=== PATIENT | male | born 1985 | race Caucasian/White ===

== ENCOUNTER 2019-01-21 14:25 | Emergency (ER) | payer OTHER, SELFPAY ==
[2019-01-21 14:26] VITALS: BP 163/104; PULSE 99; RESP 20; TEMP 37; O2SAT 99; BMI 30.8
--- NOTE | 2019-01-21 14:42 | ED.VISSUMM ---
- ER Visit Summary Date of Service: 01/21/19 Chief Complaint: Sore throat, ear pain History of Present Illness: The patient is a 33 M who is otherwise healthy presents to the emergency department sore throat. Patient symptoms began this morning. He states it worsened throughout the day. He states it hurts to swallow. He is stable to drink. He states he feels like something stuck or scratching in his throat. He has had prior tonsillectomy. He is also complaining of some mild right ear pain. He denies any fevers or chills. He denies any cough. He is otherwise healthy. Physical Examination: Exam is relatively unremarkable. The posterior oropharynx is patent. There is no evidence of retropharyngeal or peritonsillar abscess. Patient has no trismus or stridor. He has no drooling. He does have evidence of uvulitis and some palatal petechiae. Neck is supple with scant anterior lymphadenopathy. Heart is regular in rhythm. Lungs are clear. Abdomen soft. Test Results: [] Emergency Department Course and Treatment: Based on the patient's exam, I do feel her symptoms are consistent with a strep pharyngitis. He has palatal petechiae, edema of his uvula, and lymphadenopathy. Patient was given Decadron, viscous lidocaine, Zofran, and Augmentin. The patient did have some improvement of his symptoms. Again, he is able to speak and swallow without issue. I am going to continue him on Decadron and Augmentin. He was counseled on concerning symptoms and reasons to return. He will be discharged home. Treatment Plan: [] Disposition: Discharge Impression: 1. Strep pharyngitis This note was generated with Browserling dictation software. It may contain incorrect words, spelling, and punctuation that were not noted in review of the chart prior to signing ED Disposition - Plan for ED Patient: Instructions: ED Strep Pharyngitis Conf Prescriptions: Ondansetron [Zofran Odt] 4 mg PO Q8H PRN PRN #10 tab PRN Reason: Nausea Amox/Clavulanate Tablet [Augmentin Tablet] 875 mg PO Q12H #20 tab Dexamethasone [Decadron] 4 mg PO BIDCM #6 tab Referrals: Mannie Vargas DO [STAFF PHYSICIAN] -
[2019-01-21] MEDS: Amox/Clavulanate 875 MG Tablet PO (15:01)
[2019-01-21] MEDS: Ondansetron ODT 4 MG Tablet PO (15:01)
[2019-01-21 15:24] VITALS: BP 155/89; PULSE 106; RESP 18; O2SAT 99
== END 2019-01-21 15:25 | disposition home or self-care (01) ==
PROVIDERS: Emergency Provider Emergency Medicine
DX: J02.0 Streptococcal pharyngitis (principal); Z72.0 Tobacco use
CPT/HCPCS: 99283

== ENCOUNTER 2019-01-21 18:10 | Inpatient (IN) | payer OTHER, SELFPAY ==
[2019-01-21] VITALS (20 sets, daily range): BP systolic 106–259; BP diastolic 12–171; PULSE 63–121; RESP 12–20; TEMP 36.4–37.6; O2SAT 95–100; BMI 30.8; BMI 36.9; BMI 32.7
--- NOTE | 2019-01-21 18:30 | CT_ITS ---
We are attempting to reach Kenneth Early MD to discuss findings. An addendum with communication details will be sent when the communication is complete. STUDY: CT SOFT TISSUE NECK WITHOUT CONTRAST REASON FOR EXAM: Male, 33 years old. Neck pain, fullness, sore throat RADIATION DOSAGE (If Supplied By Facility): CTDIvol = ( 21.71 ) mGy, DLP = ( 596.22 ) mGycm TECHNIQUE: The patient was scanned in a multi-detector CT scanner. High resolution transaxial imaging was performed without the administration of intravenous contrast material. Sagittal and coronal images were reconstructed. Individualized dose optimization techniques were used for this CT. COMPARISON: None. FINDINGS: Normal bilateral parotid glands. 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 Normal bilateral parapharyngeal spaces. Normal bilateral carotid spaces. Normal bilateral sublingual and submandibular glands and spaces. Normal visualized nasopharynx. Normal retropharyngeal space. Normal perivertebral space. Mild prominence of the lingual tonsil. The visualized tongue, tongue base and oropharynx are normal. Mild cervical adenopathy. There is no demonstrated solid or cystic mass lesion. Thickened epiglottis with gas noted. Normal bilateral vallecula and hypopharynx. The pre-epiglottic and paraglottic adipose spaces are normal. Normal visualized bilateral piriform sinuses, aryepiglottic folds, vocal cords, and arytenoid-cricoid articulations. Normal subglottic trachea. Normal bilateral lobes of the thyroid gland. Normal visualized pulmonary apices. Mucosal thickening/retention cysts of the right maxillary sinus. Normal visualized cervical spine. CT/Soft Tissue Neck without Contr IMPRESSION: Thickened epiglottis with gas which could be infectious or traumatic in etiology. Mild prominence of the lingual tonsil. Mild bilateral cervical adenopathy. Electronically Signed: Arnold Valentin DO at 19:50 EDT Tel [phone], Service support ,
--- NOTE | 2019-01-21 20:13 | ED.VISSUMM ---
- ER Visit Summary Date of Service: 01/21/19 Chief Complaint: Sore throat History of Present Illness: The patient is a 33 M presented earlier to the emergency department for sore throat. He is here because he thinks it is worse. He denies any headache or chest pain. He tells me as long as he breathes through his nose he has no problems breathing. He is able to talk but he tells me if he gets anxious he feels more short of breath. Physical Examination: Patient appears to be in no significant distress she he is lying comfortably speaking in full sentences however his voice is slightly muffled. He has not leaning forward he is not sitting in a sniffing position. He does appear somewhat anxious. Examining the posterior oropharynx there is some erythema no obvious exudates or edema. No C-spine tenderness supple neck. Regular rate and rhythm without any obvious murmurs Clear lungs bilaterally speaking in full sentences without any obvious respiratory distress. There is no stridor. Abdomen soft and nontender no guarding or rebound Moves all extremities without any difficulty or pain. Skin does not show any obvious rashes or lesions, no trauma. Alert oriented ?3 with no gross focal deficit Emergency Department Course and Treatment: I was worried since the patient had somewhat of a muffled voice and did a CT soft tissue neck, this showed epiglottitis with gas in the epiglottis. I reevaluated the patient. He is still speaking in full sentences but his voice is slightly more muffled than before, now he is sitting somewhat in a sniffing position. He tells me he cannot swallow his secretions or excrete them. At that time patient was moved to a resuscitation room. I did not have an ear nose and throat doctor television actor, however both anesthesia and Dr. Campbell called, Dr. Parish graciously came to the emergency department. Plan was to endotracheally intubate with backup of cricothyrotomy. Attempts to intubate by anesthesia and ENT were unsuccessful. At that time an LMA was inserted. Patient was able to be oxygenated quite well, plan is to go to the operating room for a tracheostomy. Patient received Zosyn, he had quite elevated white count. Disposition: To the operating room in critical condition Impression: Epiglottitis, supraglottitis Critical care time is 35 minutes. This does not include any procedures. This note was generated with Dragon dictation software. It may contain incorrect words, spelling, and punctuation that were not noted in review of the chart prior to signing ED Disposition - Plan for ED Patient: Referrals: Care Physician,No Primary [Primary Care Provider] -
--- NOTE | 2019-01-21 20:17 | ED.DCSUM_ITS ---
- ER Visit Summary Date of Service: 01/21/19 Chief Complaint: Sore throat History of Present Illness: The patient is a 33 M presented earlier to the emergency department for sore throat. He is here because he thinks it is worse. He denies any headache or chest pain. He tells me as long as he breathes thr ough his nose he has no problems breathing. He is able to talk but he tells me if he gets anxious he feels more short of breath. Physical Examination: Patient appears to be in no significant distress she he is lying comfortably speaking in full sentences however his voice is slightly muffled. He has not leaning forward he is not sitting in a sniffing position. He does appear somewhat anxious. Examining the posterior oropharynx there is some erythema no obvious exudates or edema. No C-spine tenderness supple neck. Regular rate and rhythm without any obvious murmurs Clear lungs bilaterally speaking in full sentences without any obvious respiratory distress. There is no stridor. Abdomen soft and nontender no guarding or rebound Moves all extremities without any difficulty or pain. Skin does not show any obvious rashes or lesions, no trauma. Alert oriented ?3 with no gross focal deficit Emergency Department Course and Treatment: I was worried since the patient had somewhat of a muffled voice and did a CT soft tissue neck, this showed epiglottitis with gas in the epiglottis. I reevaluated the patient. He is still speaking in full sentences but his voice is slightly more muffled than before, now he is sitting somewhat in a sniffing position. He tells me he cannot swallow his secretions or excrete them. At th at time patient was moved to a resuscitation room. I did not have an ear nose and throat doctor [employer] [facility] [employer], however both anesthesia and Dr. Campbell called, Dr. Parish graciously came to the emergency department. Plan was to endotracheally intubate with backup of cricothyrotomy. Attempts to intubate by anesthesia and ENT were unsuccessful. At that time an LMA was inserted. Patient was able to be oxygenated quite well, plan is to go to the operating room for a tracheostomy. Patient received Zosyn, he had quite elevated white count. Disposition: To the operating room in critical condition Impression: Epiglottitis, supraglottitis Critical care time is 35 minutes. This does not include any procedures. This note was generated with Dragon dictation software. It may contain incorrect words, spelling, and punctuation that were not noted in review of the chart prior to signing ED Disposition - Plan for ED Patient: Referrals: Care Physician,No Primary [Primary Care Provider] -
[2019-01-21 20:35] LABS: Absolute Lymphocyte Count 1.27 X10^3/ul (0.83-4.51); Absolute Neutrophil Count 30.8 X10^3/uL (2.0-7.7); Basophil# 0.05 X10^3/uL; Basophil% 0.2 % (0-1); Eosinophil# 0.01 X10^3/uL; Hematocrit 48.2 % (40-54); Hemoglobin 16.5 g/dl (13.0-16.5); Lymphocyte # 1.27 X10^3/ul (4.0); Lymphocyte % 3.9 % (19-41); Mean Corp Hgb Conc 34.2 g/gl (32-36); Mean Corpuscular Hgb 29.3 pg (27.0-32.0); Mean Corpuscular Volume 85.6 fL (80-94); Mean Platelet Vol. 11.2 fl (6.2-12.0); Monocyte# 0.68 X10^3/uL; Monocyte% 2.1 % (0-10); Neutrophil # 30.75 X10^3/uL (2.7-7.7); Neutrophil % 93.5 % (47-70); Platelet Count 215 K/mm3 (150-450); RBC Distribution Width CV 12.6 % (11.6-14.6); RBC Distribution Width SD 39.4 fl (35.1-43.9); Red Blood Count 5.63 M/mm3 (4.6-6.2)
[2019-01-21] MEDS: Etomidate 20 MG/10 ML Vial IV (20:35)
[2019-01-21] MEDS: Ketamine HCl 500 MG/5 ML Vial 100 MG IV (20:44)
[2019-01-21 20:45] LABS: Differential Indicated SCAN CRITERIA MET; POSITIVE COUNT YES; POSITIVE DIFFERENTIAL YES; POSITIVE MORPHOLOGY NO; White Blood Count 32.9 K/mm3 (4.4-11.0)
[2019-01-21] MEDS: Propofol 200 MG/20 ML Vial 50 MG IV BOLUS (20:47)
[2019-01-21 20:49] LABS: ALB/GLOB Ratio 1.1 RATIO (0.9-2.4); AST(SGOT) 40 U/L (15-37); Alanine Aminotransfer ALT/SGPT 92 U/L (16-61); Albumin, Serum 4.3 g/dL (3.2-5.0); Alkaline Phosphatase 89 U/L (45-117); Anion Gap 4 (5-15); BUN 15 mg/dL (7-18); BUN/Creat Ratio 13.9 RATIO (10-20); Calcium,Total 9.4 mg/dL (8.5-10.1); Chloride 107 mmol/L (98-107); Creatinine, Serum 1.08 mg/dL (0.70-1.30); EST Glomerular Filtration Rate 84 mL/min (>60); Est Glom Filt Rate - Afr Amer 102 mL/min (>60); Estimated Creatinine Clearance 98.19 ml/min; Globulin 3.9 g/dL (2.2-4.2); Glucose 117 mg/dL (74-106); Potassium 4.7 mmol/L (3.5-5.1); Protein, Total 8.2 g/dL (6.4-8.2); Sodium Level 138 mmol/L (136-145)
[2019-01-21] MEDS: Propofol 10MG/Ml 1,000 MG/100 ML Bottle 100.017 MG CONT INF (20:51)
--- NOTE | 2019-01-21 21:00 | CPS ---
Multiple attempts made to intubate patient with Mac 4 and glidescope by ENT and anesthesia. 4.5 LMA inserted by anesthesia and pt taken to OR for tracheostomy.
[2019-01-21 21:01] LABS: Differential Comment SCANNED
--- NOTE | 2019-01-21 21:05 | ED.RN ---
LACTIC OF 2.0 REPORTED TO
--- NOTE | 2019-01-21 21:10 | ED.RN ---
dr. rowe aware of wbc 32.9
--- NOTE | 2019-01-21 21:19 | PCM.HP.STD ---
Problem List (1) Epiglottitis Status: Acute (2) Severe sepsis Status: Acute (3) Tobacco use Status: Chronic (4) Obesity (BMI 30-39.9) Status: Chronic (5) History of ETOH abuse Status: Chronic (6) Hypertension Status: Chronic Qualifiers: Hypertension type: essential hypertension Qualified Code(s): I10 - Essential (primary) hypertension History of Present Illness Date of Admission: 01/21/19 Chief Complaint: Sore throat, difficulty swallowing, muffled voice. The patient is a 33 y/o M w/ PMHx: Tobacco use, Obesity, History of EtOH abuse, Hypertension off regimen for nearly 1 year per family report who presented initially earlier in the AM to [facility] on 01/21/19 with complaint of sore throat, difficulty swallowing and mild voice changes with ED administration abx and steroid regimen w/ discharge; however, patient had progressively worsened sore throat, eventual difficulty managing his secretions with worsened muffled voice and sensation of something being caught in his throat prompting return. He denied any associated fever or chills. Work-up in the ED included T 99.6, HR 96-->125-->101, BP 188/107, RR 18, 97% on RA-->BP 191/125, 14, 100% on RA, CBC w/ WBC 32.9, Hgb 16.5, Plt 215 with L shift, CMP notable glucose 117, AST/ALT 40/92, Bld Cx x 2 pending per ED, CT soft tissue/neck w/ thickened epiglottis with gas, mild prominence of the lingual tonsil, mild bilateral cervical adenopathy. In the ED patient clinically worsened, both ENT and anesthesia attempted intubation but was not successful therefore LMA placed and patient transitioned to the OR for tracheostomy placement. In the ED patient administered zosyn, NS, propofol, ketamine, succinylcholine as well as etomidate. Past Medical History Past Medical History (Chronic Problems): Chronic Problems Tobacco use (Chronic) Obesity (BMI 30-39.9) (Chronic) History of ETOH abuse (Chronic) Hypertension (Chronic) Allergies No Known Allergies Allergy (Verified 01/21/19 14:28) Home Medications: Ambulatory Orders Medication Instructions Recorded Amox/Clavulanate Tablet [Augmentin 875 mg PO Q12H #20 tab 01/21/19 Tablet] Dexamethasone [Decadron] 4 mg PO BIDCM #6 tab 01/21/19 Ondansetron [Zofran Odt] 4 mg PO Q8H PRN PRN #10 tab 01/21/19 Surgical History: cholecystectomy, tonsillectomy Psychiatric History: No pertinent psych hx Lives: Alone Smoking Status: Current some day smoker Tobacco Use: Cigarettes Alcohol: Heavy - Family notes history of heavy alcohol consumption on the weekends, up to 12 beers in one setting but states that he has not to their knowledge been drinking for the last several months. Drugs: None - *Family History Maternal History Items: Diabetes, Heart Disease, Hypertension Paternal History Items: Diabetes, Heart Disease, Hypertension Review of Systems Constitutional: Reports: Anorexia, Malaise, Weakness, Fatigue. Denies: Chills, Fever, Weight Change HEENT: Reports: Difficulty Swallowing, Sore Throat, - - Muffled voice.. Denies: Head Aches, Sinus Congestion, Sinus Drainage Cardiovascular: Denies: Chest Pain, Palpitations Respiratory: Denies: Cough, Shortness of breath at rest, Sputum production Gastrointestinal: Denies: Abdominal Pain, Nausea, Vomiting Genitourinary: Denies: Dysuria Musculoskeletal: Denies: Joint Pain, Joint Tenderness Skin: Denies: Rash, Wounds Neurological: Denies: Numbness, Tingling, Focal weakness Psychiatric: Denies: Anxiety, Depression, Homicidal Ideations, Suicidal Ideations Hematologic/ Lymphatic: Denies: Easy Bruising, Easy Bleeding Comment: ROS obtained per family as well as ED physician and ENT who evaluated the patient prior to his operative intervention and sedation. VTE Information - Inpt Only VTE Present on Admission: No VTE Mechan Device Prophylaxis: SCD's VTE Pharm Prophylaxis ordered?: Yes Patient Problems: Active and Suspected Problems Epiglottitis (Acute) Severe sepsis (Acute) Subjective: Laying in the ICU bed, status post tracheostomy placement, sedated. Objective: Physical Examination: General: Sedated, not alert, unable to answer any orientation questions, laying in the OR bed, status post recent tracheostomy placement. Skin: normal color, turgor, no icterus, cyanosis, no obvious bleeding from the recent tracheostomy placement. HEENT: AT/NC, EOM will to be assessed, PERRLA, dry MM, recent tracheostomy secondary to epiglottitis, no carotid bruits or JVD noted; ever, thickened neck makes examination difficult. Lungs: Symmetric rise, intubated, sedated, diminished bases, no rales, ronchi or wheezing. Heart: Tachycardic with regular rhythm; no gallop, rub audible. Abdomen: soft, obese, NTTP, ND, normal BS, no HSM;, habitus makes examination difficult. Extremities: no cyanosis, clubbing, or edema. Neurological: Sedated, not alert, unable to answer any orientation questions, laying in the OR bed, status post recent tracheostomy placement; cognitive function given sedation of course not baseline intact; pupils equally reactive to light and accomodation; cranial nerves able to be fully assessed given sedation, status post recent OR, strength accordingly severely globally decreased. Psychiatric: affect appears sedated, flat, no acute evidence of depressive or anxiety feelings. - Physical Exam Vital Signs Temp Pulse Resp BP Pulse Ox 99.6 F H 101 H 14 191/125 H 100 01/21/19 18:25 01/21/19 21:09 01/21/19 21:09 01/21/19 21:09 01/21/19 21:09 Oxygen Delivery Method Mechanical Ventilator Weight: 250 lb Body Mass Index (BMI) 36.9 Laboratory Tests Past 24 Hrs 01/21/19 01/21/19 01/21/19 20:19 20:19 20:19 WBC 32.9 H* RBC 5.63 Hgb 16.5 Hct 48.2 MCV 85.6 MCH 29.3 MCHC 34.2 RDW 12.6 RDW Differential 39.4 Plt Count 215 MPV 11.2 Immature Gran % (Auto) 0.300 Neut % (Auto) 93.5 H Lymph % (Auto) 3.9 L [place] % (Auto) 2.1 Eos % (Auto) 0.0 Baso % (Auto) 0.2 Absolute Neuts (auto) 30.8 H Absolute Lymphs (auto) 1.27 Total Counted Not Reportable Differential Comment SCANNED Diff Path Review May foll Sodium 138 Potassium 4.7 Chloride 107 Carbon Dioxide 27.0 Anion Gap 4 L BUN 15 Creatinine 1.08 Estim Creat Clear Calc 98.19 Est GFR (MDRD) Af Amer 102 Est GFR (MDRD) Non-Af 84 BUN/Creatinine Ratio 13.9 Glucose 117 H Lactic Acid 2.0 Calcium 9.4 Total Bilirubin 0.40 AST 40 H ALT 92 H Alkaline Phosphatase 89 Total Protein 8.2 Albumin 4.3 Globulin 3.9 Albumin/Globulin Ratio 1.1 Assessment/Plan All Active Problems Epiglottitis (Acute) Severe sepsis (Acute) The patient is a 33 y/o M w/ PMHx: Tobacco use, Obesity, History of EtOH Abuse, Hypertension off regimen for ~ 1 year per family report who presented initially earlier in the AM to [facility] on 01/21/19 with complaint of sore throat, difficulty swallowing and mild voice changes with ED administration abx and steroid regimen w/ discharge; however, patient had progressively worsened sore throat, eventual difficulty managing his secretions with worsened muffled voice and sensation of something being caught in his throat prompting return. He denied any associated fever or chills. (1) Acute Severe Sepsis secondary to Acute Epiglottitis, Supraglottitis: Work-up in the ED included T 99.6, HR 96-->125-->101, BP 188/107, RR 18, 97% on RA-->BP 191/125, 14, 100% on RA, CBC w/ WBC 32.9, Hgb 16.5, Plt 215 with L shift, CMP notable glucose 117, AST/ALT 40/92, Bld Cx x 2 pending per ED, CT soft tissue/neck w/ thickened epiglottis with gas, mild prominence of the lingual tonsil, mild bilateral cervical adenopathy. In the ED patient clinically worsened, both ENT and anesthesia attempted intubation but was not successful therefore LMA placed and patient transitioned to the OR for tracheostomy placement with notable sized thyroid, divided to safely place trach. Will admit to the ICU following trach placement per Dr. Richards, will treat with vanc and rocephin therapy, await OR cultures for de-escalation with expected swelling improvement over the next 24-48 hours, defer any further steroid usage given airway currently secured per discussion with ENT, routine trach care, continue sedation, ICU physician consultation. TSH, FT4 pending given OR findings. (2) Tobacco Abuse: Encourage cessation, inpatient consultation per RT, NR if desired although family notes sporadic. (3) Obesity: Weight loss and lifestyle changes encouraged. (4) Elevated LFTs w/ History of EtOH abuse: Family notes prior history of weekend binge drinking with 12 beers in single setting but note belief he has not in several months. Admission AST/ALT 40/92, hepatitis panel, liver US pending. Repeat CMP in AM. (5) Hypertension: Off regimen for nearly 1 year per family report, vital signs upon presentation with notably elevated blood pressures, continue to monitor, currently on sedation, PRN IV hydralazine with transition once oral intake safe to oral antihypertensive regimen. (6) GERD: Famotidine. (7) DVT Prophylaxis: SCDs, lovenox. Code Visit Inpatient E&M: 56820 Init Hosp L3
--- NOTE | 2019-01-21 21:22 | ED.RN ---
UNABLE TO INTUBATE. LMA 4.5 PLACED.
--- NOTE | 2019-01-21 22:21 | PCM.OPRPT ---
Report of Operation Date of Procedure: 01/21/19 Pre-Operative Diagnosis: supraglottitis Post-Operative Diagnosis: supraglottitis Surgery/Procedure Performed:: emergent tracheostomy with mitzi flap Type of Anesthesia:: General Description of Procedure: on the day of the procedure, the patient was taken urgently from the ED with a tenuous LMA in place with oxygen desaturations. he was left on the ED cart. his neck was injected with lidocaine/epinephrine and prepped/draped in sterile fashion. a 2cm low transverse incision was made 2cm superior to the sternal notch. a lipectomy was performed. the infrahyoid strap muscles were divided along their midline raphe and retracted laterally with allis clamps. the deep straps were also retracted laterally. immediately, the patient had a large thyroid gland overlying the first four tracheal rings. the isthmus was divided with the bovie. hemostasis was achieved. the airway was entered between tracheal rings 1 and 2. a mitzi flap was created. this was sutured to overlying skin with a 2-0 ethibond. the trachea was suctioned and a #8DCT trach tube was placed. the circuit was connected and confirmed end tidal CO2. the trach was sutured at 4 corners and secured with an umbilical tie. he was stable and transferred to the ICU.
--- NOTE | 2019-01-21 22:35 | CON.PCM_ITS ---
Problem List (1) Epiglottitis Status: Acute Reason for Consult Date of Consultation: 01/21/19 History of Present Illness: The patient is a 33 year old M with acute worsening sore throat who, per record, presented to the ED today, was treated with steroids/antibiotics and discharged. he returned tonight only with acute worsening which included inability to tolerate secretions, severely muffled voice; he had no stridor at this time. he proceeded to clinically deteriorate in the ED. a CT demonstrated severe supraglottic edema and lymphadenopathy. given his clinical course, it was deemed necessary to intubate him in the ED with anesthesia. the glide scope and MAC blade were both unsuccessful at obtaining glottic anatomic views given the severe status of his larynx. saturations were maintained throughout with bag masking. an LMA was placed to buy time and he was transported to the OR where an emergent tracheostomy was performed. Past Medical History Past Medical History (Chronic Problems): Chronic Problems Tobacco use (Chronic) Obesity (BMI 30-39.9) (Chronic) History of ETOH abuse (Chronic) Hypertension (Chronic) Allergies No Known Allergies Allergy (Verified 01/21/19 14:28) Home Medications: Ambulatory Orders Medication Instructions Recorded Amox/Clavulanate Tablet [Augmentin 875 mg PO Q12H #20 tab 01/21/19 Tablet] Dexamethasone [Decadron] 4 mg PO BIDCM #6 tab 01/21/19 Ondansetron [Zofran Odt] 4 mg PO Q8H PRN PRN #10 tab 01/21/19 Surgical History: cholecystectomy, tonsillectomy Psychiatric History: No pertinent psych hx Lives: Alone Smoking Status: Current some day smoker Tobacco Use: Cigarettes Alcohol: Heavy - Family notes history of heavy alcohol consumption on the weekends, up to 12 beers in one setting but states that he has not to their knowledge been drinking for the last several months. Drugs: None - *Family History Maternal History Items: Diabetes, Heart Disease, Hypertension Paternal History Items: Diabetes, Heart Disease, Hypertension Patient Problems: Active and Suspected Problems Epiglottitis (Acute) Severe sepsis (Acute) Subjective: x - Physical Exam General: Alert Oral: - - severe secretions, muffled voice Lungs: - - no stridor Vital Signs Temp Pulse Resp BP Pulse Ox 99.6 F H 101 H 14 191/125 H 100 01/21/19 18:25 01/21/19 21:09 01/21/19 21:09 01/21/19 21:09 01/21/19 21:09 Oxygen Delivery Method Room Air Weight: 113.398 kg Body Mass Index (BMI) 36.9 Laboratory Tests Past 24 Hrs 01/21/19 01/21/19 01/21/19 20:19 20:19 20:19 WBC 32.9 H* RBC 5.63 Hgb 16.5 Hct 48.2 MCV 85.6 MCH 29.3 MCHC 34.2 RDW 12.6 RDW Differential 39.4 Plt Count 215 MPV 11.2 Immature Gran % (Auto) 0.300 Neut % (Auto) 93.5 H Lymph % (Auto) 3.9 L [place] % (Auto) 2.1 Eos % (Auto) 0.0 Baso % (Auto) 0.2 Absolute Neuts (auto) 30.8 H Absolute Lymphs (auto) 1.27 Total Counted Not Reportable Differential Comment SCANNED Diff Path Review May foll Sodium 138 Potassium 4.7 Chloride 107 Carbon Dioxide 27.0 Anion Gap 4 L BUN 15 Creatinine 1.08 Estim Creat Clear Calc 98.19 Est GFR (MDRD) Af Amer 102 Est GFR (MDRD) Non-Af 84 BUN/Creatinine Ratio 13.9 Glucose 117 H Lactic Acid 2.0 Calcium 9.4 Total Bilirubin 0.40 AST 40 H ALT 92 H Alkaline Phosphatase 89 Total Protein 8.2 Albumin 4.3 Globulin 3.9 Albumin/Globulin Ratio 1.1 Assessment/Plan All Active Problems Epiglottitis (Acute) Severe sepsis (Acute) 33 year old male with acute supraglottitis -tracheostomy placed, airway secured -WBC 32k - this is likely a severe infection, but this WBC is after IV steroids. would treat for sepsis with IV antibiotics; i do not believe serial redosing with steroids is necessary. -will continue to follow
[2019-01-21] MEDS: Propofol 10MG/Ml 1,000 MG/100 ML Bottle 6.804 MG CONT INF (22:40)
[2019-01-21] MEDS: 0.9% Normal Saline 1,000 ML 125 ML IV (22:40)
[2019-01-21] MEDS: fentaNYL drip 100 ML 2.5 MCG IV (22:52)
[2019-01-21 23:00] LABS: Phosphorus 1.8 mg/dL (2.5-4.9); T4 Free Direct 0.94 ng/dL (0.76-1.46); Thyroid Stim Hormone (TSH) 0.23 uIU/mL (0.358-3.74)
[2019-01-21] MEDS: Chlorhexidine 15 ML PO (23:17)
[2019-01-21] MEDS: 0.9% NaCl Peripheral Flush Adult/Peds IV (23:20)
[2019-01-22] VITALS (34 sets, daily range): BP systolic 91–164; BP diastolic 40–94; PULSE 50–88; RESP 10–99; TEMP 36.4–36.9; O2SAT 17–100
[2019-01-22 00:01] LABS: Allen Test POS; Base Excess 0 mmol/L (-2 to +2); Bicarbonate 26.5 mmol/L (22-26); Blood Gas Specimen Type ART; FI02 50; Mode A-C; O2 Delivery Device Vent; PEEP 5; PO2 141 mmHG (75-100); RR 16; SITE L Radial; SO2 99 % (95-99); Time Given 2350; Total Carbon Dioxide 28 mmol/L; Vt 550; pCO2 53.8 mmHg (35-45)
[2019-01-22] MEDS: 0.9% NaCl Peripheral Flush Adult/Peds IV ×2 (00:15→10:30)
[2019-01-22 00:27] LABS: Reflex Lactate? Y
[2019-01-22 01:06] LABS: Amphetamine Urine VISTA NEGATIVE (<1000 ng/mL); Barbiturate Urine VISTA NEGATIVE (< 200 ng/mL); Benzodiazepine Urine VISTA NEGATIVE (< 200 ng/mL); Cocaine Urine VISTA NEGATIVE (< 300 ng/mL); Ecstacy Urine VISTA NEGATIVE (< 500 ng/mL); Methadone Urine VISTA NEGATIVE (< 300 ng/mL); PCP Urine VISTA NEGATIVE (< 25 ng/mL); THC Urine VISTA NEGATIVE (< 50 ng/mL); Vista UDS pH Range 5
--- NOTE | 2019-01-22 01:11 | PCM.RX.CS ---
Consult Pharmacy has been consulted to manage selected antiobiotic: Vancomycin Type of Consult: New start Suspected Infection: Sepsis Labs: Sodium 138 mmol/L (136-145) 01/21/19 20:19 Potassium 4.7 mmol/L (3.5-5.1) 01/21/19 20:19 Chloride 107 mmol/L (98-107) 01/21/19 20:19 Carbon Dioxide 27.0 mmol/L (21.0-32.0) 01/21/19 20:19 Anion Gap 4 (5-15) L 01/21/19 20:19 BUN 15 mg/dL (7-18) 01/21/19 20:19 Creatinine 1.08 mg/dL (0.70-1.30) 01/21/19 20:19 Est GFR (MDRD) Af Amer 102 mL/min (>60) 01/21/19 20:19 Est GFR (MDRD) Non-Af 84 mL/min (>60) 01/21/19 20:19 BUN/Creatinine Ratio 13.9 RATIO (10-20) 01/21/19 20:19 Glucose 117 mg/dL (74-106) H 01/21/19 20:19 Weight used for dosin kg Estimated Creatinine Clearance: 98.19 Goal Trough: 10-15 mcg/mL Pharmacy Plan for Drug Dosing: Pharmacy Service will continue to monitor and adjust dosing as required. Medications Vancomycin HCl 1,500 mg/ (Sodium Chloride) 530 mls @ 250 mls/hr IV Q12H MELODY Vancomycin HCl 2,000 mg/ (Sodium Chloride) 540 mls @ 250 mls/hr IV X1 ONE Stop: 01/22/19 01:39 Last Admin: 01/22/19 00:16 Dose: 250 mls/hr Follow-Up Labs: Trough Vancomycin Labs to be done on [date and time ordered]: 16 @ 1238
[2019-01-22 01:30] LABS: Lactic Acid 2.5 mmol/L (0.4-2.0)
[2019-01-22] MEDS: Propofol 10MG/Ml 1,000 MG/100 ML Bottle 6.804 MG CONT INF ×2 (01:53→05:44)
[2019-01-22] MEDS: 0.9% Normal Saline 1,000 ML 999 ML IV ×2 (05:55→06:16)
--- NOTE | 2019-01-22 05:55 | US_ITS ---
STUDY: ABDOMINAL ULTRASOUND - RIGHT UPPER QUADRANT REASON FOR VISIT: Male, 33 years old. Elevated liver function tests. TECHNIQUE: Ultrasound evaluation of the right upper quadrant was performed with real-time and static rogers-scale imaging. TECHNICAL QUALITY: Adequate. COMPARISON: None. FINDINGS: Liver: The liver is enlarged and measures 25 cm. There is increased echogenicity consistent with fatty infiltration. The bile ducts are within normal limits. There is hepatic color flow. The direction of portal flow is hepatopetal. There is no demonstrated mass lesion. Gallbladder: The patient is status post cholecystectomy. Common Bile Duct (C.B.D.): The common bile duct measures 3.5 mm. Pancreas: Normal size of the head, body and tail of the pancreas. There is normal echogenicity of the pancreas. There is no demonstrated pancreatic mass or cyst. Right Kidney: Normal size of the right kidney. The right kidney measures 12.0 cm x 6.2 cm x 4.6 cm. Normal renal cortex. The right cortex measures 1.5 cm. There is no demonstrated renal mass or cyst. There is no right hydronephrosis. Trace amount of the right pleural effusion. US/Liver IMPRESSION: Hepatomegaly and fatty infiltration of the liver. Electronically Signed: Alfonso Sahu, at 11:30 EDT , Service support ,
[2019-01-22 05:58] LABS: Absolute Lymphocyte Count 0.82 X10^3/ul (0.83-4.51); Absolute Neutrophil Count 30.4 X10^3/uL (2.0-7.7); Basophil# 0.02 X10^3/uL; Basophil% 0.1 % (0-1); Hematocrit 42.1 % (40-54); Hemoglobin 14.3 g/dl (13.0-16.5); Lymphocyte # 0.82 X10^3/ul (4.0); Lymphocyte % 2.5 % (19-41); Mean Corpuscular Hgb 29.4 pg (27.0-32.0); Mean Corpuscular Volume 86.6 fL (80-94); Mean Platelet Vol. 11.3 fl (6.2-12.0); Monocyte# 1.85 X10^3/uL; Monocyte% 5.6 % (0-10); Neutrophil # 30.38 X10^3/uL (2.7-7.7); Neutrophil % 91.5 % (47-70); Platelet Count 274 K/mm3 (150-450); RBC Distribution Width CV 12.8 % (11.6-14.6); RBC Distribution Width SD 39.6 fl (35.1-43.9); Red Blood Count 4.86 M/mm3 (4.6-6.2)
[2019-01-22 05:59] LABS: Differential Indicated SCAN CRITERIA MET; POSITIVE COUNT YES; POSITIVE DIFFERENTIAL YES; POSITIVE MORPHOLOGY NO; White Blood Count 33.2 K/mm3 (4.4-11.0)
[2019-01-22 06:10] LABS: ALB/GLOB Ratio 0.9 RATIO (0.9-2.4); AST(SGOT) 31 U/L (15-37); Alanine Aminotransfer ALT/SGPT 71 U/L (16-61); Albumin, Serum 3.2 g/dL (3.2-5.0); Alkaline Phosphatase 67 U/L (45-117); Anion Gap 7 (5-15); BUN 23 mg/dL (7-18); BUN/Creat Ratio 12.4 RATIO (10-20); Calcium,Total 7.7 mg/dL (8.5-10.1); Chloride 110 mmol/L (98-107); Creatinine, Serum 1.86 mg/dL (0.70-1.30); EST Glomerular Filtration Rate 45 mL/min (>60); Est Glom Filt Rate - Afr Amer 54 mL/min (>60); Estimated Creatinine Clearance 71.85 ml/min; Globulin 3.6 g/dL (2.2-4.2); Glucose 130 mg/dL (74-106); Lactic Acid 2.3 mmol/L (0.4-2.0); Potassium 6.8 mmol/L (3.5-5.1); Protein, Total 6.8 g/dL (6.4-8.2); Sodium Level 141 mmol/L (136-145)
[2019-01-22] MEDS: fentaNYL drip 100 ML 2.5 MCG IV ×3 (06:12→23:01)
[2019-01-22] MEDS: 0.9% Normal Saline 1,000 ML 125 ML IV ×3 (06:57→23:19)
[2019-01-22 06:58] LABS: Differential Comment SCAN
--- NOTE | 2019-01-22 07:23 | CON.PCM_ITS ---
Reason for Consult Date of Consultation: 01/22/19 Reason for Consultation: Epiglottitis status post tracheostomy History of Present Illness: The patient is a 33-year-old male, with a history as outlined below, who presented to the emergency department initially on January 21 with complaints of a sore throat. The patient has a known history of polysubstance abuse. On presentation to the emergency department, the patient was noted to be hypertensive but maintaining appropriate oxygen saturations on room air. Laboratory evaluation revealed elevated white blood cell count to 33,000. Chemistry profile was largely unremarkable. Phosphorus was low at 1.8. Lactate was initially elevated to 2.5. CT soft tissue neck revealed a thickened epiglottis with gas along with mild prominence of the lingual tonsil and mild bilateral cervical adenopathy. While in the emergency department, the patient's voice was noted to become more muffled and he was having difficulty with swallowing and handling secretions. Over concerns for the patient's airway, attempts were undertaken to electively intubate the patient. However, the patient was not able to be intubated by anesthesia or ENT. An LMA was subsequently inserted and the patient was taken to the OR for tracheostomy. Postoperatively, the patient was transferred to the medical intensive care unit for ongoing management. This morning, the patient's potassium was noted to be elevated to 6.8. He has also developed acute kidney injury with a creatinine of 1.86. Past Medical History Past Medical History (Chronic Problems): Chronic Problems Tobacco use (Chronic) Obesity (BMI 30-39.9) (Chronic) History of ETOH abuse (Chronic) Hypertension (Chronic) Allergies No Known Allergies Allergy (Verified 01/21/19 14:28) Home Medications: Ambulatory Orders Medication Instructions Recorded Amox/Clavulanate Tablet [Augmentin 875 mg PO Q12H #20 tab 01/21/19 Tablet] Dexamethasone [Decadron] 4 mg PO BIDCM #6 tab 01/21/19 Ondansetron [Zofran Odt] 4 mg PO Q8H PRN PRN #10 tab 01/21/19 Surgical History: cholecystectomy, tonsillectomy Psychiatric History: No pertinent psych hx Lives: Alone Smoking Status: Current some day smoker Tobacco Use: Cigarettes Alcohol: Heavy - Family notes history of heavy alcohol consumption on the weekends, up to 12 beers in one setting but states that he has not to their knowledge been drinking for the last several months. Drugs: None - *Family History Maternal History Items: Diabetes, Heart Disease, Hypertension Paternal History Items: Diabetes, Heart Disease, Hypertension Review of Systems Unable to obtain accurate/complete ROS d/t: Due to current sedation and me chanical ventilation status. Patient Problems: Active and Suspected Problems Epiglottitis (Acute) Severe sepsis (Acute) Objective: The patient's most recent lab work, culture data and imaging studies have all been personally reviewed. Blood cultures are currently pending. - Physical Exam General: Alert, Cooperative, - - Currently mechanically ventilated on assist control. HEENT: Normocephalic, - - Tracheostomy site is C/D/I Oral: No Gingival or Mucosal Lesions/ Ulcerations Neck: Supple, No Nodes Lungs: Normal air movement, No rhonchi, No wheeze, No rales Cardiovascular: Normal S1, Normal S2, No murmurs, Tachycardic Abdomen: Bowel Sounds Present, Soft, Non Tender, Obese Extremities: No clubbing, No cyanosis, No edema Skin: No breakdown Musculoskeletal: No Tenderness to Palpation of Joints or Extremities, No Muscle Wasting Lymphatic: No Cervical, Supraclavicular, or Inguinal Adenopathy Neurological: Cranial nerves II-XII grossly intact, Neuro grossly intact Psych/Mental Status: Anxious, Restless Vital Signs Temp Pulse Resp BP Pulse Ox 36.6 C 71 16 91/44 L 99 01/22/19 04:00 01/22/19 06:40 01/22/19 06:40 01/22/19 06:00 01/22/19 06:40 Oxygen Delivery Method Mechanical Ventilator Weight: 276 lb 7.355 oz Body Mass Index (BMI) 32.7 Intake and Output for Last 24 Hours 01/20/19 01/21/19 01/22/19 23:59 23:59 23:59 Intake Total 1984.9 / 1984.9 Output Total 600 / 600 Balance 1384.9 / 1384.9 Laboratory Tests Past 24 Hrs 01/21/19 01/21/19 01/21/19 20:19 20:19 20:19 WBC 32.9 H* Corrected WBC RBC 5.63 Hgb 16.5 Hct 48.2 MCV 85.6 MCH 29.3 MCHC 34.2 RDW 12.6 RDW Differential 39.4 Plt Count 215 MPV 11.2 Immature Gran % (Auto) 0.300 Neut % (Auto) 93.5 H Lymph % (Auto) 3.9 L [place] % (Auto) 2.1 Eos % (Auto) 0.0 Baso % (Auto) 0.2 Absolute Neuts (auto) 30.8 H Absolute Lymphs (auto) 1.27 Total Counted Not Reportable Neutrophils % (Manual) Band Neutrophils % Lymphocytes % (Manual) Monocytes % (Manual) Eosinophils % (Manual) Basophils % (Manual) Metamyelocytes % Myelocytes % Promyelocytes % Blast Cells % Plasma Cell % (Manual) Other Cells % Nucleated RBCs/100 WBC Differential Comment SCANNED Diff Path Review May foll Hypersegmented Neuts Atypical Lymphocytes Reactive Lymphocytes Smudge Cells Toxic Granulation Dohle Bodies Travis Rods Platelet Estimate Plt Morphology Comment RBC Morphology Polychromasia Hypochromasia Poikilocytosis Basophilic Stippling Anisocytosis Microcytosis Macrocytosis Spherocytes Sickle Cells Target Cells Tear Drop Cells Ovalocytes Stomatocytes [place] Bodies Bry Cells Bite Cells Acanthocytes (Spur) Rouleaux Schistocytes Specimen Type Sample Site pH Bicarbonate Actual POC Total CO2 Base Excess O2 Saturation O2 % ABG pCO2 ABG pO2 Rommel Test Respiration Rate O2 Delivery Device Vent Mode Tidal Volume POC PEEP Blood Gas Notified Whom Blood Gas Notified Time Sodium 138 Potassium 4.7 Chloride 107 Carbon Dioxide 27.0 Anion Gap 4 L BUN 15 Creatinine 1.08 Estim Creat Clear Calc 98.19 Est GFR (MDRD) Af Amer 102 Est GFR (MDRD) Non-Af 84 BUN/Creatinine Ratio 13.9 Glucose 117 H Lactic Acid 2.0 Calcium 9.4 Phosphorus Magnesium Total Bilirubin 0.40 AST 40 H ALT 92 H Alkaline Phosphatase 89 Total Protein 8.2 Albumin 4.3 Globulin 3.9 Albumin/Globulin Ratio 1.1 TSH Free T4 Urine Opiates Screen Urine Methadone Screen Ur Barbiturates Screen Ur Phencyclidine Scrn Ur Amphetamines Screen U Methamphetamin-MDMA U Benzodiazepines Scrn Urine Cocaine Screen U Cannabinoids Screen Ur Drug Screen Comment Hepatitis A IgM Ab Hepatitis A Ab Total Hep Bs Antigen Hep B Core Total Ab Hep B Core IgM Ab 01/21/19 01/21/19 01/21/19 20:19 20:19 23:54 WBC Corrected WBC RBC Hgb Hct MCV MCH MCHC RDW RDW Differential Plt Count MPV Immature Gran % (Auto) Neut % (Auto) Lymph % (Auto) [place] % (Auto) Eos % (Auto) Baso % (Auto) Absolute Neuts (auto) Absolute Lymphs (auto) Total Counted Neutrophils % (Manual) Band Neutrophils % Lymphocytes % (Manual) Monocytes % (Manual) Eosinophils % (Manual) Basophils % (Manual) Metamyelocytes % Myelocytes % Promyelocytes % Blast Cells % Plasma Cell % (Manual) Other Cells % Nucleated RBCs/100 WBC Differential Comment Diff Path Review Hypersegmented Neuts Atypical Lymphocytes Reactive Lymphocytes Smudge Cells Toxic Granulation Dohle Bodies Travis Rods Platelet Estimate Plt Morphology Comment RBC Morphology Polychromasia Hypochromasia Poikilocytosis Basophilic Stippling Anisocytosis Microcytosis Macrocytosis Spherocytes Sickle Cells Target Cells Tear Drop Cells Ovalocytes Stomatocytes [place] Bodies [place] Cells Bite Cells Acanthocytes (Spur) Rouleaux Schistocytes Specimen Type ART Sample Site L Radial pH 7.30 L Bicarbonate Actual 26.5 H POC Total CO2 28 Base Excess 0 O2 Saturation 99 O2 % 50 ABG pCO2 53.8 H ABG pO2 141 H Rommel Test POS Respiration Rate 16 O2 Delivery Device Vent Vent Mode A-C Tidal Volume 550 POC PEEP 5 Blood Gas Notified Whom HOSP MD Blood Gas Notified Time 2350 Sodium Potassium Chloride Carbon Dioxide Anion Gap BUN Creatinine Estim Creat Clear Calc Est GFR (MDRD) Af Amer Est GFR (MDRD) Non-Af BUN/Creatinine Ratio Glucose Lactic Acid Calcium Phosphorus 1.8 L Magnesium 2.0 Total Bilirubin AST ALT Alkaline Phosphatase Total Protein Albumin Globulin Albumin/Globulin Ratio TSH 0.23 L Free T4 0.94 Urine Opiates Screen Urine Methadone Screen Ur Barbiturates Screen Ur Phencyclidine Scrn Ur Amphetamines Screen U Methamphetamin-MDMA U Benzodiazepines Scrn Urine Cocaine Screen U Cannabinoids Screen Ur Drug Screen Comment Hepatitis A IgM Ab Pending Hepatitis A Ab Total Pending Hep Bs Antigen Pending Hep B Core Total Ab Pending Hep B Core IgM Ab Pending 01/22/19 01/22/19 01/22/19 00:20 00:48 04:45 WBC Cancelled Corrected WBC Cancelled RBC Cancelled Hgb Cancelled Hct Cancelled MCV Cancelled MCH Cancelled MCHC Cancelled RDW Cancelled RDW Differential Cancelled Plt Count Cancelled MPV Cancelled Immature Gran % (Auto) Cancelled Neut % (Auto) Cancelled Lymph % (Auto) Cancelled [place] % (Auto) Cancelled Eos % (Auto) Cancelled Baso % (Auto) Cancelled Absolute Neuts (auto) Cancelled Absolute Lymphs (auto) Cancelled Total Counted Cancelled Neutrophils % (Manual) Cancelled Band Neutrophils % Cancelled Lymphocytes % (Manual) Cancelled Monocytes % (Manual) Cancelled Eosinophils % (Manual) Cancelled Basophils % (Manual) Cancelled Metamyelocytes % Cancelled Myelocytes % Cancelled Promyelocytes % Cancelled Blast Cells % Cancelled Plasma Cell % (Manual) Cancelled Other Cells % Cancelled Nucleated RBCs/100 WBC Cancelled Differential Comment Cancelled Diff Path Review Cancelled Hypersegmented Neuts Cancelled Atypical Lymphocytes Cancelled Reactive Lymphocytes Cancelled Smudge Cells Cancelled Toxic Granulation Cancelled Dohle Bodies Cancelled Travis Rods Cancelled Platelet Estimate Cancelled Plt Morphology Comment Cancelled RBC Morphology Cancelled Polychromasia Cancelled Hypochromasia Cancelled Poikilocytosis Cancelled Basophilic Stippling Cancelled Anisocytosis Cancelled Microcytosis Cancelled Macrocytosis Cancelled Spherocytes Cancelled Sickle Cells Cancelled Target Cells Cancelled Tear Drop Cells Cancelled Ovalocytes Cancelled Stomatocytes Cancelled [place] Bodies Cancelled [place] Cells Cancelled Bite Cells Cancelled Acanthocytes (Spur) Cancelled Rouleaux Cancelled Schistocytes Cancelled Specimen Type Sample Site pH Bicarbonate Actual POC Total CO2 Base Excess O2 Saturation O2 % ABG pCO2 ABG pO2 Rommel Test Respiration Rate O2 Delivery Device Vent Mode Tidal Volume POC PEEP Blood Gas Notified Whom Blood Gas Notified Time Sodium Potassium Chloride Carbon Dioxide Anion Gap BUN Creatinine Estim Creat Clear Calc Est GFR (MDRD) Af Amer Est GFR (MDRD) Non-Af BUN/Creatinine Ratio Glucose Lactic Acid 2.5 H Calcium Phosphorus Magnesium Total Bilirubin AST ALT Alkaline Phosphatase Total Protein Albumin Globulin Albumin/Globulin Ratio TSH Free T4 Urine Opiates Screen NEGATIVE Urine Methadone Screen NEGATIVE Ur Barbiturates Screen NEGATIVE Ur Phencyclidine Scrn NEGATIVE Ur Amphetamines Screen NEGATIVE U Methamphetamin-MDMA NEGATIVE U Benzodiazepines Scrn NEGATIVE Urine Cocaine Screen NEGATIVE U Cannabinoids Screen NEGATIVE Ur Drug Screen Comment Hepatitis A IgM Ab Hepatitis A Ab Total Hep Bs Antigen Hep B Core Total Ab Hep B Core IgM Ab 01/22/19 01/22/19 01/22/19 04:45 04:45 05:35 WBC Corrected WBC RBC Hgb Hct MCV MCH MCHC RDW RDW Differential Plt Count MPV Immature Gran % (Auto) Neut % (Auto) Lymph % (Auto) [place] % (Auto) Eos % (Auto) Baso % (Auto) Absolute Neuts (auto) Absolute Lymphs (auto) Total Counted Neutrophils % (Manual) Band Neutrophils % Lymphocytes % (Manual) Monocytes % (Manual) Eosinophils % (Manual) Basophils % (Manual) Metamyelocytes % Myelocytes % Promyelocytes % Blast Cells % Plasma Cell % (Manual) Other Cells % Nucleated RBCs/100 WBC Differential Comment Diff Path Review Hypersegmented Neuts Atypical Lymphocytes Reactive Lymphocytes Smudge Cells Toxic Granulation Dohle Bodies Travis Rods Platelet Estimate Plt Morphology Comment RBC Morphology Polychromasia Hypochromasia Poikilocytosis Basophilic Stippling Anisocytosis Microcytosis Macrocytosis Spherocytes Sickle Cells Target Cells Tear Drop Cells Ovalocytes Stomatocytes [place] Bodies Bry Cells Bite Cells Acanthocytes (Spur) Rouleaux Schistocytes Specimen Type Sample Site pH Bicarbonate Actual POC Total CO2 Base Excess O2 Saturation O2 % ABG pCO2 ABG pO2 Rommel Test Respiration Rate O2 Delivery Device Vent Mode Tidal Volume POC PEEP Blood Gas Notified Whom Blood Gas Notified Time Sodium Cancelled 141 Potassium Cancelled 6.8 H* Chloride Cancelled 110 H Carbon Dioxide Cancelled 24.0 Anion Gap Cancelled 7 BUN Cancelled 23 H Creatinine Cancelled 1.86 H Estim Creat Clear Calc Cancelled 71.85 Est GFR (MDRD) Af Amer Cancelled 54 L Est GFR (MDRD) Non-Af Cancelled 45 L BUN/Creatinine Ratio Cancelled 12.4 Glucose Cancelled 130 H Lactic Acid Cancelled Calcium Cancelled 7.7 L Phosphorus Magnesium Total Bilirubin Cancelled 0.40 AST Cancelled 31 ALT Cancelled 71 H Alkaline Phosphatase Cancelled 67 Total Protein Cancelled 6.8 Albumin Cancelled 3.2 Globulin Cancelled 3.6 Albumin/Globulin Ratio Cancelled 0.9 TSH Free T4 Urine Opiates Screen Urine Methadone Screen Ur Barbiturates Screen Ur Phencyclidine Scrn Ur Amphetamines Screen U Methamphetamin-MDMA U Benzodiazepines Scrn Urine Cocaine Screen U Cannabinoids Screen Ur Drug Screen Comment Hepatitis A IgM Ab Hepatitis A Ab Total Hep Bs Antigen Hep B Core Total Ab Hep B Core IgM Ab 01/22/19 01/22/19 05:35 05:35 WBC 33.2 H* Corrected WBC RBC 4.86 Hgb 14.3 Hct 42.1 MCV 86.6 MCH 29.4 MCHC 34.0 RDW 12.8 RDW Differential 39.6 Plt Count 274 MPV 11.3 Immature Gran % (Auto) 0.300 Neut % (Auto) 91.5 H Lymph % (Auto) 2.5 L [place] % (Auto) 5.6 Eos % (Auto) 0.0 Baso % (Auto) 0.1 Absolute Neuts (auto) 30.4 H Absolute Lymphs (auto) 0.82 L Total Counted Not Reportable Neutrophils % (Manual) Band Neutrophils % Lymphocytes % (Manual) Monocytes % (Manual) Eosinophils % (Manual) Basophils % (Manual) Metamyelocytes % Myelocytes % Promyelocytes % Blast Cells % Plasma Cell % (Manual) Other Cells % Nucleated RBCs/100 WBC Differential Comment SCAN Diff Path Review May foll Hypersegmented Neuts Atypical Lymphocytes Reactive Lymphocytes Smudge Cells Toxic Granulation Dohle Bodies Travis Rods Platelet Estimate Plt Morphology Comment RBC Morphology Polychromasia Hypochromasia Poikilocytosis Basophilic Stippling Anisocytosis Microcytosis Macrocytosis Spherocytes Sickle Cells Target Cells Tear Drop Cells Ovalocytes Stomatocytes [place] Bodies Bry Cells Bite Cells Acanthocytes (Spur) Rouleaux Schistocytes Specimen Type Sample Site pH Bicarbonate Actual POC Total CO2 Base Excess O2 Saturation O2 % ABG pCO2 ABG pO2 Rommel Test Respiration Rate O2 Delivery Device Vent Mode Tidal Volume POC PEEP Blood Gas Notified Whom Blood Gas Notified Time Sodium Potassium Chloride Carbon Dioxide Anion Gap BUN Creatinine Estim Creat Clear Calc Est GFR (MDRD) Af Amer Est GFR (MDRD) Non-Af BUN/Creatinine Ratio Glucose Lactic Acid 2.3 H Calcium Phosphorus Magnesium Total Bilirubin AST ALT Alkaline Phosphatase Total Protein Albumin Globulin Albumin/Globulin Ratio TSH Free T4 Urine Opiates Screen Urine Methadone Screen Ur Barbiturates Screen Ur Phencyclidine Scrn Ur Amphetamines Screen U Methamphetamin-MDMA U Benzodiazepines Scrn Urine Cocaine Screen U Cannabinoids Screen Ur Drug Screen Comment Hepatitis A IgM Ab Hepatitis A Ab Total Hep Bs Antigen Hep B Core Total Ab Hep B Core IgM Ab Clinical Impression(s) from Imaging Studies Soft Tissue Neck CT 01/21/19 18:30 IMPRESSION: Thickened epiglottis with gas which could be infectious or traumatic in etiology. Mild prominence of the lingual tonsil. Mild bilateral cervical adenopathy. Electronically Signed: Arnold Valentin DO at 19:50 EDT Tel [phone], Service support , ADDENDUM: 01/21/192002 IMPRESSION: Thickened epiglottis with gas which could be infectious or traumatic in etiology. Mild prominence of the lingual tonsil. Mild bilateral cervical adenopathy. N.B. : The above information has been verbally conveyed by Arnold Valentin DO to Kenneth Early MD, on 01/21/2019 19:56:15 (ET). Electronically Signed: Arnold Valentin DO at 19:50 EDT Tel [phone], Service support , Assessment/Plan Active and Suspected Problems Epiglottitis (Acute) Severe sepsis (Acute) RECOMMENDATIONS: 1. Continue supplemental IV fluid hydration for now. 2. Recheck BMP, given hyperkalemia noted previously. 3. Continue fentanyl for pain and Precedex for anxiety. 4. Continue antimicrobials. 5. Transition patient from assist control to spontaneous mode mechanical ventilation, as tolerated. IMPRESSIONS: 1. Acute respiratory failure secondary to epiglottitis status post emergent tracheostomy The patient is doing well this morning. He remains on antibiotics and suppleme ntal IV fluids. These will be continued without change. Attempts will be made to transition the patient from assist control to spontaneous mode of mechanical ventilation. The patient will be continued on fentanyl for his pain and Precedex for agitation/anxiety. We will ask speech therapy to evaluate the patient and perform swallow evaluation. ENT is following. 2. Severe sepsis secondary to epiglottitis Continue antibiotics and supplemental IV fluids as ordered. Blood cultures are pending. 3. Acute kidney injury/hyperkalemia Recommend rechecking BMP this morning. If potassium is still elevated, will initiate medical management. 4. Obesity/history of polysubstance abuse/hypertension/GERD Complicates care, management, recovery and prognosis. TIME: 38 minutes of critical care time, independent of procedures, was spent addressing the patient's acute respiratory failure, severe sepsis secondary to epiglottitis, acute kidney injury, hyperkalemia, review of all data and collaboration with the care team. ([id number]) Code Visit [id number]: [id number] Critical care first hour
--- NOTE | 2019-01-22 09:12 | PCM.PN.SRG ---
Patient Problems: Active and Suspected Problems Epiglottitis (Acute) Severe sepsis (Acute) Subjective: no complaints - Physical Exam General: - - sedated on the vent Neck: - - #8DCT in place Vital Signs Temp Pulse Resp BP Pulse Ox 97.8 F 70 16 91/44 L 99 01/22/19 04:00 01/22/19 08:00 01/22/19 06:40 01/22/19 06:00 01/22/19 06:40 Oxygen Delivery Method Mechanical Ventilator Weight: 125.4 kg Body Mass Index (BMI) 32.7 Intake and Output for Last 24 Hours 01/20/19 01/21/19 01/22/19 23:59 23:59 23:59 Intake Total 1984.9 / 1984.9 Output Total 600 / 600 Balance 1384.9 / 1384.9 Laboratory Tests Past 24 Hrs 01/21/19 01/21/19 01/21/19 20:19 20:19 20:19 WBC 32.9 H* Corrected WBC RBC 5.63 Hgb 16.5 Hct 48.2 MCV 85.6 MCH 29.3 MCHC 34.2 RDW 12.6 RDW Differential 39.4 Plt Count 215 MPV 11.2 Immature Gran % (Auto) 0.300 Neut % (Auto) 93.5 H Lymph % (Auto) 3.9 L [place] % (Auto) 2.1 Eos % (Auto) 0.0 Baso % (Auto) 0.2 Absolute Neuts (auto) 30.8 H Absolute Lymphs (auto) 1.27 Total Counted Not Reportable Neutrophils % (Manual) Band Neutrophils % Lymphocytes % (Manual) Monocytes % (Manual) Eosinophils % (Manual) Basophils % (Manual) Metamyelocytes % Myelocytes % Promyelocytes % Blast Cells % Plasma Cell % (Manual) Other Cells % Nucleated RBCs/100 WBC Differential Comment SCANNED Diff Path Review May foll Hypersegmented Neuts Atypical Lymphocytes Reactive Lymphocytes Smudge Cells Toxic Granulation Dohle Bodies Travis Rods Platelet Estimate Plt Morphology Comment RBC Morphology Polychromasia Hypochromasia Poikilocytosis Basophilic Stippling Anisocytosis Microcytosis Macrocytosis Spherocytes Sickle Cells Target Cells Tear Drop Cells Ovalocytes Stomatocytes [place] Bodies Chicken Cells Bite Cells Acanthocytes (Spur) Rouleaux Schistocytes Specimen Type Sample Site pH Bicarbonate Actual POC Total CO2 Base Excess O2 Saturation O2 % ABG pCO2 ABG pO2 Rommel Test Respiration Rate O2 Delivery Device Vent Mode Tidal Volume POC PEEP Blood Gas Notified Whom Blood Gas Notified Time Sodium 138 Potassium 4.7 Chloride 107 Carbon Dioxide 27.0 Anion Gap 4 L BUN 15 Creatinine 1.08 Estim Creat Clear Calc 98.19 Est GFR (MDRD) Af Amer 102 Est GFR (MDRD) Non-Af 84 BUN/Creatinine Ratio 13.9 Glucose 117 H Lactic Acid 2.0 Calcium 9.4 Phosphorus Magnesium Total Bilirubin 0.40 AST 40 H ALT 92 H Alkaline Phosphatase 89 Total Protein 8.2 Albumin 4.3 Globulin 3.9 Albumin/Globulin Ratio 1.1 TSH Free T4 Urine Opiates Screen Urine Methadone Screen Ur Barbiturates Screen Ur Phencyclidine Scrn Ur Amphetamines Screen U Methamphetamin-MDMA U Benzodiazepines Scrn Urine Cocaine Screen U Cannabinoids Screen Ur Drug Screen Comment Hepatitis A IgM Ab Hepatitis A Ab Total Hep Bs Antigen Hep B Core Total Ab Hep B Core IgM Ab 01/21/19 01/21/19 01/21/19 20:19 20:19 23:54 WBC Corrected WBC RBC Hgb Hct MCV MCH MCHC RDW RDW Differential Plt Count MPV Immature Gran % (Auto) Neut % (Auto) Lymph % (Auto) [place] % (Auto) Eos % (Auto) Baso % (Auto) Absolute Neuts (auto) Absolute Lymphs (auto) Total Counted Neutrophils % (Manual) Band Neutrophils % Lymphocytes % (Manual) Monocytes % (Manual) Eosinophils % (Manual) Basophils % (Manual) Metamyelocytes % Myelocytes % Promyelocytes % Blast Cells % Plasma Cell % (Manual) Other Cells % Nucleated RBCs/100 WBC Differential Comment Diff Path Review Hypersegmented Neuts Atypical Lymphocytes Reactive Lymphocytes Smudge Cells Toxic Granulation Dohle Bodies Travis Rods Platelet Estimate Plt Morphology Comment RBC Morphology Polychromasia Hypochromasia Poikilocytosis Basophilic Stippling Anisocytosis Microcytosis Macrocytosis Spherocytes Sickle Cells Target Cells Tear Drop Cells Ovalocytes Stomatocytes [place] Bodies Chicken Cells Bite Cells Acanthocytes (Spur) Rouleaux Schistocytes Specimen Type ART Sample Site L Radial pH 7.30 L Bicarbonate Actual 26.5 H POC Total CO2 28 Base Excess 0 O2 Saturation 99 O2 % 50 ABG pCO2 53.8 H ABG pO2 141 H Rommel Test POS Respiration Rate 16 O2 Delivery Device Vent Vent Mode A-C Tidal Volume 550 POC PEEP 5 Blood Gas Notified Whom [facility] Blood Gas Notified Time 2350 Sodium Potassium Chloride Carbon Dioxide Anion Gap BUN Creatinine Estim Creat Clear Calc Est GFR (MDRD) Af Amer Est GFR (MDRD) Non-Af BUN/Creatinine Ratio Glucose Lactic Acid Calcium Phosphorus 1.8 L Magnesium 2.0 Total Bilirubin AST ALT Alkaline Phosphatase Total Protein Albumin Globulin Albumin/Globulin Ratio TSH 0.23 L Free T4 0.94 Urine Opiates Screen Urine Methadone Screen Ur Barbiturates Screen Ur Phencyclidine Scrn Ur Amphetamines Screen U Methamphetamin-MDMA U Benzodiazepines Scrn Urine Cocaine Screen U Cannabinoids Screen Ur Drug Screen Comment Hepatitis A IgM Ab Pending Hepatitis A Ab Total Pending Hep Bs Antigen Pending Hep B Core Total Ab Pending Hep B Core IgM Ab Pending 01/22/19 01/22/19 01/22/19 00:20 00:48 04:45 WBC Cancelled Corrected WBC Cancelled RBC Cancelled Hgb Cancelled Hct Cancelled MCV Cancelled MCH Cancelled MCHC Cancelled RDW Cancelled RDW Differential Cancelled Plt Count Cancelled MPV Cancelled Immature Gran % (Auto) Cancelled Neut % (Auto) Cancelled Lymph % (Auto) Cancelled [place] % (Auto) Cancelled Eos % (Auto) Cancelled Baso % (Auto) Cancelled Absolute Neuts (auto) Cancelled Absolute Lymphs (auto) Cancelled Total Counted Cancelled Neutrophils % (Manual) Cancelled Band Neutrophils % Cancelled Lymphocytes % (Manual) Cancelled Monocytes % (Manual) Cancelled Eosinophils % (Manual) Cancelled Basophils % (Manual) Cancelled Metamyelocytes % Cancelled Myelocytes % Cancelled Promyelocytes % Cancelled Blast Cells % Cancelled Plasma Cell % (Manual) Cancelled Other Cells % Cancelled Nucleated RBCs/100 WBC Cancelled Differential Comment Cancelled Diff Path Review Cancelled Hypersegmented Neuts Cancelled Atypical Lymphocytes Cancelled Reactive Lymphocytes Cancelled Smudge Cells Cancelled Toxic Granulation Cancelled Dohle Bodies Cancelled Travis Rods Cancelled Platelet Estimate Cancelled Plt Morphology Comment Cancelled RBC Morphology Cancelled Polychromasia Cancelled Hypochromasia Cancelled Poikilocytosis Cancelled Basophilic Stippling Cancelled Anisocytosis Cancelled Microcytosis Cancelled Macrocytosis Cancelled Spherocytes Cancelled Sickle Cells Cancelled Target Cells Cancelled Tear Drop Cells Cancelled Ovalocytes Cancelled Stomatocytes Cancelled [place] Bodies Cancelled Chicken Cells Cancelled Bite Cells Cancelled Acanthocytes (Spur) Cancelled Rouleaux Cancelled Schistocytes Cancelled Specimen Type Sample Site pH Bicarbonate Actual POC Total CO2 Base Excess O2 Saturation O2 % ABG pCO2 ABG pO2 Rommel Test Respiration Rate O2 Delivery Device Vent Mode Tidal Volume POC PEEP Blood Gas Notified Whom Blood Gas Notified Time Sodium Potassium Chloride Carbon Dioxide Anion Gap BUN Creatinine Estim Creat Clear Calc Est GFR (MDRD) Af Amer Est GFR (MDRD) Non-Af BUN/Creatinine Ratio Glucose Lactic Acid 2.5 H Calcium Phosphorus Magnesium Total Bilirubin AST ALT Alkaline Phosphatase Total Protein Albumin Globulin Albumin/Globulin Ratio TSH Free T4 Urine Opiates Screen NEGATIVE Urine Methadone Screen NEGATIVE Ur Barbiturates Screen NEGATIVE Ur Phencyclidine Scrn NEGATIVE Ur Amphetamines Screen NEGATIVE U Methamphetamin-MDMA NEGATIVE U Benzodiazepines Scrn NEGATIVE Urine Cocaine Screen NEGATIVE U Cannabinoids Screen NEGATIVE Ur Drug Screen Comment Hepatitis A IgM Ab Hepatitis A Ab Total Hep Bs Antigen Hep B Core Total Ab Hep B Core IgM Ab 01/22/19 01/22/19 01/22/19 04:45 04:45 05:35 WBC Corrected WBC RBC Hgb Hct MCV MCH MCHC RDW RDW Differential Plt Count MPV Immature Gran % (Auto) Neut % (Auto) Lymph % (Auto) [place] % (Auto) Eos % (Auto) Baso % (Auto) Absolute Neuts (auto) Absolute Lymphs (auto) Total Counted Neutrophils % (Manual) Band Neutrophils % Lymphocytes % (Manual) Monocytes % (Manual) Eosinophils % (Manual) Basophils % (Manual) Metamyelocytes % Myelocytes % Promyelocytes % Blast Cells % Plasma Cell % (Manual) Other Cells % Nucleated RBCs/100 WBC Differential Comment Diff Path Review Hypersegmented Neuts Atypical Lymphocytes Reactive Lymphocytes Smudge Cells Toxic Granulation Dohle Bodies Travis Rods Platelet Estimate Plt Morphology Comment RBC Morphology Polychromasia Hypochromasia Poikilocytosis Basophilic Stippling Anisocytosis Microcytosis Macrocytosis Spherocytes Sickle Cells Target Cells Tear Drop Cells Ovalocytes Stomatocytes [place] Bodies Chicken Cells Bite Cells Acanthocytes (Spur) Rouleaux Schistocytes Specimen Type Sample Site pH Bicarbonate Actual POC Total CO2 Base Excess O2 Saturation O2 % ABG pCO2 ABG pO2 Rommel Test Respiration Rate O2 Delivery Device Vent Mode Tidal Volume POC PEEP Blood Gas Notified Whom Blood Gas Notified Time Sodium Cancelled 141 Potassium Cancelled 6.8 H* Chloride Cancelled 110 H Carbon Dioxide Cancelled 24.0 Anion Gap Cancelled 7 BUN Cancelled 23 H Creatinine Cancelled 1.86 H Estim Creat Clear Calc Cancelled 71.85 Est GFR (MDRD) Af Amer Cancelled 54 L Est GFR (MDRD) Non-Af Cancelled 45 L BUN/Creatinine Ratio Cancelled 12.4 Glucose Cancelled 130 H Lactic Acid Cancelled Calcium Cancelled 7.7 L Phosphorus Magnesium Total Bilirubin Cancelled 0.40 AST Cancelled 31 ALT Cancelled 71 H Alkaline Phosphatase Cancelled 67 Total Protein Cancelled 6.8 Albumin Cancelled 3.2 Globulin Cancelled 3.6 Albumin/Globulin Ratio Cancelled 0.9 TSH Free T4 Urine Opiates Screen Urine Methadone Screen Ur Barbiturates Screen Ur Phencyclidine Scrn Ur Amphetamines Screen U Methamphetamin-MDMA U Benzodiazepines Scrn Urine Cocaine Screen U Cannabinoids Screen Ur Drug Screen Comment Hepatitis A IgM Ab Hepatitis A Ab Total Hep Bs Antigen Hep B Core Total Ab Hep B Core IgM Ab 01/22/19 01/22/19 05:35 05:35 WBC 33.2 H* Corrected WBC RBC 4.86 Hgb 14.3 Hct 42.1 MCV 86.6 MCH 29.4 MCHC 34.0 RDW 12.8 RDW Differential 39.6 Plt Count 274 MPV 11.3 Immature Gran % (Auto) 0.300 Neut % (Auto) 91.5 H Lymph % (Auto) 2.5 L [place] % (Auto) 5.6 Eos % (Auto) 0.0 Baso % (Auto) 0.1 Absolute Neuts (auto) 30.4 H Absolute Lymphs (auto) 0.82 L Total Counted Not Reportable Neutrophils % (Manual) Band Neutrophils % Lymphocytes % (Manual) Monocytes % (Manual) Eosinophils % (Manual) Basophils % (Manual) Metamyelocytes % Myelocytes % Promyelocytes % Blast Cells % Plasma Cell % (Manual) Other Cells % Nucleated RBCs/100 WBC Differential Comment SCAN Diff Path Review May foll Hypersegmented Neuts Atypical Lymphocytes Reactive Lymphocytes Smudge Cells Toxic Granulation Dohle Bodies Travis Rods Platelet Estimate Plt Morphology Comment RBC Morphology Polychromasia Hypochromasia Poikilocytosis Basophilic Stippling Anisocytosis Microcytosis Macrocytosis Spherocytes Sickle Cells Target Cells Tear Drop Cells Ovalocytes Stomatocytes [place] Bodies Bry Cells Bite Cells Acanthocytes (Spur) Rouleaux Schistocytes Specimen Type Sample Site pH Bicarbonate Actual POC Total CO2 Base Excess O2 Saturation O2 % ABG pCO2 ABG pO2 Rommel Test Respiration Rate O2 Delivery Device Vent Mode Tidal Volume POC PEEP Blood Gas Notified Whom Blood Gas Notified Time Sodium Potassium Chloride Carbon Dioxide Anion Gap BUN Creatinine Estim Creat Clear Calc Est GFR (MDRD) Af Amer Est GFR (MDRD) Non-Af BUN/Creatinine Ratio Glucose Lactic Acid 2.3 H Calcium Phosphorus Magnesium Total Bilirubin AST ALT Alkaline Phosphatase Total Protein Albumin Globulin Albumin/Globulin Ratio TSH Free T4 Urine Opiates Screen Urine Methadone Screen Ur Barbiturates Screen Ur Phencyclidine Scrn Ur Amphetamines Screen U Methamphetamin-MDMA U Benzodiazepines Scrn Urine Cocaine Screen U Cannabinoids Screen Ur Drug Screen Comment Hepatitis A IgM Ab Hepatitis A Ab Total Hep Bs Antigen Hep B Core Total Ab Hep B Core IgM Ab Medical Necessity - Tobacco Use Smoking Status: Current some day smoker Tobacco Use: Cigarettes Assessment/Plan All Active Problems Epiglottitis (Acute) Severe sepsis (Acute) 33 year old with supraglottitis s/p emergent trach -routine trach care -IV antibiotics, ok to be off vent if ok with ICU team -will scope larynx at bedside friday, make further plans from there
--- NOTE | 2019-01-22 09:35 | PCM.PN.HOSP ---
Patient Problems: Active and Suspected Problems Epiglottitis (Acute) Severe sepsis (Acute) Subjective: Patient seen and examined. He was admitted for acute hypoxic respiratory failure due to acute epiglottitis with airway obstruction and severe sepsis due to acute epiglottitis.. Attempts at intubation by ENT and anesthesia was unsuccessful and he had an LMA placed and was sent to the ED for emergent tracheostomy. He was admitted to the ICU afterwards. He is on IV Zosyn. Patient remains intubated with a tracheostomy. He was alert and able to shake his head or nodding response to questions. He admitted to pain at the site of the tracheostomy. He denied any fever chills, palpitations or dizziness, abdominal pain, diarrhea vomiting. Patient was in restraints and just said that he wanted the restraints removed. Labs and vitals reviewed. Vitals/I&O's: Vital Signs Temp Pulse Resp BP Pulse Ox 97.8 F 70 16 91/44 L 99 01/22/19 04:00 01/22/19 08:00 01/22/19 06:40 01/22/19 06:00 01/22/19 06:40 Oxygen Delivery Method Mechanical Ventilator Weight: 276 lb 7.355 oz Body Mass Index (BMI) 32.7 Intake and Output for Last 24 Hours 01/20/19 01/21/19 01/22/19 23:59 23:59 23:59 Intake Total 1984.9 / 1984.9 Output Total 600 / 600 Balance 1384.9 / 1384.9 General: Alert, Cooperative, - - patient intubated HEENT: - - intubated via tracheostomy Neck: Supple, No JVD, Negative Carotid Bruits Lungs: Clear to auscultation, Normal air movement, No rhonchi, No wheeze, No rales Cardiovascular: Regular rate, Regular Rhythm, Normal S1, Normal S2, No murmurs Abdomen: Bowel Sounds Present, Soft, Non Tender, Non-Distended, No Hepato-splenomegaly Extremities: No clubbing, No cyanosis, No edema, Capillary Refill Less than 3 Seconds Skin: No rashes, No breakdown Musculoskeletal: No Tenderness to Palpation of Joints or Extremities Lymphatic: No Cervical, Supraclavicular, or Inguinal Adenopathy Neurological: Cranial nerves II-XII grossly intact, Motor Exam 5/5 strength throughout, - - intubated, sedated, RASS socre is 0 Psych/Mental Status: Normal Affect, - - in UE restraints Laboratory Results 01/21/19 20:19: WBC 32.9 H*, RBC 5.63, Hgb 16.5, Hct 48.2, MCV 85.6, MCH 29.3, MCHC 34.2, RDW 12.6, RDW Differential 39.4, Plt Count 215, MPV 11.2, Immature Gran % (Auto) 0.300, Neut % (Auto) 93.5 H, Lymph % (Auto) 3.9 L, Wagoner % (Auto) 2.1, Eos % (Auto) 0.0, Baso % (Auto) 0.2, Absolute Neuts (auto) 30.8 H, Absolute Lymphs (auto) 1.27, Total Counted Not Reportable, Differential Comment SCANNED, Diff Path Review March01/21/19 20:19: Sodium 138, Potassium 4.7, Chloride 107, Carbon Dioxide 27.0, Anion Gap 4 L, BUN 15, Creatinine 1.08, Estim Creat Clear Calc 98.19, Est GFR (MDRD) Af Amer 102, Est GFR (MDRD) Non-Af 84, BUN/Creatinine Ratio 13.9, Glucose 117 H, Calcium 9.4, Total Bilirubin 0.40, AST 40 H, ALT 92 H, Alkaline Phosphatase 89, Total Protein 8.2, Albumin 4.3, Globulin 3.9, Albumin/Globulin Ratio 1.1 01/21/19 20:19: Lactic Acid 2.0 01/21/19 20:19: Hepatitis A IgM Ab Pending, Hepatitis A Ab Total Pending, Hep Bs Antigen Pending, Hep B Core Total Ab Pending, Hep B Core IgM Ab Pending 01/21/19 20:19: Phosphorus 1.8 L, Magnesium 2.0, TSH 0.23 L, Free T4 0.94 01/21/19 23:54: Specimen Type ART, Sample Site L Radial, pH 7.30 L, Bicarbonate Actual 26.5 H, POC Total CO2 28, Base Excess 0, O2 Saturation 99, O2 % 50, ABG pCO2 53.8 H, ABG pO2 141 H, Rommel Test POS, Respiration Rate 16, O2 Delivery Device Vent, Vent Mode A-C, Tidal Volume 550, POC PEEP 5, Blood Gas Notified Whom RADHA GA, Blood Gas Notified Time 2350 03/15/19 00:20: Urine Opiates Screen NEGATIVE, Urine Methadone Screen NEGATIVE, Ur Barbiturates Screen NEGATIVE, Ur Phencyclidine Scrn NEGATIVE, Ur Amphetamines Screen NEGATIVE, U Methamphetamin-MDMA NEGATIVE, U Benzodiazepines Scrn NEGATIVE, Urine Cocaine Screen NEGATIVE, U Cannabinoids Screen NEGATIVE, Ur Drug Screen Comment 01/22/19 00:48: Lactic Acid 2.5 H 01/22/19 04:45: WBC Cancelled, Corrected WBC Cancelled, RBC Cancelled, Hgb Cancelled, Hct Cancelled, MCV Cancelled, MCH Cancelled, MCHC Cancelled, RDW Cancelled, RDW Differential Cancelled, Plt Count Cancelled, MPV Cancelled, Immature Gran % (Auto) Cancelled, Neut % (Auto) Cancelled, Lymph % (Auto) Cancelled, Wagoner % (Auto) Cancelled, Eos % (Auto) Cancelled, Baso % (Auto) Cancelled, Absolute Neuts (auto) Cancelled, Absolute Lymphs (auto) Cancelled, Total Counted Cancelled, Neutrophils % (Manual) Cancelled, Band Neutrophils % Cancelled, Lymphocytes % (Manual) Cancelled, Monocytes % (Manual) Cancelled, Eosinophils % (Manual) Cancelled, Basophils % (Manual) Cancelled, Metamyelocytes % Cancelled, Myelocytes % Cancelled, Promyelocytes % Cancelled, Blast Cells % Cancelled, Plasma Cell % (Manual) Cancelled, Other Cells % Cancelled, Nucleated RBCs/100 WBC Cancelled, Differential Comment Cancelled, Diff Path Review Cancelled, Hypersegmented Neuts Cancelled, Atypical Lymphocytes Cancelled, Reactive Lymphocytes Cancelled, Smudge Cells Cancelled, Toxic Granulation Cancelled, Dohle Bodies Cancelled, Travis Rods Cancelled, Platelet Estimate Cancelled, Plt Morphology Comment Cancelled, RBC Morphology Cancelled, Polychromasia Cancelled, Hypochromasia Cancelled, Poikilocytosis Cancelled, Basophilic Stippling Cancelled, Anisocytosis Cancelled, Microcytosis Cancelled, Macrocytosis Cancelled, Spherocytes Cancelled, Sickle Cells Cancelled, Target Cells Cancelled, Tear Drop Cells Cancelled, Ovalocytes Cancelled, Stomatocytes Cancelled, [place] Bodies Cancelled, Riparius Cells Cancelled, Bite Cells Cancelled, Acanthocytes (Spur) Cancelled, Rouleaux Cancelled, Schistocytes Cancelled 01/22/19 04:45: Sodium Cancelled, Potassium Cancelled, Chloride Cancelled, Carbon Dioxide Cancelled, Anion Gap Cancelled, BUN Cancelled, Creatinine Cancelled, Estim Creat Clear Calc Cancelled, Est GFR (MDRD) Af Amer Cancelled, Est GFR (MDRD) Non-Af Cancelled, BUN/Creatinine Ratio Cancelled, Glucose Cancelled, Calcium Cancelled, Total Bilirubin Cancelled, AST Cancelled, ALT Cancelled, Alkaline Phosphatase Cancelled, Total Protein Cancelled, Albumin Cancelled, Globulin Cancelled, Albumin/Globulin Ratio Cancelled 01/22/19 04:45: Lactic Acid Cancelled 01/22/19 05:35: Sodium 141, Potassium 6.8 H*, Chloride 110 H, Carbon Dioxide 24.0, Anion Gap 7, BUN 23 H, Creatinine 1.86 H, Estim Creat Clear Calc 71.85, Est GFR (MDRD) Af Amer 54 L, Est GFR (MDRD) Non-Af 45 L, BUN/Creatinine Ratio 12.4, Glucose 130 H, Calcium 7.7 L, Total Bilirubin 0.40, AST 31, ALT 71 H, Alkaline Phosphatase 67, Total Protein 6.8, Albumin 3.2, Globulin 3.6, Albumin/Globulin Ratio 0.9 01/22/19 05:35: WBC 33.2 H*, RBC 4.86, Hgb 14.3, Hct 42.1, MCV 86.6, MCH 29.4, MCHC 34.0, RDW 12.8, RDW Differential 39.6, Plt Count 274, MPV 11.3, Immature Gran % (Auto) 0.300, Neut % (Auto) 91.5 H, Lymph % (Auto) 2.5 L, Wagoner % (Auto) 5.6, Eos % (Auto) 0.0, Baso % (Auto) 0.1, Absolute Neuts (auto) 30.4 H, Absolute Lymphs (auto) 0.82 L, Total Counted Not Reportable, Differential Comment SCAN, Diff Path Review March01/22/19 05:35: Lactic Acid 2.3 H Diagnostic Data Soft Tissue Neck CT 01/21/19 18:30 IMPRESSION: Thickened epiglottis with gas which could be infectious or traumatic in etiology. Mild prominence of the lingual tonsil. Mild bilateral cervical adenopathy. Electronically Signed: Arnold Valentin DO at 19:50 EDT Tel [phone], Service support , ADDENDUM: 01/21/192002 IMPRESSION: Thickened epiglottis with gas which could be infectious or traumatic in etiology. Mild prominence of the lingual tonsil. Mild bilateral cervical adenopathy. N.B. : The above information has been verbally conveyed by Arnold Valentin DO to Kenneth Early MD, on 01/21/2019 19:56:15 (ET). Electronically Signed: Arnold Valentin DO at 19:50 EDT Tel [phone], Service support , Current Medications Acetaminophen (Tylenol) 650 mg PO Q6H PRN PRN PRN Reason: Non-cardiac pain (mod-severe) Albuterol Sulfate (Ventolin Aerosols) 2.5 mg INHALATION Q2H PRN PRN PRN Reason: dyspnea, wheezing Chlorhexidine Gluconate () 15 ml PO BID [facility] Last Admin: 01/21/19 23:17 Dose: 15 ml Enoxaparin Sodium (Lovenox) 40 mg SC DAILY@1000 [facility] Hydralazine HCl (Apresoline Iv) 10 mg IV Q4H PRN PRN PRN Reason: SBP > 160 Hydromorphone HCl (Dilaudid Inj) 1 mg IV Q2H PRN PRN PRN Reason: SEVERE PAIN (6-10/10) Sodium Chloride () 1,000 mls @ 125 mls/hr IV .Q8H [facility] Last Admin: 01/22/19 06:57 Dose: 125 mls/hr Ceftriaxone Sodium 2 gm/ (Sodium Chloride) 50 mls @ 100 mls/hr IV Q12 [facility] Last Admin: 01/21/19 23:20 Dose: 100 mls/hr Famotidine 20 mg/ Sodium (Chloride) 10 mls @ 300 mls/hr IV Q12 [facility] Last Admin: 01/21/19 23:20 Dose: 300 mls/hr Fentanyl () 100 mls @ 2.5 mls/hr IV .Q40H [facility] Last Admin: 01/22/19 06:12 Dose: 2.5 mls/hr Propofol (Diprivan) 1,000 mg in 100 mls @ 6.804 mls/hr CONT INF .Q12H [facility] Last Admin: 01/22/19 05:44 Dose: 6.804 mls/hr Vancomycin IV Pharmacy to Dose (1 ea/ Sodium Chloride) 500 mls @ 250 mls/hr IV X1 PRN; Protocol PRN Reason: Rx to Dose Vancomycin HCl 1,500 mg/ (Sodium Chloride) 530 mls @ 250 mls/hr IV Q12H [facility] Metoprolol Tartrate (Lopressor (Beta Evangelist)) 5 mg IV Q6H PRN PRN PRN Reason: SBP > 160, hold for HR < 60 Ondansetron HCl (Zofran) 4 mg IV Q8H PRN PRN PRN Reason: NAUSEA/VOMITING Sodium Chloride () 5 - 15 ml IV UD PRN PRN Reason: SALINE FLUSH Last Admin: 01/22/19 00:15 Dose: 15 ml Medical Necessity - Tobacco Use Smoking Status: Current some day smoker Tobacco Use: Cigarettes Assessment/Plan All Active Problems Epiglottitis (Acute) Severe sepsis (Acute) 1. Severe sepsis due to acute epiglottitis patient intubated via emergent tracheostomy as ENT and anesthesia were unable to intubate him wbc is 33.2 today, was 32.9 yesterday on IV unasyn blood cultures pending 2. Acute hypoxic respiratory failure due to severe epiglottitis with airway obstruction had emergent tracheostomy CT soft tissue head/neck showed thickened epiglottitis with gas and multiple prominence of the lingual tonsil as well as mild bilateral cervical adenopathy. currently intubated and sedated. branch lending officer on board 3. Hyperkalemia: K is 6.8. Per branch lending officer, plan is to repeat K level and see; patient also received K phosphate o/a of hypophosphatemia. Management will depend on repeat K. 4. SHARON: Cr up to 1.86 today, from 1.08 on admission. Likely prerenal. Will hydrate and monitor. If kidney function worsens, consider nephrology consult. 5. SUbclinical hyperthyroidism: TSH was 0.23, free T4 was 0.94. However, may not be very accurate in setting of acute illness. Will repeat after acute phase is over. 6. Lactic acidosis: Lactic acid is up to 2.3 today. Likely due to hypotension. We will hydrate and monitor 7. Hypertension: was initially hypertensive, with BP up to 250s sytolic. This was likely due to patient's impending respiratory failure. Subsequently developed hypotension blood pressure going down to the 90s systolic. BP control now improved. Had been off his meds for a year according to family. on IV hydralazine prn 8.GERD: on famotidine. DVT prophylaxis: Lovenox-renal dosing 4:39pm Hospitalist was called by nurse because patient wanted to be transferred as he felt that he was not receiving good medical care here. Hospitalist came up to see patient who wrote on a piece of paper that he wanted to be out of the hospital because he did not think we were helping him. Hospitalist explained to patient that he could not take the tracheostomy out as he was threatening to do because he needed it and to be able to breathe. Hospitalist counseled patient that he would if he took out the tracheostomy. Patient explained that he felt he was drowning and could not breathe. Hospitalist explained to patient that on account of his airway edema, he would not be able to taking deep breaths as he was hoping to. Patient insisted on being transferred. Hospitalist contacted [facility] which was patient's first preference and [facility]. Both facilities at the ICU beds full and said they did not anticipate that there would have a bed available for the next few days. [facility] was contacted and they agreed to accept patient to the medical ICU but said that they would only have a bed in 1 day. Patient currently pending transfer to [facility] medical ICU pending availability of bed. Hospitalist went back into explained to patient and his family the situation. Patient now requested that he be completely sedated so that he did not freak out because when he was awake he started freaking out because he thought he could not breathe. Soap Chi[facility] Dr. Sammy Vargas called on the phone and hospitalist discussed situation with him. Test was stated that he will give orders to the nurses about the sedation to heavily sedate patient/ Code Visit Inpatient E&M: [id number] [facility] L3
--- NOTE | 2019-01-22 09:45 | PN_ITS ---
Patient Problems: Active and Suspected Problems Epiglottitis (Acute) Severe sepsis (Acute) Subjective: Patient seen and examined. He was admitted for acute hypoxic respiratory failure due to acute epiglottitis with airway obstruction and severe sepsis due to acute epiglottitis.. Attempts at intubation by ENT and anesthesia was unsuccessful and he had an LMA placed and was sent to the ED for emergent tracheostomy. He was admitted to the ICU afterwards. He is on IV Zosyn. Patient remains intubated with a tracheostomy. He was alert and able to shake his head or nodding response to questions. He admitted to pain at the site of the tracheostomy. He denied any fever chills, palpitations or dizziness, abdominal pain, diarrhea vomiting. Patient was in restraints and just said that he wanted the restraints removed. Labs and vitals reviewed. Vitals/I&O's: Vital Signs Temp Pulse Resp BP Pulse Ox 97.8 F 70 16 91/44 L 99 01/22/19 04:00 01/22/19 08:00 01/22/19 06:40 01/22/19 06:00 01/22/19 06:40 Oxygen Delivery Method Mechanical Ventilator Weight: 276 lb 7.355 oz Body Mass Index (BMI) 32.7 Intake and Output for Last 24 Hours 01/20/19 01/21/19 01/22/19 23:59 23:59 23:59 Intake Total 1984.9 / 1984.9 Output Total 600 / 600 Balance 1384.9 / 1384.9 General: Alert, Cooperative, - - patient intubated HEENT: - - intubated via tracheostomy Neck: Supple, No JVD, Negative Carotid Bruits Lungs: Clear to auscultation, Normal air movement, No rhonchi, No wheeze, No rales Cardiovascular: Regular rate, Regular Rhythm, Normal S1, Normal S2, No murmurs Abdomen: Bowel Sounds Present, Soft, Non Tender, Non-Distended, No Hepato- splenomegaly Extremities: No clubbing, No cyanosis, No edema, Capillary Refill Less than 3 Seconds Skin: No rashes, No breakdown Musculoskeletal: No Tenderness to Palpation of Joints or Extremities Lymphatic: No Cervical, Supraclavicular, or Inguinal Adenopathy Neurological: Cranial nerves II-XII grossly intact, Motor Exam 5/5 strength throughout, - - intubated, sedated, RASS socre is 0 Psych/Mental Status: Normal Affect, - - in UE restraints Laboratory Results 01/21/19 20:19: WBC 32.9 H*, RBC 5.63, Hgb 16.5, Hct 48.2, MCV 85.6, MCH 29.3, MCHC 34.2, RDW 12.6, RDW Differential 39.4, Plt Count 215, MPV 11.2, Immature Gran % (Auto) 0.300, Neut % (Auto) 93.5 H, Lymph % (Auto) 3.9 L, Terrell % (Auto) 2.1, Eos % (Auto) 0.0, Baso % (Auto) 0.2, Absolute Neuts (auto) 30.8 H, Absolute Lymphs (auto) 1.27, Total Counted Not Reportable, Differential Comment SCANNED, Diff Path Review March01/21/19 20:19: Sodium 138, Potassium 4.7, Chloride 107, Carbon Dioxide 27.0, Anion Gap 4 L, BUN 15, Creatinine 1.08, Estim Creat Clear Calc 98.19, Est GFR (MDRD) Af Amer 102, Est GFR (MDRD) Non-Af 84, BUN/Creatinine Ratio 13.9, Glucose 117 H, Calcium 9.4, Total Bilirubin 0.40, AST 40 H, ALT 92 H, Alkaline Phosphatase 89, Total Protein 8.2, Albumin 4.3, Globulin 3.9, Albumin/Globulin Ratio 1.1 01/21/19 20:19: Lactic Acid 2.0 01/21/19 20:19: Hepatitis A IgM Ab Pending, Hepatitis A Ab Total Pending, Hep Bs Antigen Pending, Hep B Core Total Ab Pending, Hep B Core IgM Ab Pending 01/21/19 20:19: Phosphorus 1.8 L, Magnesium 2.0, TSH 0.23 L, Free T4 0.94 01/21/19 23:54: Specimen Type ART, Sample Site L Radial, pH 7.30 L, Bicarbonate Actual 26.5 H, POC Total CO2 28, Base Excess 0, O2 Saturation 99, O2 % 50, ABG pCO2 53.8 H, ABG pO2 141 H, Rommel Test POS, Respiration Rate 16, O2 Delivery Device Vent, Vent Mode A-C, Tidal Volume 550, POC PEEP 5, Blood Gas Notified Whom RADHA GA, Blood Gas Notified Time 2350 03/15/19 00:20: Urine Opiates Screen NEGATIVE, Urine Methadone Screen NEGATIVE, Ur Barbiturates Screen NEGATIVE, Ur Phencyclidine Scrn NEGATIVE, Ur Amphetamines Screen NEGATIVE, U Methamphetamin-MDMA NEGATIVE, U Benzodiazepines Scrn NEGATIVE, Urine Cocaine Screen NEGATIVE, U Cannabinoids Screen NEGATIVE, Ur Drug Screen Comment 01/22/19 00:48: Lactic Acid 2.5 H 01/22/19 04:45: WBC Cancelled, Corrected WBC Cancelled, RBC Cancelled, Hgb Cancelled, Hct Cancelled, MCV Cancelled, MCH Cancelled, MCHC Cancelled, RDW Cancelled, RDW Differential Cancelled, Plt Count Cancelled, MPV Cancelled, Immature Gran % (Auto) Cancelled, Neut % (Auto) Cancelled, Lymph % (Auto) Cancelled, Terrell % (Auto) Cancelled, Eos % (Auto) Cancelled, Baso % (Auto) Cancelled, Absolute Neuts (auto) Cancelled, Absolute Lymphs (auto) Cancelled, Total Counted Cancelled, Neutrophils % (Manual) Cancelled, Band Neutrophils % Cancelled, Lymphocytes % (Manual) Cancelled, Monocytes % (Manual) Cancelled, Eosinophils % (Manual) Cancelled, Basophils % (Manual) Cancelled, Metamyelocytes % Cancelled, Myelocytes % Cancelled, Promyelocytes % Cancelled, Blast Cells % Cancelled, Plasma Cell % (Manual) Cancelled, Other Cells % Cancelled, Nucleated RBCs/100 WBC Cancelled, Differential Comment Cancelled, Diff Path Review Cancelled, Hypersegmented Neuts Cancelled, Atypical Lymphocytes Cancelled, Reactive Lymphocytes Cancelled, Smudge Cells Cancelled, Toxic Granulation Cancelled, Dohle Bodies Cancelled, Travis Rods Cancelled, Platelet Estimate Cancelled, Plt Morphology Comment Cancelled, RBC Morphology Cancelled, Polychromasia Cancelled, Hypochromasia Cancelled, Poikilocytosis Cancelled, Basophilic Stippling Cancelled, Anisocytosis Cancelled, Microcytosis Cancelled, Macrocytosis Cancelled, Spherocytes Cancelled, Sickle Cells Cancelled, Target Cells Cancelled, Tear Drop Cells Cancelled, Ovalocytes Cancelled, Stomatocytes Cancelled, Kathleen-London Bodies Cancelled, Bry Cells Cancelled, Bite Cells Cancelled, Acanthocytes (Spur) Cancelled, Rouleaux Cancelled, Schistocytes Cancelled 01/22/19 04:45: Sodium Cancelled, Potassium Cancelled, Chloride Cancelled, Carbon Dioxide Cancelled, Anion Gap Cancelled, BUN Cancelled, Creatinine Cancelled, Estim Creat Clear Calc Cancelled, Est GFR (MDRD) Af Amer Cancelled, Est GFR (MDRD) Non-Af Cancelled, BUN/Creatinine Ratio Cancelled, Glucose Cancelled, Calcium Cancelled, Total Bilirubin Cancelled, AST Cancelled, ALT Cancelled, Alkaline Phosphatase Cancelled, Total Protein Cancelled, Albumin Cancelled, Globulin Cancelled, Albumin/Globulin Ratio Cancelled 01/22/19 04:45: Lactic Acid Cancelled 01/22/19 05:35: Sodium 141, Potassium 6.8 H*, Chloride 110 H, Carbon Dioxide 24.0, Anion Gap 7, BUN 23 H, Creatinine 1.86 H, Estim Creat Clear Calc 71.85, Est GFR (MDRD) Af Amer 54 L, Est GFR (MDRD) Non-Af 45 L, BUN/Creatinine Ratio 12.4, Glucose 130 H, Calcium 7.7 L, Total Bilirubin 0.40, AST 31, ALT 71 H, Alkaline Phosphatase 67, Total Protein 6.8, Albumin 3.2, Globulin 3.6, Albumin/Globulin Ratio 0.9 01/22/19 05:35: WBC 33.2 H*, RBC 4.86, Hgb 14.3, Hct 42.1, MCV 86.6, MCH 29.4, MCHC 34.0, RDW 12.8, RDW Differential 39.6, Plt Count 274, MPV 11.3, Immature Gran % (Auto) 0.300, Neut % (Auto) 91.5 H, Lymph % (Auto) 2.5 L, Terrell % (Auto) 5.6, Eos % (Auto) 0.0, Baso % (Auto) 0.1, Absolute Neuts (auto) 30.4 H, Absolute Lymphs (auto) 0.82 L, Total Counted Not Reportable, Differential Comment SCAN, Diff Path Review March01/22/19 05:35: Lactic Acid 2.3 H Diagnostic Data Soft Tissue Neck CT 01/21/19 18:30 IMPRESSION: Thickened epiglottis with gas which could be infectious or traumatic in etiology. Mild prominence of the lingual tonsil. Mild bilateral cervical adenopathy. Electronically Signed: Arnold Valentin DO at 19:50 EDT Tel [phone], Service support , ADDENDUM: 01/21/192002 IMPRESSION: Thickened epiglottis with gas which could be infectious or traumatic in etiology. Mild prominence of the lingual tonsil. Mild bilateral cervical adenopathy. N.B. : The above information has been verbally conveyed by Arnold Valentin DO to Kenneth Early MD, on 01/21/2019 19:56:15 (ET). Electronically Signed: Arnold Valentin DO at 19:50 EDT Tel [phone], Service support , Current Medications Acetaminophen (Tylenol) 650 mg PO Q6H PRN PRN PRN Reason: Non-cardiac pain (mod-severe) Albuterol Sulfate (Ventolin Aerosols) 2.5 mg INHALATION Q2H PRN PRN PRN Reason: dyspnea, wheezing Chlorhexidine Gluconate () 15 ml PO BID [facility] Last Admin: 01/21/19 23:17 Dose: 15 ml Enoxaparin Sodium (Lovenox) 40 mg SC DAILY@1000 [facility] Hydralazine HCl (Apresoline Iv) 10 mg IV Q4H PRN PRN PRN Reason: SBP > 160 Hydromorphone HCl (Dilaudid Inj) 1 mg IV Q2H PRN PRN PRN Reason: SEVERE PAIN (6-10/10) Sodium Chloride () 1,000 mls @ 125 mls/hr IV .Q8H [facility] Last Admin: 01/22/19 06:57 Dose: 125 mls/hr Ceftriaxone Sodium 2 gm/ (Sodium Chloride) 50 mls @ 100 mls/hr IV Q12 [facility] Last Admin: 01/21/19 23:20 Dose: 100 mls/hr Famotidine 20 mg/ Sodium (Chloride) 10 mls @ 300 mls/hr IV Q12 [facility] Last Admin: 01/21/19 23:20 Dose: 300 mls/hr Fentanyl () 100 mls @ 2.5 mls/hr IV .Q40H [facility] Last Admin: 01/22/19 06:12 Dose: 2.5 mls/hr Propofol (Diprivan) 1,000 mg in 100 mls @ 6.804 mls/hr CONT INF .Q12H [facility] Last Admin: 01/22/19 05:44 Dose: 6.804 mls/hr Vancomycin IV Pharmacy to Dose (1 ea/ Sodium Chloride) 500 mls @ 250 mls/hr IV X1 PRN; Protocol PRN Reason: Rx to Dose Vancomycin HCl 1,500 mg/ (Sodium Chloride) 530 mls @ 250 mls/hr IV Q12H [facility] Metoprolol Tartrate (Lopressor (Beta Evangelist)) 5 mg IV Q6H PRN PRN PRN Reason: SBP > 160, hold for HR < 60 Ondansetron HCl (Zofran) 4 mg IV Q8H PRN PRN PRN Reason: NAUSEA/VOMITING Sodium Chloride () 5 - 15 ml IV UD PRN PRN Reason: SALINE FLUSH Last Admin: 01/22/19 00:15 Dose: 15 ml Medical Necessity - Tobacco Use Smoking Status: Current some day smoker Tobacco Use: Cigarettes Assessment/Plan All Active Problems Epiglottitis (Acute) Severe sepsis (Acute) 1. Severe sepsis due to acute epiglottitis * patient intubated via emergent tracheostomy as ENT and anesthesia were unable to intubate him * wbc is 33.2 today, was 32.9 yesterday * on IV unasyn * blood cultures pending * 2. Acute hypoxic respiratory failure due to severe epiglottitis with airway obstruction * had emergent tracheostomy * CT soft tissue head/neck showed thickened epiglottitis with gas and multiple prominence of the lingual tonsil as well as mild bilateral cervical adenopathy. * currently intubated and sedated. * yeast fermentation attendant on board * 3. Hyperkalemia: * K is 6.8. Per yeast fermentation attendant, plan is to repeat K level and see; * patient also received K phosphate o/a of hypophosphatemia. Management will depend on repeat K. 4. SHARON: * Cr up to 1.86 today, from 1.08 on admission. * Likely prerenal. * Will hydrate and monitor. If kidney function worsens, consider nephrology consult. 5. SUbclinical hyperthyroidism: TSH was 0.23, free T4 was 0.94. However, may not be very accurate in setting of acute illness. Will repeat after acute phase is over. 6. Lactic acidosis: Lactic acid is up to 2.3 today. Likely due to hypotension. We will hydrate and monitor 7. Hypertension: * was initially hypertensive, with BP up to 250s sytolic. This was likely due to patient's impending respiratory failure. * Subsequently developed hypotension blood pressure going down to the 90s systolic. * BP control now improved. Had been off his meds for a year according to family. * on IV hydralazine prn * 8.GERD: on famotidine. DVT prophylaxis: Lovenox-renal dosing 4:39pm Hospitalist was called by nurse because patient wanted to be transferred as he felt that he was not receiving good medical care here. Hospitalist came up to see patient who wrote on a piece of paper that he wanted to be out of the hospital because he did not think we were helping him. Hospitalist explained to patient that he could not take the tracheostomy out as he was threatening to do because he needed it and to be able to breathe. Hospitalist counseled patient that he would if he took out the tracheostomy. Patient explained that he felt he was drowning and could not breathe. Hospitalist explained to patient that on account of his airway edema, he would not be able to taking deep breaths as he was hoping to. Patient insisted on being transferred. Hospitalist contacted [facility] which was patient's first preference and [facility]. Both facilities at the ICU beds full and said they did not anticipate that there would have a bed available for the next few days. [facility] was contacted and they agreed to accept patient to the medical ICU but said that they would only have a bed in 1 day. Patient currently pending transfer to [facility] medical ICU pending availability of bed. Hospitalist went back into explained to patient and his family the situation. Patient now requested that he be completely sedated so that he did not freak out because when he was awake he started freaking out because he thought he could not breathe. Middle Stitcher Dr. Sammy Vargas called on the phone and hospitalist discussed situation with him. Test was stated that he will give orders to the nurses about the sedation to heavily sedate patient/ Code Visit Inpatient E&M: [id number] [place] [id number]
[2019-01-22] MEDS: Dexmedetomidine 1,000 mcg in 0.9% NS 240 mL 15.68 MCG IV (10:27)
[2019-01-22] MEDS: Chlorhexidine 15 ML PO ×2 (10:27→23:02)
[2019-01-22] MEDS: Enoxaparin 40 MG/0.4 ML Syringe SC (10:30)
--- NOTE | 2019-01-22 10:55 | CASEMGMT ---
RN CM Assessment Presentation: Epiglottitis, severe sepsis. Required emergency tracheostomy and ventilatory support. Per ICU interdisciplinary rounds- Dr. Campbell plans to re-evaluate pt on Friday and if stable, will remove trach. Intro role of CM and purpose of RN CM assessment to patient, his father and female in room who identified herself twice as his sister, Verna. Pt is awake, able to participate by mouthing, nodding and writing on tablet. Father and sister also able to participate.. Demographics, PCP and Pharmacy verified. PCP: No PCP. May need addressed when pt is off ventilator. Plan is to follow up with ENT for this admission. Specialists: Dr. Campbell Preferred [facility]acy: [facility]. entered in chart Insurance: MMO Prescription Benefit: yes LNOK: Mother and Father. Father is listed on facesheet. Noted that pt requested his mother not be present in room during ICU rounds. Living Arrangements: independent prior to admission. Transportation: drives DME: none HHC: none Patient DC goals: home SW Consult: Hx of etoh and drug use. Noted also that pt did not wish family to be present in room during rounds except his father and sister. Other family waited in waiting room. DC PLAN: Anticipate trach will be removed prior to dc and pt can return home. CM will continue to follow and assist with any dc needs. Nilo LUNDBERG RN ACM
[2019-01-22 10:58] LABS: Anion Gap 7 (5-15); BUN 28 mg/dL (7-18); BUN/Creat Ratio 15.5 RATIO (10-20); Calcium,Total 7.4 mg/dL (8.5-10.1); Chloride 112 mmol/L (98-107); Creatinine, Serum 1.81 mg/dL (0.70-1.30); EST Glomerular Filtration Rate 46 mL/min (>60); Est Glom Filt Rate - Afr Amer 56 mL/min (>60); Estimated Creatinine Clearance 73.84 ml/min; Glucose 119 mg/dL (74-106); Potassium 4.9 mmol/L (3.5-5.1); Sodium Level 144 mmol/L (136-145)
--- NOTE | 2019-01-22 14:15 | NURSING ---
Bed bath and complete linen change done. Trach dressing removed, old dried drainage noted, area cleansed, increased bloody drainage noted after dressing change. New split dressing applied and reinforced. PT c/o increased pain to trach site after trach care and bath. Fentanyl increased for comfort (see med titration). Emotional support given. Sister at bedside.
--- NOTE | 2019-01-22 15:45 | NURSING ---
PT called out requesting to be suctioned. Suctioned via trach small amt thin clear/white secretions, lungs clear, SPO2 100%. PT c/o being unable to breath and feeling like he is choking. Trach dressing changed d/t moderate amt bloody drainage. Repositioned trach/ventilator in attempt to make patient more comfortable. Also called RT to come assess patient as well. PT then became increasingly agitated/frustrated/aggressive towards this RN, stating I was fine until you messed with me (referring to giving a bath, linen change, and trach care/dressing change around 1400). He then threw the pen and paper w/ an extremely agitated demeanor. After multiple attempts to calm the patient with emotional support and reassurance, he continued to be agitated and appeared to be clenching his fists in frustration. This RN backed away and ultimately left the room to given the patient space and time to calm down. Family at bedside. 1615- Mother came out to nurses station and apologized for the patient's behavior. She stated Please don't take it personal. He is always like this when he doesn't get his way.
--- NOTE | 2019-01-22 16:48 | CPS ---
Pt agitated saying he is having trouble breathing. Pt had return tidal volumes, along with normal vital sign values. Educated patient on trach and position of cuff which may be causing discomfort. Patient typed in his phone I am done. I want a new hospital. I called Dr Richards and he asked for me to try patient off of ventilator with trach mask and cool aerosol. Also called Dr. Vargas for verbal order to try Dr Richardss suggestion, Dr Vargas gave verbal order to try pt off of ventilator and cool aerosol trach mask. Explained to patient that we would try him off of ventilator per Dr Richards suggestion, pt agreed. When I came back to room with supplies patient refused and asking to be transferred again.
--- NOTE | 2019-01-22 16:58 | NURSING ---
7515 IN PATIENT ROOM PATIENT REFUSING TO LET THIS RN TAKE BLOOD PRESSURE AND PLACE PULSE OX ON EXPLAINED RISKS OF THIS PATIENT WRITING THAT HE WANTS TO BE TRANSFERRED. DR GALDAMEZ PAGED TO COME SPEAK WITH PATIENT
--- NOTE | 2019-01-22 17:00 | NURSING ---
1700 RESUMING CARE OF PATIENT REPORT RECEIVED FROM ALBERT ALVARENGA
[2019-01-22 17:13] LABS: CPK Total, Creatine Kinase 583 U/L (39-308); Triglycerides 137 mg/dL
[2019-01-22] MEDS: Propofol 10MG/Ml 1,000 MG/100 ML Bottle 7.524 MG CONT INF ×2 (17:14→23:00)
--- NOTE | 2019-01-22 20:50 | NURSING ---
Addendum entered by Michael Loyd 01/23/19 03:43: Family expressed to this RN at the nurses station that patient was threatening to pull out his own trach. MD and bellows charger assembler notified. Original Note: Entered pt's room with pt's significant, Sophy, at bedside. Pt visibly agitated. Pt writing I want to leave now. Attempted to explain to pt that [facility] accepted him, but they did not have beds available at this time and may not until tomorrow per their facility. Pt demanding that he be transferred to any facility other than this one. Pt unsatisfied and continues to act aggressively towards this RN. Again, attempted to calm pt down with emotional support but was unable to reason with pt at this time. Pt then demanded that this RN leave the room. MD, bellows charger assembler, and lead worker of housekeeping and laundry notified. Family expressed
--- NOTE | 2019-01-22 20:50 | NURSING ---
[facility] transfer line called for bed update by this RN. CC states,realistically I don't see a bed coming available tonight, but anything can happen.
--- NOTE | 2019-01-22 21:38 | NURSING ---
Pt adamantly demanding transfer to any facility other than [facility]. Staff unable to reason with patient, family also attempting to reason with pt as well without success. Pt's sister left pt room sobbing, states,He told me if I didn't come out here and get you guys to transfer him that I am on your side and I am no longer his family. Emotional support provided to pt's sister. Dr. Quick updated x2 about situation and will be up to the bedside as soon as possible to talk with patient and family. Pt's uncle is currently at the bedside with patient, and pt still remains extremely agitated.
[2019-01-23] VITALS (22 sets, daily range): BP systolic 118–137; BP diastolic 55–82; PULSE 46–56; RESP 16; TEMP 36.1–36.6; O2SAT 100
[2019-01-23] MEDS: Propofol 10MG/Ml 1,000 MG/100 ML Bottle 7.524 MG CONT INF ×6 (01:54→17:49)
[2019-01-23 04:07] LABS: HEPATITIS B SURFACE AG Negative (Negative); Hepatitis A AB, Total Negative (Negative); Hepatitis A IgM Antibody Negative (Negative); Hepatitis B Core AB IgM Negative (Negative); Hepatitis B Core Ab Total Negative (Negative); Hepatitis C Ab <0.1 s/co ratio (0.0-0.9)
[2019-01-23] MEDS: 0.9% NaCl Peripheral Flush Adult/Peds IV (04:18)
[2019-01-23] MEDS: fentaNYL drip 100 ML 2.5 MCG IV ×3 (04:48→15:38)
[2019-01-23 04:58] LABS: Absolute Lymphocyte Count 1.82 X10^3/ul (0.83-4.51); Absolute Neutrophil Count 11.7 X10^3/uL (2.0-7.7); Basophil# 0.02 X10^3/uL; Basophil% 0.1 % (0-1); Eosinophil# 0.06 X10^3/uL; Eosinophils% 0.4 % (0-5); Hematocrit 37.3 % (40-54); Hemoglobin 12.2 g/dl (13.0-16.5); Lymphocyte # 1.82 X10^3/ul (4.0); Lymphocyte % 12.1 % (19-41); Mean Corp Hgb Conc 32.7 g/gl (32-36); Mean Corpuscular Hgb 29.7 pg (27.0-32.0); Mean Corpuscular Volume 90.8 fL (80-94); Mean Platelet Vol. 11.5 fl (6.2-12.0); Monocyte# 1.35 X10^3/uL; Neutrophil % 78.1 % (47-70); Platelet Count 172 K/mm3 (150-450); RBC Distribution Width CV 13.1 % (11.6-14.6); RBC Distribution Width SD 42.9 fl (35.1-43.9); Red Blood Count 4.11 M/mm3 (4.6-6.2)
[2019-01-23 05:00] LABS: POSITIVE COUNT NO; POSITIVE DIFFERENTIAL NO; POSITIVE MORPHOLOGY NO
[2019-01-23 05:09] LABS: Anion Gap 5 (5-15); BUN 33 mg/dL (7-18); BUN/Creat Ratio 20.5 RATIO (10-20); Calcium,Total 8.1 mg/dL (8.5-10.1); Chloride 114 mmol/L (98-107); Creatinine, Serum 1.61 mg/dL (0.70-1.30); EST Glomerular Filtration Rate 53 mL/min (>60); Est Glom Filt Rate - Afr Amer 64 mL/min (>60); Estimated Creatinine Clearance 83.01 ml/min; Glucose 98 mg/dL (74-106); Potassium 4.1 mmol/L (3.5-5.1); Sodium Level 146 mmol/L (136-145)
--- NOTE | 2019-01-23 06:00 | PN_ITS ---
Subjective: The patient was seen and examined at the bedside this morning. Events from the last 24 hours have been reviewed. The patient is currently afebrile, hemodynamically stable and maintaining appropriate oxygen saturations with an FiO2 requirement of 35%. The patient's white blood cell count is improving. His creatinine is also improving. Yesterday, the patient became belligerent and extremely agitated with staff. He demanded to be transferred to another facility. Multiple individual spoke with the patient and attempted to console him. He subsequently demanded that his sedation regimen be increased. The patient's Precedex was then discontinued. He was placed back on propofol and his fentanyl rate was increased. The patient is now on assist control mode of mechanical ventilation with propofol at 40 mg and fentanyl at 200 mcg. He is currently resting comfortably. Objective: The patient's most recent lab work, culture data and imaging studies have all been personally reviewed. General: - - Intubated, sedated and mechanically ventilated. HEENT: Atraumatic, PERRLA, Normocephalic Oral: Dry Mucosa Neck: Supple, No Nodes, Trachea Midline, - - Tracheostomy site is C/D/I Lungs: No rhonchi, No wheeze, No rales, Diminished Cardiovascular: Normal S1, Normal S2, No murmurs, Bradycardic Abdomen: Bowel Sounds Present, Soft, Non Tender, Obese Extremities: No clubbing, No cyanosis, No edema Skin: No breakdown Musculoskeletal: No Tenderness to Palpation of Joints or Extremities Lymphatic: No Cervical, Supraclavicular, or Inguinal Adenopathy Neurological: - - No focal neurological deficits. Psych/Mental Status: - - Agitated and restless when stimulated Vital Signs Temp Pulse Resp BP Pulse Ox 36.4 C L 49 L 16 121/64 H 100 01/23/19 04:00 01/23/19 05:00 01/23/19 05:00 01/23/19 05:00 01/23/19 05:00 Oxygen Delivery Method Mechanical Ventilator Weight: 278 lb 10.629 oz Body Mass Index (BMI) 32.7 Intake and Output for Last 24 Hours 01/21/19 01/22/19 01/23/19 23:59 23:59 23:59 Intake Total 6910.9 / 6910.9 835 / 835 Output Total 2100 / 2100 400 / 400 Balance 4810.9 / 4810.9 435 / 435 Labs (Last 48 Hours) 01/21/19 01/21/19 01/21/19 20:19 20:19 20:19 WBC 32.9 H* Corrected WBC RBC 5.63 Hgb 16.5 Hct 48.2 MCV 85.6 MCH 29.3 MCHC 34.2 RDW 12.6 RDW Differential 39.4 Plt Count 215 MPV 11.2 Immature Gran % (Auto) 0.300 Neut % (Auto) 93.5 H Lymph % (Auto) 3.9 L [place] % (Auto) 2.1 Eos % (Auto) 0.0 Baso % (Auto) 0.2 Absolute Neuts (auto) 30.8 H Absolute Lymphs (auto) 1.27 Total Counted Not Reportable Neutrophils % (Manual) Band Neutrophils % Lymphocytes % (Manual) Monocytes % (Manual) Eosinophils % (Manual) Basophils % (Manual) Metamyelocytes % Myelocytes % Promyelocytes % Blast Cells % Plasma Cell % (Manual) Other Cells % Nucleated RBCs/100 WBC Differential Comment SCANNED Diff Path Review May foll Hypersegmented Neuts Atypical Lymphocytes Reactive Lymphocytes Smudge Cells Toxic Granulation Dohle Bodies Travis Rods Platelet Estimate Plt Morphology Comment RBC Morphology Polychromasia Hypochromasia Poikilocytosis Basophilic Stippling Anisocytosis Microcytosis Macrocytosis Spherocytes Sickle Cells Target Cells Tear Drop Cells Ovalocytes Stomatocytes [place] Bodies [place] Cells Bite Cells Acanthocytes (Spur) Rouleaux Schistocytes Specimen Type Sample Site pH Bicarbonate Actual POC Total CO2 Base Excess O2 Saturation O2 % ABG pCO2 ABG pO2 Rommel Test Respiration Rate O2 Delivery Device Vent Mode Tidal Volume POC PEEP Blood Gas Notified Whom Blood Gas Notified Time Sodium 138 Potassium 4.7 Chloride 107 Carbon Dioxide 27.0 Anion Gap 4 L BUN 15 Creatinine 1.08 Estim Creat Clear Calc 98.19 Est GFR (MDRD) Af Amer 102 Est GFR (MDRD) Non-Af 84 BUN/Creatinine Ratio 13.9 Glucose 117 H Lactic Acid 2.0 Calcium 9.4 Phosphorus Magnesium Total Bilirubin 0.40 AST 40 H ALT 92 H Alkaline Phosphatase 89 Total Creatine Kinase Total Protein 8.2 Albumin 4.3 Globulin 3.9 Albumin/Globulin Ratio 1.1 Triglycerides TSH Free T4 Urine Opiates Screen Urine Methadone Screen Ur Barbiturates Screen Ur Phencyclidine Scrn Ur Amphetamines Screen U Methamphetamin-MDMA U Benzodiazepines Scrn Urine Cocaine Screen U Cannabinoids Screen Ur Drug Screen Comment Hepatitis A IgM Ab Hepatitis A Ab Total Hep Bs Antigen Hep B Core Total Ab Hep B Core IgM Ab 01/21/19 01/21/19 01/21/19 20:19 20:19 23:54 WBC Corrected WBC RBC Hgb Hct MCV MCH MCHC RDW RDW Differential Plt Count MPV Immature Gran % (Auto) Neut % (Auto) Lymph % (Auto) [place] % (Auto) Eos % (Auto) Baso % (Auto) Absolute Neuts (auto) Absolute Lymphs (auto) Total Counted Neutrophils % (Manual) Band Neutrophils % Lymphocytes % (Manual) Monocytes % (Manual) Eosinophils % (Manual) Basophils % (Manual) Metamyelocytes % Myelocytes % Promyelocytes % Blast Cells % Plasma Cell % (Manual) Other Cells % Nucleated RBCs/100 WBC Differential Comment Diff Path Review Hypersegmented Neuts Atypical Lymphocytes Reactive Lymphocytes Smudge Cells Toxic Granulation Dohle Bodies Travis Rods Platelet Estimate Plt Morphology Comment RBC Morphology Polychromasia Hypochromasia Poikilocytosis Basophilic Stippling Anisocytosis Microcytosis Macrocytosis Spherocytes Sickle Cells Target Cells Tear Drop Cells Ovalocytes Stomatocytes [place] Bodies [place] Cells Bite Cells Acanthocytes (Spur) Rouleaux Schistocytes Specimen Type ART Sample Site L Radial pH 7.30 L Bicarbonate Actual 26.5 H POC Total CO2 28 Base Excess 0 O2 Saturation 99 O2 % 50 ABG pCO2 53.8 H ABG pO2 141 H Rommel Test POS Respiration Rate 16 O2 Delivery Device Vent Vent Mode A-C Tidal Volume 550 POC PEEP 5 Blood Gas Notified Whom [facility] Blood Gas Notified Time 2350 Sodium Potassium Chloride Carbon Dioxide Anion Gap BUN Creatinine Estim Creat Clear Calc Est GFR (MDRD) Af Amer Est GFR (MDRD) Non-Af BUN/Creatinine Ratio Glucose Lactic Acid Calcium Phosphorus 1.8 L Magnesium 2.0 Total Bilirubin AST ALT Alkaline Phosphatase Total Creatine Kinase Total Protein Albumin Globulin Albumin/Globulin Ratio Triglycerides TSH 0.23 L Free T4 0.94 Urine Opiates Screen Urine Methadone Screen Ur Barbiturates Screen Ur Phencyclidine Scrn Ur Amphetamines Screen U Methamphetamin-MDMA U Benzodiazepines Scrn Urine Cocaine Screen U Cannabinoids Screen Ur Drug Screen Comment Hepatitis A IgM Ab Pending Hepatitis A Ab Total Pending Hep Bs Antigen Pending Hep B Core Total Ab Pending Hep B Core IgM Ab Pending 01/22/19 01/22/19 01/22/19 00:20 00:48 04:45 WBC Cancelled Corrected WBC Cancelled RBC Cancelled Hgb Cancelled Hct Cancelled MCV Cancelled MCH Cancelled MCHC Cancelled RDW Cancelled RDW Differential Cancelled Plt Count Cancelled MPV Cancelled Immature Gran % (Auto) Cancelled Neut % (Auto) Cancelled Lymph % (Auto) Cancelled [place] % (Auto) Cancelled Eos % (Auto) Cancelled Baso % (Auto) Cancelled Absolute Neuts (auto) Cancelled Absolute Lymphs (auto) Cancelled Total Counted Cancelled Neutrophils % (Manual) Cancelled Band Neutrophils % Cancelled Lymphocytes % (Manual) Cancelled Monocytes % (Manual) Cancelled Eosinophils % (Manual) Cancelled Basophils % (Manual) Cancelled Metamyelocytes % Cancelled Myelocytes % Cancelled Promyelocytes % Cancelled Blast Cells % Cancelled Plasma Cell % (Manual) Cancelled Other Cells % Cancelled Nucleated RBCs/100 WBC Cancelled Differential Comment Cancelled Diff Path Review Cancelled Hypersegmented Neuts Cancelled Atypical Lymphocytes Cancelled Reactive Lymphocytes Cancelled Smudge Cells Cancelled Toxic Granulation Cancelled Dohle Bodies Cancelled Travis Rods Cancelled Platelet Estimate Cancelled Plt Morphology Comment Cancelled RBC Morphology Cancelled Polychromasia Cancelled Hypochromasia Cancelled Poikilocytosis Cancelled Basophilic Stippling Cancelled Anisocytosis Cancelled Microcytosis Cancelled Macrocytosis Cancelled Spherocytes Cancelled Sickle Cells Cancelled Target Cells Cancelled Tear Drop Cells Cancelled Ovalocytes Cancelled Stomatocytes Cancelled [place] Bodies Cancelled [place] Cells Cancelled Bite Cells Cancelled Acanthocytes (Spur) Cancelled Rouleaux Cancelled Schistocytes Cancelled Specimen Type Sample Site pH Bicarbonate Actual POC Total CO2 Base Excess O2 Saturation O2 % ABG pCO2 ABG pO2 Rommel Test Respiration Rate O2 Delivery Device Vent Mode Tidal Volume POC PEEP Blood Gas Notified Whom Blood Gas Notified Time Sodium Potassium Chloride Carbon Dioxide Anion Gap BUN Creatinine Estim Creat Clear Calc Est GFR (MDRD) Af Amer Est GFR (MDRD) Non-Af BUN/Creatinine Ratio Glucose Lactic Acid 2.5 H Calcium Phosphorus Magnesium Total Bilirubin AST ALT Alkaline Phosphatase Total Creatine Kinase Total Protein Albumin Globulin Albumin/Globulin Ratio Triglycerides TSH Free T4 Urine Opiates Screen NEGATIVE Urine Methadone Screen NEGATIVE Ur Barbiturates Screen NEGATIVE Ur Phencyclidine Scrn NEGATIVE Ur Amphetamines Screen NEGATIVE U Methamphetamin-MDMA NEGATIVE U Benzodiazepines Scrn NEGATIVE Urine Cocaine Screen NEGATIVE U Cannabinoids Screen NEGATIVE Ur Drug Screen Comment Hepatitis A IgM Ab Hepatitis A Ab Total Hep Bs Antigen Hep B Core Total Ab Hep B Core IgM Ab 01/22/19 01/22/19 01/22/19 04:45 04:45 05:35 WBC Corrected WBC RBC Hgb Hct MCV MCH MCHC RDW RDW Differential Plt Count MPV Immature Gran % (Auto) Neut % (Auto) Lymph % (Auto) [place] % (Auto) Eos % (Auto) Baso % (Auto) Absolute Neuts (auto) Absolute Lymphs (auto) Total Counted Neutrophils % (Manual) Band Neutrophils % Lymphocytes % (Manual) Monocytes % (Manual) Eosinophils % (Manual) Basophils % (Manual) Metamyelocytes % Myelocytes % Promyelocytes % Blast Cells % Plasma Cell % (Manual) Other Cells % Nucleated RBCs/100 WBC Differential Comment Diff Path Review Hypersegmented Neuts Atypical Lymphocytes Reactive Lymphocytes Smudge Cells Toxic Granulation Dohle Bodies Travis Rods Platelet Estimate Plt Morphology Comment RBC Morphology Polychromasia Hypochromasia Poikilocytosis Basophilic Stippling Anisocytosis Microcytosis Macrocytosis Spherocytes Sickle Cells Target Cells Tear Drop Cells Ovalocytes Stomatocytes [place] Bodies [place] Cells Bite Cells Acanthocytes (Spur) Rouleaux Schistocytes Specimen Type Sample Site pH Bicarbonate Actual POC Total CO2 Base Excess O2 Saturation O2 % ABG pCO2 ABG pO2 Rommel Test Respiration Rate O2 Delivery Device Vent Mode Tidal Volume POC PEEP Blood Gas Notified Whom Blood Gas Notified Time Sodium Cancelled 141 Potassium Cancelled 6.8 H* Chloride Cancelled 110 H Carbon Dioxide Cancelled 24.0 Anion Gap Cancelled 7 BUN Cancelled 23 H Creatinine Cancelled 1.86 H Estim Creat Clear Calc Cancelled 71.85 Est GFR (MDRD) Af Amer Cancelled 54 L Est GFR (MDRD) Non-Af Cancelled 45 L BUN/Creatinine Ratio Cancelled 12.4 Glucose Cancelled 130 H Lactic Acid Cancelled Calcium Cancelled 7.7 L Phosphorus Magnesium Total Bilirubin Cancelled 0.40 AST Cancelled 31 ALT Cancelled 71 H Alkaline Phosphatase Cancelled 67 Total Creatine Kinase Total Protein Cancelled 6.8 Albumin Cancelled 3.2 Globulin Cancelled 3.6 Albumin/Globulin Ratio Cancelled 0.9 Triglycerides TSH Free T4 Urine Opiates Screen Urine Methadone Screen Ur Barbiturates Screen Ur Phencyclidine Scrn Ur Amphetamines Screen U Methamphetamin-MDMA U Benzodiazepines Scrn Urine Cocaine Screen U Cannabinoids Screen Ur Drug Screen Comment Hepatitis A IgM Ab Hepatitis A Ab Total Hep Bs Antigen Hep B Core Total Ab Hep B Core IgM Ab 01/22/19 01/22/19 01/22/19 05:35 05:35 10:30 WBC 33.2 H* Corrected WBC RBC 4.86 Hgb 14.3 Hct 42.1 MCV 86.6 MCH 29.4 MCHC 34.0 RDW 12.8 RDW Differential 39.6 Plt Count 274 MPV 11.3 Immature Gran % (Auto) 0.300 Neut % (Auto) 91.5 H Lymph % (Auto) 2.5 L [place] % (Auto) 5.6 Eos % (Auto) 0.0 Baso % (Auto) 0.1 Absolute Neuts (auto) 30.4 H Absolute Lymphs (auto) 0.82 L Total Counted Not Reportable Neutrophils % (Manual) Band Neutrophils % Lymphocytes % (Manual) Monocytes % (Manual) Eosinophils % (Manual) Basophils % (Manual) Metamyelocytes % Myelocytes % Promyelocytes % Blast Cells % Plasma Cell % (Manual) Other Cells % Nucleated RBCs/100 WBC Differential Comment SCAN Diff Path Review May foll Hypersegmented Neuts Atypical Lymphocytes Reactive Lymphocytes Smudge Cells Toxic Granulation Dohle Bodies Travis Rods Platelet Estimate Plt Morphology Comment RBC Morphology Polychromasia Hypochromasia Poikilocytosis Basophilic Stippling Anisocytosis Microcytosis Macrocytosis Spherocytes Sickle Cells Target Cells Tear Drop Cells Ovalocytes Stomatocytes [place] Bodies [place] Cells Bite Cells Acanthocytes (Spur) Rouleaux Schistocytes Specimen Type Sample Site pH Bicarbonate Actual POC Total CO2 Base Excess O2 Saturation O2 % ABG pCO2 ABG pO2 Rommel Test Respiration Rate O2 Delivery Device Vent Mode Tidal Volume POC PEEP Blood Gas Notified Whom Blood Gas Notified Time Sodium 144 Potassium 4.9 Chloride 112 H Carbon Dioxide 25.0 Anion Gap 7 BUN 28 H Creatinine 1.81 H Estim Creat Clear Calc 73.84 Est GFR (MDRD) Af Amer 56 L Est GFR (MDRD) Non-Af 46 L BUN/Creatinine Ratio 15.5 Glucose 119 H Lactic Acid 2.3 H Calcium 7.4 L Phosphorus Magnesium Total Bilirubin AST ALT Alkaline Phosphatase Total Creatine Kinase Total Protein Albumin Globulin Albumin/Globulin Ratio Triglycerides TSH Free T4 Urine Opiates Screen Urine Methadone Screen Ur Barbiturates Screen Ur Phencyclidine Scrn Ur Amphetamines Screen U Methamphetamin-MDMA U Benzodiazepines Scrn Urine Cocaine Screen U Cannabinoids Screen Ur Drug Screen Comment Hepatitis A IgM Ab Hepatitis A Ab Total Hep Bs Antigen Hep B Core Total Ab Hep B Core IgM Ab 01/22/19 01/23/19 01/23/19 10:30 04:45 04:45 WBC 15.0 H Corrected WBC RBC 4.11 L Hgb 12.2 L Hct 37.3 L MCV 90.8 MCH 29.7 MCHC 32.7 RDW 13.1 RDW Differential 42.9 Plt Count 172 MPV 11.5 Immature Gran % (Auto) 0.300 Neut % (Auto) 78.1 H Lymph % (Auto) 12.1 L [place] % (Auto) 9.0 Eos % (Auto) 0.4 Baso % (Auto) 0.1 Absolute Neuts (auto) 11.7 H Absolute Lymphs (auto) 1.82 Total Counted Not Reportable Neutrophils % (Manual) Band Neutrophils % Lymphocytes % (Manual) Monocytes % (Manual) Eosinophils % (Manual) Basophils % (Manual) Metamyelocytes % Myelocytes % Promyelocytes % Blast Cells % Plasma Cell % (Manual) Other Cells % Nucleated RBCs/100 WBC Differential Comment Diff Path Review Hypersegmented Neuts Atypical Lymphocytes Reactive Lymphocytes Smudge Cells Toxic Granulation Dohle Bodies Travis Rods Platelet Estimate Plt Morphology Comment RBC Morphology Polychromasia Hypochromasia Poikilocytosis Basophilic Stippling Anisocytosis Microcytosis Macrocytosis Spherocytes Sickle Cells Target Cells Tear Drop Cells Ovalocytes Stomatocytes [place] Bodies [place] Cells Bite Cells Acanthocytes (Spur) Rouleaux Schistocytes Specimen Type Sample Site pH Bicarbonate Actual POC Total CO2 Base Excess O2 Saturation O2 % ABG pCO2 ABG pO2 Rommel Test Respiration Rate O2 Delivery Device Vent Mode Tidal Volume POC PEEP Blood Gas Notified Whom Blood Gas Notified Time Sodium 146 H Potassium 4.1 Chloride 114 H Carbon Dioxide 27.0 Anion Gap 5 BUN 33 H Creatinine 1.61 H Estim Creat Clear Calc 83.01 Est GFR (MDRD) Af Amer 64 Est GFR (MDRD) Non-Af 53 L BUN/Creatinine Ratio 20.5 H Glucose 98 Lactic Acid Calcium 8.1 L Phosphorus Magnesium Total Bilirubin AST ALT Alkaline Phosphatase Total Creatine Kinase 583 H Total Protein Albumin Globulin Albumin/Globulin Ratio Triglycerides 137 TSH Free T4 Urine Opiates Screen Urine Methadone Screen Ur Barbiturates Screen Ur Phencyclidine Scrn Ur Amphetamines Screen U Methamphetamin-MDMA U Benzodiazepines Scrn Urine Cocaine Screen U Cannabinoids Screen Ur Drug Screen Comment Hepatitis A IgM Ab Hepatitis A Ab Total Hep Bs Antigen Hep B Core Total Ab Hep B Core IgM Ab Clinical Impression(s) from Imaging Studies Soft Tissue Neck CT 01/21/19 18:30 IMPRESSION: Thickened epiglottis with gas which could be infectious or traumatic in etiology. Mild prominence of the lingual tonsil. Mild bilateral cervical adenopathy. Electronically Signed: Arnold Valentin DO at 19:50 EDT Tel [phone], Service support , ADDENDUM: 01/21/192002 IMPRESSION: Thickened epiglottis with gas which could be infectious or traumatic in etiology. Mild prominence of the lingual tonsil. Mild bilateral cervical adenopathy. N.B. : The above information has been verbally conveyed by Arnold Valentin DO to Kenneth Early MD, on 01/21/2019 19:56:15 (ET). Electronically Signed: Arnold Valentin DO at 19:50 EDT Tel [phone], Service support , Liver Ultrasound 01/22/19 05:55 IMPRESSION: Hepatomegaly and fatty infiltration of the liver. Electronically Signed: Alfonso Sahu, at 11:30 EDT , Service support , Medical Necessity - Tobacco Use Smoking Status: Current some day smoker Tobacco Use: Cigarettes Assessment/Plan All Active Problems Epiglottitis (Acute) Severe sepsis (Acute) RECOMMENDATIONS: 1. Transition supplemental IV fluids to half-normal saline. 2. Continue propofol and fentanyl for sedation. 3. Continue antimicrobials as ordered. 4. Continue appropriate ICU prophylaxis. 5. ENT plans for scope tomorrow. IMPRESSIONS: 1. Acute respiratory failure secondary to epiglottitis status post emergent tracheostomy The patient is currently resting comfortably, after becoming agitated yesterday. Attempts were made to console the patient with different modes of mechanical ventilation. However, the patient remained exceedingly agitated and confrontat ional with staff. The patient's sedation regimen was optimized to include propofol and fentanyl. He is now resting comfortably on assist control mode mechanical ventilation, which will be continued without change. ENT is following, with plans to re-scope the patient tomorrow. Continue antibiotics as ordered. 2. Severe sepsis secondary to epiglottitis Continue antibiotics and supplemental IV fluids as ordered. The patient supplemental IV fluids will be transitioned to half normal saline, given rising sodium and chloride levels. 3. Acute kidney injury Improving. Continue supplemental IV fluid hydration as ordered. Continue to monitor urine output. No current indication for renal replacement therapy. 4. Obesity/history of polysubstance abuse/hypertension/GERD Complicates care, management, recovery and prognosis. Continue Pepcid as ordered. TIME: 35 minutes of critical care time, independent of procedures, was spent addressing the patient's acute respiratory failure, severe sepsis secondary to epiglottitis, acute kidney injury, review of all data and collaboration with the care team. ([phone]) Code Visit [id number]: [id number] Critical care first hour
[2019-01-23] MEDS: Dext 5%-0.45% NS 1,000 ML 125 ML IV ×2 (06:39→15:38)
--- NOTE | 2019-01-23 09:12 | PCM.PN.HOSP ---
Patient Problems: Active and Suspected Problems Epiglottitis (Acute) Severe sepsis (Acute) Subjective: Patient seen and examined. She remains on the ventilator via the tracheostomy. Patient is heavily sedated and [place] was -4 as he was unresponsive to sternal rub or his name being called. Patient had wished to be transferred to another facility yesterday as he did not think he was getting the help he needed here. [facility] accepted patient but there was no bed overnight. Labs and vitals reviewed. Patient noted to be bradycardic. Sodium is up to 146 and creatinine is down to 1.61 from 1.81 yesterday. Unable to do complains of review of systems as patient is intubated and sedated. Vitals/I&O's: Vital Signs Temp Pulse Resp BP Pulse Ox 97 F L 48 L 16 123/64 H 100 01/23/19 08:00 01/23/19 08:00 01/23/19 08:00 01/23/19 08:00 01/23/19 08:00 Oxygen Delivery Method Mechanical Ventilator Weight: 278 lb 10.629 oz Body Mass Index (BMI) 32.7 Intake and Output for Last 24 Hours 01/21/19 01/22/19 01/23/19 23:59 23:59 23:59 Intake Total 6910.9 / 6910.9 835 / 835 Output Total 2100 / 2100 400 / 400 Balance 4810.9 / 4810.9 435 / 435 General: patient intubated, heavily sedated. RASS score is ~ -4 HEENT: - - intubated via tracheostomy Neck: Supple, No JVD, Negative Carotid Bruits Lungs: Clear to auscultation, Normal air movement, No rhonchi, No wheeze, No rales Cardiovascular: Regular rate, Regular Rhythm, Normal S1, Normal S2, No murmurs Abdomen: Bowel Sounds Present, Soft, Non Tender, Non-Distended, No Hepato-splenomegaly Extremities: No clubbing, No cyanosis, No edema, Capillary Refill Less than 3 Seconds Skin: No rashes, No breakdown Musculoskeletal: No Tenderness to Palpation of Joints or Extremities Lymphatic: No Cervical, Supraclavicular, or Inguinal Adenopathy Neurological: Cranial nerves II-XII grossly intact, Motor Exam 5/5 strength throughout, - - intubated, sedated, RASS score is -4 Psych/Mental Status: Normal Affect, - - in UE restraints Laboratory Results 01/22/19 10:30: Sodium 144, Potassium 4.9, Chloride 112 H, Carbon Dioxide 25.0, Anion Gap 7, BUN 28 H, Creatinine 1.81 H, Estim Creat Clear Calc 73.84, Est GFR (MDRD) Af Amer 56 L, Est GFR (MDRD) Non-Af 46 L, BUN/Creatinine Ratio 15.5, Glucose 119 H, Calcium 7.4 L 01/22/19 10:30: Total Creatine Kinase 583 H, Triglycerides 137 01/23/19 04:45: WBC 15.0 H, RBC 4.11 L, Hgb 12.2 L, Hct 37.3 L, MCV 90.8, MCH 29.7, MCHC 32.7, RDW 13.1, RDW Differential 42.9, Plt Count 172, MPV 11.5, Immature Gran % (Auto) 0.300, Neut % (Auto) 78.1 H, Lymph % (Auto) 12.1 L, [place] % (Auto) 9.0, Eos % (Auto) 0.4, Baso % (Auto) 0.1, Absolute Neuts (auto) 11.7 H, Absolute Lymphs (auto) 1.82, Total Counted Not Reportable 01/23/19 04:45: Sodium 146 H, Potassium 4.1, Chloride 114 H, Carbon Dioxide 27.0, Anion Gap 5, BUN 33 H, Creatinine 1.61 H, Estim Creat Clear Calc 83.01, Est GFR (MDRD) Af Amer 64, Est GFR (MDRD) Non-Af 53 L, BUN/Creatinine Ratio 20.5 H, Glucose 98, Calcium 8.1 L Current Medications Acetaminophen (Tylenol) 650 mg PO Q6H PRN PRN PRN Reason: Non-cardiac pain (mod-severe) Albuterol Sulfate (Ventolin Aerosols) 2.5 mg INHALATION Q2H PRN PRN PRN Reason: dyspnea, wheezing Chlorhexidine Gluconate () 15 ml PO BID [facility] Last Admin: 01/22/19 23:02 Dose: 15 ml Enoxaparin Sodium (Lovenox) 40 mg SC DAILY@1000 [facility] Last Admin: 01/22/19 10:30 Dose: 40 mg Hydralazine HCl (Apresoline Iv) 10 mg IV Q4H PRN PRN PRN Reason: SBP > 160 Famotidine 20 mg/ Sodium (Chloride) 10 mls @ 300 mls/hr IV Q12 [facility] Last Admin: 01/22/19 23:00 Dose: 300 mls/hr Fentanyl () 100 mls @ 2.5 mls/hr IV .Q40H [facility] Last Admin: 01/23/19 04:48 Dose: 2.5 mls/hr Ampicillin Sodium/Sulbactam (Sodium 3 gm/ Sodium Chloride) 112 mls @ 150 mls/hr IV Q6 [facility] Last Admin: 01/23/19 05:52 Dose: 150 mls/hr Sodium Chloride () 250 mls @ 15 mls/hr IV .[id number] PRN PRN Reason: SALINE FLUSH Propofol (Diprivan) 1,000 mg in 100 mls @ 7.524 mls/hr CONT INF .Q12H [facility] Last Admin: 01/23/19 07:26 Dose: 7.524 mls/hr Dextrose/Sodium Chloride () 1,000 mls @ 125 mls/hr IV .Q8H [facility] Last Admin: 01/23/19 06:39 Dose: 125 mls/hr Ondansetron HCl (Zofran) 4 mg IV Q8H PRN PRN PRN Reason: NAUSEA/VOMITING Sodium Chloride () 5 - 15 ml IV UD PRN PRN Reason: SALINE FLUSH Last Admin: 01/23/19 04:18 Dose: 10 ml Medical Necessity - Tobacco Use Smoking Status: Current some day smoker Tobacco Use: Cigarettes Assessment/Plan All Active Problems Epiglottitis (Acute) Severe sepsis (Acute) 1. Severe sepsis due to acute epiglottitis patient intubated via emergent tracheostomy as ENT and anesthesia were unable to intubate him wbc down to 15 today, from 33.2 on IV unasyn blood cultures still pending. 2. Acute hypoxic respiratory failure due to severe epiglottitis with airway obstruction s/p emergent tracheostomy CT soft tissue head/neck showed thickened epiglottitis with gas and multiple prominence of the lingual tonsil as well as mild bilateral cervical adenopathy. currently intubated and sedated. RASS score is -4; patient wanted to be heavily sedated yesterday as he said he got very agitated and felt like he could not breathe when he was awake and alert. risk and compliance analytics director on board sedated with fentanyl and propofol 3. Hyperkalemia: resolved. K is 4.1 today. 4. SHARON, likely prerenal Cr is 1.61 today, down from 1.81 yesterday Monitoring creatinine with hydration. 5. SUbclinical hyperthyroidism: TSH was 0.23, free T4 was 0.94. Will get repeat labs once acute illness is over. 6. Lactic acidosis:likely due to hypotension. Resolved. 7. Hypertension: controlled. on IV hydralazine prn 8.GERD: on famotidine. DVT prophylaxis: Lovenox-renal dosing Disposition: awaiting transfer to [facility] ICU at patient's request Code Visit Inpatient E&M: [id number] [facility] Hosp L3
--- NOTE | 2019-01-23 09:20 | PN_ITS ---
Patient Problems: Active and Suspected Problems Epiglottitis (Acute) Severe sepsis (Acute) Subjective: Patient seen and examined. She remains on the ventilator via the tracheostomy. Patient is heavily sedated and [place] was -4 as he was unresponsive to sternal rub or his name being called. Patient had wished to be transferred to another facility yesterday as he did not think he was getting the help he needed here. [facility] accepted patient but there was no bed overnight. Labs and vitals reviewed. Patient noted to be bradycardic. Sodium is up to 146 and creatinine is down to 1.61 from 1.81 yesterday. Unable to do complains of review of systems as patient is intubated and sedated. Vitals/I&O's: Vital Signs Temp Pulse Resp BP Pulse Ox 97 F L 48 L 16 123/64 H 100 01/23/19 08:00 01/23/19 08:00 01/23/19 08:00 01/23/19 08:00 01/23/19 08:00 Oxygen Delivery Method Mechanical Ventilator Weight: 278 lb 10.629 oz Body Mass Index (BMI) 32.7 Intake and Output for Last 24 Hours 01/21/19 01/22/19 01/23/19 23:59 23:59 23:59 Intake Total 6910.9 / 6910.9 835 / 835 Output Total 2100 / 2100 400 / 400 Balance 4810.9 / 4810.9 435 / 435 General: patient intubated, heavily sedated. RASS score is ~ -4 HEENT: - - intubated via tracheostomy Neck: Supple, No JVD, Negative Carotid Bruits Lungs: Clear to auscultation, Normal air movement, No rhonchi, No wheeze, No rales Cardiovascular: Regular rate, Regular Rhythm, Normal S1, Normal S2, No murmurs Abdomen: Bowel Sounds Present, Soft, Non Tender, Non-Distended, No Hepato-splen omegaly Extremities: No clubbing, No cyanosis, No edema, Capillary Refill Less than 3 Seconds Skin: No rashes, No breakdown Musculoskeletal: No Tenderness to Palpation of Joints or Extremities Lymphatic: No Cervical, Supraclavicular, or Inguinal Adenopathy Neurological: Cranial nerves II-XII grossly intact, Motor Exam 5/5 strength throughout, - - intubated, sedated, RASS score is -4 Psych/Mental Status: Normal Affect, - - in UE restraints Laboratory Results 01/22/19 10:30: Sodium 144, Potassium 4.9, Chloride 112 H, Carbon Dioxide 25.0, Anion Gap 7, BUN 28 H, Creatinine 1.81 H, Estim Creat Clear Calc 73.84, Est GFR (MDRD) Af Amer 56 L, Est GFR (MDRD) Non-Af 46 L, BUN/Creatinine Ratio 15.5, Glucose 119 H, Calcium 7.4 L 01/22/19 10:30: Total Creatine Kinase 583 H, Triglycerides 137 01/23/19 04:45: WBC 15.0 H, RBC 4.11 L, Hgb 12.2 L, Hct 37.3 L, MCV 90.8, MCH 29.7, MCHC 32.7, RDW 13.1, RDW Differential 42.9, Plt Count 172, MPV 11.5, Imm ature Gran % (Auto) 0.300, Neut % (Auto) 78.1 H, Lymph % (Auto) 12.1 L, [place] % (Auto) 9.0, Eos % (Auto) 0.4, Baso % (Auto) 0.1, Absolute Neuts (auto) 11.7 H, Absolute Lymphs (auto) 1.82, Total Counted Not Reportable 01/23/19 04:45: Sodium 146 H, Potassium 4.1, Chloride 114 H, Carbon Dioxide 27.0, Anion Gap 5, BUN 33 H, Creatinine 1.61 H, Estim Creat Clear Calc 83.01, Est GFR (MDRD) Af Amer 64, Est GFR (MDRD) Non-Af 53 L, BUN/Creatinine Ratio 20.5 H, Glucose 98, Calcium 8.1 L Current Medications Acetaminophen (Tylenol) 650 mg PO Q6H PRN PRN PRN Reason: Non-cardiac pain (mod-severe) Albuterol Sulfate (Ventolin Aerosols) 2.5 mg INHALATION Q2H PRN PRN PRN Reason: dyspnea, wheezing Chlorhexidine Gluconate () 15 ml PO BID [facility] Last Admin: 01/22/19 23:02 Dose: 15 ml Enoxaparin Sodium (Lovenox) 40 mg SC DAILY@1000 [facility] Last Admin: 01/22/19 10:30 Dose: 40 mg Hydralazine HCl (Apresoline Iv) 10 mg IV Q4H PRN PRN PRN Reason: SBP > 160 Famotidine 20 mg/ Sodium (Chloride) 10 mls @ 300 mls/hr IV Q12 [facility] Last Admin: 01/22/19 23:00 Dose: 300 mls/hr Fentanyl () 100 mls @ 2.5 mls/hr IV .Q40H [facility] Last Admin: 01/23/19 04:48 Dose: 2.5 mls/hr Ampicillin Sodium/Sulbactam (Sodium 3 gm/ Sodium Chloride) 112 mls @ 150 mls/hr IV Q6 [facility] Last Admin: 01/23/19 05:52 Dose: 150 mls/hr Sodium Chloride () 250 mls @ 15 mls/hr IV .[id number] PRN PRN Reason: SALINE FLUSH Propofol (Diprivan) 1,000 mg in 100 mls @ 7.524 mls/hr CONT INF .Q12H [facility] Last Admin: 01/23/19 07:26 Dose: 7.524 mls/hr Dextrose/Sodium Chloride () 1,000 mls @ 125 mls/hr IV .Q8H [facility] Last Admin: 01/23/19 06:39 Dose: 125 mls/hr Ondansetron HCl (Zofran) 4 mg IV Q8H PRN PRN PRN Reason: NAUSEA/VOMITING Sodium Chloride () 5 - 15 ml IV UD PRN PRN Reason: SALINE FLUSH Last Admin: 01/23/19 04:18 Dose: 10 ml Medical Necessity - Tobacco Use Smoking Status: Current some day smoker Tobacco Use: Cigarettes Assessment/Plan All Active Problems Epiglottitis (Acute) Severe sepsis (Acute) 1. Severe sepsis due to acute epiglottitis * patient intubated via emergent tracheostomy as ENT and anesthesia were unable to intubate him * wbc down to 15 today, from 33.2 * on IV unasyn * blood cultures still pending. * * 2. Acute hypoxic respiratory failure due to severe epiglottitis with airway obstruction * s/p emergent tracheostomy * CT soft tissue head/neck showed thickened epiglottitis with gas and multiple prominence of the lingual tonsil as well as mild bilateral cervical adenopathy. * currently intubated and sedated. RASS score is -4; patient wanted to be heavily sedated yesterday as he said he got very agitated and felt like he could not breathe when he was awake and alert. * doll surgeon on board * sedated with fentanyl and propofol * 3. Hyperkalemia: resolved. K is 4.1 today. * 4. SHARON, likely prerenal * Cr is 1.61 today, down from 1.81 yesterday * Monitoring creatinine with hydration. 5. SUbclinical hyperthyroidism: * TSH was 0.23, free T4 was 0.94. * Will get repeat labs once acute illness is over. * 6. Lactic acidosis:likely due to hypotension. Resolved. 7. Hypertension: controlled. on IV hydralazine prn * 8.GERD: on famotidine. DVT prophylaxis: Lovenox-renal dosing Disposition: awaiting transfer to [facility] Medical ICU at patient's request Code Visit Inpatient E&M: [id number] [facility] Hosp L3
--- NOTE | 2019-01-23 09:26 | CM.UR ---
Rounds not preformed on this patient today. Patient asked to be transferred. Awaiting a bed at [facility]. Hieu Brown RN, CCM.
[2019-01-23] MEDS: Enoxaparin 40 MG/0.4 ML Syringe SC (09:37)
[2019-01-23] MEDS: Chlorhexidine 15 ML PO (09:37)
--- NOTE | 2019-01-23 10:43 | NURSING ---
09 bilingual secretary called [facility] transfer line to ask for ETA on bed for patient. Transfer line leather repairer stated all hospitals are at capacity so it won't be anytime soon. Girlfriend updated at the bedside with this information.
--- NOTE | 2019-01-23 11:03 | PCM.PROGNOTE ---
Patient Problems: Active and Suspected Problems Epiglottitis (Acute) Severe sepsis (Acute) Subjective: x - Physical Exam General: - - sedated on the ventilator Neck: - - #8DCT in place Vital Signs Temp Pulse Resp BP Pulse Ox 97 F L 46 L 16 122/71 H 100 01/23/19 08:00 01/23/19 10:00 01/23/19 10:00 01/23/19 10:00 01/23/19 10:00 Oxygen Delivery Method Mechanical Ventilator Weight: 126.4 kg Body Mass Index (BMI) 32.7 Intake and Output for Last 24 Hours 01/21/19 01/22/19 01/23/19 23:59 23:59 23:59 Intake Total 6910.9 / 6910.9 835 / 835 Output Total 2100 / 2100 400 / 400 Balance 4810.9 / 4810.9 435 / 435 Laboratory Tests Past 24 Hrs 01/22/19 01/23/19 01/23/19 10:30 04:45 04:45 WBC 15.0 H RBC 4.11 L Hgb 12.2 L Hct 37.3 L MCV 90.8 MCH 29.7 MCHC 32.7 RDW 13.1 RDW Differential 42.9 Plt Count 172 MPV 11.5 Immature Gran % (Auto) 0.300 Neut % (Auto) 78.1 H Lymph % (Auto) 12.1 L [place] % (Auto) 9.0 Eos % (Auto) 0.4 Baso % (Auto) 0.1 Absolute Neuts (auto) 11.7 H Absolute Lymphs (auto) 1.82 Total Counted Not Reportable Sodium 146 H Potassium 4.1 Chloride 114 H Carbon Dioxide 27.0 Anion Gap 5 BUN 33 H Creatinine 1.61 H Estim Creat Clear Calc 83.01 Est GFR (MDRD) Af Amer 64 Est GFR (MDRD) Non-Af 53 L BUN/Creatinine Ratio 20.5 H Glucose 98 Calcium 8.1 L Total Creatine Kinase 583 H Triglycerides 137 Medical Necessity - Tobacco Use Smoking Status: Current some day smoker Tobacco Use: Cigarettes Assessment/Plan All Active Problems Epiglottitis (Acute) Severe sepsis (Acute) POD#2 s/p emergent tracheostomy after failed intubation in the ED for supraglottitis -labs, WBC all improving from yesterday, resolving signs of sepsis -[address] -plan is to scope his larynx tomorrow for potential decannulation. if he still has significant airway edema, i will switch him to a 6 cuffless trach with a speaking valve. if his larynx looks good, we can decannulate him in the ICU. of note, the patient has been incredibly combative and has demanded to be transferred. he has no current pulmonary need for mechanical ventilation at this time, but staff felt he was a danger to them. i do not have the ability to scope him if he is asleep and not tolerating secretions. optimally, he would be removed from all sedation today in order to have a good assessment of his airway tomorrow.
--- NOTE | 2019-01-23 17:00 | NURSING ---
Report called to [facility] COLETTE Dempsey [id number] [phone]
--- NOTE | 2019-01-23 18:04 | NURSING ---
[facility] TRANSPORT ARRIVED AT 1745 PACKING UP PATIENT AT 1800 TAKEN OFF OF OUR MONITOR AND PUT ON THEIR EQUIPMENT BEDSIDE HANDOFF GIVEN TO [facility] AVIATION MEDICINE SPECIALIST
--- NOTE | 2019-01-24 07:08 | DS.PCM_ITS ---
Discharge Date and Diagnosis Date of Admission: 01/21/19 Date of Discharge: 01/23/19 - Primary Discharge Diagnosis acute hypoxic respiratory failure due to acute epiglottitis and supraglottitis severe sepsis due to epiglottitis SHARON hyperkalemia lactic acidosis - Secondary Discharge Diagnosis Chronic Problems Tobacco use (Chronic) Obesity (BMI 30-39.9) (Chronic) History of ETOH abuse (Chronic) Hypertension (Chronic) Hospital Course and Treatment Imaging Results: Diagnostic Data Soft Tissue Neck CT 01/21/19 18:30 IMPRESSION: Thickened epiglottis with gas which could be infectious or traumatic in etiology. Mild prominence of the lingual tonsil. Mild bilateral cervical adenopathy. Electronically Signed: Arnold Valentin DO at 19:50 EDT Tel [phone], Service support , ADDENDUM: 01/21/192002 IMPRESSION: Thickened epiglottis with gas which could be infectious or traumatic in etiology. Mild prominence of the lingual tonsil. Mild bilateral cervical adenopathy. N.B. : The above information has been verbally conveyed by Arnold Valentin DO to Kenneth Early MD, on 01/21/2019 19:56:15 (ET). Electronically Signed: Arnold Valentin DO at 19:50 EDT Tel [phone], Service support , Liver Ultrasound 01/22/19 05:55 IMPRESSION: Hepatomegaly and fatty infiltration of the liver. Electronically Signed: Alfonso Sahu, at 11:30 EDT , Service support , ENT- Dr Richards Science And Operations Officer- Dr Sammy Vargas Procedures: - - tracheostomy-emergent Summary of Care Provided: The patient is a 33 year old M with past medical history as listed was admitted through the ED with a complaint of a sore throat. Patient had initially come to the ED complaining of sore throat earlier in the day and was discharged with a course of steroids. Symptoms however worsened and so he came back to the ED. Was in the ED was noted to have worsening muffling of his voice as well as difficulty swallowing and handling secretions. Labs showed elevated white cell count of 33,000 and phosphorus was low at 1.8. Lactic acid was elevated at 2.5. CT of the soft tissue neck revealed a thickened epiglottis with gas along with mild prominence of the lingual tonsil and mild bilateral cervical lymphadenopathy. On account of his worsening condition and for concerns for his airway, plans were made to secure his airway with an elective intubation. However, anesthesia and ENT could not intubate patient. An LMA was inserted and patient was sent to the operating room for emergent tracheostomy by ENT. He was then admitted to the ICU for further management. He was started on IV Zosyn, which was subsequently switched to IV Unasyn. It was also noted to have AK I with creatinine of 1.86 with a baseline being within normal limits. Patient was hydrated for this. Science And Operations Officer was also consulted. White cell count trended down to 15. Blood cultures were still pending at time of discharge. Patient became more agitated and stated that he felt he could not breathe. It was explained to patient that this was due to the edema in his airway and hence that is why he had the emergent tracheostomy in. Patient however requested to be transferred to another facility as he did not that he was getting the help he needed here. [facility] ICU agreed to accept patient. Also patient was awaiting transfer, she requested that he be heavily sedated so that he could not feel anything as when he was awake he felt like he was freaking out. Patient was therefore heavily sedated with fentanyl and propofol. He was transferred to the [facility] ICU on 01/23/2019. Patient was seen and examined prior to discharge. He was heavily sedated and RA SS score was -4. Unable to do review of systems on account of heavy sedation. o/e: Vital Signs Height 6 ft 5 in Weight: 278 lb 10.629 oz Weight in Pounds 278.7 lbs Pulse Ox 100 Temperature 98 F Pulse Rate 55 Respiratory Rate 16 Blood Pressure [BP] 130/76 Blood Pressure 127/72 Blood Pressure Position [BP] Semi-Fowlers Blood Pressure Position Semi-Fowlers []General: patient intubated, heavily sedated. RASS score is ~ -4 HEENT: - - intubated via tracheostomy Neck: Supple, No JVD, Negative Carotid Bruits Lungs: Clear to auscultation, Normal air movement, No rhonchi, No wheeze, No rales Cardiovascular: Regular rate, Regular Rhythm, Normal S1, Normal S2, No murmurs Abdomen: Bowel Sounds Present, Soft, Non Tender, Non-Distended, No Hepato- splenomegaly Extremities: No clubbing, No cyanosis, No edema, Capillary Refill Less than 3 Seconds Skin: No rashes, No breakdown Musculoskeletal: No Tenderness to Palpation of Joints or Extremities Lymphatic: No Cervical, Supraclavicular, or Inguinal Adenopathy Neurological: Cranial nerves II-XII grossly intact, Motor Exam 5/5 strength throughout, - - intubated, sedated, RASS score is -4 Psych/Mental Status: Normal Affect, - - in UE restraints Patient transferred to [facility] ICU. - Physical Exam Vital Signs Temp Pulse Resp BP Pulse Ox 98 F 55 L 16 130/76 H 100 01/23/19 16:00 01/23/19 17:00 01/23/19 17:00 01/23/19 17:00 01/23/19 17:00 Oxygen Delivery Method Mechanical Ventilator Weight: 278 lb 10.629 oz Body Mass Index (BMI) 32.7 Intake and Output for Last 24 Hours 01/22/19 01/23/19 01/24/19 23:59 23:59 23:59 Intake Total 6910.9 / 6910.9 1838 / 1838 Output Total 2100 / 2100 1150 / 1150 Balance 4810.9 / 4810.9 688 / 688 Home Medications: Medications to take at Discharge Amox/Clavulanate Tablet [Augmentin Tablet] 875 mg PO Q12H #20 tab 01/21/19 Dexamethasone [Decadron] 4 mg PO BIDCM #6 tab 01/21/19 Ondansetron [Zofran Odt] 4 mg PO Q8H PRN PRN #10 tab 01/21/19 Primary Care Physician: Care Physician,No Primary [Primary Care Provider] - Please follow up with your Primary Care Physician in: one week Disposition: [facility] - [facility] Medical ICU Minutes spent on discharge:: 50 Patient Condition:: Fair Medical Necessity - Tobacco Use Smoking Status: Current some day smoker Tobacco Use: Cigarettes Meaningful Use Info Meaningful Use Diagnoses (Choose all that apply): None applicable Code Visit Inpatient E&M: [id number] [facility]
[2019-01-24 09:16] LABS: Hep B Surface Antibodies Reactive (.)
[2019-01-25 09:12] LABS: Pathologist Review Reviewed
[2019-01-25 09:13] LABS: Pathologist Review Reviewed
== END 2019-01-23 18:10 | disposition short-term general hospital (02) | DRG 4 ==
LOC: ED 18:46 → ICU 21:53
PROVIDERS: Internal Medicine Critical Care Medicine; Otolaryngology; Admitting Provider Family Medicine; Emergency Provider Emergency Medicine; Visit Provider Student in an Organized Health Care Education/Training Program
PROC: 0B110F4 Bypass Trachea to Cutaneous with Tracheostomy Device, Open Approach (ICD-10-PCS; principal; 2019-01-21 21:10)
DX: A41.9 Sepsis, unspecified organism (principal); J05.11 Acute epiglottitis with obstruction; J96.01 Acute respiratory failure with hypoxia; J04.31 Supraglottitis, unspecified, with obstruction; N17.9 Acute kidney failure, unspecified; E87.2 Acidosis; R65.20 Severe sepsis without septic shock; F17.210 Nicotine dependence, cigarettes, uncomplicated; E87.5 Hyperkalemia; E83.39 Other disorders of phosphorus metabolism; E66.9 Obesity, unspecified; I10 Essential (primary) hypertension; F10.11 Alcohol abuse, in remission; Z68.32 Body mass index [BMI] 32.0-32.9, adult
CPT/HCPCS: 36600; 70490; 76705; 80048; 80053; 80307; 82550; 82803; 83605; 83735; 84100; 84439; 84443; 84478; 85025; 86704; 86705; 86706; 86708; 86709; 86803; 87040; 87340; 94002; 94003; 97803; 99251; 99283; J7030; J7040; J7050; A4216; G0463; J0295; J0696; J3490; J7799

== ENCOUNTER 2019-02-10 19:35 | Emergency (ER) | payer OTHER, SELFPAY ==
[2019-01-21 22:37] VITALS: BMI 32.7
[2019-02-10 19:36] VITALS: BP 187/128; PULSE 98; RESP 18; TEMP 36.7; O2SAT 97; BMI 28.4
[2019-02-10 20:01] VITALS: PULSE 91; RESP 18; O2SAT 98
[2019-02-10] MEDS: DiphenhydrAMINE 50 MG/ML Syringe IV (20:15)
[2019-02-10] MEDS: Famotidine 20 MG Tablet PO (20:15)
[2019-02-10] MEDS: MethylPREDNISolone 125 MG/2 ML Vial IV (20:15)
[2019-02-10 23:12] VITALS: PULSE 80; RESP 18; O2SAT 100
--- NOTE | 2019-02-10 23:33 | ED.VISSUMM ---
- ER Visit Summary Date of Service: 02/10/19 Chief Complaint: Allergic reaction History of Present Illness: The patient is a 33 M sudden hives, throat swelling 1 hour and half prior to arrival. States he is sitting on the couch when symptoms occurred. No changes in soaps or detergents. No new medications. Reported in the records, he had a episode of epiglottitis less than a month ago requiring emergent trach, the tracheostomy was removed 12 days ago. He was admitted here in the hospital and transferred to [facility]. He states he is intermittently taking his antibiotics however finished the last dose today. Denies similar symptoms to his epiglottitis, no fevers. No medicines taken. Physical Examination: General: Alert and oriented ?3, no acute distress HEENT: Normocephalic, atraumatic. Moist mucosa membranes. No swelling of lips or tongue. Airway patent. Neck: supple, nontender. Tracheostomy orifice clean, dry, intact, no stridor Cardiovascular: Regular rate and rhythm, no murmurs Respiratory: Normal breath sounds, symmetric, no distress Abdomen: Soft, nontender, nondistended Extremities: Nontender, no edema, pulses intact ?4 Neuro: no focal neurological deficits. Skin: Hives upper torso chest and back Test Results: [] Emergency Department Course and Treatment: Patient vital signs stable, generalized allergic reaction unclear source at this time. IV was placed given Solu-Medrol Benadryl and Pepcid. Placed on a monitor. Multiple re-evaluations, symptoms improved, hives improved. We placed on an additional course of prednisone and Pepcid, he will use Benadryl as needed. Epinephrine pen as needed. Follow-up as an outpatient. States he needs to make the appointment with ENT follow-up. Signs and symptoms discussed to return. All questions were answered. Treatment Plan: [] Disposition: Discharge Impression: Anaphylaxis unclear etiology This note was generated with [employer] dictation software. It may contain incorrect words, spelling, and punctuation that were not noted in review of the chart prior to signing ED Disposition - Plan for ED Patient: Disposition: Home or Assisted Living Diagnosis: Anaphylaxis Instructions: ED Allergic Reaction General Other Prescriptions: Epinephrine [Epipen] 0.3 mg IJ PRN PRN #1 auto.injct PRN Reason: anaphalaxis predniSONE tablet 60 mg PO DAILY #12 tablet Famotidine [Pepcid] 20 mg PO BID #10 tablet Referrals: Care Physician,No Primary [Primary Care Provider] - Quinn Gordon III, MD [STAFF PHYSICIAN] - 5-7 Days
[2019-02-11 00:46] VITALS: BP 171/117; PULSE 89; RESP 15; O2SAT 100
--- NOTE | 2019-02-11 00:47 | ED.RN ---
PT AND FAMILY VERBALIZE UNDERSTANDING OF WRITTEN AND VERBAL DISCHARGE AND EPIPEN INSTRUCTIONS.
== END 2019-02-11 00:48 | disposition home or self-care (01) ==
PROVIDERS: Emergency Provider Emergency Medicine
DX: T78.2XXA Anaphylactic shock, unspecified, initial encounter (principal); Z72.0 Tobacco use
CPT/HCPCS: 96374; 96375; 99284; J7030; A4216

== ENCOUNTER 2019-10-19 00:15 | Emergency (ER) | payer SELFPAY ==
[2019-10-19 00:15] VITALS: BP 128/85; PULSE 86; RESP 26; TEMP 36.2; O2SAT 100; BMI 31.5
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
[2019-10-19] MEDS: Ondansetron 4 MG/2 ML Vial IV (00:44)
[2019-10-19] MEDS: Morphine 4 MG/ML Syringe IV (00:44)
[2019-10-19] MEDS: 0.9% Normal Saline 1,000 ML 150 ML IV (00:44)
[2019-10-19 01:47] VITALS: BP 148/100
[2019-10-19 02:00] VITALS: BP 126/76; PULSE 88; RESP 12; O2SAT 97
[2019-10-19 03:04] VITALS: BP 134/82; PULSE 80; RESP 16; O2SAT 96
== END 2019-10-19 03:28 | disposition home or self-care (01) ==
PROVIDERS: Emergency Provider Emergency Medicine
DX: S53.402A Unspecified sprain of left elbow, initial encounter (principal); S83.92XA Sprain of unspecified site of left knee, initial encounter; V49.88XA Car occupant (driver) (passenger) injured in other specified transport accidents, initial encounter; Y93.89 Activity, other specified; Y92.410 Unspecified street and highway as the place of occurrence of the external cause; F17.200 Nicotine dependence, unspecified, uncomplicated
CPT/HCPCS: 70450; 71046; 72125; 73080; 73564; 74176; 96361; 96374; 96375; 99285; J7030; A4216; J2405

== ENCOUNTER 2020-04-10 15:32 | Emergency (ER) | payer SELFPAY ==
[2020-04-10 15:33] VITALS: BP 180/109; PULSE 113; RESP 22; TEMP 36.7; O2SAT 98; BMI 37.2
[2020-04-10 15:39] VITALS: PULSE 105; RESP 24; O2SAT 98
--- NOTE | 2020-04-10 15:42 | ED.DCSUM_ITS ---
History of Present Illness Chief Complaint: Allergic Reaction Informant: Patient Onset: Today Narrative: Patient states that approximately 1 hour ago he was coming out from his girlfriend's house when began to have hives and itching of his arms and head. He states now his lips are swollen. He states he feels short of breath. He denies any known allergens. He does not believe he got stung by any insects. He states he did not recall eating or drink anything out of the ordinary. He does not take any medications. Past Medical History - Allergies and Home Meds Allergies/Adverse Reactions: Allergies No Known Allergies Allergy (Verified 10/19/19 00:24) Primary Care Physician: Care Physician,No Primary [Primary Care Provider] - Surgical History: cholecystectomy, tonsillectomy Smoking Status: Current every day smoker - Family History Maternal Family History: Reports: Diabetes, Heart Disease, Hypertension Paternal Family History: Reports: Diabetes, Heart Disease, Hypertension Review of Systems General: Denies: Chills, Fever, Sweats Eyes: Denies: Visual changes - bilaterally, Diplopia ENT: Denies: Rhinorrhea, Sore throat Cardiovascular: Denies: Chest pain, Palpitations Respiratory: Reports: Dyspnea. Denies: Cough, Dyspnea on exertion Gastrointestinal: Denies: Abdominal pain, Nausea, Vomiting, Diarrhea, Melena, Hematochezia Genitourinary: Denies: Dysuria, Hematuria, Frequency Musculoskeletal: Denies: Back pain, Extremity Pain Skin: Denies: Rash, Wounds Neurological: Denies: Headache, Weakness, Numbness Allergy: Reports: Uticaria, Swelling of the mouth Physical Exam Vital Signs/Narrative: Vital Signs Temp Pulse Resp BP Pulse Ox 04/10/20 15:33 98.1 F 113 H 22 H 180/109 H 98 Inital Vital Signs reviewed: Yes General: Well nourished, Well developed, No Acute Distress Head: Normocephalic, Atraumatic Eyes: Perrl, EOMI ENT: Moist mucous membranes, No rhinorrhea Neck: Supple, Nontender Cardiovascular: Regular rate, Regular rhythm, No murmurs Respiratory: CTA bilaterally, Chest nontender, - - Patient is dyspneic but not wheezing or in distress. Abdomen: Soft, Nontender, Nondistended, Normal bowel sounds Back: Nontender, Normal Inspection Extremities: Nontender, No edema Skin: - - Patient has urticaria from the neck up. There is some mild lip swelling and tongue swelling. He has swelling of the upper eyelids. Neurological: Alert, Oriented x3, Cranial nerves II-XII grossly intact, Normal Strength, Normal Sensation Psychological: - - Anxious Diagnostic/Tx/Re-eval - Medical Decision Making IV established patient received Pepcid Benadryl and Solu-Medrol. He also received subcu epinephrine. He was watched on the monitor. Reassessed him at 1620 hrs. Hives are improved as is facial swelling. He will continue to be monitored. After about 3 hours post epinephrine the patient is significantly improved. He will be placed on Benadryl Pepcid and prednisone at home. He is given return instructions and he notes understanding - Critical Care Time Critical care time (excluding procedures): 30-74 minutes - 35 minutes, Discussing w/Patient &/or Family/[employer], Performing Direct Patient Care at Bedside ED Disposition - Plan for ED Patient: Disposition: Home or Assisted Living Diagnosis: Acute anaphylaxis Instructions: ED Anaphylaxis General Prescriptions: Prednisone [Deltasone] 60 mg PO DAILY #12 tab Prescription Printed Epinephrine [Epipen] 0.3 mg IJ X1 PRN #1 auto.injct PRN Reason: Anaphylaxis Prescription Printed Famotidine [Pepcid] 20 mg PO BID #8 tab Prescription Printed Referrals: Jeannine Payan MD [STAFF PHYSICIAN] - (for primary care) Additional Instructions: I would also recommend Benadryl 25 mg every 8 hours for the next 3 days.
[2020-04-10] MEDS: MethylPREDNISolone 125 MG/2 ML Vial IV (15:44)
[2020-04-10] MEDS: DiphenhydrAMINE 50 MG/ML Syringe IV (15:45)
[2020-04-10] MEDS: Famotidine 200 MG/20 ML MDV 20 MG in 0.9% Normal Saline (Pres. free 8 ML 300 MG IV (15:49)
[2020-04-10] MEDS: 0.9% Normal Saline 1,000 ML 150 ML IV (15:51)
[2020-04-10 16:33] VITALS: BP 165/104; PULSE 83; RESP 21; O2SAT 98
[2020-04-10 17:36] VITALS: BP 176/101; PULSE 83; RESP 18; O2SAT 98
[2020-04-10 18:00] VITALS: BP 152/88; PULSE 87; RESP 18; O2SAT 97
[2020-04-10 19:19] VITALS: BP 165/85; PULSE 88; RESP 16; O2SAT 98
== END 2020-04-10 19:21 | disposition home or self-care (01) ==
PROVIDERS: Emergency Provider Emergency Medicine
DX: T78.2XXA Anaphylactic shock, unspecified, initial encounter (principal); F17.200 Nicotine dependence, unspecified, uncomplicated
CPT/HCPCS: 96361; 96372; 96374; 96375; 99285; J7030; A4216; J3490

== ENCOUNTER 2020-05-05 19:37 | Emergency (ER) | payer SELFPAY ==
[2020-05-05 19:39] VITALS: BP 209/134; PULSE 99; RESP 17; TEMP 35.6; O2SAT 99; BMI 36.9
[2020-05-05] MEDS: DiphenhydrAMINE 50 MG/ML Syringe IV (19:41)
[2020-05-05 19:55] VITALS: BP 184/89; PULSE 96; O2SAT 99
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
[2020-05-05] MEDS: MethylPREDNISolone 125 MG/2 ML Vial IV (20:01)
[2020-05-05 21:37] VITALS: PULSE 90; RESP 18; O2SAT 97
[2020-05-05] MEDS: DiphenhydrAMINE 50 MG/ML Syringe 25 MG IV (23:08)
[2020-05-05 23:10] VITALS: BP 183/97; PULSE 91; RESP 18; O2SAT 98
--- NOTE | 2020-05-05 23:32 | ED.DCSUM_ITS ---
- ER Visit Summary Date of Service: 05/05/20 Chief Complaint: Allergic reaction History of Present Illness: The patient is a 34 M who presents with an allergic reaction that occurred today. Patient states this began rather suddenly. Patient states he has a history of allergic reactions but has not been able to find the trigger of his allergic reactions. Patient states he felt like his throat was closing. Patient admits to some generalized itching. Patient admits to some difficulty breathing and difficulty swallowing. Patient denies any hives. Patient denies any new exposures. Patient denies any chest pain. Patient admits to nausea but denies any vomiting. 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 Physical Examination: Vital signs are stable. Patient is afebrile. Patient is in no acute distress. Oral mucosa is pink and moist. Oropharynx is clear. Airway is patent. Neck is supple. Trachea is midline. There is no JVD. Heart was regular rate and rhythm. Lungs are clear and equal bilaterally. There is no wheezing noted. Abdomen is soft. Bowel sounds are normal. There is no tenderness. Cranial nerves II through XII are intact. There are no focal motor or sensory deficits noted. Skin is warm dry. There is no urticaria noted. There is no erythema. Test Results: Soft tissue neck x-ray was obtained due to the patient's history of epiglottitis. This was normal. This was interpreted by the radiologist and reviewed by myself. Emergency Department Course and Treatment: Patient was given an EpiPen initially. Patient was given Solu-Medrol and Benadryl. Patient states he still felt like he was itching on reevaluation. Patient was given a repeat dose of Benadryl. Patient was given a prescription for prednisone. Patient was instructed to follow-up with his primary care physician in 3 to 5 days. Patient understood and was agreeable with the plan. All questions were answered. Disposition: Discharge home Impression: 1. Allergic reaction This note was generated with [employer] dictation software. It may contain incorrect words, spelling, and punctuation that were not noted in review of the chart prior to signing ED Disposition - Plan for ED Patient: Disposition: Home or Assisted Living Diagnosis: Allergic reaction Instructions: ED General Allergic Reactions Prescriptions: Prednisone [Deltasone] 60 mg PO DAILY #15 tab Prescription Printed Referrals: Care Physician,No Primary [Primary Care Provider] - 3-5 Days
[2020-05-05 23:56] VITALS: BP 175/87; PULSE 89; RESP 18; TEMP 37.1; O2SAT 99
== END 2020-05-05 23:57 | disposition home or self-care (01) ==
PROVIDERS: Emergency Provider Emergency Medicine
DX: T78.40XA Allergy, unspecified, initial encounter (principal); X58.XXXA Exposure to other specified factors, initial encounter; E66.9 Obesity, unspecified; Z68.36 Body mass index [BMI] 36.0-36.9, adult; Z72.0 Tobacco use
CPT/HCPCS: 70360; 96372; 96374; 96375; 96376; 99282; J7030; A4216

== ENCOUNTER 2023-07-15 10:11 | Emergency (ER) | payer MEDICAID, SELFPAY ==
[2023-07-15] VITALS (11 sets, daily range): BP systolic 103–194; BP diastolic 67–141; PULSE 69–90; RESP 15–24; TEMP 36.1; O2SAT 93–100; BMI 38.7
--- NOTE | 2023-07-15 10:27 | ED.VIS.CHEST ---
HPI History of Present Illness Chief Complaint: Chest Pain Informant: patient and family Narrative Narrative: Brought in by EMS sudden pain left upper back with worsening pain with deep breaths into his left chest. Patient status post 1 coronary stent this past Friday over at [facility]. He went for exertional dyspnea for 3 weeks. Unclear where the stent was placed. He is on aspirin and prasugrel. He was discharged 2 days ago. Grandmother present. He did take his morning aspirin and prasugrel. Pharmacy did not have his statin or his Entresto medication currently. Additionally reports bright red blood in his stools with 3 episodes this morning. Denies abdominal pain. Remote tobacco quit when he left the hospital. Unclear of any family history of MIs at young age. He is not a diabetic. He was told if he has back pain in his chest to go to the emergency department. Medications reviewed 10 mg prasugrel baby aspirin, Coreg 6.25 twice daily, simvastatin 40 mg. Entresto. PE Risk Factors: Positive for Recent Travel[facility] Home Medications aspirin 81 mg chewable tablet (Sportube Chewable Low Dose Aspirin) 1 tab PO DAILY HEART HEALTH 07/15/23 [History Last Taken 07/15/23] atorvastatin 40 mg tablet 40 mg PO QHS CHOLESTEROL 07/15/23 [History Last Taken 07/14/23] carvedilol 6.25 mg tablet 6.25 mg PO BID HEART 07/15/23 [History Last Taken 07/15/23] furosemide 40 mg tablet 40 mg PO DAILY FLUID 07/15/23 [History Last Taken 07/15/23] prasugrel 10 mg tablet 10 mg PO DAILY HEART 07/15/23 [History Last Taken 07/15/23] sacubitril 24 mg-valsartan 26 mg tablet (Entresto) 1 tab PO BID HEART FAILURE 07/15/23 [History Last Taken 07/15/23] Allergy/AdvReac Type Severity Reaction Status Date / Time No Known Allergies Allergy Verified 07/15/23 10:16 Surgical History H/O heart artery stent Social History Smoking Status: Current every day smoker tobacco type: cigarettes ROS ROS ED Constitutional Constitutional ED: Denies chills, fever(s) or sweats Eyes Eyes: Denies change in vision ENT ENT ED: Denies dysphagia or sore throat Cardiovascular Cardiovascular: Reports chest pain; Denies leg edema, palpitations or racing heartbeat Respiratory/Chest Respiratory/Chest: Reports dyspnea; Denies cough or dyspnea on exertion Gastrointestinal Gastrointestinal: Reports nausea; Denies abdominal pain, diarrhea or vomiting Genitourinary Genitourinary ED: Denies dysuria, hematuria or urinary frequency Musculoskeletal Musculoskeletal: Denies back pain, extremity pain or neck pain Integumentary Denies rash or wounds Neurologic Neurologic: Denies headache(s), paresthesias or weakness EXAM Physical Exam Const Vital Signs: 07/15/23 10:12 07/15/23 10:35 07/15/23 12:05 Temperature 97.0 F L Temperature Source Temporal Pulse Rate 83 80 Respiratory Rate 22 H 24 H Blood Pressure 128/74 H 183/103 H Blood Pressure Mean 92 129 Pulse Ox 100 99 Oxygen Delivery Method Room Air Room Air Room Air Positive well nourished and well developed General Appearance ED: well developed and NAD HEENT Reports moist mucous membranes normocephalic and atraumatic Eyes PERRL, EOMs intact bilaterally and conjunctivae normal General Eye ED: Yes normal appearance of both eyes Neck no lymphadenopathy and supple General: Negative for tenderness Chest Wall Chest: Negative for tenderness Resp normal respiratory effort and normal air movement Effort and Inspection: symmetric chest movement; Negative for respiratory distress Cardio regular rate, regular rhythm and no murmurs Peripheral Pulses: pulses 2+ throughout GI normal to inspection, nondistended, normoactive bowel sounds and non-tender Palpation: Negative for guarding or rebound tenderness present Rectal Exam: heme positive stool Back/Spine no CVA tenderness and no thoracic nor lumbar tenderness Extremity normal to inspection General Extremety ED: Negative for edema or tenderness General Extremity: Negative for edema Neuro oriented x3 and no sensory deficits noted Sensorium / Orientation: awake and alert Skin no rashes or lesions noted and no wounds Heart Score History: Moderately Suspicious ECG: Nonspecific Repolarization Age: </= 45 years Risk Factors: >/= 3 Risk Factors or History of CAD Troponin: >1 - <3 Normal Limit Score: 5 MDM MDM MDM Narrative Medical decision making narrative: Interventions / MDM: Differential diagnosis: Diagnosis considered but do not suspect: N/A My EKG interpretation: Sinus rate of 80, no ST changes T wave inversion anterior lateral. No old for comparison. Imaging independently reviewed and interpreted by myself: Chest x-ray 1 view: No acute process. CTA chest abdomen pelvis: No PE or dissection. Is also read by radiology. External documents reviewed: Obtaining records from [facility], cath report 95% proximal RCA, 40% distal RCA 40% left circumflex. EF was 30 to 35%. Test considered but not ordered:N/A ED course: EKG T wave inversion no old for comparison. Status post stenting to right RCA. Chest pain with deep breaths. Cardiac work-up initiated along with D-dimer for further evaluation. Also reporting rectal bleeding since this morning. Work-up Labs initial troponin 141. Hemoglobin 16 with stable. Attempted to obtain records through [facility] however unable to obtain there therefore records were requested. Treated morphine Zofran. D-dimer returned negative. When records were obtained noting from July 11 day of his cath his peak troponin at that time was 74 unable to get anything further. This was doubled his value today. Hemoccult did return guaiac positive. I did speak with on-call curator of collections Dr. Fernandez feels reasonable to observe him while we cycle troponins and potential GI consult. I did reach out speak with hospitalist Dr. Peña who patient's recent history. He evaluated in the ED along with Dr. Fernandez, who was also in the department. They are concerned with pain with deep breath blood pressure systolic 190s, they recommended CT angiogram to rule out dissection. With his rectal bleeding add additional abdomen pelvis. They also recommended transfer back to [facility] with his recent procedure being performed there. 1440: Patient CT scans returned negative. Reevaluation pain with deep breaths after returning from CT. His troponin rechecked at 2 hours trending down to 120. Additional morphine was given. Hemoccult returned positive. Recommended transfer from hospitalist and cardiology, I did speak with transfer line at [facility] and spoke with hospitalist Dr. Rodriguez, updated patient's history and findings. He is excepted to their facility. No additional anticoagulants due to rectal bleeding. Re-evaluation: stable Disposition discussed with patient/family/significant other: Case discussed with consulting clinician: Cardiology, Dr. Fernandez, hospitalist Dr. peña, [facility] hospitalist Dr. Rodriguez This note was generated with [employer]ocks[employer] software. It may contain incorrect words, spelling, and punctuation that were not noted in checking the note before signing. Lab Data Labs: Laboratory Results - last 24 hr 07/15/23 07/15/23 10:03 12:55 WBC 10.0 RBC 5.65 Hgb 16.5 Hct 46.4 MCV 82.1 MCH 29.2 MCHC 35.6 RDW Std Deviation 37.5 RDW Coeff of Linus 12.8 Plt Count 286 MPV 11.6 Immature Gran % (Auto) 0.500 Neut % (Auto) 64.7 Lymph % (Auto) 18.6 L [place] % (Auto) 7.6 Eos % (Auto) 7.5 H Baso % (Auto) 1.1 H Absolute Neuts (auto) 6.5 Absolute Lymphs (auto) 1.87 Nucleated RBC % 0 PT 12.7 INR 1.0 APTT 27.7 D-Dimer Quant (PE/DVT) 0.37 Sodium 141 Potassium 4.2 Chloride 109 H Carbon Dioxide 20.0 L Anion Gap 12 BUN 17 Creatinine 1.30 Estim Creat Clear Calc 101.56 Est GFR (MDRD) Af Amer 80 Est GFR (MDRD) Non-Af 66 BUN/Creatinine Ratio 13.1 Glucose 138 H Calcium 9.3 Troponin I High Sens 141 H* 120 H Radiography Diagnostic Testing: Clinical Impression(s) from Imaging Studies Chest X-Ray 07/15/23 11:20 IMPRESSION: No radiographic evidence of acute cardiopulmonary disease. Electronically Signed: Harry England MD at 12:08 EDT , Chest CTA 07/15/23 13:15 IMPRESSION: Normal CTA chest examination, without a demonstrated pulmonary embolism or arterial dissection. Electronically Signed: Alfonso Sahu MD at 14:14 EDT , Abdomen/Pelvis CT 07/15/23 13:19 IMPRESSION: No focal acute inflammatory process. Electronically Signed: Harry England MD at 14:10 EDT , Critical Care Time Critical Care Time: Yes Critical care time (excluding procedures): 30-74 minutes, Discussing w/Patient &/or Family/Custom Bow Maker, Discussing w/Consultants, Arranging Admission or Transfer, Performing Direct Patient Care at Bedside and - (45 minutes) Discharge Plan Triage Chief Complaint: Chest Pain ED Provider: Jose Dunn Dx/Rx/DC Orders Clinical Impression: H/O heart artery stent, CAD (coronary artery disease), Rectal bleed, Chest pain Prescriptions: No Action furosemide 40 mg tablet 40 mg PO DAILY carvedilol 6.25 mg tablet 6.25 mg PO BID prasugrel 10 mg tablet 10 mg PO DAILY aspirin [Matt Chewable Aspirin] 81 mg tablet,chewable 1 tab PO DAILY atorvastatin 40 mg tablet 40 mg PO QHS Entresto 24-26 mg tablet 1 tab PO BID Primary Care Provider: Care Physician,No Primary Referrals: Care Physician,No Primary [Primary Care Provider] - Disposition Disposition: DC/Tx to Another Type of HCF
--- NOTE | 2023-07-15 10:35 | EKG12_ITS ---
Test Reason : CHEST PAIN Blood Pressure : / mmHG Vent. Rate : 080 BPM Atrial Rate : 080 BPM P-R Int : 166 ms QRS Dur : 102 ms QT Int : 422 ms P-R-T Axes : 022 033 018 degrees QTc Int : 486 ms Normal sinus rhythm Inferior infarct , age undetermined Abnormal ECG Confirmed by REESE GA, JEFFREY ([id number]), rewrite editor LIVIER RIZO ([id number]) on 07/18/2023 11:18:15 AM Referred By: Confirmed By:JEFFREY LEIGH MD
[2023-07-15] MEDS: Ondansetron 4 MG/2 ML Vial IV (10:48)
[2023-07-15] MEDS: Morphine 4 MG/ML Syringe IV ×4 (10:48→19:35)
[2023-07-15 10:51] LABS: Absolute Lymphocyte Count 1.87 X10^3/uL (0.83-4.51); Absolute Neutrophil Count 6.5 X10^3/uL (2.0-7.7); Basophil# 0.11 X10^3/uL; Basophil% 1.1 % (0-1); Eosinophil# 0.75 X10^3/uL; Eosinophils% 7.5 % (0-5); Hematocrit 46.4 % (40-54); Hemoglobin 16.5 g/dL (13.0-16.5); Lymphocyte # 1.87 X10^3/ul (0.83-4.51); Lymphocyte % 18.6 % (19-41); Mean Corp Hgb Conc 35.6 g/dL (32-36); Mean Corpuscular Hgb 29.2 pg (27.0-32.0); Mean Corpuscular Volume 82.1 fL (80-94); Mean Platelet Vol. 11.6 fl (6.2-12.0); Monocyte# 0.76 X10^3/uL; Monocyte% 7.6 % (0-10); NRBC Flagged by Analyzer 0 % (0-5); Neutrophil % 64.7 % (47-70); Platelet Count 286 K/mm3 (150-450); RBC Distribution Width CV 12.8 % (11.6-14.6); RBC Distribution Width SD 37.5 fl (35.1-43.9); Red Blood Count 5.65 M/mm3 (4.6-6.2)
[2023-07-15 10:57] LABS: Prothrombin Time (Protime)PT. 12.7 SECONDS (11.7-14.9)
[2023-07-15 10:59] LABS: Partial Thromboplast Time 27.7 Seconds (24.1-36.2)
[2023-07-15 11:09] LABS: D-Dimer Quantitative (DVT/PE) 0.37 FEU/ug/m (0.27-0.49)
[2023-07-15 11:13] LABS: Anion Gap 12 (5-15); BUN 17 mg/dL (7-18); BUN/Creat Ratio 13.1 RATIO (10-20); Calcium,Total 9.3 mg/dL (8.5-10.1); Chloride 109 mmol/L (98-107); EST Glomerular Filtration Rate 66 mL/min (>60); Est Glom Filt Rate - Afr Amer 80 mL/min (>60); Estimated Creatinine Clearance 101.56 ml/min; Glucose 138 mg/dL (74-106); Potassium 4.2 mmol/L (3.5-5.1); Sodium Level 141 mmol/L (136-145); Troponin-I HS (w/2H Reflex) 141 pg/mL (3.0-78.0)
--- NOTE | 2023-07-15 11:20 | RAD_ITS ---
INDICATION: chest pain EXAMINATION/TECHNIQUE: X-RAY - XR Chest 1 View COMPARISON: Chest of 10/19/2019. FINDINGS: LINES/DEVICES: None. LUNGS: No consolidation, edema or effusion. No pneumothorax. MEDIASTINUM AND CARDIOVASCULAR STRUCTURES: Cardiac silhouette not enlarged. Central airways and mediastinal contour are unremarkable. BONES AND SOFT TISSUES: Unremarkable. RAD/Chest 1 View (Portable) IMPRESSION: No radiographic evidence of acute cardiopulmonary disease. Electronically Signed: Harry England MD at 12:08 EDT ,
[2023-07-15 12:45] LABS: Reflex Troponin-HS? (from REC) Y
--- NOTE | 2023-07-15 13:15 | CT_ITS ---
STUDY: CTA CHEST REASON FOR EXAM: Male, 37 years old. Chest pain -- r/o dissection RADIATION DOSAGE (If Supplied By Facility): CTDIvol = ( 19.16 ) mGy, DLP = ( 3150.79 ) mGycm TECHNIQUE: The examination was performed with the intravenous administration of IV 100mL Isovue-370. Post-processing of the angiographic images was performed, with multiplanar reformation and 3D reconstruction. Individualized dose optimization techniques were used for this CT. COMPARISON: Comparison is made with prior chest radiograph done earlier today. FINDINGS: Normal enhancement of the main pulmonary artery and right and left pulmonary arteries. Normal enhancement of the bilateral peripheral pulmonary arteries. There is no demonstrated pulmonary embolism. Normal thoracic aorta and visualized great vessels. There is no demonstrated aortic dissection. Normal heart and pericardium. There are visualized mediastinal lymph nodes, which are within normal size limits, and with normal morphology. Normal hilar regions. Normal visualized trachea and bronchi. The lungs are well expanded. Normal pulmonary parenchyma. Normal pleura. Normal chest wall structures. Normal osseous structures. Fatty infiltration of the liver. CT/CTA Chest W/WO Contrast IMPRESSION: Normal CTA chest examination, without a demonstrated pulmonary embolism or arterial dissection. Electronically Signed: Alfonso Sahu MD at 14:14 EDT ,
--- NOTE | 2023-07-15 13:19 | CT_ITS ---
STUDY: CT ABDOMEN AND PELVIS WITH CONTRAST REASON FOR EXAM: Male, 37 years old. Rectal bleed RADIATION DOSAGE (If Supplied By Facility): CTDIvol = ( 19.16 ) mGy, DLP = ( 3150.79 ) mGycm TECHNIQUE: IV 100mL Isovue-370 was administered. Transaxial images were obtained from the dome of the diaphragm to the symphysis pubis. Multiplanar coronal and sagittal images were reformatted. Individualized Dose Optimization Techniques Were Used For This CT. COMPARISON: Prior examination of 10/19/2019. FINDINGS: The visualized lung bases are unremarkable. The visualized portions of the heart are within normal limits. Coronary calcifications.. No focal lesion is seen in the liver. There is non-visualization of the gallbladder, which may be secondary to either contraction or a prior cholecystectomy. Normal spleen. Normal pancreas. Normal bilateral adrenal glands. Stomach is unremarkable. The gastric antrum is not well distended. Normal in caliber small bowel loops. No evidence of acute diverticulitis. The appendix is visualized and appears normal. Normal abdominal aorta. No retroperitoneal adenopathy. Normal right kidney. Normal left kidney. Normal urinary bladder. Normal abdominal wall. Normal osseous structures. CT/Abdomen/Pelvis W IV Cont ONLY IMPRESSION: No focal acute inflammatory process. Electronically Signed: Harry England MD at 14:10 EDT ,
[2023-07-15 13:26] LABS: Troponin-I HS 120 pg/mL (3.0-78.0)
[2023-07-15] MEDS: Labetalol (Prefilled) 20 MG/4 ML IV (22:15)
[2023-07-15] MEDS: 0.9% Normal Saline 1,000 ML 150 ML IV (23:39)
[2023-07-16] VITALS: BP 121/87; PULSE 69; RESP 28; O2SAT 95
[2023-07-16] MEDS: Morphine 4 MG/ML Syringe IV
[2023-07-16 01:00] VITALS: BP 105/60; PULSE 69; RESP 22; O2SAT 94
--- NOTE | 2023-07-16 02:05 | PCM.HOSP.N ---
Hospitalist Note The patient is a 37 y/o M w/ PMHx: Polysubstance abuse (Methamphetamine use), History EtOH abuse, HTN, HLD, CAD s/p recent PCI/NSTEMI, Ischemic Cardiomyopathy/HFrEF, Obesity, Tobacco use, recent discharge 2 days prior following history of exertional dyspnea for approximately 3 weeks with admission 07/11/2023 at [facility] with hypertensive urgency and new onset heart failure (EF 30 to 35%) w/ elevated troponin c/w NSTEMI diagnosis with eventual cardiac catheterization with noted 95% stenosis RCA with PCI performed with initiation of aspirin and prasugrel as well as IV Lasix eventually transition to oral regimen who presents to the [facility] ED on 07/16/23 initially with history of 3 episodes of bright red blood in his stools with earlier in the a.m. with no associated abdominal pain with onset of left upper back discomfort worse with deep inspiratory effort with radiation also into the left chest prompting repeat ED evaluation to be cautious. Recent admission H&P from [facility] noted renal artery Doppler 07/12/2023 with no evidence of any hemodynamically significant arterial stenosis with findings consistent with less than 60% stenosis in addition to lab work-up including TAVR creatinine 7.5 and aldosterone 8.9 both within the range of the lab references as well as urine protein creatinine ratio 0.4 with urine protein 62.7/urine creatinine 148.6 in addition to TUSHAR negative/serum LENA levels 37 which is normal range, LDH 324 with planned pulmonary evaluation outpatient given mediastinal lymphadenopathy. During the prior admission he did have a urine drug screen which had positive methamphetamines. Work-up in the ED included T97, heart rate 83, BP 120/74, respiratory rate 22, 100% on room air with BP elevating to 194/141 with most recent repeat 121/87, CBC with WBC 10, hemoglobin 16.5, platelets 286 without marked shift, unremarkable coags, D-dimer 0.37, BMP with chloride 109,, oxide 20, glucose 138, initial troponin 141 with repeat 120 (from [facility] records most recent 07/11/23 high-sensitivity troponin 67.24), chest x-ray with no acute cardiopulmonary findings, CTPA unremarkable with no evidence of any pulmonary emboli or arterial dissection, CT abdomen and pelvis with IV contrast with no focal acute intra-abdominal process, positive stool guaiac, EKG with T wave inversions with sinus rhythm. ED did discuss case with on-call wildlife refuge manager Dr. Fernandez who felt it reasonable to observe the patient with possibly a GI consult. Hospitalist physician Dr. Peña was consulted for admission and evaluated the patient in addition to Dr. Fernandez with recommendation for transfer back to [facility] given recent procedure at their facility with acceptance by Dr. Rodriguez. Given the rectal bleeding anticoagulation/further antiplatelet therapy was held. In the ED patient ministered maintenance IV fluids, labetalol 20 mg IV x1, Zofran 4 mg IV x1 in addition to morphine 4 mg x 5 total doses. Patient fortunately obtained a bed 07/16/23 2:05 am.
[2023-07-16 02:59] VITALS: BP 119/82; PULSE 71; RESP 18; TEMP 36.7; O2SAT 95
--- NOTE | 2023-07-16 03:04 | ED.RN ---
CALLED PT'S MOM (ZANDRA) PER HIS REQUEST TO INFORM HER THAT PT WAS LEAVING AT THIS TIME FOR [facility]. [phone]
== END 2023-07-16 03:05 | disposition other institution (70) ==
PROVIDERS: Emergency Provider Emergency Medicine; Visit Provider Emergency Medicine
DX: Z95.5 Presence of coronary angioplasty implant and graft (principal); I11.0 Hypertensive heart disease with heart failure; I50.22 Chronic systolic (congestive) heart failure; I25.10 Atherosclerotic heart disease of native coronary artery without angina pectoris; K62.5 Hemorrhage of anus and rectum; R07.9 Chest pain, unspecified; I25.5 Ischemic cardiomyopathy; E78.5 Hyperlipidemia, unspecified; F17.210 Nicotine dependence, cigarettes, uncomplicated; Z79.899 Other long term (current) drug therapy; Z79.82 Long term (current) use of aspirin
CPT/HCPCS: 71045; 71275; 74177; 80048; 82274; 84484; 85025; 85379; 85610; 85730; 93005; 96361; 96374; 96375; 96376; 99285; Q9967; J2405

== ENCOUNTER 2025-11-04 05:57 | Emergency (ER) | payer MEDICAID, SELFPAY ==
[2025-11-04] VITALS (35 sets, daily range): BP systolic 79–240; BP diastolic 38–166; PULSE 73–108; RESP 7–40; TEMP 36.2–37.3; O2SAT 89–100; BMI 43.4
--- NOTE | 2025-11-04 05:59 | EX.ED.DYSGE1 ---
HPI History of Present Illness Chief Complaint: Allergic Reaction Narrative Narrative: Patient was seen and examined after presenting to ED for difficulty swallowing states that he had epiglottitis about 9 years ago ended up getting an emergent cricothyrotomy that was performed here at this emergency department states that since then he has had a couple times where he has had some sort of foodborne allergy he states that he has not had anything new or different and has not had anything in several hours and so he does not know what would have caused this. PFSH PFSH Medical History Methamphetamine abuse CKD (chronic kidney disease), stage III Ischemic cardiomyopathy HFrEF (heart failure with reduced ejection fraction) HLD (hyperlipidemia) CAD (coronary artery disease) Hypertension History of ETOH abuse Obesity (BMI 30-39.9) Tobacco use Home Medications ?Medication ?Instructions ?Recorded ?Last Taken ?Type aspirin 81 mg chewable tablet 1 tab PO DAILY HEART HEALTH 07/15/23 07/15/23 History (Matt Chewable Low Dose Aspirin) atorvastatin 40 mg tablet 40 mg PO QHS CHOLESTEROL 07/15/23 07/14/23 History carvedilol 6.25 mg tablet 6.25 mg PO BID HEART 07/15/23 07/15/23 History furosemide 40 mg tablet 40 mg PO DAILY FLUID 07/15/23 07/15/23 History prasugrel HCl 10 mg tablet 10 mg PO DAILY HEART 07/15/23 07/15/23 History sacubitril 24 mg-valsartan 26 mg 1 tab PO BID HEART FAILURE 07/15/23 07/15/23 History tablet (Entresto) Allergy/AdvReac Type Severity Reaction Status Date / Time No Known Allergies Allergy Verified 11/04/25 06:07 Family History Mother Hypertension Diabetes Surgical History H/O heart artery stent Social History household members: family Smoking Status: Current every day smoker tobacco type: cigarettes alcohol intake: former substance use type: methamphetamine ROS ROS ED ROS Narrative Pertinent Positives: Difficulty swallowing feels like his voice is different shortness of breath Pertinent Negatives: Rash fevers vomiting diarrhea The remainder of review of systems negative unless otherwise stated in the HPI above. Systems reviewed including constitutional, psychiatric, cardiovascular, respiratory, integument, HENT, gastrointestinal. EXAM Physical Exam Narrative Exam Narrative: Patient is afebrile he is hemodynamically stable his airway appears intact I do not see any visible swelling no erythema or tonsillar exudates or uvular deviation normal range of motion of his head and neck nontender overlying his throat no stridor no wheezing has intact MSPs otherwise Const Vital Signs: 11/04/25 06:01 11/04/25 06:14 11/04/25 07:00 Temperature 98 F Temperature Source Oral Pulse Rate 87 81 87 Respiratory Rate 20 H 20 H 18 Respiratory Pattern Normal Blood Pressure 165/97 H 137/82 H Blood Pressure Mean 119 100 Pulse Ox 99 97 Oxygen Delivery Method Room Air Room Air Fraction of Inspired Oxygen (FIO2) EtCo2 - Document during CPR and with ROSC 11/04/25 07:06 11/04/25 07:25 11/04/25 07:25 Temperature Temperature Source Pulse Rate 102 H 104 H Respiratory Rate 16 18 Respiratory Pattern Blood Pressure 157/98 H Blood Pressure Mean 115 Pulse Ox 93 97 94 Oxygen Delivery Method Mechanical Ventilator Mechanical Ventilator Fraction of Inspired Oxygen (FIO2) 80 EtCo2 - Document during CPR and with ROSC 73 11/04/25 07:30 11/04/25 07:30 11/04/25 07:31 Temperature 97.2 F L 97.2 F L 97.5 F L Temperature Source Core Core Core Pulse Rate 103 H 103 H 101 H Respiratory Rate 16 17 17 Respiratory Pattern Blood Pressure 163/95 H 163/102 H 163/95 H Blood Pressure Mean 117 119 113 Pulse Ox 95 95 95 Oxygen Delivery Method Mechanical Ventilator Fraction of Inspired Oxygen (FIO2) 80 EtCo2 - Document during CPR and with ROSC 11/04/25 07:45 11/04/25 08:00 11/04/25 08:15 Temperature 98.6 F 98.8 F 99.0 F Temperature Source Core Core Core Pulse Rate 90 94 108 H Respiratory Rate 21 H 21 H 22 H Respiratory Pattern Blood Pressure 140/94 H 157/124 H 240/165 H Blood Pressure Mean 108 135 185 Pulse Ox 98 99 90 Oxygen Delivery Method Fraction of Inspired Oxygen (FIO2) EtCo2 - Document during CPR and with ROSC 11/04/25 08:16 11/04/25 08:22 11/04/25 08:24 Temperature 99.0 F 99.0 F Temperature Source Core Core Pulse Rate 107 H 108 H Respiratory Rate 21 H 24 H Respiratory Pattern Blood Pressure 235/133 H 229/165 H 229/165 H Blood Pressure Mean 160 184 186 Pulse Ox 90 89 Oxygen Delivery Method Fraction of Inspired Oxygen (FIO2) EtCo2 - Document during CPR and with ROSC 11/04/25 08:28 11/04/25 08:30 11/04/25 08:45 Temperature 99.0 F 99.0 F Temperature Source Core Core Pulse Rate 107 H 103 H 92 Respiratory Rate 22 H 24 H 24 H Respiratory Pattern Blood Pressure 209/122 H 178/101 H Blood Pressure Mean 143 122 Pulse Ox 91 92 96 Oxygen Delivery Method Fraction of Inspired Oxygen (FIO2) EtCo2 - Document during CPR and with ROSC 49 11/04/25 08:45 11/04/25 09:00 11/04/25 09:06 Temperature 99.0 F 99.0 F Temperature Source Core Core Pulse Rate 92 104 H Respiratory Rate 24 H 26 H Respiratory Pattern Blood Pressure 139/80 H 177/134 H 177/134 H Blood Pressure Mean 98 146 148 Pulse Ox 96 96 Oxygen Delivery Method Fraction of Inspired Oxygen (FIO2) EtCo2 - Document during CPR and with ROSC 11/04/25 09:16 Temperature Temperature Source Pulse Rate Respiratory Rate Respiratory Pattern Blood Pressure 177/166 H Blood Pressure Mean 169 Pulse Ox Oxygen Delivery Method Fraction of Inspired Oxygen (FIO2) EtCo2 - Document during CPR and with ROSC MDM MDM MDM Narrative Medical decision making narrative: Nursing notes, triage notes, available previous documentation, and vital signs were reviewed. Any discrepancies noted were addressed. Differential Diagnoses: Epiglottitis low suspicion for peritonsillar abscess need to consider to space neck infection as could be anaphylactic Interventions: EpiPen methylprednisolone Benadryl Zofran Pepcid racemic epinephrine glycopyrrolate Versed ketamine etomidate rocuronium propofol Procedure Performed: Intubation Indication: Airway Protection Physician: Khloe Slade Consent: Verbal consent obtained from patient prior to procedure. Procedure summary: Timeout was performed. Appropriate PPE was worn. Patient was on a bus monitor with continuous pulse ox. Awake intubation performed with Versed ketamine after patient was intubated he was given etomidate and rocuronium to help calm him down. The patient was preoxygenated to the best of our abilities. The tube was passed after 3 attempts. Visualization of the vocal cords was obtained with the use of video laryngoscopy. Adjuncts such as a bougie/LMA were not used. A size 6.0 endotracheal tube was then passed through the visualized cords. The stylette was removed and the cuff was inflated. The endotracheal tube was secured at 27 cm at the lips. Placement was confirmed by color capnography, end tidal CO2, fog in tube, auscultation of bilateral breath sounds, appropriate SpO2, and post-intubation CXR. Patient was then sedated with propofol. Complications: Significant swelling from epiglottitis initially attempted to use a 5.5 endotracheal tube but the stylette was too flexible and was unable to pass. On my second attempt I was able to visualize the epiglottis really was unable to see the cords and because of the secretions we abandoned the attempt prior to actually initiating it. The third attempt there was significantly more swelling but we were able to successfully intubate Antibiotics Given: Ceftriaxone Fluids Given: 1 L normal saline Labs Reviewed: No leukocytosis leukopenia or anemia no electrolyte abnormality creatinine is 1.2 mild transaminitis AST of 64 ALT of 100 Imaging Reviewed: Personally reviewed and interpreted by me: CT soft tissue neck trachea appears that there is definitely significant narrowing to the point where at 1 point it looks like it is about 5 mm official interpretation showing at the time mildly edematous epiglottitis with mild thickening of the area epiglottic folds Previous Documentation Reviewed: None available or applicable at this time. ED Course: Patient presenting with symptoms as stated before with a history of epiglottitis and emergent cricothyrotomy in the hallway of the emergency department patient is coming in reporting difficulty swallowing started having some pain after given racemic epinephrine as well as IM epinephrine patient stated that he felt like his breathing was better but he did not show much other change I then was reviewing the patient's CT of his soft tissue neck to make sure that there was not any underlying abscess as well. I then noticed the narrowing I went back into discussed with the patient and he had a drastic change to his voice he is still mentating appropriately but the decision was made to secure his airway then and there intubation process was described as above patient was ultimately secured with his airway and airway team was called but anesthesiologist was present at the bedside fortunately we did not have to take any further significant or surgical measures to secure the airway patient will require admission to the ICU. I did a [id number] conversation with the hospitalist Dr Oconnor regarding admission unfortunately we do not have in-house critical care coverage over the weekend and although the patient was seen by one of the ENT physicians here about 6 years ago given the duration of time and the fact that we do not actively have ENT coverage today we are going to go ahead and try transferring this patient to [facility] where he is known from the initial episode [id number]: We are still pending hearing back from [facility] patient has been endorsed oncoming physician pending transfer. 68 minutes of critical care time utilized in managing the patient. This is due to high probability of and deterioration of the patient based on the patient's condition and excludes any separately billable procedures. This note was made utilizing voice recognition software. All attempts were made to correct spelling or other errors prior to note completion. However, due to the fast-paced nature of emergency medicine, some errors may still be present. Lab Data Labs: Laboratory Results - last 24 hr 11/04/25 06:05 WBC 8.4 RBC 5.26 Hgb 14.7 Hct 44.3 MCV 84.2 MCH 27.9 MCHC 33.2 RDW Std Deviation 41.1 RDW Coeff of Linus 13.3 Plt Count 288 MPV 11.6 Immature Gran % (Auto) 0.400 Neut % (Auto) 57.8 Lymph % (Auto) 23.9 [place] % (Auto) 10.7 H Eos % (Auto) 6.5 H Baso % (Auto) 0.7 Absolute Neuts (auto) 4.9 Absolute Lymphs (auto) 2.01 Nucleated RBC % 0 Sodium 142 Potassium 4.1 Chloride 104 Carbon Dioxide 28.0 Anion Gap 10 BUN 17 Creatinine 1.27 H Estim Creat Clear Calc 135.90 Est GFR (MDRD) Non-Af 74 BUN/Creatinine Ratio 13.0 Glucose 133 H Lactic Acid 1.5 Calcium 9.4 Total Bilirubin 0.33 AST 64 H ALT 100 H Alkaline Phosphatase 95 Total Creatine Kinase 244 H Total Protein 7.3 Albumin 4.2 Globulin 3.1 Albumin/Globulin Ratio 1.4 Triglycerides 280 H ABG Data ABG results: ABG 11/04/25 08:12 Specimen Type ART Sample Site L Radial pH 7.23 L Bicarbonate Actual 24.4 Total CO2 26 Base Excess -3 L O2 Saturation 88 L O2 % 80.0 ABG pCO2 58.0 H ABG pO2 65 L Rommel Test Positive Respiration Rate 16 O2 Delivery Device Adult Vent Vent Mode AC Tidal Volume 500.0 POC PEEP 5 Radiography Diagnostic Testing: Clinical Impression(s) from Imaging Studies Soft Tissue Neck CT 11/04/25 06:14 IMPRESSION: Mildly edematous epiglottis with mild thickening of the aryepiglottic folds concerning for epiglottitis. Reading Location: [id number] Chest X-Ray 11/04/25 07:10 IMPRESSION: 1. Multifocal airspace disease consistent with atelectasis or pneumonia. Cardiomegaly. There may be some element of congestive heart failure. 2. There is an endotracheal tube with the tip in good position. Reading Location: [id number] Chest X-Ray 11/04/25 07:30 IMPRESSION: Endotracheal tube extends 5 cm above the maribeth. Interval placement of a partially visualized orogastric tube coursing below the diaphragm. The distal tip is not imaged. No pneumothorax. Bilateral lung base opacification may reflect airspace disease. Reading Location: [id number] Discharge Plan Triage Chief Complaint: Allergic Reaction ED Provider: Khloe Slade Dx/Rx/DC Orders Clinical Impression: Epiglottitis, Odynophagia, History of epiglottitis Prescriptions: No Action furosemide 40 mg tablet 40 mg PO DAILY carvedilol 6.25 mg tablet 6.25 mg PO BID prasugrel HCl 10 mg tablet 10 mg PO DAILY aspirin [Matt Chewable Aspirin] 81 mg tablet,chewable 1 tab PO DAILY atorvastatin 40 mg tablet 40 mg PO QHS Entresto 24-26 mg tablet 1 tab PO BID Primary Care Provider: Mic Duckworth Referrals: Care Physician,No Primary [Non-Staff, Medical] Print Language: Guinean
[2025-11-04] MEDS: Epi Pen (EQUIV) 0.3 MG Syringe IM (06:09)
[2025-11-04] MEDS: 0.9% Normal Saline (1000mL) 1,000 ML 999 ML IV (06:09)
[2025-11-04] MEDS: DiphenhydrAMINE 50 MG/ML Syringe IV (06:09)
[2025-11-04] MEDS: Racepinephrine HCl 0.5 ML VIAL.NEB. INHALATION (06:10)
[2025-11-04] MEDS: Famotidine 200 MG/20 ML MDV 20 MG in 0.9% Normal Saline (Pres. free 8 ML 300 MG IV (06:13)
--- NOTE | 2025-11-04 06:14 | CT_ITS ---
PROCEDURE: SOFT TISSUE NECK W/WO CONTRAST 11/04/2025 REASON FOR EXAM: HISTORY OF EPIGLOTTITIS CONCERN FOR INFECTION TECHNIQUE: Procedure Code: CTNEWW Modality: CT Procedure: SOFT TISSUE NECK W/WO CONTRAST CONTRAST: Isovue 370 VOLUME: 98 mL One or more dose reduction techniques were used (e.g., Automated exposure control, adjustment of the mA and/or kV according to patient size, use of iterative reconstruction technique). RADIATION DOSE SUMMARY: DLP: 699.29 mGycm COMPARISON: CT neck 01/21/2019 FINDINGS: Aerodigestive tract: There is a mildly edematous epiglottis with mild thickening of the aryepiglottic folds. There is airway narrowing at the region of the hypopharynx. The floor of mouth, base of tongue, nasopharynx and larynx appear overall symmetric without evidence of nodular or masslike enhancement. The visualized trachea is clear. The nasal cavity is unobstructed. Multiple dental caries. Salivary glands: (Major): The submandibular glands and parotid glands appear within normal limits. Thyroid gland: Unremarkable. Lymph nodes: There is no evidence of pathologic cervical lymphadenopathy. Multiple suprahyoid cervical lymph nodes all measuring less than 1.5 cm and likely reactive in nature. Vasculature: The common carotid, cervical internal carotid, and cervical vertebral arteries opacify with intravenously administered contrast. Paranasal sinuses: Mucosal thickening in the right maxillary sinus where there are internal hyperdensities and associated maxillary wall thickening and likely reflect chronic sinusitis. Fungal colonization is not excluded. Additional scattered paranasal mucosal thickening. Orbits: Unremarkable. Intracranial/cranium: The partially visualized intracranial contents appear overall within normal limits for the patient's stated age, although assessment is limited due to technique (e.g. the [id number]). Cervical spine: Unremarkable. Lung apices: The visualized lung apices are predominantly clear. CT/Soft Tissue Neck W/WO Contrast IMPRESSION: Mildly edematous epiglottis with mild thickening of the aryepiglottic folds con cerning for epiglottitis. Reading Location: [facility]
[2025-11-04 06:24] LABS: Hematocrit 44.3 % (40-54); Hemoglobin 14.7 g/dL (13.0-16.5); Immature Granulocytes Count 0.030 X10^3/uL (0.0-0.0); Mean Corp Hgb Conc 33.2 g/dL (32-36); Mean Corpuscular Volume 84.2 fL (80-94); Mean Platelet Vol. 11.6 fl (6.2-12.0); NRBC Flagged by Analyzer 0 % (0-5); Platelet Count 288 K/mm3 (150-450); RBC Distribution Width CV 13.3 % (11.6-14.6); RBC Distribution Width SD 41.1 fl (35.1-43.9); Red Blood Count 5.26 M/mm3 (4.6-6.2); White Blood Count 8.4 K/mm3 (4.4-11.0)
--- OUTSIDE RECORDS SUMMARY | 2025-11-04 06:54 | XMS RPT_ITS | CCD ---
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 Jose Dunn Emergency Provider Dr. Connie Quick Attending Provider [phone] OTOOLE DO, MICHAEL E Primary Care Physician EDILMA RUBY MD Attending Unavailable PHYSICIAN, NONE Primary Care Unavailable DR MICHAEL PIZANO MD Consulting Unavailable OTOOLE DO, MICHAEL E Primary Care Unavailable MIKA PIPER MD Attending Unavail able DERITA POLARITY TESTER-POPCORN CANDY MAKERLISSETH Attending Unavailabl e PHYSICIAN, NONE Primary Care Unavailable OTOOLE DO, MICHAEL E Attending Unavailable OTOOLE DO, MICHAEL E Primary Care Unavailable OTOOLE DO, MICHAEL E Attending Unavailable OTOOLE DO, MICHAEL E Primary Care Unavailable PERICO RODRIGUEZ MD Admitting Unavailable PHYSICIAN, NONE Primary Care Unavailable HOLLIE GA, ANS Attending Unavailable JOANN GA, DR BARRETT Consulting Unavailable PAVEL PEREZ MD Consulting Unavailable DR MICHAEL PIZANO MD Admitting Unavailable PHYSICIAN, NONE Primary Care Unavailable AMBER GA, DR HER Attending PAVEL Worthington MD Attending Unavailable PHYSICIAN, NONE Primary Care Unavailable DERITA POLARITY TESTER-POPCORN CANDY MAKERLISSETH Attending Unavailabl e PHYSICIAN, NONE Primary Care Unavailable PAVEL PEREZ MD Attending Unavailable PHYSICIAN, NONE Primary Care Unavailable OTOOLE DO, MICHAEL E Attending Unavailable OTOOLE DO, MICHAEL E Primary Care Unavailable DERITA POLARITY TESTER-POPCORN CANDY MAKERLISSETH Attending Unavailabl e PHYSICIAN, NONE Primary Care Unavailable YASEMIN NEGRON MD Attending Unavailable MICHAEL OTOOLE DO Primary Care Unavailable ELGIN RICHARDS MD Admitting Unavailable Zenobia Queen DO Primary Care Provider ZENOBIA QUEEN Attending Unavailable ZENOBIA QUEEN Primary Care Unavailable LUIS VEGA DO Attending Unavailable MICHAEL OTOOLE DO Primary Care Unavailable MICHAEL OTOOLE DO Attending Unavailable MICHAEL OTOOLE DO Primary Care Unavailable OTOOLEMICHAEL ESCAMILLA DO Primary Care Unavailable MICHAEL OTOOLE DO E Attending Unavailable MICHAEL OTOOLE DO Primary Care Unavailable VÍCTOR CHEN MD Attending Unavailable MIKA PIPER MD Attending Unavail able MICHAEL OTOOLE DO Primary Care Unavailable Medications Current Medications Medication Drug Class(es) Dates Sig (Normalized) Sig (Original) albuterol MDI (90 mcg/inh) CFC free inhalation aerosol (5 sources) Start: 09-03-2024 take 2 puff(s) by inhalation every six hours albuterol MDI (90 mcg/inh) CFC free inhalation aerosol 2 puff(s), Inhalation, q6h, # 8.5 gram(s), 0 Refill(s) Start Date: 09/03/24 Status: Ordered Medication Dispense Status: Completed Quantity: 8.5 Unit: g Total Allowed Fills: 1 Fills Dispensed: 0 Start: 09-03-2024 take 2 puff(s) by in halation every six hours albuterol MDI (90 mcg/inh) CFC free inhalation aerosol 2 puff(s), Inhalation, q6h, # 8.5 gram(s), 0 Refill(s) Start Date: 09/03/24 Status: Ordered Quantity: 8.5 Unit: g Repeat number: 1 Start: 09-03-2024 take 2 puff(s) by in halation every six hours albuterol MDI (90 mcg/inh) CFC free inhalation aerosol 2 puff(s), Inhalation, q6h, # 8.5 gram(s), 0 Refill(s) Start Date: 09/03/24 Status: Ordered amLODIPine 5 mg oral tablet (9 sources) Dihydropyridine Calcium Channel Andre Start: 05-30-2025 amLODIPine 5 mg oral tablet Dose : 5 mg = 1 tab(s), Oral, qDay, # 100 tab(s), 0 Refill(s), Pharmacy: [facility], 198, cm, 05/30/25 15:54:00 EDT, Height, kg, 05/30/25 15:54:00 EDT, Dosing Weight Start Date: 05/30/25 Status: Ordered Medication Dispense Status: Completed Quantity: 100.0 Unit: tab(s) Total Allowed Fills: 1 Fills Dispensed: 0 Start: 09-03-2024 amLODIPine 10 mg oral tablet Dose : 10 mg = 1 tab(s), Oral, qDay Start Date: 09/03/24 Status: Ordered Start: 03-08-2024 End: 08-24-2024 amLODIPine 10 mg oral tablet Dose : 10 mg = 1 tab(s), Oral, qDay, TAKE ONE TABLET BY MOUTH ONCE DAILY, # 30 tab(s), 3 Refill(s), Pharmacy: [facility], 198, cm, 04/19/24 15:57:00 EDT, Height, kg, 04/19/24 15:57:00 EDT, Dosing Weight Start Date: 04/26/24 Stop Date: 08/24/24 Status: Ordered aspirin 81 mg chewable tablet (18 sources) Platelet Aggregation Inhibitor, Nonsteroidal Anti-inflammatory Drug Start: 05-30-2025 aspirin 81 mg ora l tablet, chewable Dose : 81 mg = 1 tab(s), Oral, qDayM, # 90 tab(s), 2 Refill(s), Pharmacy: [facility], 198, cm, 05/30/25 15:54:00 EDT, Height, kg, 05/30/25 15:54:00 EDT, Dosing Weight Start Date: 05/30/25 Status: Ordered Medication Dispense Status: Completed Quantity: 90.0 Unit: tab(s) Total Allowed Fills: 3 Fills Dispensed: 0 Start: 07-27-2024 aspirin 81 mg oral tablet, chewable Dose : 81 mg = 1 tab(s), Oral, qDayM, # 90 tab(s), 2 Refill(s), Pharmacy: [facility], 198.1, cm, 07/25/24 19:52:00 EDT, Height, kg, 07/25/24 19:52:00 EDT, Dosing Weight Start Date: 07/27/24 Status: Ordered Start: 02-13-2024 aspirin 81 mg oral tablet, chewable Dose : 81 mg = 1 tab(s), Oral, qDayM, # 90 tab(s), 2 Refill(s), Pharmacy: [facility], 194, cm, 02/09/24 14:13:00 EDT, Height, kg, 02/09/24 14:13:00 EDT, Dosing Weight Start Date: 02/13/24 Status: Ordered Start: 08-14-2023 aspirin 81 mg oral tablet, chewable Dose : 81 mg = 1 tab(s), Oral, qDayM, # 90 tab(s), 2 Refill(s), Pharmacy: [facility], 198.1, cm, 07/23/23 11:12:00 EDT, Height, kg, 07/23/23 11:12:00 EDT, Dosing Weight Start Date: 08/14/23 Status: Ordered Start: 07-17-2023 aspirin 81 mg oral tablet, chewable Dose : 81 mg = 1 tab(s), Oral, qDayM, 0 Refill(s) Start Date: 07/17/23 Status: Ordered Start: 07-15-2023 take 1 tablet by paco th once daily Aspirin (Matt Chewable Aspirin) 81 mg tablet,chewable Active 1 TABLET PO DAILY July 15, 2023 12:00am atorvastatin 40 mg oral tablet (16 sources) HMG-CoA Reductase Inhibitor Start: 05-30-2025 atorvastatin 40 mg oral tablet Dose : 40 mg = 1 tab(s), Oral, qDay, # 30 tab(s), 0 Refill(s), Pharmacy: [facility], 198, cm, 05/30/25 15:54:00 EDT, Height, kg, 05/30/25 15:54:00 EDT, Dosing Weight Start Date: 05/30/25 Status: Ordered Medication Dispense Status: Completed Quantity: 30.0 Unit: tab(s) Total Allowed Fills: 1 Fills Dispensed: 0 Start: 07-27-2024 atorvastatin 4 0 mg oral tablet Dose : 40 mg = 1 tab(s), Oral, qDay, # 30 tab(s), 0 Refill(s), Pharmacy: [facility], 198.1, cm, 07/25/24 19:52:00 EDT, Height, kg, 07/25/24 19:52:00 EDT, Dosing Weight Start Date: 07/27/24 Status: Ordered Start: 06-04-2024 atorvastatin 1 0 mg oral tablet Dose : 10 mg = 1 tab(s), Oral, qDay, # 30 tab(s), 0 Refill(s), Pharmacy: [facility], 198, cm, 06/04/24 10:12:00 EDT, Height, kg, 06/04/24 10:12:00 EDT, Dosing Weight Start Date: 06/04/24 Status: Ordered Start: 05-17-2024 atorvastatin 2 0 mg oral tablet Dose : 20 mg = 1 tab(s), Oral, qDay, # 100 tab(s), 0 Refill(s), Pharmacy: [facility], 198, cm, 05/17/24 15:31:00 EDT, Height, kg, 05/17/24 15:22:00 EDT, Dosing Weight Start Date: 05/17/24 Status: Ordered Start: 07-18-2023 End: 08-17-2023 atorvastatin 40 mg oral tabl et Dose : 40 mg = 1 tab(s), Oral, qDay, # 90 tab(s), 3 Refill(s), Pharmacy: [facility], 198.1, cm, 07/23/23 11:12:00 EDT, Height, kg, 07/23/23 11:12:00 EDT, Dosing Weight Start Date: 08/14/23 Status: Ordered Start: 07-15-2023 take 40 mg by mouth at bedtime Atorvastatin Active 40 MG PO AT BEDTIME July 15, 2023 12:00am benzonatate 100 mg oral capsule (1 source) Non-narcotic Antitussive Start: 09-03-2024 End: 09-10-2024 Tessalon Perles 100 mg oral capsule Dose : 100 mg = 1 cap(s), Oral, TID, X 7 day(s), # 21 cap(s), 0 Refill(s), 09/10/24 11:46:00 AM EDT Start Date: 09/03/24 Stop Date: 09/10/24 Status: Ordered carvedilol 6.25 mg oral tablet (8 sources) alpha-Adrenergic Andre, beta-Adrenergic Andre Start: 05-30-2025 Coreg 6.25 mg or al tablet Dose : 6.25 mg = 1 tab(s), Oral, BID, # 60 tab(s), 0 Refill(s), Pharmacy: [facility], 198, cm, 05/30/25 15:54:00 EDT, Height, kg, 05/30/25 15:54:00 EDT, Dosing Weight Start Date: 05/30/25 Status: Ordered Medication Dispense Status: Completed Quantity: 60.0 Unit: tab(s) Total Allowed Fills: 1 Fills Dispensed: 0 Start: 07-27-2024 Coreg 6.25 mg oral tablet Dose : 6.25 mg = 1 tab(s), Oral, BID, # 60 tab(s), 0 Refill(s), Pharmacy: [facility], 198.1, cm, 07/25/24 19:52:00 EDT, Height, kg, 07/25/24 19:52:00 EDT, Dosing Weight Start Date: 07/27/24 Status: Ordered Start: 07-17-2023 End: 08-16-2023 Coreg 12.5 mg oral tablet Do se : 12.5 mg = 1 tab(s), Oral, BIDM, # 60 tab(s), 0 Refill(s), Pharmacy: [facility], 198.1, cm, 07/16/23 4:07:00 EDT, Height, kg, 07/16/23 4:07:00 EDT, Dosing Weight Start Date: 07/17/23 Stop Date: 08/16/23 Status: Ordered Start: 07-13-2023 take 6.25 mg by mout h twice daily Carvedilol Active 6.25 MG PO TWICE A DAY July 15, 2023 12:00am cloNIDine hydrochloride 0.1 mg oral tablet (6 sources) Central alpha-2 Adrenergic Agonist Start: 07-04-2025 cloNIDine 0.1 mg ora l tablet Dose : 0.2 mg = 2 tab(s), Oral, TID, Take for BP > 140 systolic or > 90 diastolic, or 30-60 min before stressful events, # 90 tab(s), 1 Refill(s), Pharmacy: [facility], Hypertension, 198, cm, 07/04/25 15:41:00 EDT, Height, kg, 07/04/25 15:41:00 EDT, Dosing Weight Start Date: 07/07/25 Status: Ordered Medication Dispense Status: Completed Quantity: 90.0 Unit: tab(s) Total Allowed Fills: 2 Fills Dispensed: 0 Indications: Essential (primary) hypertension; Start: 05-30-2025 cloNIDine 0.1 mg oral tablet Dose : 0.1 mg = 1 tab(s), Oral, TID, Take for BP > 140 systolic or > 90 diastolic, or 30-60 min before stressful events, # 30 tab(s), 1 Refill(s), Pharmacy: [place] [id number], Hypertension, 198, cm, 05/30/25 15:54:00 EDT, Height, kg, 05/30/25 15:54:00 EDT, Dosing Weight Start Date: 05/30/25 Status: Ordered Medication Dispense Status: Completed Quantity: 30.0 Unit: tab(s) Total Allowed Fills: 2 Fills Dispensed: 0 Indications: Essential (primary) hypertension; Start: 06-04-2024 cloNIDine 0.1 mg oral tablet Dose : 0.1 mg = 1 tab(s), Oral, TID, PRN Hypertensive episodes, Take for BP > 180 systolic or > 100 diastolic, or 30-60 min before stressful events, # 30 tab(s), 1 Refill(s), Pharmacy: [place] [id number], (HFpEF) heart failure with preserved ejection fraction History of NH (myocardial infarction), 07/2023, 198, cm, 06/04/24 10:12:00 EDT, Height, kg, 06/04/24 10:12:00 EDT, Dosing Weight Start Date: 06/04/24 Status: Ordered dapagliflozin 10 mg oral tablet (2 sources) Sodium-Glucose Cotransporter 2 Inhibitor Start: 07-27-2024 Farxiga 10 mg oral tablet Dose : 10 mg = 1 tab(s), Oral, qDay, # 30 tab(s), 0 Refill(s), Pharmacy: [facility], 198.1, cm, 07/25/24 19:52:00 EDT, Height, kg, 07/25/24 19:52:00 EDT, Dosing Weight Start Date: 07/27/24 Status: Ordered DME MISCellaneous (6 sources) Start: 04-19-2024 DME MISCellane ous See Instructions, 18 Guage x 1 needle. 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, 198, cm, 04/19/24 15:57:00 EDT, Height, 167.8, kg, 04/19/24 15:57:00 EDT, Dosing Weight Start Date: 04/19/24 Status: Ordered empagliflozin 10 mg oral tablet (11 sources) Sodium-Glucose Cotransporter 2 Inhibitor Start: 05-30-2025 Jardiance 10 mg oral tablet Dose : 10 mg = 1 tab(s), Oral, qAM, # 100 tab(s), 0 Refill(s), Pharmacy: [facility], 198, cm, 05/30/25 15:54:00 EDT, Height, kg, 05/30/25 15:54:00 EDT, Dosing Weight Start Date: 05/30/25 Status: Ordered Medication Dispense Status: Completed Quantity: 100.0 Unit: tab(s) Total Allowed Fills: 1 Fills Dispensed: 0 Start: 09-03-2024 Jardiance 10 m g oral tablet Dose : 10 mg = 1 tab(s), Oral, qAM Start Date: 09/03/24 Status: Ordered Start: 04-29-2024 Jardiance 10 m g oral tablet Dose : 10 mg = 1 tab(s), Oral, qAM, # 30 tab(s), 3 Refill(s), Pharmacy: [facility], 198, cm, 04/19/24 15:57:00 EDT, Height, kg, 04/19/24 15:57:00 EDT, Dosing Weight Start Date: 04/29/24 Status: Ordered Start: 09-24-2023 Jardiance 10 m g oral tablet Dose : 10 mg = 1 tab(s), Oral, qAM, # 30 tab(s), 8 Refill(s), Pharmacy: [facility], 198.1, cm, 09/24/23 10:41:00 EST, Height, kg, 09/24/23 10:41:00 EST, Dosing Weight Start Date: 09/24/23 Status: Ordered famotidine 40 mg oral tablet (5 sources) Histamine-2 Receptor Antagonist Start: 06-06-2025 famotidine 40 mg ora l tablet Dose : 40 mg = 1 tab(s), Oral, qHS, # 30 tab(s), 1 Refill(s), Pharmacy: [facility], GERD (gastroesophageal reflux disease), 198, cm, 06/06/25 15:51:00 EDT, Height, kg, 06/06/25 15:51:00 EDT, Dosing Weight Start Date: 06/06/25 Status: Ordered Medication Dispense Status: Completed Quantity: 30.0 Unit: tab(s) Total Allowed Fills: 2 Fills Dispensed: 0 Indications: Gastro-esophageal reflux disease without esophagitis; Start: 04-10-2020 End: 07-15-2023 take 20 mg by mouth twice daily Famotidine Discontinued 20 MG PO TWICE A DAY April 10, 2020 12:00am July 15, 2023 11:10am furosemide 40 mg oral tablet (7 sources) Loop Diuretic Start: 05-30-2025 Lasix 40 mg or al tablet Dose : 40 mg = 1 tab(s), Oral, qDay, # 100 tab(s), 0 Refill(s), Pharmacy: [facility], 198, cm, 05/30/25 15:54:00 EDT, Height, kg, 05/30/25 15:54:00 EDT, Dosing Weight Start Date: 05/30/25 Status: Ordered Medication Dispense Status: Completed Quantity: 100.0 Unit: tab(s) Total Allowed Fills: 1 Fills Dispensed: 0 Start: 09-03-2024 Lasix 40 mg or al tablet Dose : 40 mg = 1 tab(s), Oral, qDay, # 7 tab(s), 0 Refill(s) Start Date: 09/03/24 Status: Ordered Start: 07-13-2023 take 40 mg by mouth once daily Furosemide Active 40 MG PO DAILY July 15, 2023 12:00am irbesartan 75 mg oral tablet (2 sources) Angiotensin 2 Receptor Andre Start: 07-04-2025 irbesartan 75 mg ora l tablet Dose : 75 mg = 1 tab(s), Oral, qDay, if doing well after 7 days may increase to 150mg dosing, # 30 tab(s), 1 Refill(s), Pharmacy: [facility], Hypertension, 198, cm, 07/04/25 15:41:00 EDT, Height, kg, 07/04/25 15:41:00 EDT, Dosing Weight Start Date: 07/04/25 Status: Ordered Medication Dispense Status: Completed Quantity: 30.0 Unit: tab(s) Total Allowed Fills: 2 Fills Dispensed: 0 Indications: Essential (primary) hypertension; losartan potassium 25 mg oral tablet (1 source) Angiotensin 2 Receptor Andre Start: 07-17-2023 End: 08-16-2023 losartan 25 mg oral tablet Dose : 25 mg = 1 tab(s), Oral, BID, # 60 tab(s), 0 Refill(s), Pharmacy: [facility], 198.1, cm, 07/16/23 4:07:00 EDT, Height, kg, 07/16/23 4:07:00 EDT, Dosing Weight Start Date: 07/17/23 Stop Date: 08/16/23 Status: Ordered metFORMIN hydrochloride 500 mg oral tablet (1 source) Biguanide Start: 07-15-2025 MetFORMIN (Eqv-Fortamet) 500 mg oral tablet, EXTENDED RELEASE Dose : 500 mg = 1 tab(s), Oral, qDay, Okay to substitute for generic Glucophage XR, # 30 tab(s), 0 Refill(s), Pharmacy: [facility], Type 2 diabetes mellitus with complications, 198, cm, 07/15/25 16:05:00 EDT, Height, kg, 07/15/25 16:05:00 EDT, Dosing Weight Start Date: 07/15/25 Status: Ordered Medication Dispense Status: Completed Quantity: 30.0 Unit: tab(s) Total Allowed Fills: 1 Fills Dispensed: 0 Indications: Type 2 diabetes mellitus with unspecified complications; 24 hr metoprolol succinate 25 mg extended release oral tablet (8 sources) beta-Adrenergic Andre Start: 01-26-2024 metoprolol succinate 25 mg oral TABLET extended release Dose : 25 mg = 1 tab(s), Oral, qDay, Do not crush or chew (controlled release), # 90 tab(s), 1 Refill(s), Pharmacy: [facility], 198.1, cm, 12/05/23 10:01:00 EST, Height, kg, 12/05/23 10:01:00 EST, Dosing Weight Start Date: 01/26/24 Status: Ordered Start: 09-24-2023 metoprolol suc cinate 50 mg oral TABLET extended release Dose : 50 mg = 1 tab(s), Oral, qHS, Do not crush or chew (controlled release), # 90 tab(s), 5 Refill(s), Pharmacy: [facility], 198.1, cm, 09/24/23 10:41:00 EST, Height, kg, 09/24/23 10:41:00 EST, Dosing Weight Start Date: 09/24/23 Status: Ordered Start: 08-29-2023 metoprolol suc cinate 50 mg oral TABLET extended release Dose : 50 mg = 1 tab(s), Oral, qHS, Do not crush or chew (controlled release), # 30 tab(s), 5 Refill(s), Pharmacy: [facility], 198.1, cm, 08/29/23 11:35:00 EDT, Height, kg, 08/29/23 11:35:00 EDT, Dosing Weight Start Date: 08/29/23 Status: Ordered Start: 07-13-2023 End: 07-13-2023 take 0.5 tablet by mouth in the morning Toprol-XL Start: 07/13/23 8:00:00 AM EDT, Dose = 12.5 mg, = 0.5 tab(s), Oral, Hold if SBP (mmHg) Start Date: 07/13/23 Stop Date: 07/13/23 Status: Completed Start: 07-12-2023 End: 07-12-2023 take 0.5 tablet by mouth in the morning Toprol-XL Start: 07/12/23 8:00:00 AM EDT, Dose = 12.5 mg, = 0.5 tab(s), Oral, Hold if SBP (mmHg) Start Date: 07/12/23 Stop Date: 07/12/23 Status: Completed [facility] Medication (1 source) Start: 07-25-2024 [facility] Medicatio n 0 Refill(s), 180.4 Start Date: 07/25/24 Status: Ordered nitroglycerin 0.4 mg sublingual tablet (4 sources) Nitrate Vasodilator Start: 06-06-2025 nitroglyce rin 0.4 mg sublingual tablet 0.4 mg Dose = 1 tab(s), Sublingual, q5min, PRN for chest pain, # 25 tab(s), 0 Refill(s), Pharmacy: [facility], (HFpEF) heart failure with preserved ejection fraction CAD (coronary artery disease), 198, cm, 06/06/25 15:51:00 EDT, Height, kg, 06/06/25 15:51:00 EDT, Dosing Weight Start Date: 06/06/25 Status: Ordered Medication Dispense Status: Completed Quantity: 25.0 Unit: tab(s) Total Allowed Fills: 1 Fills Dispensed: 0 Indications: Unspecified diastolic (congestive) heart failure; Atherosclerotic heart disease of [place] coronary artery without angina pectoris; pantoprazole 40 mg delayed release oral tablet (11 sources) Proton Pump Inhibitor Start: 06-06-2025 pantoprazole 40 mg o ral enteric coated tablet Dose : 40 mg = 1 tab(s), Oral, qDay, # 30 tab(s), 0 Refill(s), Pharmacy: [facility], GERD (gastroesophageal reflux disease), 198, cm, 06/06/25 15:51:00 EDT, Height, kg, 06/06/25 15:51:00 EDT, Dosing Weight Start Date: 06/06/25 Status: Ordered Medication Dispense Status: Completed Quantity: 30.0 Unit: tab(s) Total Allowed Fills: 1 Fills Dispensed: 0 Indications: Gastro-esophageal reflux disease without esophagitis; Start: 05-17-2024 End: 05-27-2024 Protonix 40 mg oral enteric coated tablet Dose : 40 mg = 1 tab(s), Oral, Every other day, Take every other day x 10 days then stop. Ok to stop any future Rx from Pharmacy, we are discontinuing, # 5 tab(s), 0 Refill(s), Pharmacy: [facility], 198, cm, 05/17/24 15:31:00 EDT, Height, kg, 05/17/24 15:22:00 EDT, Dosing Weight Start Date: 05/17/24 Stop Date: 05/27/24 Status: Ordered Start: 02-13-2024 Protonix 40 mg oral enteric coated tablet Dose : 40 mg = 1 tab(s), Oral, qDayAC, # 90 tab(s), 0 Refill(s), Pharmacy: [facility], 194, cm, 02/09/24 14:13:00 EDT, Height, kg, 02/09/24 14:13:00 EDT, Dosing Weight Start Date: 02/13/24 Status: Ordered Start: 07-17-2023 End: 08-16-2023 Protonix 40 mg oral enteric coated tablet Dose : 40 mg = 1 tab(s), Oral, qDayAC, # 90 tab(s), 2 Refill(s), Pharmacy: [facility], 198.1, cm, 07/23/23 11:12:00 EDT, Height, kg, 07/23/23 11:12:00 EDT, Dosing Weight Start Date: 08/14/23 Status: Ordered prasugrel 10 mg oral tablet (11 sources) [id number] Platelet Inhibitor Start: 01-27-2024 prasugrel 10 mg oral tablet Dose : 10 mg = 1 tab(s), Oral, qDay, # 90 tab(s), 1 Refill(s), Pharmacy: [facility], 198.1, cm, 12/05/23 10:01:00 EST, Height, kg, 12/05/23 10:01:00 EST, Dosing Weight Start Date: 01/27/24 Status: Ordered Start: 08-14-2023 prasugrel 10 m g oral tablet Dose : 10 mg = 1 tab(s), Oral, qDay, # 90 tab(s), 2 Refill(s), Pharmacy: [facility], 198.1, cm, 07/23/23 11:12:00 EDT, Height, kg, 07/23/23 11:12:00 EDT, Dosing Weight Start Date: 08/14/23 Status: Ordered Start: 07-13-2023 prasugrel 10 m g oral tablet Dose : 10 mg = 1 tab(s), Oral, qDay, # 30 tab(s), 0 Refill(s), Pharmacy: [facility], 198.1, cm, 07/11/23 3:21:00 EDT, Height, kg, 07/11/23 3:21:00 EDT, Dosing Weight Start Date: 07/13/23 Status: Ordered predniSONE 50 mg oral tablet (4 sources) Start: 08-08-2025 End: 08-13-2025 predniSONE 50 mg oral tablet Dose : 50 mg = 1 tab(s), Oral, qDay, Take with food, X 5 day(s), # 5 tab(s), 0 Refill(s), 08/13/25 12:00:00 AM EDT Start Date: 08/08/25 Stop Date: 08/13/25 Status: Ordered Medication Dispense Status: Completed Quantity: 5.0 Unit: tab(s) Total Allowed Fills: 1 Fills Dispensed: 0 Start: 06-26-2025 End: 06-30-2025 predniSONE 20 mg oral tablet Dose : 60 mg = 3 tab(s), Oral, qDay, X 4 day(s), # 12 tab(s), 0 Refill(s), 06/30/25 9:05:00 PM EDT Start Date: 06/26/25 Stop Date: 06/30/25 Status: Ordered Medication Dispense Status: Completed Quantity: 12.0 Unit: tab(s) Total Allowed Fills: 1 Fills Dispensed: 0 Start: 04-10-2020 End: 07-15-2023 take 60 mg by mouth once daily at mealtime Prednisone Discontinued 60 MG PO DAILY May 05, 2020 12:00am July 15, 2023 11:10am With food sacubitril 49 mg / valsartan 51 mg oral tablet (16 sources) Angiotensin 2 Receptor Andre Start: 05-30-2025 Entresto 49 mg-51 mg oral tablet Dose = 1 tab(s), Oral, BID, Currently taking once daily, # 200 tab(s), 0 Refill(s), Pharmacy: [facility], 198, cm, 05/30/25 15:54:00 EDT, Height, kg, 05/30/25 15:54:00 EDT, Dosing Weight Start Date: 05/30/25 Status: Ordered Medication Dispense Status: Completed Quantity: 200.0 Unit: tab(s) Total Allowed Fills: 1 Fills Dispensed: 0 Start: 07-27-2024 take 1 tablet by paco th twice daily Entresto 49 mg-51 mg oral tablet Dose = 1 tab(s), Oral, BID, # 60 tab(s), 0 Refill(s), Pharmacy: [facility], 198.1, cm, 07/25/24 19:52:00 EDT, Height, kg, 07/25/24 19:52:00 EDT, Dosing Weight Start Date: 07/27/24 Status: Ordered Start: 09-24-2023 take 1 tablet by paco th twice daily Entresto 97 mg-103 mg oral tablet Dose = 1 tab(s), Oral, BID, # 180 tab(s), 7 Refill(s), Pharmacy: [facility], 198.1, cm, 09/24/23 10:41:00 EST, Height, kg, 09/24/23 10:41:00 EST, Dosing Weight Start Date: 09/24/23 Status: Ordered Start: 08-14-2023 take 1 tablet by paco twice daily Entresto 49 mg-51 mg oral tablet Dose = 1 tab(s), Oral, BID, # 180 tab(s), 2 Refill(s), Pharmacy: [facility], 198.1, cm, 07/23/23 11:12:00 EDT, Height, kg, 07/23/23 11:12:00 EDT, Dosing Weight Start Date: 08/14/23 Status: Ordered Start: 07-13-2023 take 1 tablet by [facility] twice daily Sacubitril-Valsartan (Entresto) 24-26 mg tablet Active 1 TABLET PO TWICE A DAY July 15, 2023 12:00am sildenafil 25 mg oral tablet (4 sources) Phosphodiesterase 5 Inhibitor Start: 12-05-2023 sildenafil 25 mg oral tablet See Instructions, as needed, # 5 tab(s), 0 Refill(s), Pharmacy: [facility], 198.1, cm, 12/05/23 10:01:00 EST, Height, kg, 12/05/23 10:01:00 EST, Dosing Weight Start Date: 12/05/23 Status: Ordered spironolactone 25 mg oral tablet (12 sources) Aldosterone Antagonist Start: 05-30-2025 Aldacto ne 25 mg oral tablet Dose : 25 mg = 1 tab(s), Oral, Every other day, # 50 tab(s), 0 Refill(s), Pharmacy: [facility], 198, cm, 05/30/25 15:54:00 EDT, Height, kg, 05/30/25 15:54:00 EDT, Dosing Weight Start Date: 05/30/25 Status: Ordered Medication Dispense Status: Completed Quantity: 50.0 Unit: tab(s) Total Allowed Fills: 1 Fills Dispensed: 0 Start: 07-27-2024 Aldactone 25 m g oral tablet Dose : 12.5 mg = 0.5 tab(s), Oral, qDay, # 15 tab(s), 0 Refill(s), Pharmacy: [facility], 198.1, cm, 07/25/24 19:52:00 EDT, Height, kg, 07/25/24 19:52:00 EDT, Dosing Weight Start Date: 07/27/24 Status: Ordered Start: 02-13-2024 spironolactone 25 mg oral tablet Dose : 25 mg = 1 tab(s), Oral, qDayM, # 90 tab(s), 2 Refill(s),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 911 pg/mL AH ADM SS Creatinine [Mass/Vol] 1.97 mg/dL High 0.67 - 1.17 mg/dL AO ADM SS Electrolyte Balance 13.0 mEq/L Normal 4.0 - 15 .0 mEq/L AO ADM SS Estimated Glomerular Filtration Rate 44 ml/min/1.73sqm Invalid Interpretation Code AO Chemistry S Comment on above: Interpretive Data: Stages of Chronic Kidney Disease (CKD) Stage Description eGFR(ml/min/1.73 sq.m.) CKD 1 Normal kidney function or >=90 normal kindney function with possible kidney damage (ex. Proteinuria) CKD 2 Kidney damage with mild loss 60-89 of kidney function CKD 3a Mild to moderate loss of kidney 45-59 function CKD 3b Moderate to severe loss of 30-44 of kindey function CKD 4 Severe loss of kidney function 15-29 CKD 5 Kidney failure <15 Note: (go live 2024) the eGFR calculation was updated to the 2020 CKD-EPI creatinine equation without a race factor to calculate the eGFR results. Ferritin [Mass/Vol] 292.0 ng/mL Normal 26.0 - 3 88.0 ng/mL AO ADM SS Globulin 4.5 G/dL High 2.7 - 4.4 G/dL AO ADM SS Glucose [Mass/Vol] 222 mg/dL High 70 - 105 mg/dL AO ADM SS Iron [Mass/Vol] 76 ug/dL Normal 65 - 175 mcg/dL AO ADM SS Iron binding capacity [Mass/Vol] 431 mcg/dL Normal 250 - 450 mcg/dL AO ADM SS Iron Sat 18 % Invalid Interpretation Code AO ADM SS Potassium [Moles/Vol] 3.8 mmol/L Normal 3.5 - 5.1 mmol/L AO ADM SS Protein [Mass/Vol] 8.4 G/dL High 6.4 - 8.2 G/dL AO ADM SS Sodium [Moles/Vol] 138 mmol/L Normal 136 - 145 mmol/L AO ADM SS TSH Qn 1.54 m[IU]/L Normal 0.36 - 3.74 mcIU/mL AO ADM SS Urea nitrogen [Mass/Vol] 31 mg/dL High 7 - 18 mg/dL AO ADM SS Urea nitrogen/Creatinine [Mass ratio] 16 ratio Normal 7 - 27 ratio AO ADM SS LABORATORYOrdered By: Marcio Kay on 07-04-2025 Cholesterol [Mass/Vol] 321 mg/dL High 0 - 200 mg/dL AO ADM SS Comment on above: Interpretive Data: C holesterol Reference Interval: Less than 200 Desirable 200-239 Borderline high risk 240 and above High risk Cholesterol in HDL [Mass/Vol] 33 mg/dL Low 40 - 60 mg/dL AO ADM SS Cholesterol in LDL [Mass/Vol] 177 mg/dL High 0 - 99 mg/dL AO ADM SS Comment on above: Interpretive Data: D irect LDL Cholesterol Reference Interval: Optimal: <100 mg/dL Near Optimal/above optimal: 100-129 mg/dL Borderline high: 130-159 mg/dL High: 160-189 mg/dL Very high: >=190 mg/dL LDL Cholesterol Not Valid Invalid Interpretation Code 0 - 130 AO ADM SS Comment on above: Result Comment: Trig lyceride >400 invalidates the calculated LDL. Triglyceride [Mass/Vol] 922 mg/dL High 0 - 150 mg/dL AO ADM Comment on above: Interpretive Data: T riglyceride Reference Interval: Less than 150 Normal 150-199 Borderline high risk 200-499 High risk 500 or higher Very high risk LIPIDon 07-04-2025 Cholesterol [Mass/Vol] 321 mg/dL High 0-[address] [facility] Comment on above: Result Comment: Chol esterol Reference Interval: Less than 200 Desirable 200-239 Borderline high risk 240 and above High risk Performed By: #### D LDL, FES, VIDH, 915266, 748649, 718771, FERR, CMP, TSHR, GFR, LIPID #### [facility] [address] [place], [place] [address] #### B12 #### [facility] [address] [place] [address] Cholesterol in HDL [Mass/Vol] 33 mg/dL Low 40-[address] [facility] Comment on above: Performed By: #### D LDL, FES, VIDH, 912607, 273878, 463123, FERR, CMP, TSHR, GFR, LIPID #### [address] [address] #### B12 #### [place] [address] LDL Cholesterol Not Valid Normal 0-[address] [facility] Comment on above: Result Comment: Trig lyceride >400 invalidates the calculated LDL. Performed By: #### D LDL, FES, VIDH, 699123, 427765, 677513, FERR, CMP, TSHR, GFR, LIPID #### [address] [address] #### B12 #### [place] [address] Triglyceride [Mass/Vol] 922 mg/dL High 0-[address] [facility] Comment on above: Result Comment: Trig lyceride Reference Interval: Less than 150 Normal 150-199 Borderline high risk 200-499 High risk 500 or higher Very high risk Performed By: #### D LDL, FES, VIDH, 185259, 912137, 793555, FERR, CMP, TSHR, GFR, LIPID #### [place] [address] #### B12 #### [place] [address] TSHRon 07-04-2025 TSH Qn 1.54 m[IU]/L Normal 0.36-3.[address] [facility] Comment on above: Performed By: #### D LDL, FES, VIDH, 129499, 979919, 438370, FERR, CMP, TSHR, GFR, LIPID #### [address] [address] #### B12 #### [place] [address] VIDHon 07-04-2025 Vit. D 25-Hydroxy 16.4 ng/mL Normal [facility] Comment on above: Result Comment: Inte rpretive Values Based on Total 25(OH) Vitamin D: Deficient <20 ng/mL Insufficient 20 - <30 ng/mL Sufficient 30-100 ng/mL Performed By: #### D LDL, FES, VIDH, 903808, 737104, 167133, FERR, CMP, TSHR, GFR, LIPID #### [address] [address] #### B12 #### [address] [address] .Auto Diffon 06-26-2025 Basophil, Absolute 0.1 10 3/mcL Normal 0.0-0.3 [facility] Comment on above: Performed By: #### D LDL, FES, VIDH, 112487, 457180, 326808, FERR, CMP, TSHR, GFR, LIPID #### [address] [address] #### B12 #### [address] [address] Basophils/100 WBC (Bld) 0.8 % Normal 0.0-2.[address] [facility] Comment on above: Performed By: #### D LDL, FES, VIDH, 487321, 131443, 158634, FERR, CMP, TSHR, GFR, LIPID #### [address] [address] #### B12 #### [address] [address] Eosinophil, Absolute 0.8 10 3/mcL High 0.0-0.[address] [facility] Comment on above: Performed By: #### D LDL, FES, VIDH, 589442, 756416, 694388, FERR, CMP, TSHR, GFR, LIPID #### [address] [address] #### B12 #### [address] [address] Eosinophils/100 WBC (Bld) 8.2 % High 0.0-6.[address] [facility] Comment on above: Performed By: #### D LDL, FES, VIDH, 185206, 677858, 446857, FERR, CMP, TSHR, GFR, LIPID #### [address] [place] [address] #### B12 #### [address] [address] Lymphocyte, Absolute 2.8 10 3/mcL Normal 0.9-4.[address] [facility] Comment on above: Performed By: #### D LDL, FES, VIDH, 999940, 877378, 506779, FERR, CMP, TSHR, GFR, LIPID #### [address] [address] #### B12 #### [address] [address] Lymphocytes/100 WBC (Bld) 28.5 % Normal 20.0-40.[address] [facility] Comment on above: Performed By: #### D LDL, FES, VIDH, 574604, 153400, 246827, FERR, CMP, TSHR, GFR, LIPID #### [place] [address] #### B12 #### [address] [address] Monocyte, Absolute 0.6 10 3/mcL Normal 0.1-1.4 [facility] Comment on above: Performed By: #### D LDL, FES, VIDH, 699560, 869183, 259743, FERR, CMP, TSHR, GFR, LIPID #### [address] [address] #### B12 #### [address] [address] Monocytes/100 WBC (Bld) 6.3 % Normal 2.0-13.[address] [facility] Comment on above: Performed By: #### D LDL, FES, VIDH, 018761, 195274, 835518, FERR, CMP, TSHR, GFR, LIPID #### [address] [address] #### B12 #### [address] [address] Neutrophils/100 WBC (Bld) 56.2 % Normal 50.0-75.[address] [facility] Comment on above: Performed By: #### D LDL, FES, VIDH, 767996, 194260, 478184, FERR, CMP, TSHR, GFR, LIPID #### [address] [address] #### B12 #### [address] [address] .GFRon 06-26-2025 Estimated Glomerular Filtration Rate 88 ml/min/1.73sqm Normal [facility] Comment on above: Result Comment: Stages of Chronic Kidney Disease (CKD) Stage Description eGFR(ml/min/1.73 sq.m.) CKD 1 Normal kidney function or >=90 normal kindney function with possible kidney damage (ex. Proteinuria) CKD 2 Kidney damage with mild loss 60-89 of kidney function CKD 3a Mild to moderate loss of kidney 45-59 function CKD 3b Moderate to severe loss of 30-44 of kindey function CKD 4 Severe loss of kidney function 15-29 CKD 5 Kidney failure <15 Note: (go live 2024) the eGFR calculation was updated to the 2020 CKD-EPI creatinine equation without a race factor to calculate the eGFR results. Performed By: #### D LDL, FES, VIDH, 725216, 095586, 061060, FERR, CMP, TSHR, GFR, LIPID #### [address] [address] #### B12 #### [address] [address] .MDWon 06-26-2025 Monocyte Distribution Width 17.43 Normal 0.00-20.[address] [facility] Comment on above: Result Comment: For ED adult patients suspected of sepsis, MDW<=20.0 does not rule out sepsis or risk of sepsis Performed By: #### D LDL, FES, VIDH, 744015, 311544, 919997, FERR, CMP, TSHR, GFR, LIPID #### [address] [address] #### B12 #### [address] [address] .NEUABSon 06-26-2025 Neutrophil, Absolute 5.6 10 3/mcL Normal 2.3-8.[address] [facility] Comment on above: Performed By: #### D LDL, FES, VIDH, 081722, 152928, 950924, FERR, CMP, TSHR, GFR, LIPID #### [address] [address] #### B12 #### [address] [address] BMPon 06-26-2025 BUN/Creatinine Ratio 12 ratio Normal 7-[address] [facility] Comment on above: Performed By: #### D LDL, FES, VIDH, 900356, 752742, 773563, FERR, CMP, TSHR, GFR, LIPID #### [address] [address] #### B12 #### [address] [address] Calcium [Mass/Vol] 9.9 mg/dL Normal 8.4-10.2 [facility] Comment on above: Performed By: #### D LDL, FES, VIDH, 340870, 875801, 321495, FERR, CMP, TSHR, GFR, LIPID #### [address] [address] #### B12 #### [address] [address] Chloride [Moles/Vol] 99 mmol/L Normal 98-[address] [facility] Comment on above: Performed By: #### D LDL, FES, VIDH, 380900, 249186, 772884, FERR, CMP, TSHR, GFR, LIPID #### [address] [address] #### B12 #### [address] [address] CO2 [Moles/Vol] 28 mmol/L Normal 22-[address] [facility] Comment on above: Performed By: #### D LDL, FES, VIDH, 967359, 425581, 628090, FERR, CMP, TSHR, GFR, LIPID #### [address] [address] #### B12 #### [address] [address] Creatinine [Mass/Vol] 1.10 mg/dL Normal 0.67-1.[address] [facility] Comment on above: Performed By: #### D LDL, FES, VIDH, 122516, 490953, 844868, FERR, CMP, TSHR, GFR, LIPID #### [address] [address] #### B12 #### [address] [address] Electrolyte Balance 9.0 mEq/L Normal 4.0-15.0 [facility] Comment on above: Performed By: #### D LDL, FES, VIDH, 278379, 125369, 564281, FERR, CMP, TSHR, GFR, LIPID #### [place] [address] #### B12 #### [address] [address] Glucose [Mass/Vol] 288 mg/dL High 70-105 [facility] Comment on above: Performed By: #### D LDL, FES, VIDH, 650390, 269489, 498972, FERR, CMP, TSHR, GFR, LIPID #### [address] [address] #### B12 #### [address] [address] Potassium [Moles/Vol] 3.9 mmol/L Normal 3.5-5.[address] [facility] Comment on above: Performed By: #### D LDL, FES, VIDH, 228140, 734963, 733970, FERR, CMP, TSHR, GFR, LIPID #### [address] [address] #### B12 #### [address] [address] Sodium [Moles/Vol] 136 mmol/L Normal 136-145 [facility] Comment on above: Performed By: #### D LDL, FES, VIDH, 632770, 060346, 566921, FERR, CMP, TSHR, GFR, LIPID #### [address] [address] #### B12 #### [address] [address] Urea nitrogen [Mass/Vol] 13 mg/dL Normal 7-[address] [facility] Comment on above: Performed By: #### D LDL, FES, VIDH, 841637, 601346, 011589, FERR, CMP, TSHR, GFR, LIPID #### [address] [address] #### B12 #### [address] [address] CBCon 06-26-2025 Erythrocyte distribution width (RBC) [Ratio] 13.8 % Normal 11.5-15.[address] [facility] Comment on above: Performed By: #### D LDL, FES, VIDH, 911240, 948626, 631169, FERR, CMP, TSHR, GFR, LIPID #### [place] [address] #### B12 #### [place] [address] Hematocrit (Bld) [Volume fraction] 45.8 % Normal 40.0-52.[address] [facility] Comment on above: Performed By: #### D LDL, FES, VIDH, 233917, 564980, 879677, FERR, CMP, TSHR, GFR, LIPID #### [address] [address] #### B12 #### [place] [address] Hgb 15.7 G/dL Normal 13.0-17.[address] [facility] Comment on above: Performed By: #### D LDL, FES, VIDH, 922839, 275461, 589179, FERR, CMP, TSHR, GFR, LIPID #### [address] [address] #### B12 #### [address] [address] MCH (RBC) [Entitic mass] 29.3 pg Normal 27.0-33.[address] [facility] Comment on above: Performed By: #### D LDL, FES, VIDH, 430085, 625996, 354156, FERR, CMP, TSHR, GFR, LIPID #### [address] [address] #### B12 #### [place] [address] MCHC 34.3 G/dL Normal 32.0-36.[address] [facility] Comment on above: Performed By: #### D LDL, FES, VIDH, 779461, 760750, 343947, FERR, CMP, TSHR, GFR, LIPID #### [place] [address] #### B12 #### [place] [address] MCV (RBC) [Entitic vol] 85.3 fL Normal 81.0-100.[address] [facility] Comment on above: Performed By: #### D LDL, FES, VIDH, 796877, 497174, 963008, FERR, CMP, TSHR, GFR, LIPID #### [place] [address] #### B12 #### [place] [address] Platelet 272 10 3/mcL Normal 150-[address] [facility] Comment on above: Performed By: #### D LDL, FES, VIDH, 780623, 237835, 716239, FERR, CMP, TSHR, GFR, LIPID #### [place] [address] #### B12 #### [place] [address] Platelet mean volume (Bld) [Entitic vol] 9.5 fL Normal 6.4-10.[address] [facility] Comment on above: Performed By: #### D LDL, FES, VIDH, 580556, 259304, 924155, FERR, CMP, TSHR, GFR, LIPID #### [address] [address] #### B12 #### [address] [address] RBC 5.37 10 6/mcL Normal 4.50-6.[address] [facility] Comment on above: Performed By: #### D LDL, FES, VIDH, 263289, 626982, 107874, FERR, CMP, TSHR, GFR, LIPID #### [place] [address] #### B12 #### [place] [address] WBC 9.9 10 3/mcL Normal 4.5-10.[address] [facility] Comment on above: Performed By: #### D LDL, FES, VIDH, 104331, 822842, 901509, FERR, CMP, TSHR, GFR, LIPID #### [place] [address] #### B12 #### [place] [address] DIMERon 06-26-2025 D-Dimer <200 Normal 0-[address] [facility] Comment on above: Result Comment: DDN: Results reported in D-DU ng/mL. Negative for D-dimer. DVT/PE is highly unlikely. Note: False negative results may be seen in patients on anticoagulant therapy. The result of the D-Dimer test should be evaluated in the context of all the clinical and laboratory data available. In those instances where the laboratory result does not agree with the clinical evaluation, additional tests should be performed accordingly. If the D-Dimer result is used to exclude DVT or PE, the recommended cutoff value is less than 230 ng/mL. The D-Dimer result should not be used alone to rule in DVT/PE, but should be used in conjunction with a clinical pretest probability (PTP)assessment model to exclude venous thromboembolism (VTE) in patients suspected of deep venous thrombosis (DVT) and pulmonary embolism (PE). Performed By: #### D LDL, FES, VIDH, 308973, 011488, 957319, FERR, CMP, TSHR, GFR, LIPID #### [address] [address] #### B12 #### [address] [address] LABORATORYOrdered By: SYSTEM SYSTEM on 06-26-2025 Basophils (Bld) [#/Vol] 0.1 103/mcL Normal 0.0 - 0.3 10^3/mcL AO Workflow SS Basophils/100 WBC (Bld) 0.8 % Normal 0.0 - 2.5 % AO Workflow SS Calcium [Mass/Vol] 9.9 mg/dL Normal 8.4 - 10. 2 mg/dL AO ADM SS Chloride [Moles/Vol] 99 mmol/L Normal 98 - 107 mmol/L AO ADM SS CO2 [Moles/Vol] 28 mmol/L Normal 22 - 29 mmol/L AO ADM SS Creatinine [Mass/Vol] 1.10 mg/dL Normal 0.67 - 1.17 mg/dL AO ADM SS Electrolyte Balance 9.0 mEq/L Normal 4.0 - 15 .0 mEq/L AO ADM SS Eosinophil, Absolute 0.8 103/mcL High 0.0 - 0.7 10^3/mcL AO Workflow SS Eosinophils/100 WBC (Bld) 8.2 % High 0.0 - 6.0 % AO Workflow SS Erythrocyte distribution width (RBC) [Ratio] 13.8 % Normal 11.5 - 15.5 % AO Workflow SS Estimated Glomerular Filtration Rate 88 ml/min/1.73sqm Invalid Interpretation Code AO Chemistry S Comment on above: Interpretive Data: Stages of Chronic Kidney Disease (CKD) Stage Description eGFR(ml/min/1.73 sq.m.) CKD 1 Normal kidney function or >=90 normal kindney function with possible kidney damage (ex. Proteinuria) CKD 2 Kidney damage with mild loss 60-89 of kidney function CKD 3a Mild to moderate loss of kidney 45-59 function CKD 3b Moderate to severe loss of 30-44 of kindey function CKD 4 Severe loss of kidney function 15-29 CKD 5 Kidney failure <15 Note: (go live 2024) the eGFR calculation was updated to the 2020 CKD-EPI creatinine equation without a race factor to calculate the eGFR results. Fibrin D-dimer DDU (PPP) [Mass/Vol] ng/mL D-DU Normal 0 - 230 ng/mL D-DU AO [facility] SS Comment on above: Result Comment: DDN: Results reported in D-DU ng/mL. Negative for D-dimer. DVT/PE is highly unlikely. Note: False negative results may be seen in patients on anticoagulant therapy. Interpretive Data: T he result of the D-Dimer test should be evaluated in the context of all the clinical and laboratory data available. In those instances where the laboratory result does not agree with the clinical evaluation, additional tests should be performed accordingly. If the D-Dimer result is used to exclude DVT or PE, the recommended cutoff value is less than 230 ng/mL. The D-Dimer result should not be used alone to rule in DVT/PE, but should be used in conjunction with a clinical pretest probability (PTP)assessment model to exclude venous thromboembolism (VTE) in patients suspected of deep venous thrombosis (DVT) and pulmonary embolism (PE). Glucose [Mass/Vol] 288 mg/dL High 70 - 105 mg/dL AO ADM SS Hematocrit (Bld) [Volume fraction] 45.8 % Normal 40.0 - 52.0 % AO Workflow SS Hemoglobin (Bld) [Mass/Vol] 15.7 G/dL Normal 13.0 - 17.5 G/dL AO Workflow SS Lymphocytes (Bld) [#/Vol] 2.8 103/mcL Normal 0.9 - 4.3 10^3/mcL AO Workflow SS Lymphocytes/100 WBC (Bld) 28.5 % Normal 20.0 - 40.0 % AO Workflow SS MCH (RBC) [Entitic mass] 29.3 pg Normal 27.0 - 33.0 pg AO Workflow SS MCHC 34.3 G/dL Normal 32.0 - 36.0 G/dL AO Workflow SS MCV (RBC) [Entitic vol] 85.3 fL Normal 81.0 - 100.0 fL AO Workflow SS Monocyte distribution width Auto (Bld) [Entitic vol] 17.43 1 Normal 0.00 - 20.00 AO Workflow SS Comment on above: Result Comment: For ED adult patients suspected of sepsis, MDW<=20.0 does not rule out sepsis or risk of sepsis Monocytes (Bld) [#/Vol] 0.6 103/mcL Normal 0.1 - 1.4 10^3/mcL AO Workflow SS Monocytes/100 WBC (Bld) 6.3 % Normal 2.0 - 13.0 % AO Workflow SS Natriuretic peptide.B prohormone N-Terminal [Mass/Vol] 123 pg/mL Normal 0 - 125 pg/mL AO ADM SS Comment on above: Interpretive Data: N T-proBNP results of less than 300 pg/mL effectively rules out acute congestive heart failure with 99% negative predictive value. Neutrophils (Bld) [#/Vol] 5.6 103/mcL Normal 2.3 - 8.1 10^3/mcL AO Workflow SS Neutrophils/100 WBC (Bld) 56.2 % Normal 50.0 - 75.0 % AO Workflow SS Platelet mean volume (Bld) [Entitic vol] 9.5 fL Normal 6.4 - 10.5 fL AO Workflow SS Platelets (Bld) [#/Vol] 272 103/mcL Normal 150 - 450 10^3/mcL AO Workflow SS Potassium [Moles/Vol] 3.9 mmol/L Normal 3.5 - 5.1 mmol/L AO ADM SS RBC (Bld) [#/Vol] 5.37 106/mcL Normal 4.50 - 6.0 0 10^6/mcL AO Workflow SS Sodium [Moles/Vol] 136 mmol/L Normal 136 - 145 mmol/L AO ADM SS Troponin I.cardiac DL <= 0.01 ng/mL [Mass/Vol] 71 ng/L Normal 0 - 76 ng/L AO ADM SS Comment on above: Interpretive Data: H igh Sensitive Troponin I Reference Ranges: Female: 0-51 ng/L Male: 0-76 ng/L Testing performed on [employer] using a homogeneous sandwich chemiluminescent immunoassay based on [employer] technology. Urea nitrogen [Mass/Vol] 13 mg/dL Normal 7 - 18 mg/dL AO ADM SS Urea nitrogen/Creatinine [Mass ratio] 12 ratio Normal 7 - 27 ratio AO ADM SS WBC (Bld) [#/Vol] 9.9 103/mcL Normal 4.5 - 10.8 10^3/mcL AO Workflow SS PBNPon 06-26-2025 Natriuretic peptide B (Bld) [Mass/Vol] 123 pg/mL Normal 0-[address] [facility] Comment on above: Result Comment: NT-p roBNP results of less than 300 pg/mL effectively rules out acute congestive heart failure with 99% negative predictive value. Performed By: #### D LDL, FES, VIDH, 439898, 824072, 718856, FERR, CMP, TSHR, GFR, LIPID #### [place] [id number] [place], [place] [address] #### B12 #### [address] [address] TROPHSon 06-26-2025 High Sensitivity Troponin I 71 ng/L Normal 0-[address] [facility] Comment on above: Result Comment: High Sensitive Troponin I Reference Ranges: Female: 0-51 ng/L Male: 0-76 ng/L Testing performed on [employer] using a homogeneous sandwich chemiluminescent immunoassay based on [employer] technology. Performed By: #### D LDL, FES, VIDH, 485806, 132081, 243533, FERR, CMP, TSHR, GFR, LIPID #### [address] [address] #### B12 #### [address] [address] XR CHEST 1 VIEWon 06-26-2025 XR CHEST 1 VIEW ORIGINAL EXAMINATION: ONE XRAY VIEW OF THE CHEST06/26/2025 8:41 pm COMPARISON: Chest radiograph 09/03/2024. HISTORY: ORDERING SYSTEM PROVIDED HISTORY: Reason for Exam: chest pain FINDINGS: Cardiomediastinal contours are stable. No focal consolidation or pulmonary edema. No pneumothorax or pleural effusion. No acute osseous abnormalities. IMPRESSION: No focal consolidation. I have personally reviewed the images of this examination and agree with the resident's findings and interpretation. Interpreted by: Sukh Sandoval Preliminary Report By: Titus Herrera Electronically signed By Sukh Sandoval Dictated Date: 06/26/2025 8:52:18 PM Prelim Date: 06/26/2025 8:53:57 PM Sign Date: 06/26/2025 8:54:47 PM Ordering Provider: LUIS Marquez [facility] CBC (H/H, RBC, INDICES, WBC, PLT)on 05-31-2025 Erythrocyte distribution width (RBC) [Ratio] 12.0 % Normal 11.0-15.0 [facility] Comment on above: Performed By: #### 7 600, [address], 1759, [address] #### [facility] [address], [address] [place] [address] Inverted Block Operator: Claudy Price MD Hematocrit (Bld) [Volume fraction] 45.4 % Normal 38.5-50.0 [facility] Comment on above: Performed By: #### 7 600, 27581, 1758, [id number] #### [facility] [place] [address] Inverted Block Operator: Claudy Price MD Hemoglobin (Bld) [Mass/Vol] 15.2 g/dL Normal 13.2-17.1 [facility] Comment on above: Performed By: #### 7 600, 82735, 1758, #### [facility] [place] [address] Inverted Block Operator: Claudy Price MD MCH (RBC) [Entitic mass] 29.5 pg Normal 27.0-33.0 [facility] Comment on above: Performed By: #### 7 600, 72377, 1758, 93083 #### [facility] [place] [address] Inverted Block Operator: Claudy Price MD MCHC (RBC) [Mass/Vol] 33.5 g/dL Normal 32.0-36.0 [facility] Comment on above: Result Comment: For adults, a slight decrease in the calculated MCHC value (in the range of 30 to 32 g/dL) is most likely not clinically significant; however, it should be interpreted with caution in correlation with other red cell parameters and the patient's clinical condition. Performed By: #### 7 600, 27497, 1758, [id number] #### [facility] [facility] [place] [address] Inverted Block Operator: Claudy Price MD MCV (RBC) [Entitic vol] 88.0 fL Normal 80.0-100.0 [facility] Comment on above: Performed By: #### 7 600, 52909, 1758, 23921 #### [facility] [place] [address] Inverted Block Operator: Claudy Price MD Platelet mean volume (Bld) [Entitic vol] 9.8 fL Normal 7.5-12.5 [facility] Comment on above: Performed By: #### 7 600, 76309, 1759, 54836 #### [facility] of [place] [address] Inverted Block Operator: Claudy Price MD Platelets (Bld) [#/Vol] 253 10*3/uL Normal 140-400 [facility] Comment on above: Performed By: #### 7 600, 46942, 175, 35940 #### [facility] of [address], [address] [place] [address] Inverted Block Operator: Claudy Price MD RBC (Bld) [#/Vol] 5.16 10*6/uL Normal 4.20-5.80 [facility] Comment on above: Performed By: #### 7 600, 48641, 175, 86040 #### [facility] of [place] [address] Inverted Block Operator: Claudy Price MD WBC (Bld) [#/Vol] 5.7 10*3/uL Normal 3.8-10.8 [facility] Comment on above: Performed By: #### 7 600, 24202, 175, 71809 #### [facility] of [address], [address] [place] [address] Inverted Block Operator: Claudy Price MD COMPREHENSIVE METABOLIC PANE L W/ANION GAPon 05-31-2025 Albumin [Mass/Vol] 4.9 g/dL Normal 3.6-5.1 [facility] Comment on above: Performed By: #### 7 600, 01425, 175, 45342 #### [facility] of [place] [address] Inverted Block Operator: Claudy Price MD ALP [Catalytic activity/Vol] 89 U/L Normal 36-130 [facility] Comment on above: Performed By: #### 7 600, 02218, 1759, 98456 #### [facility] of [place] [address] Inverted Block Operator: Claudy Price MD ALT [Catalytic activity/Vol] 20 U/L Normal 9-46 [facility] Comment on above: Performed By: #### 7 600, 74519, 1758, 27535 #### [facility] of [place] [address] Inverted Block Operator: Claudy Price MD AST [Catalytic activity/Vol] 25 U/L Normal 10-40 [facility] Comment on above: Performed By: #### 7 600, 73316, 1758, 76035 #### [facility] of [place] [address] Inverted Block Operator: Claudy Price MD Bilirubin [Mass/Vol] 1.3 mg/dL High 0.2-1.2 [facility] Comment on above: Performed By: #### 7 600, 75949, 1758, 96543 #### [facility] of [place] [address] Inverted Block Operator: Claudy Price MD Calcium [Mass/Vol] 9.1 mg/dL Normal 8.6-10.3 [facility] Comment on above: Performed By: #### 7 600, 18211, 1758, 94548 #### [facility] of [place] [address] Inverted Block Operator: Claudy Price MD Chloride [Moles/Vol] 104 mmol/L Normal 98-110 [facility] Comment on above: Performed By: #### 7 600, 31212, 1758, 36841 #### [facility] of [place] [address] Inverted Block Operator: Claudy Price MD CO2 [Moles/Vol] 28 mmol/L Normal 20-32 [facility] Comment on above: Performed By: #### 7 600, 79686, 175, 72683 #### [facility] of [place] [address] Inverted Block Operator: Claudy Price MD Creatinine [Mass/Vol] 0.73 mg/dL Normal 0.60-1.26 [facility] Comment on above: Performed By: #### 7 600, 89905, 175, 02144 #### [facility] [place] [address] Inverted Block Operator: Claudy Price MD ELECTROLYTE BALANCE 8 mmol/L (calc) Normal 7-17 [facility] Comment on above: Performed By: #### 7 600, 37113, 175, 96212 #### [facility] [address], [address] [place] [address] Inverted Block Operator: Claudy Price MD GFR/1.73 sq M.predicted among non-blacks MDRD (S/P/Bld) [Vol rate/Area] 119 mL/min/{1.73_m2} Normal > OR = 60 [facility] Comment on above: Performed By: #### 7 600, 33994, 1758, 55046 #### [facility] of [place] [address] Inverted Block Operator: Claudy Price MD Glucose [Mass/Vol] 69 mg/dL Normal 65-99 [facility] Comment on above: Result Comment: Fasting reference interval Performed By: #### 7 600, 26642, 175, 33237 #### [facility] [place] [address] Inverted Block Operator: Claudy Price MD Potassium [Moles/Vol] 4.0 mmol/L Normal 3.5-5.3 [facility] Comment on above: Performed By: #### 7 600, 72812, 175, 43746 #### [facility] of [place] [address] Inverted Block Operator: Claudy Price MD Protein [Mass/Vol] 7.5 g/dL Normal 6.1-8.1 [facility] Comment on above: Performed By: #### 7 600, 04035, 175, 96020 #### [facility] [place] [address] Inverted Block Operator: Claudy Price MD Sodium [Moles/Vol] 140 mmol/L Normal 135-146 [facility] Comment on above: Performed By: #### 7 600, 20707, 1759, 65751 #### [facility] [address], [address] [place] [address] Inverted Block Operator: Claudy Price MD Urea nitrogen [Mass/Vol] 11 mg/dL Normal 7-25 [facility] Comment on above: Performed By: #### 7 600, 55279, 175, 60981 #### [facility] [address], [address] [place] [address] Inverted Block Operator: Claudy Price MD HEMOGLOBIN A1c WITH eAGon eAG (mmol/L) 5.0 mmol/L Normal [facility] Comment on above: Performed By: #### 7 600, 00433, 175, 77901 #### [facility] [address], [address] [place] [address] Inverted Block Operator: Claudy Price MD HbA1c (Bld) [Mass fraction] 4.8 % Normal <5.7 [facility] Comment on above: Result Comment: For the purpose of screening for the presence of diabetes: <5.7% Consistent with the absence of diabetes 5.7-6.4% Consistent with increased risk for diabetes (prediabetes) > or =6.5% Consistent with diabetes This assay result is consistent with a decreased risk of diabetes. Currently, no consensus exists regarding use of hemoglobin A1c for diagnosis of diabetes in children. According to [place] Diabetes Association (ADA) guidelines, hemoglobin A1c <7.0% represents optimal control in non- diabetic patients. Different metrics may apply to specific patient populations. Standards of Medical Care in Diabetes(ADA). Performed By: #### 7 600, 40080, 1759, 49081 #### [facility] [address], [address] [place] [address] Inverted Block Operator: Claudy Price MD Magnesium [Mass/Vol] 91 mg/dL Normal [facility] Comment on above: Performed By: #### 7 600, 38685, 175, 56598 #### [facility] [address], [address] [place] [address] Inverted Block Operator: Claudy Price MD LIPID PANEL, [facility] 05-11 Cholesterol [Mass/Vol] 165 mg/dL Normal <200 [facility] Comment on above: Order Comment: FASTI NG:YES FASTING: YES Performed By: #### 7 600, 99668, 1759, 52209 #### [facility] [address], [address] [place] [address] Inverted Block Operator: Claudy Price MD Cholesterol in HDL [Mass/Vol] 40 mg/dL Normal > OR = 40 [facility] Comment on above: Order Comment: FASTI NG:YES FASTING: YES Performed By: #### 7 600, 44385, 1759, 11228 #### [facility] [address], [address] [place] [address] Inverted Block Operator: Claudy Price MD Cholesterol in LDL [Mass/Vol] 106 mg/dL High [facility] Comment on above: Order Comment: FASTI NG:YES FASTING: YES Result Comment: Refe rence range: <100 Desirable range <100 mg/dL for primary prevention; <70 mg/dL for patients with CHD or diabetic patients with > or = 2 CHD risk factors. LDL-C is now calculated using the Harlan-Mason calculation, which is a validated novel method providing better accuracy than the Friedewald equation in the estimation of LDL-C. Harlan SANON et al. SVETLANA. 2013;310(19): 2885-9938 (http://education.[employer]Bioparaiso/faq/KJC360) Performed By: #### 7 600, 10141, 1759, 46170 #### [facility] [address], [address] [place] [address] Inverted Block Operator: Claudy Price MD Cholesterol.total/C holesterol in HDL [Mass ratio] 4.1 {ratio} Normal <5.0 [facility] Comment on above: Order Comment: FASTI NG:YES FASTING: YES Performed By: #### 7 600, 65187, 1759, 99392 #### [facility] [place] [address] Inverted Block Operator: Claudy Price MD NON HDL CHOLESTEROL 125 mg/dL (calc) Normal <130 [facility] Comment on above: Order Comment: FASTI NG:YES FASTING: YES Result Comment: For patients with diabetes plus 1 major ASCVD risk factor, treating to a non-HDL-C goal of <100 mg/dL (LDL-C of <70 mg/dL) is considered a therapeutic option. Performed By: #### 7 600, 57397, 1759, 95726 #### [facility] [address], [address] [place] [address] Inverted Block Operator: Claudy Price MD Triglyceride [Mass/Vol] 99 mg/dL Normal <150 [facility] Comment on above: Order Comment: FASTI NG:YES FASTING: YES Performed By: #### 7 600, 06042, 1759, 77095 #### [facility] [address], [address] [place] [address] Inverted Block Operator: Claudy Price MD .Auto Diffon 09-03-2024 Basophil, Absolute 0.1 10 3/mcL Normal 0.0-0.2 [facility] Comment on above: Performed By: #### D LDL, FES, VIDH, 898842, 806341, 084609, FERR, CMP, TSHR, GFR, LIPID #### [address] [address] #### B12 #### [address] [address] Basophils/100 WBC (Bld) 0.8 % Normal 0.0-2.[address] [facility] Comment on above: Performed By: #### D LDL, FES, VIDH, 555428, 468189, 628080, FERR, CMP, TSHR, GFR, LIPID #### [address] [address] #### B12 #### [address] [address] Eosinophil, Absolute 0.9 10 3/mcL High 0.0-0.[address] [facility] Comment on above: Performed By: #### D LDL, FES, VIDH, 147445, 228751, 422498, FERR, CMP, TSHR, GFR, LIPID #### [address] [address] #### B12 #### [address] [address] Eosinophils/100 WBC (Bld) 9.3 % High 0.0-7.[address] [facility] Comment on above: Performed By: #### D LDL, FES, VIDH, 508351, 974715, 383163, FERR, CMP, TSHR, GFR, LIPID #### [place] [address] #### B12 #### [address] [address] Lymphocyte, Absolute 0.9 10 3/mcL Normal 0.9-4.[address] [facility] Comment on above: Performed By: #### D LDL, FES, VIDH, 018181, 819875, 972353, FERR, CMP, TSHR, GFR, LIPID #### [place] [address] #### B12 #### [address] [address] Lymphocytes/100 WBC (Bld) 9.5 % Low 20.0-40.[address] [facility] Comment on above: Performed By: #### D LDL, FES, VIDH, 748198, 784172, 011880, FERR, CMP, TSHR, GFR, LIPID #### [place] [address] #### B12 #### [address] [address] Monocyte, Absolute 0.8 10 3/mcL Normal 0.1-1.4 [facility] Comment on above: Performed By: #### D LDL, FES, VIDH, 807079, 187000, 012798, FERR, CMP, TSHR, GFR, LIPID #### [place] [address] #### B12 #### [address] [address] Monocytes/100 WBC (Bld) 8.8 % Normal 2.0-13.[address] [facility] Comment on above: Performed By: #### D LDL, FES, VIDH, 415258, 424644, 539110, FERR, CMP, TSHR, GFR, LIPID #### [address] [address] #### B12 #### [address] [address] Neutrophils/100 WBC (Bld) 71.6 % Normal 50.0-75.[address] [facility] Comment on above: Performed By: #### D LDL, FES, VIDH, 209266, 844289, 080052, FERR, CMP, TSHR, GFR, LIPID #### [address] [address] #### B12 #### [address] [address] .GFRon 09-03-2024 GFR 76 ml/min/1.73sqm Normal [facility] Comment on above: Result Comment: GFR Population mean for , Non- Americans Ages 20-29 = 116 mL/min/1.73 sq.m. Ages 30-39 = 107 mL/min/1.73 sq.m. Ages 40-49 = 99 mL/min/1.73 sq.m. Ages 50-59 = 93 mL/min/1.73 sq.m. Ages 60-69 = 85 mL/min/1.73 sq.m. Ages 70+ = 75 mL/min/1.73 sq.m. Chronic Kidney Disease: Less than 60 mL/min/1.73 square meters End Stage Renal Disease: Less than 15 mL/min/1.73 square meters Performed By: #### D LDL, FES, VIDH, 673371, 810602, 980659, FERR, CMP, TSHR, GFR, LIPID #### [address] [address] #### B12 #### [address] [address] GFR Non- 63 ml/min/1.73sqm Normal [facility] Comment on above: Result Comment: GFR Population mean for , Non- Americans Ages 20-29 = 116 mL/min/1.73 sq.m. Ages 30-39 = 107 mL/min/1.73 sq.m. Ages 40-49 = 99 mL/min/1.73 sq.m. Ages 50-59 = 93 mL/min/1.73 sq.m. Ages 60-69 = 85 mL/min/1.73 sq.m. Ages 70+ = 75 mL/min/1.73 sq.m. Chronic Kidney Disease: Less than 60 mL/min/1.73 square meters End Stage Renal Disease: Less than 15 mL/min/1.73 square meters Performed By: #### D LDL, FES, VIDH, 817173, 240827, 770130, FERR, CMP, TSHR, GFR, LIPID #### [place] [address] #### B12 #### [place] [address] .MDWon 09-03-2024 Monocyte Distribution Width 23.73 High 0.00-20.[address] [facility] Comment on above: Result Comment: For adults in ED, MDW>20.0 may be associated with a higher risk of sepsis during the first 12hrs of hospital admission Performed By: #### D LDL, FES, VIDH, 628993, 639877, 735212, FERR, CMP, TSHR, GFR, LIPID #### [place] [address] #### B12 #### [place] [address] .NEUABSon 09-03-2024 Neutrophil, Absolute 6.5 10 3/mcL Normal 2.3-8.[address] [facility] Comment on above: Performed By: #### D LDL, FES, VIDH, 994119, 232529, 633262, FERR, CMP, TSHR, GFR, LIPID #### [place] [address] #### B12 #### [address] [address] [facility] BUN/Creatinine Ratio 9 ratio Normal 7-[address] [facility] Comment on above: Performed By: #### D LDL, FES, VIDH, 094888, 427476, 671336, FERR, CMP, TSHR, GFR, LIPID #### [address] [address] #### B12 #### [address] [address] Calcium [Mass/Vol] 8.5 mg/dL Normal 8.4-10.2 [facility] Comment on above: Performed By: #### D LDL, FES, VIDH, 074572, 668467, 539805, FERR, CMP, TSHR, GFR, LIPID #### [address] [address] #### B12 #### [address] [address] Chloride [Moles/Vol] 101 mmol/L Normal 98-[address] [facility] Comment on above: Performed By: #### D LDL, FES, VIDH, 787179, 454860, 323950, FERR, CMP, TSHR, GFR, LIPID #### [address] [address] #### B12 #### [address] [address] CO2 [Moles/Vol] 28 mmol/L Normal 22-[address] [facility] Comment on above: Performed By: #### D LDL, FES, VIDH, 115388, 888956, 404169, FERR, CMP, TSHR, GFR, LIPID #### [address] [address] #### B12 #### [address] [address] Creatinine [Mass/Vol] 1.29 mg/dL Normal 0.70-1.[address] [facility] Comment on above: Result Comment: Test ing performed on Siemens Dimension EXL analyzer using a modified kinetic Rashmi technique. Performed By: #### D LDL, FES, VIDH, 514145, 316473, 620268, FERR, CMP, TSHR, GFR, LIPID #### [address] [address] #### B12 #### [address] [address] Electrolyte Balance 11.0 mEq/L Normal 4.0-15.0 [facility] Comment on above: Performed By: #### D LDL, FES, VIDH, 500406, 618898, 850635, FERR, CMP, TSHR, GFR, LIPID #### [place] [address] #### B12 #### [address] [address] Glucose [Mass/Vol] 119 mg/dL High 70-105 [facility] Comment on above: Performed By: #### D LDL, FES, VIDH, 038001, 038643, 686733, FERR, CMP, TSHR, GFR, LIPID #### [place] [address] #### B12 #### [address] [address] Potassium [Moles/Vol] 4.2 mmol/L Normal 3.5-5.[address] [facility] Comment on above: Performed By: #### D LDL, FES, VIDH, 305514, 839918, 889296, FERR, CMP, TSHR, GFR, LIPID #### [place] [address] #### B12 #### [address] [address] Sodium [Moles/Vol] 140 mmol/L Normal 136-145 [facility] Comment on above: Performed By: #### D LDL, FES, VIDH, 420392, 214312, 324611, FERR, CMP, TSHR, GFR, LIPID #### [place] [address] #### B12 #### [address] [address] Urea nitrogen [Mass/Vol] 11 mg/dL Normal 7-[address] [facility] Comment on above: Performed By: #### D LDL, FES, VIDH, 483768, 576708, 149274, FERR, CMP, TSHR, GFR, LIPID #### [address] [address] #### B12 #### [address] [address] CBCon 09-03-2024 Erythrocyte distribution width (RBC) [Ratio] 13.9 % Normal 11.5-15.[address] [facility] Comment on above: Performed By: #### D LDL, FES, VIDH, 278628, 149163, 160931, FERR, CMP, TSHR, GFR, LIPID #### [address] [address] #### B12 #### [address] [address] Hematocrit (Bld) [Volume fraction] 43.4 % Normal 40.0-52.[address] [facility] Comment on above: Performed By: #### D LDL, FES, VIDH, 194388, 595887, 290903, FERR, CMP, TSHR, GFR, LIPID #### [address] [address] #### B12 #### [address] [address] Hgb 14.8 G/dL Normal 13.0-17.[address] [facility] Comment on above: Performed By: #### D LDL, FES, VIDH, 400771, 928445, 522756, FERR, CMP, TSHR, GFR, LIPID #### [address] [address] #### B12 #### [address] [address] MCH (RBC) [Entitic mass] 29.2 pg Normal 27.0-33.[address] [facility] Comment on above: Performed By: #### D LDL, FES, VIDH, 063045, 968111, 453777, FERR, CMP, TSHR, GFR, LIPID #### [place] [address] #### B12 #### [place] [address] MCHC 34.1 G/dL Normal 32.0-36.[address] [facility] Comment on above: Performed By: #### D LDL, FES, VIDH, 601580, 169712, 616908, FERR, CMP, TSHR, GFR, LIPID #### [place] [address] #### B12 #### [place] [address] MCV (RBC) [Entitic vol] 85.6 fL Normal 81.0-100.[address] [facility] Comment on above: Performed By: #### D LDL, FES, VIDH, 653140, 115347, 912052, FERR, CMP, TSHR, GFR, LIPID #### [place] [address] #### B12 #### [place] [address] Platelet 227 10 3/mcL Normal 150-[address] [facility] Comment on above: Performed By: #### D LDL, FES, VIDH, 822526, 539761, 115969, FERR, CMP, TSHR, GFR, LIPID #### [place] [address] #### B12 #### [place] [address] Platelet mean volume (Bld) [Entitic vol] 9.1 fL Normal 6.4-10.[address] [facility] Comment on above: Performed By: #### D LDL, FES, VIDH, 643493, 654701, 538945, FERR, CMP, TSHR, GFR, LIPID #### [place] [address] #### B12 #### [place] [address] RBC 5.06 10 6/mcL Normal 4.50-6.[address] [facility] Comment on above: Performed By: #### D LDL, FES, VIDH, 417597, 830814, 457830, FERR, CMP, TSHR, GFR, LIPID #### [place] [address] #### B12 #### [place] [address] WBC 9.1 10 3/mcL Normal 4.5-10.[address] [facility] Comment on above: Performed By: #### D LDL, FES, VIDH, 327708, 478025, 339885, FERR, CMP, TSHR, GFR, LIPID #### [place] [address] #### B12 #### [place] [address] CVFLURVon 09-03-2024 FLU A PCR Negative Normal Negative [facility] Comment on above: Performed By: #### D LDL, FES, VIDH, 345361, 412825, 570749, FERR, CMP, TSHR, GFR, LIPID #### [place] [address] #### B12 #### [place] [address] FLU B PCR Negative Normal Negative [facility] Comment on above: Performed By: #### D LDL, FES, VIDH, 046802, 506947, 823502, FERR, CMP, TSHR, GFR, LIPID #### [place] [address] #### B12 #### [place] [address] RSV PCR Negative Normal Negative [facility] Comment on above: Performed By: #### D LDL, FES, VIDH, 355063, 388545, 951470, FERR, CMP, TSHR, GFR, LIPID #### [place] [address] #### B12 #### [place] [address] SARS-CoV-2 (COVID-19) RNA PENELOPE+probe Ql (Unsp spec) Negative Normal Negative [facility] Comment on above: Result Comment: Resu lts from the Xpert Xpress CoV-2/Flu/RSV plus test should be correlated with the clinical history, epidemiological data, and other data available to the clinical evaluating the patient. Performance of the Xpert Xpress CoV-2/Flu/RSV plus test has only been established in nasopharyngeal swab specimen. Erroneous test results might occur from improper specimen collection, failure to follow the recommended sample collection, handling and storage procedures, technical error, or sample mix-up. False negative results may occur if a virus is present at a level below the analytical limit of detection. Viral nucleic acid may persist in vivo, independent of virus viability. Detection of analyte target(s) does not imply that the corresponding virus(es) are infectious or are the causative agents for clinical symptoms. Recent patient exposure to FluMist or other live attenuated influenza vaccines may cause inaccurate positive results. Performed By: #### D LDL, FES, VIDH, 201253, 819610, 461528, FERR, CMP, TSHR, GFR, LIPID #### [address] [address] #### B12 #### [facility] [address] [place] [address] LABORATORYOrdered By: SYSTEM SYSTEM on 09-03-2024 Troponin I.cardiac DL <= 0.01 ng/mL [Mass/Vol] 197 ng/L High 0 - 76 ng/L AO ADM SS Comment on above: Interpretive Data: H igh Sensitive Troponin I Reference Ranges: Female: 0-51 ng/L Male: 0-76 ng/L Testing performed on [employer] using a homogeneous sandwich chemiluminescent immunoassay based on [employer] technology. Basophils (Bld) [#/Vol] 0.1 103/mcL Normal 0.0 - 0.2 10^3/mcL AO Workflow SS Basophils/100 WBC (Bld) 0.8 % Normal 0.0 - 2.5 % AO Workflow SS Calcium [Mass/Vol] 8.5 mg/dL Normal 8.4 - 10. 2 mg/dL AO ADM SS Chloride [Moles/Vol] 101 mmol/L Normal 98 - 107 mmol/L AO ADM SS CO2 [Moles/Vol] 28 mmol/L Normal 22 - 29 mmol/L AO ADM SS Creatinine [Mass/Vol] 1.29 mg/dL Normal 0.70 - 1.30 mg/dL AO ADM SS Comment on above: Interpretive Data: T esting performed on Siemens Dimension EXL analyzer using a modified kinetic Rashmi technique. Electrolyte Balance 11.0 mEq/L Normal 4.0 - 15 .0 mEq/L AO ADM SS Eosinophil, Absolute 0.9 103/mcL High 0.0 - 0.7 10^3/mcL AO Workflow SS Eosinophils/100 WBC (Bld) 9.3 % High 0.0 - 7.0 % AO Workflow SS Erythrocyte distribution width (RBC) [Ratio] 13.9 % Normal 11.5 - 15.5 % AO Workflow SS GFR/1.73 sq M.predicted among blacks MDRD (S/P/Bld) [Vol rate/Area] 76 ml/min/1.73sqm Invalid Interpretation Code AO Chemistry S Comment on above: Interpretive Data: GFR Population mean for , Non- Americans Ages 20-29 = 116 mL/min/1.73 sq.m. Ages 30-39 = 107 mL/min/1.73 sq.m. Ages 40-49 = 99 mL/min/1.73 sq.m. Ages 50-59 = 93 mL/min/1.73 sq.m. Ages 60-69 = 85 mL/min/1.73 sq.m. Ages 70+ = 75 mL/min/1.73 sq.m. Chronic Kidney Disease: Less than 60 mL/min/1.73 square meters End Stage Renal Disease: Less than 15 mL/min/1.73 square meters GFR/1.73 sq M.predicted among non-blacks MDRD (S/P/Bld) [Vol rate/Area] 63 ml/min/1.73sqm Invalid Interpretation Code AO Chemistry S Comment on above: Interpretive Data: GFR Population mean for , Non- Americans Ages 20-29 = 116 mL/min/1.73 sq.m. Ages 30-39 = 107 mL/min/1.73 sq.m. Ages 40-49 = 99 mL/min/1.73 sq.m. Ages 50-59 = 93 mL/min/1.73 sq.m. Ages 60-69 = 85 mL/min/1.73 sq.m. Ages 70+ = 75 mL/min/1.73 sq.m. Chronic Kidney Disease: Less than 60 mL/min/1.73 square meters End Stage Renal Disease: Less than 15 mL/min/1.73 square meters Glucose [Mass/Vol] 119 mg/dL High 70 - 105 mg/dL AO ADM SS Hematocrit (Bld) [Volume fraction] 43.4 % Normal 40.0 - 52.0 % AO Workflow SS Hemoglobin (Bld) [Mass/Vol] 14.8 G/dL Normal 13.0 - 17.5 G/dL AO Workflow SS Lymphocytes (Bld) [#/Vol] 0.9 103/mcL Normal 0.9 - 4.3 10^3/mcL AO Workflow SS Lymphocytes/100 WBC (Bld) 9.5 % Low 20.0 - 40.0 % AO Workflow SS MCH (RBC) [Entitic mass] 29.2 pg Normal 27.0 - 33.0 pg AO Workflow SS MCHC 34.1 G/dL Normal 32.0 - 36.0 G/dL AO Workflow SS MCV (RBC) [Entitic vol] 85.6 fL Normal 81.0 - 100.0 fL AO Workflow SS Monocyte distribution width Auto (Bld) [Entitic vol] 23.73 1 High 0.00 - 20.00 AO Workflow SS Comment on above: Result Comment: For adults in ED, MDW>20.0 may be associated with a higher risk of sepsis during the first 12hrs of hospital admission Monocytes (Bld) [#/Vol] 0.8 103/mcL Normal 0.1 - 1.4 10^3/mcL AO Workflow SS Monocytes/100 WBC (Bld) 8.8 % Normal 2.0 - 13.0 % AO Workflow SS Natriuretic peptide.B prohormone N-Terminal [Mass/Vol] 2126 pg/mL High 0 - 125 pg/mL AO ADM SS Comment on above: Interpretive Data: N T-proBNP results of less than 300 pg/mL effectively rules out acute congestive heart failure with 99% negative predictive value. Neutrophils (Bld) [#/Vol] 6.5 103/mcL Normal 2.3 - 8.1 10^3/mcL AO Workflow SS Neutrophils/100 WBC (Bld) 71.6 % Normal 50.0 - 75.0 % AO Workflow SS Platelet mean volume (Bld) [Entitic vol] 9.1 fL Normal 6.4 - 10.5 fL AO Workflow SS Platelets (Bld) [#/Vol] 227 103/mcL Normal 150 - 450 10^3/mcL AO Workflow SS Potassium [Moles/Vol] 4.2 mmol/L Normal 3.5 - 5.1 mmol/L AO ADM SS RBC (Bld) [#/Vol] 5.06 106/mcL Normal 4.50 - 6.0 0 10^6/mcL AO Workflow SS Sodium [Moles/Vol] 140 mmol/L Normal 136 - 145 mmol/L AO ADM SS Troponin I.cardiac DL <= 0.01 ng/mL [Mass/Vol] 198 ng/L High 0 - 76 ng/L AO ADM SS Comment on above: Interpretive Data: H igh Sensitive Troponin I Reference Ranges: Female: 0-51 ng/L Male: 0-76 ng/L Testing performed on [employer] using a homogeneous sandwich chemiluminescent immunoassay based on [employer] technology. Urea nitrogen [Mass/Vol] 11 mg/dL Normal 7 - 18 mg/dL AO ADM SS Urea nitrogen/Creatinine [Mass ratio] 9 ratio Normal 7 - 27 ratio AO ADM SS WBC (Bld) [#/Vol] 9.1 103/mcL Normal 4.5 - 10.8 10^3/mcL AO Workflow SS LABORATORYOrdered By: Lakhwinder De La Garza on 09-03-2024 FLUAV RNA PENELOPE+probe Ql (Resp) Negative (09/03/24 9:42 AM) Normal Negative AO Auto Urine SS FLUBV RNA PENELOPE+probe Ql (Resp) Negative (09/03/24 9:42 AM) Normal Negative AO Auto Urine SS RSV RNA PENELOPE+probe Ql (Resp) Negative (09/03/24 9:42 AM) Normal Negative AO Auto Urine SS SARS-CoV-2 (COVID-19) RNA PENELOPE+probe Ql (Resp) Negative 6 (09/03/24 9:42 AM) Normal Negative AO Auto Urine SS Comment on above: Interpretive Data: R esults from the Xpert Xpress CoV-2/Flu/RSV plus test should be correlated with the clinical history, epidemiological data, and other data available to the clinical evaluating the patient. Performance of the Xpert Xpress CoV-2/Flu/RSV plus test has only been established in nasopharyngeal swab specimen. Erroneous test results might occur from improper specimen collection, failure to follow the recommended sample collection, handling and storage procedures, technical error, or sample mix-up. False negative results may occur if a virus is present at a level below the analytical limit of detection. Viral nucleic acid may persist in vivo, independent of virus viability. Detection of analyte target(s) does not imply that the corresponding virus(es) are infectious or are the causative agents for clinical symptoms. Recent patient exposure to FluMist or other live attenuated influenza vaccines may cause inaccurate positive results. PBNPon 09-03-2024 Natriuretic peptide B (Bld) [Mass/Vol] 2126 pg/mL High 0-[address] [facility] Comment on above: Result Comment: NT-p roBNP results of less than 300 pg/mL effectively rules out acute congestive heart failure with 99% negative predictive value. Performed By: #### D LDL, FES, VIDH, 711454, [id number], [id number], FERR, CMP, TSHR, GFR, LIPID #### [place] [address] #### B12 #### [address] 09-03-2024 High Sensitivity Troponin I 197 ng/L High 0-[address] [facility] Comment on above: Result Comment: High Sensitive Troponin I Reference Ranges: Female: 0-51 ng/L Male: 0-76 ng/L Testing performed on [employer] using a homogeneous sandwich chemiluminescent immunoassay based on [employer] technology. Performed By: #### D LDL, FES, VIDH, 193923, 034721, 818651, FERR, CMP, TSHR, GFR, LIPID #### [address] [address] #### B12 #### [place] [address] High Sensitivity Troponin I 198 ng/L High [address] [facility] Comment on above: Result Comment: High Sensitive Troponin I Reference Ranges: Female: 0-51 ng/L Male: 0-76 ng/L Testing performed on [employer] using a homogeneous sandwich chemiluminescent immunoassay based on [employer] technology. Performed By: #### D LDL, FES, VIDH, 806029, 806457, 271207, FERR, CMP, TSHR, GFR, LIPID #### [place] [id number] [place], [place] [address] #### B12 #### [address] [address] XR CHEST 1 VIEWon 09-03-2024 XR CHEST 1 VIEW ORIGINAL EXAMINATION: ONE XRAY VIEW OF THE CHEST 09/03/2024 10:25 am COMPARISON: 07/25/2024 HISTORY: ORDERING SYSTEM PROVIDED HISTORY: Reason for Exam: SOB/cough/fever FINDINGS: Lordotic image shows top-normal cardiac size with a left ventricular configuration. There is no acute alveolar, interstitial or pleural process. IMPRESSION: 1. No acute chest process. 2. Borderline cardiomegaly. Interpreted by: Ayush Fam DO Preliminary Report By: Ayush Fam DO Electronically signed By Ayush Fam DO Dictated Date: 09/03/2024 10:53:15 AM Prelim Date: 09/03/2024 11:11:10 AM Sign Date: 09/03/2024 11:11:10 AM Ordering Provider: VÍCTOR Marquez [facility] .Auto Diffon 07-27-2024 Basophil, Absolute 0.1 10 3/mcL Normal 0.0-0.3 [facility] Comment on above: Performed By: #### L IPID, DLDL, A1C #### [address] [address] Basophils/100 WBC (Bld) 0.9 % Normal 0.0-2.5 [facility] Comment on above: Performed By: #### L IPID, DLDL, A1C #### [address] [address] Eosinophil, Absolute 1.1 10 3/mcL High 0.0-0.7 [facility] Comment on above: Performed By: #### L IPID, DLDL, A1C #### [address] [address] Eosinophils/100 WBC (Bld) 11.4 % High 0.0-6.0 [facility] Comment on above: Performed By: #### L IPID, DLDL, A1C #### [address] [place], [place] [address] Lymphocyte, Absolute 2.3 10 3/mcL Normal 0.9-4.3 [facility] Comment on above: Performed By: #### L IPIDNIKHILL, A1C #### [facility] [address] [place] [address] Lymphocytes/100 WBC (Bld) 24.0 % Normal 20.0-40.0 [facility] Comment on above: Performed By: #### L IPID DLDL, A1C #### [facility] [address] [place] [address] Monocyte, Absolute 0.7 10 3/mcL Normal 0.1-1.4 [facility] Comment on above: Performed By: #### L ZEEIDNIKHILL, A1C #### [address] [address] Monocytes/100 WBC (Bld) 7.7 % Normal 2.0-13.0 [facility] Comment on above: Performed By: #### L IPIDNIKHILL, A1C #### [address] [address] Neutrophils/100 WBC (Bld) 56.0 % Normal 50.0-75.0 [facility] Comment on above: Performed By: #### L NIKHIL YOUNGL, A1C #### [address] [address] .GFRon 07-27-2024 GFR Non- >60 Normal [facility] Comment on above: Result Comment: GFR Population mean for , Non- Americans Ages 20-29 = 116 mL/min/1.73 sq.m. Ages 30-39 = 107 mL/min/1.73 sq.m. Ages 40-49 = 99 mL/min/1.73 sq.m. Ages 50-59 = 93 mL/min/1.73 sq.m. Ages 60-69 = 85 mL/min/1.73 sq.m. Ages 70+ = 75 mL/min/1.73 sq.m. Chronic Kidney Disease: Less than 60 mL/min/1.73 square meters End Stage Renal Disease: Less than 15 mL/min/1.73 square meters Performed By: #### L IPID, DLDL, A1C #### [address] [address] GFR >60 Normal [facility] Comment on above: Result Comment: GFR Population mean for , Non- Americans Ages 20-29 = 116 mL/min/1.73 sq.m. Ages 30-39 = 107 mL/min/1.73 sq.m. Ages 40-49 = 99 mL/min/1.73 sq.m. Ages 50-59 = 93 mL/min/1.73 sq.m. Ages 60-69 = 85 mL/min/1.73 sq.m. Ages 70+ = 75 mL/min/1.73 sq.m. Chronic Kidney Disease: Less than 60 mL/min/1.73 square meters End Stage Renal Disease: Less than 15 mL/min/1.73 square meters Performed By: #### L IPID, DLDL, A1C #### [address] [address] .NEUABSon 07-27-2024 Neutrophil, Absolute 5.3 10 3/mcL Normal 2.3-8.1 [facility] Comment on above: Performed By: #### L IPID, DLDL, A1C #### [address] [address] BMPon 07-27-2024 BUN/Creatinine Ratio 14.9 ratio Normal 10.0-22.0 [facility] Comment on above: Performed By: #### L IPID, DLDL, A1C #### [address] [address] Calcium [Mass/Vol] 9.6 mg/dL Normal 8.7-10.4 [facility] Comment on above: Performed By: #### L IPID, DLDL, A1C #### [address] [address] Chloride [Moles/Vol] 109 mmol/L Normal 98-110 [facility] Comment on above: Performed By: #### L IPID, DLDL, A1C #### [address] [address] CO2 [Moles/Vol] 25 mmol/L Normal 22-32 [facility] Comment on above: Performed By: #### L IPIDNIKHILL, A1C #### [address] [address] Creatinine [Mass/Vol] 1.14 mg/dL Normal 0.60-1.40 [facility] Comment on above: Result Comment: Test ing performed on ciValue analyzer using enzymatic creatinine methodology. Performed By: #### L IPID DLDL, A1C #### [place] [id number] Electrolyte Balance 5.0 mEq/L Normal 4.0-15.0 [facility] Comment on above: Performed By: #### L NIKHIL YOUNGL, A1C #### [place] [address] Glucose [Mass/Vol] 128 mg/dL High 70-110 [facility] Comment on above: Performed By: #### L NIKHIL YOUNGL, A1C #### [place] [id number] Potassium [Moles/Vol] 3.9 mmol/L Normal 3.5-5.0 [facility] Comment on above: Performed By: #### L MAREK YOUNG, A1C #### [place] [address] Sodium [Moles/Vol] 139 mmol/L Normal 136-145 [facility] Comment on above: Performed By: #### L NIKHIL YOUNGL, A1C #### [place] [id number] Urea nitrogen [Mass/Vol] 17.0 mg/dL Normal 8.0-22.0 [facility] Comment on above: Performed By: #### L IPNIKHIL FORBESL, A1C #### [address] [address] CBCon 07-27-2024 Erythrocyte distribution width (RBC) [Ratio] 13.8 % Normal 11.5-15.5 [facility] Comment on above: Performed By: #### L IPID DLDL, A1C #### [address] [address] Hematocrit (Bld) [Volume fraction] 47.7 % Normal 40.0-52.0 [facility] Comment on above: Performed By: #### L IPNIKHIL FORBESL, A1C #### [place] [address] Hgb 16.1 G/dL Normal 13.0-17.5 [facility] Comment on above: Performed By: #### L IPID DLDL, A1C #### [place] [address] MCH (RBC) [Entitic mass] 29.0 pg Normal 27.0-33.0 [facility] Comment on above: Performed By: #### L NIKHIL YOUNGL, A1C #### [place] [address] MCHC 33.7 G/dL Normal 32.0-36.0 [facility] Comment on above: Performed By: #### L IPIDNIKHILL, A1C #### [place] [address] MCV (RBC) [Entitic vol] 86.2 fL Normal 81.0-100.0 [facility] Comment on above: Performed By: #### L IPNIKHIL FORBESL, A1C #### [place] [address] Platelet 271 10 3/mcL Normal 150-450 [facility] Comment on above: Performed By: #### L IPIDNIKHILL, A1C #### [place] [address] Platelet mean volume (Bld) [Entitic vol] 9.3 fL Normal 6.4-10.5 [facility] Comment on above: Performed By: #### L IPID DLDL, A1C #### [place] [address] RBC 5.54 10 6/mcL Normal 4.50-6.00 [facility] Comment on above: Performed By: #### L IPID, DLDL, A1C #### [place] [address] WBC 9.4 10 3/mcL Normal 4.5-10.8 [facility] Comment on above: Performed By: #### L IPID, DLDL, A1C #### [place] [id number] [place] [address] LABORATORYOrdered By: SYSTEM SYSTEM on 07-27-2024 Basophils (Bld) [#/Vol] 0.1 103/mcL Normal 0.0 - 0.3 10^3/mcL AH Workflow SS Basophils/100 WBC (Bld) 0.9 % Normal 0.0 - 2.5 % AH Workflow SS Calcium [Mass/Vol] 9.6 mg/dL Normal 8.7 - 10. 4 mg/dL ADM SS Chloride [Moles/Vol] 109 mmol/L Normal 98 - 110 mEq/L ADM SS CO2 [Moles/Vol] 25 mmol/L Normal 22 - 32 mEq/L AH ADM SS Creatinine [Mass/Vol] 1.14 mg/dL Normal 0.60 - 1.40 mg/dL AH ADM SS Comment on above: Interpretive Data: T esting performed on ciValue analyzer using enzymatic creatinine methodology. Electrolyte Balance 5.0 mEq/L Normal 4.0 - 15 .0 mEq/L ADM SS Eosinophils (Bld) [#/Vol] 1.1 103/mcL High 0.0 - 0.7 10^3/mcL AH Workflow SS Eosinophils/100 WBC (Bld) 11.4 % High 0.0 - 6.0 % AH Workflow SS Erythrocyte distribution width (RBC) [Ratio] 13.8 % Normal 11.5 - 15.5 % AH Workflow SS GFR/1.73 sq M.predicted among blacks MDRD (S/P/Bld) [Vol rate/Area] ml/min/1.73sqm Invalid Interpretation Code AH ADM SS Comment on above: Interpretive Data: GFR Population mean for , Non- Americans Ages 20-29 = 116 mL/min/1.73 sq.m. Ages 30-39 = 107 mL/min/1.73 sq.m. Ages 40-49 = 99 mL/min/1.73 sq.m. Ages 50-59 = 93 mL/min/1.73 sq.m. Ages 60-69 = 85 mL/min/1.73 sq.m. Ages 70+ = 75 mL/min/1.73 sq.m. Chronic Kidney Disease: Less than 60 mL/min/1.73 square meters End Stage Renal Disease: Less than 15 mL/min/1.73 square meters GFR/1.73 sq M.predicted among non-blacks MDRD (S/P/Bld) [Vol rate/Area] ml/min/1.73sqm Invalid Interpretation Code AH ADM SS Comment on above: Interpretive Data: GFR Population mean for , Non- Americans Ages 20-29 = 116 mL/min/1.73 sq.m. Ages 30-39 = 107 mL/min/1.73 sq.m. Ages 40-49 = 99 mL/min/1.73 sq.m. Ages 50-59 = 93 mL/min/1.73 sq.m. Ages 60-69 = 85 mL/min/1.73 sq.m. Ages 70+ = 75 mL/min/1.73 sq.m. Chronic Kidney Disease: Less than 60 mL/min/1.73 square meters End Stage Renal Disease: Less than 15 mL/min/1.73 square meters Glucose [Mass/Vol] 128 mg/dL High 70 - 110 mg/dL ADM SS Hematocrit (Bld) [Volume fraction] 47.7 % Normal 40.0 - 52.0 % AH Workflow SS Hemoglobin (Bld) [Mass/Vol] 16.1 G/dL Normal 13.0 - 17.5 G/dL AH Workflow SS Lymphocytes (Bld) [#/Vol] 2.3 103/mcL Normal 0.9 - 4.3 10^3/mcL AH Workflow SS Lymphocytes/100 WBC (Bld) 24.0 % Normal 20.0 - 40.0 % AH Workflow SS Magnesium [Mass/Vol] 2.4 mg/dL Normal 1.6 - 2.4 mg/dL ADM SS MCH (RBC) [Entitic mass] 29.0 pg Normal 27.0 - 33.0 pg AH Workflow SS MCHC 33.7 G/dL Normal 32.0 - 36.0 G/dL AH Workflow SS MCV (RBC) [Entitic vol] 86.2 fL Normal 81.0 - 100.0 fL AH Workflow SS Monocytes (Bld) [#/Vol] 0.7 103/mcL Normal 0.1 - 1.4 10^3/mcL AH Workflow SS Monocytes/100 WBC (Bld) 7.7 % Normal 2.0 - 13.0 % Workflow SS Neutrophils (Bld) [#/Vol] 5.3 103/mcL Normal 2.3 - 8.1 10^3/mcL Workflow SS Neutrophils/100 WBC (Bld) 56.0 % Normal 50.0 - 75.0 % Workflow SS Platelet mean volume (Bld) [Entitic vol] 9.3 fL Normal 6.4 - 10.5 fL Workflow SS Platelets (Bld) [#/Vol] 271 103/mcL Normal 150 - 450 10^3/mcL Workflow SS Potassium [Moles/Vol] 3.9 mmol/L Normal 3.5 - 5.0 mEq/L ADM SS RBC (Bld) [#/Vol] 5.54 106/mcL Normal 4.50 - 6.0 0 10^6/mcL Workflow SS Sodium [Moles/Vol] 139 mmol/L Normal 136 - 145 mEq/L ADM SS Urea nitrogen [Mass/Vol] 17.0 mg/dL Normal 8.0 - 22.0 mg/dL ADM SS Urea nitrogen/Creatinine [Mass ratio] 14.9 ratio Normal 10.0 - 22.0 ratio ADM SS WBC (Bld) [#/Vol] 9.4 103/mcL Normal 4.5 - 10.8 10^3/mcL Workflow SS MGon 07-27-2024 Magnesium [Mass/Vol] 2.4 mg/dL Normal 1.6-2.4 [facility] Comment on above: Performed By: #### L IPID, DLDL, A1C #### [address] [address] .Auto Diffon 07-26-2024 Basophil, Absolute 0.1 10 3/mcL Normal 0.0-0.3 [facility] Comment on above: Performed By: #### A MARIJA, PRO, CBC, ADIFF, APTT #### [address] [address] Basophils/100 WBC (Bld) 1.0 % Normal 0.0-2.5 [facility] Comment on above: Performed By: #### A MARIJA, PRO, CBC, ADIFF, APTT #### [address] [address] Eosinophil, Absolute 0.9 10 3/mcL High 0.0-0.7 [facility] Comment on above: Performed By: #### A MARIJA, PRO, CBC, ADIFF, APTT #### [address] [address] Eosinophils/100 WBC (Bld) 11.7 % High 0.0-6.0 [facility] Comment on above: Performed By: #### A MARIJA, PRO, CBC, ADIFF, APTT #### [address] [address] Lymphocyte, Absolute 2.0 10 3/mcL Normal 0.9-4.3 [facility] Comment on above: Performed By: #### A MARIJA, PRO, CBC, ADIFF, APTT #### [address] [address] Lymphocytes/100 WBC (Bld) 24.4 % Normal 20.0-40.0 [facility] Comment on above: Performed By: #### A MARIJA, PRO, CBC, ADIFF, APTT #### [address] [address] Monocyte, Absolute 0.7 10 3/mcL Normal 0.1-1.4 [facility] Comment on above: Performed By: #### A MARIJA, PRO, CBC, ADIFF, APTT #### [address] [address] Monocytes/100 WBC (Bld) 8.5 % Normal 2.0-13.0 [facility] Comment on above: Performed By: #### A MARIJA, PRO, CBC, ADIFF, APTT #### [address] [address] Neutrophils/100 WBC (Bld) 54.4 % Normal 50.0-75.0 [facility] Comment on above: Performed By: #### A MARIJA, PRO, CBC, ADIFF, APTT #### [address] [address] .GFRon 07-26-2024 GFR >60 Normal [facility] Comment on above: Result Comment: GFR Population mean for , Non- Americans Ages 20-29 = 116 mL/min/1.73 sq.m. Ages 30-39 = 107 mL/min/1.73 sq.m. Ages 40-49 = 99 mL/min/1.73 sq.m. Ages 50-59 = 93 mL/min/1.73 sq.m. Ages 60-69 = 85 mL/min/1.73 sq.m. Ages 70+ = 75 mL/min/1.73 sq.m. Chronic Kidney Disease: Less than 60 mL/min/1.73 square meters End Stage Renal Disease: Less than 15 mL/min/1.73 square meters Performed By: #### Kitty Howard BMP, GFR #### [address] [address] GFR Non- >60 Normal [facility] Comment on above: Result Comment: GFR Population mean for , Non- Americans Ages 20-29 = 116 mL/min/1.73 sq.m. Ages 30-39 = 107 mL/min/1.73 sq.m. Ages 40-49 = 99 mL/min/1.73 sq.m. Ages 50-59 = 93 mL/min/1.73 sq.m. Ages 60-69 = 85 mL/min/1.73 sq.m. Ages 70+ = 75 mL/min/1.73 sq.m. Chronic Kidney Disease: Less than 60 mL/min/1.73 square meters End Stage Renal Disease: Less than 15 mL/min/1.73 square meters Performed By: #### Kitty Howard BMP, GFR #### [address] [address] .NEUABSon 07-26-2024 Neutrophil, Absolute 4.4 10 3/mcL Normal 2.3-8.1 [facility] Comment on above: Performed By: #### A MARIJA, PRO, CBC, ADIFF, APTT #### [address] [address] APTTon 07-26-2024 aPTT Coag (Bld) [Time] 32.1 s Normal 25.0-35.0 [facility] Comment on above: Result Comment: For Heparin anticoagulation therapy, the recommended therapeutic range is: 54-77 seconds (APTT Correlation with Anti-Xa therapeutic range of 0.3-0.7 units/ml). PLEASE REFERENCE THE PHARMACY PROTOCOL FOR DOSING. Performed By: #### A PTT #### [place] [address] aPTT Coag (Bld) [Time] 30.1 s Normal 25.0-35.0 [facility] Comment on above: Result Comment: For Heparin anticoagulation therapy, the recommended therapeutic range is: 54-77 seconds (APTT Correlation with Anti-Xa therapeutic range of 0.3-0.7 units/ml). PLEASE REFERENCE THE PHARMACY PROTOCOL FOR DOSING. Performed By: #### L IPID, DLDL, A1C #### [place] [id number] BMPon 07-26-2024 BUN/Creatinine Ratio 12.7 ratio Normal 10.0-22.0 [facility] Comment on above: Performed By: #### M G, BMP, GFR #### [place] [id number] Calcium [Mass/Vol] 9.4 mg/dL Normal 8.7-10.4 [facility] Comment on above: Performed By: #### M G, BMP, GFR #### [address] [address] Chloride [Moles/Vol] 108 mmol/L Normal 98-110 [facility] Comment on above: Performed By: #### M G, BMP, GFR #### [address] [address] CO2 [Moles/Vol] 25 mmol/L Normal 22-32 [facility] Comment on above: Performed By: #### M G, BMP, GFR #### [place] [id number] Creatinine [Mass/Vol] 1.02 mg/dL Normal 0.60-1.40 [facility] Comment on above: Result Comment: Test ing performed on ciValue analyzer using enzymatic creatinine methodology. Performed By: #### M G, BMP, GFR #### [place] [id number] Electrolyte Balance 7.0 mEq/L Normal 4.0-15.0 [facility] Comment on above: Performed By: #### M G, BMP, GFR #### [address] [address] Glucose [Mass/Vol] 142 mg/dL High 70-110 [facility] Comment on above: Performed By: #### M G, BMP, GFR #### [address] [address] Potassium [Moles/Vol] 3.9 mmol/L Normal 3.5-5.0 [facility] Comment on above: Performed By: #### M G, BMP, GFR #### [address] [address] Sodium [Moles/Vol] 140 mmol/L Normal 136-145 [facility] Comment on above: Performed By: #### M G, BMP, GFR #### [place] [id number] Urea nitrogen [Mass/Vol] 13.0 mg/dL Normal 8.0-22.0 [facility] Comment on above: Performed By: #### M G, BMP, GFR #### [address] [address] CBCon 07-26-2024 Erythrocyte distribution width (RBC) [Ratio] 13.8 % Normal 11.5-15.5 [facility] Comment on above: Performed By: #### A MARIJA, PRO, CBC, ADIFF, APTT #### [address] [address] Hematocrit (Bld) [Volume fraction] 41.7 % Normal 40.0-52.0 [facility] Comment on above: Performed By: #### A MARIJA, PRO, CBC, ADIFF, APTT #### [address] [address] Hgb 14.5 G/dL Normal 13.0-17.5 [facility] Comment on above: Performed By: #### A MARIJA, PRO, CBC, ADIFF, APTT #### [address] [address] MCH (RBC) [Entitic mass] 29.8 pg Normal 27.0-33.0 [facility] Comment on above: Performed By: #### A MARIJA, PRO, CBC, ADIFF, APTT #### [address] [address] MCHC 34.7 G/dL Normal 32.0-36.0 [facility] Comment on above: Performed By: #### A MARIJA, PRO, CBC, ADIFF, APTT #### [address] [address] MCV (RBC) [Entitic vol] 86.0 fL Normal 81.0-100.0 [facility] Comment on above: Performed By: #### A MARIJA, PRO, CBC, ADIFF, APTT #### [address] [address] Platelet 237 10 3/mcL Normal 150-450 [facility] Comment on above: Performed By: #### A MARIJA, PRO, CBC, ADIFF, APTT #### [address] [address] Platelet mean volume (Bld) [Entitic vol] 9.2 fL Normal 6.4-10.5 [facility] Comment on above: Performed By: #### A MARIJA, PRO, CBC, ADIFF, APTT #### [address] [address] RBC 4.85 10 6/mcL Normal 4.50-6.00 [facility] Comment on above: Performed By: #### A MARIJA, PRO, CBC, ADIFF, APTT #### [address] [address] WBC 8.1 10 3/mcL Normal 4.5-10.8 [facility] Comment on above: Performed By: #### A MARIJA, PRO, CBC, ADIFF, APTT #### [address] [address] LABORATORYOrdered By: SYSTEM SYSTEM on 07-26-2024 aPTT Coag (Bld) [Time] 32.1 s Normal 25.0 - 35.0 seconds AH [facility] SS Comment on above: Interpretive Data: F or Heparin anticoagulation therapy, the recommended therapeutic range is: 54-77 seconds (APTT Correlation with Anti-Xa therapeutic range of 0.3-0.7 units/ml). PLEASE REFERENCE THE PHARMACY PROTOCOL FOR DOSING. aPTT Coag (Bld) [Time] 30.1 s Normal 25.0 - 35.0 seconds [facility] SS Comment on above: Interpretive Data: F or Heparin anticoagulation therapy, the recommended therapeutic range is: 54-77 seconds (APTT Correlation with Anti-Xa therapeutic range of 0.3-0.7 units/ml). PLEASE REFERENCE THE PHARMACY PROTOCOL FOR DOSING. Basophils (Bld) [#/Vol] 0.1 103/mcL Normal 0.0 - 0.3 10^3/mcL Workflow SS Basophils/100 WBC (Bld) 1.0 % Normal 0.0 - 2.5 % Workflow SS Calcium [Mass/Vol] 9.4 mg/dL Normal 8.7 - 10. 4 mg/dL ADM SS Chloride [Moles/Vol] 108 mmol/L Normal 98 - 110 mEq/L ADM SS CO2 [Moles/Vol] 25 mmol/L Normal 22 - 32 mEq/L ADM SS Creatinine [Mass/Vol] 1.02 mg/dL Normal 0.60 - 1.40 mg/dL ADM SS Comment on above: Interpretive Data: T esting performed on ciValue analyzer using enzymatic creatinine methodology. Electrolyte Balance 7.0 mEq/L Normal 4.0 - 15 .0 mEq/L ADM SS Eosinophils (Bld) [#/Vol] 0.9 103/mcL High 0.0 - 0.7 10^3/mcL Workflow SS Eosinophils/100 WBC (Bld) 11.7 % High 0.0 - 6.0 % Workflow SS Erythrocyte distribution width (RBC) [Ratio] 13.8 % Normal 11.5 - 15.5 % Workflow SS GFR/1.73 sq M.predicted among blacks MDRD (S/P/Bld) [Vol rate/Area] ml/min/1.73sqm Invalid Interpretation Code ADM SS Comment on above: Interpretive Data: GFR Population mean for , Non- Americans Ages 20-29 = 116 mL/min/1.73 sq.m. Ages 30-39 = 107 mL/min/1.73 sq.m. Ages 40-49 = 99 mL/min/1.73 sq.m. Ages 50-59 = 93 mL/min/1.73 sq.m. Ages 60-69 = 85 mL/min/1.73 sq.m. Ages 70+ = 75 mL/min/1.73 sq.m. Chronic Kidney Disease: Less than 60 mL/min/1.73 square meters End Stage Renal Disease: Less than 15 mL/min/1.73 square meters GFR/1.73 sq M.predicted among non-blacks MDRD (S/P/Bld) [Vol rate/Area] ml/min/1.73sqm Invalid Interpretation Code ADM SS Comment on above: Interpretive Data: GFR Population mean for , Non- Americans Ages 20-29 = 116 mL/min/1.73 sq.m. Ages 30-39 = 107 mL/min/1.73 sq.m. Ages 40-49 = 99 mL/min/1.73 sq.m. Ages 50-59 = 93 mL/min/1.73 sq.m. Ages 60-69 = 85 mL/min/1.73 sq.m. Ages 70+ = 75 mL/min/1.73 sq.m. Chronic Kidney Disease: Less than 60 mL/min/1.73 square meters End Stage Renal Disease: Less than 15 mL/min/1.73 square meters Glucose [Mass/Vol] 142 mg/dL High 70 - 110 mg/dL ADM SS Hematocrit (Bld) [Volume fraction] 41.7 % Normal 40.0 - 52.0 % Workflow SS Hemoglobin (Bld) [Mass/Vol] 14.5 G/dL Normal 13.0 - 17.5 G/dL AH Workflow SS Lymphocytes (Bld) [#/Vol] 2.0 103/mcL Normal 0.9 - 4.3 10^3/mcL Workflow SS Lymphocytes/100 WBC (Bld) 24.4 % Normal 20.0 - 40.0 % Workflow SS Magnesium [Mass/Vol] 2.1 mg/dL Normal 1.6 - 2.4 mg/dL ADM SS MCH (RBC) [Entitic mass] 29.8 pg Normal 27.0 - 33.0 pg Workflow SS MCHC 34.7 G/dL Normal 32.0 - 36.0 G/dL Workflow SS MCV (RBC) [Entitic vol] 86.0 fL Normal 81.0 - 100.0 fL Workflow SS Monocytes (Bld) [#/Vol] 0.7 103/mcL Normal 0.1 - 1.4 10^3/mcL Workflow SS Monocytes/100 WBC (Bld) 8.5 % Normal 2.0 - 13.0 % Workflow SS Neutrophils (Bld) [#/Vol] 4.4 103/mcL Normal 2.3 - 8.1 10^3/mcL Workflow SS Neutrophils/100 WBC (Bld) 54.4 % Normal 50.0 - 75.0 % Workflow SS Platelet mean volume (Bld) [Entitic vol] 9.2 fL Normal 6.4 - 10.5 fL Workflow SS Platelets (Bld) [#/Vol] 237 103/mcL Normal 150 - 450 10^3/mcL Workflow SS Potassium [Moles/Vol] 3.9 mmol/L Normal 3.5 - 5.0 mEq/L ADM SS PT Coag (PPP) [Time] 10.1 s Normal 9.0 - 14.4 seconds [facility] Comment on above: Interpretive Data: E ffective 05/24/08, Protime results may be affected by some antibiotics (i.e. Ciprofloxacin, Azithromycin, Bactrim) which may potentiate the action of oral anticoagulants, with further increases in Protime/INR. PT International Ratio 0.9 ratio Invalid Interpretation Code [facility] Comment on above: Interpretive Data: Ceasar duong [employer] (CHEST, 1992, 102:312S-25S) recommended therapeutic range for oral anticoagulant therapy is: LOW RISK: Prophylaxis of venous thrombosis INR: 2.0-3.0 Treatment of pulmonary embolism 2.0-3.0 Prevention of systemic embolism 2.0-3.0 HIGH RISK: Mechanical prosthetic valves 2.5-3.5 RBC (Bld) [#/Vol] 4.85 106/mcL Normal 4.50 - 6.0 0 10^6/mcL Workflow SS Sodium [Moles/Vol] 140 mmol/L Normal 136 - 145 mEq/L ADM Troponin I.cardiac DL <= 0.01 ng/mL [Mass/Vol] 143 ng/L High 0 - 54 ng/L ADM SS Comment on above: Interpretive Data: High Sensitive Troponin I Reference Ranges: Female: 0-34 ng/L Male: 0-54 ng/L Testing performed on [employer] analyzer using direct chemiluminescent technology. Urea nitrogen [Mass/Vol] 13.0 mg/dL Normal 8.0 - 22.0 mg/dL ADM SS Urea nitrogen/Creatinine [Mass ratio] 12.7 ratio Normal 10.0 - 22.0 ratio ADM SS WBC (Bld) [#/Vol] 8.1 103/mcL Normal 4.5 - 10.8 10^3/mcL Workflow SS MGon 07-26-2024 Magnesium [Mass/Vol] 2.1 mg/dL Normal 1.6-2.4 [facility] Comment on above: Performed By: #### M G, BMP, GFR #### [facility] [address] [place] [address] PROon 07-26-2024 INR Coag (PPP) [Relative time] 0.9 {INR} Normal [facility] Comment on above: Result Comment: [employer] [place] [employer] (CHEST, 1992, 102:312S-25S) recommended therapeutic range for oral anticoagulant therapy is: LOW RISK: Prophylaxis of venous thrombosis INR: 2.0-3.0 Treatment of pulmonary embolism 2.0-3.0 Prevention of systemic embolism 2.0-3.0 HIGH RISK: Mechanical prosthetic valves 2.5-3.5 Performed By: #### L MAREK YOUNG, A1C #### [address] [address] PT Coag (PPP) [Time] 10.1 s Normal 9.0-14.4 [facility] Comment on above: Result Comment: Effe ctive 05/24/08, Protime results may be affected by some antibiotics (i.e. Ciprofloxacin, Azithromycin, Bactrim) which may potentiate the action of oral anticoagulants, with further increases in Protime/INR. Performed By: #### L HANNAH, MAREK, A1C #### [facility] [address] [place] [address] TROPHSon 07-26-2024 High Sensitivity Troponin I 143 ng/L High 0-54 [facility] Comment on above: Result Comment: High Sensitive Troponin I Reference Ranges: Female: 0-34 ng/L Male: 0-54 ng/L Testing performed on [employer] IM analyzer using direct chemiluminescent technology. Performed By: #### L IPIDNIKHILL, A1C #### [address] [address] .Auto Diffon 07-25-2024 Basophil, Absolute 0.1 10 3/mcL Normal 0.0-0.3 [facility] Comment on above: Performed By: #### L IPID DLDL, A1C #### [address] [address] Basophils/100 WBC (Bld) 1.1 % Normal 0.0-2.5 [facility] Comment on above: Performed By: #### L IPID DLDL, A1C #### [address] [address] Eosinophil, Absolute 1.0 10 3/mcL High 0.0-0.7 [facility] Comment on above: Performed By: #### L IPID DLDL, A1C #### [address] [address] Eosinophils/100 WBC (Bld) 11.9 % High 0.0-6.0 [facility] Comment on above: Performed By: #### L IPID DLDL, A1C #### [address] [address] Lymphocyte, Absolute 1.8 10 3/mcL Normal 0.9-4.3 [facility] Comment on above: Performed By: #### L IPID, DLDL, A1C #### [address] [address] Lymphocytes/100 WBC (Bld) 22.8 % Normal 20.0-40.0 [facility] Comment on above: Performed By: #### L IPID, DLDL, A1C #### [address] [address] Monocyte, Absolute 0.8 10 3/mcL Normal 0.1-1.4 [facility] Comment on above: Performed By: #### L IPID, DLDL, A1C #### [address] [address] Monocytes/100 WBC (Bld) 9.9 % Normal 2.0-13.0 [facility] Comment on above: Performed By: #### L IPIDNIKHILL, A1C #### [facility] [address] [place] [address] Neutrophils/100 WBC (Bld) 54.3 % Normal 50.0-75.0 [facility] Comment on above: Performed By: #### L IPIDMAREK, A1C #### [facility] [address] [place] [address] .GFRon 07-25-2024 GFR >60 Normal [facility] Comment on above: Result Comment: GFR Population mean for , Non- Americans Ages 20-29 = 116 mL/min/1.73 sq.m. Ages 30-39 = 107 mL/min/1.73 sq.m. Ages 40-49 = 99 mL/min/1.73 sq.m. Ages 50-59 = 93 mL/min/1.73 sq.m. Ages 60-69 = 85 mL/min/1.73 sq.m. Ages 70+ = 75 mL/min/1.73 sq.m. Chronic Kidney Disease: Less than 60 mL/min/1.73 square meters End Stage Renal Disease: Less than 15 mL/min/1.73 square meters Performed By: #### L IPID DLDL, A1C #### [address] [address] GFR Non- >60 Normal [facility] Comment on above: Result Comment: GFR Population mean for , Non- Americans Ages 20-29 = 116 mL/min/1.73 sq.m. Ages 30-39 = 107 mL/min/1.73 sq.m. Ages 40-49 = 99 mL/min/1.73 sq.m. Ages 50-59 = 93 mL/min/1.73 sq.m. Ages 60-69 = 85 mL/min/1.73 sq.m. Ages 70+ = 75 mL/min/1.73 sq.m. Chronic Kidney Disease: Less than 60 mL/min/1.73 square meters End Stage Renal Disease: Less than 15 mL/min/1.73 square meters Performed By: #### L IPID, DLDL, A1C #### [address] [address] .NEUABSon 07-25-2024 Neutrophil, Absolute 4.4 10 3/mcL Normal 2.3-8.1 [facility] Comment on above: Performed By: #### L IPID, DLDL, A1C #### [place] [id number] A1Con 07-25-2024 Glucose [Mass/Vol] 137 mg/dL Normal [facility] Comment on above: Result Comment: Pato mated Average Glucose calculated by equation ((28.7xA1C)-46.7) Estimated average glucose (eAG) is a calculated value from Hemoglobin A1C and is entry level marketing representative of the average blood glucose level in the last 2-3 month period. Normal range: less than 114 mg/dL Performed By: #### L IPID, DLDL, A1C #### [place] [address] HbA1c (Bld) [Mass fraction] 6.4 % High 4.0-6.0 [facility] Comment on above: Performed By: #### L IPID, DLDL, A1C #### [place] [address] BMPon 07-25-2024 BUN/Creatinine Ratio 13.3 ratio Normal 10.0-22.0 [facility] Comment on above: Performed By: #### L IPID, DLDL, A1C #### [address] [address] Calcium [Mass/Vol] 9.4 mg/dL Normal 8.7-10.4 [facility] Comment on above: Performed By: #### L IPID, DLDL, A1C #### [address] [address] Chloride [Moles/Vol] 109 mmol/L Normal 98-110 [facility] Comment on above: Performed By: #### L IPID, DLDL, A1C #### [place] [id number] CO2 [Moles/Vol] 24 mmol/L Normal 22-32 [facility] Comment on above: Performed By: #### L IPID DLDL, A1C #### [address] [address] Creatinine [Mass/Vol] 1.05 mg/dL Normal 0.60-1.40 [facility] Comment on above: Result Comment: Test ing performed on [employer] analyzer using enzymatic creatinine methodology. Performed By: #### L IPID DLDL, A1C #### [address] [address] Electrolyte Balance 8.0 mEq/L Normal 4.0-15.0 [facility] Comment on above: Performed By: #### L IPNIKHIL FORBESL, A1C #### [place] [id number] Glucose [Mass/Vol] 133 mg/dL High 70-110 [facility] Comment on above: Performed By: #### L NIKHIL YOUNGL, A1C #### [place] [phone] Potassium [Moles/Vol] 3.9 mmol/L Normal 3.5-5.0 [facility] Comment on above: Performed By: #### L NIKHIL YOUNGL, A1C #### [place] [phone] Sodium [Moles/Vol] 141 mmol/L Normal 136-145 [facility] Comment on above: Performed By: #### L ZEEID DLDL, A1C #### [address] [address] Urea nitrogen [Mass/Vol] 14.0 mg/dL Normal 8.0-22.0 [facility] Comment on above: Performed By: #### L IPID DLDL, A1C #### [address] [address] CBCon 07-25-2024 Erythrocyte distribution width (RBC) [Ratio] 13.6 % Normal 11.5-15.5 [facility] Comment on above: Performed By: #### L IPID DLDL, A1C #### [address] [address] Hematocrit (Bld) [Volume fraction] 42.5 % Normal 40.0-52.0 [facility] Comment on above: Performed By: #### L IPNIKHIL FORBESL, A1C #### [place] [address] Hgb 14.7 G/dL Normal 13.0-17.5 [facility] Comment on above: Performed By: #### L IPID DLDL, A1C #### [place] [address] MCH (RBC) [Entitic mass] 29.7 pg Normal 27.0-33.0 [facility] Comment on above: Performed By: #### L IPNIKHIL FORBESL, A1C #### [place] [address] MCHC 34.5 G/dL Normal 32.0-36.0 [facility] Comment on above: Performed By: #### L IPID DLDL, A1C #### [place] [address] MCV (RBC) [Entitic vol] 85.9 fL Normal 81.0-100.0 [facility] Comment on above: Performed By: #### L IPNIKHIL FORBESL, A1C #### [place] [address] Platelet 256 10 3/mcL Normal 150-450 [facility] Comment on above: Performed By: #### L IPID DLDL, A1C #### [place] [address] Platelet mean volume (Bld) [Entitic vol] 9.3 fL Normal 6.4-10.5 [facility] Comment on above: Performed By: #### L IPID DLDL, A1C #### [place] [phone] RBC 4.95 10 6/mcL Normal 4.50-6.00 [facility] Comment on above: Performed By: #### L IPID, DLDL, A1C #### [place] [address] WBC 8.0 10 3/mcL Normal 4.5-10.8 [facility] Comment on above: Performed By: #### L IPID, DLDL, A1C #### [address] [address] DLDLon 07-25-2024 Direct LDL Cholesterol 141 mg/dL High 0-99 [facility] Comment on above: Result Comment: Dire ct LDL Cholesterol Reference Interval: Optimal: <100 mg/dL Near Optimal/above optimal: 100-129 mg/dL Borderline high: 130-159 mg/dL High: 160-189 mg/dL Very high: >=190 mg/dL Performed By: #### L IPID, DLDL, A1C #### [address] [address] LABORATORYOrdered By: SYSTEM SYSTEM on 07-25-2024 Basophils (Bld) [#/Vol] 0.1 103/mcL Normal 0.0 - 0.3 10^3/mcL AH Workflow SS Basophils/100 WBC (Bld) 1.1 % Normal 0.0 - 2.5 % AH Workflow SS Calcium [Mass/Vol] 9.4 mg/dL Normal 8.7 - 10. 4 mg/dL ADM SS Chloride [Moles/Vol] 109 mmol/L Normal 98 - 110 mEq/L ADM SS Cholesterol in LDL [Mass/Vol] 141 mg/dL High 0 - 99 mg/dL ADM SS Comment on above: Interpretive Data: D irect LDL Cholesterol Reference Interval: Optimal: <100 mg/dL Near Optimal/above optimal: 100-129 mg/dL Borderline high: 130-159 mg/dL High: 160-189 mg/dL Very high: >=190 mg/dL CO2 [Moles/Vol] 24 mmol/L Normal 22 - 32 mEq/L ADM SS Creatinine [Mass/Vol] 1.05 mg/dL Normal 0.60 - 1.40 mg/dL ADM SS Comment on above: Interpretive Data: T esting performed on [employer] analyzer using enzymatic creatinine methodology. Electrolyte Balance 8.0 mEq/L Normal 4.0 - 15 .0 mEq/L AH ADM SS Eosinophils (Bld) [#/Vol] 1.0 103/mcL High 0.0 - 0.7 10^3/mcL AH Workflow SS Eosinophils/100 WBC (Bld) 11.9 % High 0.0 - 6.0 % Workflow SS Erythrocyte distribution width (RBC) [Ratio] 13.6 % Normal 11.5 - 15.5 % Workflow SS GFR/1.73 sq M.predicted among blacks MDRD (S/P/Bld) [Vol rate/Area] ml/min/1.73sqm Invalid Interpretation Code ADM SS Comment on above: Interpretive Data: GFR Population mean for , Non- Americans Ages 20-29 = 116 mL/min/1.73 sq.m. Ages 30-39 = 107 mL/min/1.73 sq.m. Ages 40-49 = 99 mL/min/1.73 sq.m. Ages 50-59 = 93 mL/min/1.73 sq.m. Ages 60-69 = 85 mL/min/1.73 sq.m. Ages 70+ = 75 mL/min/1.73 sq.m. Chronic Kidney Disease: Less than 60 mL/min/1.73 square meters End Stage Renal Disease: Less than 15 mL/min/1.73 square meters GFR/1.73 sq M.predicted among non-blacks MDRD (S/P/Bld) [Vol rate/Area] ml/min/1.73sqm Invalid Interpretation Code ADM SS Comment on above: Interpretive Data: GFR Population mean for , Non- Americans Ages 20-29 = 116 mL/min/1.73 sq.m. Ages 30-39 = 107 mL/min/1.73 sq.m. Ages 40-49 = 99 mL/min/1.73 sq.m. Ages 50-59 = 93 mL/min/1.73 sq.m. Ages 60-69 = 85 mL/min/1.73 sq.m. Ages 70+ = 75 mL/min/1.73 sq.m. Chronic Kidney Disease: Less than 60 mL/min/1.73 square meters End Stage Renal Disease: Less than 15 mL/min/1.73 square meters Glucose [Mass/Vol] 133 mg/dL High 70 - 110 mg/dL ADM SS Glucose [Mass/Vol] 137 mg/dL Invalid Interpretation Code Auto Chem SS Comment on above: Interpretive Data: E stimated average glucose (eAG) is a calculated value from Hemoglobin A1C and is entry level marketing representative of the average blood glucose level in the last 2-3 month period. Normal range: less than 114 mg/dL HbA1c (Bld) [Mass fraction] 6.4 % High 4.0 - 6.0 % Auto Chem SS Hematocrit (Bld) [Volume fraction] 42.5 % Normal 40.0 - 52.0 % Workflow SS Hemoglobin (Bld) [Mass/Vol] 14.7 G/dL Normal 13.0 - 17.5 G/dL AH Workflow SS Lymphocytes (Bld) [#/Vol] 1.8 103/mcL Normal 0.9 - 4.3 10^3/mcL Workflow SS Lymphocytes/100 WBC (Bld) 22.8 % Normal 20.0 - 40.0 % Workflow SS Magnesium [Mass/Vol] 2.1 mg/dL Normal 1.6 - 2.4 mg/dL ADM SS MCH (RBC) [Entitic mass] 29.7 pg Normal 27.0 - 33.0 pg Workflow SS MCHC 34.5 G/dL Normal 32.0 - 36.0 G/dL Workflow SS MCV (RBC) [Entitic vol] 85.9 fL Normal 81.0 - 100.0 fL Workflow SS Monocytes (Bld) [#/Vol] 0.8 103/mcL Normal 0.1 - 1.4 10^3/mcL Workflow SS Monocytes/100 WBC (Bld) 9.9 % Normal 2.0 - 13.0 % Workflow SS Natriuretic peptide.B prohormone N-Terminal IA [Mass/Vol] 583 pg/mL High 0 - 450 pg/mL ADM SS Neutrophils (Bld) [#/Vol] 4.4 103/mcL Normal 2.3 - 8.1 10^3/mcL Workflow SS Neutrophils/100 WBC (Bld) 54.3 % Normal 50.0 - 75.0 % Workflow SS Platelet mean volume (Bld) [Entitic vol] 9.3 fL Normal 6.4 - 10.5 fL Workflow SS Platelets (Bld) [#/Vol] 256 103/mcL Normal 150 - 450 10^3/mcL Workflow SS Potassium [Moles/Vol] 3.9 mmol/L Normal 3.5 - 5.0 mEq/L ADM SS RBC (Bld) [#/Vol] 4.95 106/mcL Normal 4.50 - 6.0 0 10^6/mcL AH Workflow SS Sodium [Moles/Vol] 141 mmol/L Normal 136 - 145 mEq/L AH ADM SS TSH Qn 1.246 mIU/mL Normal 0.550 - 4.780 mIU/mL AH ADM SS Comment on above: Interpretive Data: * *Note - New Reference Range in effect 20 Urea nitrogen [Mass/Vol] 14.0 mg/dL Normal 8.0 - 22.0 mg/dL AH ADM SS Urea nitrogen/Creatinine [Mass ratio] 13.3 ratio Normal 10.0 - 22.0 ratio AH ADM SS WBC (Bld) [#/Vol] 8.0 103/mcL Normal 4.5 - 10.8 10^3/mcL AH Workflow SS aPTT Coag (PPP) [Time] 30.5 s Normal 25.0 - 35.0 seconds AO [facility] SS Comment on above: Interpretive Data: F or Heparin anticoagulation therapy, the recommended therapeutic range is: 45.4-75.9 seconds. Patients on heparin therapy may have an extreme result. CK [Catalytic activity/Vol] 238 U/L Normal 39 - 308 U/L AO ADM SS INR Coag (PPP) [Relative time] 0.9 {INR} Invalid Interpretation Code AO [facility] SS Comment on above: Interpretive Data: Ceasar duong [employer] [place] [employer] (CHEST, 1992, 102:312S-25S) recommended therapeutic range for oral anticoagulant therapy is: LOW RISK: Prophylaxis of venous thrombosis INR: 2.0-3.0 Treatment of pulmonary embolism 2.0-3.0 Prevention of systemic embolism 2.0-3.0 HIGH RISK: Mechanical prosthetic valves 2.5-3.5 PT Coag (PPP) [Time] 10.3 s Normal 9.0 - 14.4 seconds AO [facility]oHub SS Troponin I.cardiac DL <= 0.01 ng/mL [Mass/Vol] 127 ng/L High 0 - 76 ng/L AO ADM SS Comment on above: Interpretive Data: H igh Sensitive Troponin I Reference Ranges: Female: 0-51 ng/L Male: 0-76 ng/L Testing performed on [employer] using a homogeneous sandwich chemiluminescent immunoassay based on [employer] technology. Basophils (Bld) [#/Vol] 0.1 103/mcL Normal 0.0 - 0.2 10^3/mcL AO Workflow SS Basophils/100 WBC (Bld) 1.0 % Normal 0.0 - 2.5 % AO Workflow SS Calcium [Mass/Vol] 9.0 mg/dL Normal 8.4 - 10. 2 mg/dL AO ADM SS Chloride [Moles/Vol] 104 mmol/L Normal 98 - 107 mmol/L AO ADM SS CO2 [Moles/Vol] 32 mmol/L High 22 - 29 mmol/L AO ADM SS Creatinine [Mass/Vol] 1.37 mg/dL High 0.70 - 1.30 mg/dL AO ADM SS Comment on above: Interpretive Data: T esting performed on [employer] Dimension EXL analyzer using a modified kinetic Rashmi technique. Electrolyte Balance 1.0 mEq/L Low 4.0 - 15 .0 mEq/L AO ADM SS Eosinophil, Absolute 0.9 103/mcL High 0.0 - 0.4 10^3/mcL AO Workflow SS Eosinophils/100 WBC (Bld) 7.7 % High 0.0 - 7.0 % AO Workflow SS Erythrocyte distribution width (RBC) [Ratio] 13.9 % Normal 11.5 - 14.5 % AO Workflow SS GFR/1.73 sq M.predicted among blacks MDRD (S/P/Bld) [Vol rate/Area] 71 ml/min/1.73sqm Invalid Interpretation Code AO Chemistry S Comment on above: Interpretive Data: GFR Population mean for , Non- Americans Ages 20-29 = 116 mL/min/1.73 sq.m. Ages 30-39 = 107 mL/min/1.73 sq.m. Ages 40-49 = 99 mL/min/1.73 sq.m. Ages 50-59 = 93 mL/min/1.73 sq.m. Ages 60-69 = 85 mL/min/1.73 sq.m. Ages 70+ = 75 mL/min/1.73 sq.m. Chronic Kidney Disease: Less than 60 mL/min/1.73 square meters End Stage Renal Disease: Less than 15 mL/min/1.73 square meters GFR/1.73 sq M.predicted among non-blacks MDRD (S/P/Bld) [Vol rate/Area] 58 ml/min/1.73sqm Invalid Interpretation Code AO Chemistry S Comment on above: Interpretive Data: GFR Population mean for , Non- Americans Ages 20-29 = 116 mL/min/1.73 sq.m. Ages 30-39 = 107 mL/min/1.73 sq.m. Ages 40-49 = 99 mL/min/1.73 sq.m. Ages 50-59 = 93 mL/min/1.73 sq.m. Ages 60-69 = 85 mL/min/1.73 sq.m. Ages 70+ = 75 mL/min/1.73 sq.m. Chronic Kidney Disease: Less than 60 mL/min/1.73 square meters End Stage Renal Disease: Less than 15 mL/min/1.73 square meters Glucose [Mass/Vol] 127 mg/dL High 70 - 105 mg/dL AO ADM SS Hematocrit (Bld) [Volume fraction] 46.0 % Normal 42.0 - 52.0 % AO Workflow SS Hemoglobin (Bld) [Mass/Vol] 15.8 G/dL Normal 14.0 - 18.0 G/dL AO Workflow SS Lymphocytes (Bld) [#/Vol] 2.4 103/mcL Normal 0.8 - 3.9 10^3/mcL AO Workflow SS Lymphocytes/100 WBC (Bld) 21.1 % Normal 10.0 - 50.0 % AO Workflow SS Magnesium [Mass/Vol] 2.0 mg/dL Normal 1.8 - 2.4 mg/dL AO ADM SS MCH (RBC) [Entitic mass] 29.7 pg Normal 27.0 - 31.2 pg AO Workflow SS MCHC 34.4 G/dL Normal 31.8 - 35.4 G/dL AO Workflow SS MCV (RBC) [Entitic vol] 86.2 fL Normal 80.0 - 94.0 fL AO Workflow SS Monocyte distribution width Auto (Bld) [Entitic vol] 18.05 1 Normal 0.00 - 20.00 AO Workflow SS Comment on above: Result Comment: For ED adult patients suspected of sepsis, MDW<=20.0 does not rule out sepsis or risk of sepsis Monocytes (Bld) [#/Vol] 0.9 103/mcL Normal 0.2 - 1.0 10^3/mcL AO Workflow SS Monocytes/100 WBC (Bld) 7.4 % Normal 1.7 - 13.0 % AO Workflow SS Natriuretic peptide.B prohormone N-Terminal [Mass/Vol] 980 pg/mL High 0 - 125 pg/mL AO ADM SS Comment on above: Interpretive Data: N T-proBNP results of less than 300 pg/mL effectively rules out acute congestive heart failure with 99% negative predictive value. Neutrophils (Bld) [#/Vol] 7.3 103/mcL High 2.9 - 6.2 10^3/mcL AO Workflow SS Neutrophils/100 WBC (Bld) 62.8 % Normal 37.0 - 80.0 % AO Workflow SS Platelet mean volume (Bld) [Entitic vol] 9.1 fL Normal 7.4 - 10.4 fL AO Workflow SS Platelets (Bld) [#/Vol] 270 103/mcL Normal 130 - 400 10^3/mcL AO Workflow SS Potassium [Moles/Vol] 4.0 mmol/L Normal 3.5 - 5.1 mmol/L AO ADM SS RBC (Bld) [#/Vol] 5.34 106/mcL Normal 4.04 - 6.1 3 10^6/mcL AO Workflow SS Sodium [Moles/Vol] 137 mmol/L Normal 136 - 145 mmol/L AO ADM SS Troponin I.cardiac DL <= 0.01 ng/mL [Mass/Vol] 141 ng/L High 0 - 76 ng/L AO ADM SS Comment on above: Interpretive Data: H igh Sensitive Troponin I Reference Ranges: Female: 0-51 ng/L Male: 0-76 ng/L Testing performed on [employer] using a homogeneous sandwich chemiluminescent immunoassay based on [employer] technology. Urea nitrogen [Mass/Vol] 13 mg/dL Normal 7 - 18 mg/dL AO ADM SS Urea nitrogen/Creatinine [Mass ratio] 9 ratio Normal 7 - 27 ratio AO ADM SS WBC (Bld) [#/Vol] 11.6 103/mcL High 4.6 - 10.8 10^3/mcL AO Workflow SS LABORATORYOrdered By: Marija Bacon on 07-25-2024 Cholesterol [Mass/Vol] 244 mg/dL High 50 - 199 mg/dL AH ADM SS Comment on above: Interpretive Data: C holesterol Reference Interval: Less than 200 Desirable 200-239 Borderline high risk 240 and above High risk Cholesterol in HDL [Mass/Vol] 33 mg/dL Low 40 - 59 mg/dL AH ADM SS Cholesterol in LDL [Mass/Vol] Not Valid Invalid Interpretation Code 0 - 129 AH ADM SS Comment on above: Result Comment: Trig lyceride >400 invalidates the calculated LDL. Triglyceride [Mass/Vol] 542 mg/dL High 3 - 149 mg/dL AH ADM SS LABORATORYOrdered By: Sherrell Olivera on 07-25-2024 Amphetamines Screen Ql (U) Positive *ABN* (07/25/24 1:49 PM) Invalid Interpretation Code Negative AO ADM SS Barbiturates Screen Ql (U) Negative *NA* (07/25/24 1:49 PM) Invalid Interpretation Code Negative AO ADM SS Benzodiazepines Ql (U) Negative *NA* (07/25/24 1:49 PM) Invalid Interpretation Code Negative AO ADM SS Benzoylecgonine Screen Ql (U) Negative *NA* (07/25/24 1:49 PM) Invalid Interpretation Code Negative AO ADM SS Cannabinoids Screen Ql (U) Negative *NA* (07/25/24 1:49 PM) Invalid Interpretation Code Negative AO ADM SS Methadone Screen Ql (U) Negative *NA* (07/25/24 1:49 PM) Invalid Interpretation Code Negative AO ADM SS Opiates Screen Ql (U) Negative *NA* (07/25/24 1:49 PM) Invalid Interpretation Code Negative AO ADM SS Phencyclidine Ql (U) Negative *NA* (07/25/24 1:49 PM) Invalid Interpretation Code Negative AO ADM SS Urine Drugs screened: See Below 8 (07/25/24 1:49 PM) Normal AO Chemistry S Comment on above: Interpretive Data: T his drug screen is a presumptive screening only. No confirmation will be performed unless requested. Drugs screened include: Threshold Amphetamines/Methamphetamines 1,000 ng/mL Barbiturates 200 ng/mL Benzodiazepine metabolites 200 ng/mL Cannabinoids (THC metabolites) 50 ng/mL Cocaine 300 ng/mL Opiates 300 ng/mL Methadone 300 ng/mL Phencyclidine (PCP) 25 ng/mL Testing has been performed FOR MEDICAL PURPOSES ONLY. LIPIDon 07-25-2024 Cholesterol [Mass/Vol] 244 mg/dL High 50-199 [facility] Comment on above: Result Comment: Chol esterol Reference Interval: Less than 200 Desirable 200-239 Borderline high risk 240 and above High risk Performed By: #### L IPID, DLDL, A1C #### [place] [address] [address] Cholesterol in HDL [Mass/Vol] 33 mg/dL Low 40-59 [facility] Comment on above: Performed By: #### L IPNIKHIL FORBESL, A1C #### [address] [address] LDL Cholesterol Not Valid Normal 0-129 [facility] Comment on above: Result Comment: Trig lyceride >400 invalidates the calculated LDL. Performed By: #### L IPIDNIKHILL, A1C #### [address] [address] Triglyceride [Mass/Vol] 542 mg/dL High 3-149 [facility] Comment on above: Performed By: #### L NIKHIL YOUNGL, A1C #### [address] [address] MGon 07-25-2024 Magnesium [Mass/Vol] 2.1 mg/dL Normal 1.6-2.4 [facility] Comment on above: Performed By: #### L NIKHIL YOUNGL, A1C #### [address] [address] PBNPon 07-25-2024 Natriuretic peptide B (Bld) [Mass/Vol] 583 pg/mL High 0-450 [facility] Comment on above: Performed By: #### L ZEEID DLDL, A1C #### [address] [address] TSHon 07-25-2024 TSH 1.246 mIU/mL Normal 0.550-4.780 [facility] Comment on above: Result Comment: No te - New Reference Range in effect 20 Performed By: #### L IPID, DLDL, A1C #### [address] [address] .Auto Diffon 06-01-2024 Basophil, Absolute 0.1 10 3/mcL Normal 0.0-0.2 [facility] ([place]) Comment on above: Performed By: #### D RUGU #### [facility] [address] [place], [place] [address] Basophils/100 WBC (Bld) 0.9 % Normal 0.0-2.5 [facility] ([place]) Comment on above: Performed By: #### D RUGU #### [facility] [address] [place], [place] [address] Eosinophil, Absolute 0.6 10 3/mcL High 0.0-0.4 [facility] ([place]) Comment on above: Performed By: #### D RUGU #### [facility] [address] [place], [place] [address] Eosinophils/100 WBC (Bld) 5.5 % Normal 0.0-7.0 [facility] ([place]) Comment on above: Performed By: #### D RUGU #### [facility] [address] [place], [place] [address] Lymphocyte, Absolute 2.4 10 3/mcL Normal 0.8-3.9 [facility] ([place]) Comment on above: Performed By: #### D RUGU #### [facility] [address] [place], [place] [address] Lymphocytes/100 WBC (Bld) 22.7 % Normal 10.0-50.0 [facility] [facility] ([place]) Comment on above: Performed By: #### D RUGU #### Mary [address] [place], [place] [address] Monocyte, Absolute 0.8 10 3/mcL Normal 0.2-1.0 [facility] ([place]) Comment on above: Performed By: #### D RUGU #### Mary [address] [place], [place] [address] Monocytes/100 WBC (Bld) 7.7 % Normal 1.7-13.0 [facility] ([place]) Comment on above: Performed By: #### D RUGU #### Mary [address] [place], [place] [address] Neutrophils/100 WBC (Bld) 63.2 % Normal 37.0-80.0 [facility] ([place]) Comment on above: Performed By: #### D RUGU #### Mary [address] [place], [place] [address] .GFRon 06-01-2024 GFR Non- 45 ml/min/1.73sqm Normal [facility] ([place]) Comment on above: Result Comment: GFR Population mean for , Non- Americans Ages 20-29 = 116 mL/min/1.73 sq.m. Ages 30-39 = 107 mL/min/1.73 sq.m. Ages 40-49 = 99 mL/min/1.73 sq.m. Ages 50-59 = 93 mL/min/1.73 sq.m. Ages 60-69 = 85 mL/min/1.73 sq.m. Ages 70+ = 75 mL/min/1.73 sq.m. Chronic Kidney Disease: Less than 60 mL/min/1.73 square meters End Stage Renal Disease: Less than 15 mL/min/1.73 square meters Performed By: #### D ADWOA #### Mary [address] [place], [place] [address] GFR 54 ml/min/1.73sqm Normal [facility] ([place]) Comment on above: Result Comment: GFR Population mean for , Non- Americans Ages 20-29 = 116 mL/min/1.73 sq.m. Ages 30-39 = 107 mL/min/1.73 sq.m. Ages 40-49 = 99 mL/min/1.73 sq.m. Ages 50-59 = 93 mL/min/1.73 sq.m. Ages 60-69 = 85 mL/min/1.73 sq.m. Ages 70+ = 75 mL/min/1.73 sq.m. Chronic Kidney Disease: Less than 60 mL/min/1.73 square meters End Stage Renal Disease: Less than 15 mL/min/1.73 square meters Performed By: #### D DORENEU #### Mary [address] [place], [place] [address] .MDWon 06-01-2024 Monocyte Distribution Width 17.05 Normal 0.00-20.00 [facility] ([place]) Comment on above: Result Comment: For ED adult patients suspected of sepsis, MDW<=20.0 does not rule out sepsis or risk of sepsis Performed By: #### D RUGU #### Mary [address] [place], [place] [address] .NEUABSon 06-01-2024 Neutrophil, Absolute 6.8 10 3/mcL High 2.9-6.2 [facility] ([place] Comment on above: Performed By: #### D RUGU #### Mary [address] [place], [place] [address] BMPon 06-01-2024 BUN/Creatinine Ratio 10 ratio Normal 7-27 [facility] ([place] Comment on above: Performed By: #### D RUGU #### Mary [address] [place], [place] [address] Calcium [Mass/Vol] 9.5 mg/dL Normal 8.4-10.2 [facility] ([place] Comment on above: Performed By: #### D RUGU #### Mary [address] [place], [place] [address] Chloride [Moles/Vol] 105 mmol/L Normal 98-107 [facility] ([place] Comment on above: Performed By: #### D RUGU #### Mary [address] [place], [place] [address] CO2 [Moles/Vol] 26 mmol/L Normal 22-29 [facility] ([place] Comment on above: Performed By: #### D RUGU #### Mary [address] [place], [place] [address] Creatinine [Mass/Vol] 1.73 mg/dL High 0.70-1.30 [facility] ([place] Comment on above: Performed By: #### D RUGU #### Mary [address] [place], [place] [address] Electrolyte Balance 13.0 mEq/L Normal 4.0-15.0 [facility] ([place] Comment on above: Performed By: #### D RUGU #### Mary [address] [place], [place] [address] Glucose [Mass/Vol] 170 mg/dL High 70-105 [facility] ([place] Comment on above: Performed By: #### D RUGU #### Mary [address] [place], [place] [address] Potassium [Moles/Vol] 3.8 mmol/L Normal 3.5-5.1 [facility] ([place] Comment on above: Performed By: #### D DORENEU #### Mary [address] [place], [place] [address] Sodium [Moles/Vol] 144 mmol/L Normal 136-145 [facility] ([place] Comment on above: Performed By: #### Priscila ORONA #### Mary [address] [place], [place] [address] Urea nitrogen [Mass/Vol] 17 mg/dL Normal 7-18 [facility] ([place] Comment on above: Performed By: #### Priscila ORONA #### Mary [address] [place], [place] [address] CBCon 06-01-2024 Erythrocyte distribution width (RBC) [Ratio] 13.6 % Normal 11.5-14.5 [facility] ([place] Comment on above: Performed By: #### Priscila ORONA #### Mary [address] [place], [place] [address] Hematocrit (Bld) [Volume fraction] 44.9 % Normal 42.0-52.0 [facility] [place] Comment on above: Performed By: #### Priscila ORONA #### Mary [address] [place], [place] [address] Hgb 15.4 G/dL Normal 14.0-18.0 [facility] ([place]) Comment on above: Performed By: #### Priscila ORONA #### Mary [address] [place], [place] [address] MCH (RBC) [Entitic mass] 29.6 pg Normal 27.0-31.2 [facility] ([place] Comment on above: Performed By: #### Priscila ORONA #### Mary [address] [place], [place] [address] MCHC 34.3 G/dL Normal 31.8-35.4 [facility] ([place]) Comment on above: Performed By: #### Priscila ORONA #### Mary [address] [place], [place] [address] MCV (RBC) [Entitic vol] 86.2 fL Normal 80.0-94.0 [facility] ([place] Comment on above: Performed By: #### D RUGU #### Mary [address] [place], [place] [address] Platelet 257 10 3/mcL Normal 130-400 [facility] [place] Comment on above: Performed By: #### D RUGU #### Mary [address] [place], [place] [address] Platelet mean volume (Bld) [Entitic vol] 9.2 fL Normal 7.4-10.4 [facility] [place] Comment on above: Performed By: #### D RUGU #### Mary [address] [place], [place] [address] RBC 5.20 10 6/mcL Normal 4.04-6.13 [facility] ([place] Comment on above: Performed By: #### D RUGU #### Mary [address] [place], [place] [address] WBC 10.7 10 3/mcL Normal 4.6-10.8 [facility] ([place] Comment on above: Performed By: #### D RUGU #### Mary [address] [place], [place] [address] LABORATORYOrdered By: SYSTEM SYSTEM on 06-01-2024 Troponin I.cardiac DL <= 0.01 ng/mL [Mass/Vol] 22 ng/L Normal 0 - 76 ng/L AO ADM SS Comment on above: Interpretive Data: H igh Sensitive Troponin I Reference Ranges: Female: 0-51 ng/L Male: 0-76 ng/L Testing performed on [employer] using a homogeneous sandwich chemiluminescent immunoassay based on [employer] technology. Basophil, Absolute 0.1 103/mcL Normal 0.0 - 0.2 10^3/mcL AO Workflow SS Basophils/100 WBC (Bld) 0.9 % Normal 0.0 - 2.5 % AO Workflow SS Calcium [Mass/Vol] 9.5 mg/dL Normal 8.4 - 10. 2 mg/dL AO ADM SS Chloride [Moles/Vol] 105 mmol/L Normal 98 - 107 mmol/L AO ADM SS CO2 [Moles/Vol] 26 mmol/L Normal 22 - 29 mmol/L AO ADM SS Creatinine [Mass/Vol] 1.73 mg/dL High 0.70 - 1.30 mg/dL AO ADM SS Electrolyte Balance 13.0 mEq/L Normal 4.0 - 15 .0 mEq/L AO ADM SS Eosinophil, Absolute 0.6 103/mcL High 0.0 - 0.4 10^3/mcL AO Workflow SS Eosinophils/100 WBC (Bld) 5.5 % Normal 0.0 - 7.0 % AO Workflow SS Erythrocyte distribution width (RBC) [Ratio] 13.6 % Normal 11.5 - 14.5 % AO Workflow SS GFR/1.73 sq M.predicted among blacks MDRD (S/P/Bld) [Vol rate/Area] 54 ml/min/1.73sqm Invalid Interpretation Code AO Chemistry S Comment on above: Interpretive Data: GFR Population mean for , Non- Americans Ages 20-29 = 116 mL/min/1.73 sq.m. Ages 30-39 = 107 mL/min/1.73 sq.m. Ages 40-49 = 99 mL/min/1.73 sq.m. Ages 50-59 = 93 mL/min/1.73 sq.m. Ages 60-69 = 85 mL/min/1.73 sq.m. Ages 70+ = 75 mL/min/1.73 sq.m. Chronic Kidney Disease: Less than 60 mL/min/1.73 square meters End Stage Renal Disease: Less than 15 mL/min/1.73 square meters GFR/1.73 sq M.predicted among non-blacks MDRD (S/P/Bld) [Vol rate/Area] 45 ml/min/1.73sqm Invalid Interpretation Code AO Chemistry S Comment on above: Interpretive Data: GFR Population mean for , Non- Americans Ages 20-29 = 116 mL/min/1.73 sq.m. Ages 30-39 = 107 mL/min/1.73 sq.m. Ages 40-49 = 99 mL/min/1.73 sq.m. Ages 50-59 = 93 mL/min/1.73 sq.m. Ages 60-69 = 85 mL/min/1.73 sq.m. Ages 70+ = 75 mL/min/1.73 sq.m. Chronic Kidney Disease: Less than 60 mL/min/1.73 square meters End Stage Renal Disease: Less than 15 mL/min/1.73 square meters Glucose [Mass/Vol] 170 mg/dL High 70 - 105 mg/dL AO ADM SS Hematocrit (Bld) [Volume fraction] 44.9 % Normal 42.0 - 52.0 % AO Workflow SS Hemoglobin (Bld) [Mass/Vol] 15.4 G/dL Normal 14.0 - 18.0 G/dL AO Workflow SS Lymphocyte, Absolute 2.4 103/mcL Normal 0.8 - 3.9 10^3/mcL AO Workflow SS Lymphocytes/100 WBC (Bld) 22.7 % Normal 10.0 - 50.0 % AO Workflow SS MCH (RBC) [Entitic mass] 29.6 pg Normal 27.0 - 31.2 pg AO Workflow SS MCHC 34.3 G/dL Normal 31.8 - 35.4 G/dL AO Workflow SS MCV (RBC) [Entitic vol] 86.2 fL Normal 80.0 - 94.0 fL AO Workflow SS Monocyte distribution width Auto (Bld) [Entitic vol] 17.05 1 Normal 0.00 - 20.00 AO Workflow SS Comment on above: Result Comment: For ED adult patients suspected of sepsis, MDW<=20.0 does not rule out sepsis or risk of sepsis Monocyte, Absolute 0.8 103/mcL Normal 0.2 - 1.0 10^3/mcL AO Workflow SS Monocytes/100 WBC (Bld) 7.7 % Normal 1.7 - 13.0 % AO Workflow SS Natriuretic peptide.B prohormone N-Terminal [Mass/Vol] 82 pg/mL Normal 0 - 125 pg/mL AO ADM SS Comment on above: Interpretive Data: N T-proBNP results of less than 300 pg/mL effectively rules out acute congestive heart failure with 99% negative predictive value. Neutrophil, Absolute 6.8 103/mcL High 2.9 - 6.2 10^3/mcL AO Workflow SS Neutrophils/100 WBC (Bld) 63.2 % Normal 37.0 - 80.0 % AO Workflow SS Platelet mean volume (Bld) [Entitic vol] 9.2 fL Normal 7.4 - 10.4 fL AO Workflow SS Platelets (Bld) [#/Vol] 257 103/mcL Normal 130 - 400 10^3/mcL AO Workflow SS Potassium [Moles/Vol] 3.8 mmol/L Normal 3.5 - 5.1 mmol/L AO ADM SS RBC (Bld) [#/Vol] 5.20 106/mcL Normal 4.04 - 6.1 3 10^6/mcL AO Workflow SS Sodium [Moles/Vol] 144 mmol/L Normal 136 - 145 mmol/L AO ADM SS Troponin I.cardiac DL <= 0.01 ng/mL [Mass/Vol] 24 ng/L Normal 0 - 76 ng/L AO ADM SS Comment on above: Interpretive Data: H igh Sensitive Troponin I Reference Ranges: Female: 0-51 ng/L Male: 0-76 ng/L Testing performed on [employer] using a homogeneous sandwich chemiluminescent immunoassay based on [employer] technology. Urea nitrogen [Mass/Vol] 17 mg/dL Normal 7 - 18 mg/dL AO ADM SS Urea nitrogen/Creatinine [Mass ratio] 10 ratio Normal 7 - 27 ratio AO ADM SS WBC (Bld) [#/Vol] 10.7 103/mcL Normal 4.6 - 10.8 10^3/mcL AO Workflow SS PBNPon 06-01-2024 Natriuretic peptide B (Bld) [Mass/Vol] 82 pg/mL Normal 0-125 [facility] ([place] Comment on above: Result Comment: NT-p roBNP results of less than 300 pg/mL effectively rules out acute congestive heart failure with 99% negative predictive value. Performed By: #### P BNP #### [address] [address] [facility] 06-01-2024 High Sensitivity Troponin I 22 ng/L Normal 0-76 [facility] ([place] Comment on above: Result Comment: High Sensitive Troponin I Reference Ranges: Female: 0-51 ng/L Male: 0-76 ng/L Testing performed on [employer] using a homogeneous sandwich chemiluminescent immunoassay based on [employer] technology. Performed By: #### A PTT #### [facility] [address] [place], [place] [address] High Sensitivity Troponin I 24 ng/L Normal 0-76 [facility] ([place] Comment on above: Result Comment: High Sensitive Troponin I Reference Ranges: Female: 0-51 ng/L Male: 0-76 ng/L Testing performed on [employer] using a homogeneous sandwich chemiluminescent immunoassay based on [employer] technology. Performed By: #### D ADWOA #### Mary [address] [place], [place] [address] XR CHEST 1 VIEWon 06-01-2024 XR CHEST 1 VIEW ORIGINAL EXAMINATION: ONE XRAY VIEW OF THE CHEST 06/01/2024 3:38 pm COMPARISON: 07/16/2023 HISTORY: ORDERING SYSTEM PROVIDED HISTORY: Reason for Exam: chest pain FINDINGS: The cardiomediastinal silhouette is unchanged. There is no focal consolidation, significant pleural effusion, vascular congestion, or pneumothorax. Monitoring leads overlie the image. Examination is compromised by portable technique and patient body habitus. IMPRESSION: No acute radiographic findings. Interpreted by: Lina Jain MD Preliminary Report By: Lina Jain MD Electronically signed By Lina Jain MD Dictated Date: 06/01/2024 4:01:55 PM Prelim Date: 06/01/2024 4:02:35 PM Sign Date: 06/01/2024 4:02:35 PM Ordering Provider: MIKA Marquez [facility] ([place]) TFTESTon 04-18-2024 Free Testost Direct 4.7 pg/mL Low 8.7-25.1 [facility] ([place]) Comment on above: Result Comment: Perf ormed At: [facility] [address] [id number] Jay Oliveira MD Ph:[phone] Performed At: [facility] [address] [place], [place] [id number] Michelle Tang PhD Ph:[phone] Performed By: #### D DORENEU #### Mary [address] [place], [place] [address] Testosterone Lvl 131 ng/dL Low 264-916 [facility] ([place]) Comment on above: Result Comment: Adul t male reference interval is based on a population of healthy nonobese males (BMI <30) between 19 and 39 years old. meghan Pettit.al. JCEM 2017,102;9047-6024. PMID: [id number]. Performed By: #### D RUGU #### Mary [address] [place], [place] [address] FSHon 04-12-2024 FSH 4.5 mIU/mL Normal 1.4-18.1 [facility] ([place] Comment on above: Result Comment: Adul t Female FSH Reference Ranges (10/03/99): Follicular phase 2.5 - 10.2 mIU/mL Midcycle phase 3.4 - 33.4 mIU/mL Luteal phase 1.5 - 9.1 mIU/mL Post menopausal 23.0 -116.3 mIU/mL Adult Male: 1.4 - 18.1 mIU/mL Performed By: #### D RUGU #### Mary [address] [place], [place] [address] LABORATORYOrdered By: SYSTEM SYSTEM on 04-12-2024 Follitropin Qn 4.5 m[IU]/mL Normal 1.4 - 18.1 mIU/mL ADM Comment on above: Interpretive Data: A dult Female FSH Reference Ranges (10/03/99): Follicular phase 2.5 - 10.2 mIU/mL Midcycle phase 3.4 - 33.4 mIU/mL Luteal phase 1.5 - 9.1 mIU/mL Post menopausal 23.0 -116.3 mIU/mL Adult Male: 1.4 - 18.1 mIU/mL Lutropin Qn 6.4 m[IU]/mL Normal 1.5 - 9.3 mIU/mL ADM SS Comment on above: Interpretive Data: * *Note - New Reference Range in effect 20 Adult Female LH Reference Ranges: Follicular phase 1.9 - 12.5 mIU/mL Midcycle phase 8.7 - 76.3 mIU/mL Luteal phase 0.5 - 16.9 mIU/mL Post menopausal 5.0 - 55.2 mIU/mL LHon 04-12-2024 LH 6.4 mIU/mL Normal 1.5-9.3 [facility] ([place]) Comment on above: Result Comment: No te - New Reference Range in effect 20 Adult Female LH Reference Ranges: Follicular phase 1.9 - 12.5 mIU/mL Midcycle phase 8.7 - 76.3 mIU/mL Luteal phase 0.5 - 16.9 mIU/mL Post menopausal 5.0 - 55.2 mIU/mL Performed By: #### D DORENEU #### Mary [address] [place], [place] [address] TFTESTon 03-27-2024 Free Testost Direct 4.1 pg/mL Low 8.7-25.1 [facility] ([place] Comment on above: Result Comment: Perf ormed At: [facility] [place] [address] [place], [place] [id number] Jay Oilveira MD Ph:[phone] Performed At: [facility] [address] [place], [place] [id number] Michelle Tang PhD Ph:[phone] Performed By: #### H H #### [place] [address] Testosterone Lvl 126 ng/dL Low 264-916 [facility] ([place] Comment on above: Result Comment: Adul t male reference interval is based on a population of healthy nonobese males (BMI <30) between 19 and 39 years old. Hodan, et.al. JCEM 2017,102;2796-4637. PMID: [id number]. Performed By: #### H H #### [place] [address] A1Con 03-20-2024 HbA1c (Bld) [Mass fraction] 6.2 % Normal 4.3-6.4 [facility] ([place] Comment on above: Performed By: #### H H #### [place] [address] FT4on 03-20-2024 Free T4 [Mass/Vol] 1.04 ng/dL Normal 0.76-1.46 [facility] ([place] Comment on above: Performed By: #### H H #### [place] [address] HCVon 03-20-2024 Hep C Ab Non-Reactive Normal Non-Reactive [facility] ([place] Comment on above: Performed By: #### H H #### [place] [address] Hep C Ab Int Normal [facility]) Comment on above: Result Comment: Nonr eactive: Samples with a value < 0.80 are considered nonreactive (negative) for antibodies to HCV. A negative test result does not exclude the possibility of exposure to or infection with HCV. HCV antibodies may be undetectable in some stages of the infection and in some clinical conditions. See Interp Performed By: #### H H #### [place] [address] HIVRPon 03-20-2024 HIV p24 Antigen Non-Reactive Normal Non-Reactive [facility] ([place] Comment on above: Result Comment: Dete ction of p24 may be inhibited by biotin in the sample, causing false negative results in acute infection. Therefore do not test samples from patients who are taking biotin. Performed By: #### T ANGELI #### [place] [address] HIV P24 Int Non-Reactive Invalid Interpretation Code [facility] ([place] Comment on above: Performed By: #### T ANGELI #### [place] [address] Rapid HIV 1/2 Antibody Non-Reactive Normal Non-Reactive [facility]) Comment on above: Performed By: #### T ANGELI #### [place] [address] RHIV 1/2 Ab Int Non-Reactive Invalid Interpretation Code [facility]) Comment on above: Performed By: #### T ANGELI #### [place] [address] LABORATORYOrdered By: Sherrell Olivera on 03-20-2024 Amphetamines Screen Ql (U) Positive *ABN* (03/20/24 10:03 AM) Invalid Interpretation Code Negative AO ADM SS Barbiturates Screen Ql (U) Negative *NA* (03/20/24 10:03 AM) Invalid Interpretation Code Negative AO ADM SS Benzodiazepines Ql (U) Negative *NA* (03/20/24 10:03 AM) Invalid Interpretation Code Negative AO ADM SS Benzoylecgonine Screen Ql (U) Negative *NA* (03/20/24 10:03 AM) Invalid Interpretation Code Negative AO ADM SS Cannabinoids Screen Ql (U) Negative *NA* (03/20/24 10:03 AM) Invalid Interpretation Code Negative AO ADM SS Methadone Screen Ql (U) Negative *NA* (03/20/24 10:03 AM) Invalid Interpretation Code Negative AO ADM SS Opiates Screen Ql (U) Negative *NA* (03/20/24 10:03 AM) Invalid Interpretation Code Negative AO ADM SS Phencyclidine Ql (U) Negative *NA* (03/20/24 10:03 AM) Invalid Interpretation Code Negative AO ADM SS Urine Drugs screened: See Below 2 (03/20/24 10:03 AM) Normal AO Chemistry S Comment on above: Interpretive Data: T his drug screen is a presumptive screening only. No confirmation will be performed unless requested. Drugs screened include: Threshold Amphetamines/Methamphetamines 1,000 ng/mL Barbiturates 200 ng/mL Benzodiazepine metabolites 200 ng/mL Cannabinoids (THC metabolites) 50 ng/mL Cocaine 300 ng/mL Opiates 300 ng/mL Methadone 300 ng/mL Phencyclidine (PCP) 25 ng/mL Testing has been performed FOR MEDICAL PURPOSES ONLY. HIV 1 p24 Ab Ql (S) Non-Reactive 3 (03/20/24 9:55 AM) Normal Non-Reactive AO Rapid Testing SS Comment on above: Interpretive Data: D etection of p24 may be inhibited by biotin in the sample, causing false negative results in acute infection. Therefore do not test samples from patients who are taking biotin. HIV 1 p24 Ab Ql (S) Non-Reactive Invalid Interpretation Code AO Rapid Testing SS HIV 1+2 Ab IA Ql Non-Reactive Invalid Interpretation Code AO Rapid Testing SS HIV 1+2 Ab IA.rapid Ql (Unsp spec) Non-Reactive (03/20/24 9:55 AM) Normal Non-Reactive AO Rapid Testing SS LABORATORYOrdered By: SYSTEM SYSTEM on 03-20-2024 25-hydroxyvitamin D3 [Mass/Vol] 15.6 ng/mL Invalid Interpretation Code AO ADM SS Comment on above: Interpretive Data: I nterpretive Values Based on Total 25(OH) Vitamin D: Deficient <20 ng/mL Insufficient 20 - <30 ng/mL Sufficient 30-100 ng/mL Free T4 [Mass/Vol] 1.04 ng/dL Normal 0.76 - 1. 46 ng/dL AO ADM SS HbA1c (Bld) [Mass fraction] 6.2 % Normal 4.3 - 6.4 % AO ADM SS TSH Qn 0.91 m[IU]/L Normal 0.36 - 3.74 mcIU/mL AO ADM SS LABORATORYOrdered By: Seema Salter on 03-20-2024 HCV Ab IA Ql Non-Reactive (03/20/24 9:50 AM) Normal Non-Reactive AH ADM SS HCV Ab IA Ql Nonreactive: Samples with a value < 0.80 are considered nonreactive (negative) for antibodies to HCV.A negative test result does not exclude the possibility of exposure to or infection with HCV. HCV antibodies may be undetectable in some stages of the infection and in some clinical conditions. Invalid Interpretation Code Chemistry S TSHon 03-20-2024 TSH Qn 0.91 m[IU]/L Normal 0.36-3.74 [facility] ([place]) Comment on above: Performed By: #### H H #### [place] [address] UDRUGon 03-20-2024 Amphetamine (u) Positive Abnormal Negative [facility] ([place]) Comment on above: Performed By: #### Priscila RUGU #### Mray Camden [address] [place], [place] [address] Barbiturate (u) Negative Normal Negative [facility] ([place]) Comment on above: Performed By: #### Priscila RUGU #### Mary Camden [address] [place], [place] [address] Benzodiazepine (u) Negative Normal Negative [facility] ([place]) Comment on above: Performed By: #### Priscila RUGU #### Mary [address] [place], [place] [address] Cannabinoid (u) Negative Normal Negative [facility] ([place] Comment on above: Performed By: #### D RUGU #### Mary Camden [address] [place], [place] [address] Cocaine Ql (U) Negative Normal Negative [facility] ([place] Comment on above: Performed By: #### Priscila RUGU #### Mary [address] [place], [place] [address] Methadone Ql (U) Negative Normal Negative [facility] ([place] Comment on above: Performed By: #### D RUGU #### Mary [address] [place], [place] [address] Opiate (u) Negative Normal Negative [facility] ([place] Comment on above: Performed By: #### D RUGU #### Mary [address] [place], [place] [address] PCP (u) Negative Normal Negative [facility] ([place] Comment on above: Performed By: #### D RUGU #### Mary [address] [place], [place] [address] Urine Drugs screened: See Below Normal [facility] ([place] Comment on above: Result Comment: This drug screen is a presumptive screening only. No confirmation will be performed unless requested. Drugs screened include: Threshold Amphetamines/Methamphetamines 1,000 ng/mL Barbiturates 200 ng/mL Benzodiazepine metabolites 200 ng/mL Cannabinoids (THC metabolites) 50 ng/mL Cocaine 300 ng/mL Opiates 300 ng/mL Methadone 300 ng/mL Phencyclidine (PCP) 25 ng/mL Testing has been performed FOR MEDICAL PURPOSES ONLY. Performed By: #### D RUGU #### Mary Chamber[address] [place], [place] [address] VIDHon 03-20-2024 Vit. D 25-Hydroxy 15.6 ng/mL Normal [facility] ([place]) Comment on above: Result Comment: Inte rpretive Values Based on Total 25(OH) Vitamin D: Deficient <20 ng/mL Insufficient 20 - <30 ng/mL Sufficient 30-100 ng/mL Performed By: #### H H #### [address] [address] .GFRon 12-02-2023 GFR 84 ml/min/1.73sqm Normal [facility] ([place]) Comment on above: Result Comment: GFR Population mean for , Non- Americans Ages 20-29 = 116 mL/min/1.73 sq.m. Ages 30-39 = 107 mL/min/1.73 sq.m. Ages 40-49 = 99 mL/min/1.73 sq.m. Ages 50-59 = 93 mL/min/1.73 sq.m. Ages 60-69 = 85 mL/min/1.73 sq.m. Ages 70+ = 75 mL/min/1.73 sq.m. Chronic Kidney Disease: Less than 60 mL/min/1.73 square meters End Stage Renal Disease: Less than 15 mL/min/1.73 square meters Performed By: #### P BNP, BMP, GFR ####[id number] [place], [place] [address] GFR Non- 69 ml/min/1.73sqm Normal [facility] ([place] Comment on above: Result Comment: GFR Population mean for , Non- Americans Ages 20-29 = 116 mL/min/1.73 sq.m. Ages 30-39 = 107 mL/min/1.73 sq.m. Ages 40-49 = 99 mL/min/1.73 sq.m. Ages 50-59 = 93 mL/min/1.73 sq.m. Ages 60-69 = 85 mL/min/1.73 sq.m. Ages 70+ = 75 mL/min/1.73 sq.m. Chronic Kidney Disease: Less than 60 mL/min/1.73 square meters End Stage Renal Disease: Less than 15 mL/min/1.73 square meters Performed By: #### P BNP, BMP, GFR ####[id number] [place], [place] [address] BMPon 12-02-2023 BUN/Creatinine Ratio 11 ratio Normal 7-27 [facility] ([place] Comment on above: Performed By: #### T DANNI #### [address] [address] Calcium [Mass/Vol] 8.9 mg/dL Normal 8.4-10.2 [facility] ([place] Comment on above: Performed By: #### T ANGELI #### [address] [address] Chloride [Moles/Vol] 105 mmol/L Normal 98-107 [facility] ([place] Comment on above: Performed By: #### T ANGELI #### [place] [id number] CO2 [Moles/Vol] 26 mmol/L Normal 22-29 [facility] ([place] Comment on above: Performed By: #### T ANGELI #### [place] [id number] Creatinine [Mass/Vol] 1.18 mg/dL Normal 0.70-1.30 [facility] ([place] Comment on above: Performed By: #### T ANGELI #### [place] [address] Electrolyte Balance 11.0 mEq/L Normal 4.0-15.0 [facility] ([place] Comment on above: Performed By: #### T ANGELI #### [place] [address] Glucose [Mass/Vol] 86 mg/dL Normal 70-105 [facility] [place] ([place] Comment on above: Performed By: #### T ANGELI #### [place] [address] Potassium [Moles/Vol] 4.8 mmol/L Normal 3.5-5.1 [facility] ([place]) Comment on above: Performed By: #### T ANGELI #### [place] [address] Sodium [Moles/Vol] 142 mmol/L Normal 136-145 [facility] [place] ([place]) Comment on above: Performed By: #### T ANGELI #### [place] [address] Urea nitrogen [Mass/Vol] 13 mg/dL Normal 7-18 [facility] ([place]) Comment on above: Performed By: #### T ANGELI #### [place] [id number] LABORATORYOrdered By: SYSTEM SYSTEM on 12-02-2023 Calcium [Mass/Vol] 8.9 mg/dL Normal 8.4 - 10. 2 mg/dL AO ADM SS Chloride [Moles/Vol] 105 mmol/L Normal 98 - 107 mmol/L AO ADM SS CO2 [Moles/Vol] 26 mmol/L Normal 22 - 29 mmol/L AO ADM SS Creatinine [Mass/Vol] 1.18 mg/dL Normal 0.70 - 1.30 mg/dL AO ADM SS Electrolyte Balance 11.0 mEq/L Normal 4.0 - 15 .0 mEq/L AO ADM SS GFR/1.73 sq M.predicted among blacks MDRD (S/P/Bld) [Vol rate/Area] 84 ml/min/1.73sqm Invalid Interpretation Code AO Chemistry S Comment on above: Interpretive Data: GFR Population mean for , Non- Americans Ages 20-29 = 116 mL/min/1.73 sq.m. Ages 30-39 = 107 mL/min/1.73 sq.m. Ages 40-49 = 99 mL/min/1.73 sq.m. Ages 50-59 = 93 mL/min/1.73 sq.m. Ages 60-69 = 85 mL/min/1.73 sq.m. Ages 70+ = 75 mL/min/1.73 sq.m. Chronic Kidney Disease: Less than 60 mL/min/1.73 square meters End Stage Renal Disease: Less than 15 mL/min/1.73 square meters GFR/1.73 sq M.predicted among non-blacks MDRD (S/P/Bld) [Vol rate/Area] 69 ml/min/1.73sqm Invalid Interpretation Code AO Chemistry S Comment on above: Interpretive Data: GFR Population mean for , Non- Americans Ages 20-29 = 116 mL/min/1.73 sq.m. Ages 30-39 = 107 mL/min/1.73 sq.m. Ages 40-49 = 99 mL/min/1.73 sq.m. Ages 50-59 = 93 mL/min/1.73 sq.m. Ages 60-69 = 85 mL/min/1.73 sq.m. Ages 70+ = 75 mL/min/1.73 sq.m. Chronic Kidney Disease: Less than 60 mL/min/1.73 square meters End Stage Renal Disease: Less than 15 mL/min/1.73 square meters Glucose [Mass/Vol] 86 mg/dL Normal 70 - 105 mg/dL AO ADM SS Natriuretic peptide.B prohormone N-Terminal [Mass/Vol] 76 pg/mL Normal 0 - 125 pg/mL AO ADM SS Comment on above: Interpretive Data: N T-proBNP results of less than 300 pg/mL effectively rules out acute congestive heart failure with 99% negative predictive value. Potassium [Moles/Vol] 4.8 mmol/L Normal 3.5 - 5.1 mmol/L AO ADM SS Sodium [Moles/Vol] 142 mmol/L Normal 136 - 145 mmol/L AO ADM SS Urea nitrogen [Mass/Vol] 13 mg/dL Normal 7 - 18 mg/dL AO ADM SS Urea nitrogen/Creatinine [Mass ratio] 11 ratio Normal 7 - 27 ratio AO ADM SS PBNPon 12-02-2023 Natriuretic peptide B (Bld) [Mass/Vol] 76 pg/mL Normal 0-125 [facility] ([place]) Comment on above: Result Comment: NT-p roBNP results of less than 300 pg/mL effectively rules out acute congestive heart failure with 99% negative predictive value. Performed By: #### P BNP, BMP, GFR ####Mary [address] [address] .GFRon 11-06-2023 GFR 62 ml/min/1.73sqm Normal [facility] ([place]) Comment on above: Result Comment: GFR Population mean for , Non- Americans Ages 20-29 = 116 mL/min/1.73 sq.m. Ages 30-39 = 107 mL/min/1.73 sq.m. Ages 40-49 = 99 mL/min/1.73 sq.m. Ages 50-59 = 93 mL/min/1.73 sq.m. Ages 60-69 = 85 mL/min/1.73 sq.m. Ages 70+ = 75 mL/min/1.73 sq.m. Chronic Kidney Disease: Less than 60 mL/min/1.73 square meters End Stage Renal Disease: Less than 15 mL/min/1.73 square meters Performed By: #### T [facility] #### [address] [address] GFR Non- 51 ml/min/1.73sqm Normal [facility] ([place]) Comment on above: Result Comment: GFR Population mean for , Non- Americans Ages 20-29 = 116 mL/min/1.73 sq.m. Ages 30-39 = 107 mL/min/1.73 sq.m. Ages 40-49 = 99 mL/min/1.73 sq.m. Ages 50-59 = 93 mL/min/1.73 sq.m. Ages 60-69 = 85 mL/min/1.73 sq.m. Ages 70+ = 75 mL/min/1.73 sq.m. Chronic Kidney Disease: Less than 60 mL/min/1.73 square meters End Stage Renal Disease: Less than 15 mL/min/1.73 square meters Performed By: #### T ANGELI #### [address] [address] [facility] 11-06-2023 BUN/Creatinine Ratio 17 ratio Normal 7-27 [facility] ([place] Comment on above: Performed By: #### T ANGELI #### [address] [address] Calcium [Mass/Vol] 8.8 mg/dL Normal 8.4-10.2 [facility] [place] ([place]) Comment on above: Performed By: #### T ANGELI #### [address] [address] Chloride [Moles/Vol] 105 mmol/L Normal 98-107 [facility] ([place] Comment on above: Performed By: #### T ANGELI #### [address] [address] CO2 [Moles/Vol] 22 mmol/L Normal 22-29 [facility] ([place] Comment on above: Performed By: #### T ANGELI #### [address] [address] Creatinine [Mass/Vol] 1.53 mg/dL High 0.70-1.30 [facility] ([place] Comment on above: Performed By: #### T ANGELI #### [address] [address] Electrolyte Balance 14.0 mEq/L Normal 4.0-15.0 [facility] ([place]) Comment on above: Performed By: #### T ANGELI #### [address] [address] Glucose [Mass/Vol] 153 mg/dL High 70-105 [facility] [place] ([place]) Comment on above: Performed By: #### T ANGELI #### [address] [address] Potassium [Moles/Vol] 4.1 mmol/L Normal 3.5-5.1 [facility] ([place] Comment on above: Performed By: #### T ANGELI #### [address] [address] Sodium [Moles/Vol] 141 mmol/L Normal 136-145 [facility] [place] ([place] Comment on above: Performed By: #### T ANGELI #### [address] [address] Urea nitrogen [Mass/Vol] 26 mg/dL High 7-18 [facility] ([place] Comment on above: Performed By: #### T ANGELI #### [address] [address] LABORATORYOrdered By: SYSTEM SYSTEM on 11-06-2023 Calcium [Mass/Vol] 8.8 mg/dL Normal 8.4 - 10. 2 mg/dL AO ADM SS Chloride [Moles/Vol] 105 mmol/L Normal 98 - 107 mmol/L AO ADM SS CO2 [Moles/Vol] 22 mmol/L Normal 22 - 29 mmol/L AO ADM SS Creatinine [Mass/Vol] 1.53 mg/dL High 0.70 - 1.30 mg/dL AO ADM SS Electrolyte Balance 14.0 mEq/L Normal 4.0 - 15 .0 mEq/L AO ADM SS GFR/1.73 sq M.predicted among blacks MDRD (S/P/Bld) [Vol rate/Area] 62 ml/min/1.73sqm Invalid Interpretation Code AO Chemistry S Comment on above: Interpretive Data: GFR Population mean for , Non- Americans Ages 20-29 = 116 mL/min/1.73 sq.m. Ages 30-39 = 107 mL/min/1.73 sq.m. Ages 40-49 = 99 mL/min/1.73 sq.m. Ages 50-59 = 93 mL/min/1.73 sq.m. Ages 60-69 = 85 mL/min/1.73 sq.m. Ages 70+ = 75 mL/min/1.73 sq.m. Chronic Kidney Disease: Less than 60 mL/min/1.73 square meters End Stage Renal Disease: Less than 15 mL/min/1.73 square meters GFR/1.73 sq M.predicted among non-blacks MDRD (S/P/Bld) [Vol rate/Area] 51 ml/min/1.73sqm Invalid Interpretation Code AO Chemistry S Comment on above: Interpretive Data: GFR Population mean for , Non- Americans Ages 20-29 = 116 mL/min/1.73 sq.m. Ages 30-39 = 107 mL/min/1.73 sq.m. Ages 40-49 = 99 mL/min/1.73 sq.m. Ages 50-59 = 93 mL/min/1.73 sq.m. Ages 60-69 = 85 mL/min/1.73 sq.m. Ages 70+ = 75 mL/min/1.73 sq.m. Chronic Kidney Disease: Less than 60 mL/min/1.73 square meters End Stage Renal Disease: Less than 15 mL/min/1.73 square meters Glucose [Mass/Vol] 153 mg/dL High 70 - 105 mg/dL AO ADM SS Potassium [Moles/Vol] 4.1 mmol/L Normal 3.5 - 5.1 mmol/L AO ADM SS Sodium [Moles/Vol] 141 mmol/L Normal 136 - 145 mmol/L AO ADM SS Urea nitrogen [Mass/Vol] 26 mg/dL High 7 - 18 mg/dL AO ADM SS Urea nitrogen/Creatinine [Mass ratio] 17 ratio Normal 7 - 27 ratio AO ADM SS .GFRon 09-22-2023 GFR 72 ml/min/1.73sqm Normal [facility] ([place]) Comment on above: Result Comment: GFR Population mean for , Non- Americans Ages 20-29 = 116 mL/min/1.73 sq.m. Ages 30-39 = 107 mL/min/1.73 sq.m. Ages 40-49 = 99 mL/min/1.73 sq.m. Ages 50-59 = 93 mL/min/1.73 sq.m. Ages 60-69 = 85 mL/min/1.73 sq.m. Ages 70+ = 75 mL/min/1.73 sq.m. Chronic Kidney Disease: Less than 60 mL/min/1.73 square meters End Stage Renal Disease: Less than 15 mL/min/1.73 square meters Performed By: #### T ANGELI #### [address] [address] GFR Non- 59 ml/min/1.73sqm Normal [facility] ([place] Comment on above: Result Comment: GFR Population mean for , Non- Americans Ages 20-29 = 116 mL/min/1.73 sq.m. Ages 30-39 = 107 mL/min/1.73 sq.m. Ages 40-49 = 99 mL/min/1.73 sq.m. Ages 50-59 = 93 mL/min/1.73 sq.m. Ages 60-69 = 85 mL/min/1.73 sq.m. Ages 70+ = 75 mL/min/1.73 sq.m. Chronic Kidney Disease: Less than 60 mL/min/1.73 square meters End Stage Renal Disease: Less than 15 mL/min/1.73 square meters Performed By: #### T ANGELI #### [address] [address] [facility] 09-22-2023 BUN/Creatinine Ratio 10 ratio Normal 7-27 [facility] ([place] Comment on above: Performed By: #### T ANGELI #### [address] [address] Calcium [Mass/Vol] 8.5 mg/dL Normal 8.4-10.2 [facility] [place] ([place] Comment on above: Performed By: #### T ANGELI #### [address] [address] Chloride [Moles/Vol] 102 mmol/L Normal 98-107 [facility] ([place] Comment on above: Performed By: #### T ANGELI #### [address] [address] CO2 [Moles/Vol] 27 mmol/L Normal 22-29 [facility] ([place] Comment on above: Performed By: #### T ANGELI #### [address] [address] Creatinine [Mass/Vol] 1.36 mg/dL High 0.70-1.30 [facility] ([place] Comment on above: Performed By: #### T ANGELI #### [address] [address] Electrolyte Balance 10.0 mEq/L Normal 4.0-15.0 [facility] ([place] Comment on above: Performed By: #### T ANGELI #### [address] [address] Glucose [Mass/Vol] 125 mg/dL High 70-105 [facility] [place] ([place] Comment on above: Performed By: #### T ANGELI #### [place] [address] Potassium [Moles/Vol] 4.2 mmol/L Normal 3.5-5.1 [facility] ([place] Comment on above: Performed By: #### T ANGELI #### [place] [id number] Sodium [Moles/Vol] 139 mmol/L Normal 136-145 [facility] [place] ([place] Comment on above: Performed By: #### T ANGELI #### [address] [address] Urea nitrogen [Mass/Vol] 14 mg/dL Normal 7-18 [facility] ([place] Comment on above: Performed By: #### T ANGELI #### [address] [address] LABORATORYOrdered By: SYSTEM SYSTEM on 09-22-2023 Calcium [Mass/Vol] 8.5 mg/dL Invalid Interpretation Code 8.4 - 10.2 mg/dL AO ADM SS Chloride [Moles/Vol] 102 mmol/L Invalid Interpretation Code 98 - 107 mmol/L AO ADM SS CO2 [Moles/Vol] 27 mmol/L Invalid Interpretation Code 22 - 29 mmol/L AO ADM SS Creatinine [Mass/Vol] 1.36 mg/dL Invalid Interpretation Code 0.70 - 1.30 mg/dL AO ADM SS Electrolyte Balance 10.0 mEq/L Invalid Interpretation Code 4.0 - 15.0 mEq/L AO ADM SS GFR/1.73 sq M.predicted among blacks MDRD (S/P/Bld) [Vol rate/Area] 72 ml/min/1.73sqm Invalid Interpretation Code AO Chemistry S Comment on above: Interpretive Data: GFR Population mean for , Non- Americans Ages 20-29 = 116 mL/min/1.73 sq.m. Ages 30-39 = 107 mL/min/1.73 sq.m. Ages 40-49 = 99 mL/min/1.73 sq.m. Ages 50-59 = 93 mL/min/1.73 sq.m. Ages 60-69 = 85 mL/min/1.73 sq.m. Ages 70+ = 75 mL/min/1.73 sq.m. Chronic Kidney Disease: Less than 60 mL/min/1.73 square meters End Stage Renal Disease: Less than 15 mL/min/1.73 square meters GFR/1.73 sq M.predicted among non-blacks MDRD (S/P/Bld) [Vol rate/Area] 59 ml/min/1.73sqm Invalid Interpretation Code AO Chemistry S Comment on above: Interpretive Data: GFR Population mean for , Non- Americans Ages 20-29 = 116 mL/min/1.73 sq.m. Ages 30-39 = 107 mL/min/1.73 sq.m. Ages 40-49 = 99 mL/min/1.73 sq.m. Ages 50-59 = 93 mL/min/1.73 sq.m. Ages 60-69 = 85 mL/min/1.73 sq.m. Ages 70+ = 75 mL/min/1.73 sq.m. Chronic Kidney Disease: Less than 60 mL/min/1.73 square meters End Stage Renal Disease: Less than 15 mL/min/1.73 square meters Glucose [Mass/Vol] 125 mg/dL Invalid Interpretation Code 70 - 105 mg/dL AO ADM SS Potassium [Moles/Vol] 4.2 mmol/L Invalid Interpretation Code 3.5 - 5.1 mmol/L AO ADM SS Sodium [Moles/Vol] 139 mmol/L Invalid Interpretation Code 136 - 145 mmol/L AO ADM SS Urea nitrogen [Mass/Vol] 14 mg/dL Invalid Interpretation Code 7 - 18 mg/dL AO ADM SS Urea nitrogen/Creatinine [Mass ratio] 10 ratio Invalid Interpretation Code ratio AO ADM SS .GFRon 08-29-2023 GFR 76 ml/min/1.73sqm Normal [facility] ([place]) Comment on above: Result Comment: GFR Population mean for , Non- Americans Ages 20-29 = 116 mL/min/1.73 sq.m. Ages 30-39 = 107 mL/min/1.73 sq.m. Ages 40-49 = 99 mL/min/1.73 sq.m. Ages 50-59 = 93 mL/min/1.73 sq.m. Ages 60-69 = 85 mL/min/1.73 sq.m. Ages 70+ = 75 mL/min/1.73 sq.m. Chronic Kidney Disease: Less than 60 mL/min/1.73 square meters End Stage Renal Disease: Less than 15 mL/min/1.73 square meters Performed By: #### H H #### [address] [address] GFR Non- 63 ml/min/1.73sqm Normal [facility] ([place] Comment on above: Result Comment: GFR Population mean for , Non- Americans Ages 20-29 = 116 mL/min/1.73 sq.m. Ages 30-39 = 107 mL/min/1.73 sq.m. Ages 40-49 = 99 mL/min/1.73 sq.m. Ages 50-59 = 93 mL/min/1.73 sq.m. Ages 60-69 = 85 mL/min/1.73 sq.m. Ages 70+ = 75 mL/min/1.73 sq.m. Chronic Kidney Disease: Less than 60 mL/min/1.73 square meters End Stage Renal Disease: Less than 15 mL/min/1.73 square meters Performed By: #### H H #### [address] [address] BMPon 08-29-2023 BUN/Creatinine Ratio 9 ratio Normal 7- [facility] ([place]) Comment on above: Performed By: #### H H #### [address] [address] Calcium [Mass/Vol] 9.1 mg/dL Normal 8.4-10.2 [facility] [place] ([place] Comment on above: Performed By: #### H H #### [address] [address] Chloride [Moles/Vol] 102 mmol/L Normal 98-107 [facility] ([place] Comment on above: Performed By: #### H H #### [address] [address] CO2 [Moles/Vol] 25 mmol/L Normal 22-29 [facility] ([place] Comment on above: Performed By: #### H H #### [address] [address] Creatinine [Mass/Vol] 1.29 mg/dL Normal 0.70-1.30 [facility] ([place] Comment on above: Performed By: #### H H #### [address] [address] Electrolyte Balance 14.0 mEq/L Normal 4.0-15.0 [facility] ([place] Comment on above: Performed By: #### H H #### [address] [address] Glucose [Mass/Vol] 107 mg/dL High 70-105 [facility] [place] ([place] Comment on above: Performed By: #### H H #### [address] [address] Potassium [Moles/Vol] 4.2 mmol/L Normal 3.5-5.1 [facility] ([place] Comment on above: Performed By: #### H H #### [address] [address] Sodium [Moles/Vol] 141 mmol/L Normal 136-145 [facility] [place] ([place] Comment on above: Performed By: #### H H #### [address] [address] Urea nitrogen [Mass/Vol] 12 mg/dL Normal 7-18 [facility] ([place] Comment on above: Performed By: #### H H #### [facility] [address] [place] [address] LABORATORYOrdered By: SYSTEM SYSTEM on 08-29-2023 Calcium [Mass/Vol] 9.1 mg/dL Invalid Interpretation Code 8.4 - 10.2 mg/dL AO ADM SS Chloride [Moles/Vol] 102 mmol/L Invalid Interpretation Code 98 - 107 mmol/L AO ADM SS CO2 [Moles/Vol] 25 mmol/L Invalid Interpretation Code 22 - 29 mmol/L AO ADM SS Creatinine [Mass/Vol] 1.29 mg/dL Invalid Interpretation Code 0.70 - 1.30 mg/dL AO ADM SS Electrolyte Balance 14.0 mEq/L Invalid Interpretation Code 4.0 - 15.0 mEq/L AO ADM SS GFR/1.73 sq M.predicted among blacks MDRD (S/P/Bld) [Vol rate/Area] 76 ml/min/1.73sqm Invalid Interpretation Code AO Chemistry S Comment on above: Interpretive Data: GFR Population mean for , Non- Americans Ages 20-29 = 116 mL/min/1.73 sq.m. Ages 30-39 = 107 mL/min/1.73 sq.m. Ages 40-49 = 99 mL/min/1.73 sq.m. Ages 50-59 = 93 mL/min/1.73 sq.m. Ages 60-69 = 85 mL/min/1.73 sq.m. Ages 70+ = 75 mL/min/1.73 sq.m. Chronic Kidney Disease: Less than 60 mL/min/1.73 square meters End Stage Renal Disease: Less than 15 mL/min/1.73 square meters GFR/1.73 sq M.predicted among non-blacks MDRD (S/P/Bld) [Vol rate/Area] 63 ml/min/1.73sqm Invalid Interpretation Code AO Chemistry S Comment on above: Interpretive Data: GFR Population mean for , Non- Americans Ages 20-29 = 116 mL/min/1.73 sq.m. Ages 30-39 = 107 mL/min/1.73 sq.m. Ages 40-49 = 99 mL/min/1.73 sq.m. Ages 50-59 = 93 mL/min/1.73 sq.m. Ages 60-69 = 85 mL/min/1.73 sq.m. Ages 70+ = 75 mL/min/1.73 sq.m. Chronic Kidney Disease: Less than 60 mL/min/1.73 square meters End Stage Renal Disease: Less than 15 mL/min/1.73 square meters Glucose [Mass/Vol] 107 mg/dL Invalid Interpretation Code 70 - 105 mg/dL AO ADM SS Potassium [Moles/Vol] 4.2 mmol/L Invalid Interpretation Code 3.5 - 5.1 mmol/L AO ADM SS Sodium [Moles/Vol] 141 mmol/L Invalid Interpretation Code 136 - 145 mmol/L AO ADM SS Urea nitrogen [Mass/Vol] 12 mg/dL Invalid Interpretation Code 7 - 18 mg/dL AO ADM SS Urea nitrogen/Creatinine [Mass ratio] 9 ratio Invalid Interpretation Code 7 - 27 ratio AO ADM SS .Auto Diffon 07-18-2023 Basophil, Absolute 0.1 10 3/mcL Normal 0.0-0.3 [facility] ([place] Comment on above: Performed By: #### T ANGELI #### [address] [address] Basophils/100 WBC (Bld) 0.9 % Normal 0.0-2.5 [facility] ([place]) Comment on above: Performed By: #### T ANGELI #### [address] [address] Eosinophil, Absolute 0.6 10 3/mcL Normal 0.0-0.7 [facility] ([place] Comment on above: Performed By: #### T ANGELI #### [address] [address] Eosinophils/100 WBC (Bld) 5.8 % Normal 0.0-6.0 [facility] ([place]) Comment on above: Performed By: #### T ANGELI #### [address] [address] Lymphocyte, Absolute 2.3 10 3/mcL Normal 0.9-4.3 [facility] ([place] Comment on above: Performed By: #### T ANGELI #### [address] [address] Lymphocytes/100 WBC (Bld) 23.4 % Normal 20.0-40.0 [facility] ([place] Comment on above: Performed By: #### T ANGELI #### [address] [address] Monocyte, Absolute 1.0 10 3/mcL Normal 0.1-1.4 [facility] ([place] Comment on above: Performed By: #### T ANGELI #### [address] [address] Monocytes/100 WBC (Bld) 9.9 % Normal 2.0-13.0 [facility] ([place] Comment on above: Performed By: #### T ANGELI #### [address] [address] Neutrophils/100 WBC (Bld) 60.0 % Normal 50.0-75.0 [facility] ([place] Comment on above: Performed By: #### T ANGELI #### [address] [address] .GFRon 07-18-2023 GFR Non- >60 Normal [facility] ([place] Comment on above: Result Comment: GFR Population mean for , Non- Americans Ages 20-29 = 116 mL/min/1.73 sq.m. Ages 30-39 = 107 mL/min/1.73 sq.m. Ages 40-49 = 99 mL/min/1.73 sq.m. Ages 50-59 = 93 mL/min/1.73 sq.m. Ages 60-69 = 85 mL/min/1.73 sq.m. Ages 70+ = 75 mL/min/1.73 sq.m. Chronic Kidney Disease: Less than 60 mL/min/1.73 square meters End Stage Renal Disease: Less than 15 mL/min/1.73 square meters Performed By: #### T ANGELI #### [address] [address] GFR >60 Normal [facility] ([place] Comment on above: Result Comment: GFR Population mean for , Non- Americans Ages 20-29 = 116 mL/min/1.73 sq.m. Ages 30-39 = 107 mL/min/1.73 sq.m. Ages 40-49 = 99 mL/min/1.73 sq.m. Ages 50-59 = 93 mL/min/1.73 sq.m. Ages 60-69 = 85 mL/min/1.73 sq.m. Ages 70+ = 75 mL/min/1.73 sq.m. Chronic Kidney Disease: Less than 60 mL/min/1.73 square meters End Stage Renal Disease: Less than 15 mL/min/1.73 square meters Performed By: #### T ANGELI #### [address] [address] .NEUABSon 07-18-2023 Neutrophil, Absolute 5.9 10 3/mcL Normal 2.3-8.1 [facility] ([place] Comment on above: Performed By: #### T ANGELI #### [place] [id number] CBCon 07-18-2023 Erythrocyte distribution width (RBC) [Ratio] 13.7 % Normal 11.5-15.5 [facility] ([place] Comment on above: Performed By: #### T ANGELI #### [place] [address] Hematocrit (Bld) [Volume fraction] 47.8 % Normal 40.0-52.0 [facility] ([place] Comment on above: Performed By: #### T ANGELI #### [place] [address] Hgb 16.3 G/dL Normal 13.0-17.5 [facility] ([place] Comment on above: Performed By: #### T ANGELI #### [place] [id number] MCH (RBC) [Entitic mass] 29.1 pg Normal 27.0-33.0 [facility] ([place] Comment on above: Performed By: #### T ANGELI #### [place] [id number] MCHC 34.1 G/dL Normal 32.0-36.0 [facility] ([place] Comment on above: Performed By: #### T ANGELI #### [place] [id number] MCV (RBC) [Entitic vol] 85.1 fL Normal 81.0-100.0 [facility] ([place] Comment on above: Performed By: #### T ANGELI #### [place] [id number] Platelet 254 10 3/mcL Normal 150-450 [facility] ([place] Comment on above: Performed By: #### T ANGELI #### [place] [id number] Platelet mean volume (Bld) [Entitic vol] 9.6 fL Normal 6.4-10.5 [facility] ([place] Comment on above: Performed By: #### T ANGELI #### [place] [address] RBC 5.61 10 6/mcL Normal 4.50-6.00 [facility] ([place] Comment on above: Performed By: #### T ANGELI #### [place] [id number] WBC 9.8 10 3/mcL Normal 4.5-10.8 [facility] ([place] Comment on above: Performed By: #### T ANGELI #### [place] [address] CMPon 07-18-2023 Albumin Level 3.4 G/dL Normal 3.2-4.8 [facility] ([place] Comment on above: Performed By: #### T ANGELI #### [place] [address] Albumin/Globulin [Mass ratio] 1.1 {ratio} Normal 0.9-1.6 [facility] ([place] Comment on above: Performed By: #### T ANGELI #### [place] [id number] ALP [Catalytic activity/Vol] 81 U/L Normal 38-126 [facility] ([place] Comment on above: Performed By: #### T ANGELI #### [place] [id number] ALT [Catalytic activity/Vol] 73 U/L High 12-55 [facility] ([place] Comment on above: Performed By: #### T ANGELI #### [address] [address] AST [Catalytic activity/Vol] 33 U/L Normal 8-34 [facility] ([place] Comment on above: Performed By: #### T ANGELI #### [address] [address] Bili Total 0.70 mg/dL Normal 0.20-1.20 [facility] ([place] Comment on above: Result Comment: Use of this assay is not recommended for patients undergoing treatment with eltrombopag due to the potential for falsely elevated results. Performed By: #### T ANGELI #### [place] [id number] BUN/Creatinine Ratio 16.8 ratio Normal 10.0-22.0 [facility] ([place] Comment on above: Performed By: #### T ANGELI #### [place] [id number] Calcium [Mass/Vol] 9.3 mg/dL Normal 8.7-10.4 [facility] ([place] Comment on above: Performed By: #### T ANGELI #### [address] [address] Chloride [Moles/Vol] 108 mmol/L Normal 98-110 [facility] ([place] Comment on above: Performed By: #### T ANGELI #### [address] [address] CO2 [Moles/Vol] 25 mmol/L Normal 22-32 [facility] ([place] Comment on above: Performed By: #### T ANGELI #### [address] [address] Creatinine [Mass/Vol] 1.07 mg/dL Normal 0.60-1.40 [facility] ([place] Comment on above: Performed By: #### T ANGELI #### [address] [address] Electrolyte Balance 7.0 mEq/L Normal 4.0-15.0 [facility] ([place] Comment on above: Performed By: #### T ANGELI #### [address] [address] Globulin 3.0 G/dL Normal 1.5-3.8 [facility] ([place] Comment on above: Performed By: #### T ANGELI #### [address] [address] Glucose [Mass/Vol] 111 mg/dL High 70-110 [facility] ([place] Comment on above: Performed By: #### T ANGELI #### [address] [address] Potassium [Moles/Vol] 4.6 mmol/L Normal 3.5-5.0 [facility] ([place] Comment on above: Performed By: #### T ANGELI #### [address] [address] Sodium [Moles/Vol] 140 mmol/L Normal 136-145 [facility] ([place] Comment on above: Performed By: #### T ANGELI #### [address] [address] Total Protein 6.4 G/dL Normal 5.7-8.2 [facility] ([place] Comment on above: Result Comment: No te - New Reference Range in effect 20 Performed By: #### T ANGELI #### [address] [address] Urea nitrogen [Mass/Vol] 18.0 mg/dL Normal 8.0-22.0 [facility] ([place]) Comment on above: Performed By: #### T ANGELI #### [address] [address] LABORATORYOrdered By: SYSTEM SYSTEM on 07-18-2023 Albumin BCP dye [Mass/Vol] 3.4 G/dL Invalid Interpretation Code 3.2 - 4.8 G/dL ADM SS Albumin/Globulin [Mass ratio] 1.1 {ratio} Invalid Interpretation Code 0.9 - 1.6 ratio AH ADM SS ALP [Catalytic activity/Vol] 81 U/L Invalid Interpretation Code 38 - 126 U/L ADM SS ALT No additional P-5'-P [Catalytic activity/Vol] 73 U/L Invalid Interpretation Code 12 - 55 U/L ADM SS AST [Catalytic activity/Vol] 33 U/L Invalid Interpretation Code 8 - 34 U/L ADM SS Basophils (Bld) [#/Vol] 0.1 103/mcL Invalid Interpretation Code 0.0 - 0.3 10^3/mcL Workflow SS Basophils/100 WBC (Bld) 0.9 % Invalid Interpretation Code 0.0 - 2.5 % Workflow SS Bilirubin [Mass/Vol] 0.70 mg/dL Invalid Interpretation Code 0.20 - 1.20 mg/dL ADM SS Comment on above: Interpretive Data: U se of this assay is not recommended for patients undergoing treatment with eltrombopag due to the potential for falsely elevated results. Calcium [Mass/Vol] 9.3 mg/dL Invalid Interpretation Code 8.7 - 10.4 mg/dL ADM SS Chloride [Moles/Vol] 108 mmol/L Invalid Interpretation Code 98 - 110 mEq/L ADM SS CO2 [Moles/Vol] 25 mmol/L Invalid Interpretation Code 22 - 32 mEq/L ADM SS Creatinine [Mass/Vol] 1.07 mg/dL Invalid Interpretation Code 0.60 - 1.40 mg/dL ADM SS Electrolyte Balance 7.0 mEq/L Invalid Interpretation Code 4.0 - 15.0 mEq/L ADM SS Eosinophils (Bld) [#/Vol] 0.6 103/mcL Invalid Interpretation Code 0.0 - 0.7 10^3/mcL Workflow SS Eosinophils/100 WBC (Bld) 5.8 % Invalid Interpretation Code 0.0 - 6.0 % Workflow SS Erythrocyte distribution width (RBC) [Ratio] 13.7 % Invalid Interpretation Code 11.5 - 15.5 % Workflow SS GFR/1.73 sq M.predicted among blacks MDRD (S/P/Bld) [Vol rate/Area] ml/min/1.73sqm Invalid Interpretation Code Chemistry S Comment on above: Interpretive Data: GFR Population mean for , Non- Americans Ages 20-29 = 116 mL/min/1.73 sq.m. Ages 30-39 = 107 mL/min/1.73 sq.m. Ages 40-49 = 99 mL/min/1.73 sq.m. Ages 50-59 = 93 mL/min/1.73 sq.m. Ages 60-69 = 85 mL/min/1.73 sq.m. Ages 70+ = 75 mL/min/1.73 sq.m. Chronic Kidney Disease: Less than 60 mL/min/1.73 square meters End Stage Renal Disease: Less than 15 mL/min/1.73 square meters GFR/1.73 sq M.predicted among non-blacks MDRD (S/P/Bld) [Vol rate/Area] ml/min/1.73sqm Invalid Interpretation Code Chemistry S Comment on above: Interpretive Data: GFR Population mean for , Non- Americans Ages 20-29 = 116 mL/min/1.73 sq.m. Ages 30-39 = 107 mL/min/1.73 sq.m. Ages 40-49 = 99 mL/min/1.73 sq.m. Ages 50-59 = 93 mL/min/1.73 sq.m. Ages 60-69 = 85 mL/min/1.73 sq.m. Ages 70+ = 75 mL/min/1.73 sq.m. Chronic Kidney Disease: Less than 60 mL/min/1.73 square meters End Stage Renal Disease: Less than 15 mL/min/1.73 square meters Globulin 3.0 G/dL Invalid Interpretation Code 1.5 - 3.8 G/dL ADM SS Glucose [Mass/Vol] 111 mg/dL Invalid Interpretation Code 70 - 110 mg/dL ADM SS Hematocrit (Bld) [Volume fraction] 47.8 % Invalid Interpretation Code 40.0 - 52.0 % Workflow SS Hemoglobin (Bld) [Mass/Vol] 16.3 G/dL Invalid Interpretation Code 13.0 - 17.5 G/dL Workflow SS Lymphocytes (Bld) [#/Vol] 2.3 103/mcL Invalid Interpretation Code 0.9 - 4.3 10^3/mcL Workflow SS Lymphocytes/100 WBC (Bld) 23.4 % Invalid Interpretation Code 20.0 - 40.0 % Workflow SS Magnesium [Mass/Vol] 1.9 mg/dL Invalid Interpretation Code 1.6 - 2.4 mg/dL ADM SS MCH (RBC) [Entitic mass] 29.1 pg Invalid Interpretation Code 27.0 - 33.0 pg Workflow SS MCHC 34.1 G/dL Invalid Interpretation Code 32.0 - 36.0 G/dL AH Workflow SS MCV (RBC) [Entitic vol] 85.1 fL Invalid Interpretation Code 81.0 - 100.0 fL AH Workflow SS Monocytes (Bld) [#/Vol] 1.0 103/mcL Invalid Interpretation Code 0.1 - 1.4 10^3/mcL AH Workflow SS Monocytes/100 WBC (Bld) 9.9 % Invalid Interpretation Code 2.0 - 13.0 % AH Workflow SS Neutrophils (Bld) [#/Vol] 5.9 103/mcL Invalid Interpretation Code 2.3 - 8.1 10^3/mcL AH Workflow SS Neutrophils/100 WBC (Bld) 60.0 % Invalid Interpretation Code 50.0 - 75.0 % AH Workflow SS Platelet mean volume (Bld) [Entitic vol] 9.6 fL Invalid Interpretation Code 6.4 - 10.5 fL AH Workflow SS Platelets (Bld) [#/Vol] 254 103/mcL Invalid Interpretation Code 150 - 450 10^3/mcL AH Workflow SS Potassium [Moles/Vol] 4.6 mmol/L Invalid Interpretation Code 3.5 - 5.0 mEq/L AH ADM SS Protein [Mass/Vol] 6.4 G/dL Invalid Interpretation Code 5.7 - 8.2 G/dL AH ADM SS Comment on above: Interpretive Data: * *Note - New Reference Range in effect 20 RBC (Bld) [#/Vol] 5.61 106/mcL Invalid Interpretation Code 4.50 - 6.00 10^6/mcL AH Workflow SS Sodium [Moles/Vol] 140 mmol/L Invalid Interpretation Code 136 - 145 mEq/L AH ADM SS Urea nitrogen [Mass/Vol] 18.0 mg/dL Invalid Interpretation Code 8.0 - 22.0 mg/dL AH ADM SS Urea nitrogen/Creatinine [Mass ratio] 16.8 ratio Invalid Interpretation Code 10.0 - 22.0 ratio AH ADM SS WBC (Bld) [#/Vol] 9.8 103/mcL Invalid Interpretation Code 4.5 - 10.8 10^3/mcL AH Workflow SS MGon 07-18-2023 Magnesium [Mass/Vol] 1.9 mg/dL Normal 1.6-2.4 [facility] ([place]) Comment on above: Performed By: #### T [facility] #### [facility] [address] [place] [address] .Auto Diffon 07-16-2023 Basophil, Absolute 0.1 10 3/mcL Normal 0.0-0.3 [facility] ([place]) Comment on above: Performed By: #### A PTT #### [facility] [address] [place], [place] [address] Basophils/100 WBC (Bld) 0.6 % Normal 0.0-2.5 [facility] ([place]) Comment on above: Performed By: #### A PTT #### [facility] [address] [place], [place] [address] Eosinophil, Absolute 0.7 10 3/mcL Normal 0.0-0.7 [facility] ([place]) Comment on above: Performed By: #### A PTT #### [facility] [address] [place], [place] [address] Eosinophils/100 WBC (Bld) 7.2 % High 0.0-6.0 [facility] ([place]) Comment on above: Performed By: #### A PTT #### [facility] [address] [place], [place] [address] Lymphocyte, Absolute 2.5 10 3/mcL Normal 0.9-4.3 [facility] ([place]) Comment on above: Performed By: #### A PTT #### [facility] [address] [place], [place] [address] Lymphocytes/100 WBC (Bld) 24.9 % Normal 20.0-40.0 [facility] ([place]) Comment on above: Performed By: #### A PTT #### [facility] [address] [place], [place] [address] Monocyte, Absolute 1.0 10 3/mcL Normal 0.1-1.4 [facility] ([place]) Comment on above: Performed By: #### A PTT #### [facility] [address] [place], [place] [address] Monocytes/100 WBC (Bld) 10.0 % Normal 2.0-13.0 [facility] ([place]) Comment on above: Performed By: #### A PTT #### [facility] [address] [place], [place] [address] Neutrophils/100 WBC (Bld) 57.3 % Normal 50.0-75.0 [facility] ([place]) Comment on above: Performed By: #### A PTT #### [facility] [address] [place], [place] [address] .GFRon 07-16-2023 GFR >60 Normal [facility] ([place]) Comment on above: Result Comment: GFR Population mean for , Non- Americans Ages 20-29 = 116 mL/min/1.73 sq.m. Ages 30-39 = 107 mL/min/1.73 sq.m. Ages 40-49 = 99 mL/min/1.73 sq.m. Ages 50-59 = 93 mL/min/1.73 sq.m. Ages 60-69 = 85 mL/min/1.73 sq.m. Ages 70+ = 75 mL/min/1.73 sq.m. Chronic Kidney Disease: Less than 60 mL/min/1.73 square meters End Stage Renal Disease: Less than 15 mL/min/1.73 square meters Performed By: #### A PTT #### [facility] [address] [place], [place] [address] GFR Non- >60 Normal [facility] ([place]) Comment on above: Result Comment: GFR Population mean for , Non- Americans Ages 20-29 = 116 mL/min/1.73 sq.m. Ages 30-39 = 107 mL/min/1.73 sq.m. Ages 40-49 = 99 mL/min/1.73 sq.m. Ages 50-59 = 93 mL/min/1.73 sq.m. Ages 60-69 = 85 mL/min/1.73 sq.m. Ages 70+ = 75 mL/min/1.73 sq.m. Chronic Kidney Disease: Less than 60 mL/min/1.73 square meters End Stage Renal Disease: Less than 15 mL/min/1.73 square meters Performed By: #### A PTT #### [facility] [address] [place], [place] [address] .NEUABSon 07-16-2023 Neutrophil, Absolute 5.7 10 3/mcL Normal 2.3-8.1 [facility] ([place]) Comment on above: Performed By: #### A PTT #### [facility] [address] [place], [place] [address] BMPon 07-16-2023 BUN/Creatinine Ratio 12.8 ratio Normal 10.0-22.0 [facility] ([place]) Comment on above: Order Comment: QNS & Hemolyzed 07/16/2023 05:30:09 EDT. Performed By: #### A PTT #### [facility] [address] [place], [place] [address] Calcium [Mass/Vol] 9.0 mg/dL Normal 8.7-10.4 [facility] ([place]) Comment on above: Order Comment: QNS & Hemolyzed 07/16/2023 05:30:09 EDT. Performed By: #### A PTT #### [facility] [address] [place], [place] [address] Chloride [Moles/Vol] 109 mmol/L Normal 98-110 [facility] ([place]) Comment on above: Order Comment: QNS & Hemolyzed 07/16/2023 05:30:09 EDT. Performed By: #### A PTT #### [facility] [address] [place], [place] [address] CO2 [Moles/Vol] 28 mmol/L Normal 22-32 [facility] ([place]) Comment on above: Order Comment: QNS & Hemolyzed 07/16/2023 05:30:09 EDT. Performed By: #### A PTT #### [facility] [address] [place], [place] [address] Creatinine [Mass/Vol] 1.33 mg/dL Normal 0.60-1.40 [facility] ([place]) Comment on above: Order Comment: QNS & Hemolyzed 07/16/2023 05:30:09 EDT. Performed By: #### A PTT #### [facility] [address] [place], [place] [address] Electrolyte Balance 6.0 mEq/L Normal 4.0-15.0 [facility] ([place]) Comment on above: Order Comment: QNS & Hemolyzed 07/16/2023 05:30:09 EDT. Performed By: #### A PTT #### [facility] [address] [place], [place] [address] Glucose [Mass/Vol] 115 mg/dL High 70-110 [facility] ([place]) Comment on above: Order Comment: QNS & Hemolyzed 07/16/2023 05:30:09 EDT. Performed By: #### A PTT #### [facility] [address] [place], [place] [address] Potassium [Moles/Vol] 4.4 mmol/L Normal 3.5-5.0 [facility] ([place]) Comment on above: Order Comment: QNS & Hemolyzed 07/16/2023 05:30:09 EDT. Performed By: #### A PTT #### [facility] [address] [place], [place] [address] Sodium [Moles/Vol] 143 mmol/L Normal 136-145 [facility] ([place] Comment on above: Order Comment: QNS & Hemolyzed 07/16/2023 05:30:09 EDT. Performed By: #### A PTT #### [facility] [address] [place], [place] [address] Urea nitrogen [Mass/Vol] 17.0 mg/dL Normal 8.0-22.0 [facility] ([place]) Comment on above: Order Comment: QNS & Hemolyzed 07/16/2023 05:30:09 EDT. Performed By: #### A PTT #### [facility] [address] [place], [place] [address] CBCon 07-16-2023 Erythrocyte distribution width (RBC) [Ratio] 13.8 % Normal 11.5-15.5 [facility] ([place]) Comment on above: Performed By: #### A PTT #### [facility] [address] [place], [place] [address] Hematocrit (Bld) [Volume fraction] 46.5 % Normal 40.0-52.0 [facility] ([place]) Comment on above: Performed By: #### A PTT #### [facility] [address] [place], [place] [address] Hgb 15.9 G/dL Normal 13.0-17.5 [facility] ([place] Comment on above: Performed By: #### A PTT #### [facility] [address] [place], [place] [address] MCH (RBC) [Entitic mass] 29.9 pg Normal 27.0-33.0 [facility] ([place]) Comment on above: Performed By: #### A PTT #### [facility] [address] [place], [place] [address] MCHC 34.2 G/dL Normal 32.0-36.0 [facility] ([place] Comment on above: Performed By: #### A PTT #### [facility] [address] [place], [place] [address] MCV (RBC) [Entitic vol] 87.3 fL Normal 81.0-100.0 [facility] ([place]) Comment on above: Performed By: #### A PTT #### [facility] [address] [place], [place] [address] Platelet 209 10 3/mcL Normal 150-450 [facility] ([place] Comment on above: Performed By: #### A PTT #### [facility] [address] [place], [place] [address] Platelet mean volume (Bld) [Entitic vol] 9.4 fL Normal 6.4-10.5 [facility] ([place]) Comment on above: Performed By: #### A PTT #### [facility] [address] [place], [place] [address] RBC 5.32 10 6/mcL Normal 4.50-6.00 [facility] ([place]) Comment on above: Performed By: #### A PTT #### [facility] [address] [place], [place] [address] WBC 10.0 10 3/mcL Normal 4.5-10.8 [facility] ([place]) Comment on above: Performed By: #### A PTT #### Mary [place] [address] [place], [place] [address] CRPon 07-16-2023 C-Reactive Protein 0.5 mg/dL Normal 0.0-1.0 [facility] ([place]) Comment on above: Result Comment: No te - New Reference Range in effect 20 Performed By: #### T ROPHS #### [facility] [address] [place], [place] [address] DRUGUon 07-16-2023 Amphetamine (u) Negative Normal Negative [facility] ([place]) Comment on above: Performed By: #### D RUGU #### Mary [place] [address] [place], [place] [address] Barbiturate (u) Negative Normal Negative [facility] ([place]) Comment on above: Performed By: #### D RUGU #### Mary [place] [address] [place], [place] [address] Benzodiazepine (u) Negative Normal Negative [facility] ([place]) Comment on above: Performed By: #### Priscila RUGU #### [facility] [place] [address] [place], [place] [address] Cannabinoid (u) Negative Normal Negative [facility] ([place]) Comment on above: Performed By: #### D RUGU #### Mary [place] [address] [place], [place] [address] Cocaine Ql (U) Negative Normal Negative [facility] ([place]) Comment on above: Performed By: #### Priscila RUGU #### Mary [place] [address] [place], [place] [address] Fentanyl (u) Negative Normal Negative [facility] ([place]) Comment on above: Result Comment: Test ing has been performed FOR MEDICAL PURPOSES ONLY. Performed By: #### D RUGU #### Mary [place] [address] [place], [place] [address] Methadone Ql (U) Negative Normal Negative [facility] ([place]) Comment on above: Performed By: #### D RUGU #### Mary [place] [address] [place], [place] [address] Opiate (u) Positive Abnormal Negative [facility] ([place]) Comment on above: Performed By: #### D RUGU #### [facility] [address] [place], [place] [address] Oxycodone (u) Negative Normal Negative [facility] ([place]) Comment on above: Result Comment: Test ing has been performed FOR MEDICAL PURPOSES ONLY. Performed By: #### D RUGU #### Mary [facility] [address] [place] [phone] PCP (u) Negative Normal Negative [facility] ([place]) Comment on above: Performed By: #### D RUGU #### Mary [facility] [address] [place] [phone] Propoxyphene (u) Negative Normal Negative [facility] ([place]) Comment on above: Performed By: #### D RUGU #### Mary [facility] [address] [place] [phone] U pH Drug Scrn 6.5 Normal 5.0-8.0 [facility] ([place] Comment on above: Performed By: #### D RUGU #### Mary [facility] [address] [place] [phone] Urine Drugs screened: See Below Normal [facility] ([place] Comment on above: Result Comment: This drug screen is a presumptive screening only. No confirmation will be performed unless requested. Drugs screened include: Threshold Amphetamines/Methamphetamines 1,000 ng/mL Barbiturates 200 ng/mL Benzodiazepine metabolites 200 ng/mL Cannabinoids (THC metabolites) 50 ng/mL Benzoylecognine (Cocaine metab) 300 ng/mL Opiates 300 ng/mL Phencyclidine (PCP) 25 ng/mL Methadone 300 ng/mL Propoxyphene 300 ng/mL Fentanyl 1.0 ng/mL Oxycodone 100 ng/mL Testing has been performed FOR MEDICAL PURPOSES ONLY. Performed By: #### D RUGU #### [facility] [address] [place], [place] [address] ESRon 07-16-2023 Erythrocyte Sed Rate 16 mm/hr High 0-15 [facility] ([place]) Comment on above: Performed By: #### T ROP #### [facility] [address] [place] [address] [facility] 07-16-2023 Bili Indirect 0.3 mg/dL Normal 0.1-10.0 [facility] ([place]) Comment on above: Order Comment: QNS & Hemolyzed 07/16/2023 05:30:54 EDT. Performed By: #### A PTT #### Mary [place] [address] [place], [place] [address] Albumin Level 3.2 G/dL Normal 3.2-4.8 [facility] ([place]) Comment on above: Order Comment: QNS & Hemolyzed 07/16/2023 05:30:54 EDT. Performed By: #### A PTT #### [facility] [address] [place] [address] Albumin/Globulin [Mass ratio] 1.2 {ratio} Normal 0.9-1.6 [facility] ([place]) Comment on above: Order Comment: QNS & Hemolyzed 07/16/2023 05:30:54 EDT. Performed By: #### A PTT #### [facility] [address] [place], [place] [address] ALP [Catalytic activity/Vol] 75 U/L Normal 38-126 [facility] ([place]) Comment on above: Order Comment: QNS & Hemolyzed 07/16/2023 05:30:54 EDT. Performed By: #### A PTT #### Mary [facility] [address] [place], [place] [address] ALT [Catalytic activity/Vol] 76 U/L High 12-55 [facility] ([place]) Comment on above: Order Comment: QNS & Hemolyzed 07/16/2023 05:30:54 EDT. Performed By: #### A PTT #### [facility] [address] [place], [place] [address] AST [Catalytic activity/Vol] 59 U/L High 8-34 [facility] ([place]) Comment on above: Order Comment: QNS & Hemolyzed 07/16/2023 05:30:54 EDT. Performed By: #### A PTT #### [facility] [address] [place], [place] [address] Bili Direct 0.2 mg/dL Normal 0.0-0.4 [facility] ([place]) Comment on above: Order Comment: QNS & Hemolyzed 07/16/2023 05:30:54 EDT. Result Comment: Use of this assay is not recommended for patients undergoing treatment with eltrombopag due to the potential for falsely elevated results. Performed By: #### A PTT #### [facility] [address] [place], [place] [address] Bili Total 0.50 mg/dL Normal 0.20-1.20 [facility] ([place]) Comment on above: Order Comment: QNS & Hemolyzed 07/16/2023 05:30:54 EDT. Result Comment: Use of this assay is not recommended for patients undergoing treatment with eltrombopag due to the potential for falsely elevated results. Performed By: #### A PTT #### [facility] [address] [place], [place] [address] Globulin 2.7 G/dL Normal 1.5-3.8 [facility] ([place]) Comment on above: Order Comment: QNS & Hemolyzed 07/16/2023 05:30:54 EDT. Performed By: #### A PTT #### [facility] [address] [place], [place] [address] Total Protein 5.9 G/dL Normal 5.7-8.2 [facility] ([place]) Comment on above: Order Comment: QNS & Hemolyzed 07/16/2023 05:30:54 EDT. Result Comment: No te - New Reference Range in effect 20 Performed By: #### A PTT #### [facility] [address] [place], [place] [address] HHon 07-16-2023 Hematocrit (Bld) [Volume fraction] 46.6 % Normal 40.0-52.0 [facility] ([place]) Comment on above: Performed By: #### D RUGU #### Mary [facility] [address] [place], [place] [address] Hgb 16.0 G/dL Normal 13.0-17.5 [facility] ([place] Comment on above: Performed By: #### D RUGU #### [facility] [address] [place], [place] [address] Hematocrit (Bld) [Volume fraction] 45.5 % Normal 40.0-52.0 [facility] ([place]) Comment on above: Performed By: #### H H #### [address] [address] Hgb 15.5 G/dL Normal 13.0-17.5 [facility] ([place]) Comment on above: Performed By: #### H H #### [address] [address] LABORATORYOrdered By: Seema Satler on 07-16-2023 Amphetamines Screen Ql (U) Negative *NA* (07/16/23 8:10 PM) Invalid Interpretation Code Negative AH ADM SS Barbiturates Screen Ql (U) Negative *NA* (07/16/23 8:10 PM) Invalid Interpretation Code Negative AH ADM SS Benzodiazepines Ql (U) Negative *NA* (07/16/23 8:10 PM) Invalid Interpretation Code Negative AH ADM SS Benzoylecgonine Screen Ql (U) Negative *NA* (07/16/23 8:10 PM) Invalid Interpretation Code Negative AH ADM SS Cannabinoids Screen Ql (U) Negative *NA* (07/16/23 8:10 PM) Invalid Interpretation Code Negative AH ADM SS fentaNYL Screen Ql (U) Negative 1 *NA* (07/16/23 8:10 PM) Invalid Interpretation Code Negative AH ADM SS Comment on above: Interpretive Data: T esting has been performed FOR MEDICAL PURPOSES ONLY. Methadone Screen Ql (U) Negative *NA* (07/16/23 8:10 PM) Invalid Interpretation Code Negative AH ADM SS Opiates Screen Ql (U) Positive *ABN* (07/16/23 8:10 PM) Invalid Interpretation Code Negative AH ADM SS oxyCODONE Ql (U) Negative 2 *NA* (07/16/23 8:10 PM) Invalid Interpretation Code Negative AH ADM SS Comment on above: Interpretive Data: T esting has been performed FOR MEDICAL PURPOSES ONLY. pH (U) 6.5 [pH] Invalid Interpretation Code 5.0 - 8.0 Chemistry S Phencyclidine Ql (U) Negative *NA* (07/16/23 8:10 PM) Invalid Interpretation Code Negative ADM SS Propoxyphene Screen Ql (U) Negative *NA* (07/16/23 8:10 PM) Invalid Interpretation Code Negative ADM SS Urine Drugs screened: See Below 14 (07/16/23 8:10 PM) Invalid Interpretation Code Chemistry S Comment on above: Interpretive Data: T his drug screen is a presumptive screening only. No confirmation will be performed unless requested. Drugs screened include: Threshold Amphetamines/Methamphetamines 1,000 ng/mL Barbiturates 200 ng/mL Benzodiazepine metabolites 200 ng/mL Cannabinoids (THC metabolites) 50 ng/mL Benzoylecognine (Cocaine metab) 300 ng/mL Opiates 300 ng/mL Phencyclidine (PCP) 25 ng/mL Methadone 300 ng/mL Propoxyphene 300 ng/mL Fentanyl 1.0 ng/mL Oxycodone 100 ng/mL Testing has been performed FOR MEDICAL PURPOSES ONLY. LABORATORYOrdered By: SYSTEM SYSTEM on 07-16-2023 Hematocrit (Bld) [Volume fraction] 46.6 % Invalid Interpretation Code 40.0 - 52.0 % Workflow SS Hemoglobin (Bld) [Mass/Vol] 16.0 G/dL Invalid Interpretation Code 13.0 - 17.5 G/dL Workflow SS CRP [Mass/Vol] 0.5 mg/dL Invalid Interpretation Code 0.0 - 1.0 mg/dL [facility] Comment on above: Interpretive Data: * *Note - New Reference Range in effect 20 Hematocrit (Bld) [Volume fraction] 45.5 % Invalid Interpretation Code 40.0 - 52.0 % Workflow SS Hemoglobin (Bld) [Mass/Vol] 15.5 G/dL Invalid Interpretation Code 13.0 - 17.5 G/dL Workflow SS Troponin I.cardiac DL <= 0.01 ng/mL [Mass/Vol] 72.97 ng/L Invalid Interpretation Code 0.00 - 54.00 ng/L ADM Comment on above: Interpretive Data: I f the High Sensitive Troponin result is below the 99th percentile value (<45 ng/L) at the first blood draw, at least two additional blood samples should be drawn before results are interpreted as negative for AMI. Albumin BCP dye [Mass/Vol] 3.2 G/dL Invalid Interpretation Code 3.2 - 4.8 G/dL ADM SS Albumin/Globulin [Mass ratio] 1.2 {ratio} Invalid Interpretation Code 0.9 - 1.6 ratio ADM SS ALP [Catalytic activity/Vol] 75 U/L Invalid Interpretation Code 38 - 126 U/L ADM SS ALT No additional P-5'-P [Catalytic activity/Vol] 76 U/L Invalid Interpretation Code 12 - 55 U/L ADM SS AST [Catalytic activity/Vol] 59 U/L Invalid Interpretation Code 8 - 34 U/L ADM SS Bili Indirect 0.3 mg/dL Invalid Interpretation Code 0.1 - 10.0 mg/dL Chemistry S Bilirubin [Mass/Vol] 0.50 mg/dL Invalid Interpretation Code 0.20 - 1.20 mg/dL ADM SS Comment on above: Interpretive Data: U se of this assay is not recommended for patients undergoing treatment with eltrombopag due to the potential for falsely elevated results. Bilirubin.conjugate d [Mass/Vol] 0.2 mg/dL Invalid Interpretation Code 0.0 - 0.4 mg/dL ADM SS Comment on above: Interpretive Data: U se of this assay is not recommended for patients undergoing treatment with eltrombopag due to the potential for falsely elevated results. Calcium [Mass/Vol] 9.0 mg/dL Invalid Interpretation Code 8.7 - 10.4 mg/dL ADM SS Chloride [Moles/Vol] 109 mmol/L Invalid Interpretation Code 98 - 110 mEq/L ADM SS CO2 [Moles/Vol] 28 mmol/L Invalid Interpretation Code 22 - 32 mEq/L ADM SS Creatinine [Mass/Vol] 1.33 mg/dL Invalid Interpretation Code 0.60 - 1.40 mg/dL ADM SS Electrolyte Balance 6.0 mEq/L Invalid Interpretation Code 4.0 - 15.0 mEq/L ADM SS GFR/1.73 sq M.predicted among blacks MDRD (S/P/Bld) [Vol rate/Area] ml/min/1.73sqm Invalid Interpretation Code Chemistry S Comment on above: Interpretive Data: GFR Population mean for , Non- Americans Ages 20-29 = 116 mL/min/1.73 sq.m. Ages 30-39 = 107 mL/min/1.73 sq.m. Ages 40-49 = 99 mL/min/1.73 sq.m. Ages 50-59 = 93 mL/min/1.73 sq.m. Ages 60-69 = 85 mL/min/1.73 sq.m. Ages 70+ = 75 mL/min/1.73 sq.m. Chronic Kidney Disease: Less than 60 mL/min/1.73 square meters End Stage Renal Disease: Less than 15 mL/min/1.73 square meters GFR/1.73 sq M.predicted among non-blacks MDRD (S/P/Bld) [Vol rate/Area] ml/min/1.73sqm Invalid Interpretation Code Chemistry S Comment on above: Interpretive Data: GFR Population mean for , Non- Americans Ages 20-29 = 116 mL/min/1.73 sq.m. Ages 30-39 = 107 mL/min/1.73 sq.m. Ages 40-49 = 99 mL/min/1.73 sq.m. Ages 50-59 = 93 mL/min/1.73 sq.m. Ages 60-69 = 85 mL/min/1.73 sq.m. Ages 70+ = 75 mL/min/1.73 sq.m. Chronic Kidney Disease: Less than 60 mL/min/1.73 square meters End Stage Renal Disease: Less than 15 mL/min/1.73 square meters Globulin 2.7 G/dL Invalid Interpretation Code 1.5 - 3.8 G/dL ADM SS Glucose [Mass/Vol] 115 mg/dL Invalid Interpretation Code 70 - 110 mg/dL ADM SS Potassium [Moles/Vol] 4.4 mmol/L Invalid Interpretation Code 3.5 - 5.0 mEq/L ADM SS Protein [Mass/Vol] 5.9 G/dL Invalid Interpretation Code 5.7 - 8.2 G/dL ADM SS Comment on above: Interpretive Data: * *Note - New Reference Range in effect 20 Sodium [Moles/Vol] 143 mmol/L Invalid Interpretation Code 136 - 145 mEq/L ADM SS Troponin I.cardiac DL <= 0.01 ng/mL [Mass/Vol] 87.92 ng/L Invalid Interpretation Code 0.00 - 54.00 ng/L AH ADM SS Comment on above: Interpretive Data: I f the High Sensitive Troponin result is below the 99th percentile value (<45 ng/L) at the first blood draw, at least two additional blood samples should be drawn before results are interpreted as negative for AMI. Urea nitrogen [Mass/Vol] 17.0 mg/dL Invalid Interpretation Code 8.0 - 22.0 mg/dL AH ADM SS Urea nitrogen/Creatinine [Mass ratio] 12.8 ratio Invalid Interpretation Code 10.0 - 22.0 ratio AH ADM SS Basophils (Bld) [#/Vol] 0.1 103/mcL Invalid Interpretation Code 0.0 - 0.3 10^3/mcL AH Workflow SS Basophils/100 WBC (Bld) 0.6 % Invalid Interpretation Code 0.0 - 2.5 % AH Workflow SS Eosinophils (Bld) [#/Vol] 0.7 103/mcL Invalid Interpretation Code 0.0 - 0.7 10^3/mcL AH Workflow SS Eosinophils/100 WBC (Bld) 7.2 % Invalid Interpretation Code 0.0 - 6.0 % AH Workflow SS Erythrocyte distribution width (RBC) [Ratio] 13.8 % Invalid Interpretation Code 11.5 - 15.5 % AH Workflow SS Lymphocytes (Bld) [#/Vol] 2.5 103/mcL Invalid Interpretation Code 0.9 - 4.3 10^3/mcL AH Workflow SS Lymphocytes/100 WBC (Bld) 24.9 % Invalid Interpretation Code 20.0 - 40.0 % AH Workflow SS MCH (RBC) [Entitic mass] 29.9 pg Invalid Interpretation Code 27.0 - 33.0 pg AH Workflow SS MCHC 34.2 G/dL Invalid Interpretation Code 32.0 - 36.0 G/dL AH Workflow SS MCV (RBC) [Entitic vol] 87.3 fL Invalid Interpretation Code 81.0 - 100.0 fL AH Workflow SS Monocytes (Bld) [#/Vol] 1.0 103/mcL Invalid Interpretation Code 0.1 - 1.4 10^3/mcL AH Workflow SS Monocytes/100 WBC (Bld) 10.0 % Invalid Interpretation Code 2.0 - 13.0 % AH Workflow SS Neutrophils (Bld) [#/Vol] 5.7 103/mcL Invalid Interpretation Code 2.3 - 8.1 10^3/mcL AH Workflow SS Neutrophils/100 WBC (Bld) 57.3 % Invalid Interpretation Code 50.0 - 75.0 % Workflow SS Platelet mean volume (Bld) [Entitic vol] 9.4 fL Invalid Interpretation Code 6.4 - 10.5 fL Workflow SS Platelets (Bld) [#/Vol] 209 103/mcL Invalid Interpretation Code 150 - 450 10^3/mcL Workflow SS RBC (Bld) [#/Vol] 5.32 106/mcL Invalid Interpretation Code 4.50 - 6.00 10^6/mcL Workflow SS Troponin I.cardiac DL <= 0.01 ng/mL [Mass/Vol] 83.37 ng/L Invalid Interpretation Code 0.00 - 54.00 ng/L ADM SS Comment on above: Interpretive Data: I f the High Sensitive Troponin result is below the 99th percentile value (<45 ng/L) at the first blood draw, at least two additional blood samples should be drawn before results are interpreted as negative for AMI. WBC (Bld) [#/Vol] 10.0 103/mcL Invalid Interpretation Code 4.5 - 10.8 10^3/mcL Workflow SS LABORATORYOrdered By: John Weiner on 07-16-2023 ESR 15 minute reading (Bld) [Velocity] 16 mm/hr Invalid Interpretation Code 0 - 15 mm/hr Manual Heme SS LABORATORYOrdered By: Marija Bacon on 07-16-2023 Natriuretic peptide.B prohormone N-Terminal [Mass/Vol] 624 pg/mL Invalid Interpretation Code 0 - 450 pg/mL Auto Chem SS Comment on above: Interpretive Data: N T-proBNP results of less than 300 pg/mL effectively rules out acute congestive heart failure with 99% negative predictive value. LABORATORYOrdered By: Nan Payton on 07-16-2023 Cholesterol [Mass/Vol] 150 mg/dL Invalid Interpretation Code 50 - 199 mg/dL ADM SS Comment on above: Interpretive Data: C holesterol Reference Interval: Less than 200 Desirable 200-239 Borderline high risk 240 and above High risk Cholesterol in HDL [Mass/Vol] 28 mg/dL Invalid Interpretation Code 40 - 59 mg/dL ADM SS Cholesterol in LDL [Mass/Vol] 64 mg/dL Invalid Interpretation Code 0 - 129 mg/dL ADM SS Triglyceride [Mass/Vol] 292 mg/dL Invalid Interpretation Code 3 - 149 mg/dL AH ADM SS LIPIDon 07-16-2023 Cholesterol [Mass/Vol] 150 mg/dL Normal 50-199 [facility] ([place]) Comment on above: Order Comment: Qns & Hemolyzed 07/16/2023 05:31:20 EDT. Called @ 05:31 No Answer Result Comment: Chol esterol Reference Interval: Less than 200 Desirable 200-239 Borderline high risk 240 and above High risk Performed By: #### A PTT #### [facility] [address] [place], [place] [address] Cholesterol in HDL [Mass/Vol] 28 mg/dL Low 40-59 [facility] ([place]) Comment on above: Order Comment: Qns & Hemolyzed 07/16/2023 05:31:20 EDT. Called @ 05:31 No Answer Performed By: #### A PTT #### [facility] [address] [place], [place] [address] Cholesterol in LDL [Mass/Vol] 64 mg/dL Normal 0-129 [facility] ([place] Comment on above: Order Comment: Qns & Hemolyzed 07/16/2023 05:31:20 EDT. Called @ 05:31 No Answer Performed By: #### A PTT #### [facility] [address] [place], [place] [address] Triglyceride [Mass/Vol] 292 mg/dL High 3-149 [facility] ([place] Comment on above: Order Comment: Qns & Hemolyzed 07/16/2023 05:31:20 EDT. Called @ 05:31 No Answer Performed By: #### A PTT #### [facility] [address] [place], [place] [address] PBNPon 07-16-2023 Natriuretic peptide B (Bld) [Mass/Vol] 624 pg/mL High 0-450 [facility] ([place] Comment on above: Result Comment: NT-p roBNP results of less than 300 pg/mL effectively rules out acute congestive heart failure with 99% negative predictive value. Performed By: #### P BNP #### [facility] [address] [place] [address] [facility] 07-16-2023 Troponin I High Sensitivity 72.97 ng/L High 0.00-54.00 [facility] ([place] Comment on above: Result Comment: If t he High Sensitive Troponin result is below the 99th percentile value (<45 ng/L) at the first blood draw, at least two additional blood samples should be drawn before results are interpreted as negative for AMI. Performed By: #### P BNP #### [place] [address] Troponin I High Sensitivity 87.92 ng/L High 0.00-54.00 [facility] ([place] Comment on above: Result Comment: If t he High Sensitive Troponin result is below the 99th percentile value (<45 ng/L) at the first blood draw, at least two additional blood samples should be drawn before results are interpreted as negative for AMI. Performed By: #### T ROPHS #### [place] [address] Troponin I High Sensitivity 83.37 ng/L High 0.00-54.00 [facility] ([place] Comment on above: Result Comment: If t he High Sensitive Troponin result is below the 99th percentile value (<45 ng/L) at the first blood draw, at least two additional blood samples should be drawn before results are interpreted as negative for AMI. Performed By: #### A PTT #### [facility] [address] [place], [place] [address] XR CHEST 1 VIEWon 07-16-2023 XR CHEST 1 VIEW ORIGINAL EXAMINATION: ONE XRAY VIEW OF THE CHEST 07/16/2023 12:25 pm COMPARISON: 07/10/2023 HISTORY: ORDERING SYSTEM PROVIDED HISTORY: Reason for Exam: chest pain FINDINGS: Similar heart size, mildly enlarged. There is no appreciable pneumothorax, pleural effusion, or vascular congestion. No focal consolidations. No acute skeletal abnormality is evident. IMPRESSION: 1. No evidence of acute cardiopulmonary process. Interpreted by: Ayush French DO Preliminary Report By: Ayush French DO Electronically signed By Ayush French DO Dictated Date: 07/16/2023 12:36:54 PM Prelim Date: 07/16/2023 12:38:00 PM Sign Date: 07/16/2023 12:38:00 PM Ordering Provider: YENNI MIRANDADomitila Normal [facility]) ALDOSon 07-15-2023 Aldosterone 8.9 ng/dL Normal 0.0-<35.4 [facility]) Comment on above: Result Comment: The reference interval for serum/plasma aldosterone is based on a normal sodium intake and upright position. High sodium intake may suppress aldosterone and low sodium intake may increase aldosterone. The supine reference interval is <23.7 ng/dL. A ratio of aldosterone in ng/dL to direct renin in pg/mL greater than or equal to 3.8 is a positive screening test result for primary aldosteronism, when aldosterone is greater than or equal to 15 ng/dL. Performed By: [facility] [email or web address] [address] [place] [address] Labor And Delivery Nurse: Prosper Sanchez III, M.D. CLIA#: [id number] Performed By: #### D DORENEU #### [facility] [address] [place] [address] Absolute lymphocyte countOrd ered By: Jose Dunn on 07-15-2023 Lymphocytes Auto (Unsp spec) [#/Vol] 1.87 10*3/uL 0.83-4.51 [facility] Basophil percentageOrdered B y: Jose Dunn on 07-15-2023 Basophils/100 WBC (Bld) 1.1 % 0-1 [facility] Chloride [Moles/Vol] 109 mmol/L 98-107 [facility] Eosinophils/100 WBC (Bld) 7.5 % 0-5 [facility] Glucose [Mass/Vol] 138 mg/dL 74-106 [facility] Comment on above: Fasting Glucose resu lt greater than or equal to 126 mg/dL suggests DIABETES MELLITUS per A.D.A. criteria. Neutrophils (Bld) [#/Vol] 6.5 10*3/uL 2.0-7.7 [facility] Neutrophils/100 WBC (Bld) 64.7 % 47-70 [facility] Potassium [Moles/Vol] 4.2 mmol/L 3.5-5.1 [facility] Sodium [Moles/Vol] 141 mmol/L 136-145 [facility] WBC (Bld) [#/Vol] 10.0 10*3/uL 4.4-11.0 [facility] Blood erythrocytes count (nu mber/volume)Ordered By: Jose Dunn on 07-15-2023 RBC (Bld) [#/Vol] 5.65 10*6/uL 4.6-6.2 [facility] Blood hemoglobin measurement (mass/volume)Ordered By: Jose Dunn on 07-15-2023 Hemoglobin (Bld) [Mass/Vol] 16.5 g/dL 13.0-16.5 [facility] Blood lymphocytes/100 leukoc ytesOrdered By: Jose Dunn on 07-15-2023 Lymphocytes/100 WBC (Bld) 18.6 % 19-41 [facility] Blood monocytes/100 leukocyt esOrdered By: Jose Dunn on 07-15-2023 Monocytes/100 WBC (Bld) 7.6 % 0-10 [facility] Blood platelet mean volumeOr dered By: Jose Dunn on 07-15-2023 Platelet mean volume (Bld) [Entitic vol] 11.6 fL 6.2-12.0 [facility] Determination of erythrocyte mean corpuscular volume (MCV)Ordered By: Jose Dunn on 07-15-2023 MCV (RBC) [Entitic vol] 82.1 fL 80-94 [facility] Hematocrit Auto (Bld) [Volum e fraction]Ordered By: Jose Dunn on 07-15-2023 Hematocrit (Bld) [Volume fraction] 46.4 % 40-54 [facility] INR in Blood by Coagulation assayOrdered By: Jose Dunn on 07-15-2023 INR Coag (Bld) [Relative time] 1.0 {INR} [facility] Laboratory - Chemistry and C hemistry - challengeOrdered By: Jose Dunn on 07-15-2023 CO2 [Moles/Vol] 20.0 mmol/L 21.0-32.0 [facility] Urea nitrogen/Creatinine [Mass ratio] 13.1 mg/mg 10-20 [facility] Laboratory - CoagulationOrde red By: Jose Dunn on 07-15-2023 aPTT Coag (Bld) [Time] 27.7 s 24.1-36.2 [facility] PT Coag (PPP) [Time] 12.7 s 11.7-14.9 [facility] Laboratory - Hematology and Cell countsOrdered By: Jose Dunn on 07-15-2023 Erythrocyte distribution width (RBC) [Entitic vol] 37.5 fL 35.1-43.9 [facility] Erythrocyte distribution width (RBC) [Ratio] 12.8 % 11.6-14.6 [facility] Immature granulocytes/100 WBC (Bld) 0.500 % 0.0-0.9 [facility] Comment on above: IG% - Immature Granu locytes (promyelocytes, myelocytes and metamyelocytes) > 1% indicates that a LEFT SHIFT is Present. MCH (RBC) [Entitic mass] 29.2 pg 27.0-32.0 [facility] Nucleated RBC/100 WBC (Bld) [Ratio] 0 % 0-5 [facility] Lower GI hemoglobin IA Ql (S tl)Ordered By: Jose Dunn on 07-15-2023 Stool Occult Blood (ROSANA) Positive [facility] MCHC Auto (RBC) [Mass/Vol]Or dered By: Jose Dunn on 07-15-2023 MCHC (RBC) [Mass/Vol] 35.6 g/dL 32-36 [facility] No Panel InformationOrdered By: Jose Dunn on 07-15-2023 Troponin I High Sensitivity 120 pg/mL 3.0-78.0 [facility] Comment on above: Please Note: New [place] t Units and Gender Specific Reference Ranges. For more information see Policy Stat Procedure [place] High Sensitivity Troponin (TNIH) and attachments. D-Dimer Quantitative (PE/DVT) 0.37 FEU/ug/m 0.27-0.49 [facility] Comment on above: NORMAL D-Dimer level (<0.50) indicates no DVT or PE. Estimated Creatinine Clearance Calc 101.56 ml/min [facility] Estimated GFR (MDRD) Amer 80 mL/min >60 [facility] Comment on above: GFR Calc Estimated GFR (MDRD) Non-Af Amer 66 mL/min >60 [facility] Comment on above: Non- GFR Calc Platelets bldOrdered By: Av Dunn on 07-15-2023 Platelets (Bld) [#/Vol] 286 10*3/uL 150-450 [facility] RENINDon 07-15-2023 Direct Renin 7.5 pg/mL Normal 4.2-52.2 [facility] ([place]) Comment on above: Result Comment: A ra yang of aldosterone in ng/dL to direct renin in pg/mL greater than or equal to 3.8 is a positive screening test result for primary aldosteronism, when aldosterone is greater than or equal to 15 ng/dL. The reference interval for direct renin is based on an upright position. The supine reference intervals are: Age <41 years: 3.2-33.2 pg/mL Age >=41 years: 2.5-45.1 pg/mL Performed By: [facility] [employer] [address] [place] [address] Labor And Delivery Nurse: Prosper Sanchez III, M.D. CLIA#: [id number] Performed By: #### D RUGU #### [facility] [address] [place] [address] Patient Upright or Supine Unknown Normal [facility] ([place]) Comment on above: Result Comment: Perf ormed By: [facility] [employer] [address] [place] [address] Labor And Delivery Nurse: Prosper Sanchez III, M.D. CLIA#: [id number] Performed By: #### D RUGU #### [facility] [address] [place] [address] Serum or plasma calcium toñito urement (mass/volume)Ordered By: Jose Dunn on 07-15-2023 Calcium [Mass/Vol] 9.3 mg/dL 8.5-10.1 [facility] Serum or plasma creatinine m easurement (mass/volume)Ordered By: Jose Dunn on 07-15-2023 Creatinine [Mass/Vol] 1.30 mg/dL 0.70-1.30 [facility] Comment on above: The validity of the calculated GFR & GFRAA in patients over 70 years has not been determined. Clinical correlation is essential. Serum or plasma urea nitroge n measurement (mass/volume)Ordered By: Jose Dunn on 07-15-2023 Urea nitrogen [Mass/Vol] 17 mg/dL 7-18 [facility] Thin prep Papanicolaou smear with manual screeningOrdered By: Jose Dunn on 07-15-2023 Thin prep Papanicolaou smear with manual screening 12 03-24 [facility] .Auto Diffon 07-13-2023 Basophil, Absolute 0.1 10 3/mcL Normal 0.0-0.3 [facility] ([place]) Comment on above: Performed By: #### P BNP #### [address] [address] Basophils/100 WBC (Bld) 0.9 % Normal 0.0-2.5 [facility] ([place]) Comment on above: Performed By: #### P BNP #### [address] [address] Eosinophil, Absolute 0.8 10 3/mcL High 0.0-0.7 [facility] ([place]) Comment on above: Performed By: #### P BNP #### [address] [address] Eosinophils/100 WBC (Bld) 7.8 % High 0.0-6.0 [facility] ([place]) Comment on above: Performed By: #### P BNP #### [address] [address] Lymphocyte, Absolute 1.6 10 3/mcL Normal 0.9-4.3 [facility] ([place] Comment on above: Performed By: #### P BNP #### [address] [address] Lymphocytes/100 WBC (Bld) 15.0 % Low 20.0-40.0 [facility] ([place] Comment on above: Performed By: #### P BNP #### [address] [address] Monocyte, Absolute 0.8 10 3/mcL Normal 0.1-1.4 [facility] ([place] Comment on above: Performed By: #### P BNP #### [address] [address] Monocytes/100 WBC (Bld) 7.9 % Normal 2.0-13.0 [facility] ([place] Comment on above: Performed By: #### P BNP #### [address] [address] Neutrophils/100 WBC (Bld) 68.4 % Normal 50.0-75.0 [facility] ([place] Comment on above: Performed By: #### P BNP #### [address] [address] .GFRon 07-13-2023 GFR >60 Normal [facility] ([place] Comment on above: Result Comment: GFR Population mean for , Non- Americans Ages 20-29 = 116 mL/min/1.73 sq.m. Ages 30-39 = 107 mL/min/1.73 sq.m. Ages 40-49 = 99 mL/min/1.73 sq.m. Ages 50-59 = 93 mL/min/1.73 sq.m. Ages 60-69 = 85 mL/min/1.73 sq.m. Ages 70+ = 75 mL/min/1.73 sq.m. Chronic Kidney Disease: Less than 60 mL/min/1.73 square meters End Stage Renal Disease: Less than 15 mL/min/1.73 square meters Performed By: #### P BNP #### [address] [address] GFR Non- >60 Normal [facility] ([place] Comment on above: Result Comment: GFR Population mean for , Non- Americans Ages 20-29 = 116 mL/min/1.73 sq.m. Ages 30-39 = 107 mL/min/1.73 sq.m. Ages 40-49 = 99 mL/min/1.73 sq.m. Ages 50-59 = 93 mL/min/1.73 sq.m. Ages 60-69 = 85 mL/min/1.73 sq.m. Ages 70+ = 75 mL/min/1.73 sq.m. Chronic Kidney Disease: Less than 60 mL/min/1.73 square meters End Stage Renal Disease: Less than 15 mL/min/1.73 square meters Performed By: #### P BNP #### [address] [address] .NEUABSon 07-13-2023 Neutrophil, Absolute 7.3 10 3/mcL Normal 2.3-8.1 [facility] ([place] Comment on above: Performed By: #### P BNP #### [address] [address] BMPon 07-13-2023 BUN/Creatinine Ratio 15.4 ratio Normal 10.0-22.0 [facility] ([place] Comment on above: Performed By: #### P BNP #### [address] [address] Calcium [Mass/Vol] 8.9 mg/dL Normal 8.7-10.4 [facility] ([place] Comment on above: Performed By: #### P BNP #### [place] [id number] Chloride [Moles/Vol] 107 mmol/L Normal 98-110 [facility] ([place] Comment on above: Performed By: #### P BNP #### [place] [address] CO2 [Moles/Vol] 20 mmol/L Low 22-32 [facility] ([place] Comment on above: Performed By: #### P BNP #### [place] [address] Creatinine [Mass/Vol] 1.04 mg/dL Normal 0.60-1.40 [facility] ([place] Comment on above: Performed By: #### P BNP #### [place] [address] Electrolyte Balance 16.0 mEq/L High 4.0-15.0 [facility] ([place] Comment on above: Performed By: #### P BNP #### [address] [address] Glucose [Mass/Vol] 107 mg/dL Normal 70-110 [facility] ([place] Comment on above: Performed By: #### P BNP #### [place] [id number] Potassium [Moles/Vol] 4.5 mmol/L Normal 3.5-5.0 [facility] ([place] Comment on above: Result Comment: Spec imen slightly hemolyzed. Performed By: #### P BNP #### [address] [address] Sodium [Moles/Vol] 143 mmol/L Normal 136-145 [facility] ([place] Comment on above: Performed By: #### P BNP #### [place] [id number] Urea nitrogen [Mass/Vol] 16.0 mg/dL Normal 8.0-22.0 [facility] ([place] Comment on above: Performed By: #### P BNP #### [address] [address] CBCon 07-13-2023 Erythrocyte distribution width (RBC) [Ratio] 13.5 % Normal 11.5-15.5 [facility] ([place] Comment on above: Performed By: #### P BNP #### [place] [id number] Hematocrit (Bld) [Volume fraction] 47.7 % Normal 40.0-52.0 [facility] ([place] Comment on above: Performed By: #### P BNP #### [place] [id number] Hgb 16.5 G/dL Normal 13.0-17.5 [facility] ([place] Comment on above: Performed By: #### P BNP #### [place] [id number] MCH (RBC) [Entitic mass] 29.4 pg Normal 27.0-33.0 [facility] ([place] Comment on above: Performed By: #### P BNP #### [place] [address] MCHC 34.6 G/dL Normal 32.0-36.0 [facility] ([place] Comment on above: Performed By: #### P BNP #### [place] [id number] MCV (RBC) [Entitic vol] 84.7 fL Normal 81.0-100.0 [facility] ([place] Comment on above: Performed By: #### P BNP #### [address] [address] Platelet 273 10 3/mcL Normal 150-450 [facility] ([place] Comment on above: Performed By: #### P BNP #### [address] [address] Platelet mean volume (Bld) [Entitic vol] 9.2 fL Normal 6.4-10.5 [facility] ([place] Comment on above: Performed By: #### P BNP #### [place] [id number] RBC 5.63 10 6/mcL Normal 4.50-6.00 [facility] ([place] Comment on above: Performed By: #### P BNP #### [place] [id number] WBC 10.6 10 3/mcL Normal 4.5-10.8 [facility] ([place] Comment on above: Performed By: #### P BNP #### [place] [address] LABORATORYOrdered By: SYSTEM SYSTEM on 07-13-2023 Basophils (Bld) [#/Vol] 0.1 103/mcL Invalid Interpretation Code 0.0 - 0.3 10^3/mcL Workflow SS Basophils/100 WBC (Bld) 0.9 % Invalid Interpretation Code 0.0 - 2.5 % Workflow SS Calcium [Mass/Vol] 8.9 mg/dL Invalid Interpretation Code 8.7 - 10.4 mg/dL ADM SS Chloride [Moles/Vol] 107 mmol/L Invalid Interpretation Code 98 - 110 mEq/L ADM SS CO2 [Moles/Vol] 20 mmol/L Invalid Interpretation Code 22 - 32 mEq/L ADM SS Creatinine [Mass/Vol] 1.04 mg/dL Invalid Interpretation Code 0.60 - 1.40 mg/dL ADM SS Electrolyte Balance 16.0 mEq/L Invalid Interpretation Code 4.0 - 15.0 mEq/L ADM SS Eosinophils (Bld) [#/Vol] 0.8 103/mcL Invalid Interpretation Code 0.0 - 0.7 10^3/mcL AH Workflow SS Eosinophils/100 WBC (Bld) 7.8 % Invalid Interpretation Code 0.0 - 6.0 % AH Workflow SS Erythrocyte distribution width (RBC) [Ratio] 13.5 % Invalid Interpretation Code 11.5 - 15.5 % Workflow SS GFR/1.73 sq M.predicted among blacks MDRD (S/P/Bld) [Vol rate/Area] ml/min/1.73sqm Invalid Interpretation Code [facility] Comment on above: Interpretive Data: GFR Population mean for , Non- Americans Ages 20-29 = 116 mL/min/1.73 sq.m. Ages 30-39 = 107 mL/min/1.73 sq.m. Ages 40-49 = 99 mL/min/1.73 sq.m. Ages 50-59 = 93 mL/min/1.73 sq.m. Ages 60-69 = 85 mL/min/1.73 sq.m. Ages 70+ = 75 mL/min/1.73 sq.m. Chronic Kidney Disease: Less than 60 mL/min/1.73 square meters End Stage Renal Disease: Less than 15 mL/min/1.73 square meters GFR/1.73 sq M.predicted among non-blacks MDRD (S/P/Bld) [Vol rate/Area] ml/min/1.73sqm Invalid Interpretation Code [facility] Comment on above: Interpretive Data: GFR Population mean for , Non- Americans Ages 20-29 = 116 mL/min/1.73 sq.m. Ages 30-39 = 107 mL/min/1.73 sq.m. Ages 40-49 = 99 mL/min/1.73 sq.m. Ages 50-59 = 93 mL/min/1.73 sq.m. Ages 60-69 = 85 mL/min/1.73 sq.m. Ages 70+ = 75 mL/min/1.73 sq.m. Chronic Kidney Disease: Less than 60 mL/min/1.73 square meters End Stage Renal Disease: Less than 15 mL/min/1.73 square meters Glucose [Mass/Vol] 107 mg/dL Invalid Interpretation Code 70 - 110 mg/dL ADM Hematocrit (Bld) [Volume fraction] 47.7 % Invalid Interpretation Code 40.0 - 52.0 % Workflow Hemoglobin (Bld) [Mass/Vol] 16.5 G/dL Invalid Interpretation Code 13.0 - 17.5 G/dL Workflow Lymphocytes (Bld) [#/Vol] 1.6 103/mcL Invalid Interpretation Code 0.9 - 4.3 10^3/mcL AH Workflow SS Lymphocytes/100 WBC (Bld) 15.0 % Invalid Interpretation Code 20.0 - 40.0 % AH Workflow SS Magnesium [Mass/Vol] 1.9 mg/dL Invalid Interpretation Code 1.6 - 2.4 mg/dL AH ADM SS MCH (RBC) [Entitic mass] 29.4 pg Invalid Interpretation Code 27.0 - 33.0 pg AH Workflow SS MCHC 34.6 G/dL Invalid Interpretation Code 32.0 - 36.0 G/dL AH Workflow SS MCV (RBC) [Entitic vol] 84.7 fL Invalid Interpretation Code 81.0 - 100.0 fL Workflow SS Monocytes (Bld) [#/Vol] 0.8 103/mcL Invalid Interpretation Code 0.1 - 1.4 10^3/mcL AH Workflow SS Monocytes/100 WBC (Bld) 7.9 % Invalid Interpretation Code 2.0 - 13.0 % AH Workflow SS Neutrophils (Bld) [#/Vol] 7.3 103/mcL Invalid Interpretation Code 2.3 - 8.1 10^3/mcL AH Workflow SS Neutrophils/100 WBC (Bld) 68.4 % Invalid Interpretation Code 50.0 - 75.0 % AH Workflow SS Platelet mean volume (Bld) [Entitic vol] 9.2 fL Invalid Interpretation Code 6.4 - 10.5 fL AH Workflow SS Platelets (Bld) [#/Vol] 273 103/mcL Invalid Interpretation Code 150 - 450 10^3/mcL AH Workflow SS Potassium [Moles/Vol] 4.5 mmol/L Invalid Interpretation Code 3.5 - 5.0 mEq/L ADM SS Comment on above: Result Comment: Spec imen slightly hemolyzed. RBC (Bld) [#/Vol] 5.63 106/mcL Invalid Interpretation Code 4.50 - 6.00 10^6/mcL AH Workflow SS Sodium [Moles/Vol] 143 mmol/L Invalid Interpretation Code 136 - 145 mEq/L ADM SS Urea nitrogen [Mass/Vol] 16.0 mg/dL Invalid Interpretation Code 8.0 - 22.0 mg/dL ADM SS Urea nitrogen/Creatinine [Mass ratio] 15.4 ratio Invalid Interpretation Code 10.0 - 22.0 ratio AH ADM SS WBC (Bld) [#/Vol] 10.6 103/mcL Invalid Interpretation Code 4.5 - 10.8 10^3/mcL AH Workflow SS MGon 07-13-2023 Magnesium [Mass/Vol] 1.9 mg/dL Normal 1.6-2.4 [facility] ([place]) Comment on above: Performed By: #### P BNP #### [address] [address] .Auto Diffon 07-12-2023 Basophil, Absolute 0.1 10 3/mcL Normal 0.0-0.3 [facility] ([place]) Comment on above: Performed By: #### T ROPMADI #### [address] [address] Basophils/100 WBC (Bld) 0.9 % Normal 0.0-2.5 [facility] ([place]) Comment on above: Performed By: #### T ANGELI #### [address] [address] Eosinophil, Absolute 0.8 10 3/mcL High 0.0-0.7 [facility] ([place] Comment on above: Performed By: #### T ROPMADI #### [address] [address] Eosinophils/100 WBC (Bld) 8.5 % High 0.0-6.0 [facility] ([place]) Comment on above: Performed By: #### T ANGELI #### [address] [address] Lymphocyte, Absolute 1.3 10 3/mcL Normal 0.9-4.3 [facility] ([place]) Comment on above: Performed By: #### T ROPMADI #### [address] [address] Lymphocytes/100 WBC (Bld) 13.6 % Low 20.0-40.0 [facility] ([place]) Comment on above: Performed By: #### T ROPMADI #### [address] [address] Monocyte, Absolute 0.7 10 3/mcL Normal 0.1-1.4 [facility] ([place]) Comment on above: Performed By: #### T ANGELI #### [address] [address] Monocytes/100 WBC (Bld) 7.1 % Normal 2.0-13.0 [facility] ([place] Comment on above: Performed By: #### T ANGELI #### [address] [address] Neutrophils/100 WBC (Bld) 69.9 % Normal 50.0-75.0 [facility] ([place] Comment on above: Performed By: #### T ANGELI #### [address] [address] .GFRon 07-12-2023 GFR >60 Normal [facility] ([place]) Comment on above: Result Comment: GFR Population mean for , Non- Americans Ages 20-29 = 116 mL/min/1.73 sq.m. Ages 30-39 = 107 mL/min/1.73 sq.m. Ages 40-49 = 99 mL/min/1.73 sq.m. Ages 50-59 = 93 mL/min/1.73 sq.m. Ages 60-69 = 85 mL/min/1.73 sq.m. Ages 70+ = 75 mL/min/1.73 sq.m. Chronic Kidney Disease: Less than 60 mL/min/1.73 square meters End Stage Renal Disease: Less than 15 mL/min/1.73 square meters Performed By: #### T ANGELI #### [address] [address] GFR Non- >60 Normal [facility] ([place]) Comment on above: Result Comment: GFR Population mean for , Non- Americans Ages 20-29 = 116 mL/min/1.73 sq.m. Ages 30-39 = 107 mL/min/1.73 sq.m. Ages 40-49 = 99 mL/min/1.73 sq.m. Ages 50-59 = 93 mL/min/1.73 sq.m. Ages 60-69 = 85 mL/min/1.73 sq.m. Ages 70+ = 75 mL/min/1.73 sq.m. Chronic Kidney Disease: Less than 60 mL/min/1.73 square meters End Stage Renal Disease: Less than 15 mL/min/1.73 square meters Performed By: #### T ANGELI #### [address] [address] .NEUABSon 07-12-2023 Neutrophil, Absolute 6.8 10 3/mcL Normal 2.3-8.1 [facility] ([place] Comment on above: Performed By: #### T ANGELI #### [address] [address] ACEon 07-12-2023 Angiotensin Conv Enzyme 37 U/L Normal <=52 [facility] ([place]) Comment on above: Result Comment: Lori ficially low LENA levels may be found for patients taking LENA inhibitors or after the administration of gadolinium. This test was developed and its performance characteristics determined by [facility] [place] ([facility]). It has not been cleared or approved by the FDA. [facility] is regulated under CLIA as qualified to perform high-complexity testing. This test is used for clinical purposes. It should not be regarded as investigational or for research. Performed By: [facility] [address] [place] [address] Labor And Delivery Nurse: Prosper Sanchez III, M.D. CLIA#: [id number] Performed By: #### A KIRAN #### [facility] [address] [place], [place] [address] BMPon 07-12-2023 BUN/Creatinine Ratio 15.0 ratio Normal 10.0-22.0 [facility] ([place]) Comment on above: Performed By: #### T ANGELI #### [address] [address] Calcium [Mass/Vol] 8.7 mg/dL Normal 8.7-10.4 [facility] ([place]) Comment on above: Performed By: #### T ANGELI #### [address] [address] Chloride [Moles/Vol] 109 mmol/L Normal 98-110 [facility] ([place]) Comment on above: Performed By: #### T ANGELI #### [place] [id number] CO2 [Moles/Vol] 22 mmol/L Normal 22-32 [facility] ([place] Comment on above: Performed By: #### T ANGELI #### [place] [id number] Creatinine [Mass/Vol] 1.13 mg/dL Normal 0.60-1.40 [facility] ([place]) Comment on above: Performed By: #### T ANGELI #### [place] [id number] Electrolyte Balance 12.0 mEq/L Normal 4.0-15.0 [facility] ([place]) Comment on above: Performed By: #### T ANGELI #### [place] [id number] Glucose [Mass/Vol] 108 mg/dL Normal 70-110 [facility] ([place]) Comment on above: Performed By: #### T ANGELI #### [place] [id number] Potassium [Moles/Vol] 4.2 mmol/L Normal 3.5-5.0 [facility] ([place]) Comment on above: Result Comment: Spec imen slightly hemolyzed. Performed By: #### T ANGELI #### [place] [id number] Sodium [Moles/Vol] 143 mmol/L Normal 136-145 [facility] ([place]) Comment on above: Performed By: #### T ANGELI #### [place] [id number] Urea nitrogen [Mass/Vol] 17.0 mg/dL Normal 8.0-22.0 [facility] ([place] Comment on above: Performed By: #### T ANGELI #### [place] [id number] CBCon 07-12-2023 Erythrocyte distribution width (RBC) [Ratio] 13.6 % Normal 11.5-15.5 [facility] ([place]) Comment on above: Performed By: #### H H #### [place] [id number] Hematocrit (Bld) [Volume fraction] 44.9 % Normal 40.0-52.0 [facility] ([place] Comment on above: Performed By: #### H H #### [place] [address] Hgb 15.3 G/dL Normal 13.0-17.5 [facility] ([place] Comment on above: Performed By: #### H H #### [place] [address] MCH (RBC) [Entitic mass] 29.2 pg Normal 27.0-33.0 [facility] ([place] Comment on above: Performed By: #### H H #### [place] [address] MCHC 34.0 G/dL Normal 32.0-36.0 [facility] ([place] Comment on above: Performed By: #### H H #### [place] [address] MCV (RBC) [Entitic vol] 85.8 fL Normal 81.0-100.0 [facility] ([place] Comment on above: Performed By: #### H H #### [place] [address] Platelet 239 10 3/mcL Normal 150-450 [facility] ([place] Comment on above: Performed By: #### H H #### [place] [address] Platelet mean volume (Bld) [Entitic vol] 9.2 fL Normal 6.4-10.5 [facility] ([place] Comment on above: Performed By: #### H H #### [place] [id number] RBC 5.23 10 6/mcL Normal 4.50-6.00 [facility] ([place] Comment on above: Performed By: #### H H #### [place] [address] WBC 9.7 10 3/mcL Normal 4.5-10.8 [facility] ([place]) Comment on above: Performed By: #### H H #### [place] [address] LABORATORYOrdered By: SYSTEM SYSTEM on 07-12-2023 Basophils (Bld) [#/Vol] 0.1 103/mcL Invalid Interpretation Code 0.0 - 0.3 10^3/mcL AH Workflow SS Basophils/100 WBC (Bld) 0.9 % Invalid Interpretation Code 0.0 - 2.5 % AH Workflow SS Calcium [Mass/Vol] 8.7 mg/dL Invalid Interpretation Code 8.7 - 10.4 mg/dL AH ADM SS Chloride [Moles/Vol] 109 mmol/L Invalid Interpretation Code 98 - 110 mEq/L AH ADM SS CO2 [Moles/Vol] 22 mmol/L Invalid Interpretation Code 22 - 32 mEq/L AH ADM SS Creatinine [Mass/Vol] 1.13 mg/dL Invalid Interpretation Code 0.60 - 1.40 mg/dL AH ADM SS Electrolyte Balance 12.0 mEq/L Invalid Interpretation Code 4.0 - 15.0 mEq/L AH ADM SS Eosinophils (Bld) [#/Vol] 0.8 103/mcL Invalid Interpretation Code 0.0 - 0.7 10^3/mcL AH Workflow SS Eosinophils/100 WBC (Bld) 8.5 % Invalid Interpretation Code 0.0 - 6.0 % AH Workflow SS Erythrocyte distribution width (RBC) [Ratio] 13.6 % Invalid Interpretation Code 11.5 - 15.5 % AH Workflow SS GFR/1.73 sq M.predicted among blacks MDRD (S/P/Bld) [Vol rate/Area] ml/min/1.73sqm Invalid Interpretation Code AH ADM SS Comment on above: Interpretive Data: GFR Population mean for , Non- Americans Ages 20-29 = 116 mL/min/1.73 sq.m. Ages 30-39 = 107 mL/min/1.73 sq.m. Ages 40-49 = 99 mL/min/1.73 sq.m. Ages 50-59 = 93 mL/min/1.73 sq.m. Ages 60-69 = 85 mL/min/1.73 sq.m. Ages 70+ = 75 mL/min/1.73 sq.m. Chronic Kidney Disease: Less than 60 mL/min/1.73 square meters End Stage Renal Disease: Less than 15 mL/min/1.73 square meters GFR/1.73 sq M.predicted among non-blacks MDRD (S/P/Bld) [Vol rate/Area] ml/min/1.73sqm Invalid Interpretation Code ADM SS Comment on above: Interpretive Data: GFR Population mean for , Non- Americans Ages 20-29 = 116 mL/min/1.73 sq.m. Ages 30-39 = 107 mL/min/1.73 sq.m. Ages 40-49 = 99 mL/min/1.73 sq.m. Ages 50-59 = 93 mL/min/1.73 sq.m. Ages 60-69 = 85 mL/min/1.73 sq.m. Ages 70+ = 75 mL/min/1.73 sq.m. Chronic Kidney Disease: Less than 60 mL/min/1.73 square meters End Stage Renal Disease: Less than 15 mL/min/1.73 square meters Glucose [Mass/Vol] 108 mg/dL Invalid Interpretation Code 70 - 110 mg/dL ADM SS Hematocrit (Bld) [Volume fraction] 44.9 % Invalid Interpretation Code 40.0 - 52.0 % Workflow SS Hemoglobin (Bld) [Mass/Vol] 15.3 G/dL Invalid Interpretation Code 13.0 - 17.5 G/dL Workflow SS Lymphocytes (Bld) [#/Vol] 1.3 103/mcL Invalid Interpretation Code 0.9 - 4.3 10^3/mcL AH Workflow SS Lymphocytes/100 WBC (Bld) 13.6 % Invalid Interpretation Code 20.0 - 40.0 % Workflow SS Magnesium [Mass/Vol] 1.9 mg/dL Invalid Interpretation Code 1.6 - 2.4 mg/dL ADM SS MCH (RBC) [Entitic mass] 29.2 pg Invalid Interpretation Code 27.0 - 33.0 pg AH Workflow SS MCHC 34.0 G/dL Invalid Interpretation Code 32.0 - 36.0 G/dL Workflow SS MCV (RBC) [Entitic vol] 85.8 fL Invalid Interpretation Code 81.0 - 100.0 fL Workflow SS Monocytes (Bld) [#/Vol] 0.7 103/mcL Invalid Interpretation Code 0.1 - 1.4 10^3/mcL Workflow SS Monocytes/100 WBC (Bld) 7.1 % Invalid Interpretation Code 2.0 - 13.0 % AH Workflow SS Neutrophils (Bld) [#/Vol] 6.8 103/mcL Invalid Interpretation Code 2.3 - 8.1 10^3/mcL AH Workflow SS Neutrophils/100 WBC (Bld) 69.9 % Invalid Interpretation Code 50.0 - 75.0 % AH Workflow SS Platelet mean volume (Bld) [Entitic vol] 9.2 fL Invalid Interpretation Code 6.4 - 10.5 fL AH Workflow SS Platelets (Bld) [#/Vol] 239 103/mcL Invalid Interpretation Code 150 - 450 10^3/mcL AH Workflow SS Potassium [Moles/Vol] 4.2 mmol/L Invalid Interpretation Code 3.5 - 5.0 mEq/L AH ADM SS Comment on above: Result Comment: Spec imen slightly hemolyzed. RBC (Bld) [#/Vol] 5.23 106/mcL Invalid Interpretation Code 4.50 - 6.00 10^6/mcL AH Workflow SS Sodium [Moles/Vol] 143 mmol/L Invalid Interpretation Code 136 - 145 mEq/L AH ADM SS Urea nitrogen [Mass/Vol] 17.0 mg/dL Invalid Interpretation Code 8.0 - 22.0 mg/dL AH ADM SS Urea nitrogen/Creatinine [Mass ratio] 15.0 ratio Invalid Interpretation Code 10.0 - 22.0 ratio AH ADM SS WBC (Bld) [#/Vol] 9.7 103/mcL Invalid Interpretation Code 4.5 - 10.8 10^3/mcL Workflow SS MGon 07-12-2023 Magnesium [Mass/Vol] 1.9 mg/dL Normal 1.6-2.4 [facility] ([place]) Comment on above: Performed By: #### T ROPHS #### [facility] [address] [place] [address] A1Con 07-11-2023 HbA1c (Bld) [Mass fraction] 5.5 % Normal 4.0-6.0 [facility] ([place]) Comment on above: Performed By: #### P BNP #### [facility] [address] [place] [address] ANAon 07-11-2023 Nuclear Ab IF (S) [Titer] 40 {titer} Normal Neg 40 [facility] ([place]) Comment on above: Result Comment: TUSHAR Screen and Titer methodology is an immunofluorescent technique utilizing Hep2 Substrate. Performed By: #### D RUGU #### [facility] [address] [place], [place] [address] APTTon 07-11-2023 aPTT Coag (Bld) [Time] 93.7 s High 25.0-35.0 [facility] ([place]) Comment on above: Performed By: #### A PTT #### [facility] [address] [place], [place] [address] Heparin dose (APTT) Heparin IV Normal [facility] ([place]) Comment on above: Performed By: #### A PTT #### [facility] [address] [place], [place] [address] aPTT Coag (Bld) [Time] 37.1 s High 25.0-35.0 [facility] ([place]) Comment on above: Performed By: #### A PTT ####[facility] [place], [place] [address] Heparin dose (APTT) Heparin IV Normal [facility] ([place]) Comment on above: Performed By: #### A PTT ####[facility] [place], [place] [address] aPTT Coag (Bld) [Time] 40.2 s High 25.0-35.0 [facility] ([place]) Comment on above: Performed By: #### D RUGU #### [facility] [address] [place], [place] [address] Heparin dose (APTT) Unknown Normal [facility] ([place] Comment on above: Performed By: #### D RUGU #### [facility] [address] [place], [place] [address] aPTT Coag (Bld) [Time] 31.9 s Normal 25.0-35.0 [facility] ([place]) Comment on above: Result Comment: For Heparin anticoagulation therapy, the recommended therapeutic range is: 50.6-87.4 seconds. Patients on heparin therapy may have an extreme result. Performed By: #### H H #### [address], [place] [address] Heparin dose (APTT) None Normal [facility] ([place]) Comment on above: Performed By: #### H H #### [address] [address] [address] ANGIOGRAPHY CHEST W/CONTR [place] 07-11-2023 CT ANGIOGRAPHY CHEST W/CONTRAST ORIGINAL EXAMINATION: CTA OF THE CHEST 07/11/2023 12:17 am TECHNIQUE: CTA of the chest was performed after the administration of intravenous contrast. Multiplanar reformatted images are provided for review. MIP images are provided for review. Automated exposure control, iterative reconstruction, and/or weight based adjustment of the mA/kV was utilized to reduce the radiation dose to as low as reasonably achievable. COMPARISON: Chest x-ray 07/10/2023 HISTORY: ORDERING SYSTEM PROVIDED HISTORY: Reason for Exam: Elev D-dimer, BNP, Trop, and HR. HTN chest pain; suspect PE FINDINGS: Pulmonary Arteries: Pulmonary arteries are adequately opacified for evaluation. No evidence of intraluminal filling defect to suggest pulmonary embolism. Main pulmonary artery is normal in caliber. Mediastinum: There is mild enlargement of mediastinal and hilar lymph nodes. Right paratracheal lymph node is 1.5 cm. Subcarinal lymph node on image 98 is 2.1 cm. There are bilateral hilar lymph nodes that measure 1.5 cm. The heart is mildly enlarged in a generalized manner. There is no pericardial fluid. Thoracic aorta is nonaneurysmal. Lungs/pleura: There is no airspace disease. There is a tree in bud type infiltrate with small nodules that range up to 5 mm in diameter localized laterally in the right lower lobe. (Series 601 image 86. No pleural fluid or pneumothorax is present. Upper Abdomen: Limited images of the upper abdomen are unremarkable. The spleen is not enlarged. Soft Tissues/Bones: No acute bone or soft tissue abnormality. IMPRESSION: No pulmonary embolism. Mildly enlarged mediastinal and hilar lymph nodes. This may be due to sarcoid, lymphoma, or other neoplasm. Follow-up is recommended. Mild cardiomegaly. Small cluster of tree-in-bud nodules in the right lower lobe may be infectious or inflammatory. Interpreted by: Dylan Myers MD Preliminary Report By: Dylan Myers MD Electronically signed By Dylan Myers MD Dictated Date: 07/11/2023 12:19:43 AM Prelim Date: 07/11/2023 12:27:28 AM Sign Date: 07/11/2023 12:27:28 AM Ordering Provider: EDILMA RUBY Normal [facility] ([place]) DRUGUon 07-11-2023 Amphetamine (u) Positive Abnormal Negative [facility] ([place]) Comment on above: Performed By: #### D RUGU #### [facility] [address] [place], [place] [address] Barbiturate (u) Negative Normal Negative [facility] ([place]) Comment on above: Performed By: #### D RUGU #### [facility] [address] [place], [place] [address] Benzodiazepine (u) Negative Normal Negative [facility] ([place]) Comment on above: Performed By: #### D RUGU #### [facility] [address] [place], [place] [address] Cannabinoid (u) Negative Normal Negative [facility] ([place]) Comment on above: Performed By: #### D RUGU #### [facility] [address] [place], [place] [address] Cocaine Ql (U) Negative Normal Negative [facility] ([place] Comment on above: Performed By: #### D RUGU #### [facility] [address] [place], [place] [address] Fentanyl (u) Negative Normal Negative [facility] ([place]) Comment on above: Result Comment: Test ing has been performed FOR MEDICAL PURPOSES ONLY. Performed By: #### D RUGU #### [facility] [address] [place], [place] [address] Methadone Ql (U) Negative Normal Negative [facility] ([place] Comment on above: Performed By: #### D RUGU #### [facility] [address] [place], [place] [address] Opiate (u) Negative Normal Negative [facility] ([place] Comment on above: Performed By: #### D RUGU #### [facility] [address] [place], [place] [address] Oxycodone (u) Negative Normal Negative [facility] ([place] Comment on above: Result Comment: Test ing has been performed FOR MEDICAL PURPOSES ONLY. Performed By: #### D RUGU #### [facility] [address] [place], [place] [address] PCP (u) Negative Normal Negative [facility] ([place] Comment on above: Performed By: #### D RUGU #### [facility] [address] [place], [place] [address] Propoxyphene (u) Negative Normal Negative [facility] ([place] Comment on above: Performed By: #### D RUGU #### [facility] [address] [place], [place] [address] U pH Drug Scrn 5.5 Normal 5.0-8.0 [facility] ([place] Comment on above: Performed By: #### D RUGU #### [facility] [address] [place], [place] [address] Urine Drugs screened: See Below Normal [facility] ([place]) Comment on above: Result Comment: This drug screen is a presumptive screening only. No confirmation will be performed unless requested. Drugs screened include: Threshold Amphetamines/Methamphetamines 1,000 ng/mL Barbiturates 200 ng/mL Benzodiazepine metabolites 200 ng/mL Cannabinoids (THC metabolites) 50 ng/mL Benzoylecognine (Cocaine metab) 300 ng/mL Opiates 300 ng/mL Phencyclidine (PCP) 25 ng/mL Methadone 300 ng/mL Propoxyphene 300 ng/mL Fentanyl 1.0 ng/mL Oxycodone 100 ng/mL Testing has been performed FOR MEDICAL PURPOSES ONLY. Performed By: #### D RUGU #### [facility] [address] [place], [place] [address] LABORATORYOrdered By: Reji Quesada on 07-11-2023 aPTT Coag (Bld) [Time] 93.7 s Invalid Interpretation Code 25.0 - 35.0 seconds [facility] SS Heparin dose (APTT) Heparin IV (07/11/23 8:21 PM) Invalid Interpretation Code AH Coagulation S LABORATORYOrdered By: Liset Moore on 07-11-2023 aPTT Coag (Bld) [Time] 37.1 s Invalid Interpretation Code 25.0 - 35.0 seconds [facility] SS Heparin dose (APTT) Heparin IV (07/11/23 11:04 AM) Invalid Interpretation Code AH Coagulation S LABORATORYOrdered By: ABDIRAHMAN SCANLON CONTRIBUTOR_SYSTEM on 07-11-2023 Sodium [Moles/Vol] 37 mmol/L Invalid Interpretation Code <=52 [facility] SS Comment on above: Result Comment: Lori ficially low LENA levels may be found for patients taking LENA inhibitors or after the administration of gadolinium. This test was developed and its performance characteristics determined by [facility] Path[facility] Laboratory Medicine [place] [facility] It has not been cleared or approved by the FDA. [facility] is regulated under CLIA as qualified to perform high-complexity testing. This test is used for clinical purposes. It should not be regarded as investigational or for research. Performed By: [facility] [address] [place] [address] Labor And Delivery Nurse: Prosper Sanchez III, M.D. CLIA#: [id number] LABORATORYOrdered By: SYSTEM SYSTEM on 07-11-2023 Troponin I.cardiac DL <= 0.01 ng/mL [Mass/Vol] 67.24 ng/L Invalid Interpretation Code 0.00 - 54.00 ng/L [facility] Comment on above: Interpretive Data: I f the High Sensitive Troponin result is below the 99th percentile value (<45 ng/L) at the first blood draw, at least two additional blood samples should be drawn before results are interpreted as negative for AMI. HbA1c (Bld) [Mass fraction] 5.5 % Invalid Interpretation Code 4.0 - 6.0 % Auto Chem SS LDH Lactate to pyruvate reaction [Catalytic activity/Vol] 324 1 Invalid Interpretation Code 120 - 246 U/L ADM SS Magnesium [Mass/Vol] 1.8 mg/dL Invalid Interpretation Code 1.6 - 2.4 mg/dL ADM Troponin I.cardiac DL <= 0.01 ng/mL [Mass/Vol] 78.40 ng/L Invalid Interpretation Code 0.00 - 54.00 ng/L ADM SS Comment on above: Interpretive Data: I f the High Sensitive Troponin result is below the 99th percentile value (<45 ng/L) at the first blood draw, at least two additional blood samples should be drawn before results are interpreted as negative for AMI. TSH Qn 1.290 mIU/mL Invalid Interpretation Code 0.550 - 4.780 mIU/mL AH ADM SS Comment on above: Interpretive Data: * *Note - New Reference Range in effect 20 LABORATORYOrdered By: Marcio Petersen on 07-11-2023 aPTT Coag (Bld) [Time] 40.2 s Invalid Interpretation Code 25.0 - 35.0 seconds [facility] SS Heparin dose (APTT) Unknown (07/11/23 4:34 AM) Invalid Interpretation Code Coagulation S PT Coag (PPP) [Time] 11.8 s Invalid Interpretation Code 9.0 - 14.2 seconds [facility] SS PT International Ratio 1.0 ratio Invalid Interpretation Code [facility] SS Comment on above: Interpretive Data: T ad [employer] (CHEST, 1991, 102:[id number]) recommended therapeutic range for oral anticoagulant therapy is: LOW RISK: Prophylaxis of venous thrombosis INR: 2.0-3.0 Treatment of pulmonary embolism 2.0-3.0 Prevention of systemic embolism 2.0-3.0 HIGH RISK: Mechanical prosthetic valves 2.5-3.5 LABORATORYOrdered By: Wood Romero on 07-11-2023 Cholesterol [Mass/Vol] 176 mg/dL Invalid Interpretation Code 50 - 199 mg/dL ADM SS Comment on above: Interpretive Data: C holesterol Reference Interval: Less than 200 Desirable 200-239 Borderline high risk 240 and above High risk Cholesterol in HDL [Mass/Vol] 31 mg/dL Invalid Interpretation Code 40 - 59 mg/dL ADM SS Cholesterol in LDL [Mass/Vol] 104 mg/dL Invalid Interpretation Code 0 - 129 mg/dL ADM SS Triglyceride [Mass/Vol] 206 mg/dL Invalid Interpretation Code 3 - 149 mg/dL ADM SS pH (U) 5.5 [pH] Invalid Interpretation Code 5.0 - 8.0 Chemistry S Urine Drugs screened: See Below 11 (07/11/23 4:24 AM) Invalid Interpretation Code Chemistry S Comment on above: Interpretive Data: T his drug screen is a presumptive screening only. No confirmation will be performed unless requested. Drugs screened include: Threshold Amphetamines/Methamphetamines 1,000 ng/mL Barbiturates 200 ng/mL Benzodiazepine metabolites 200 ng/mL Cannabinoids (THC metabolites) 50 ng/mL Benzoylecognine (Cocaine metab) 300 ng/mL Opiates 300 ng/mL Phencyclidine (PCP) 25 ng/mL Methadone 300 ng/mL Propoxyphene 300 ng/mL Fentanyl 1.0 ng/mL Oxycodone 100 ng/mL Testing has been performed FOR MEDICAL PURPOSES ONLY. LABORATORYOrdered By: Joaquin Shen on 07-11-2023 Nuclear Ab IF Ql (S) Neg 40 5 (07/11/23 4:34 AM) Invalid Interpretation Code Neg 40 AH Man Viro/Sero SS Comment on above: Interpretive Data: A NA Screen and Titer methodology is an immunofluorescent technique utilizing Hep2 Substrate. LABORATORYOrdered By: Elisabeth anderson on 07-11-2023 Amphetamines Screen Ql (U) Positive *ABN* (07/11/23 4:24 AM) Invalid Interpretation Code Negative AH ADM SS Barbiturates Screen Ql (U) Negative *NA* (07/11/23 4:24 AM) Invalid Interpretation Code Negative AH ADM SS Benzodiazepines Ql (U) Negative *NA* (07/11/23 4:24 AM) Invalid Interpretation Code Negative AH ADM SS Benzoylecgonine Screen Ql (U) Negative *NA* (07/11/23 4:24 AM) Invalid Interpretation Code Negative AH ADM SS Cannabinoids Screen Ql (U) Negative *NA* (07/11/23 4:24 AM) Invalid Interpretation Code Negative AH ADM SS Creatinine (U) [Mass/Vol] 148.6 mg/dL Invalid Interpretation Code AH ADM SS fentaNYL Screen Ql (U) Negative 1 *NA* (07/11/23 4:24 AM) Invalid Interpretation Code Negative AH ADM SS Comment on above: Interpretive Data: T esting has been performed FOR MEDICAL PURPOSES ONLY. Methadone Screen Ql (U) Negative *NA* (07/11/23 4:24 AM) Invalid Interpretation Code Negative AH ADM SS Opiates Screen Ql (U) Negative *NA* (07/11/23 4:24 AM) Invalid Interpretation Code Negative AH ADM SS oxyCODONE Ql (U) Negative 2 *NA* (07/11/23 4:24 AM) Invalid Interpretation Code Negative AH ADM SS Comment on above: Interpretive Data: T esting has been performed FOR MEDICAL PURPOSES ONLY. Phencyclidine Ql (U) Negative *NA* (07/11/23 4:24 AM) Invalid Interpretation Code Negative AH ADM SS Propoxyphene Screen Ql (U) Negative *NA* (07/11/23 4:24 AM) Invalid Interpretation Code Negative AH ADM SS Protein (U) [Mass/Vol] 62.7 mg/dL Invalid Interpretation Code AH ADM SS U Ratio Prot/Creat 0.4 ratio Invalid Interpretation Code AH ADM SS LABORATORYOrdered By: Shahida Mariscal on 07-11-2023 Appearance (U) Clear (07/11/23 4:24 AM) Invalid Interpretation Code Clear AH Auto Urine SS Bilirubin Ql (U) Negative (07/11/23 4:24 AM) Invalid Interpretation Code Neg-Trace AH Auto Urine SS Color (U) Yellow (07/11/23 4:24 AM) Invalid Interpretation Code AH Auto Urine SS Glucose Test strip (U) [Mass/Vol] Negative Invalid Interpretation Code Negative AH Auto Urine SS Hemoglobin Auto test strip (U) [Mass/Vol] Negative (07/11/23 4:24 AM) Invalid Interpretation Code Neg-Trace AH Auto Urine SS Ketones Ql (U) Trace mg/dL Invalid Interpretation Code Neg-Trace AH Auto Urine SS UA Leuk Est Negative (07/11/23 4:24 AM) Invalid Interpretation Code Negative AH Auto Urine SS UA Nitrite Negative (07/11/23 4:24 AM) Invalid Interpretation Code Negative AH Auto Urine SS UA pH 6.0 (07/11/23 4:24 AM) Invalid Interpretation Code 5.0 - 8.0 AH Auto Urine SS UA Protein 30 mg/dL Invalid Interpretation Code Negative AH Auto Urine SS UA Spec Grav >=1.030 *ABN* (07/11/23 4:24 AM) Invalid Interpretation Code 1.006-1.029 AH Auto Urine SS UA Specimen Type Void (07/11/23 4:24 AM) Invalid Interpretation Code AH Auto Urine SS UA Urobilinogen 0.2 E.U./dL Invalid Interpretation Code 0.2-1.0 AH Auto Urine SS LABORATORYOrdered By: Nan Whitfield on 07-11-2023 aPTT Coag (PPP) [Time] 31.9 s Invalid Interpretation Code 25.0 - 35.0 seconds AO Hemo[facility] SS Comment on above: Interpretive Data: F or Heparin anticoagulation therapy, the recommended therapeutic range is: 50.6-87.4 seconds. Patients on heparin therapy may have an extreme result. Heparin dose (APTT) None Invalid Interpretation Code AO Coagulation S LDHon 07-11-2023 LDH 324 U/L High 120-246 [facility] ([place]) Comment on above: Performed By: #### D ADWOA #### [address] [place], [place] [address] LIPIDon 07-11-2023 Cholesterol [Mass/Vol] 176 mg/dL Normal 50-199 [facility] ([place]) Comment on above: Result Comment: Chol esterol Reference Interval: Less than 200 Desirable 200-239 Borderline high risk 240 and above High risk Performed By: #### T ANGELI #### [address] [address] Cholesterol in HDL [Mass/Vol] 31 mg/dL Low 40-59 [facility] ([place]) Comment on above: Performed By: #### T ANGELI #### [address] [address] Cholesterol in LDL [Mass/Vol] 104 mg/dL Normal 0-129 [facility] ([place] Comment on above: Performed By: #### T ANGELI #### [address] [address] Triglyceride [Mass/Vol] 206 mg/dL High 3-149 [facility] ([place]) Comment on above: Performed By: #### T ANGELI #### [address] [address] MGon 07-11-2023 Magnesium [Mass/Vol] 1.8 mg/dL Normal 1.6-2.4 [facility] ([place]) Comment on above: Performed By: #### Priscila ORONA #### Mary [address] [place], [place] [address] PROon 07-11-2023 INR Coag (PPP) [Relative time] 1.0 {INR} Normal [facility] ([place]) Comment on above: Result Comment: The [employer] (CHEST, 1991, 102:[id number]) recommended therapeutic range for oral anticoagulant therapy is: LOW RISK: Prophylaxis of venous thrombosis INR: 2.0-3.0 Treatment of pulmonary embolism 2.0-3.0 Prevention of systemic embolism 2.0-3.0 HIGH RISK: Mechanical prosthetic valves 2.5-3.5 Performed By: #### D RUGU #### [facility] [address] [place], [place] [address] PT Coag (PPP) [Time] 11.8 s Normal 9.0-14.2 [facility] ([place]) Comment on above: Performed By: #### D RUGU #### [facility] [address] [place], [place] [address] RPCURon 07-11-2023 U Creatinine 148.6 mg/dL Normal [facility] ([place]) Comment on above: Performed By: #### A PTT #### [facility] [address] [place], [place] [address] U Protein 62.7 mg/dL Normal [facility] ([place]) Comment on above: Performed By: #### A PTT #### [facility] [address] [place], [place] [address] U Ratio Prot/Creat 0.4 ratio Normal [facility] ([place]) Comment on above: Result Comment: resu lt calculated by rule GL_[id number]_PROT_NOTCALC_OLD (U Protein/U Creatinine) Performed By: #### A PTT #### [facility] [address] [place], [place] [address] TROPHSon 07-11-2023 Troponin I High Sensitivity 67.24 ng/L High 0.00-54.00 [facility] ([place]) Comment on above: Result Comment: If t he High Sensitive Troponin result is below the 99th percentile value (<45 ng/L) at the first blood draw, at least two additional blood samples should be drawn before results are interpreted as negative for AMI. Performed By: #### T ROPHS #### [address] [address] Troponin I High Sensitivity 78.40 ng/L High 0.00-54.00 [facility] ([place]) Comment on above: Result Comment: If t he High Sensitive Troponin result is below the 99th percentile value (<45 ng/L) at the first blood draw, at least two additional blood samples should be drawn before results are interpreted as negative for AMI. Performed By: #### D RUGU #### Mary [address] [place], [place] [address] Troponin I High Sensitivity 94.4 ng/L High 0.0-76.2 [facility] ([place]) Comment on above: Performed By: #### T ROPHS #### [place] [address] TSHon 07-11-2023 TSH 1.290 mIU/mL Normal 0.550-4.780 [facility] ([place]) Comment on above: Result Comment: No te - New Reference Range in effect 20 Performed By: #### P BNP #### [place] [address] UAon 07-11-2023 Color (U) Yellow Normal [facility] ([place] Comment on above: Performed By: #### U A ####Mary Hinson[address] [place], [place] [address] Glucose (U) [Mass/Vol] Negative Normal Negative [facility] ([place]) Comment on above: Performed By: #### U A ####[address] [place], [place] [address] Ketones Ql (U) Trace Normal Neg-Trace [facility] ([place] Comment on above: Performed By: #### U A ####[address] [place], [place] [address] UA Appear Clear Normal Clear [facility] ([place]) Comment on above: Performed By: #### U A ####[address] [place], [place] [address] UA Blood Negative Normal Neg-Trace [facility] ([place] Comment on above: Performed By: #### U A ####[address] [place], [place] [address] UA Leuk Est Negative Normal Negative [facility] ([place] Comment on above: Performed By: #### U A ####[address] [place] [address] UA Nitrite Negative Normal Negative [facility] Comment on above: Performed By: #### U A ####Mary [address] [place] [address] UA pH 6.0 Normal 5.0 - 8.0 [facility]) Comment on above: Performed By: #### U A ####[address] [place] [address] UA Protein 30 mg/dL Normal Negative [facility] ([place] Comment on above: Performed By: #### U A ####Maryfl[address] [place] [address] UA Spec Grav >=1.030 Abnormal 1.006-1.029 [facility]) Comment on above: Performed By: #### U A ####Mary [address] [place] [address] UA Specimen Type Void Normal [facility] ([place] Comment on above: Performed By: #### U A ####Maryflaco ChamberlainHukozgqnl[address] [place] [address] UA Urobilinogen 0.2 E.U./dL Normal 0.2-1.0 [facility] ([place]) Comment on above: Performed By: #### U A ####Maryflaco ChamberlainZctlbhod[address] [place] [address] Urobilinogen (U) [Mass/Vol] Negative Normal Neg-Trace [facility] ([place]) Comment on above: Performed By: #### U A ####Maryflaco ChamberlainJjp[address] [place] [address] .Auto Diffon 07-10-2023 Basophil, Absolute 0.1 10 3/mcL Normal 0.0-0.2 [facility]) Comment on above: Performed By: #### C K, TROPHS, ADIFF, ANEU, PBNP, DIMER, GFR, MG, MDW, CMP, CBC, PRO, CRP ####[place] [address]#### APTT ####[place] [address] [place], [place] [address] Basophils/100 WBC (Bld) 1.3 % Normal 0.0-2.5 [facility] ([place]) Comment on above: Performed By: #### C K, TROPHS, ADIFF, ANEU, PBNP, DIMER, GFR, MG, MDW, CMP, CBC, PRO, CRP ####[place] [address]#### APTT ####[facility] HospitalOviybpdlx7490 [place], [place] [address] Eosinophil, Absolute 0.5 10 3/mcL High 0.0-0.4 [facility] ([place]) Comment on above: Performed By: #### C K, TROPHS, ADIFF, ANEU, PBNP, DIMER, GFR, MG, MDW, CMP, CBC, PRO, CRP ####[place] [address]#### APTT ####[facility] HospitalOxlmeqxys9353 [place], [place] [address] Eosinophils/100 WBC (Bld) 5.4 % Normal 0.0-7.0 [facility] ([place]) Comment on above: Performed By: #### C K, TROPHS, ADIFF, ANEU, PBNP, DIMER, GFR, MG, MDW, CMP, CBC, PRO, CRP ####[place] [address]#### APTT ####[place] [place], [place] [address] Lymphocyte, Absolute 2.7 10 3/mcL Normal 0.8-3.9 [facility] ([place]) Comment on above: Performed By: #### C K, TROPHS, ADIFF, ANEU, PBNP, DIMER, GFR, MG, MDW, CMP, CBC, PRO, CRP ####[place] [address]#### APTT ####[facility] [address] [place] [address] Lymphocytes/100 WBC (Bld) 28.5 % Normal 10.0-50.0 [facility] ([place]) Comment on above: Performed By: #### C K, TROPHS, ADIFF, ANEU, PBNP, DIMER, GFR, MG, MDW, CMP, CBC, PRO, CRP ####[place] [address]#### APTT ####[facility] [place], [place] [address] Monocyte, Absolute 0.8 10 3/mcL Normal 0.2-1.0 [facility] ([place]) Comment on above: Performed By: #### C K, TROPHS, ADIFF, ANEU, PBNP, DIMER, GFR, MG, MDW, CMP, CBC, PRO, CRP ####[place] [address]#### APTT ####[place] [address] [place], [place] [address] Monocytes/100 WBC (Bld) 8.7 % Normal 1.7-13.0 [facility] ([place]) Comment on above: Performed By: #### C K, TROPHS, ADIFF, ANEU, PBNP, DIMER, GFR, MG, MDW, CMP, CBC, PRO, CRP ####[place] [address]#### APTT ####[facility] HospitalPuynqgfho4142 [place], [place] [address] Neutrophils/100 WBC (Bld) 56.1 % Normal 37.0-80.0 [facility] ([place]) Comment on above: Performed By: #### C K, TROPHS, ADIFF, ANEU, PBNP, DIMER, GFR, MG, MDW, CMP, CBC, PRO, CRP ####[place] [address]#### APTT ####[facility] [place], [place] [address] .GFRon 07-10-2023 GFR 61 ml/min/1.73sqm Normal [facility] ([place]) Comment on above: Result Comment: GFR Population mean for , Non- Americans Ages 20-29 = 116 mL/min/1.73 sq.m. Ages 30-39 = 107 mL/min/1.73 sq.m. Ages 40-49 = 99 mL/min/1.73 sq.m. Ages 50-59 = 93 mL/min/1.73 sq.m. Ages 60-69 = 85 mL/min/1.73 sq.m. Ages 70+ = 75 mL/min/1.73 sq.m. Chronic Kidney Disease: Less than 60 mL/min/1.73 square meters End Stage Renal Disease: Less than 15 mL/min/1.73 square meters Performed By: #### C K, TROPHS, ADIFF, ANEU, PBNP, DIMER, GFR, MG, MDW, CMP, CBC, PRO, CRP ####[place] [address]#### APTT ####Mary [address] [place], [place] [address] GFR Non- 50 ml/min/1.73sqm Normal [facility] ([place]) Comment on above: Result Comment: GFR Population mean for , Non- Americans Ages 20-29 = 116 mL/min/1.73 sq.m. Ages 30-39 = 107 mL/min/1.73 sq.m. Ages 40-49 = 99 mL/min/1.73 sq.m. Ages 50-59 = 93 mL/min/1.73 sq.m. Ages 60-69 = 85 mL/min/1.73 sq.m. Ages 70+ = 75 mL/min/1.73 sq.m. Chronic Kidney Disease: Less than 60 mL/min/1.73 square meters End Stage Renal Disease: Less than 15 mL/min/1.73 square meters Performed By: #### C K, TROPHS, ADIFF, ANEU, PBNP, DIMER, GFR, MG, MDW, CMP, CBC, PRO, CRP ####[address] [address]#### APTT ####[facility] CompanyYbziqncqu1627 [place] [address] .MDWon 07-10-2023 Monocyte Distribution Width 16.95 Normal 0.00-20.00 [facility] ([place]) Comment on above: Result Comment: For ED adult patients suspected of sepsis, MDW<=20.0 does not rule out sepsis or risk of sepsis Performed By: #### C K, TROPHS, ADIFF, ANEU, PBNP, DIMER, GFR, MG, MDW, CMP, CBC, PRO, CRP ####[place] [address]#### APTT ####[facility] [place] [address] .NEUABSon 07-10-2023 Neutrophil, Absolute 5.2 10 3/mcL Normal 2.9-6.2 [facility] ([place]) Comment on above: Performed By: #### C K, TROPHS, ADIFF, ANEU, PBNP, DIMER, GFR, MG, MDW, CMP, CBC, PRO, CRP ####[place] [address]#### APTT ####[facility] [place] [id number] APTTon 07-10-2023 aPTT Coag (Bld) [Time] 31.1 s Normal 25.0-35.0 [facility] ([place]) Comment on above: Result Comment: For Heparin anticoagulation therapy, the recommended therapeutic range is: 50.6-87.4 seconds. Patients on heparin therapy may have an extreme result. Performed By: #### C K, TROPHS, ADIFF, ANEU, PBNP, DIMER, GFR, MG, MDW, CMP, CBC, PRO, CRP ####[place] [address]#### APTT ####[place] [address] [place] [address] Heparin dose (APTT) None Normal [facility] ([place]) Comment on above: Performed By: #### C K, TROPHS, ADIFF, ANEU, PBNP, DIMER, GFR, MG, MDW, CMP, CBC, PRO, CRP ####[place] [address]#### APTT ####[facility] HospitalQvhhfffxs3248 [place], [place] [address] CBCon 07-10-2023 Erythrocyte distribution width (RBC) [Ratio] 13.9 % Normal 11.5-14.5 [facility] ([place]) Comment on above: Performed By: #### C K, TROPHS, ADIFF, ANEU, PBNP, DIMER, GFR, MG, MDW, CMP, CBC, PRO, CRP ####[place] [address]#### APTT ####[facility] HospitalVdymopsjs2791 [place], [place] [address] Hematocrit (Bld) [Volume fraction] 44.3 % Normal 42.0-52.0 [facility] ([place]) Comment on above: Performed By: #### C K, TROPHS, ADIFF, ANEU, PBNP, DIMER, GFR, MG, MDW, CMP, CBC, PRO, CRP ####[place] [address]#### APTT ####[facility] HospitalJfyekqowe9586 [place], [place] [address] Hgb 15.2 G/dL Normal 14.0-18.0 [facility] ([place]) Comment on above: Performed By: #### C K, TROPHS, ADIFF, ANEU, PBNP, DIMER, GFR, MG, MDW, CMP, CBC, PRO, CRP ####[place] [address]#### APTT ####[facility] HospitalGaxbphneb6975 [place], [place] [address] MCH (RBC) [Entitic mass] 28.9 pg Normal 27.0-31.2 [facility] ([place] Comment on above: Performed By: #### C K, TROPHS, ADIFF, ANEU, PBNP, DIMER, GFR, MG, MDW, CMP, CBC, PRO, CRP ####[place] [address]#### APTT ####Mary [address] [place], [place] [address] MCHC 34.2 G/dL Normal 31.8-35.4 [facility] ([place]) Comment on above: Performed By: #### C Isaak, TROPHS, ADIFF, ANEU, PBNP, DIMER, GFR, MG, MDW, CMP, CBC, PRO, CRP ####[place] [address]#### APTT ####[facility] HospitalWaetyxbvl8190 [place] [id number] MCV (RBC) [Entitic vol] 84.3 fL Normal 80.0-94.0 [facility] ([place]) Comment on above: Performed By: #### C Isaak, TROPHS, ADIFF, ANEU, PBNP, DIMER, GFR, MG, MDW, CMP, CBC, PRO, CRP ####[place] [address]#### APTT ####[facility]2021 [place] [id number] Platelet 253 10 3/mcL Normal 130-400 [facility] ([place] Comment on above: Performed By: #### C Isaak, TROPHS, ADIFF, ANEU, PBNP, DIMER, GFR, MG, MDW, CMP, CBC, PRO, CRP ####[place] [address]#### APTT ####[facility] HospitalVljnwhrrf4207 [place] [id number] Platelet mean volume (Bld) [Entitic vol] 9.0 fL Normal 7.4-10.4 [facility] ([place] Comment on above: Performed By: #### C K, TROPHS, ADIFF, ANEU, PBNP, DIMER, GFR, MG, MDW, CMP, CBC, PRO, CRP ####[place] [address]#### APTT ####[facility] HospitalBptcmcfie9965 [place] [id number] RBC 5.25 10 6/mcL Normal 4.04-6.13 [facility] ([place]) Comment on above: Performed By: #### C K, TROPHS, ADIFF, ANEU, PBNP, DIMER, GFR, MG, MDW, CMP, CBC, PRO, CRP ####[place] [address]#### APTT ####[facility] [place], [place] [address] WBC 9.4 10 3/mcL Normal 4.6-10.8 [facility] ([place]) Comment on above: Performed By: #### C K, TROPHS, ADIFF, ANEU, PBNP, DIMER, GFR, MG, MDW, CMP, CBC, PRO, CRP ####[place] [address]#### APTT ####[place] [address] [place], [place] [address] CKon 07-10-2023 CK [Catalytic activity/Vol] 344 U/L High 39-308 [facility] ([place]) Comment on above: Performed By: #### C K, TROPHS, ADIFF, ANEU, PBNP, DIMER, GFR, MG, MDW, CMP, CBC, PRO, CRP ####[place] [address]#### APTT ####[facility] [place], [place] [address] CMPon 07-10-2023 Albumin Level 3.8 G/dL Normal 3.5-5.0 [facility] ([place]) Comment on above: Performed By: #### C K, TROPHS, ADIFF, ANEU, PBNP, DIMER, GFR, MG, MDW, CMP, CBC, PRO, CRP ####[place] [address]#### APTT ####[place] [address] [place], [place] [address] Albumin/Globulin [Mass ratio] 1.3 {ratio} Normal 1.1-2.5 [facility] ([place] Comment on above: Performed By: #### C K, TROPHS, ADIFF, ANEU, PBNP, DIMER, GFR, MG, MDW, CMP, CBC, PRO, CRP ####[place] [address]#### APTT ####[facility]20[facility] [place], [place] [address] ALP [Catalytic activity/Vol] 109 U/L Normal 40-135 [facility] ([place]) Comment on above: Performed By: #### C K, TROPHS, ADIFF, ANEU, PBNP, DIMER, GFR, MG, MDW, CMP, CBC, PRO, CRP ####[place] [address]#### APTT ####[facility]20[facility] [place] [phone] ALT [Catalytic activity/Vol] 176 U/L High 16-63 [facility] ([place] Comment on above: Performed By: #### C K, TROPHS, ADIFF, ANEU, PBNP, DIMER, GFR, MG, MDW, CMP, CBC, PRO, CRP ####[place] [address]#### APTT ####[facility]20[facility] [place] [phone] AST [Catalytic activity/Vol] 147 U/L High 10-40 [facility] ([place] Comment on above: Performed By: #### C K, TROPHS, ADIFF, ANEU, PBNP, DIMER, GFR, MG, MDW, CMP, CBC, PRO, CRP ####[place] [address]#### APTT ####[facility] HospitalKvcbttxeh3756 [place] [id number] Bili Total 0.5 mg/dL Normal 0.2-1.0 [facility] ([place]) Comment on above: Result Comment: Use of this assay is not recommended for patients undergoing treatment with eltrombopag due to the potential for falsely elevated results. Performed By: #### C K, TROPHS, ADIFF, ANEU, PBNP, DIMER, GFR, MG, MDW, CMP, CBC, PRO, CRP ####[place] [address]#### APTT ####[facility]20[facility] [place], [place] [address] BUN/Creatinine Ratio 14 ratio Normal 7-27 [facility] ([place]) Comment on above: Performed By: #### C K, TROPHS, ADIFF, ANEU, PBNP, DIMER, GFR, MG, MDW, CMP, CBC, PRO, CRP ####[place] [address]#### APTT ####[facility]2021 [place], [place] [address] Calcium [Mass/Vol] 8.5 mg/dL Normal 8.4-10.2 [facility] ([place]) Comment on above: Performed By: #### C K, TROPHS, ADIFF, ANEU, PBNP, DIMER, GFR, MG, MDW, CMP, CBC, PRO, CRP ####[place] [address]#### APTT ####[facility]20[facility] [place], [place] [address] Chloride [Moles/Vol] 106 mmol/L Normal 98-107 [facility] ([place]) Comment on above: Performed By: #### C K, TROPHS, ADIFF, ANEU, PBNP, DIMER, GFR, MG, MDW, CMP, CBC, PRO, CRP ####[place] [address]#### APTT ####[facility]20[facility] [place], [place] [address] CO2 [Moles/Vol] 29 mmol/L Normal 22-29 [facility] ([place]) Comment on above: Performed By: #### C K, TROPHS, ADIFF, ANEU, PBNP, DIMER, GFR, MG, MDW, CMP, CBC, PRO, CRP ####[place] [address]#### APTT ####[facility]20[facility] [place], [place] [address] Creatinine [Mass/Vol] 1.57 mg/dL High 0.70-1.30 [facility] ([place]) Comment on above: Performed By: #### C K, TROPHS, ADIFF, ANEU, PBNP, DIMER, GFR, MG, MDW, CMP, CBC, PRO, CRP ####[place] [address]#### APTT ####[address] [address] Electrolyte Balance 8.0 mEq/L Normal 4.0-15.0 [facility] ([place]) Comment on above: Performed By: #### C K, TROPHS, ADIFF, ANEU, PBNP, DIMER, GFR, MG, MDW, CMP, CBC, PRO, CRP ####[place] [address]#### APTT ####[place] [id number] Globulin 3.0 G/dL Normal [facility] ([place]) Comment on above: Performed By: #### C K, TROPHS, ADIFF, ANEU, PBNP, DIMER, GFR, MG, MDW, CMP, CBC, PRO, CRP ####[place] [address]#### APTT ####[place] [address] [place], [place] [address] Glucose [Mass/Vol] 84 mg/dL Normal 70-105 [facility] ([place] Comment on above: Performed By: #### C K, TROPHS, ADIFF, ANEU, PBNP, DIMER, GFR, MG, MDW, CMP, CBC, PRO, CRP ####[place] [address]#### APTT ####[place] [address] [place] [phone] Potassium [Moles/Vol] 4.0 mmol/L Normal 3.5-5.1 [facility] ([place]) Comment on above: Performed By: #### C K, TROPHS, ADIFF, ANEU, PBNP, DIMER, GFR, MG, MDW, CMP, CBC, PRO, CRP ####[place] [address]#### APTT ####[place] [address] [place], [place] [address] Sodium [Moles/Vol] 143 mmol/L Normal 136-145 [facility] ([place] Comment on above: Performed By: #### C K, TROPHS, ADIFF, ANEU, PBNP, DIMER, GFR, MG, MDW, CMP, CBC, PRO, CRP ####[place] [address]#### APTT ####[place] [address] [place], [place] [address] Total Protein 6.8 G/dL Normal 6.4-8.2 [facility] ([place]) Comment on above: Performed By: #### C K, TROPHS, ADIFF, ANEU, PBNP, DIMER, GFR, MG, MDW, CMP, CBC, PRO, CRP ####[place] [address]#### APTT ####[facility] [place], [place] [address] Urea nitrogen [Mass/Vol] 22 mg/dL High 7-18 [facility] ([place]) Comment on above: Performed By: #### C K, TROPHS, ADIFF, ANEU, PBNP, DIMER, GFR, MG, MDW, CMP, CBC, PRO, CRP ####[place] [address]#### APTT ####[facility] [place], [place] [address] CRPon 07-10-2023 C-Reactive Protein 1.6 mg/dL High 0.0-0.3 [facility] ([place] Comment on above: Performed By: #### C K, TROPHS, ADIFF, ANEU, PBNP, DIMER, GFR, MG, MDW, CMP, CBC, PRO, CRP ####[place] [address]#### APTT ####[facility] HospitalUsmlduful8354 [place], [place] [address] DIMERon 07-10-2023 D-Dimer 233 ng/mL D-DU High 0-230 [facility] ([place]) Comment on above: Result Comment: Resu lts reported in D-DU ng/mL. Positive for D-dimer. A positive D-Dimer may occur in the following: DVT, PE, DIC, Trauma, Cancer, Sepsis, , Rheumatoid arthritis, Myocardial infarction and Cirrhosis. The presence of Rheumatoid Factor and HAMA (human mouse antibody) produces an overestimation of test results. The result of the D-Dimer test should be evaluated in the context of all the clinical and laboratory data available. In those instances where the laboratory result does not agree with the clinical evaluation, additional tests should be performed accordingly. If the D-Dimer result is used to exclude DVT or PE, the recommended cutoff value is less than 230 ng/mL. The D-Dimer result should not be used alone to rule in DVT/PE, but should be used in conjunction with a clinical pretest probability (PTP)assessment model to exclude venous thromboembolism (VTE) in outpatients suspected of deep venous thrombosis (DVT) and pulmonary embolism (PE). Performed By: #### C K, TROPHS, ADIFF, ANEU, PBNP, DIMER, GFR, MG, MDW, CMP, CBC, PRO, CRP ####[address] [address]#### APTT ####[facility] [place], [place] [address] LABORATORYOrdered By: SYSTEM SYSTEM on 07-10-2023 Troponin I.cardiac DL <= 0.01 ng/mL [Mass/Vol] 94.4 ng/L Invalid Interpretation Code 0.0 - 76.2 ng/L AO ADM SS Albumin BCP dye [Mass/Vol] 3.8 G/dL Invalid Interpretation Code 3.5 - 5.0 G/dL AO ADM SS Albumin/Globulin [Mass ratio] 1.3 {ratio} Invalid Interpretation Code 1.1 - 2.5 ratio AO ADM SS ALP [Catalytic activity/Vol] 109 U/L Invalid Interpretation Code 40 - 135 U/L AO ADM SS ALT With P-5'-P [Catalytic activity/Vol] 176 U/L Invalid Interpretation Code 16 - 63 U/L AO ADM SS AST With P-5'-P [Catalytic activity/Vol] 147 U/L Invalid Interpretation Code 10 - 40 U/L AO ADM SS Basophil, Absolute 0.1 103/mcL Invalid Interpretation Code 0.0 - 0.2 10^3/mcL AO Workflow SS Basophils/100 WBC (Bld) 1.3 % Invalid Interpretation Code 0.0 - 2.5 % AO Workflow SS Bilirubin [Mass/Vol] 0.5 mg/dL Invalid Interpretation Code 0.2 - 1.0 mg/dL AO ADM SS Comment on above: Interpretive Data: U se of this assay is not recommended for patients undergoing treatment with eltrombopag due to the potential for falsely elevated results. Calcium [Mass/Vol] 8.5 mg/dL Invalid Interpretation Code 8.4 - 10.2 mg/dL AO ADM SS Chloride [Moles/Vol] 106 mmol/L Invalid Interpretation Code 98 - 107 mmol/L AO ADM SS CK [Catalytic activity/Vol] 344 U/L Invalid Interpretation Code 39 - 308 U/L AO ADM SS CO2 [Moles/Vol] 29 mmol/L Invalid Interpretation Code 22 - 29 mmol/L AO ADM SS Creatinine [Mass/Vol] 1.57 mg/dL Invalid Interpretation Code 0.70 - 1.30 mg/dL AO ADM SS CRP [Mass/Vol] 1.6 mg/dL Invalid Interpretation Code 0.0 - 0.3 mg/dL AO ADM SS Electrolyte Balance 8.0 mEq/L Invalid Interpretation Code 4.0 - 15.0 mEq/L AO ADM SS Eosinophil, Absolute 0.5 103/mcL Invalid Interpretation Code 0.0 - 0.4 10^3/mcL AO Workflow SS Eosinophils/100 WBC (Bld) 5.4 % Invalid Interpretation Code 0.0 - 7.0 % AO Workflow SS Erythrocyte distribution width (RBC) [Ratio] 13.9 % Invalid Interpretation Code 11.5 - 14.5 % AO Workflow SS GFR/1.73 sq M.predicted among blacks MDRD (S/P/Bld) [Vol rate/Area] 61 ml/min/1.73sqm Invalid Interpretation Code AO Chemistry S Comment on above: Interpretive Data: GFR Population mean for , Non- Americans Ages 20-29 = 116 mL/min/1.73 sq.m. Ages 30-39 = 107 mL/min/1.73 sq.m. Ages 40-49 = 99 mL/min/1.73 sq.m. Ages 50-59 = 93 mL/min/1.73 sq.m. Ages 60-69 = 85 mL/min/1.73 sq.m. Ages 70+ = 75 mL/min/1.73 sq.m. Chronic Kidney Disease: Less than 60 mL/min/1.73 square meters End Stage Renal Disease: Less than 15 mL/min/1.73 square meters GFR/1.73 sq M.predicted among non-blacks MDRD (S/P/Bld) [Vol rate/Area] 50 ml/min/1.73sqm Invalid Interpretation Code AO Chemistry S Comment on above: Interpretive Data: GFR Population mean for , Non- Americans Ages 20-29 = 116 mL/min/1.73 sq.m. Ages 30-39 = 107 mL/min/1.73 sq.m. Ages 40-49 = 99 mL/min/1.73 sq.m. Ages 50-59 = 93 mL/min/1.73 sq.m. Ages 60-69 = 85 mL/min/1.73 sq.m. Ages 70+ = 75 mL/min/1.73 sq.m. Chronic Kidney Disease: Less than 60 mL/min/1.73 square meters End Stage Renal Disease: Less than 15 mL/min/1.73 square meters Globulin 3.0 G/dL Invalid Interpretation Code AO ADM SS Glucose [Mass/Vol] 84 mg/dL Invalid Interpretation Code 70 - 105 mg/dL AO ADM SS Hematocrit (Bld) [Volume fraction] 44.3 % Invalid Interpretation Code 42.0 - 52.0 % AO Workflow SS Hemoglobin (Bld) [Mass/Vol] 15.2 G/dL Invalid Interpretation Code 14.0 - 18.0 G/dL AO Workflow SS Lymphocyte, Absolute 2.7 103/mcL Invalid Interpretation Code 0.8 - 3.9 10^3/mcL AO Workflow SS Lymphocytes/100 WBC (Bld) 28.5 % Invalid Interpretation Code 10.0 - 50.0 % AO Workflow SS Magnesium [Mass/Vol] 1.8 mg/dL Invalid Interpretation Code 1.8 - 2.4 mg/dL AO ADM SS MCH (RBC) [Entitic mass] 28.9 pg Invalid Interpretation Code 27.0 - 31.2 pg AO Workflow SS MCHC 34.2 G/dL Invalid Interpretation Code 31.8 - 35.4 G/dL AO Workflow SS MCV (RBC) [Entitic vol] 84.3 fL Invalid Interpretation Code 80.0 - 94.0 fL AO Workflow SS Monocyte distribution width Auto (Bld) [Entitic vol] 16.95 1 Invalid Interpretation Code 0.00 - 20.00 AO Workflow SS Comment on above: Result Comment: For ED adult patients suspected of sepsis, MDW<=20.0 does not rule out sepsis or risk of sepsis Monocyte, Absolute 0.8 103/mcL Invalid Interpretation Code 0.2 - 1.0 10^3/mcL AO Workflow SS Monocytes/100 WBC (Bld) 8.7 % Invalid Interpretation Code 1.7 - 13.0 % AO Workflow SS Natriuretic peptide.B prohormone N-Terminal [Mass/Vol] 3212 pg/mL Invalid Interpretation Code 0 - 125 pg/mL AO ADM SS Comment on above: Interpretive Data: N T-proBNP results of less than 300 pg/mL effectively rules out acute congestive heart failure with 99% negative predictive value. Neutrophil, Absolute 5.2 103/mcL Invalid Interpretation Code 2.9 - 6.2 10^3/mcL AO Workflow SS Neutrophils/100 WBC (Bld) 56.1 % Invalid Interpretation Code 37.0 - 80.0 % AO Workflow SS Platelet mean volume (Bld) [Entitic vol] 9.0 fL Invalid Interpretation Code 7.4 - 10.4 fL AO Workflow SS Platelets (Bld) [#/Vol] 253 103/mcL Invalid Interpretation Code 130 - 400 10^3/mcL AO Workflow SS Potassium [Moles/Vol] 4.0 mmol/L Invalid Interpretation Code 3.5 - 5.1 mmol/L AO ADM SS Protein [Mass/Vol] 6.8 G/dL Invalid Interpretation Code 6.4 - 8.2 G/dL AO ADM SS RBC (Bld) [#/Vol] 5.25 106/mcL Invalid Interpretation Code 4.04 - 6.13 10^6/mcL AO Workflow SS Sodium [Moles/Vol] 143 mmol/L Invalid Interpretation Code 136 - 145 mmol/L AO ADM SS Troponin I.cardiac DL <= 0.01 ng/mL [Mass/Vol] 97.7 ng/L Invalid Interpretation Code 0.0 - 76.2 ng/L AO ADM SS Urea nitrogen [Mass/Vol] 22 mg/dL Invalid Interpretation Code 7 - 18 mg/dL AO ADM SS Urea nitrogen/Creatinine [Mass ratio] 14 ratio Invalid Interpretation Code 7 - 27 ratio AO ADM SS WBC (Bld) [#/Vol] 9.4 103/mcL Invalid Interpretation Code 4.6 - 10.8 10^3/mcL AO Workflow SS LABORATORYOrdered By: Joaquin Boogie on 07-10-2023 aPTT Coag (PPP) [Time] 31.1 s Invalid Interpretation Code 25.0 - 35.0 seconds AO [facility] SS Comment on above: Interpretive Data: F or Heparin anticoagulation therapy, the recommended therapeutic range is: 50.6-87.4 seconds. Patients on heparin therapy may have an extreme result. Fibrin D-dimer DDU (PPP) [Mass/Vol] 233 ng/mL D-DU Invalid Interpretation Code 0 - 230 ng/mL D-DU AO [facility] Comment on above: Result Comment: Resu lts reported in D-DU ng/mL. Positive for D-dimer. A positive D-Dimer may occur in the following: DVT, PE, DIC, Trauma, Cancer, Sepsis, , Rheumatoid arthritis, Myocardial infarction and Cirrhosis. The presence of Rheumatoid Factor and HAMA (human mouse antibody) produces an overestimation of test results. Interpretive Data: T he result of the D-Dimer test should be evaluated in the context of all the clinical and laboratory data available. In those instances where the laboratory result does not agree with the clinical evaluation, additional tests should be performed accordingly. If the D-Dimer result is used to exclude DVT or PE, the recommended cutoff value is less than 230 ng/mL. The D-Dimer result should not be used alone to rule in DVT/PE, but should be used in conjunction with a clinical pretest probability (PTP)assessment model to exclude venous thromboembolism (VTE) in outpatients suspected of deep venous thrombosis (DVT) and pulmonary embolism (PE). Heparin dose (APTT) None Invalid Interpretation Code AO Coagulation S INR Coag (PPP) [Relative time] 1.0 {INR} Invalid Interpretation Code AO [facility] SS Comment on above: Interpretive Data: T he [place] [employer] [employer] (CHEST, 1992, 102:312S-25S) recommended therapeutic range for oral anticoagulant therapy is: LOW RISK: Prophylaxis of venous thrombosis INR: 2.0-3.0 Treatment of pulmonary embolism 2.0-3.0 Prevention of systemic embolism 2.0-3.0 HIGH RISK: Mechanical prosthetic valves 2.5-3.5 PT Coag (PPP) [Time] 11.9 s Invalid Interpretation Code 9.0 - 14.2 seconds AO [facility] SS MGon 07-10-2023 Magnesium [Mass/Vol] 1.8 mg/dL Normal 1.8-2.4 [facility] ([place]) Comment on above: Performed By: #### C K, TROPHS, ADIFF, ANEU, PBNP, DIMER, GFR, MG, MDW, CMP, CBC, PRO, CRP ####[place] [id number]#### APTT ####[facility] HospitalSquxmfyxt[address] [place] [id number] PBNPon 07-10-2023 Natriuretic peptide B (Bld) [Mass/Vol] 3212 pg/mL High 0-125 [facility] ([place]) Comment on above: Result Comment: NT-p roBNP results of less than 300 pg/mL effectively rules out acute congestive heart failure with 99% negative predictive value. Performed By: #### C K, TROPHS, ADIFF, ANEU, PBNP, DIMER, GFR, MG, MDW, CMP, CBC, PRO, CRP ####[place] [address]#### APTT ####[facility] Company[facility]hap[facility]renc[address] [place], [place] [address] PROon 07-10-2023 PT Coag (PPP) [Time] 11.9 s Normal 9.0-14.2 [facility] ([place]) Comment on above: Performed By: #### C K, TROPHS, ADIFF, ANEU, PBNP, DIMER, GFR, MG, MDW, CMP, CBC, PRO, CRP ####[place] [address]#### APTT ####[facility] HospitalSorbkhdqu[address] [place] [id number] PT International Ratio 1.0 Normal [facility] ([place]) Comment on above: Result Comment: The [place] [employer] (CHEST, 1992, 102:312S-25S) recommended therapeutic range for oral anticoagulant therapy is: LOW RISK: Prophylaxis of venous thrombosis INR: 2.0-3.0 Treatment of pulmonary embolism 2.0-3.0 Prevention of systemic embolism 2.0-3.0 HIGH RISK: Mechanical prosthetic valves 2.5-3.5 Performed By: #### C K, TROPHS, ADIFF, ANEU, PBNP, DIMER, GFR, MG, MDW, CMP, CBC, PRO, CRP ####[place] [address]#### APTT ####[facility] HospitalGqpotziku[address] [place], [place] [address] TROPHSon 07-10-2023 Troponin I High Sensitivity 97.7 ng/L High 0.0-76.2 [facility] ([place]) Comment on above: Performed By: #### C K, TROPHS, ADIFF, ANEU, PBNP, DIMER, GFR, MG, MDW, CMP, CBC, PRO, CRP ####[place] [address]#### APTT ####[facility] HospitalRdtroeuuo[address] [place] [id number] XR CHEST 1 VIEWon 07-10-2023 XR CHEST 1 VIEW ORIGINAL EXAMINATION: ONE XRAY VIEW OF THE CHEST 07/10/2023 10:57 pm COMPARISON: 08/22/2019 HISTORY: ORDERING SYSTEM PROVIDED HISTORY: Reason for Exam: patient not feeling well a week ago, today walking around [facility] and had SOB and CP chest pain FINDINGS: Mild cardiomegaly has developed. Lungs are symmetrically pneumatized and free of airspace disease, effusion or pneumothorax. Pulmonary vascular pattern is within normal range. Skeletal elements are intact. IMPRESSION: 1. Developing cardiomegaly without active airspace disease. Interpreted by: Ayush Fam DO Preliminary Report By: Ayush Fam DO Electronically signed By Ayush Fam DO Dictated Date: 07/10/2023 11:00:15 PM Prelim Date: 07/10/2023 11:01:34 PM Sign Date: 07/10/2023 11:01:34 PM Ordering Provider: EDILMA RUBY [facility] ([place]) Audra 08-27-2020 EMERGENCY PHYSICIAN REPORT This is a preliminary report only, as the practitioner review and authentication has not occurred. [facility] ER PHYSICIAN ASSESSMENT RECORDS : FlexChartData Event Time: 08/26/2020 21:45 Status: Signed [facility] Pancho Lopez [[id number]] Attending Physician 34 / M / 1985 Chart (V2b) Chart created at 08/26/2020 21:41 by Ruddy Odom Chart closed at 08/26/2020 22:45 Entry in Emergency Department at 08/26/2020 21:21 Patient Name: Pancho Lopez Record Number: [id number] Date: 08/26/2020 21:41 Entered Department at: 08/26/2020 21:21 Patient Seen at: 08/26/2020 21:30 Historian: Patient PCP: *None,. Chief Complaint:Allergic reaction with hives, unsure of source, possibly bananas. Triage Note reviewed and Initial Vital Signs reviewed. Temperature: 98.4 F (36.9 C). Pulse: 92. Respiratory Rate: 22. Blood-pressure: 160/91. Oxygen Saturation: 99%. History of Present Illness: 34-Year-old male brought in for evaluation of allergic reaction. After eating 1 banana approximately 2 hours ago, started developing rash, itching, redness and swelling. Patient took 2 Benadryl and did not really improve therefore came in for evaluation. He is never had a reaction like this in the past eating bananas. No other exposure to new foods, soaps or detergents. No other new lotions or medications. Does [facility] PATIENT NAME: PANCHO LOPEZ [address] MEDICAL REC #: [id number] [place] [address] EMERGENCY DEPARTMENT REPORT EMERGENCY DEPARTMENT PHYSICIAN complain of swelling around his eyes as well as swelling of his tongue and lips. No shortness of breath or difficulty breathing though. No other abdominal discomfort. No nausea or vomiting. Review of Systems. Constitutional: negative for Fever Eyes: negative for Eye Pain Ear/Nose/Throat: negative for Sore Throat Cardio-Vascular: negative for Chest Pain Skin: positive for Itch and Rash Respiratory: negative for Hemoptysis GI: negative for Abd. Pain : negative for Hematuria Musculo-Skeletal: negative for Back Pain Neurological: negative for Headache Hem/Endo: negative for Bleeding Immunology: negative for Joint Pain Past History, Medications, Allergies, Social History and Family History reviewed in nurses note. Medications: Reviewed RN Note. None Allergies: Reviewed RN Note FOOD ALLERGIES(Hives) Social History: Reviewed RN Note. Family History: Reviewed RN Note Physical Examination: General: Alert and Well Developed; Well-developed, well-nourished male. He is awake and alert to person, place and time. Vital signs as noted. He was not hypotensive nor is he tachycardic. HEENT: Normal ENT inspection. Head: Atraumatic. Eyes: Lids Normal; PERRL; EOMI. Ear: Normal auricle, Normal external aud. canal, Normal Tympanic Membranes. Nose: Normal inspection, Normal mucose. Oropharynx / Throat: Normal Pharynx, Moist mucous membranes. No swelling of the tongue or posterior pharynx was noted.. Neck: No Lymphadenopathy and Supple; Patient was not drooling and handling secretions well. Respiratory: No Resp Distress and Normal Breath Sounds; No stridor or wheezing noted. [facility] PATIENT NAME: PANCHO LOPEZ [address] MEDICAL REC #: [id number] [place] [address] EMERGENCY DEPARTMENT REPORT EMERGENCY DEPARTMENT PHYSICIAN Cardio-Vascular: No murmur and RRR Abdomen: Normal Bowel Sounds, No Organomegaly and Non-tender; negative for Rebound, Guarding, Mass or Pulsatile; no peritoneal signs noted Back: No CVA tenderness and Non-tender Extremity: No edema and Normal Equal pulses; pulses equal upper/ lower extremities. equal left and right sides. Full range of motion of all joints. No deformities were noted. No cyanosis, clubbing or edema noted. Neurological: Alert, Oriented X3, Normal Sensation, No Gross Weakness, Speech Normal, Normal DTRs and 5/5 UE/LE Strength Skin: No Petechiae, Warm and Dry; Patient had diffuse erythematous urticarial rash present over the entire body. No vesicles, pustules or papules are noted. Psychological: Mood/Affect Normal and Normal Memory/Judgment Medical Decision Making Patient given a breathing treatment as well as IV Solu-Medrol and Pepcid. He had taken 50 of Benadryl prior to arrival. Patient was observed here and has gradually shown improvement. Erythema, itching as well as swelling have improved. At this time I do feel he could be discharged home. I will place him on prednisone though for the next 5 days. Advised use Benadryl for any further itching or irritation. Return for increased shortness of breath, difficulty breathing or difficulty swallowing. Patient discharged stable condition Additional Information: Discussed Results, Diagnosis and Follow-Up with Patient. Prescription given (Prednisone). Clinical Impression: 1. Allergic reaction Disposition: Discharged *Home. Condition: Stable MSE completed. I was the primary ED attending.. [facility] PATIENT NAME: PANCHO LOPEZ [address] MEDICAL REC #: [id number] [place] [address] EMERGENCY DEPARTMENT REPORT EMERGENCY DEPARTMENT PHYSICIAN : Discharge Report Event Time: 08/26/2020 22:46 ===DISCHARGE REPORT=== : FlexChartData Event Time: 08/26/2020 21:45 : Discharge Report Event Time: 08/26/2020 22:46 Status: Draft Reasons to Return to the ER: You must return to the ER for any new, worsening or changing symptoms, or if you feel more ill or sick in any way. This is the most important thing to remember. Follow-up: The care you received in the ER was given on an emergency basis only, and it is often not possible to completely treat or diagnose a problem in a single ER visit. You must see your follow-up doctor for a recheck within a week unless you receive instructions with a different timeframe for follow-up. Please follow all your discharge instructions. Medications: Unless the ER doctor tells you differently, you should take all your regular medications and any new medications prescribed today. Because it is not possible for the ER doctor to review all of your medication side effects or interactions, you must review possible side effects and interactions with your pharmacist when you get your prescriptions filled. EKG and Radiology Results: A program and research coordinator or radiologist will review any EKG or radiology results provided by the ER doctor. We will contact you if the results in the final EKG or radiology reports require a change in treatment. Culture Results: Cultures may have been ordered during your ER visit. We [facility] PATIENT NAME: PANCHO LOPEZ [address] MEDICAL REC #: [id number] [place] [address] EMERGENCY DEPARTMENT REPORT EMERGENCY DEPARTMENT PHYSICIAN will contact you if the culture results require a change in treatment. Referrals: Most referrals to specialists come from the on-call list You should make your regular doctor aware of any referrals before you schedule the appointment so that they are aware and can make suggestions DIAGNOSIS: Allergic reaction INSTRUCTIONS: Use prednisone for the next 5 days. May also use Benadryl for itching. Continue any present medication as previously directed. Return for increased shortness of breath, difficulty breathing, swelling or difficulty swallowing. MEDICATIONS We have given you these prescriptions that you must fill and start taking: prednisone 20 mg tablet, count:10, Dose =1 tab, count:10,5 days, count:10,2 times a day, count:10 COMMENTS: Patient Satisfaction: Within the first few days after your visit, you will receive an email and/or phone call regarding your visit. We value your feedback, and would appreciate it if you would take the time to complete this short survey. If you receive a call, it will be between 6p and 8p. My signature below indicates that I have received and understand the oral instructions regarding my medical problem. I also acknowledge receipt of this written instruction sheet including a list of major tests and procedures ordered during my visit. I will arrange for follow-up care as indicated by these [facility] PATIENT NAME: PANCHO LOPEZ [address] MEDICAL REC #: [id number] [place] [address] EMERGENCY DEPARTMENT REPORT EMERGENCY DEPARTMENT PHYSICIAN instructions and referrals. This signed original will be kept in my medical record. Your signature below indicates consent for Case Management to contact [facility] in an effort to meet your ongoing healthcare needs. This will allow forcontinuity of care once you leave the Emergency Department. This exchange of informationwill include, but not be limited to, disclosure of your patient information and possible release of records. 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 Arrival Date: 08/26/2020 21:21 Triage Date: 08/26/2020 21:23 Mode of Arrival: *Privately Owned Vehicle Transfer From: Other [facility] WC: N Language: Pashto Transport: Ambulatory/Walk In [facility] PATIENT NAME: PANCHO LOPEZ [address] MEDICAL REC #: [id number] [place] [address] EMERGENCY DEPARTMENT REPORT EMERGENCY DEPARTMENT PHYSICIAN BED A09 In: 08/26/2020 21:26:47 08/26/2020 21:26:47 CMS A09 (Removed From) Out: 08/26/2020 23:23:46 08/26/2020 23:23:46 CMS PROVIDERS MD Ruddy Odom Provider Contact: 08/26/2020 21:30:00 JONATAN End: COLETTE ALMAGUER Provider Contact: 08/26/2020 22:39:46 DPGA End: TRIAGE HISTORY ALLERGIES Allergic To: FOOD ALLERGIES - Hives 08/26/2020 21:26 [facility] CURRENT MEDS Name: None 08/26/2020 21:26 [facility] ILLNESS Illness: Other Medical EPIGLOTITIS 08/26/2020 21:26 [facility] PAST SURGERY HIST Surgery: TRACHEOSTOMY 08/26/2020 21:26 [facility] Surgery: Cholecystectomy 08/26/2020 21:26 [facility] PAST SOCIAL HIST Social History: Alcohol - None 08/26/2020 21:26 [facility] PATIENT NAME: PANCHO LOPEZ [address] MEDICAL REC #: [id number] [place] [address] EMERGENCY DEPARTMENT REPORT EMERGENCY DEPARTMENT PHYSICIAN Social History: Smoker-None 08/26/2020 21:26 [facility] Social History: Recreational Drugs - None 08/26/2020 21:26 [facility] Social History: Have you traveled in the past month? Where NO 08/26/2020 21:26 [facility] IMMUNIZATIONS Immunization: *Immunizations current 08/26/2020 21:26 [facility] NURSING ASSESSMENT Respiratory Treatment : Respiratory Therapy Treatment Event Time: 08/26/2020 22:36 MDCB Therapy:Aerosol: Albuterol 2.5mg Pre Treatment Auscultation:clear: Pre Treatment Vital Signs:heart rate pre treatment: 92respiratory rate pre treatment: 22 Small Volume Nebulizer Treatment:SVN given with mouthpiece Post Treatment Auscultation:clear: Post Treatment Vital Signs:heart rate post treatment: 92respiratory rate post treatment: 22 ASSESSMENT NOTES 08/26/2020 21:40 See triage note. Patient is Aandamp;Ox4, respirations easy and unlabored, lungs CTA and in no distress. Patient has scattered hive and rash all over body. Skin is warm to touch. Patient is from [facility] and has a C.O. with him. 08/26/2020 21:42 [facility] 08/26/2020 22:39 pt resting in bed, no new complaints 08/26/2020 22:39 DP[facility] TREATMENT 08/26/2020 21:38 Hourly Rounding - Rounding 08/26/2020 21:39 [facility] Elimination/Toileting N [facility] PATIENT NAME: PANCHO LOPEZ [address] MEDICAL REC #: [id number] [place] [address] EMERGENCY DEPARTMENT REPORT EMERGENCY DEPARTMENT PHYSICIAN Pain 0 Position Comfortable Y Safe Environment Y Assessment Note C.O. from [facility] at bedside Fall Risk Change N 08/26/2020 21:38 Patient Interaction - Allergy Band on Pt. 08/26/2020 21:39 [facility] 08/26/2020 21:38 Patient Interaction - Returned Item Clerk/ Pulse ox/ BP cuff applied 08/26/2020 21:39 [facility] 08/26/2020 21:38 Patient Interaction - Call light placed within reach. 08/26/2020 21:39 [facility] 08/26/2020 21:38 Patient Interaction - Introduce self to Patient. 08/26/2020 21:39 [facility] 08/26/2020 21:38 Patient Interaction - Name Band on Pt 08/26/2020 21:39 [facility] 08/26/2020 21:38 Primary DOC Guide - A. 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 Fall Risk Assessment (Age andlt;65) 08/26/2020 21:39 [facility] Fall Risk Score 1-2 Points = Low Risk. 3-4 Points = Moderate Risk. 5 or more points = High Risk. 0 Fall Score Greater andgt;= 3? No 08/26/2020 21:39 Primary DOC Guide - D. [place] Suicide Risk Survey 08/26/2020 21:39 [facility] 6a. Have you ever done anything, started to do anything, or prepared to do anything to end your life? No 2. Have you actually had any thoughts of killing [facility] PATIENT NAME: PANCHO LOPEZ [address] MEDICAL REC #: [id number] [place] [address] EMERGENCY DEPARTMENT REPORT EMERGENCY DEPARTMENT PHYSICIAN yourself? If YES to 2, ask questions 3,4,5 and 6. If NO to 2, go directly to question 6. No 1. Have you wished you were or wished you could go to sleep and not wake up? No 08/26/2020 21:39 Primary DOC Guide - E. Family Violence Assessment 08/26/2020 21:39 [facility] Within the past year, has anyone ever pushed, shoved, slapped, choked, hit, punched or kicked you: No Within the past year, has anyone ever pressured or forced you to have sexual activities when you did not want to: No Do you feel safe and well cared for: Yes Is there a partner from a previous or current relationship that is making you feel unsafe now: No Family Violence Clinical Observation All Negative Except 08/26/2020 23:23 Admit/Discharge - *Discharge instructions/tests andamp; procedures/med list reviewed and provided; prescriptions given to patient 08/26/2020 23:23 CMS 08/26/2020 23:23 Admit/Discharge - Ambulated with steady gait home 08/26/2020 23:23 CMS MEDICATIONS IV IV Fluid: B 08/26/2020 21:38 08/26/2020 21:38 CMS Line #: 1 Fluid: Saline Lock Rate: ml/hr Location: antecubital fossa right Ndl Gauge: 20 # Attempts: 1 IV Fluid: E 08/26/2020 23:23 08/26/2020 23:23 CMS Line #: 1 Rate: ml/hr Location: antecubital fossa right Ndl Gauge: 20 # Attempts: 1 [facility] PATIENT NAME: PANCHO LOPEZ [address] Castaneda MEDICAL REC #: [id number] [place] [address] EMERGENCY DEPARTMENT REPORT EMERGENCY DEPARTMENT PHYSICIAN I AND O VITALS VS-ROUTINE Time: 08/26/2020 21:23 B/P: 160/91 - Left Upper Arm - Lying - Machine Pulse: 92 - Monitor Resp: 22 Sa02: 99 Room Air Temp: 98.40 F - Oral 08/26/2020 21:26 CMS VS-Pain Time: 08/26/2020 21:23 Pain Level: 0 08/26/2020 21:26 CMS VS-GCS Time: 08/26/2020 21:23 Visual: 4 Verbal: 5 Motor: 6 GCS Total: 15 08/26/2020 21:26 CMS VS-HT/WT Time: 08/26/2020 21:23 Ht: 198.1 cm Stated Weight: 299 lbs Actual 08/26/2020 21:26 CMS VS-Visual Time: 08/26/2020 21:23 08/26/2020 21:26 CMS VS-FHT Time: 08/26/2020 21:23 08/26/2020 21:26 CMS VS-Notes Time: 08/26/2020 21:23 MAP = 120 08/26/2020 21:26 CMS VS-ROUTINE Time: 08/26/2020 23:22 B/P: 146/67 - Left Upper Arm - Lying - Machine Pulse: 72 - Monitor Resp: 16 Sa02: 99 Room Air 08/26/2020 23:23 CMS VS-Pain Time: 08/26/2020 23:22 Pain Level: 0 08/26/2020 23:23 CMS VS-GCS Time: 08/26/2020 23:22 Visual: 4 Verbal: 5 Motor: 6 GCS Total: 15 08/26/2020 23:23 CMS VS-HT/WT Time: 08/26/2020 23:22 08/26/2020 23:23 CMS VS-Visual Time: 08/26/2020 23:22 08/26/2020 23:23 CMS VS-FHT Time: 08/26/2020 23:22 08/26/2020 23:23 CMS VS-Notes Time: 08/26/2020 23:22 MAP= 97 08/26/2020 23:23 CMS ORDERS Discharge patient 08/26/2020 22:53 N/A Ordered: 08/26/2020 22:45 By . Other Reviewed: 08/26/2020 22:53 By . Other Albuterol aerosol x1 [facility] PATIENT NAME: PANCHO LOPEZ [address] Castaneda MEDICAL REC #: [id number] [place] [address] EMERGENCY DEPARTMENT REPORT EMERGENCY DEPARTMENT PHYSICIAN 08/26/2020 22:37 N/A Ordered: 08/26/2020 21:55 By Ruddy Odom Completed Time: 08/26/2020 22:37 By Ruddy Odom Noted Time: 08/26/2020 22:05 JEMA IV hep lock 08/26/2020 21:37 N/A Ordered: 08/26/2020 21:30 By Ruddy Odom Completed Time: 08/26/2020 21:37 By Ruddy Odom Solumedrol (IV)*(125mg/vial) DOSE: 125 mg IV 08/26/2020 21:37 N/A Ordered: 08/26/2020 21:30 By Ruddy Odom Completed Time: 08/26/2020 21:37 By Ruddy Odom Pepcid (IV)(20mg/2ml) DOSE: 20 mg IV 08/26/2020 21:37 N/A Ordered: 08/26/2020 21:30 By Ruddy Odom Completed Time: 08/26/2020 21:37 By Ruddy Odom DISCHARGE Diagnosis: Allergic reaction 08/26/2020 22:46 Disposition: Time: 08/26/2020 22:45 Discharge Time: 08/26/2020 23:23 Type: *Discharge Condition: Stable for admission/discharge/transfe r after emergency evaluation/treatment Category: *NOT APPLICABLE Referral: 08/26/2020 22:46 Admit Physician: . Other PRESCRIPTIONS prednisone 20 mg tablet 08/26/2020 22:45 SI ta bid for 5 days Dispense: Refills: CHARGES [facility] PATIENT NAME: PANCHO LOPEZ [address] MEDICAL REC #: [id number] [place] [address] EMERGENCY DEPARTMENT REPORT EMERGENCY DEPARTMENT PHYSICIAN SIGNATURE Ruddy MARKS [employer] OFFICER SHELBY ALMAGUER RN DPLOR HUBERB [facility] PATIENT NAME: PANCHO LOPEZ [address] MEDICAL REC #: [id number] [place] [address] EMERGENCY DEPARTMENT REPORT EMERGENCY DEPARTMENT PHYSICIAN Normal [facility] LIVER 08-18-2020 Albumin [Mass/Vol] 4.7 g/dL Normal 3.2-5.0 [facility] Comment on above: Performed By: #### L [id number] #### [facility] [address] [place] [address]# [phone] Albumin/Globulin [Mass ratio] 1.9 {ratio} Normal 0.8-2.0 [facility] Comment on above: Performed By: #### L 500.09371 #### [facility] [place] [address] ALK PHOS 92 U/L Normal 45-117 [facility] Comment on above: Performed By: #### L 500.46558 #### [facility] [address] [place] [address] ALT [Catalytic activity/Vol] 29 U/L Normal 13-61 [facility] Comment on above: Result Comment: RESU LTS MAY BE FALSELY DEPRESSED AFTER THE ADMINISTRATION OF SULFASALAZINE AND/OR SULFAPYRIDINE. Performed By: #### L [id number] #### [facility] [address] [place] [address] BILI DIRECT 0.2 MG/DL Normal 0.00-0.36 [facility] Comment on above: Result Comment: NOTE NEW NORMAL RANGE DUE TO REAGENT CHANGE Performed By: #### L 500.58973 #### [facility] [address] [place], [place] [id number] BILI TOTAL 0.70 MG/DL Normal 0.2-1.0 [facility] Comment on above: Performed By: #### L 500.93244 #### [facility] [address] [place] [id number] Globulin (S) [Mass/Vol] 2.5 g/dL Normal 2.2-4.2 [facility] Comment on above: Performed By: #### L 500.14990 #### [facility] [address] [place] [address] Protein [Mass/Vol] 7.2 g/dL Normal 6.0-8.5 [facility] Comment on above: Performed By: #### L 500.37173 #### [facility] [address] [place] [address] SGOT (AST) 24 U/L Normal 8-34 [facility] Comment on above: Result Comment: RESU LTS MAY BE FALSELY DEPRESSED AFTER THE ADMINISTRATION OF SULFASALAZINE AND/OR SULFAPYRIDINE. Performed By: #### L 500.24326 #### [facility] [address] [place] [address] HIV ANTIGEN/ANTIBODY SCREENo n 11-26-2019 HIV AG/AB SCREEN NON-REACTIVE Normal NONREACTIVE [facility] Comment on above: Order Comment: PATIE NT FASTING Result Comment: The [employer] HIV Ag/Ab Combo assay for use on the [employer] iSystem is a two-step immunoassay to determine the presence of HIV-1 p24 antigen as well as antibodies to HIV-1 (Group M and O) and antibodies to HIV-2. Performed By: #### H IV #### [facility] [address] [place] [address] 19-49 Yearson 11-26-2019 19-50 Years Diagnoses/Problems Health Maintenance/Risks Encounter for preventive health examination (V70.0) (Z00.00) Assessed Non-smoker (V49.89) (Z78.9) Exposure to communicable disease (V01.9) (Z20.9) Orders Exposure to communicable disease Hepatitis Panel, Acute (HCFA); Specimen Source:Blood (BLD); Status:Active; Requested for:25Nov2019; Perform:Lab Services - Lab To Draw (Blood Test); Due:23Feb2020;Ordered; For:Exposure to communicable disease; Ordered By:Luis Walsh; HIV Antigen/Antibody Screen; Specimen Source:Blood (BLD); Status:Active; Requested for:25Nov2019; Perform:Lab Services - Lab To Draw (Blood Test); Due:[id number];Ordered; For:Exposure to communicable disease; Ordered By:Luis Walsh; SYPHILIS SCREENING WITH REFLEX; Specimen Source:Blood (BLD); Status:Active; Requested for:25Nov2019; Perform:Lab Services - Lab To Draw (Blood Test); Due:[id number];Ordered; For:Exposure to communicable disease; Ordered By:Luis Walsh; Health Maintenance Complete Blood Count; Specimen Source:Blood (BLD); Status:Active; Requested for:25Nov2019; Perform:Lab Services - Lab To Draw (Blood Test); Due:23Feb2020;Ordered; For:Health Maintenance; Ordered By:Luis Walsh; Comprehensive Metabolic Panel; Status:Active; Requested for:25Nov2019; Perform:Lab Services - Lab To Draw (Blood Test); Due:23Feb2020;Ordered; For:Health Maintenance; Ordered By:Luis Walsh; Lipid Panel; Specimen Source:Blood (BLD); Status:Active; Requested for:25Nov2019; Perform:Lab Services - Lab To Draw (Blood Test); Due:23Feb2020;Ordered; For:Health Maintenance; Ordered By:Luis Walsh; SocHx: Non-smoker Tobacco Use Screening; Status:Complete; Done: 25Nov2019 Perform:Not Applicable;Ordered; For:SocHx: Non-smoker; Ordered By:Tali Rivera; Patient Discussion/Summary His physical exam is normal today and we will update his major blood chemistry. Chief Complaint CPX Adult Risk Screening There are no spiritual/cultural practices/values/needs that are important to know Initial Fall Risk Screening: PANCHO has not fallen in the last 6 months. History of Present Illness there are no concerns today. Concerns raised today include: He has lost quite a bit of weight through diet and exercise. The patient's health since the last visit is described as good. he has regular dental visits. he denies vision problems. he denies hearing loss. Immunizations status: up to date. Lifestyle: he consumes a diverse and healthy diet. he does not have any weight concerns. he exercises regularly. he does not use tobacco. he denies alcohol use. Review of Systems Constitutional: no chills, no fever and no night sweats. Eyes: no blurred vision and no eyesight problems. ENT: no hearing loss, no nasal congestion, no nasal discharge, no hoarseness and no sore throat. Cardiovascular: no chest pain, no intermittent leg claudication, no lower extremity edema, no palpitations and no syncope. Respiratory: no cough, no shortness of breath during exertion, no shortness of breath at rest and no wheezing. Gastrointestinal: no abdominal pain, no constipation, no blood in stools, no diarrhea, no melena, no nausea, no rectal pain and no vomiting. Genitourinary: no dysuria, no change in urinary frequency, no urinary hesitancy and no feelings of urinary urgency. Musculoskeletal: no arthralgias, no back pain and no myalgias. Integumentary: no new skin lesions and no rashes. Neurological: no difficulty walking, no headache, no limb weakness, no numbness and no tingling. Psychiatric: no anxiety, no depression, no anhedonia and no substance use disorders. Endocrine: no recent weight gain and no recent weight loss. Hematologic/Lymphatic: no tendency for easy bruising and no swollen glands. All other systems have been reviewed and are negative for complaint. Constitutional: no fever, no chills, not feeling poorly, not feeling tired, no recent weight gain and no recent weight loss. ENT: no earache, no hearing loss, no nosebleeds, no nasal discharge, no sore throat and no hoarseness. Cardiovascular: the heart rate was not slow, the heart rate was not fast, no chest pain, no palpitations, no intermittent leg claudication and no lower extremity edema. Respiratory: no cough, not coughing up sputum and no wheezing that is consistent with asthma. Gastrointestinal: no abdominal pain, no constipation, no melena, no nausea, no diarrhea, no vomiting and no blood in stools. Musculoskeletal: no arthralgias, no myalgias, no back pain, no joint swelling, no joint stiffness, no limb pain and no limb swelling. Integumentary: no rashes, no skin lesions, no itching, no skin wound and no dry skin. Neurological: no headache, no confusion, no numbness, no dizziness, no tingling and no fainting. All other systems have been reviewed and are negative for complaint. Past Medical History Problems History of Exertional hypotension (458.8) (I95.89) History of exertional chest pain (V13.89) (Z87.898) Resolved Date: 25 Nov 2019 Family History Mother Family history of deafness or hearing loss (V19.2) (Z82.2) Family history of hypertension (V17.49) (Z82.49) Sibling Family history of hypertension (V17.49) (Z82.49) Social History Problems Never smoked any substance (V49.89) (Z78.9) Non-smoker (V49.89) (Z78.9) Allergies Medication No Known Drug Allergies Recorded By: Tali Rivera; 11/25/2019 7:07:26 AM Current Meds Medication NameInstruction No Reported Medications Vitals Vital Signs Recorded: 25Nov2019 07:08AM [id number], LUE, Sitting Xcpgiunqc35, LUE, Sitting Blood Pressure Cuff SizeLarge Height5 ft 10.25 in Tfmase145 lb 6 oz BMI Flyrmlvtuv56.69 BSA Calculated2.04 Fall Screeninga) No falls within the last year Physical Exam Constitutional: Alert and in no acute distress. Well developed, well nourished. Eyes: Normal external exam. Pupils were equal in size, round, reactive to light (PERRL) with normal accommodation and extraocular movements intact (EOMI). Ears, Nose, Mouth, and Throat: External inspection of ears and nose: Normal. Hearing: Normal. Nasal mucosa, septum, and turbinates: Normal. Lips, teeth, and gums: Normal. Oropharynx: Normal. Neck: No neck mass was observed. Supple. Thyroid not enlarged and there were no palpable thyroid nodules. Cardiovascular: Heart rate and rhythm were normal, normal S1 and S2, no gallops, no murmurs and no pericardial rub. Pedal pulses: Normal. No peripheral edema. Pulmonary: No respiratory distress. Clear bilateral breath sounds. Abdomen: Soft nontender; no abdominal mass palpated. No organomegaly. Musculoskeletal: No joint swelling seen, normal movements of all extremities. Range of motion: Normal. Muscle strength/tone: Normal. Skin: Normal skin color and pigmentation, normal skin turgor, and no rash. Psychiatric: Judgment and insight: Intact. Mood and affect: Normal. Lymphatic: No cervical lymphadenopathy. Constitutional - Well developed, well nourished, well hydrated and no acute distress. Vital signs reviewed. Head and Face - Normocephalic, atraumatic. Eyes - No redness, edema or visible abnormality of conjunctiva or lids. Neck - Full range of motion. No significant adenopathy. Pulmonary - normal respiratory effort. Lungs are clear without rales, rhonchi or wheezing. Cardiovascular - Regular rate and rhythm. No significant murmur. Skin - No significant rash or lesions. Psychiatric - Mood and affect: Normal. Results/Data IO UA (automated w/o microscopy)25Nov2019 07:14AMMacCchelsea Luis Test NameResultFlagReference IO Glucose - UrineNegativeNormal IO Bilirubin(+)smallNegative IO KetonesNegativeNegative IO Specific Gravity1.0251.000-1.030 IO BloodNegativeNegative IO pH5.05.0-8.0 IO Protein, UrineNegativeNegative IO UrobilinogenNormalNormal IO Nitrite, UrineNegativeNegative IO LeukocytesNegativeNegative IO Glucose - UrineNegativeNormal IO Bilirubin(+)smallNegative IO KetonesNegativeNegative IO Specific Gravity1.0251.000-1.030 IO BloodNegativeNegative IO pH5.05.0-8.0 IO Protein, UrineNegativeNegative IO UrobilinogenNormalNormal IO Nitrite, UrineNegativeNegative IO LeukocytesNegativeNegative Signatures Electronically signed by : Luis Walsh MD; Nov 26 2019 4:27AM EST Normal [facility] CBCon 11-25-2019 Erythrocyte distribution width (RBC) [Ratio] 12.1 % Normal 11.5 - 14.5 [facility] Comment on above: Order Comment: PATIE NT FASTING Performed By: #### C BC #### [facility] [address] [place] [address] Hematocrit (Bld) [Volume fraction] 45.9 % Normal 41.0 - 52.0 [facility] Comment on above: Order Comment: PATIE NT FASTING Performed By: #### C BC #### [facility] [address] [place] [address] Hemoglobin (Bld) [Mass/Vol] 16.0 g/dL Normal 13.5 - 17.5 [facility] Comment on above: Order Comment: PATIE NT FASTING Performed By: #### C BC #### [facility] [address] [place] [address] MCHC (RBC) [Mass/Vol] 34.9 g/dL Normal 32.0 - 36.0 [facility] Comment on above: Order Comment: PATIE NT FASTING Performed By: #### C BC #### [facility] [address] [place] [address] MCV (RBC) [Entitic vol] 84 fL Normal 80 - 100 [facility] Comment on above: Order Comment: PATIE NT FASTING Performed By: #### C BC #### [facility] [address] [place] [address] Nucleated RBC/100 WBC (Bld) [Ratio] 0.0 /100 WBC Normal 0.0-0.0 [facility] Comment on above: Order Comment: PATIE NT FASTING Performed By: #### C BC #### [facility] [address] [place] [address] Platelets (Bld) [#/Vol] 221 10*3/uL Normal 150 - 450 [facility] Comment on above: Order Comment: PATIE NT FASTING Performed By: #### C BC #### [facility] [address] [place] [address] RBC (Bld) [#/Vol] 5.44 x10E12/L Normal 4.50 - 5.90 [facility] Comment on above: Order Comment: PATIE NT FASTING Performed By: #### C BC #### [facility] [address] [place] [address] WBC (Bld) [#/Vol] 4.0 10*3/uL Low 4.4 - 11.3 [facility] Comment on above: Order Comment: PATIE NT FASTING Performed By: #### C BC #### [facility] [address] [place] [address] COMPREHENSIVE PANELon 2019 Albumin [Mass/Vol] 5.0 g/dL Normal 3.4 - 5.0 [facility] Comment on above: Order Comment: PATIE NT FASTING Performed By: #### C MP #### [facility] [address] [place] [address] ALP [Catalytic activity/Vol] 74 U/L Normal 33 - 120 [facility] Comment on above: Order Comment: PATIE NT FASTING Performed By: #### C MP #### [facility] [address] [place] [address] ALT [Catalytic activity/Vol] 18 U/L Normal 10 - 52 [facility] Comment on above: Order Comment: PATIE NT FASTING Result Comment: Estela ents treated with Sulfasalazine may generate falsely decreased results for ALT. Performed By: #### C MP #### [facility] [address] [place] [address] Anion gap [Moles/Vol] 11 mmol/L Normal 10 - 20 [facility] Comment on above: Order Comment: PATIE NT FASTING Performed By: #### C MP #### [facility] [address] [place] [address] AST [Catalytic activity/Vol] 22 U/L Normal 9 - 39 [facility] Comment on above: Order Comment: PATIE NT FASTING Performed By: #### C MP #### [facility] [address] [place] [address] Bilirubin [Mass/Vol] 2.5 mg/dL High 0.0 - 1.2 [facility] Comment on above: Order Comment: PATIE NT FASTING Performed By: #### C MP #### [facility] [address] [place] [address] Calcium [Mass/Vol] 9.9 mg/dL Normal 8.6 - 10.6 [facility] Comment on above: Order Comment: PATIE NT FASTING Performed By: #### C MP #### [facility] [address] [place] [address] Chloride [Moles/Vol] 102 mmol/L Normal 98 - 107 [facility] Comment on above: Order Comment: PATIE NT FASTING Performed By: #### C MP #### [facility] [address] [place] [address] Creatinine [Mass/Vol] 0.85 mg/dL Normal 0.50 - 1.30 [facility] Comment on above: Order Comment: PATIE NT FASTING Performed By: #### C MP #### [facility] [address] [place] [address] GFR- AM. >60 Normal >60 [facility] Comment on above: Order Comment: PATIE NT FASTING Result Comment: CALC ULATIONS OF ESTIMATED GFR ARE PERFORMED USING THE MDRD STUDY EQUATION FOR THE IDMS-TRACEABLE CREATININE METHODS. CLIN CHEM 2007;53:766-72 Performed By: #### C MP #### [facility] [address] [place] [address] GFR-NON AM. >60 Normal >60 [facility] Comment on above: Order Comment: PATIE NT FASTING Performed By: #### C MP #### [facility] [address] [place] [address] Glucose [Mass/Vol] 72 mg/dL Low 74 - 99 [facility] Comment on above: Order Comment: PATIE NT FASTING Performed By: #### C MP #### [facility] [address] [place] [address] HCO3 (Bld) [Moles/Vol] 32 mmol/L Normal 21 - 32 [facility] Comment on above: Order Comment: PATIE NT FASTING Performed By: #### C MP #### [facility] [address] [place] [address] Potassium [Moles/Vol] 4.3 mmol/L Normal 3.5 - 5.3 [facility] Comment on above: Order Comment: PATIE NT FASTING Performed By: #### C MP #### [facility] [address] [place] [address] Protein [Mass/Vol] 7.5 g/dL Normal 6.4 - 8.2 [facility] Comment on above: Order Comment: PATIE NT FASTING Performed By: #### C MP #### [facility] [address] [place] [address] Sodium [Moles/Vol] 141 mmol/L Normal 136 - 145 [facility] Comment on above: Order Comment: PATIE NT FASTING Performed By: #### C MP #### [facility] [address] [place] [address] Urea nitrogen [Mass/Vol] 10 mg/dL Normal 6 - 23 [facility] Comment on above: Order Comment: PATIE NT FASTING Performed By: #### C MP #### [facility] [address] [place] [address] HEPATITIS PANEL,ACUTE (HCFA) on 11-25-2019 HEP.B SURFACE AG NONREACTIVE Normal NONREACTIVE [facility] Comment on above: Order Comment: PATIE NT FASTING Result Comment: Estela ents receiving more than 5 mg/day of biotin may have interference in test results. A sample should be taken no sooner than eight hours after previous dose. Contact the testing laboratory for additional information. Performed By: #### H EPA2 #### [facility] [address] [place] [id number] HEPATITIS A AB-IGM NON-REACTIVE Normal NONREACTIVE [facility] Comment on above: Order Comment: PATIE NT FASTING Result Comment: Estela ents receiving more than 5 mg/day of biotin may have interference in test results. A sample should be taken no sooner than eight hours after previous dose. Contact the testing laboratory for additional information. Performed By: #### H EPA2 #### [facility] [address] [place] [address] HEPATITIS B CORE AB,IGM NON-REACTIVE Normal NONREACTIVE [facility] Comment on above: Order Comment: PATIE NT FASTING Result Comment: Estela ents receiving more than 5 mg/day of biotin may have interference in test results. A sample should be taken no sooner than eight hours after previous dose. Contact the testing laboratory for additional information. Performed By: #### H EPA2 #### [facility] [address] [place] [address] HEPATITIS C AB NON-REACTIVE Normal NONREACTIVE [facility] Comment on above: Order Comment: PATIE NT FASTING Result Comment: Estela ents receiving more than 5 mg/day of biotin may have interference in test results. A sample should be taken no sooner than eight hours after previous dose. Contact the testing laboratory for additional information. Performed By: #### H EPA2 #### [facility] [address] [place] [address] HIV ANTIGEN/ANTIBODY SCREENo n 11-25-2019 Lab Specimen Source Normal [facility] Comment on above: Order Comment: PATIE NT FASTING Performed By: #### H IV #### [facility] [address] [place] [address] Performed By: #### C MP #### [facility] [address] [place] [address] Performed By: #### H EPA2 #### [facility] [address] [place] [address] Performed By: #### S YPHR #### [facility] [address] [place] [address] Performed By: #### L IPID #### [facility] [address] [place] [address] Hematologyon 11-25-2019 Hematocrit (Bld) [Volume fraction] 45.9 % See Below [facility] Work Phone: Comment on above: Reference Range: 41. 0 - 52.0 PATIENT FASTING Hemoglobin (Bld) [Mass/Vol] 16.0 g/dL See Below [facility] Work Phone: Comment on above: Reference Range: 13. 5 - 17.5 PATIENT FASTING MCV (RBC) [Entitic vol] 84 fL 80 - 100 [facility] [email or web address] Work Phone: Comment on above: PATIENT FASTING Platelets (Bld) [#/Vol] 221 {x10E9/L} 150 - 450 [facility] Work Phone: Comment on above: PATIENT FASTING RBC (Bld) [#/Vol] 5.44 {x10E12/L} See Below [facility] [email or web address] Work Phone: Comment on above: Reference Range: 4.5 0 - 5.90 PATIENT FASTING WBC (Bld) [#/Vol] 0.0 {/100_WBC} 0.0-0.0 [facility] Work Phone: Comment on above: PATIENT FASTING WBC (Bld) [#/Vol] 4.0 {x10E9/L} below low threshold 4.4 - 11.3 [facility] [email or web address] Work Phone: Comment on above: PATIENT FASTING Hepatitis Panel, Acute (HCFA )on 11-25-2019 Hepatitis Panel, Acute (HCFA) NON-REACTIVE See Below [facility] Work Phone: Comment on above: Reference Range: NON REACTIVE Patients receiving more than 5 mg/day of biotin may have interference in test results. A sample should be taken no sooner than eight hours after previous dose. Contact the testing laboratory for additional information. PATIENT FASTING SOURCE: Reference Ra nge: NONREACTIVE Patients receiving more than 5 mg/day of biotin may have interference in test results. A sample should be taken no sooner than eight hours after previous dose. Contact the testing laboratory for additional information. SOURCE: Reference Ra nge: NONREACTIVEThe [employer] L[employer]ER HIV Ag/Ab Combo assay for use on the [employer] is a two-step immunoassay to determine the presenceof HIV-1 p24 antigen as well as antibodies to HIV-1 (Group M and O) and antibodies to HIV-2. Hepatitis Panel, Acute (HCFA) NONREACTIVE See Below [facility] Work Phone: Comment on above: Reference Range: NON REACTIVE Patients receiving more than 5 mg/day of biotin may have interference in test results. A sample should be taken no sooner than eight hours after previous dose. Contact the testing laboratory for additional information. PATIENT FASTING IO UA (automated w/o microsc opy)on 11-25-2019 Protein (U) [Mass/Vol] Negative Negative [facility] Work Phone: IO UA (automated w/o microscopy) Negative Normal [facility] Work Phone: IO UA (automated w/o microscopy) (+)small Negative [facility] Work Phone: IO UA (automated w/o microscopy) Normal Normal [facility] Work Phone: IO UA (automated w/o microscopy) 5.0 5.0-8.0 [facility] Work Phone: IO UA (automated w/o microscopy) 1.025 1.000-1.030 [facility] Work Phone: LIPID PANEL (CORONARY RISK 2 )on 11-25-2019 Cholesterol [Mass/Vol] 138 mg/dL Normal 0 - 199 [facility] Comment on above: Order Comment: PATIE NT FASTING Result Comment: . AGE DESIRABLE BORDERLINE HIGH HIGH 0-19 Y 0 - 169 170 - 199 >/= 200 20-24 Y 0 - 189 190 - 224 >/= 225 >24 Y 0 - 199 200 - 239 >/= 240 All ranges are based on fasting samples. Specific therapeutic targets will vary based on patient-specific cardiac risk. . Pediatric guidelines reference:Pediatrics 2011, 128(S5). Adult guidelines reference: NCEP ATPIII Guidelines, SVETLANA 2001, 258:2486-97 . Venipuncture immediately after or during the administration of Metamizole may lead to falsely low results. Testing should be performed immediately prior to Metamizole dosing. Performed By: #### L IPID #### [facility] [id number] [place] [address] Cholesterol in HDL [Mass/Vol] 38.2 mg/dL Abnormal [facility] Comment on above: Order Comment: PATIE NT FASTING Result Comment: . AGE VERY LOW LOW NORMAL HIGH 0-19 Y < 35 < 40 40-45 ---- 20-24 Y ---- < 40 >45 ---- >24 Y ---- < 40 40-60 >60 . Performed By: #### L IPID #### [facility] [id number] [place] [address] Cholesterol in LDL [Mass/Vol] 82 mg/dL Normal 0 - 99 [facility] Comment on above: Order Comment: PATIE NT FASTING Result Comment: . NEAR BORD AGE DESIRABLE OPTIMAL HIGH HIGH VERY HIGH 0-19 Y 0 - 109 --- 110-129 >/= 130 ---- 20-24 Y 0 - 119 --- 120-159 >/= 160 ---- >24 Y 0 - 99 100-129 130-159 160-189 >/=190 . Performed By: #### L IPID #### [facility] [id number] [place] [address] Cholesterol in VLDL [Mass/Vol] 18 mg/dL Normal 0 - 40 [facility] Comment on above: Order Comment: PATIE NT FASTING Performed By: #### L IPID #### [facility] [id number] [place] [address] Cholesterol.total/C holesterol in HDL [Mass ratio] 3.6 {ratio} Normal [facility] Comment on above: Order Comment: PATIE NT FASTING Result Comment: REF VALUES DESIRABLE < 3.4 HIGH RISK > 5.0 Performed By: #### L IPID #### [facility] [id number] [place] [address] Triglyceride [Mass/Vol] 88 mg/dL Normal 0 - 149 [facility] Comment on above: Order Comment: PATIE NT FASTING Result Comment: . AGE DESIRABLE BORDERLINE HIGH HIGH VERY HIGH 0 D-90 D 19 - 174 ---- ---- ---- 91 D- 9 Y 0 - 74 75 - 99 >/= 100 ---- 10-19 Y 0 - 89 90 - 129 >/= 130 ---- 20-24 Y 0 - 114 115 - 149 >/= 150 ---- >24 Y 0 - 149 150 - 199 200- 499 >/= 500 . Venipuncture immediately after or during the administration of Metamizole may lead to falsely low results. Testing should be performed immediately prior to Metamizole dosing. Performed By: #### L IPID #### [facility] [id number] [place] [address] Lipid Panelon 11-25-2019 Cholesterol [Mass/Vol] 138 mg/dL 0 - 199 [facility] Work Phone: Comment on above: SOURCE: . AGE DESIRA BLE BORDERLINE HIGH HIGH 0-19 Y 0 - 169 170 - 199 >/= 200 20-24 Y 0 - 189 190 - 224 >/= 225 >24 Y 0 - 199 200 - 239 >/= 240 All ranges are based on fasting samples. Specific therapeutic targets will vary based on patient-specific cardiac risk.. Pediatric guidelines reference:Pediatrics 2011, 128(S5). Adult guidelines reference: NCEP ATPIII Guidelines, SVETLANA 2001, 258:2486-97. Venipuncture immediately after or during the administration of Metamizole may lead to falsely low results. Testing should be performed immediately prior to Metamizole dosing. PATIENT FASTING Cholesterol in HDL [Mass/Vol] 38.2 mg/dL Abnormal [facility] [employer] Work Phone: Comment on above: . AGE VERY LOW LOW N ORMAL HIGH 0-19 Y < 35 < 40 40-45 ---- 20- 24 Y ---- < 40 >45 ---- >24 Y ---- < 40 40-60 >60. PATIENT FASTING Cholesterol in LDL [Mass/Vol] 82 mg/dL 0 - 99 [facility] [email or web address] Work Phone: Comment on above: . NEAR BORD AGE SOUMYA RABLE OPTIMAL HIGH HIGH VERY HIGH 0-19 Y 0 - 109 --- 110-129 >/= 130 ---- 20-24 Y 0 - 119 --- 120-159 >/= 160 ---- >24 Y 0 - 99 100-129 130-159 160-189 >/=190. PATIENT FASTING Cholesterol.total/C holesterol in HDL [Mass ratio] 3.6 {ratio} [facility] [email or web address] Work Phone: Comment on above: REF VALUESDESIRABLE < 3.4HIGH RISK > 5.0 PATIENT FASTING Triglyceride [Mass/Vol] 88 mg/dL 0 - 149 [facility] [email or web address] Work Phone: Comment on above: . AGE DESIRABLE BORD AR HIGH HIGH VERY HIGH 0 D-90 D 19 - 174 ---- ---- ----91 D- 9 Y 0 - 74 75 - 99 >/= 100 ---- 10-19 Y 0 - 89 90 - 129 >/= 130 ---- 20-24 Y 0 - 114 115 - 149 >/= 150 ---- >24 Y 0 - 149 150 - 199 200- 499 >/= 500. Venipuncture immediately after or during the administration of Metamizole may lead to falsely low results. Testing should be performed immediately prior to Metamizole dosing. PATIENT FASTING Lipid Panel 18 mg/dL 0 - 40 [facility] Work Phone: Comment on above: PATIENT FASTING Metabolic Panelon 11-25-2019 ALP [Catalytic activity/Vol] 74 U/L 33 - 120 [facility] Work Phone: Comment on above: PATIENT FASTING Anion gap [Moles/Vol] 11 mmol/L 10 - 20 [facility] Work Phone: Comment on above: PATIENT FASTING Bilirubin [Mass/Vol] 2.5 mg/dL above high threshold 0.0 - 1.2 [facility] Work Phone: Comment on above: PATIENT FASTING Calcium [Mass/Vol] 9.9 mg/dL 8.6 - 10.6 [facility] Work Phone: Comment on above: PATIENT FASTING Chloride [Moles/Vol] 102 mmol/L 98 - 107 [facility] Work Phone: Comment on above: PATIENT FASTING CO2 [Moles/Vol] 32 mmol/L 21 - 32 [facility] [email or web address] Work Phone: Comment on above: PATIENT FASTING Creatinine [Mass/Vol] 0.85 mg/dL See Below [facility] Work Phone: Comment on above: Reference Range: 0.5 0 - 1.30 PATIENT FASTING Glucose [Mass/Vol] 72 mg/dL below low threshold 74 - 99 [facility] Work Phone: Comment on above: SOURCE: PATIENT FASTING Potassium [Moles/Vol] 4.3 mmol/L 3.5 - 5.3 [facility] Work Phone: Comment on above: PATIENT FASTING Protein [Mass/Vol] 7.5 g/dL 6.4 - 8.2 [facility] Work Phone: Comment on above: PATIENT FASTING Sodium [Moles/Vol] 141 mmol/L 136 - 145 [facility] Work Phone: Comment on above: PATIENT FASTING Urea nitrogen [Mass/Vol] 10 mg/dL 6 - 23 [facility] Work Phone: Comment on above: PATIENT FASTING Otheron 11-25-2019 Albumin BCP dye [Mass/Vol] 5.0 g/dL 3.4 - 5.0 [facility] Work Phone: Comment on above: PATIENT FASTING ALT With P-5'-P [Catalytic activity/Vol] 18 U/L 10 - 52 [facility] Work Phone: Comment on above: Patients treated wit Sulfasalazine may generate falsely decreased results for ALT. PATIENT FASTING AST With P-5'-P [Catalytic activity/Vol] 22 U/L 9 - 39 [facility] Work Phone: Comment on above: PATIENT FASTING Erythrocyte distribution width (RBC) [Ratio] 12.1 % See Below [facility] Work Phone: Comment on above: Reference Range: 11. 5 - 14.5 PATIENT FASTING MCHC (RBC) [Mass/Vol] 34.9 g/dL See Below [facility] Work Phone: Comment on above: Reference Range: 32. 0 - 36.0 PATIENT FASTING >60 >60 [facility] Work Phone: Comment on above: PATIENT FASTING CALCULATIONS OF PATO MATED GFR ARE PERFORMED USING THE MDRD STUDY EQUATION FOR THE IDMS-TRACEABLE CREATININE METHODS. CLIN CHEM 2007;53:766-72 SYPHILIS SCREENING WITH REFL EXon 11-25-2019 SYPHILIS TOTAL AB NONREACTIVE Normal NONREACTIVE [facility] Comment on above: Order Comment: PATIE NT FASTING Result Comment: No s ignificant level of Treponema pallidum antibody detected. Repeat testing in 2 to 4 weeks may be considered if early infection or incubating syphilis infection is suspected. Performed By: #### S [facility] #### [facility] [id number] [place] [address] T. pallidum IgG+IgM IA Ql (S) NONREACTIVE See Below -[facility] Work Phone: Comment on above: SOURCE: Reference nge: NONREACTIVENo significant level of Treponema pallidum antibody detected. Repeat testing in 2 to 4 weeks may be considered if early infection or incubating syphilis infection is suspected. PATIENT FASTING EMERGENCY DEPARTMENTon 08-23 EMERGENCY DEPARTMENT [address] [address] HEALTH INFORMATION MANAGEMENT EMERGENCY DEPARTMENT : [phone] Signed Patient: PANCHO LOPEZ Acct:[id number] MRUN : [id number] : 1985 Sex: M Loc: ED ADM Date: Room/Bed: DISC Date: 08/22/19 History of Present Illness - General Chief complaint: Allergic Reaction Stated complaint: ALLERGIC REACTION Symptom onset: tonight HPI: Pt c/o hives all over body after eating nicaraguan food tonight around 9pm. Pt took Benadryl at home without relief. pt is obvioulsy red with hives noted diffusely around neck, torso, and arms. No difficulty breathing noted. Lings are clear bilat. Time Seen by Provider: 08/22/19 02:03 Nurses Notes Reviewed and Agreed With?: Yes Source: Patient, RN notes reviewed, Old records Mode of Transport: Ambulatory - History of Present Illness Initial Comments: 33-year-old male ate at a [place] restaurant and after the meal developed total body hives and mid facial swelling with nasal congestion. He has no angioedema. He has no wheezing he has no complaint of chest pain. He's had no nausea, vomiting, diarrhea. MD Complaint: allergic reaction, facial swelling -: hour(s) Exposure: food Symptoms: rash, itching, facial swelling. denies: lip swelling, difficulty swallowing, difficulty breathing, hoarseness, dizziness, nausea, vomiting, abdominal pain Severity: moderate Treatment Prior to Arrival: benadryl Previous Allergy History: none - Related Data Home Medications Medication Instructions Recorded Confirmed Diphenhydramine HCl [Benadryl 25 mg PO Q6H #20 tablet 08/22/19 Allergy] Epinephrine [Epipen 2-Rodo] 0.3 mg IM .PER.INSTRUCTIONS #2 ml 08/22/19 Prednisone [Prednisone 20 mg 40 mg PO DAILY #10 tablet 08/22/19 Tablet] Review of System - Recent travel Recent travel outside [place] No reported travel outside [place] - Constitutional Constitutional: Present: Well developed, Well nourished, well hydrated, Non-toxic. Absent: fever - Nose,Throat,Mouth Nose (ROS): Present: congestion Throat: Absent: pain, swelling, hoarse Mouth: Present: other (No angioedema) - Respiratory Respiratory: Absent: cough, short of breath, wheezing - CV Cardiology: Absent: chest pain - GI Gastrointestinal/Abdominal: Absent: abdominal pain, nausea, vomiting - Neuro Neurological: Absent: anxiety, headache - Integumentary Skin: Present: rash, pruritis - Allergic/Immunologic Immunological/Allergic: Absent: food allergy - Psychiatric Psychiatric: Present: Normal Affect, Normal Mood ED PMH/Social HX/Family HX - Respiratory Hx Respiratory Disorders: No - Cardiovascular Hx Cardiac Disorders: No - Neurological Hx Neurological Disorder: No - Endocrine Hx Endocrine Disorders: No - Gastrointestinal Hx Gastrointestinal Disorders: No - Genitourinary Hx Genitourinary Disorders: No - Musculoskeletal Hx Musculoskeletal Disorders: No - Reproductive Hx Reproductive Disorders: No - Psychological Hx Psychosocial Problems: No - HEENT Hx Ear, Nose Throat Disorders: No - Cancer Hx Cancer: No - Social History Able to Read: Yes Able to Write: Yes Smoking Status: Heavy Smoker (>10 cig/day) Smoked in Last year: Yes Any Secondhand smoke exposure Reported?: Yes Hx Chewing Tobacco Use: No Alcohol Use: Rarely Any recreational drug use reported?: No Hx Substance Use Treatment: No Feels Threatened In Home Environment: No Feels Threatened In a Relationship: No Hx Physical Abuse: No Hx Emotional Abuse: No Hx Suspected Abuse: No - Suicide/Homicide Screen Past 2 weeks, Have you felt down, depressed or hopeless?: No Past 2 Wks, Have you had thoughts killing yourself or others: No In your lifetime, have you attempt kill yourself or others?: No In your lifetime, When did this Happen?: Not Applicable General Exam - Pertinent Findings MY PERTINENT FINDINGS ARE FOLLOWS:: MY PERTINENT FINDINGS ARE FOLLOWS: (Awake alert and orien gregor 33-year-old male with notable midface redness generalized urticaria. Patient has nasal congestio n. He denies any feeling of swelling of the mucous membranes of his throat or mouth. He denies any d ifficulty breathing or wheezing. He denies any abdominal pain or nausea or vomiting.) - General Limitations: Complains of: no limitations. Denies: language barrier, altered mental status Constitutional: Present: Well developed, Well nourished, well hydrated, Non-toxic. Absent: fever - Head Head exam: Present: atraumatic, normocephalic - Eye Eye exam: Present: EOMI Pupils: Present: PERRL - ENT ENT exam: Present: normal orophraynx, mucous membranes moist, normal external ear exam, Posterior Pharynx Non-erethemetous, Nasal Swelling. Absent: No Nasal Discharge, no ear drainage - Neck Neck exam: Present: Supple - Respiratory Respiratory exam: Present: lungs clear and equal bilaterally - Cardiovascular Cardiovascular Exam: Present: regular rate, normal rhythm - GI/Abdominal GI/Abdominal exam: Present: soft, non tender - Neurological Exam Neurological exam: Present: alert, oriented X3 - Psychiatric Psychiatric exam: Present: normal affect, normal mood - Skin Skin Color: Present: Flushed Skin exam: Present: urticaria - Vital Signs Vital Signs 08/22/19 08/22/19 08/22/19 01:57 02:27 03:33 Temperature 97.2 F Pulse Rate 78 Pulse Rate [ 82 78 Pulse Ox] Respiratory 20 18 Rate Blood Pressure 143/91 H Blood Pressure 161/84 H 151/90 [Left Arm] O2 Sat by Pulse 100 100 Oximetry(%) 08/22/19 04:42 Temperature Pulse Rate Pulse Rate [ 84 Pulse Ox] Respiratory 16 Rate Blood Pressure Blood Pressure 165/84 H [Left Arm] O2 Sat by Pulse 99 Oximetry(%) Course - Reevaluation(s) Reevaluation #1: 08/23/19 01:12 Is given epinephrine 0.3 subcutaneous, Benadryl 25 IV, Decadron 10 g IV, Pepcid 40 mg IV. He was observed in the emergency department for several hours and had marked improvement with complete re solution of the redness of the face and the urticaria. Plan is to send him home with 2 epi-pins. He' s going to use Benadryl Pepcid epi-pens as directed. MDM Allergic Reaction - Lab Data Result diagrams: 08/22/19 02:10 08/22/19 02:10 Lab Results 08/22/19 08/22/19 Range/Units 02:10 02:10 WBC 8.0 (3.6-10.8) K/uL RBC 5.11 (4.13-5.69) M/uL Hgb 15.1 (12.4-17.3) g/dL Hct 44.5 (36.7-50.6) % MCV 87.0 (80.0-94.0) fL MCH 29.4 (27.0-31.0) pg MCHC 33.8 (33.0-37.0) g/dL RDW 13.4 (11.5-14.5) % Plt Count 230 (148-402) K/uL MPV 9.5 (7.4-10.4) fL Neut % (Auto) 57.9 (43.0-65.0) % Lymph % (Auto) 28.8 (17.0-45.5) % [place] % (Auto) 8.1 (5.5-11.7) % Eos % (Auto) 4.6 H (0.9-2.9) % Baso % (Auto) 0.6 (0.2-1.0) % Absolute Neuts (auto) 4.7 (2.2-4.8) K/uL Absolute Lymphs (auto) 2.3 (1.3-2.9) K/uL Absolute Monos (auto) 0.7 (0.3-0.8) K/uL Absolute Eos (auto) 0.4 H (0.0-0.2) K/uL Absolute Basos (auto) 0.1 (0.0-0.1) K/uL Nucleated RBC % 0 % Nucleated RBCs # 0 K/uL Sodium 144 (132-145) mmol/L Potassium 3.7 (3.3-5.1) mmol/L Chloride 107 (94-110) mmol/L Total Carbon Dioxide 27 (21-34) mmol/L Anion Gap 13.7 (8.0-16.0) mmol/L BUN 17.5 (3.2-26.9) mg/dL Creatinine 1.06 (0.50-1.17) mg/dL Est GFR (MDRD) Af Amer > 60 (>60) Est GFR (MDRD) Non-Af > 60 (>60) BUN/Creatinine Ratio 17 (6-20) Glucose 150 H (65-100) mg/dL Calcium 8.8 (8.2-10.0) mg/dL Orders: Diphenhydramine HCl [Benadryl Allergy] 25 mg PO Q6H #20 tablet 08/22/19 [Rx] Epinephrine [Epipen 2-Rodo] 0.3 mg IM .PER.INSTRUCTIONS #2 ml 08/22/19 [Rx] Prednisone [Prednisone 20 mg Tablet] 40 mg PO DAILY #10 tablet 08/22/19 [Rx] Medications Discontinued Medications Dexamethasone Sodium Phosphate (Decadron 10 Mg/Ml Injection) 10 mg IVP STAT STA Stop: 08/22/19 02:05 Last Admin: 08/22/19 02:22 Dose: 10 mg Documented by: NOEMI Diphenhydramine HCl (Benadryl 50 Mg/Ml Injection) 25 mg IVP STAT STA Stop: 08/22/19 02:06 Last Admin: 08/22/19 02:23 Dose: 25 mg Documented by: NOEMI Epinephrine HCl (Epinephrine 1:1000 Injection) 0.3 mg SQ ONE ONE Stop: 08/22/19 02:26 Last Admin: 08/22/19 02:27 Dose: 0.3 mg Documented by: NOEMI Sodium Chloride (Sodium Chloride 0.9 % 1000 Ml) 1,000 mls @ 0 mls/hr IV .Q0M STA Stop: 08/22/19 02:05 Last Admin: 08/22/19 02:18 Dose: 1,000 mls/hr Documented by: NOEMI Famotidine 40 mg/ Sodium (Chloride) 254 mls @ 0 mls/hr IVPB STAT STA Stop: 08/22/19 02:07 Last Admin: 08/22/19 02:21 Dose: 250 mls/hr, 250 mls/hr Documented by: [email or web address] - Radiology Data IMPRESSIONS Chest X-Ray 08/22/19 02:04 IMPRESSION: No acute process. ED Discharge Summary - Discharge Data Clinical Impression: Allergic reaction Condition: Improved Disposition: 01 HOME, SELF-CARE Referrals: SARAY PEARSON [Primary Care Provider] - Home Medications: Ambulatory Orders Medication Instructions Recorded Diphenhydramine HCl [Benadryl 25 mg PO Q6H #20 tablet 08/22/19 Allergy] Epinephrine [Epipen 2-Rodo] 0.3 mg IM .PER.INSTRUCTIONS #2 ml 08/22/19 Prednisone [Prednisone 20 mg 40 mg PO DAILY #10 tablet 08/22/19 Tablet] Time Seen by Provider: 08/22/19 02:03 - Dictation Amendments/Documentation: Mojiva Document Only Electronically Generated By: MASOUD LU Generated Date/Time: 08/22/19 0431 Electronically Signed By: MASOUD LU Signed Date/Time 08/23/19 0113 Co Signed Electronically By: Co Signed Date/Time: CC: SARAY PEARSON Normal [facility] Basic Metabolic Panelon - Anion gap [Moles/Vol] 13.7 mmol/L Normal 8.0-16.0 [facility] Comment on above: Performed By: #### B MP #### [address] [address] Calcium [Mass/Vol] 8.8 mg/dL Normal 8.2-10.0 [facility] Comment on above: Performed By: #### B MP #### [facility] [place] [address] Chloride [Moles/Vol] 107 mmol/L Normal 94-110 [facility] Comment on above: Performed By: #### B MP #### [id number] [place] [address] CO2 [Moles/Vol] 27 mmol/L Normal 21-34 [facility] Comment on above: Performed By: #### B MP #### [facility] [place] [address] [place] [address] Creatinine [Mass/Vol] 1.06 mg/dL Normal 0.50-1.17 [facility] Comment on above: Performed By: #### B MP #### [facility] [place] [address] [place] [address] GFR/1.73 sq M predicted among blacks MDRD (S/P/Bld) [Vol rate/Area] mL/min/{1.73_m2} Normal >60 [facility] Comment on above: Result Comment: [employer] yisel Kidney Disease less than 60 mL/min/1.73 m2 Kidney Failure less than 15 mL/min/1.73 m2 Average estimated GFR by age: 30-39 years 107 mL/min/1.73 m2 Performed By: #### B MP #### [facility] [place] [address] [place] [address] GFR/1.73 sq M predicted among non-blacks MDRD (S/P/Bld) [Vol rate/Area] mL/min/{1.73_m2} Normal >60 [facility] Comment on above: Performed By: #### B MP #### [facility] [place] [address] [place] [address] Glucose [Mass/Vol] 150 mg/dL High 65-100 [facility] Comment on above: Performed By: #### B MP #### [facility] [place] [address] [place] [address] Potassium [Moles/Vol] 3.7 mmol/L Normal 3.3-5.1 [facility] Comment on above: Performed By: #### B MP #### [facility] [place] [address] [place] [address] Sodium [Moles/Vol] 144 mmol/L Normal 132-145 [facility] Comment on above: Performed By: #### B MP #### [facility] [place] [address] [place] [address] Urea nitrogen [Mass/Vol] 17.5 mg/dL Normal 3.2-26.9 [facility] Comment on above: Performed By: #### B MP #### [facility] [place] [address] [facility] [place] [address] Urea nitrogen/Creatinine [Mass ratio] 17 mg/mg Normal 6-20 [facility] Comment on above: Performed By: #### B MP #### [facility] [address] [place] [address] CBC w/Auto Differentialon Anemia [employer] STORE ASSOCIATE Normal [facility] Comment on above: Performed By: #### C BC #### [facility] [address] [place] [address] Anisocytosis Ql (Bld) BOOK STORE ASSOCIATE Normal [facility] Comment on above: Performed By: #### C BC #### [facility] [place] [address] [place] [address] Basophils Abs. # 0.1 K/uL Normal 0.0-0.1 [facility] Comment on above: Performed By: #### C BC #### [facility] [place] [address] [place] [address] Basophils/100 WBC (Bld) 0.6 % Normal 0.2-1.0 [facility] Comment on above: Performed By: #### C BC #### [facility] [place] [address] [facility] [place] [address] Basophils/100 WBC (Bld) BOOK STORE ASSOCIATE Normal [facility] Comment on above: Performed By: #### C BC #### [facility] [place] [address] [place] [address] Bosophillia # BOOK STORE ASSOCIATE Normal [facility] Comment on above: Performed By: #### C BC #### [facility] [place] [address] [place] [address] Eosinophils (Bld) [#/Vol] 0.4 10*3/uL High 0.0-0.2 [facility] Comment on above: Performed By: #### C BC #### [facility] [place] [address] [place] [address] Eosinophils (Bld) [#/Vol] BOOK STORE ASSOCIATE Normal [facility] Comment on above: Performed By: #### C BC #### [facility] [place] [address] [place] [address] Eosinophils/100 WBC (Bld) BOOK STORE ASSOCIATE Normal [facility] Comment on above: Performed By: #### C BC #### [facility] [place] [address] [place] [address] Eosinophils/100 WBC (Bld) 4.6 % High 0.9-2.9 [facility] Comment on above: Performed By: #### C BC #### [facility] [place] [address] [facility] [place] [address] Erythocytosis BOOK STORE ASSOCIATE Normal [facility] Comment on above: Performed By: #### C BC #### [facility] [place] [address] [place] [address] Erythrocyte distribution width (RBC) [Ratio] 13.4 % Normal 11.5-14.5 [facility] Comment on above: Performed By: #### C BC #### [facility] [place] [address] [place] [address] Hematocrit (Bld) [Volume fraction] 44.5 % Normal 36.7-50.6 [facility] Comment on above: Performed By: #### C BC #### [facility] [place] [address] [place] [address] Hemoglobin (Bld) [Mass/Vol] 15.1 g/dL Normal 12.4-17.3 [facility] [facility] Comment on above: Performed By: #### C BC #### [facility] [place] [address] [place] [address] Hypochromia BOOK STORE ASSOCIATE Normal [facility] Comment on above: Performed By: #### C BC #### [facility] [place] [address] [facility] [place] [address] Large Platelets BOOK STORE ASSOCIATE Normal [facility] Comment on above: Performed By: #### C BC #### [facility] [place] [address] [facility] [place] [address] Leukocytosis BOOK STORE ASSOCIATE Normal [facility] Comment on above: Performed By: #### C BC #### [facility] [place] [address] [place] [address] Leukopenia BOOK STORE ASSOCIATE Normal [facility] Comment on above: Performed By: #### C BC #### [facility] [place] [address] [place] [address] Lymphocytes (Bld) [#/Vol] BOOK STORE ASSOCIATE Normal [facility] Comment on above: Performed By: #### C BC #### [facility] [place] [address] [place] [address] Lymphocytes (Bld) [#/Vol] 2.3 10*3/uL Normal 1.3-2.9 [facility] Comment on above: Performed By: #### C BC #### [facility] [place] [address] [facility] [place] [address] Lymphocytes/100 WBC (Bld) BOOK STORE ASSOCIATE Normal [facility] Comment on above: Performed By: #### C BC #### [facility] [address] [facility] [place] [address] Lymphocytes/100 WBC (Bld) 28.8 % Normal 17.0-45.5 [facility] Comment on above: Performed By: #### C BC #### [facility] [place] [address] [place] [address] Lymphocytosis # BOOK STORE ASSOCIATE Normal [facility] Comment on above: Performed By: #### C BC #### [facility] [address] [place] [address] Lymphocytosis % BOOK STORE ASSOCIATE Normal [facility] Comment on above: Performed By: #### C BC #### [facility] [address] [place] [address] Macrocytosis BOOK STORE ASSOCIATE Normal [facility] Comment on above: Performed By: #### C BC #### [facility] [address] [place] [address] MCH (RBC) [Entitic mass] 29.4 pg Normal 27.0-31.0 [facility] Comment on above: Performed By: #### C BC #### [facility] [place] [address] [place] [address] MCHC (RBC) [Mass/Vol] 33.8 g/dL Normal 33.0-37.0 [facility] Comment on above: Performed By: #### C BC #### [facility] [place] [address] [place] [address] MCV (RBC) [Entitic vol] 87.0 fL Normal 80.0-94.0 [facility] Comment on above: Performed By: #### C BC #### [facility] [place] [address] [place] [address] Microcytosis BOOK STORE ASSOCIATE Normal [facility] Comment on above: Performed By: #### C BC #### [facility] [place] [address] [place] [address] Monocytes (Bld) [#/Vol] 0.7 10*3/uL Normal 0.3-0.8 [facility] Comment on above: Performed By: #### C BC #### [facility] [place] [address] [place] [address] Monocytes/100 WBC (Bld) 8.1 % Normal 5.5-11.7 [facility] Comment on above: Performed By: #### C BC #### [facility] [place] [address] [place] [address] Monocytosis % BOOK STORE ASSOCIATE Normal [facility] Comment on above: Performed By: #### C BC #### [facility] [place] [address] [place] [address] Neutropenia # BOOK STORE ASSOCIATE Normal [facility] Comment on above: Performed By: #### C BC #### [facility] [place] [address] [place] [address] Neutropenia % BOOK STORE ASSOCIATE Normal [facility] Comment on above: Performed By: #### C BC #### [facility] [place] [address] [place] [address] Neutrophils (Bld) [#/Vol] BOOK STORE ASSOCIATE Normal [facility] Comment on above: Performed By: #### C BC #### [facility] [place] [address] [place] [address] Neutrophils Abs. # 4.7 K/uL Normal 2.2-4.8 [facility] Comment on above: Performed By: #### C BC #### [facility] [place] [address] [place] [address] Neutrophils/100 WBC (Bld) 57.9 % Normal 43.0-65.0 [facility] Comment on above: Performed By: #### C BC #### [facility] [place] [address] [place] [address] Neutrophils/100 WBC (Bld) BOOK STORE ASSOCIATE Normal [facility] Comment on above: Performed By: #### C BC #### [facility] [place] [address] [place] [address] Nucleated RBC (Bld) [#/Vol] 0.0 10*3/uL Normal [facility] Comment on above: Performed By: #### C BC #### [facility] [place] [address] [place] [address] Nucleated RBC/100 WBC (Bld) [Ratio] 0.0 % Normal [facility] Comment on above: Performed By: #### C BC #### [facility] [place] [address] [facility] [place] [address] Pancytopenia BOOK STORE ASSOCIATE Normal [facility] Comment on above: Performed By: #### C BC #### [facility] [place] [address] [place] [address] Platelet mean volume (Bld) [Entitic vol] 9.5 fL Normal 7.4-10.4 [facility] Comment on above: Performed By: #### C BC #### [facility] [place] [address] [place] [address] Platelets (Bld) [#/Vol] 230 10*3/uL Normal 148-402 [facility] Comment on above: Performed By: #### C BC #### [facility] [place] [address] [place] [address] Poikilocytosis BOOK STORE ASSOCIATE Normal [facility] Comment on above: Performed By: #### C BC #### [facility] [place] [address] [place] [address] RBC (Bld) [#/Vol] 5.11 10*6/uL Normal 4.13-5.69 [facility] Comment on above: Performed By: #### C BC #### [facility] [place] [address] [facility] [place] [address] Small Platelets BOOK STORE ASSOCIATE Normal [facility] Comment on above: Performed By: #### C BC #### [facility] [place] [address] [place] [address] Thrombocytopenia BOOK STORE ASSOCIATE Normal [facility] Comment on above: Performed By: #### C BC #### [facility] [place] [address] [place] [address] Thrombocytopenia. BOOK STORE ASSOCIATE Normal [facility] Comment on above: Performed By: #### C BC #### [facility] [place] [address] [place] [address] Thrombocytosis BOOK STORE ASSOCIATE Normal [facility] Comment on above: Performed By: #### C BC #### [facility] [place] [address] [facility] [place] [address] WBC (Bld) [#/Vol] 8.0 10*3/uL Normal 3.6-10.8 [facility] Comment on above: Performed By: #### C BC #### [facility] [place] [address] [place] [address] CHEST APon 08-22-2019 CHEST AP EXAMINATION: ONE XRAY VIEW OF THE CHEST 08/22/2019 2:21 am COMPARISON: None. HISTORY: ORDERING SYSTEM PROVIDED HISTORY: cough FINDINGS: The lungs are adequately inflated. There is no focal consolidation, pleural effusion or pneumothorax. The heart and mediastinal contours are within normal limits. No acute bony findings are identified. IMPRESSION: No acute process. Normal [facility] CBCon 01-30-2019 Absolute nRBC <0.01 Normal <0.01 [facility] Comment on above: Performed By: #### S APCR #### [facility] [employer] [address] [place] [phone] Erythrocyte distribution width Ratio (RBC) 11.9 % Normal 11.5-15.0 [facility] Comment on above: Performed By: #### S APCR #### [place] [phone] Hematocrit Volume Fraction (Bld) 41.4 % Normal 39.0-51.0 [facility] Comment on above: Performed By: #### S APCR #### [place] [phone] Hemoglobin mass conc (Bld) 14.5 g/dL Normal 13.0-17.0 [facility] Comment on above: Performed By: #### S APCR #### [place] [address] MCH Entitic mass (RBC) 28.4 pG Normal 26.0-34.0 [facility] Comment on above: Performed By: #### S APCR #### [place] [phone] MCHC mass conc (RBC) 35.0 g/dL Normal 30.5-36.0 [facility] Comment on above: Performed By: #### S APCR #### [place] [phone] MCV Entitic volume (RBC) 81.2 fL Normal 80.0-100.0 [facility] Comment on above: Performed By: #### S APCR #### [address] [place], [place] [address] Platelet mean volume Entitic volume (Bld) 11.0 fL Normal 9.0-12.7 [facility] Comment on above: Performed By: #### S APCR #### [facility] [address] [place], [place] [address] Platelets #/vol (Bld) 315 10*3/uL Normal 150-400 [facility] Comment on above: Performed By: #### S APCR #### [place] [address] [place], [place] [address] RBC #/vol (Bld) 5.10 10*6/uL Normal 4.20-6.00 [facility] Comment on above: Performed By: #### S APCR #### [place] [address] [place], [place] [address] WBC #/vol (Bld) 11.97 10*3/uL High 3.70-11.00 [facility] Comment on above: Performed By: #### S APCR #### [place] [id number] [place] [id number] [facility]ward 01-30-2019 CNOV Office Visit (STFLE) PANCHO LOPEZ ([id number]) 1985 M Date Time Provider Department 01/30/19 1:45 PM BERT BARON ([facility]) STFLE During your visit today, we recorded the following information about you: Temperature Pulse Respiration Blood pressure 100 degrees 75/minute 16/minute 134/83 Weight Height 85.7 kg 1.778 m Bert Baron APRN.CNP 01/30/2019 2:25 PM Signed This note was created using NoteWriter. Subjective Pancho Lopez is a 33 year old male. CC: sore throat, congestion Associated symptoms: sinus drainage Onset:problem is new since 1- 2 days ago Course: getting worse Location: throat Pain Scale: 1/10 Treatment to date: thera flu and cough syrup helps Considerations/Risk Factors: Sick Contacts: yes, no known strep exposure Denies asthma Patient does not feel he has strep today The history is provided by the patient. Review of Systems Constitutional: Negative for chills and fever. HENT: Positive for congestion, postnasal drip and sore throat. Eyes: Negative. Respiratory: Positive for cough (coughed up some mucous this morning). Negative for wheezing. Cardiovascular: Negative for chest pain. Gastrointestinal: Negative for abdominal pain and vomiting. Musculoskeletal: Negative for myalgias. Skin: Negative for rash. Neurological: Negative for weakness and numbness. Objective BP 134/83 (BP Site: Right Arm, BP Position: Sitting, BP Cuff Size: Regular Adult) Pulse 75 Temp 37.8 ?C (100 ?F) Resp 16 Ht 177.8 cm (5' 10) Wt 85.7 kg (189 lb) SpO2 96% BMI 27.12 kg/m? Physical Exam Constitutional: He is oriented to person, place, and time. He appears well-developed. Non-toxic appearance. He does not appear ill. No distress. HENT: Head: Normocephalic. Right Ear: Tympanic membrane and ear canal normal. Left Ear: Tympanic membrane and ear canal normal. Nose: Nose normal. Mouth/Throat: Uvula is midline and mucous membranes are normal. Posterior oropharyngeal erythema (mild) present. No tonsillar abscesses. Eyes: Pupils are equal, round, and reactive to light. Conjunctivae are normal. Neck: Neck supple. Cardiovascular: Regular rhythm. Exam reveals no gallop and no friction rub. Pulmonary/Chest: Effort normal and breath sounds normal. Neurological: He is alert and oriented to person, place, and time. GCS eye subscore is 4. GCS verbal subscore is 5. GCS motor subscore is 6. Skin: Skin is warm and dry. He is not diaphoretic. Psychiatric: He has a normal mood and affect. Nursing note and vitals reviewed. Rapid strep test is neg Assessment and Plan 1. Pharyngitis, unspecified etiology - ICD9: 462, ICD10: J02.9 (primary diagnosis) - RAPID STREP TEST B/O: neg - otc throat spray, pt declined bmx gargle 2. URI, acute - ICD9: 465.9, ICD10: J06.9 - Discussed viral etiology and rationale for treatment. - Symptomatic treatment with prn analgesia - Supportive care with fluids and rest -Patient is non-toxic and appropriate for outpatient treatment and management at the time of evaluation. -Patient education discussed and handout provided. -Follow up with your doctor prn if symptoms persist or worsen. ER for severe symptoms as discussed. -Patient verbalizes understanding of the plan and is in agreement. -Patient discharged in stable condition after questions answered. KAN Yi APRN.CNP 01/30/2019 2:16 PM Addendum PLAN: - your rapid strep test was negative - increase fluids and rest - may take ibuprofen over the counter - go to ER immediately if you symptoms worsen such as severe pain, unable to swallow your saliva, or high fever - follow up with your doctor if symptoms persist - if you don't have a primary care doctor (pcp), it is recommended that you establish with one Pharyngitis (sore throat)/Upper Respiratory Infection (uri) -most uri's and sore throats are caused by viruses. Antibiotics are not effective against viruses -supportive care for your symptoms such as fluids, rest, warm salt water gargles, warm drinks such as tea with honey, and throat lozenges are recommended -saline nasal spray, breathing in warm moist air (shower), and over the counter pain relievers such as Tylenol or Advil for pain and fever can also help you to feel better -May take flonase sensimist over the counter for 7-10 days, or over the counter decongestant (not recommended if you have high blood pressure) When should I call the doctor or nurse?Most people who have a cough that lasts longer than their other cold or flu symptoms do not need to see a doctor. The cough can take up to 3 weeks to get better, sometimes even longer. But you should call your doctor or nurse if you have: ?A fever higher than 100.4?F (38?C) ?Chest pain when you cough, trouble breathing, or coughing up blood ?A barking cough that makes it hard to talk ?A cough and weight loss that you cannot explain ?Symptoms that are not getting better after 3 weeks Pharyngitis (throat infection) What care is needed at home? Ask your doctor what you need to do when you go home. Make sure you ask questions if you do not understand what the doctor says. This way you will know what you need to do. Rest your throat by not talking or singing too much. Gargle with a mixture of 1 teaspoon (5 grams) salt in 8 ounces (240 mL) of warm water 2 to 3 times a day. Suck on hard candy or cough drops. Use a cool mist humidifier to help you breathe easier. If you smoke, stop until you are told by your doctor to do so. Stay away from those who are smoking. Avoid drinking beer, wine, and mixed drinks (alcohol). What follow-up care is needed? Your doctor may ask you to make visits to the office to check on your progress. Be sure to keep these visits. What drugs may be needed? Take your drugs as ordered by your doctor. Do not skip doses or stop when you feel better. The doctor may order drugs to: Prevent or fight an infection Help with pain Lower fever Help nasal congestion and runny nose Soothe the throat Steroids (for very serious cases) Will physical activity be limited? You may need to rest at home for 1 to 2 days or until you are feeling well. What changes to diet are needed? If your throat feels too sore to eat solid foods you may drink juice, milk, milkshakes, or soups. Talk to your doctor about what diet is proper for your condition. What can be done to prevent this health problem? Wash your hands often. Be sure to wash after you blow your nose or take care of others with a sore throat. Do not share utensils and drinking glasses with someone who has a sore throat. Wash these objects with hot, soapy water. Do not share your foods or drinks with others while you are sick. You might infect them. Throw away used tissues right away and then wash your hands. Get a new toothbrush after signs are gone or you are done with your antibiotics. When do I need to call the doctor? Go to the ER or seek care right away if you have: Signs of a very bad reaction. These include wheezing; chest tightness; fever; itching; bad cough; blue skin color; seizures; or swelling of face, lips, tongue, or throat. Trouble breathing or swallowing You are unable to swallow your spit (drooling) Very bad headache, stiff neck, chest pain, feel like you are going to throw up Call your doctor if you have: Signs of infection. These include a fever of 100.4?F (38?C) or higher, chills, very bad sore throat, ear or sinus pain, cough, more sputum or change in color of sputum, mouth sores. Larger, painful lumps in your neck. Skin rash, cough, ear pain, or whitish to yellow blisters in the back of your throat. Coughing up or blowing yellow, green, or bloody mucus from your nose. Very bad pain in your throat that you cannot eat or drink anything. Health problem is not better or you are feeling worse. Referring Provider: SELF [200] Allergies As of Date: 01/30/2019 (No Known Allergies) Date Reviewed: 01/30/2019 Reviewed by: Bert ([facility]) [place] - Fully Assessed Reason for Visit: Sore Throat [200] Cmt: congestion, drainage,sore throat x 2 days, otc thera flu, cough syrup Primary Visit Diagnosis:Pharyngitis, unspecified etiology [J02.9] Other Visit Diagnosis:URI, acute [J06.9] Order(s):RAPID STREP TEST B/O [2203046] Order #: [id number] Problem List As Of Date: 01/30/2019 (None) Other instructions from your clinician: PLAN: - your rapid strep test was negative - increase fluids and rest - may take ibuprofen over the counter - go to ER immediately if you symptoms worsen such as severe pain, unable to swallow your saliva, or high fever - follow up with your doctor if symptoms persist - if you don't have a primary care doctor (pcp), it is recommended that you establish with one Pharyngitis (sore throat)/Upper Respiratory Infection (uri) -most uri's and sore throats are caused by viruses. Antibiotics are not effective against viruses -supportive care for your symptoms such as fluids, rest, warm salt water gargles, warm drinks such as tea with honey, and throat lozenges are recommended -saline nasal spray, breathing in warm moist air (shower), and over the counter pain relievers such as Tylenol or Advil for pain and fever can also help you to feel better -May take flonase sensimist over the counter for 7-10 days, or over the counter decongestant (not recommended if you have high blood pressure) When should I call the doctor or nurse?Most people who have a cough that lasts longer than their other cold or flu symptoms do not need to see a doctor. The cough can take up to 3 weeks to get better, sometimes even longer. But you should call your doctor or nurse if you have: ?A fever higher than 100.4?F (38?C) ?Chest pain when you cough, trouble breathing, or coughing up blood ?A barking cough that makes it hard to talk ?A cough and weight loss that you cannot explain ?Symptoms that are not getting better after 3 weeks Pharyngitis (throat infection) What care is needed at home? Ask your doctor what you need to do when you go home. Make sure you ask questions if you do not understand what the doctor says. This way you will know what you need to do. Rest your throat by not talking or singing too much. Gargle with a mixture of 1 teaspoon (5 grams) salt in 8 ounces (240 mL) of warm water 2 to 3 times a day. Suck on hard candy or cough drops. Use a cool mist humidifier to help you breathe easier. If you smoke, stop until you are told by your doctor to do so. Stay away from those who are smoking. Avoid drinking beer, wine, and mixed drinks (alcohol). What follow-up care is needed? Your doctor may ask you to make visits to the office to check on your progress. Be sure to keep these visits. What drugs may be needed? Take your drugs as ordered by your doctor. Do not skip doses or stop when you feel better. The doctor may order drugs to: Prevent or fight an infection Help with pain Lower fever Help nasal congestion and runny nose Soothe the throat Steroids (for very serious cases) Will physical activity be limited? You may need to rest at home for 1 to 2 days or until you are feeling well. What changes to diet are needed? If your throat feels too sore to eat solid foods you may drink juice, milk, milkshakes, or soups. Talk to your doctor about what diet is proper for your condition. What can be done to prevent this health problem? Wash your hands often. Be sure to wash after you blow your nose or take care of others with a sore throat. Do not share utensils and drinking glasses with someone who has a sore throat. Wash these objects with hot, soapy water. Do not share your foods or drinks with others while you are sick. You might infect them. Throw away used tissues right away and then wash your hands. Get a new toothbrush after signs are gone or you are done with your antibiotics. When do I need to call the doctor? Go to the ER or seek care right away if you have: Signs of a very bad reaction. These include wheezing; chest tightness; fever; itching; bad cough; blue skin color; seizures; or swelling of face, lips, tongue, or throat. Trouble breathing or swallowing You are unable to swallow your spit (drooling) Very bad headache, stiff neck, chest pain, feel like you are going to throw up Call your doctor if you have: Signs of infection. These include a fever of 100.4?F (38?C) or higher, chills, very bad sore throat, ear or sinus pain, cough, more sputum or change in color of sputum, mouth sores. Larger, painful lumps in your neck. Skin rash, cough, ear pain, or whitish to yellow blisters in the back of your throat. Coughing up or blowing yellow, green, or bloody mucus from your nose. Very bad pain in your throat that you cannot eat or drink anything. Health problem is not better or you are feeling worse. Encounter Status:Closed by BERT BARON on 01/30/19 [facility] CONSULT PROGon 01-30-2019 Protein mass conc HNO ID: [id number] Author: Claude Barone MD Service: Otolaryngology Author Type: Resident Type: Consult Progress Note Filed: 01/30/2019 9:59 AM Note Text: [facility] - [facility]ECK SURGERY CONSULT PROGRESS NOTE PAGE [id number] AFTER 1700 AND ON WEEKENDS Patient Name: Pancho Lopez Age: [age] year old Sex: male Date: January 30, 2019 Admission Date: 01/23/2019 Hospital Day: 7 ASSESSMENT/PLAN: Pancho Lopez is a 33 year old male with PMHx significant for polysubstance abuse, tobacco abuse, EtOH abuse, HTN, obesity who presented to the hospital on 01/23/2019 transferred from [place] for acute epiglottitis. Patient underwent tracheostomy 01/22/19 for airway protection. ENT was consulted for evaluation. Initial flexible laryngoscopy demonstrated markedly edematous and erythematous epiglottis with purulent exudate, unable to visualize glottis. - Flexible laryngoscopy today demonstrating significant decreased erythema and fullness of upper airway, which is observed to be widely patent - Patient decanulated this AM breathing easily after removal. Occlusive dressing placed see decannulation discharge instructions bolded below. - Remainder of care per primary team - Please page ENT with any questions or concerns Trachesotomy closure care: Keep your trach dressing dry at all times. Change the dressing at least daily or more often as needed. Use an occlusive tape such as nylon or a Tegaderm to make an airtight seal. When speaking or coughing, apply gentle pressure over the trach site. Avoid heavy coughing. These measures will allow the wound to close faster. SUBJECTIVE: Breathing back to baseline with trach capped. OBJECTIVE: Physical Examination: 01/30/19 0400 01/30/19 0500 01/30/19 0600 01/30/19 0800 BP: 165/90 168/79 152/81 Pulse: 74 87 87 Resp: 18 18 30 Temp: 36.8 ?C (98.3 ?F) 36.6 ?C (97.9 ?F) TempSrc: Oral SpO2: 98% 95% (!) 87% Weight: (!) 163.4 kg (360 lb 3.7 oz) Height: General: NAD, no noisy breathing or increased work of breathing with cap on. Airway: 6.[address], soft collar. On Trach collar Neck: soft, symmetric. No fluctuance or crepitus. No tenderness on palpation bilaterally. Procedure: Flexible laryngoscopy After spraying the right nose with 2% lidocaine/0.5% neosynephrine, the flexible scope was placed in a transnasal fashion through the right nare. The nasal passageways were normal with no signs of polyps or pus. There was no inferior turbinate hypertrophy. No masses were visualized in the nasopharynx, oropharynx, hypopharynx including the pyriform sinuses. The base of tongue showed no gross lesions. Moderate lingual tonsil hypertrophy. The epiglottis and arytenoids are minimally full and slight residual erythema. The upper airway is widely patent. The glottis is fully and easily visualized with bilateral TVC motion intact. Procedure performed by Claude Barone MD. LABS: Blood: Recent Labs 01/29/19225301/29/19 0049 01/27/19 2326 WBC 11.97* 11.16* 10.29 HB 14.5 13.5 13.6 HCT 41.4 39.1 38.2* PLT 315 281 255 MCV 81.2 82.8 80.3 MCH 28.4 28.6 28.6 MCHC 35.0 34.5 35.6 RDWCV 11.9 11.7 11.5 MPV 11.0 10.9 11.2 Recent Labs 01/29/19225301/29/199 01/27/19 2326 NA 139 137 136 K 4.1 4.0 4.0 CHLOR 105 100 99 CO2 19* 23 22 BUN 35* 30* 26* CREAT 1.17 1.18 1.05 GLUC 88 106* 112* CA 9.2 9.1 9.3 MG 2.2 2.1 2.0 P 3.0 3.4 2.7 No results for input(s): PTSEC, INR, APTT in the last 72 hours. Claude Barone MD Otolaryngology PGY-2 Pager [phone] Service Pager [phone] - please page after 5pm and on weekends Normal [facility] ECG COMPLETEon 01-30-2019 ECG COMPLETE NAME : RAJNI LOPEZ PID : [id number] : 1985 Gender : Male Race : ORD : [id number] Procedure Date : Jan 30 2019 09:08:18 Edit Date : Feb 04 2019 15:13:06 Diagnosis:NORMAL SINUS RHYTHM MINIMAL VOLTAGE CRITERIA FOR LVH, MAY BE NORMAL VARIANT INFERIOR MYOCARDIAL INFARCTION , AGE UNDETERMINED ABNORMAL ECG Confirmed by MEL SOLIZ M.D. ([id number]) on 02/04/2019 3:11:41 PM Ventricular Rate : 82 BPM Atrial Rate : 82 BPM P-R Interval : 158 ms QRS Duration : 110 ms Q-T Interval : 382 ms QTC Calculation(Bezet) : 446 ms P [place] : 54 degrees R [place] : 20 degrees T [place] : -7 degrees Test Reason : Medication Location : 35 : 2 [id number] Overread By : MEL SOLIZ M.D. Edited By : MEL SOLIZ M.D. Referred By : , Acquired by : GHULAM LANGE Normal [facility] Magnesiumon 01-30-2019 Magnesium mass conc 2.2 mg/dL Normal 1.7-2.3 [facility] Comment on above: Performed By: #### S APCR #### [facility] [address], [place] [address] NURSING PROGon 01-30-2019 Protein mass conc HNO ID: [id number] Author: Dilcia GivensRn) COLETTE Ricci Service: Nursing Author Type: Registered Nurse Type: Nursing Progress Note Filed: 01/30/2019 11:04 AM Note Text: Upon AM rounds, pt stated to [facility] Staff Dr. Cordon and Resident Harish Araujo that he would like to leave against medical advice. Pt. Stating that I have stuff to do and that I have a lot of support at home, I don't want to continue receiving care. He stated that he is related to people who work at [employer] and live a half a mile from the hospital. Pt. Educated thoroughly by the LIPs and this nurse of risks of leaving AMA. Pt. Still refusing care, still wants to leave. QHPs Dr. Cordon, Dr. Denis, and Resident Harish Araujo deemed pt. Capable of making own decisions. Nurse manager leasing Man Miller notified, charge nurse Margaret Huerta notified. This nurse and Dr. Cordon witnessed pt signature of AMA form. PIVs and telemetry removed per LIP ok. Pt. States mother, Eleanor Lopez, and father, Ben Lopez, will be taking patient home with educational resources and discharge instructions from resident Harish Araujo. Dilcia Ricci RN Normal [facility] PROGRESSon 01-30-2019 Protein mass conc HNO ID: [id number] Author: Bert Baron Service: ? Author Type: Nurse Practitioner Type: Progress Notes Filed: 01/30/2019 2:25 PM Note Text: This note was created using Robotronicariter. Subjective Pancho Lopez is a 33 year old male. CC: sore throat, congestion Associated symptoms: sinus drainage Onset:problem is new since 1- 2 days ago Course: getting worse Location: throat Pain Scale: 1/10 Treatment to date: thera flu and cough syrup helps Considerations/Risk Factors: Sick Contacts: yes, no known strep exposure Denies asthma Patient does not feel he has strep today The history is provided by the patient. Review of Systems Constitutional: Negative for chills and fever. HENT: Positive for congestion, postnasal drip and sore throat. Eyes: Negative. Respiratory: Positive for cough (coughed up some mucous this morning). Negative for wheezing. Cardiovascular: Negative for chest pain. Gastrointestinal: Negative for abdominal pain and vomiting. Musculoskeletal: Negative for myalgias. Skin: Negative for rash. Neurological: Negative for weakness and numbness. Objective BP 134/83 (BP Site: Right Arm, BP Position: Sitting, BP Cuff Size: Regular Adult) Pulse 75 Temp 37.8 ?C (100 ?F) Resp 16 Ht 177.8 cm (5' 10) Wt 85.7 kg (189 lb) SpO2 96% BMI 27.12 kg/m? Physical Exam Constitutional: He is oriented to person, place, and time. He appears well-developed. Non-toxic appearance. He does not appear ill. No distress. HENT: Head: Normocephalic. Right Ear: Tympanic membrane and ear canal normal. Left Ear: Tympanic membrane and ear canal normal. Nose: Nose normal. Mouth/Throat: Uvula is midline and mucous membranes are normal. Posterior oropharyngeal erythema (mild) present. No tonsillar abscesses. Eyes: Pupils are equal, round, and reactive to light. Conjunctivae are normal. Neck: Neck supple. Cardiovascular: Regular rhythm. Exam reveals no gallop and no friction rub. Pulmonary/Chest: Effort normal and breath sounds normal. Neurological: He is alert and oriented to person, place, and time. GCS eye subscore is 4. GCS verbal subscore is 5. GCS motor subscore is 6. Skin: Skin is warm and dry. He is not diaphoretic. Psychiatric: He has a normal mood and affect. Nursing note and vitals reviewed. Rapid strep test is neg Assessment and Plan 1. Pharyngitis, unspecified etiology - ICD9: 462, ICD10: J02.9 (primary diagnosis) - RAPID STREP TEST B/O: neg - otc throat spray, pt declined bmx gargle 2. URI, acute - ICD9: 465.9, ICD10: J06.9 - Discussed viral etiology and rationale for treatment. - Symptomatic treatment with prn analgesia - Supportive care with fluids and rest -Patient is non-toxic and appropriate for outpatient treatment and management at the time of evaluation. -Patient education discussed and handout provided. -Follow up with your doctor prn if symptoms persist or worsen. ER for severe symptoms as discussed. -Patient verbalizes understanding of the plan and is in agreement. -Patient discharged in stable condition after questions answered. Bert Baron APRN.[employer] Normal [facility] Protein mass conc HNO ID: [id number] Author: Jonny Cordon Service: Critical Care Author Type: Physician Type: Progress Notes Filed: 01/30/2019 2:53 PM Note Text: [facility] STAFF PHYSICIAN NOTE OF PERSONAL INVOLVEMENT IN CARE I have reviewed the progress note obtained and documented by the resident and I personally participated in the casiano components. I have discussed the case and management of the patient's care. The following comments revise or confirm relevant casiano components of the note. IMPRESSION: 33-year-old male Polysubstance abuse Hypertension Obesity MICU admission acute hypoxic respiratory failure, acute epiglottitis status post tracheostomy 01/22/19 for airway protection PLAN: Decannulated 01/30 Supplemental oxygen oxygen as needed Coreg, hydralazine, losartan Antibiotics Zosyn. Patient/Family Updated This patient has a high probability of sudden, clinically significant deterioration, which requires the highest level of physician preparedness to intervene urgently. I managed/supervised life or organ supporting interventions that required frequent physician assessment. I devoted my full attention to the direct care of this patient for the amount of time indicated below. Time I spent with family or surrogate(s) is included only if the patient was incapable of providing the necessary information or participating in medical decision making. Time devoted to teaching and to any procedures I billed separately is not included. Critical Care Documentation: The patient has the following organ/system impairment(s): Respiratory failure (Acute) Time spent providing critical care services: 35 minutes. SIGNATURE: Jonny Cordon MD [facility] PAGER:[phone] DATE of SERVICE: 01/30/2019 TIME of SERVICE: 8:07 AM Addendum 1030 a.m. Patient verbalizes his wish to leave the hospital AGAINST MEDICAL ADVICE. He is capable of making his own decisions. He verbalizes understanding of his diagnosis that caused his hospital admission. He understands the potential couple complications of leaving the hospital AGAINST MEDICAL ADVICE including uncontrolled hypertension, worsening of his epiglottitis, respiratory failure and . He says that he has family members were capable of taking care of him and lives close to the hospital. He also understands potential financial complications of leaving the hospital including not being covered by his insurance. We'll give prescription for antihypertensives and antibiotics. He will leave the hospital AGAINST MEDICAL ADVICE. Jonny Cordon MD Normal [facility] Renal Function Panelon 01-30 Albumin mass conc 3.7 g/dL Low 3.9-4.9 [facility] Comment on above: Performed By: #### S APCR #### [facility] [address] [place] [address] Anion gap molar conc 15 mmol/L Normal 9-18 [facility] Comment on above: Performed By: #### S APCR #### [facility] [address] [place] [address] Calcium mass conc 9.2 mg/dL Normal 8.5-10.2 [facility] Comment on above: Performed By: #### S APCR #### [facility] [address] [place] [address] Chloride molar conc 105 mmol/L Normal 97-105 [facility] Comment on above: Performed By: #### S APCR #### [facility] [address] [place] [address] CO2 molar conc 19 mmol/L Low 22-30 [facility] Comment on above: Performed By: #### S APCR #### [facility] [address] [place], [place] [id number] Creatinine mass conc 1.17 mg/dL Normal 0.73-1.22 [facility] Comment on above: Performed By: #### S APCR #### [facility] [address] [place] [address] eGFR- Amer. >60 Normal [facility] Comment on above: Performed By: #### S APCR #### [facility] [address] [place] [address] GFR/1.73 sq M predicted among non-blacks MDRD vol rate/area (S/P/Bld) mL/min/{1.73_m2} Normal [facility] Comment on above: Result Comment: eGFR (Estimated GFR) Units of measure: mL/min/1.73 meters squared eGFR is derived from the reexpressed MDRD Study equation using the following parameters: serum creatinine, age, gender and race. The creatinine assay has been calibrated to be traceable to IDMS. An eGFR <60 mL/min/1.73m2 for >3 months is consistent with chronic kidney disease. Refer to KDOQI guidelines for clinical interpretation. In patients with unstable renal function, e.g. those with acute kidney injury, the eGFR may not accurately reflect actual GFR. Performed By: #### S APCR #### [facility] [address] [place] [address] Glucose mass conc 88 mg/dL Normal 74-99 [facility] Comment on above: Result Comment: The [place] Diabetes Association (ADA) provides guidance for cutoff values for fasting glucose and random glucose. The ADA defines fasting as no caloric intake for at least 8 hours. Fasting plasma glucose results between 100 to 125 mg/dL indicate increased risk for diabetes (prediabetes). Fasting plasma glucose results greater than or equal to 126 mg/dL meet the criteria for diagnosis of diabetes. In the absence of unequivocal hyperglycemia, results should be confirmed by repeat testing. In a patient with classic symptoms of hyperglycemia or hyperglycemic crisis, random plasma glucose results greater than or equal to 200 mg/dL meet the criteria for diagnosis of diabetes. Reference: Standards of Medical Care in Diabetes 2016, [place] [employer] Association. Diabetes Care. 2016.39(Suppl 1). Performed By: #### S APCR #### [facility] [address], [place] [id number] Phosphate mass conc 3.0 mg/dL Normal 2.7-4.8 [facility] Comment on above: Performed By: #### S APCR #### [facility] [address], [place] [address] Potassium molar conc 4.1 mmol/L Normal 3.7-5.1 [facility] Comment on above: Performed By: #### S APCR #### [facility] [address], [place] [address] Sodium molar conc 139 mmol/L Normal 136-144 [facility] Comment on above: Performed By: #### S APCR #### [facility] [address], [place] [address] Urea nitrogen mass conc 35 mg/dL High 9-24 [facility] Comment on above: Performed By: #### S APCR #### [facility] [address], [place] [address] CASE MANAGEMon 01-29-2019 CASE MANAGEM HNO ID: [id number] Author: Aníbal Stewart) COLETTE Flores Service: Care Management Author Type: Registered Nurse Type: Care Mgt Progress Note Filed: 01/29/2019 12:10 PM Note Text: CARE MANAGEMENT PROGRESS NOTE SERVICE DATE: 01/29/2019 SERVICE TIME: 12:05 PM LOS: 6 days Needs Prior to Discharge: To Be Determined Trach exchanged and cuff down Currently on RA Continuing abx's for 7-10 days PPN Hypertensive urgency Hx: polysubstance use? PT/OT continue to work with patient and will follow up once final recommendations received. SIGNATURE: Aníbal Flores RN PATIENT NAME: Pancho Lopez DATE: January 29, 2019 TIME: 12:05 PM PAGER/CONTACT #: [phone] Normal [facility] CBCon 01-29-2019 Absolute nRBC <0.01 Normal <0.01 [facility] Comment on above: Performed By: #### C BC, MG1, RFP, TSH ####[facility] [place] [phone] Erythrocyte distribution width Ratio (RBC) 11.7 % Normal 11.5-15.0 [facility] Comment on above: Performed By: #### C BC, MG1, RFP, TSH ####[place] [id number] [phone] Hematocrit Volume Fraction (Bld) 39.1 % Normal 39.0-51.0 [facility] Comment on above: Performed By: #### C BC, MG1, RFP, TSH ####[place] [address] [phone] Hemoglobin mass conc (Bld) 13.5 g/dL Normal 13.0-17.0 [facility] Comment on above: Performed By: #### C BC, MG1, RFP, TSH ####[place] [address] [place] [phone] MCH Entitic mass (RBC) 28.6 pG Normal 26.0-34.0 [facility] Comment on above: Performed By: #### C BC, MG1, RFP, TSH ####[place] [address] [phone] MCHC mass conc (RBC) 34.5 g/dL Normal 30.5-36.0 [facility] Comment on above: Performed By: #### C BC, MG1, RFP, TSH ####[place] [address] [phone] MCV Entitic volume (RBC) 82.8 fL Normal 80.0-100.0 [facility] Comment on above: Performed By: #### C BC, MG1, RFP, TSH ####[facility], [place] [phone] Platelet mean volume Entitic volume (Bld) 10.9 fL Normal 9.0-12.7 [facility] Comment on above: Performed By: #### C BC, MG1, RFP, TSH ####[place] [address] [place], [place] [phone] Platelets #/vol (Bld) 281 10*3/uL Normal 150-400 [facility] Comment on above: Performed By: #### C BC, MG1, RFP, TSH ####[address] [place] [phone] RBC #/vol (Bld) 4.72 10*6/uL Normal 4.20-6.00 [facility] Comment on above: Performed By: #### C BC, MG1, RFP, TSH ####[address] [place] [phone] WBC #/vol (Bld) 11.16 10*3/uL High 3.70-11.00 [facility] Comment on above: Performed By: #### C BC, MG1, RFP, TSH ####[address] [phone] Free T3on 01-29-2019 T3 free mass conc 1.8 pg/mL Low 2.3-4.1 [facility] Comment on above: Performed By: #### S APCR #### [facility] [address], [place] [address] Free T4on 01-29-2019 T4 free mass conc 1.2 ng/dL Normal 0.9-1.7 [facility] Comment on above: Performed By: #### S APCR #### [facility] [address], [place] [address] Magnesiumon 01-29-2019 Magnesium mass conc 2.1 mg/dL Normal 1.7-2.3 [facility] Comment on above: Performed By: #### C BC, MG1, RFP, TSH ####[facility] [address] [place], [place] [phone] NUTRITIONon 01-29-2019 NUTRITION HNO ID: [id number] Author: Madonna Ortega Service: NST-Nutrition Support Team Author Type: Registered Dietitian Type: Nutrition Filed: 01/29/2019 3:51 PM Note Text: NUTRITION SUPPORT TEAM PROGRESS NOTE SERVICE DATE: 01/29/2019 SERVICE TIME: 11:00AM RECOMMENDED DIAGNOSIS: MILD PROTEIN-CALORIE MALNUTRITION per Registered Dietitian on 01/25 NUTRITION CARE PLAN Intervention: Parenteral nutrition - recommend adding lipids, usin milliliters, 85 milliliters/hour 105 grams 10% amino acids 440 dextrose calories 410 fat calories (PPN will provide 1270 calories, 105 grams protein) Goal: Parenteral nutrition intake provides >90% estimated nutritional requirements Discharge Nutrition Recommendations: To be determined Per HPI: 33 year old male with acute epiglottitis, S/P trach 01/22, acute respiratory failure,?obstructive lung disease,?SHARON ? Relevant medical/surgical history:?polysubstance abuse (methamphetamines, opioids - on methadone, alcohol) ???HTN ???obesity Interval History: Stable electrolytes Will add lipids to prevent essential fatty acid deficiency. Nursing prefers to have lipids added to PPN rather using another PIV for it (other PIVs are being used for blood draws, antibiotics, etc.). Trach is plugged today No diet orders placed this encounter PPN: providing 860 calories, 105 grams protein Lines and Drains: Peripheral 01/25/19 0337 Short Right Arm 18 Gauge (Active) Peripheral 01/25/19 0338 Short Right Hand 22 Gauge (Active) Peripheral 01/28/19 0111 Left Hand 22 Gauge (Active) Height: 198.1 cm (6' 6) Admission Weight: (!) 164.8 kg (363 lb 5.1 oz) Current Weight: (!) 162.2 kg (357 lb 9.4 oz) Body mass index is 41.07 kg/m?. class 3 obesity Weight history: unknown Weight changes during hospitalization: weight loss due to fluid losses ? [place] Body Weight:?97.5kg Dosing Weight:?163.8?kg Resting Metabolic Rate: 2722 Estimated kilocalorie needs:?1802 - 2293?kilocalories determined by 11 - 14?kcal/kg Estimated protein needs:?185 - 244?grams determined by 2.0 - 2.5 g/kg?[place]?weight ? ? Recent Labs 01/29/19 0049 GLUC 106* BUN 30* CREAT 1.18 NA 137 K 4.0 CHLOR 100 CO2 23 ALB 3.7* P 3.4 HB 13.5 HCT 39.1 WBC 11.16* MG 2.1 MNT Billing Type: Re-assess/15 min 2 units SIGNATURE: iL Ortega, MS RD LD PATIENT NAME: Pancho Lopez DATE: January 29, 2019 TIME: 12:39 PM PAGER: [phone] Add: Per Primary Service, patient passed swallow evaluation today so oral diet will be initiated. Primary Service wants to discontinue PPN. Pili Ortega, , RD, LD Pager #[phone] Normal [facility] PROGRESSon 01-29-2019 Protein mass conc HNO ID: [id number] Author: Stephanie Lofton Service: Critical Care Author Type: Resident Type: Progress Notes Filed: 01/29/2019 7:51 PM Note Text: [facility] PROGRESS NOTE (Template ID [id number]) Pancho Lopez [id number] Admit Date: January 29, 2019 PRIMARY SERVICE: Medical Intensive care unit PLAN FOR TODAY - Trach capped - Passed swallow test - Continue antibiotics for total 7-10 days (depending on ENT) - Coreg 25 mg BID - Hydralazine 75 mg Q6h and PRN - Losartan 50 mg QD - Miralax - Haldol PRN agitation - Continue PPN - Transfer once BPs controlled Hypertension improving, unclear if secondary source. Cr normalizing on ACEI, unlikely intrinsic kidney disease or renovascular. Patient denies having been on methadone or taking opioids, admits to methamphetamine >2 weeks ago. TSH slightly low, doubt this is the cause. INTERVAL EVENTS / PERTINENT ROS: No acute events overnight. Talking with patient this morning, says he has had high BP in the past but has not been on medications for two years because he did not have insurance. Does get intermittent headaches. PHYSICAL EXAM: BP 130/62 Pulse 73 Temp 36.9 ?C (98.4 ?F) Resp 21 Ht 198.1 cm (6' 6) Wt (!) 162.2 kg (357 lb 9.4 oz) SpO2 96% BMI 41.32 kg/m? Body mass index is 41.32 kg/m?. Intake/Output Summary (Last 24 hours) at 01/29/20191943 Last data filed at 01/29/2019 1800 Gross per 24 hour Intake 1153 ml Output 1900 ml Net -747 ml GEN: no acute distress, alert SKIN: no rashes or lesions HEENT: non-icteric, EOM intact CARDIAC: RRR without murmur or gallop LUNG: CTAB, trach capped ABDOMEN: soft, nontender, BS+ EXTREMITIES: no edema or discoloration NEURO: alert, answering questions, no focal deficits noted ? ASSESSMENT AND PLAN: Pancho Lopez is a 33 y.o. M w/PMH of multiple substance abuse who presents with concern for epiglottitis. ? Neurological: - Intubated and sedated 2/2 agitation at the OSH - Outside notes mention belligerence etc. when not heavily sedated, in addition to the patient being asked to be knocked out - Hx notable for polysubstance abuse including methamphetamines in the previous week - ongoing agitation PLAN: - Monitor for signs of agitation - Slowly wean sedation; restraints as needed to keep patient safe - Avoid opioids, sedatives, benzos as able - baseline EKG - Haldol scheduled and PRN ? Cardiovascular: - Notably hypertensive at OSH. Was controlled with hydralazine PLAN: - Enalprilat and labetalol scheduled - Labetalol PRN ? Respiratory: - Intubated and sedated on the vent 2/2 upper airway obstruction secondary to epiglottitis PLAN: - decrease sedation - continue mechanical ventilation on pressure support - continue vanco and zosyn, de-escalate as able - appreciate ENT assistance ? Infectious Disease: - Labs at OSH notable for WBC to 32.9, granted, this was after administration of steroids. - Imaging concerning for epiglottitis - Notes mention initial treatment with zosyn, followed by vancomycin and ceftriaxone. Last notes prior to transfer show administration of unasyn. Unclear the duration of these medications or the accuracy of these notes. Improvement of WBC to 15 at OSH. - Epiglottis edematous and purulent with slightly less erythema on scope 01/26. PLAN: - follow blood cultures x2 - Dcd vanc - continue zosyn, de-escalate as able - No need for steroids due to trach and complicating WBC trend - appreciate ENT assistance - Follow CBC for WBC count ? Endocrine - no acute concerns - blood sugars well controlled ? Gastrointestinal/Nutrition: - unlikely PO intake - consult for PPN - GI PPx Dcd ? Renal: - Outside labs notable for SHARON. No baseline CKD. Unclear etiology but likely relates to possible severe sepsis. - SHARON improving - FeNa 2% and 2-5 RBCs on UA without casts, do not suspect PSGN at this point - Possibility of chronic CKD given elevated BPs going untreated for years (had previously tried HCTZ when he had insurance) PLAN: - Continue to follow RFP - Renally dose medications - No dialysis needs ? Prophylaxis: DVT PPX: Heparin 5000 u GI PPX: Protonix 40 mg qd ? Plan will be discussed with MICU Staff. ? ? PATIENT CHECKLIST ? Are restraints necessary: No ? Deep vein thrombosis prophylaxis administered? Yes ? Stress ulcer prophylaxis? No ? Nasogastric tube? No ? Agrawal catheter necessary? No ? Is central line essential? No ? Plan discussed with assigned RN? Yes ? Family updated within last 24 hours? Yes Stephanie Lofton, DO PGY-2 Internal Medicine [id number] January 29, 2019 Normal [facility] Protein mass conc HNO ID: [id number] Author: Riley Leach Service: Pulmonary Disease Author Type: Physician Type: Progress Notes Filed: 01/29/2019 7:10 PM Note Text: [facility] STAFF PHYSICIAN NOTE OF PERSONAL INVOLVEMENT IN CARE I have reviewed the clinical information obtained and documented by the resident's note and I personally participated in the casiano components. I have discussed the case and management of the patient's care. The following comments revise or confirm relevant casiano components of the note. Pancho Lopez is a 33 year old male with PMH?polysubstance use?who presented to the ICU with epiglottitis.? ? Active Problems:? - Epiglottitis necessitating tracheostomy. - Slowly improving. - Obstructive lung disease- on vent, there was prolonged expiratory phase. ?Improved w/ albuterol. ?No physical obstruction noted. - polysubstance use. ? - SHARON - improving.? - Hypertensive urgency. ? ? Plan:? -?Haldol prn for agitation ? - Morphine prn for pain. - Continue zosyn for epiglottitis.??? - COntinue?on trach collar as tolerated.? Cuffless fenestrated #[address] - PPN for nutrition - Hydralazine, enaliprilat and labetalol for htn - UTOX to r/o substance use as cause for htn. SIGNATURE:Riley Leach MD [facility] P[facility]ER: [phone] DATE of SERVICE: January 29, 2019 TIME of SERVICE: 7:09 PM Normal [facility] Renal Function Panelon 01-29 Albumin mass conc 3.7 g/dL Low 3.9-4.9 [facility] Comment on above: Performed By: #### C BC, MG1, RFP, TSH ####[facility] [address] [place] [phone] Anion gap molar conc 14 mmol/L Normal 9-18 [facility] Comment on above: Performed By: #### C BC, MG1, RFP, TSH ####[facility] [address] [place] [phone] Calcium mass conc 9.1 mg/dL Normal 8.5-10.2 [facility] Comment on above: Performed By: #### C BC, MG1, RFP, TSH ####[facility] [address] [place] [phone] Chloride molar conc 100 mmol/L Normal 97-105 [facility] Comment on above: Performed By: #### C BC, MG1, RFP, TSH ####[facility] [address] [place] [phone] CO2 molar conc 23 mmol/L Normal 22-30 [facility] Comment on above: Performed By: #### C BC, MG1, RFP, TSH ####[facility] [address] [place] [phone] Creatinine mass conc 1.18 mg/dL Normal 0.73-1.22 [facility] Comment on above: Performed By: #### C BC, MG1, RFP, TSH ####[facility] [place], [place] [phone] eGFR- Amer. >60 Normal [facility] Comment on above: Performed By: #### C BC, MG1, RFP, TSH ####[facility] [place], [place] [phone] GFR/1.73 sq M predicted among non-blacks MDRD vol rate/area (S/P/Bld) mL/min/{1.73_m2} Normal [facility] Comment on above: Result Comment: eGFR (Estimated GFR) Units of measure: mL/min/1.73 meters squared eGFR is derived from the reexpressed MDRD Study equation using the following parameters: serum creatinine, age, gender and race. The creatinine assay has been calibrated to be traceable to IDMS. An eGFR <60 mL/min/1.73m2 for >3 months is consistent with chronic kidney disease. Refer to KDOQI guidelines for clinical interpretation. In patients with unstable renal function, e.g. those with acute kidney injury, the eGFR may not accurately reflect actual GFR. Performed By: #### C BC, MG1, RFP, TSH ####[facility] [address] [place], [place] [phone] Glucose mass conc 106 mg/dL High 74-99 [facility] Comment on above: Result Comment: The [place] Diabetes Association (ADA) provides guidance for cutoff values for fasting glucose and random glucose. The ADA defines fasting as no caloric intake for at least 8 hours. Fasting plasma glucose results between 100 to 125 mg/dL indicate increased risk for diabetes (prediabetes). Fasting plasma glucose results greater than or equal to 126 mg/dL meet the criteria for diagnosis of diabetes. In the absence of unequivocal hyperglycemia, results should be confirmed by repeat testing. In a patient with classic symptoms of hyperglycemia or hyperglycemic crisis, random plasma glucose results greater than or equal to 200 mg/dL meet the criteria for diagnosis of diabetes. Reference: Standards of Medical Care in Diabetes 2016, [place] [employer] Association. Diabetes Care. 2016.39(Suppl 1). Performed By: #### C BC, MG1, RFP, TSH ####[facility] [address], [place] [phone] Phosphate mass conc 3.4 mg/dL Normal 2.7-4.8 [facility] Comment on above: Performed By: #### C BC, MG1, RFP, TSH ####[facility] [place] [phone] Potassium molar conc 4.0 mmol/L Normal 3.7-5.1 [facility] Comment on above: Performed By: #### C BC, MG1, RFP, TSH ####[place] [address], [place] [phone] Sodium molar conc 137 mmol/L Normal 136-144 [facility] Comment on above: Performed By: #### C BC, MG1, RFP, TSH ####[facility], [place] [phone] Urea nitrogen mass conc 30 mg/dL High 9-24 [facility] Comment on above: Performed By: #### C BC, MG1, RFP, TSH ####[facility], [place] [phone] TSHon 01-29-2019 Thyrotropin Qn 0.344 uU/mL Low 0.400-5.500 [facility] Comment on above: Performed By: #### C BC, MG1, RFP, TSH ####[facility] [address], [place] [phone] CBCon 01-28-2019 Absolute nRBC <0.01 Normal <0.01 [facility] Comment on above: Performed By: #### M G1, RFP, CBC ####[facility], [place] [phone] Erythrocyte distribution width Ratio (RBC) 11.5 % Normal 11.5-15.0 [facility] Comment on above: Performed By: #### M G1, RFP, CBC ####[place] [address] [place] [phone] Hematocrit Volume Fraction (Bld) 38.2 % Low 39.0-51.0 [facility] Comment on above: Performed By: #### M G1, RFP, CBC ####[place] [address] [place] [phone] Hemoglobin mass conc (Bld) 13.6 g/dL Normal 13.0-17.0 [facility] Comment on above: Performed By: #### M G1, RFP, CBC ####[place] [address] [place] [phone] MCH Entitic mass (RBC) 28.6 pG Normal 26.0-34.0 [facility] Comment on above: Performed By: #### M G1, RFP, CBC ####[place] [address] [place] [phone] MCHC mass conc (RBC) 35.6 g/dL Normal 30.5-36.0 [facility] Comment on above: Performed By: #### M G1, RFP, CBC ####[place] [address] [place] [phone] MCV Entitic volume (RBC) 80.3 fL Normal 80.0-100.0 [facility] Comment on above: Performed By: #### M G1, RFP, CBC ####[place] [address] [place] [phone] Platelet mean volume Entitic volume (Bld) 11.2 fL Normal 9.0-12.7 [facility] Comment on above: Performed By: #### M G1, RFP, CBC ####[place] [address] [place] [phone] Platelets #/vol (Bld) 255 10*3/uL Normal 150-400 [facility] Comment on above: Performed By: #### M G1, RFP, CBC ####[facility] [address] [place], [place] [phone] RBC #/vol (Bld) 4.76 10*6/uL Normal 4.20-6.00 [facility] Comment on above: Performed By: #### M G1, RFP, CBC ####[facility] [address] [place], [place] [phone] WBC #/vol (Bld) 10.29 10*3/uL Normal 3.70-11.00 [facility] Comment on above: Performed By: #### M G1, RFP, CBC ####[facility] [address] [place], [place] [phone] CONSULT PROGon 01-28-2019 Protein mass conc HNO ID: [id number] Author: Shalini Serra MD Service: Otolaryngology Author Type: Resident Type: Consult Progress Note Filed: 01/28/2019 4:28 PM Note Text: [facility] OT[facility] - HEAD AND NECK SURGERY CONSULT PROGRESS NOTE PAGE [phone] AFTER 1700 AND ON WEEKENDS Patient Name: Pancho Lopez Age: [age] year old Sex: male Date: January 28, 2019 Admission Date: 01/23/2019 Hospital Day: 5 ASSESSMENT/PLAN: Pancho Lopez is a 33 year old male with PMHx significant for polysubstance abuse, tobacco abuse, EtOH abuse, HTN, obesity who presented to the hospital on 01/23/2019 transferred from [place] for acute epiglottitis. Patient underwent tracheostomy 01/22/19 for airway protection. ENT was consulted for evaluation. Initial flexible laryngoscopy demonstrated markedly edematous and erythematous epiglottis with purulent exudate, unable to visualize glottis. - Continue Vanc/zosyn for epiglottitis - No indication for steroids for airway edema as patient has trach. Would also not be able to trend WBC to monitor infection with steroid induced leukocytosis. - Can defer CT scan for now as he is demonstrating improvement on serial scope exams - OK for trach cuff down as long as he is handling secretions - No immediate plans for decannulation - Will plan to cut sutures POD 5-7 and downsize to cuffless trach if patient is tolerating trach collar - Remainder of care per primary team - Please page ENT with any questions or concerns SUBJECTIVE: BENITO OBJECTIVE: Physical Examination: 01/28/19 0500 01/28/19 0515 01/28/19 0530 01/28/19 0545 BP: 167/83 158/85 153/81 145/76 Pulse: 84 73 61 60 Resp: 17 16 15 15 Temp: TempSrc: SpO2: 99% 98% 98% 97% Weight: Height: General: NAD Airway: 8.[address] in place, 4x anchoring sutures, soft collar. On Trach collar Neck: soft, symmetric. No fluctuance or crepitus. No tenderness on palpation bilaterally. Appropriately tender around tracheostomy. Procedure: Flexible laryngoscopy After spraying the right nose with 2% lidocaine/0.5% neosynephrine, the flexible scope was placed in a transnasal fashion through the right nare. The nasal passageways were normal with no signs of polyps or pus. There was no inferior turbinate hypertrophy. No masses were visualized in the nasopharynx, oropharynx, hypopharynx including the pyriform sinuses. The base of tongue showed no gross lesions. Prominent lingual tonsil hypertrophy. The epiglottis decreased in size, and less bulbous compared to prior. Erythema is improved. Able to visualize glottis. No obvious glottic swelling, bilateral TVC motion intact. Procedure performed by Shalini Serra MD and saved on Clear Scope. LABS: Blood: Recent Labs 01/27/19 2326 01/26/19 2344 01/26/19 0123 WBC 10.29 9.33 8.30 HB 13.6 13.2 12.7* HCT 38.2* 37.5* 35.7* PLT 255 226 194 MCV 80.3 82.8 86.4 MCH 28.6 29.1 30.8 MCHC 35.6 35.2 35.6 RDWCV 11.5 11.6 11.9 MPV 11.2 11.7 11.6 NEUTP -- -- 64.6 LYMPHP -- -- 18.6 MONOP -- -- 10.4 EODINP -- -- 6.0 BASOP -- -- 0.4 ABSNEUT -- -- 5.37 ABSMONO -- -- 0.86 ABSEOSIN -- -- 0.50* ABSBASO -- -- 0.03 Recent Labs 01/27/19 2326 01/26/19 2344 01/26/19 0123 NA 136 137 142 K 4.0 4.4 4.2 CHLOR 99 102 109* CO2 22 25 22 BUN 26* 25* 20 CREAT 1.05 1.32* 1.43* GLUC 112* 107* 93 CA 9.3 9.3 8.9 MG 2.0 2.1 2.0 P 2.7 3.3 5.2* No results for input(s): PTSEC, INR, APTT in the last 72 hours. 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 Wide incision with large patent stoma. A 6.0 CFS trach was placed without difficulty and secured using a soft trach collar. Patient tolerated procedure well without complications. Plan: - Capping trial as tolerated (maintain on continuous pulse ox) - Routine trach care by RT - Will repeat scope tomorrow Shalini Serra MD Otolaryngology, PGY-2 Personal Pager: [phone] For questions after hours or on weekends please page [phone] Normal [facility] ECG COMPLETEon 01-28-2019 ECG COMPLETE NAME : RAJNI LOPEZ PID : [id number] : 1985 Gender : Male Race : ORD : [id number] Procedure Date : Jan 28 2019 08:15:20 Edit Date : Feb 01 2019 11:39:21 Diagnosis:NORMAL SINUS RHYTHM INFERIOR MYOCARDIAL INFARCTION , AGE UNDETERMINED ABNORMAL ECG Confirmed by HARDEEP OVIEDO M.D. ([id number]) on 02/01/2019 11:30:21 AM Ventricular Rate : 60 BPM Atrial Rate : 60 BPM P-R Interval : 160 ms QRS Duration : 112 ms Q-T Interval : 438 ms QTC Calculation(Bezet) : 438 ms P [place] : 12 degrees R [place] : 23 degrees T [place] : 12 degrees Test Reason : Medication Location : 35 : G62 18 Overread By : HARDEEP OVIEDO M.D. Edited By : HARDEEP OVIEDO M.D. Referred By : , Acquired by : MIKE ESPINOZA Normal [facility] Magnesiumon 01-28-2019 Magnesium mass conc 2.0 mg/dL Normal 1.7-2.3 [facility] Comment on above: Performed By: #### M G1, RFP, CBC ####[facility] [address] [place], [place] [phone] NUTRITIONon 01-28-2019 NUTRITION HNO ID: [id number] Author: Madonna Alejandre (Jorge) Shannon Service: NST-Nutrition Support Team Author Type: Registered Dietitian Type: Nutrition Filed: 01/28/2019 1:45 PM Note Text: NUTRITION SUPPORT TEAM PROGRESS NOTE SERVICE DATE: 01/28/2019 SERVICE TIME: 1:30PM RECOMMENDED DIAGNOSIS: MILD PROTEIN-CALORIE MALNUTRITION per Registered Dietitian on 01/25 NUTRITION CARE PLAN Intervention: Parenteral nutrition - recommend continuing with current PPN: 2000 milliliters, 83 milliliters/hour 105 grams 10% amino acids 440 dextrose calories Goal: Parenteral nutrition intake provides >90% estimated nutritional requirements Discharge Nutrition Recommendations: To be determined Per HPI: 33 year old male with acute epiglottitis, S/P trach 01/22, acute respiratory failure, obstructive lung disease, SHARON ? Relevant medical/surgical history:?polysubstance abuse (methamphetamines, opioids - on methadone, alcohol) ???HTN ???obesity Interval History: Stable electrolytes Nutritional Intake: Average daily caloric and protein intake from parenteral nutrition (01/25 - 01/27): 507 calories, 62 grams protein Percentage estimated energy requirement from nutrition: 28% Percentage estimated protein requirement from nutrition: 34% Reasons for underfeeding: - use of PPN - initiation and advancement of PPN on 01/25 - suspected incomplete documentation of intake on 01/27 No diet orders placed this encounter Lines and Drains: Peripheral 01/25/19 0337 Short Right Arm 18 Gauge (Active) Peripheral 01/25/19 0338 Short Right Hand 22 Gauge (Active) Peripheral 01/28/19 0111 Left Hand 22 Gauge (Active) Height: 198.1 cm (6' 6) Admission Weight: (!) 164.8 kg (363 lb 5.1 oz) Current Weight: (!) 161.2 kg (355 lb 6.1 oz) Body mass index is 41.07 kg/m?. class 3 obesity Weight history: unknown Weight changes during hospitalization: weight loss due to fluid losses ? [place] Body Weight:?97.5kg Dosing Weight:?163.8?kg Resting Metabolic Rate: 2722 Estimated kilocalorie needs:?1802 - 2293?kilocalories determined by 11 - 14?kcal/kg Estimated protein needs:?185 - 244?grams determined by 2.0 - 2.5 g/kg?[place]?weight Recent Labs 01/27/19 2326 GLUC 112* BUN 26* CREAT 1.05 NA 136 K 4.0 CHLOR 99 CO2 22 ALB 3.7* P 2.7 HB 13.6 HCT 38.2* WBC 10.29 MG 2.0 MNT Billing Type: Re-assess/15 min 2 units SIGNATURE: Li Ortega MS RD LD PATIENT NAME: Pancho Lopez DATE: January 28, 2019 TIME: 1:41 PM PAGER: [phone] Normal [facility] PROGRESSon 01-28-2019 Protein mass conc HNO ID: [id number] Author: Stephanie Lofton Service: Critical Care Author Type: Resident Type: Progress Notes Filed: 01/28/2019 8:20 PM Note Text: [facility] PROGRESS NOTE (Template ID [id number]) Pancho Lopez [id number] Admit Date: January 23, 2019 PRIMARY SERVICE: Medical Intensive care unit PLAN FOR TODAY - Trach exchanged and cuff down - Continue antibiotics for total 7-10 days (ENT to reeval tomorrow) - DC nicardipine gtt - Enalaprilat 2.5 mg and labetalol 20 mg Q6h - TSH - Haldol PRN - Miralax when PO access, suppository available - PT/OT - Continue PPN - Transfer once BPs controlled Hypertension improving, unclear if secondary source. Cr normalizing on ACEI, unlikely intrinsic kidney disease or renovascular. Considered withdrawal, improved with morphine, but not currently having other symptoms. Pain is controlled. No longer agitated. INTERVAL EVENTS / PERTINENT ROS: No acute events overnight. BPs improved with nicardipine gtt. Has been less agitated and pain is under better control, uses morphine sparingly. Fluid net negative since admit. TELEMETRY: sinus bradycardia VENT SETTINGS: PSV mode, 40 % FiO2 PHYSICAL EXAM: BP 164/96 Pulse (!) 56 Temp 36.6 ?C (97.8 ?F) (Oral) Resp 30 Ht 198.1 cm (6' 6) Wt (!) 161.2 kg (355 lb 6.1 oz) SpO2 97% BMI 41.07 kg/m? Body mass index is 41.07 kg/m?. Intake/Output Summary (Last 24 hours) at 01/28/20192005 Last data filed at 01/28/2019 1800 Gross per 24 hour Intake 2780 ml Output 2500 ml Net 280 ml GEN: no acute distress, alert SKIN: no rashes or lesions HEENT: non-icteric, EOM intact CARDIAC: RRR without murmur or gallop LUNG: CTAB, trach collar ABDOMEN: soft, nontender, BS+ EXTREMITIES: no edema or discoloration NEURO: alert, answering questions, no focal deficits noted ? ASSESSMENT AND PLAN: Pancho Lopez is a 33 y.o. M w/PMH of multiple substance abuse who presents with concern for epiglottitis. ? Neurological: - Intubated and sedated 2/2 agitation at the OSH - Outside notes mention belligerence etc. when not heavily sedated, in addition to the patient being asked to be knocked out - Hx notable for polysubstance abuse including methamphetamines in the previous week - ongoing agitation PLAN: - Monitor for signs of agitation - Slowly wean sedation; restraints as needed to keep patient safe - Avoid opioids, sedatives, benzos as able - baseline EKG - Haldol scheduled and PRN ? Cardiovascular: - Notably hypertensive at OSH. Was controlled with hydralazine PLAN: - Enalprilat and labetalol scheduled - Labetalol PRN ? Respiratory: - Intubated and sedated on the vent 2/2 upper airway obstruction secondary to epiglottitis PLAN: - decrease sedation - continue mechanical ventilation on pressure support - continue vanco and zosyn, de-escalate as able - appreciate ENT assistance ? Infectious Disease: - Labs at OSH notable for WBC to 32.9, granted, this was after administration of steroids. - Imaging concerning for epiglottitis - Notes mention initial treatment with zosyn, followed by vancomycin and ceftriaxone. Last notes prior to transfer show administration of unasyn. Unclear the duration of these medications or the accuracy of these notes. Improvement of WBC to 15 at OSH. - Epiglottis edematous and purulent with slightly less erythema on scope 01/26. PLAN: - follow blood cultures x2 - Dcd vanc - continue zosyn, de-escalate as able - No need for steroids due to trach and complicating WBC trend - appreciate ENT assistance - Follow CBC for WBC count ? Endocrine - no acute concerns - blood sugars well controlled ? Gastrointestinal/Nutrition: - unlikely PO intake - consult for PPN - GI PPx Dcd ? Renal: - Outside labs notable for SHARON. No baseline CKD. Unclear etiology but likely relates to possible severe sepsis. - SHARON improving - FeNa 2% and 2-5 RBCs on UA without casts, do not suspect PSGN at this point - Possibility of chronic CKD given elevated BPs going untreated for years (had previously tried HCTZ when he had insurance) PLAN: - Continue to follow RFP - Renally dose medications - No dialysis needs ? Prophylaxis: DVT PPX: Heparin 5000 u GI PPX: Protonix 40 mg qd ? Plan will be discussed with MICU Staff. ? ? PATIENT CHECKLIST ? Are restraints necessary: No ? Deep vein thrombosis prophylaxis administered? Yes ? Stress ulcer prophylaxis? No ? Nasogastric tube? No ? Agrawal catheter necessary? No ? Is central line essential? No ? Plan discussed with assigned RN? Yes ? Family updated within last 24 hours? Yes Stephanie Lofton, PGY-2 Internal Medicine [id number] January 28, 2019 Normal [facility] Protein mass conc HNO ID: [id number] Author: Riley Leach Service: Pulmonary Disease Author Type: Physician Type: Progress Notes Filed: 01/28/2019 7:24 PM Note Text: [facility] STAFF PHYSICIAN NOTE OF PERSONAL INVOLVEMENT IN CARE I have reviewed the clinical information obtained and documented by the resident's note and I personally participated in the casiano components. I have discussed the case and management of the patient's care. The following comments revise or confirm relevant casiano components of the note. Pancho Lopez is a 33 year old male with PMH?polysubstance use?who presented to the ICU with epiglottitis.? ? Active Problems:? - Epiglottitis necessitating tracheostomy. - Slowly improving. - Obstructive lung disease- on vent, there was prolonged expiratory phase. ?Improved w/ albuterol. ?No physical obstruction noted. - polysubstance use. ? - SHARON - improving.? - Hypertensive urgency. ? ? Plan:? -?Haldol prn for agitation - Morphine prn for pain. - Continue zosyn for epiglottitis.??? - COntinue?on trach collar as tolerated.? Cuff down today. Eventual trach change to cuffless. - PPN for nutrition - INcrease enaliprilat and labetalol for htn. ? This patient has a high probability of sudden, clinically significant deterioration, which requires the highest level of physician preparedness to intervene urgently. I managed/supervised life or organ supporting interventions that required frequent physician assessment. I devoted my full attention to the direct care of this patient for the amount of time indicated below. Time I spent with family or surrogate(s) is included only if the patient was incapable of providing the necessary information or participating in medical decision making. Time devoted to teaching and to any procedures I billed separately is not included. Critical Care Documentation: The patient has the following organ/system impairment(s): Complex life-threatening medical problem(s) Time spent providing critical care services: 30 minutes. The time excludes any associate procedures which will be documented and billed separately. SIGNATURE:Riley Leach MD [facility] P[facility]ER: [phone] DATE of SERVICE: January 28, 2019 TIME of SERVICE: 7:22 PM Normal [facility] Renal Function Panelon 01-28 Albumin mass conc 3.7 g/dL Low 3.9-4.9 [facility] Comment on above: Performed By: #### M G1, RFP, CBC ####[facility] [address], [place] [phone] Anion gap molar conc 15 mmol/L Normal 9-18 [facility] Comment on above: Performed By: #### M G1, RFP, CBC ####[facility] [address] [place], [place] [phone] Calcium mass conc 9.3 mg/dL Normal 8.5-10.2 [facility] Comment on above: Performed By: #### M G1, RFP, CBC ####[facility], [place] [phone] Chloride molar conc 99 mmol/L Normal 97-105 [facility] Comment on above: Performed By: #### M G1, RFP, CBC ####[facility], [place] [phone] CO2 molar conc 22 mmol/L Normal 22-30 [facility] Comment on above: Performed By: #### M G1, RFP, CBC ####[place] [address], [place] [phone] Creatinine mass conc 1.05 mg/dL Normal 0.73-1.22 [facility] Comment on above: Performed By: #### M G1, RFP, CBC ####[facility], [place] [phone] eGFR- Amer. >60 Normal [facility] Comment on above: Performed By: #### M G1, RFP, CBC ####[place] [address] [place], [place] [phone] GFR/1.73 sq M predicted among non-blacks MDRD vol rate/area (S/P/Bld) mL/min/{1.73_m2} Normal [facility] Comment on above: Result Comment: eGFR (Estimated GFR) Units of measure: mL/min/1.73 meters squared eGFR is derived from the reexpressed MDRD Study equation using the following parameters: serum creatinine, age, gender and race. The creatinine assay has been calibrated to be traceable to IDMS. An eGFR <60 mL/min/1.73m2 for >3 months is consistent with chronic kidney disease. Refer to KDOQI guidelines for clinical interpretation. In patients with unstable renal function, e.g. those with acute kidney injury, the eGFR may not accurately reflect actual GFR. Performed By: #### M G1, RFP, CBC ####[place] [address] [place], [place] [phone] Glucose mass conc 112 mg/dL High 74-99 [facility] Comment on above: Result Comment: The [place] Diabetes Association (ADA) provides guidance for cutoff values for fasting glucose and random glucose. The ADA defines fasting as no caloric intake for at least 8 hours. Fasting plasma glucose results between 100 to 125 mg/dL indicate increased risk for diabetes (prediabetes). Fasting plasma glucose results greater than or equal to 126 mg/dL meet the criteria for diagnosis of diabetes. In the absence of unequivocal hyperglycemia, results should be confirmed by repeat testing. In a patient with classic symptoms of hyperglycemia or hyperglycemic crisis, random plasma glucose results greater than or equal to 200 mg/dL meet the criteria for diagnosis of diabetes. Reference: Standards of Medical Care in Diabetes 2016, [place] [employer]. Diabetes Care. 2016.39(Suppl 1). Performed By: #### M G1, RFP, CBC ####[address] [phone] Phosphate mass conc 2.7 mg/dL Normal 2.7-4.8 [facility] Comment on above: Performed By: #### M G1, RFP, CBC ####[address] [phone] Potassium molar conc 4.0 mmol/L Normal 3.7-5.1 [facility] Comment on above: Performed By: #### M G1, RFP, CBC ####[facility] [place], [place] [phone] Sodium molar conc 136 mmol/L Normal 136-144 [facility] Comment on above: Performed By: #### M G1, RFP, CBC ####[place] [address] [place], [place] [phone] Urea nitrogen mass conc 26 mg/dL High 9-24 [facility] Comment on above: Performed By: #### M G1, RFP, CBC ####[facility] [place] [address] [phone] CBCon 01-27-2019 Absolute nRBC <0.01 Normal <0.01 [facility] Comment on above: Performed By: #### M G1, RFP, CBC ####[place] [address] [place] [phone] Erythrocyte distribution width Ratio (RBC) 11.6 % Normal 11.5-15.0 [facility] Comment on above: Performed By: #### M G1, RFP, CBC ####[place] [address] [place] [phone] Hematocrit Volume Fraction (Bld) 37.5 % Low 39.0-51.0 [facility] Comment on above: Performed By: #### M G1, RFP, CBC ####[place] [address] [place] [phone] Hemoglobin mass conc (Bld) 13.2 g/dL Normal 13.0-17.0 [facility] Comment on above: Performed By: #### M G1, RFP, CBC ####[place] [address] [place] [phone] MCH Entitic mass (RBC) 29.1 pG Normal 26.0-34.0 [facility] Comment on above: Performed By: #### M G1, RFP, CBC ####[place] [address] [place] [phone] MCHC mass conc (RBC) 35.2 g/dL Normal 30.5-36.0 [facility] Comment on above: Performed By: #### M G1, RFP, CBC ####[place] [address] [place] [phone] MCV Entitic volume (RBC) 82.8 fL Normal 80.0-100.0 [facility] Comment on above: Performed By: #### M G1, RFP, CBC ####[place] [address] [place] [phone] Platelet mean volume Entitic volume (Bld) 11.7 fL Normal 9.0-12.7 [facility] Comment on above: Performed By: #### M G1, RFP, CBC ####[facility], [place] [phone] Platelets #/vol (Bld) 226 10*3/uL Normal 150-400 [facility] Comment on above: Performed By: #### M G1, RFP, CBC ####[place] [address], [place] [phone] RBC #/vol (Bld) 4.53 10*6/uL Normal 4.20-6.00 [facility] Comment on above: Performed By: #### M G1, RFP, CBC ####[place] [address] [place], [place] [phone] WBC #/vol (Bld) 9.33 10*3/uL Normal 3.70-11.00 [facility] Comment on above: Performed By: #### M G1, RFP, CBC ####[facility] [place], [place] [phone] Magnesiumon 01-27-2019 Magnesium mass conc 2.1 mg/dL Normal 1.7-2.3 [facility] Comment on above: Performed By: #### M G1, RFP, CBC ####[facility] [place], [place] [phone] NUTRITIONon 01-27-2019 NUTRITION HNO ID: [id number] Author: Madonna Ortega Service: NST-Nutrition Support Team Author Type: Registered Dietitian Type: Nutrition Filed: 01/27/2019 12:20 PM Note Text: NUTRITION SUPPORT TEAM PROGRESS NOTE SERVICE DATE: 01/27/2019 SERVICE TIME: 11:30AM RECOMMENDED DIAGNOSIS: MILD PROTEIN-CALORIE MALNUTRITION per Registered Dietitian on 01/25 NUTRITION CARE PLAN Intervention: Parenteral nutrition - recommend continuing with current PPN: 2000 milliliters, 83 milliliters/hour 105 grams 10% amino acids 440 dextrose calories Goal: Parenteral nutrition intake provides >90% estimated nutritional requirements Discharge Nutrition Recommendations: To be determined Per HPI: 33 year old male with acute epiglottitis, S/P trach 01/22, acute respiratory failure, obstructive lung disease, SHARON, agitation (improved) ? Relevant medical/surgical history:?polysubstance abuse (methamphetamines, opioids - on methadone, alcohol) ???HTN ???obesity Interval History: Stable electrolytes No diet orders placed this encounter PPN - providing 860 calories, 105 grams protein Lines and Drains: Peripheral 01/25/19 0337 Short Right Arm 18 Gauge (Active) Peripheral 01/25/19 0337 Short Right Forearm 20 Gauge (Active) Peripheral 01/25/19 0338 Short Right Hand 22 Gauge (Active) Height: 198.1 cm (6' 6) Admission Weight: (!) 164.8 kg (363 lb 5.1 oz) Current Weight: (!) 161.2 kg (355 lb 6.1 oz) Body mass index is 41.07 kg/m?. class 3 obesity Weight history: unknown ? [place] Body Weight:?97.5kg Dosing Weight:?163.8?kg Resting Metabolic Rate: 2722 Estimated kilocalorie needs:?1802 - 2293?kilocalories determined by 11 - 14?kcal/kg Estimated protein needs:?185 - 244?grams determined by 2.0 - 2.5 g/kg?[place]?weight Recent Labs 01/26/19 2344 GLUC 107* BUN 25* CREAT 1.32* NA 137 K 4.4 CHLOR 102 CO2 25 ALB 3.7* P 3.3 HB 13.2 HCT 37.5* WBC 9.33 MG 2.1 MNT Billing Type: Re-assess/15 min 2 units SIGNATURE: Li Ortega, MS RD LD PATIENT NAME: Pancho Lopez DATE: January 27, 2019 TIME: 12:16 PM PAGER: [phone] Normal [facility] PROGRESSon 01-27-2019 Protein mass conc HNO ID: [id number] Author: Stephanie Lofton Service: Critical Care Author Type: Resident Type: Progress Notes Filed: 01/27/2019 4:31 PM Note Text: Attestation signed by Riley Leach at 01/28/2019 7:11 AM [facility] STAFF PHYSICIAN NOTE OF PERSONAL INVOLVEMENT IN CARE I have reviewed the clinical information obtained and documented by the resident's note and I personally participated in the casiano components. I have discussed the case and management of the patient's care. The following comments revise or confirm relevant casiano components of the note. Pancho Lopez is a 33 year old male with PMH polysubstance use who presented to the ICU with epiglottitis. Active Problems: - Epiglottitis necessitating tracheostomy. - Slowly improving. - Obstructive lung disease- on vent, there was prolonged expiratory phase. Improved w/ albuterol. No physical obstruction noted. - polysubstance use. - SHARON - improving. Plan: - Continue scheduled and prn haldol for agitation. Weaning. - Morphine - will need to taper in the hospital given polysubst abuse hx. - Continue vanc/zosyn for epiglottitis. - Will repeat CT neck/chest down the road once SHARON resolved. - COntinue on trach collar as tolerated. - PPN for nutrition This patient has a high probability of sudden, clinically significant deterioration, which requires the highest level of physician preparedness to intervene urgently. I managed/supervised life or organ supporting interventions that required frequent physician assessment. I devoted my full attention to the direct care of this patient for the amount of time indicated below. Time I spent with family or surrogate(s) is included only if the patient was incapable of providing the necessary information or participating in medical decision making. Time devoted to teaching and to any procedures I billed separately is not included. Critical Care Documentation: The patient has the following organ/system impairment(s): Respiratory failure (Acute, with Hypoxemia) Time spent providing critical care services: 30 minutes. The time excludes any associate procedures which will be documented and billed separately. SIGNATURE:Riley Leach MD [facility] PAGER: [phone] DATE of SERVICE: January 28, 2019 TIME of SERVICE: 7:09 AM [facility] PROGRESS NOTE (Template ID [id number]) Pancho Lopez [id number] Admit Date: January 27, 2019 LOS: 4 PRIMARY SERVICE: Medical Intensive care unit PLAN FOR TODAY - Epiglottis edematous and purulent with slightly less erythema on scope 01/26 - Continue Zosyn - Change Haldol from Q6h to Q12h, consider change to PRN tomorrow - PT/OT - DC PPI - Continue PPN - Transfer once BPs controlled INTERVAL EVENTS / PERTINENT ROS: Has been on TC. BPs elevated overnight, but asymptomatic. Does not appear to be pain-related, as pain scores do not necessarily match up with hypertensive episodes. Family at bedside say he used to be on BP medications, but has not had insurance for the past few years. TELEMETRY: sinus bradycardia VENT SETTINGS: PSV mode, 40 % FiO2 PHYSICAL EXAM: BP 197/97 Pulse 77 Temp 36.8 ?C (98.2 ?F) (Oral) Resp 19 Ht 198.1 cm (6' 6) Wt (!) 161.2 kg (355 lb 6.1 oz) SpO2 98% BMI 41.07 kg/m? Body mass index is 41.07 kg/m?. Intake/Output Summary (Last 24 hours) at 01/27/2019 1557 Last data filed at 01/27/2019 0900 Gross per 24 hour Intake 2259.8 ml Output 1785 ml Net 474.8 ml GEN: no acute distress, alert SKIN: no rashes or lesions HEENT: non-icteric, EOM intact CARDIAC: RRR without murmur or gallop LUNG: CTAB, trach collar ABDOMEN: soft, nontender, BS+ EXTREMITIES: no edema or discoloration NEURO: alert, answering questions, no focal deficits noted ? ASSESSMENT AND PLAN: Pancho Lopez is a 33 y.o. M w/PMH of multiple substance abuse who presents with concern for epiglottitis. ? Neurological: - Intubated and sedated 2/2 agitation at the OSH - Outside notes mention belligerence etc. when not heavily sedated, in addition to the patient being asked to be knocked out - Hx notable for polysubstance abuse including methamphetamines in the previous week - ongoing agitation PLAN: - Monitor for signs of agitation - Slowly wean sedation; restraints as needed to keep patient safe - Avoid opioids, sedatives, benzos as able - baseline EKG - Haldol scheduled and PRN ? Cardiovascular: - Notably hypertensive at OSH. Was controlled with hydralazine PLAN: - Enalprilat and labetalol scheduled - Labetalol PRN ? Respiratory: - Intubated and sedated on the vent 2/2 upper airway obstruction secondary to epiglottitis PLAN: - decrease sedation - continue mechanical ventilation on pressure support - continue vanco and zosyn, de-escalate as able - appreciate ENT assistance ? Infectious Disease: - Labs at OSH notable for WBC to 32.9, granted, this was after administration of steroids. - Imaging concerning for epiglottitis - Notes mention initial treatment with zosyn, followed by vancomycin and ceftriaxone. Last notes prior to transfer show administration of unasyn. Unclear the duration of these medications or the accuracy of these notes. Improvement of WBC to 15 at OSH. - Epiglottis edematous and purulent with slightly less erythema on scope 01/26. PLAN: - follow blood cultures x2 - Dcd vanc - continue zosyn, de-escalate as able - No need for steroids due to trach and complicating WBC trend - appreciate ENT assistance - Follow CBC for WBC count ? Endocrine - no acute concerns - blood sugars well controlled ? Gastrointestinal/Nutrition: - unlikely PO intake - consult for PPN - GI PPx Dcd ? Renal: - Outside labs notable for SHARON. No baseline CKD. Unclear etiology but likely relates to possible severe sepsis. - SHARON improving - FeNa 2% and 2-5 RBCs on UA without casts, do not suspect PSGN at this point - Possibility of chronic CKD given elevated BPs going untreated for years (had previously tried HCTZ when he had insurance) PLAN: - Continue to follow RFP - Renally dose medications - No dialysis needs ? Prophylaxis: DVT PPX: Heparin 5000 u GI PPX: Protonix 40 mg qd ? Plan will be discussed with MICU Staff. ? ? PATIENT CHECKLIST ? Are restraints necessary: No ? Deep vein thrombosis prophylaxis administered? Yes ? Stress ulcer prophylaxis? No ? Nasogastric tube? No ? Agrawal catheter necessary? No ? Is central line essential? No ? Plan discussed with assigned RN? Yes ? Family updated within last 24 hours? Yes Stephanie Kirsty, DO PGY-2 Internal Medicine [id number] January 27, 2019 Normal [facility] Renal Function Panelon 01-27 Albumin mass conc 3.7 g/dL Low 3.9-4.9 [facility] Comment on above: Performed By: #### M G1, RFP, CBC ####[facility] [place] [phone] Anion gap molar conc 10 mmol/L Normal 9-18 [facility] Comment on above: Performed By: #### M G1, RFP, CBC ####[facility] [place] [phone] Calcium mass conc 9.3 mg/dL Normal 8.5-10.2 [facility] Comment on above: Performed By: #### M G1, RFP, CBC ####[facility] [place] [phone] Chloride molar conc 102 mmol/L Normal 97-105 [facility] Comment on above: Performed By: #### M G1, RFP, CBC ####[facility] [address] [place] [phone] CO2 molar conc 25 mmol/L Normal 22-30 [facility] Comment on above: Performed By: #### M G1, RFP, CBC ####[facility] [address]level[address]rem[address] [place] [phone] Creatinine mass conc 1.32 mg/dL High 0.73-1.22 [facility] Comment on above: Performed By: #### M G1, RFP, CBC ####[facility] [address]levelJerem[address] [place] [phone] eGFR- Amer. >60 Normal [facility] Comment on above: Performed By: #### M G1, RFP, CBC ####[facility] [address] [place], [place] [phone] GFR/1.73 sq M predicted among non-blacks MDRD vol rate/area (S/P/Bld) mL/min/{1.73_m2} Normal [facility] Comment on above: Result Comment: eGFR (Estimated GFR) Units of measure: mL/min/1.73 meters squared eGFR is derived from the reexpressed MDRD Study equation using the following parameters: serum creatinine, age, gender and race. The creatinine assay has been calibrated to be traceable to IDMS. An eGFR <60 mL/min/1.73m2 for >3 months is consistent with chronic kidney disease. Refer to KDOQI guidelines for clinical interpretation. In patients with unstable renal function, e.g. those with acute kidney injury, the eGFR may not accurately reflect actual GFR. Performed By: #### M G1, RFP, CBC ####[facility] [place], [place] [phone] Glucose mass conc 107 mg/dL High 74-99 [facility] Comment on above: Result Comment: The [place] Diabetes Association (ADA) provides guidance for cutoff values for fasting glucose and random glucose. The ADA defines fasting as no caloric intake for at least 8 hours. Fasting plasma glucose results between 100 to 125 mg/dL indicate increased risk for diabetes (prediabetes). Fasting plasma glucose results greater than or equal to 126 mg/dL meet the criteria for diagnosis of diabetes. In the absence of unequivocal hyperglycemia, results should be confirmed by repeat testing. In a patient with classic symptoms of hyperglycemia or hyperglycemic crisis, random plasma glucose results greater than or equal to 200 mg/dL meet the criteria for diagnosis of diabetes. Reference: Standards of Medical Care in Diabetes 2016, [place] [employer]. Diabetes Care. 2016.39(Suppl 1). Performed By: #### M G1, RFP, CBC ####[facility] [address] [place], [place] [phone] Phosphate mass conc 3.3 mg/dL Normal 2.7-4.8 [facility] Comment on above: Performed By: #### M G1, RFP, CBC ####[facility] [address], [place] [phone] Potassium molar conc 4.4 mmol/L Normal 3.7-5.1 [facility] Comment on above: Performed By: #### M G1, RFP, CBC ####[facility] [address], [place] [phone] Sodium molar conc 137 mmol/L Normal 136-144 [facility] Comment on above: Performed By: #### M G1, RFP, CBC ####[facility] [address], [place] [phone] Urea nitrogen mass conc 25 mg/dL High 9-24 [facility] Comment on above: Performed By: #### M G1, RFP, CBC ####[facility] [address] [place], [place] [phone] THERAPY NTon 01-27-2019 THERAPY NT HNO ID: [id number] Author: Irlanda (Pt) Roman Service: Physical Therapy Author Type: Physical Therapist Type: Therapy (PT/OT/Speech/Resp) Filed: 01/27/2019 2:51 PM Note Text: Physical Therapy Evaluation SERVICE DATE: 01/27/2019 SERVICE TIME: 1200 to 1239 ROOM: [place] [address] Recommended Discharge Disposition: Unable to determine due to critical care status Anticipated Discharge Needs: Undetermined Recommended Discharge Equipment: To Be Determined PT Recommendations to Nursing: Transfer to/from chair;With assist of 1 person(assist for line management) PT 6 Clicks Score: 19 Precautions/Activity Restrictions: Lines/Tubes/Drains ASSESSMENT : Patient Disposition at Start of Session: Supine in Bed;Call Mulligan in Reach;Family Present Patient Disposition at End of Session: OOB in Chair;Call Mulligan in Reach;Family Present Tolerated Full Session Patient presents with impaired Strength/Tone, Balance, Coordination, Functional Mobility and Activity Tolerance impacting the ability to function without assistance from caregivers. Patient requires varying level of assist with all functional mobility including Minimal: Tactile, Verbal, Visual, cues for safety. Pt also requires monitoring of vital signs due to fluctuations with activity and instructions/ education regarding safe activity dosing. Pt wishes to return home but needs exceed resources available at this time. Pt requires skilled therapy to address current functional limitations and impairments as well as to progress activities within safe limits. PT to continue to follow pt while in house to continue to progress pt toward IND and to continue to assess to determine appropriate discharge destination. Highest Level of Mobility (JH-HLM) This scale indicates the objective performance level this date and does not reflect clinical judgment of capability. Today the patient scored a 5 on the JH-HLM. Explanations are noted in the chart below. Criteria Score Walk 250+ feet 8 25+ feet 7 10+ steps 6 Stand > 1 minute 5 Chair Transfer to chair 4 Bed Sitting at EOB 3 Turning self/bed activity* 2 Only laying 1 *Includes PROM/AROM, bed exercises and UE/LE movement Physical Therapy Problem List: Education Deficit;Safety Deficits;Impaired Self Care;Decreased Activity Tolerance;Decreased Range Of Motion;Decreased Strength;Functional Mobility Impairment;Balance Impaired;Sensory Deficit Patient /Caregiver Goals: Go Home Goals for Plan of Care: Able to perform HEP with: Independent Rolling with: Independent Transfer supine to/from sit with: Independent Transfer sit to/from stand with: Supervision Ambulate with: Supervision Distance: 150 Device: No Device Ambulate up and down steps with: Supervision Number of steps: 10 Device: Rail Transfer: Bed to chair transfer with IND and no AD Rehab Potential: Excellent PLAN: Treatment Frequency (times per week): 3 Current admission Treatment Interventions: Education;Self Care / Home Management;Energy Conservation Training;Joint Mobility;Strengthening;Func tional Mobility Training;Balance Training;Neuromuscular Re-education Plan of Care developed with: Patient TREATMENT INTERVENTIONS: Therapy Diagnosis: Reduced mobility-other;Muscle Weakness (generalized) Interventions Provided: Evaluation;Therapeutic Activity (52452) $ Evaluation-Low (57260) Billed Units: 1 unit Therapeutic Activity (85723) Treatment Minutes: 23 2 units Skilled Intervention(s): Instructed patient in supine to sit pushing with upper extremities to sit up Scooting EOB: cues for hand and LE placement, weight shifts, safe pre-standing position, breathing/relaxation. Instruction in sit to stand technique with proper hand placement and body positioning at edge of bed/chair x 3 trials Instruction in stand to sit technique with lower extremities touching chair/bed and reaching back for surface x 3 trials Instruction in stand pivot transfer from bed to chair with IC DESIGNER GATE ARRAYS and cues for proper technique, sequencing, pacing, safety. Therapist time for ICU line management and room set-up to allow safe environment for mobility while monitoring pt vitals and s/s of physiological response or fatigue for pt safety. See flowsheet or below for details. Skilled intervention for positioning of pt's trunk, extremities and head/neck at end of session to optimize healing, body alignment, pt safety, pt comfort, offloading, pressure relief and stretching where necessary with use of pillows/cushions/wedges. Education of PT role/responsibility, d/c planning, poc, benefits of mobility, importance of OOB activity with nursing assist, use of call light, safety, activity pacing, precautions. ? Vital Signs Pre Assessment: BP Pre BP: 159/94 Pre BP Position: Supine Post Assessment: BP Post Post BP: 167/91 Post BP Position: Sitting(in recliner) Total Timed Code Treatment Minutes: 23 Total Treatment Time (minutes): 39 SUBJECTIVE: Current Hospital Course: Chart reviewed; 33 year old male who presents to [facility] from OSH with concern for upper airway obstruction. On 01/22, the patient was noted to have developed an SHARON. 01/22 patient taken to the OR for placement of urgent tracheostomy. Pt requested to be transferred to another facility, as he felt like he was not receiving good care. He insisted that he wanted the trach out and that he felt like he was unable to breathe. After being told that it needed to remain in place 2/2 airway protection, he requested to be entirely sedated pending transfer so that he wouldn't freak out. He was sedated as requested pending transfer on 01/23 and out of concern for staff safety. Relevant Past Medical History: polysubstance abuse, tobacco abuse, EtOH abuse, HTN, obesity Patient Report: Pt agreeable to PT. 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 OBJECTIVE: CURRENT FUNCTIONAL STATUS: Current Functional Mobility Assist Level Additional Information Rolling Supine to Sit Stand By Assistance Sit to Supine Stand By Assistance Scooting Stand By Assistance Sit to Stand Stand By Assistance Stand to Sit Stand By Assistance Bed to Chair Stand By Assistance Bed To Chair Transfer Type: Stand Pivot Toilet/Commode Gait Stand By Assistance Gait Device: None Gait Distance (feet): steps in place JH-HLM: 5: Standing (1 or more minutes) Please see discipline specific clinical documentation flowsheet for complete details for this therapy evaluation/treatment. SIGNATURE: Irlanda Owens, PT PATIENT NAME: Pancho Lopez DATE: January 27, 2019 TIME: 1:36 PM Normal [facility] CBC and Differentialon 01-26 Abs Baso 0.03 k/uL Normal <0.11 [facility] Comment on above: Performed By: #### C BCDIF, CMP #### [place] [phone] [place] [phone] Abs [place] 0.86 k/uL Normal <0.87 [facility] Comment on above: Performed By: #### C BCDIF, CMP #### [place] [phone] Abs Neut 5.37 k/uL Normal 1.45-7.50 [facility] Comment on above: Performed By: #### C BCDIF, CMP #### [place] [phone] [place] [phone] Absolute nRBC <0.01 Normal <0.01 [facility] Comment on above: Performed By: #### C BCDIF, CMP #### [place] [phone] [place] [phone] Basophils/100 WBC (Bld) 0.4 % Normal [facility] Comment on above: Performed By: #### C BCDIF, CMP #### [facility] [place] [phone] DTYPE Auto Diff Normal [facility] Comment on above: Performed By: #### C BCDIF, CMP #### [place] [phone] Eosinophils #/vol (Bld) 0.50 10*3/uL High <0.46 [facility] Comment on above: Performed By: #### C BCDIF, CMP #### [place] [phone] [place] [phone] Eosinophils/100 WBC (Bld) 6.0 % Normal [facility] Comment on above: Performed By: #### C BCDIF, CMP #### [place] [phone] Erythrocyte distribution width Ratio (RBC) 11.9 % Normal 11.5-15.0 [facility] Comment on above: Performed By: #### C BCDIF, CMP #### [place] [phone] Hematocrit Volume Fraction (Bld) 35.7 % Low 39.0-51.0 [facility] Comment on above: Performed By: #### C BCDIF, CMP #### [place] [phone] Hemoglobin mass conc (Bld) 12.7 g/dL Low 13.0-17.0 [facility] Comment on above: Performed By: #### C BCDIF, CMP #### [place] [phone] Lymphocytes #/vol (Bld) 1.54 10*3/uL Normal 1.00-4.00 [facility] Comment on above: Performed By: #### C BCDIF, CMP #### [place] [phone] [place] [address] Lymphocytes/100 WBC (Bld) 18.6 % Normal [facility] Comment on above: Performed By: #### C BCDIF, CMP #### [place] [phone] [place] [address] MCH Entitic mass (RBC) 30.8 pG Normal 26.0-34.0 [facility] Comment on above: Performed By: #### C BCDIF, CMP #### [facility] [address] [place] [address] MCHC mass conc (RBC) 35.6 g/dL Normal 30.5-36.0 [facility] Comment on above: Performed By: #### C BCDIF, CMP #### [place] [phone] [place] [phone] MCV Entitic volume (RBC) 86.4 fL Normal 80.0-100.0 [facility] Comment on above: Performed By: #### C BCDIF, CMP #### [place] [phone] [place] [phone] Monocytes/100 WBC (Bld) 10.4 % Normal [facility] Comment on above: Performed By: #### C BCDIF, CMP #### [place] [phone] [place] [phone] Neutrophils/100 WBC (Bld) 64.6 % Normal [facility] Comment on above: Performed By: #### C BCDIF, CMP #### [place] [phone] [place] [phone] NRBCs 0.0 /100 WBC Normal 0 [facility] Comment on above: Performed By: #### C BCDIF, CMP #### [place] [phone] [place] [phone] Platelet mean volume Entitic volume (Bld) 11.6 fL Normal 9.0-12.7 [facility] Comment on above: Performed By: #### C BCDIF, CMP #### [place] [phone] [place] [phone] Platelets #/vol (Bld) 194 10*3/uL Normal 150-400 [facility] Comment on above: Performed By: #### C BCDIF, CMP #### [place] [phone] [place] [address] RBC #/vol (Bld) 4.13 10*6/uL Low 4.20-6.00 [facility] Comment on above: Performed By: #### C BCDIF, CMP #### [facility] [address] [place], [place] [address] WBC #/vol (Bld) 8.30 10*3/uL Normal 3.70-11.00 [facility] Comment on above: Performed By: #### C BCDIF, CMP #### [facility] [address] [place] [address] CONSULT PROGon 01-26-2019 Protein mass conc HNO ID: [id number] Author: Shalini Serra MD Service: Otolaryngology Author Type: Resident Type: Consult Progress Note Filed: 01/26/2019 8:01 AM Note Text: [facility] OT[facility] - HEAD AND NECK SURGERY CONSULT PROGRESS NOTE PAGE [phone] AFTER 1700 AND ON WEEKENDS Patient Name: Pancho Lopez Age: [age] year old Sex: male Date: January 26, 2019 Admission Date: 01/23/2019 Hospital Day: 3 ASSESSMENT/PLAN: Pancho Lopez is a 33 year old male with PMHx significant for polysubstance abuse, tobacco abuse, EtOH abuse, HTN, obesity who presented to the hospital on 01/23/2019 transferred from [facility] for acute epiglottitis. Patient underwent tracheostomy 01/22/19 for airway protection. ENT was consulted for evaluation. Flexible laryngoscopy demonstrated markedly edematous and erythematous epiglottis with purulent exudate, unable to visualize glottis. - Continue Vanc/zosyn for epiglottitis - No indication for steroids for airway edema as patient has trach. Would also not be able to trend WBC to monitor infection with steroid induced leukocytosis. - Please obtain CT neck w IV contrast when safe from renal standpoint - No immediate plans for decannulation - Will plan to cut sutures POD 5-7 and downsize to cuffless trach if patient is tolerating trach collar - Remainder of care per primary team - Please page ENT with any questions or concerns SUBJECTIVE: BENITO OBJECTIVE: Physical Examination: 01/26/19 0300 01/26/19 0400 01/26/19 0500 01/26/19 0600 BP: 148/71 149/67 131/62 147/73 Pulse: 71 67 66 71 Resp: 9 11 8 7 Temp: 36.7 ?C (98 ?F) TempSrc: Axillary SpO2: 100% 100% 100% 100% Weight: Height: General: Agitated and uncooperative Airway: 8.[address] place, 4x anchoring sutures, soft collar. On ventilator. Neck: soft, symmetric. No fluctuance or crepitus. No tenderness on palpation bilaterally. Appropriately tender around tracheostomy. Procedure: Flexible laryngoscopy After spraying the right nose with 2% lidocaine/0.5% neosynephrine, the flexible scope was placed in a transnasal fashion through the right nare. The nasal passageways were normal with no signs of polyps or pus. There was no inferior turbinate hypertrophy. No masses were visualized in the nasopharynx, oropharynx, hypopharynx including the pyriform sinuses. The base of tongue showed no gross lesions and prominent lingual tonsils. The epiglottis is markedly edematous with beefy erythema and purulent exudate. Erythema is mildly improved from prior exam, however continues to be bulbous in shape and markedly enlarged with obstruction of airway. Unable to visualize glottis beyond the epiglottis. Procedure performed by Shalini Serra MD LABS: Blood: Recent Labs 01/26/19 0123 01/25/19 0141 01/24/19 0302 WBC 8.30 7.83 11.09* HB 12.7* 11.7* 11.8* HCT 35.7* 35.5* 36.3* PLT 194 182 186 MCV 86.4 88.5 89.2 MCH 30.8 29.2 29.0 MCHC 35.6 33.0 32.5 RDWCV 11.9 12.3 13.0 MPV 11.6 11.9 11.8 NEUTP 64.6 63.8 69.0 LYMPHP 18.6 21.7 19.7 MONOP 10.4 9.7 9.6 EODINP 6.0 4.3 1.3 BASOP 0.4 0.5 0.4 ABSNEUT 5.37 4.99 7.67* ABSMONO 0.86 0.76 1.06* ABSEOSIN 0.50* 0.34 0.14 ABSBASO 0.03 0.04 0.04 Recent Labs 01/26/19 0123 01/25/19 0141 01/24/19 1029 01/24/19 0302 NA 142 147* 141 146* K 4.2 3.1* 3.6* 3.9 CHLOR 109* 112* 108* 108* CO2 22 20* 22 25 BUN 20 19 24 28* CREAT 1.43* 1.29* 1.57* 1.62* GLUC 93 90 94 81 CA 8.9 7.6* 8.4* 9.1 MG 2.0 1.9 -- 2.2 P 5.2* 2.7 -- 3.6 No results for input(s): PTSEC, INR, APTT in the last 72 hours. Shalini Serra MD Otolaryngology, PGY-2 Personal Pager: [phone] For questions after hours or on weekends please page [phone] Normal [facility] Comp Metabolic Panelon 01-26 Albumin mass conc 3.2 g/dL Low 3.9-4.9 [facility] Comment on above: Performed By: #### C BCDIF, CMP #### [facility] [address] [place], [place] [address] ALP enzyme act/vol 82 U/L Normal 38-113 [facility] Comment on above: Performed By: #### C BCDIF, CMP #### [facility] [address] [place], [place] [address] ALT enzyme act/vol 33 U/L Normal 10-54 [facility] Comment on above: Performed By: #### C BCDIF, CMP #### [facility] [address] [place], [place] [address] Anion gap molar conc 11 mmol/L Normal 9-18 [facility] Comment on above: Performed By: #### C BCDIF, CMP #### [facility] [address] [place], [place] [address] AST enzyme act/vol 23 U/L Normal 14-40 [facility] Comment on above: Performed By: #### C BCALBAF, CMP #### [place] [phone] [place] [phone] Bilirubin mass conc 0.6 mg/dL Normal 0.2-1.3 [facility] Comment on above: Performed By: #### C BCDIF, CMP #### [place] [phone] Calcium mass conc 8.9 mg/dL Normal 8.5-10.2 [facility] Comment on above: Performed By: #### C BCALBAF, CMP #### [place] [phone] Chloride molar conc 109 mmol/L High 97-105 [facility] Comment on above: Performed By: #### C BCDIF, CMP #### [place] [phone] CO2 molar conc 22 mmol/L Normal 22-30 [facility] Comment on above: Performed By: #### C BCDIF, CMP #### [place] [phone] Creatinine mass conc 1.43 mg/dL High 0.73-1.22 [facility] Comment on above: Performed By: #### C BCDIF, CMP #### [place] [address] eGFR- Amer. >60 Normal [facility] Comment on above: Performed By: #### C BCDIF, CMP #### [place] [address] GFR/1.73 sq M predicted among non-blacks MDRD vol rate/area (S/P/Bld) 57 . Normal [facility] Comment on above: Result Comment: eGFR (Estimated GFR) Units of measure: mL/min/1.73 meters squared eGFR is derived from the reexpressed MDRD Study equation using the following parameters: serum creatinine, age, gender and race. The creatinine assay has been calibrated to be traceable to IDMS. An eGFR <60 mL/min/1.73m2 for >3 months is consistent with chronic kidney disease. Refer to KDOQI guidelines for clinical interpretation. In patients with unstable renal function, e.g. those with acute kidney injury, the eGFR may not accurately reflect actual GFR. Performed By: #### C BCDIF, CMP #### [facility] [employer] [address] [place], [place] [address] Glucose mass conc 93 mg/dL Normal 74-99 [facility] Comment on above: Result Comment: The [place] Diabetes Association (ADA) provides guidance for cutoff values for fasting glucose and random glucose. The ADA defines fasting as no caloric intake for at least 8 hours. Fasting plasma glucose results between 100 to 125 mg/dL indicate increased risk for diabetes (prediabetes). Fasting plasma glucose results greater than or equal to 126 mg/dL meet the criteria for diagnosis of diabetes. In the absence of unequivocal hyperglycemia, results should be confirmed by repeat testing. In a patient with classic symptoms of hyperglycemia or hyperglycemic crisis, random plasma glucose results greater than or equal to 200 mg/dL meet the criteria for diagnosis of diabetes. Reference: Standards of Medical Care in Diabetes 2016, [place] [employer]. Diabetes Care. 2016.39(Suppl 1). Performed By: #### C BCDIF, CMP #### [facility] [address] [place], [place] [address] Potassium molar conc 4.2 mmol/L Normal 3.7-5.1 [facility] Comment on above: Performed By: #### C BCDIF, CMP #### [facility] [address] [place], [place] [address] Protein mass conc 6.5 g/dL Normal 6.3-8.0 [facility] Comment on above: Performed By: #### C BCDIF, CMP #### [facility] [employer] [address] [place], [place] [address] Sodium molar conc 142 mmol/L Normal 136-144 [facility] Comment on above: Performed By: #### C BCDIF, CMP #### [facility] [address] [place], [place] [address] Urea nitrogen mass conc 20 mg/dL Normal 9-24 [facility] Comment on above: Performed By: #### C BCDIF, CMP #### [facility] [address] [place], [place] [address] Creatinine,Urine,Ranon 01-26 Creatinine,Urine,Ra n 71.4 mg/dL Normal 20-300 [facility] Comment on above: Performed By: #### U AWMIC, UCRR, UNAR ####[facility] [place], [place] [phone] ECG COMPLETEon 01-26-2019 ECG COMPLETE NAME : RAJNI LOPEZ PID : [id number] : 1985 Gender : Male Race : ORD : [id number] Procedure Date : Jan 26 2019 09:12:34 Edit Date : Jan 27 2019 13:52:08 Diagnosis:NORMAL SINUS RHYTHM POSSIBLE INFERIOR MYOCARDIAL INFARCTION , AGE UNDETERMINED ABNORMAL ECG Confirmed by TOPHER MADISON M.D. ([id number]) on 01/27/2019 1:52:07 PM Ventricular Rate : 63 BPM Atrial Rate : 63 BPM P-R Interval : 160 ms QRS Duration : 122 ms Q-T Interval : 428 ms QTC Calculation(Bezet) : 437 ms P [place] : 15 degrees R [place] : 24 degrees T [place] : 12 degrees Test Reason : Arrhythmia Location : 35 : G62 [id number] Overread By : TOPHER MADISON M.D. Edited By : TOPHER MADISON M.D. Referred By : , Acquired by : ELTON CLAY Normal [facility] Magnesiumon 01-26-2019 Magnesium mass conc 2.0 mg/dL Normal 1.7-2.3 [facility] Comment on above: Performed By: #### C BCDIF, CMP #### [facility] [address] [place], [place] [address] NUTRITIONon 01-26-2019 NUTRITION HNO ID: [id number] Author: Madonna Ortega Service: NST-Nutrition Support Team Author Type: Registered Dietitian Type: Nutrition Filed: 01/26/2019 4:13 PM Note Text: NUTRITION SUPPORT TEAM PROGRESS NOTE SERVICE DATE: 01/26/2019 SERVICE TIME: 11:30AM RECOMMENDED DIAGNOSIS: MILD PROTEIN-CALORIE MALNUTRITION per Registered Dietitian on 01/25 NUTRITION CARE PLAN Intervention: Parenteral nutrition - recommend continuing with current PPN 2000 milliliters, 83 milliliters/hour 105 grams 10% amino acids 440 dextrose calories Goal: Parenteral nutrition intake provides >90% estimated nutritional requirements Discharge Nutrition Recommendations: To be determined Per HPI: 33 year old male with acute epiglottitis, S/P trach 01/22, acute respiratory failure, SHARON, agitation ? Relevant medical/surgical history: polysubstance abuse (methamphetamines, opioids - on methadone, alcohol) HTN obesity ? Interval History: PPN was initiated last night Hyperchloremic, hyperphosphatemic. PPN contains no added chloride. Amino acids are providing phosphorus; unable to use phosphate-free amino acids due to shortage No diet orders placed this encounter PPN - providing 860 calories, 105 grams protein Lines and Drains: Peripheral 01/25/19 0337 Short Right Arm 18 Gauge (Active) Peripheral 01/25/19 0337 Short Right Forearm 20 Gauge (Active) Peripheral 01/25/19 0338 Short Right Hand 22 Gauge (Active) Height: 198.1 cm (6' 6) Admission Weight: (!) 164.8 kg (363 lb 5.1 oz) Current Weight: (!) 163.5 kg (360 lb 7.2 oz) Body mass index is 41.73 kg/m?. class 3 obesity Weight history: unknown [place] Body Weight: 97.5kg Dosing Weight: 163.8 kg Resting Metabolic Rate: 2722 Estimated kilocalorie needs: 1802 - 2293 kilocalories determined by 11 - 14 kcal/kg Estimated protein needs: 185 - 244 grams determined by 2.0 - 2.5 g/kg [place] weight Recent Labs 01/26/19 0123 GLUC 93 BUN 20 CREAT 1.43* NA 142 K 4.2 CHLOR 109* CO2 22 ALB 3.2* P 5.2* HB 12.7* HCT 35.7* WBC 8.30 MG 2.0 MNT Billing Type: Re-assess/15 min 2 units SIGNATURE: Li Ortega, MS RD LD PATIENT NAME: Pancho Lopez DATE: January 26, 2019 TIME: 4:06 PM PAGER: [phone] Normal [facility] PROGRESSon 01-26-2019 Protein mass conc HNO ID: [id number] Author: Riley Leach Service: Pulmonary Disease Author Type: Physician Type: Progress Notes Filed: 01/26/2019 5:34 PM Note Text: [facility] STAFF PHYSICIAN NOTE OF PERSONAL INVOLVEMENT IN CARE I have reviewed the clinical information obtained and documented by the resident's note and I personally participated in the casiano components. I have discussed the case and management of the patient's care. The following comments revise or confirm relevant casiano components of the note. Pancho Lopez is a 33 year old male with PMH polysubstance use who presented to the ICU with epiglottitis. ? Active Problems: - Epiglottitis necessitating tracheostomy. - Obstructive lung disease- on vent, there is prolonged expiratory phase. Improved w/ albuterol. Pt is smoker. No physical obstructions on bronch over weekend per report from Dr. Choi. No significant secretions today. - polysubstance use. - Agitation - improved. - SHARON - improving. ? ? Plan: - Continue shceduled and prn haldol for agitation. - Convert fentanyl to scheduled longer acting formulation. - Continue vanc/zosyn for epiglottitis. - Will repeat CT chest w/ contrast this week when SHARON improves more. - COntinue on trach collar as tolerated. - PPN for nutrition. This patient has a high probability of sudden, clinically significant deterioration, which requires the highest level of physician preparedness to intervene urgently. I managed/supervised life or organ supporting interventions that required frequent physician assessment. I devoted my full attention to the direct care of this patient for the amount of time indicated below. Time I spent with family or surrogate(s) is included only if the patient was incapable of providing the necessary information or participating in medical decision making. Time devoted to teaching and to any procedures I billed separately is not included. Critical Care Documentation: The patient has the following organ/system impairment(s): Respiratory failure (Acute, with Hypoxemia) Time spent providing critical care services: 35 minutes. The time excludes any associate procedures which will be documented and billed separately. SIGNATURE:Riley Leach MD [facility] PAGER: [phone] DATE of SERVICE: January 26, 2019 TIME of SERVICE: 5:32 PM Normal [facility] Phosphoruson 01-26-2019 Phosphate mass conc 5.2 mg/dL High 2.7-4.8 [facility] Comment on above: Result Comment: Resu lt rechecked. Performed By: #### C BCDIF, CMP #### [facility] [address] [place], [place] [address] Sodium,Urine,Randomon 2018 Sodium molar conc (U) 143 mmol/L Normal 14-216 [facility] Comment on above: Performed By: #### U AWMIC, UCRR, UNAR ####[facility] [id number] [place], [place] [phone] THERAPY NTon 01-26-2019 THERAPY NT HNO ID: [id number] Author: Milli (Ot/L) [place] Service: Occupational Therapy Author Type: Occupational Therapist Type: Therapy (PT/OT/Speech/Resp) Filed: 01/26/2019 11:08 AM Note Text: Occupational Therapy Evaluation SERVICE DATE: 01/26/2019 SERVICE TIME: 1007 to 1045 ROOM: [place] [address] Recommended Discharge Disposition: Unable to determine due to critical care status Anticipated Discharge Needs: Undetermined Recommended Discharge Equipment: To Be Determined OT Recommendations to Nursing: Encourage patient participation with in-bed ADL?s OT 6 Clicks Score: 18 Precautions/Activity Restrictions: Lines/Tubes/Drains ASSESSMENT: Patient presents with impaired Cognitive/Perceptual, Functional Mobility and Activity Tolerance and ADLs, impacting the ability to function without assistance from caregivers. Patient requires Max assist with LB ADLs including Minimal: Verbal for safety (due to lack of cooperation). Pt also requires monitoring of vital signs due to fluctuations with activity and instructions/ education regarding safe activity dosing. Pt requires skilled therapy to address current functional limitations, identify coping skills to progress through current impairments as well as to increase independence with ADLs within safe limits. Eval limited by cooperation, desire, and motivation. Majority of session spent educating pt and family on the importance of OOB activity and use of communication board (pt's family unable to read pt's writing or read his lips). Patient Disposition at Start of Session: Supine in Bed;Call [place] in Reach;Family Present Patient Disposition at End of Session: Supine in Bed;Call [place] in Reach;Family Present Tolerance Limited By Cooperation Occupational Therapy Problem List: Cognitive Deficit;Education Deficit;Safety Deficits;Impaired Self Care;Decreased Activity Tolerance;Functional Mobility Impairment;Balance Impaired Patient /Caregiver Goals: Go Home Goals for Plan of Care: Lower Body Bathing with: Independent Lower Body Dressing with: Independent Toilet Hygiene with: Independent Tolerate (minutes of functional activity): 60 Functional Activity with: Independent Demonstrate Positive Coping Strategies with: Independent Demonstrate Competence With Education with: Independent Transfer: IND Progress Toward Goals: Progressing as expected Rehab Potential: Good PLAN: Treatment Frequency (times per week): 2 Current admission Treatment Interventions: Education;Self Care / Home Management;Energy Conservation Training;Strengthening;Func tional Mobility Training;Cognitive Training Plan of Care developed with: Patient TREATMENT INTERVENTIONS: Therapy Diagnosis: Decreased activities of daily living (ADL) Interventions Provided: Evaluation;Therapeutic Activity (71429);Cognitive Training (03815 or G0515) $ Evaluation-Moderate (18473) Billed Units: 1 unit Therapeutic Activity (81392) Treatment Minutes: 8 1 unit Skilled Intervention(s): Educated patient in role of OT, plan of care, and discharge recommendations. Provided intervention for line management and skilled set up of room in prep for transfer to chair. Instructed pt in LB dressing (donning socks) prior to EOB, pt refused to complete, stating he cannot do it. Pt then refused all functional mobility. Cognitive Training (G0515) Treatment Minutes: 15 $ Cognitive Training (G0515) Billed Units: 1 unit Skilled Intervention(s): Educated pt on use of communication board to reduce frustration and increase feelings of control. Pt expressing depressed feelings and lack of motivation. Provided increased encouragement to participate in therapy. Educated on breathing techniques, positive thinking, importance of engaging in activity to keep mind occupied. Patient was educated on the impact of physical activity and participation in self care tasks on cognitive maintenance and mental/emotional well being. Therapeutic use of self and reflective listening to reduce pt anxiety Total Timed Code Treatment Minutes: 23 Total Treatment Time (minutes): 38 SUBJECTIVE: Current Hospital Course: Chart reviewed; Pancho Lopez is a 33 year old male with PMHx significant for polysubstance abuse, tobacco abuse, EtOH abuse, HTN, obesity who presented to the hospital on 01/23/2019 transferred from [facility] for acute epiglottitis. Patient underwent tracheostomy 01/22/19 for airway protection. ENT was consulted for evaluation. Flexible laryngoscopy demonstrated markedly edematous and erythematous epiglottis with purulent exudate, unable to visualize glottis. 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 OBJECTIVE: Cognition/Communication Deficits Communication Deficits: (restricted response- TC; difficulty reading lips) Responsiveness: Agitated Follows Commands: 1-step Commands Attention Deficits: Distractible Cognitive Clinical Tests and Screens: (Pt refused formal assessment) CURRENT FUNCTIONAL STATUS: Current Activities of Daily Living Assist Level Feeding Set Up Grooming Set Up Bathing Upper Body Minimal Assistance Bathing Lower Body Maximal Assistance Dressing Upper Body Set Up Dressing Lower Body Maximal Assistance Toileting Maximal Assistance Functional Mobility Assist Level Rolling (Pt refused) Supine to Sit Sit to Supine Scooting Sit to Stand Stand to Sit Bed to Chair Toilet/Commode Functional Mobility Please see discipline specific clinical documentation flowsheet for complete details for this therapy evaluation/treatment. SIGNATURE: Milli Warner OT/L PATIENT NAME: Pancho Lopez DATE: January 26, 2019 TIME: 10:56 AM Normal [facility] Urinalysis with Microscopico n 01-26-2019 Bilirubin, Urine Negative Normal Negative [facility] Comment on above: Performed By: #### U MAGALY WYNNE, UNAR ####[facility] [address] [place], [place] [phone] Clarity Nom (U) Clear Normal Clear [facility] Comment on above: Performed By: #### U AWCARLY WAYNERR, UNAR ####[facility] [address]level[address] [phone] Color Nom (U) Yellow Normal Yellow [facility] Comment on above: Performed By: #### U MAGALY WYNNE, UNAR ####[facility] [address]CId[address], [place] [phone] Comments SEE COMMENT Normal [facility] Comment on above: Result Comment: N/A Performed By: #### U MAGALY WYNNE, UNAR ####[facility] [address]CJul[address] [place] [phone] Glucose Ql (U) Negative Normal Negative [facility] Comment on above: Performed By: #### U MAGALY WYNNE, UNAR ####[facility] [place] [phone] Hemoglobin/Blood,Ur Negative Normal Negative [facility] Comment on above: Performed By: #### U MAGALY WYNNE, UNAR ####[facility] [place] [phone] Ketones Ql (U) Negative Normal Negative [facility] Comment on above: Performed By: #### U MAGALY WYNNE, UNAR ####[facility] [place] [phone] Leukest Negative Normal Negative [facility] Comment on above: Performed By: #### U MAGALY WYNNE, UNAR ####[facility] [address]CJul[address] [place] [phone] Nitrite Ql (U) Negative Normal Negative [facility] Comment on above: Performed By: #### U CARLY WYNNERR, UNAR ####[facility] [address]CJul[address] [place] [phone] pH (Bld) 6.0 Normal 4.5-8.0 [facility] Comment on above: Performed By: #### U CARLY WYNNERR, UNAR ####[facility] [address] AveClevelandWoodworth, [place] [phone] Protein mass conc (U) Negative Normal Negative [facility] Comment on above: Performed By: #### U AWMIC, UCRR, UNAR ####[facility] [address] AveCleveland[address]worth, [place] [phone] RBC #/vol (U) 3-5 Critically abnormal 0-3 [facility] Comment on above: Performed By: #### U AWMIC, UCRR, UNAR ####[facility] [address]CJul[address] [place] [phone] Specific [place], Ur 1.016 Normal 1.005-1.030 [facility] Comment on above: Performed By: #### U AWMIC, UCRR, UNAR ####[facility] [address] AveClevelMelrose, [place] [phone] Urine Rosana Comment SEE COMMENT Normal [facility] Comment on above: Result Comment: N/A Performed By: #### U AWMIC, UCRR, UNAR ####[facility] [address] AveClevelJeremy [place] [phone] Urobilinogen Qn (U) Normal Normal Normal [facility] Comment on above: Performed By: #### U AWMIC, UCRR, UNAR ####[facility] [address]ClevelJerem[place] [phone] WBC #/vol (Bld) 0-5 Normal 0-5 [facility] Comment on above: Performed By: #### U AWMIC, UCRR, UNAR ####[facility] [address] AveCIdaville, [place] [phone] CASE MGT INIT ASAELon 2018 CASE MGT INIT ASAEL HNO ID: [id number] Author: Aníbal GivensRn) COLETTE Flores Service: Care Management Author Type: Registered Nurse Type: Care Mgt Initial Assessment Filed: 01/26/2019 8:56 AM Note Text: CARE MANAGEMENT: ASSESSMENT AND DISCHARGE PLAN SERVICE DATE: 01/25/2019 SERVICE TIME: 10:01 AM PRIMARY CARE PHYSICIAN: Luis Bender DO ADMISSION STATUS: Inpatient Needs Prior to Discharge: To Be Determined 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 FUNCTIONAL AND COGNITIVE/BEHAVIORAL PRIOR TO ADMISSION ASSESSMENT: Unable to complete assessment at this time due to Trach , MV Has the Patient Been in a Detention Facility in the Past 30 days? No SOCIAL: Living Arrangement: Home Lives With: Family Financial Resources: N/A Primary Contact: Extended Emergency Contact Information Primary Emergency Contact: Ben Lopez Address: [address] [place] [id number] Work Phone: NA Relation: Father Supportive: Yes Other Important Patient Contacts: None Caregiver Assessment: Caregiver is ready, willing and able to meet the patient's needs as recommended by the inter-professional team? No Caregiver Needed Patient's transition needs and plan for meeting these needs: TBD Does the patient have an acute stroke diagnosis, or has the patient had a stroke during this admission? No Medicaiton Adherence: Patient is unable to complete at this time due to new Tracheostomy. Are you interested in bedside delivery of your medications? Yes Food Concerns: In the Last Month, Have You had Trouble Getting Food? No trouble getting food During the Last Month, Have You Worried Whether Your Food Would Run Out Before You Had Enough Money to Buy More? No Is the Patient Psychosocially Complex? Yes, refer to Social Work. ASSESSMENT AND PLAN: Medical Needs: Respiratory Insufficiency - Oxygen Psychosocial Needs: None FREEDOM OF CHOICE EXPLAINED: N/A POTENTIAL TRANSITION PLANS To Be Determined 33 yo with Hx of polysubstance abuse,HTN, Obesity who presents to [facility] from OSH with concern for upper airway obstruction. Patient underwent tracheostomy 01/22 for airway protection. Patient currently on MV with light sedation. CM to follow medical course and will plan discharge accordingly. SIGNATURE: Aníbal Flores RN PATIENT NAME: Pancho Lopez DATE: January 25, 2019 TIME: 10:01 AM PAGER/CONTACT #: [phone] Normal [facility] CBC and Differentialon 01-25 Abs Baso 0.04 k/uL Normal <0.11 [facility] Comment on above: Performed By: #### C BCDIF, CMP #### [place] [phone] [place] [phone] Abs [place] 0.76 k/uL Normal <0.87 [facility] Comment on above: Performed By: #### C BCDIF, CMP #### [place] [address] Abs Neut 4.99 k/uL Normal 1.45-7.50 [facility] Comment on above: Performed By: #### C BCDIF, CMP #### [place] [phone] Absolute nRBC <0.01 Normal <0.01 [facility] Comment on above: Performed By: #### C BCDIF, CMP #### [place] [phone] Basophils/100 WBC (Bld) 0.5 % Normal [facility] Comment on above: Performed By: #### C BCDIF, CMP #### [place] [phone] DTYPE Auto Diff Normal [facility] Comment on above: Performed By: #### C BCDIF, CMP #### [place] [phone] Eosinophils #/vol (Bld) 0.34 10*3/uL Normal <0.46 [facility] Comment on above: Performed By: #### C BCDIF, CMP #### [place] [phone] Eosinophils/100 WBC (Bld) 4.3 % Normal [facility] Comment on above: Performed By: #### C BCDIF, CMP #### [address] [address] Erythrocyte distribution width Ratio (RBC) 12.3 % Normal 11.5-15.0 [facility] Comment on above: Performed By: #### C BCDIF, CMP #### [place] [phone] Hematocrit Volume Fraction (Bld) 35.5 % Low 39.0-51.0 [facility] Comment on above: Performed By: #### C BCDIF, CMP #### [place] [address] Hemoglobin mass conc (Bld) 11.7 g/dL Low 13.0-17.0 [facility] Comment on above: Performed By: #### C BCDIF, CMP #### [place] [phone] Lymphocytes #/vol (Bld) 1.70 10*3/uL Normal 1.00-4.00 [facility] Comment on above: Performed By: #### C BCDIF, CMP #### [place] [phone] Lymphocytes/100 WBC (Bld) 21.7 % Normal [facility] Comment on above: Performed By: #### C BCDIF, CMP #### [place] [address] MCH Entitic mass (RBC) 29.2 pG Normal 26.0-34.0 [facility] Comment on above: Performed By: #### C BCDIF, CMP #### [place] [phone] MCHC mass conc (RBC) 33.0 g/dL Normal 30.5-36.0 [facility] Comment on above: Performed By: #### C BCDIF, CMP #### [place] [phone] [place] [address] MCV Entitic volume (RBC) 88.5 fL Normal 80.0-100.0 [facility] Comment on above: Performed By: #### C BCDIF, CMP #### [place] [phone] Monocytes/100 WBC (Bld) 9.7 % Normal [facility] Comment on above: Performed By: #### C BCDIF, CMP #### [place] [phone] Neutrophils/100 WBC (Bld) 63.8 % Normal [facility] Comment on above: Performed By: #### C BCDIF, CMP #### [place] [phone] NRBCs 0.0 /100 WBC Normal 0 [facility] Comment on above: Performed By: #### C BCDIF, CMP #### [place] [phone] Platelet mean volume Entitic volume (Bld) 11.9 fL Normal 9.0-12.7 [facility] Comment on above: Performed By: #### C BCDIF, CMP #### [place] [phone] Platelets #/vol (Bld) 182 10*3/uL Normal 150-400 [facility] Comment on above: Performed By: #### C BCDIF, CMP #### [place] [phone] RBC #/vol (Bld) 4.01 10*6/uL Low 4.20-6.00 [facility] Comment on above: Performed By: #### C BCDIF, CMP #### [facility] [address] [place], [place] [address] WBC #/vol (Bld) 7.83 10*3/uL Normal 3.70-11.00 [facility] Comment on above: Performed By: #### C BCDIF, CMP #### [facility] [address] [place], [place] [address] CONSULTon 01-25-2019 CONSULT HNO ID: [id number] Author: Claude Saravia Service: NST-Nutrition Support Team Author Type: Physician Type: Consults Filed: 01/26/2019 10:54 AM Note Text: NUTRITION SUPPORT TEAM TOPIC: NUTRITION SUPPORT TEAM CONSULT FOR TPN PATIENT NAME: Pancho Lopez DATE OF : 1985 DATE: 01/25/2019 [facility] STAFF PHYSICIAN NOTE OF PERSONAL INVOLVEMENT IN CARE I have reviewed the history and physical examination obtained and documented by the Nutrition Clinician and I personally took a history, performed a physical examination, and participated in the casiano components. I have discussed the case and management of the patient's care. The following comments revise or confirm relevant casaino components of the note. ASSESSMENT: 1. On TPN 2. Mild Malnutrition 3. epiglottitis 4. Hyperglycemia PLAN: PPN: Approved Agree with recommendations as outline by clinician below. Labs were reviewed and TPN orders written: start PPN Our Service will follow. CC: Asked by Dr Choi to see this patient for possible use of Parenteral Nutrition HPI: 33 year old male with acute epiglottitis, S/P trach 01/22, acute respiratory failure, SHARON, agitation, without enteral route-requested for TPN at this time. I have reviewed the PMH, Social, FH and ROS as recorded below, and I have no changes or additions. PAST MEDICAL HISTORY Diagnosis Date - Alcohol abuse - HTN (hypertension) - Obesity (BMI 30-39.9) - Opioid abuse (HCC) on methadone - Polysubstance abuse (HCC) 01/23/2019 Methamphetamines, Opioids FAMILY HISTORY Problem Relation Age of Onset - Hypertension Mother - Diabetes Mother - Heart disease Mother - Hypertension Father - Diabetes Father - Heart disease Father REVIEW OF SYSTEMS (could not be completed due to patient currently with trach). PHYSICAL EXAMINATION: BP 139/67 Pulse 67 Temp 37.1 ?C (98.8 ?F) (Axillary) Resp 19 Ht 6' 6 (1.981 m) Wt (!) 163.5 kg (360 lb 7.2 oz) SpO2 99% BMI 41.65 kg/m? General appearance: no acute distrss Skin: Skin color, texture, turgor normal, no suspicious rashes or lesions Head: Normocephalic, no masses, lesions, tenderness or abnormalities Eyes: anicteric sclera Ears: Not examined Nose/Sinuses: Not examined Oropharynx:deferred Neck: tracheostomy Back: not examined Lungs: CTAB Heart: Not examined Abdomen: soft, non-distended Extremities: no LE edema Musculoskeletal: deferred Peripheral pulses: Normal Neuro: Deferred Venous Access Line:Peripheral IV line Claude Saravia MD Pager Number: [phone] January 26, 2019 Consult note is not complete until Authenticated by the responsible NST Staff physician. NUTRITION CLINICIAN ASSESSMENT: 1. 33 year old male with acute epiglottitis, S/P trach 01/22, acute respiratory failure, SHARON, agitation ? 2. Nutritional status: In the context of Acute Illness or Injury based on: Insufficient Energy Intake: Less than or equal to 50% for greater than or equal to 5 days RECOMMEND DIAGNOSIS: MILD PROTEIN-CALORIE MALNUTRITION [place] Body Weight: 97.5kg Dosing Weight: 163.8 kg Estimated kilocalorie needs: 1802 - 2293 kilocalories determined by 11 - 14 kcal/kg Estimated protein needs: 185 - 244 grams determined by 2.0 - 2.5 g/kg [place] weight RECOMMENDATIONS: Parenteral nutrition appropriate due to: inability to place feeding tube; start tonight. Case discussed with staff: approved for parenteral nutrition -------- Asked by Dr. Choi to see patient for parenteral nutrition. History of present illness: Pancho Lopez is a 33 year old male with acute epiglottitis, S/P trach 01/22 . Past Medical History: PAST MEDICAL HISTORY Diagnosis Date - Alcohol abuse - HTN (hypertension) - Obesity (BMI 30-39.9) - Opioid abuse (HCC) on methadone - Polysubstance abuse (HCC) 01/23/2019 Methamphetamines, Opioids Past Surgical History: PAST SURGICAL HISTORY Procedure Laterality Date - CHOLECYSTECTOMY - TONSILLECTOMY HX Social History: Social History Socioeconomic History Marital status: Single Spouse name: Not on file Number of children: Not on file Years of education: Not on file Highest education level: Not on file Social Needs Financial resource strain: Not on file Food insecurity - worry: Not on file Food insecurity - inability: Not on file Transportation needs - medical: Not on file Transportation needs - non-medical: Not on file Occupational History Not on file Tobacco Use Smoking status: Current Every Day Smoker Types: Cigarettes Smokeless tobacco: Never Used Substance and Sexual Activity Alcohol use: Yes Drug use: Yes Types: Amphetamines, Narcotics Sexual activity: Not on file Other Topics Concerns: Not on file Social History Narrative Not on file Family History: FAMILY HISTORY Problem Relation Age of Onset - Hypertension Mother - Diabetes Mother - Heart disease Mother - Hypertension Father - Diabetes Father - Heart disease Father GI Symptoms: unable to determine at this time Pain: Is the patient having any pain that is interfering with oral/enteral intake? 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 - class 3 obesity Weight history: unknown PHYSICAL EXAMINATION General Appearance: well nourished Skin: skin with lesions Subcutaneous Fat Loss: Orbital: No fat loss Triceps: No fat loss Mid-axillary at the iliac crest: No fat loss Muscle Loss Locations: Temporalis: No muscle loss Pectoralis: No muscle loss Deltoids: No muscle loss Interosseous: No muscle loss Latissimus dorsi, trapezius: Unable to determine at this time Quadriceps: No muscle loss Gastrocnemius: No muscle loss Ascites: No Edema: No GI / Abdomen: 1. Appearance: distended 2.1. Surgical scars: none 2.2. Stoma(s): None 2.3. Fistulas: None 2.4. Tubes: None 2.5. Drains: None Functional status: Unable to determine at this time Potential Signs of Inflammation: hypoalbuminemia and epiglottitis Potential micronutrient deficiency revealed in Unable to determine at this time Vitals: Temperature Max in 24 hours: Temp (24hrs), Av.7 ?C (98 ?F), Min:36.3 ?C (97.3 ?F), Max:37.2 ?C (99 ?F) Current Vital Signs: BP 125/74 Pulse (!) 45 Temp 36.3 ?C (97.3 ?F) (Axillary) Resp 16 Ht 198.1 cm (6' 6) Wt (!) 163.8 kg (361 lb 1.8 oz) SpO2 (!) 84% BMI 41.73 kg/m? Labs: Recent Labs 01/25/19 0141 WBC 7.83 HB 11.7* HCT 35.5* PLT 182 Recent Labs 01/25/19 0141 GLUC 90 BUN 19 CREAT 1.29* NA 147* K 3.1* CHLOR 112* CO2 20* TPROT 5.7* ALB 2.8* CA 7.6* ALKPHOS 62 TBILI 0.3 AST 25 ALT 32 Recent Labs 01/25/19 0141 MG 1.9 Accuchecks: Glucose, Point of Care (mg/dL) Date Value 01/25/2019 75 01/25/2019 93 01/25/2019 92 01/24/2019 95 Glucose, Point of Care (mg/dL) Date Value Pili Ortega, MS, RD, LD Pager #[phone] Normal [facility] CONSULT HNO ID: [id number] Author: Gerard Back Service: Otolaryngology Author Type: Physician Type: Consults Filed: 01/26/2019 7:35 AM Note Text: OTOLARYNGOLOGY CONSULT NOTE Patient: Pancho Lopez : 1985 Date of Service: January 24, 2019 ASSESSMENT AND PLAN: Pancho Lopez is a 33 year old male with PMHx significant for polysubstance abuse, tobacco abuse, EtOH abuse, HTN, obesity who presented to the hospital on 01/23/2019 transferred from [facility] for acute epiglottitis. Patient underwent tracheostomy 01/22/19 for airway protection. ENT was consulted for evaluation. Flexible laryngoscopy demonstrated markedly edematous and erythematous epiglottis with purulent exudate, unable to visualize glottis. - Continue IV antibiotics for epiglottitis -- would recommend broadening to Vancomycin/Zosyn - Will repeat scope exam to monitor for improvement - No immediate plans for decannulation - Will plan to cut sutures POD 5-7 and downsize to cuffless trach - Remainder of care per primary team - Please page ENT with any questions or concerns - NOTE: Consult dictation is not finalized until signed by Staff physician These findings and recommendations were discussed with Senior Resident, Greg Tran - - - - - - - - - - - - - - - - - - - - - - - - - - - - - - - - - - - - - - - - - - - - - - - HPI: This is a 33 year old male patient with PMHx of polysubstance abuse, tobacco abuse, EtOH abuse, HTN, obesity who presented to the hospital on 01/23/2019 transferred from [facility] for acute epiglottitis. He initially presented to [facility] 01/21/19 with sore throat, and was treated empirically for strep throat. He was discharged from ED with antibiotics and steroids. He returned later that day with worsening throat pain and difficulty breathing. Labs significant for WBC 31k and lactate 2.5. Per medical records, patient was tripoding and the decision was made to intubate. They were unable to pass ETT but were able to place an LMA with adequate ventilation. 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 He was reportedly agitated at [place] and requested transfer to another facility. On arrival to [facility] he has been intermittently agitated with trach, stating that he is unable to breathe, although he has been maintaining his sats. While sedated, he is on minimal ventilator settings, and there have been no respiratory concerns. Patient currently sedated - history obtained from chart review, primary team and bedside RN. PAST MEDICAL HISTORY: PAST MEDICAL HISTORY Diagnosis Date - Alcohol abuse - HTN (hypertension) - Obesity (BMI 30-39.9) - Opioid abuse (HCC) on methadone - Polysubstance abuse (HCC) 01/23/2019 Methamphetamines, Opioids PAST SURGICAL HISTORY: PAST SURGICAL HISTORY Procedure Laterality Date - CHOLECYSTECTOMY - TONSILLECTOMY HX FAMILY HISTORY: FAMILY HISTORY Problem Relation Age of Onset - Hypertension Mother - Diabetes Mother - Heart disease Mother - Hypertension Father - Diabetes Father - Heart disease Father SOCIAL HISTORY: Social History Socioeconomic History Marital status: Single Spouse name: Not on file Number of children: Not on file Years of education: Not on file Highest education level: Not on file Social Needs Financial resource strain: Not on file Food insecurity - worry: Not on file Food insecurity - inability: Not on file Transportation needs - medical: Not on file Transportation needs - non-medical: Not on file Occupational History Not on file Tobacco Use Smoking status: Current Every Day Smoker Types: Cigarettes Smokeless tobacco: Never Used Substance and Sexual Activity Alcohol use: Yes Drug use: Yes Types: Amphetamines, Narcotics Sexual activity: Not on file Other Topics Concerns: Not on file Social History Narrative Not on file COMPLETE REVIEW OF SYSTEMS: Negative ROS except as otherwise indicated in the history of present illness section. MEDICATIONS: No current facility-administered medications on file prior to encounter. Current Outpatient Medications on File Prior to Encounter: acetaminophen (TYLENOL) 325 mg tablet Take 650 mg by mouth. amLODIPine (NORVASC) 5 mg tablet Take 5 mg by mouth. lansoprazole (PREVACID) 30 mg capsule Take 30 mg by mouth. Current Facility-Administered Medications: D10-0.45% NaCl 1,000 mL infusion INTRAVENOUS CONTINUOUS Bennie (Res) Donohue Last Rate: 75 mL/hr at 01/24/192023 mupirocin 2% 0.5 g nasal ointment (BACTROBAN) 0.5 g NASAL BID Renae Drew (Pharmacist) 0.5 g at 01/24/192153 dexmedetomidine 400 mcg in NaCl 0.9% 100 mL (PRECEDEX) 0.2-0.7 mcg/kg/hr INTRAVENOUS CONTINUOUS Stephanie (Res) Reznicek Stopped at 01/24/19 1100 fentaNYL 20 mcg/mL iv infusion in NaCl 0.9% 100 mL 25-250 mcg/hr INTRAVENOUS CONTINUOUS Stephanie (Res) Reznicek Last Rate: 5 mL/hr at 01/24/191999 100 mcg/hr at 01/24/191999 potassium chloride ER 40 mEq tab(s) (K-DUR, KLOR-CON) 40 mEq ORAL/FEEDING TUBE q 2 H PRN Bennie (Res) Donohue magnesium sulfate in water 4-6 g in sterile water 50 ml 4-6 g INTRAVENOUS PRN Bennie (Res) Donohue sodium glycerophosphate 45 mmol in NaCl 0.9% 250 mL (GLYCOPHOS) 45 mmol INTRAVENOUS PRN Bennie (Res) Donohue NaCl 0.9% 3-5 mL 3-5 mL INTRAVENOUS q 12 H Bennie (Res) Donohue 3 mL at 01/24/192153 insulin regular human injection (short acting) (NovoLIN R,HumuLIN R) SUBCUTANEOUS q 6 H Bennie (Res) Donohue insulin regular 100 units in NaCl 0.9% 100 mL iv infusion - ICU NOMOGRAM 0.5-30 Units/hr INTRAVENOUS CONTINUOUS Bennie (Res) Donohue insulin regular human iv bolus 2-10 Units 2-10 Units INTRAVENOUS PRN Bennie (Res) Donohue dextrose 50% in water 25-50 mL syringe 12.5-25 g INTRAVENOUS PRN Bennie (Res) Donohue 25 mL at 01/23/19 2331 dextrose 40 % 15 g 15 g ORAL PRN Bennie (Res) Donohue glucagon 1 mg injection (GLUCAGEN) 1 mg SUBCUTANEOUS PRN Bennie (Res) Donohue fentaNYL 50 mcg/mL 50-100 mcg injection (SUBLIMAZE) 50-100 mcg INTRAVENOUS q 15 MIN PRN Bennie (Res) Donohue 100 mcg at 01/24/19 1225 propofol iv bolus 20 mg (DIPRIVAN) 20 mg INTRAVENOUS q 30 MIN PRN Bennie (Res) Donohue 20 mg at 01/24/19 1511 propofol infusion (DIPRIVAN) 5-60 mcg/kg/min INTRAVENOUS CONTINUOUS Bennie (Res) Donohue Last Rate: 29.66 mL/hr at 01/24/192099 30 mcg/kg/min at 01/24/192099 Chlorhexidine Gluconate 0.12 % 15 mL (PERIDEX) 15 mL ORAL QID Bennie (Res) Donohue 15 mL at 01/24/192153 heparin 5,000 Units injection 5,000 Units SUBCUTANEOUS q 12 H Bennie (Res) Donohue 5,000 Units at 01/24/19 2154 ampicillin-sulbactam 3 g in NaCl 0.9% 100 mL MB+/ADD-[place] (UNASYN) 3 g INTRAVENOUS q 6 H Bennie (Res) Donohue Last Rate: 200 mL/hr at 01/24/19 1828 3 g at 01/24/19 1828 pantoprazole 40 mg injection (PROTONIX) 40 mg INTRAVENOUS DAILY (6 AM) Bennie (Res) Donohue 40 mg at 01/24/19 0532 ALLERGIES: ALLERGIES No Known Allergies PHYSICAL EXAM: 01/24/19 1900 01/24/19199901/24/19201401/24/19 2100 BP: 125/73 181/92 138/67 154/84 Pulse: (!) 52 88 64 64 Resp: 16 30 17 17 Temp: 36.9 ?C (98.5 ?F) TempSrc: Axillary SpO2: 100% 99% 90% 100% Weight: Height: PHYSICAL EXAM: Vitals - BP 154/84 Pulse 64 Temp 36.9 ?C (98.5 ?F) (Axillary) Resp 17 Ht 198.1 cm (6' 6) Wt (!) 167.9 kg (370 lb 2.4 oz) SpO2 100% BMI 42.78 kg/m? Constitutional - General Appearance: sedated, on mechanical ventilation Head AND Face - Overall: no obvious scars, lesions or masses Ear, Nose, Mouth AND Throat - Nasal exam: mucosa is pink, septum is midline, visible turbinates are normal on anterior rhinoscopy Oral Cavity and oropharynx: mucosa, hard and soft palates, tongue, tonsil area, posterior pharyngeal wall, lips and gums are without lesions Neck: appears symmetric, and on palpation is without masses. No fluctuance or crepitus. No tenderness to palpation DATA: Radiology: CT neck noncon 01/22/19 Mild prominence of the lingual tonsil. Thickened epiglottitis with gas noted. Normal bilateral vallecula and hypopharnyx. The pre-epiglottic and paraepiglottic adipose spaces are normal. Normal visualized bilateral piriform sinuses, aryepiglottic folds, vocal cords, and arytendoi-cricoid articulations. Normal subglottic trachea. Mild bilateral cervical adenopathy. ? Laboratory: CBC, Coags, BMP, Mg, Phos Recent Labs 01/24/19 1029 01/24/19 0302 01/23/19 2148 WBC -- 11.09* 11.77* HB -- 11.8* 12.1* HCT -- 36.3* 36.5* PLT -- 186 176 NA 141 146* 145* K 3.6* 3.9 3.8 CHLOR 108* 108* 110* CO2 22 25 25 BUN 24 28* 29* CREAT 1.57* 1.62* 1.57* GLUC 94 81 139* CA 8.4* 9.1 8.2* MG -- 2.2 -- P -- 3.6 -- Procedure: Flexible laryngoscopy After spraying the bilateral nose with 2% lidocaine/0.5% neosynephrine, the flexible scope was placed in a transnasal fashion through the right nare. The nasal passageways were normal with no signs of polyps or pus. There was mild inferior turbinate hypertrophy. No masses were visualized in the nasopharynx, oropharynx, hypopharynx including the pyriform sinuses. The base of tongue showed no gross lesions and prominent lingual tonsils. The epiglottis is markedly edematous with beefy erythema and purulent exudate. Unable to visualize glottis beyond the epiglottis. Procedure performed by Shalini Serra MD andd saved on the Clear Scope. SIGNATURE: Shalini Serra MD PAGER: [phone] (ENT Consult Pager) DATE of SERVICE: January 24, 2019 TIME of SERVICE: 10:22 PM I participated in the history and physical exam of Pancho Lopez. I discussed the management of Pancho Lopez with the resident. I reviewed the resident's note and agree with the documented findings and plan of care. Gerard Back MD [facility] CONSULT PROGon 01-25-2019 Protein mass conc HNO ID: [id number] Author: Shalini (Humberto Serra MD Service: Otolaryngology Author Type: Resident Type: Consult Progress Note Filed: 01/25/2019 7:00 PM Note Text: [facility] - HEAD AND NECK SURGERY CONSULT PROGRESS NOTE PAGE [phone] AFTER 1700 AND ON WEEKENDS Patient Name: Pancho Lopez Age: [age] year old Sex: male Date: January 25, 2019 Admission Date: 01/23/2019 Hospital Day: 2 ASSESSMENT/PLAN: Pancho Lopez is a 33 year old male with PMHx significant for polysubstance abuse, tobacco abuse, EtOH abuse, HTN, obesity who presented to the hospital on 01/23/2019 transferred from [place] for acute epiglottitis. Patient underwent tracheostomy 01/22/19 for airway protection. ENT was consulted for evaluation. Flexible laryngoscopy demonstrated markedly edematous and erythematous epiglottis with purulent exudate, unable to visualize glottis. - Continue IV antibiotics for epiglottitis -- would recommend broadening to Vancomycin/Zosyn - No indication for steroids for airway edema as patient has trach. Would also not be able to trend WBC to monitor infection with steroid induced leukocytosis. - Will repeat scope exam to monitor for improvement - No immediate plans for decannulation - Will plan to cut sutures POD 5-7 and downsize to cuffless trach - Remainder of care per primary team - Please page ENT with any questions or concerns SUBJECTIVE: Extremely agitated on exam Refused flexible laryngoscopy OBJECTIVE: Physical Examination: 01/25/19 1400 01/25/19 1500 01/25/19 1600 01/25/19 1700 BP: (!) 198/125 152/70 141/65 135/61 Pulse: (!) 141 99 91 60 Resp: (!) 34 11 10 16 Temp: 37.2 ?C (99 ?F) TempSrc: Axillary SpO2: 98% 97% 98% 97% Weight: Height: General: Agitated and uncooperative Airway: 8.[address], 4x anchoring sutures, soft collar. On ventilator. Neck: soft, symmetric. No fluctuance or crepitus. No tenderness on palpation bilaterally. Appropriately tender around tracheostomy. LABS: Blood: Recent Labs 01/25/19 0141 01/24/19 0302 01/23/19 2148 WBC 7.83 11.09* 11.77* HB 11.7* 11.8* 12.1* HCT 35.5* 36.3* 36.5* PLT 182 186 176 MCV 88.5 89.2 90.3 MCH 29.2 29.0 30.0 MCHC 33.0 32.5 33.2 RDWCV 12.3 13.0 13.0 MPV 11.9 11.8 11.8 NEUTP 63.8 69.0 70.5 LYMPHP 21.7 19.7 15.7 MONOP 9.7 9.6 12.1 EODINP 4.3 1.3 1.4 BASOP 0.5 0.4 0.3 ABSNEUT 4.99 7.67* 8.31* ABSMONO 0.76 1.06* 1.42* ABSEOSIN 0.34 0.14 0.16 ABSBASO 0.04 0.04 0.03 Recent Labs 01/25/19 0141 01/24/19 1029 01/24/19 0302 NA 147* 141 146* K 3.1* 3.6* 3.9 CHLOR 112* 108* 108* CO2 20* 22 25 BUN 19 24 28* CREAT 1.29* 1.57* 1.62* GLUC 90 94 81 CA 7.6* 8.4* 9.1 MG 1.9 -- 2.2 P 2.7 -- 3.6 No results for input(s): PTSEC, INR, APTT in the last 72 hours. Shalini Serra MD Otolaryngology, PGY-2 Personal Pager: [phone] For questions after hours or on weekends please page [phone] Normal [facility] conc HNO ID: [id number] Author: Feliciano Nagel (Pharmacist) Service: Pharmacy Author Type: Pharmacist Type: Consult Progress Note Filed: 01/25/2019 1:41 PM Note Text: PHARMACY VANCOMYCIN DOSING NOTE Patient Name:.Pancho Lopez Admission Date: 01/23/2019 Date of Consult: 01/25/2019 Time of Consult: 1:41 PM Indication: Source Unknown; empiric Goal Range: 10-20 RECOMMENDATIONS/PLAN: Pharmacy consulted for vancomycin dosing for Pancho Lopez, a 33 year old, male who is being treated with vancomycin for empiric therapy - source unknown The primary service has discontinued vancomycin therapy. Pharmacy Vancomycin Dosing Service will sign off. Thank you for allowing us to participate in this patient's care. Please contact pharmacy if questions. Feliciano Nagel, Pharmacist Normal [facility] Protein [facility] conc HNO ID: [id number] Author: Gabriele Tavarez (Pharmacist) Service: Pharmacy Author Type: Pharmacist Type: Consult Progress Note Filed: 01/25/2019 12:57 AM Note Text: PHARMACY VANCOMYCIN DOSING NOTE Patient Name: Pancho Lopez Admission Date: 01/23/2019 Date of Consult: 01/25/2019 Time of Consult: 12:52 AM Indication: Source Unknown; empiric Goal Range: 10-20 mcg/mL RECOMMENDATIONS/PLAN: Pharmacy consulted for vancomycin dosing for Pancho Lopez, a 33 year old, male who is being treated with vancomycin for empiric therapy of epiglottitis. 1. Patient is currently ordered Vancomycin 1 g IV q8h. Today is day #1 of therapy. 2. No vancomycin level has been drawn for this dosing regimen. 3. Will adjust Vancomycin to a dose of 2 g to be more appropriate for his weight of 167.9 kg and will give just a one time dose now since patient is currently presenting with SHARON. 4. The next vancomycin level will be ordered for 01/26/19 unless clinically indicated sooner. (Pharmacy will order) We will follow patient renal function, vancomycin levels and doses with you during the course of therapy. Additional recommendations will appear in follow up notes. If you have any questions, please contact Flor Tavarez RPh at [phone]. Age: [age] year old Allergies: ALLERGIES No Known Allergies Last 3 Encounter Wt Readings: Date: Wt: 01/22/2019 167.9 kg (370 lb 2.4 oz) Last 1 Encounter Ht Readings: Date: Ht: 01/22/2019 198.1 cm (6' 6) CrCl: 116.6 mL/min Temp (24hrs), Av.1 ?C (98.8 ?F), Min:36.9 ?C (98.5 ?F), Max:37.3 ?C (99.1 ?F) - Current Temp: 36.9 ?C (98.5 ?F) Labs BUN (mg/dL) Date Value 01/24/2019 24 01/24/2019 28 (H) 01/23/2019 29 (H) Creatinine (mg/dL) Date Value 01/24/2019 1.57 (H) 01/24/2019 1.62 (H) 01/23/2019 1.57 (H) WBC (k/uL) Date Value 01/24/2019 11.09 (H) 01/23/2019 11.77 (H) Vancomycin Levels: No results found for: KANA Tavarez, Pharmacist Normal [facility] Comp Metabolic Panelon 01-25 Albumin mass conc 2.8 g/dL Low 3.9-4.9 [facility] Comment on above: Performed By: #### C BCDIF, CMP #### [facility] [address] [address] ALP enzyme act/vol 62 U/L Normal 38-113 [facility] Comment on above: Performed By: #### C BCDIF, CMP #### [place] [id number] [place] [address] ALT enzyme act/vol 32 U/L Normal 10-54 [facility] Comment on above: Performed By: #### C BCDIF, CMP #### [place] [address] [place] [address] Anion gap molar conc 15 mmol/L Normal 9-18 [facility] Comment on above: Performed By: #### C BCDIF, CMP #### [place] [address] [place] [phone] AST enzyme act/vol 25 U/L Normal 14-40 [facility] Comment on above: Performed By: #### C BCDIF, CMP #### [facility] [address] [phone] Bilirubin mass conc 0.3 mg/dL Normal 0.2-1.3 [facility] Comment on above: Performed By: #### C BCDIF, CMP #### [facility] [address] [address] Calcium mass conc 7.6 mg/dL Low 8.5-10.2 [facility] Comment on above: Performed By: #### C BCDIF, CMP #### [place] [address] [place] [id number] [phone] Chloride molar conc 112 mmol/L High 97-105 [facility] Comment on above: Performed By: #### C SRINIVAS, CMP #### [facility] [address] [phone] CO2 molar conc 20 mmol/L Low 22-30 [facility] Comment on above: Performed By: #### C SRINIVAS, CMP #### [place] [address] [place] [phone] Creatinine mass conc 1.29 mg/dL High 0.73-1.22 [facility] Comment on above: Performed By: #### C SRINIVAS, CMP #### [place] [phone] eGFR- Amer. >60 Normal [facility] Comment on above: Performed By: #### C SRINIVAS, CMP #### [address] [place] [address] [place] [phone] GFR/1.73 sq M predicted among non-blacks MDRD vol rate/area (S/P/Bld) mL/min/{1.73_m2} Normal [facility] Comment on above: Result Comment: eGFR (Estimated GFR) Units of measure: mL/min/1.73 meters squared eGFR is derived from the reexpressed MDRD Study equation using the following parameters: serum creatinine, age, gender and race. The creatinine assay has been calibrated to be traceable to IDMS. An eGFR <60 mL/min/1.73m2 for >3 months is consistent with chronic kidney disease. Refer to KDOQI guidelines for clinical interpretation. In patients with unstable renal function, e.g. those with acute kidney injury, the eGFR may not accurately reflect actual GFR. Performed By: #### C SRINIVAS, CMP #### [facility] [address] [address] Glucose mass conc 90 mg/dL Normal 74-99 [facility] Comment on above: Result Comment: The [place] Diabetes Association (ADA) provides guidance for cutoff values for fasting glucose and random glucose. The ADA defines fasting as no caloric intake for at least 8 hours. Fasting plasma glucose results between 100 to 125 mg/dL indicate increased risk for diabetes (prediabetes). Fasting plasma glucose results greater than or equal to 126 mg/dL meet the criteria for diagnosis of diabetes. In the absence of unequivocal hyperglycemia, results should be confirmed by repeat testing. In a patient with classic symptoms of hyperglycemia or hyperglycemic crisis, random plasma glucose results greater than or equal to 200 mg/dL meet the criteria for diagnosis of diabetes. Reference: Standards of Medical Care in Diabetes 2016, [place] [employer] Association. Diabetes Care. 2016.39(Suppl 1). Performed By: #### C BCALBAF, CMP #### [address] [place] [address] [place] [address] Potassium molar conc 3.1 mmol/L Low 3.7-5.1 [facility] Comment on above: Performed By: #### C BCALBAF, CMP #### [place] [address] Protein mass conc 5.7 g/dL Low 6.3-8.0 [facility] Comment on above: Performed By: #### C BCALBAF, CMP #### [address] [place] [address] [place] [address] Sodium molar conc 147 mmol/L High 136-144 [facility] Comment on above: Performed By: #### C BCALBAF, CMP #### [place] [address] Urea nitrogen mass conc 19 mg/dL Normal 9-24 [facility] Comment on above: Performed By: #### C BCALBAF, CMP #### [place] [address] ECG COMPLETEon 01-25-2019 ECG COMPLETE NAME : RAJNI LOPEZ PID : [id number] : [id number] Gender : Male Race : ORD : [id number] Procedure Date : Jan 25 2019 09:56:48 Edit Date : Feb 01 2019 16:48:51 Diagnosis:SINUS BRADYCARDIA OTHERWISE NORMAL ECG Confirmed by TRUPTI MOLINA M.D. ([id number]) on 02/01/2019 4:41:42 PM Ventricular Rate : 49 BPM Atrial Rate : 49 BPM P-R Interval : 160 ms QRS Duration : 114 ms Q-T Interval : 458 ms QTC Calculation(Bezet) : 413 ms P [place] : 19 degrees R [place] : 40 degrees T [place] : 20 degrees Test Reason : Arrhythmia Location : 35 : G62 [id number] Overread By : TRUPTI MOLINA M.D. Edited By : TRUPTI MOLINA M.D. Referred By : , Acquired by : MIKE ESPINOZA Normal [facility] Magnesiumon 01-25-2019 Magnesium mass conc 1.9 mg/dL Normal 1.7-2.3 [facility] Comment on above: Performed By: #### C BCDIF, CMP #### [facility] [address] [address] NUTRITIONon 01-25-2019 NUTRITION HNO ID: [id number] Author: Madonna Alejandre (Jose Ortega Service: NST-Nutrition Support Team Author Type: Registered Dietitian Type: Nutrition Filed: 01/25/2019 1:07 PM Note Text: NUTRITION SUPPORT TEAM INITIAL ASSESSMENT SERVICE DATE: 01/25/2019 SERVICE TIME: 11:00AM RECOMMENDED MALNUTRITION DIAGNOSIS: MILD PROTEIN-CALORIE MALNUTRITION In the context of Acute Illness or Injury based on: Insufficient Energy Intake: Less than or equal to 50% for greater than or equal to 5 days NUTRITION CARE PLAN: Intervention: Parenteral nutrition - recommend initiating PPN with: 2000 milliliters, 83 milliliters/hour 105 grams 10% amino acids 440 dextrose calories - recommend adding potassium acetate Goal: Parenteral nutrition intake provides >90% estimated nutritional requirements Discharge Nutrition Recommendations: To be determined Per HPI: 33 year old male with acute epiglottitis, S/P trach 01/22, acute respiratory failure, SHARON, agitation Relevant medical/surgical history: polysubstance abuse (methamphetamines, opioids - on methadone, alcohol) HTN obesity No diet orders placed this encounter Lines and Drains: Peripheral 01/25/19 0337 Short Right Arm 18 Gauge (Active) Peripheral 01/25/197 Short Right Forearm 20 Gauge (Active) Peripheral 01/25/19 0338 Short Right Hand 22 Gauge (Active) Nutritional Intake Prior to Admission: Unknown. Admitted to outside hospital 01/21 - possibly NPO since 01/21 (4 days). GI symptoms: unable to determine at this time Nutrition Abdominal Exam: and abdomen is soft and distended ANTHROPOMETRICS Height: 198.1 cm (6' 6) Admission Weight: (!) 164.8 kg (363 lb 5.1 oz) Current Weight: (!) 163.8 kg (361 lb 1.8 oz) Body mass index is 41.73 kg/m?. class 3 obesity Weight history: unknown Last Wt 01/25/19 : (!) 163.8 kg (361 lb 1.8 oz) [place] Body Weight: 97.5kg Dosing Weight: 163.8 kg Resting Metabolic Rate: 2722 Estimated kilocalorie needs: 1802 - 2293 kilocalories determined by 11 - 14 kcal/kg Estimated protein needs: 185 - 244 grams determined by 2.0 - 2.5 g/kg [place] weight NUTRITION FOCUSED PHYSICAL EXAM: Subcutaneous Fat Loss Orbital No fat loss Triceps No fat loss Mid-axillary at the iliac crest No fat loss Muscle Loss Locations: Temporalis No muscle loss Pectoralis No muscle loss Deltoids No muscle loss Interosseous No muscle loss Latissimus dorsi, trapezius Unable to determine at this time Quadriceps No muscle loss Gastrocnemius No muscle loss Potential micronutrient deficiency revealed in: Unable to determine at this time Edema: No Ascites: No Assessment of Functional Status: Unable to determine at this time Temperature Max in 24 hours: Temp (24hrs), Av.7 ?C (98 ?F), Min:36.3 ?C (97.3 ?F), Max:37.2 ?C (99 ?F) BP 125/74 Pulse (!) 45 Temp 36.3 ?C (97.3 ?F) (Axillary) Resp 16 Ht 198.1 cm (6' 6) Wt (!) 163.8 kg (361 lb 1.8 oz) SpO2 (!) 84% BMI 41.73 kg/m? Recent Labs 01/25/19 0141 GLUC 90 BUN 19 CREAT 1.29* NA 147* K 3.1* CHLOR 112* CO2 20* ALB 2.8* P 2.7 HB 11.7* HCT 35.5* WBC 7.83 MG 1.9 Potential Signs of Inflammation: hypoalbuminemia and epiglottitis MNT Billing Type: Initial Assess/15 min 3 units SIGNATURE: Li Ortega, MS RD LD PATIENT NAME: Pancho Lopez DATE: January 25, 2019 TIME: 12:50 PM PAGER: [phone] Normal [facility] PROGRESSon 01-25-2019 Protein mass conc HNO ID: [id number] Author: Riley Leach Service: Pulmonary Disease Author Type: Physician Type: Progress Notes Filed: 01/25/2019 6:40 PM Note Text: [facility] STAFF PHYSICIAN NOTE OF PERSONAL INVOLVEMENT IN CARE I have reviewed the clinical information obtained and documented by the resident's note and I personally participated in the casiano components. I have discussed the case and management of the patient's care. The following comments revise or confirm relevant casiano components of the note. Pancho Lopez is a 33 year old male with PMH polysubstance use who presented to the ICU with epiglottitis. Active Problems: - Epiglottitis necessitating tracheostomy. - Obstructive lung disease- on vent, there is prolonged expiratory phase. Improved w/ albuterol. Pt is smoker. No obstructions on bronch yesterday per report from Dr. Choi. No significant secretions. - polysubstance use. - Agitation. - SHARON - improving. Plan: - Will address agitation and anxiety/delirium w/ haldol prn and fentanyl for pain. - Continue vanc/zosyn for epiglottitis. Will discuss utility of steroids for epiglotic edema with ENT. - COntinue PSV on vent as tolerated. - PPN for nutrition. This patient has a high probability of sudden, clinically significant deterioration, which requires the highest level of physician preparedness to intervene urgently. I managed/supervised life or organ supporting interventions that required frequent physician assessment. I devoted my full attention to the direct care of this patient for the amount of time indicated below. Time I spent with family or surrogate(s) is included only if the patient was incapable of providing the necessary information or participating in medical decision making. Time devoted to teaching and to any procedures I billed separately is not included. Critical Care Documentation: The patient has the following organ/system impairment(s): Respiratory failure (Acute, with Hypoxemia) Time spent providing critical care services: 40 minutes. The time excludes any associate procedures which will be documented and billed separately. SIGNATURE:Riley Leach MD [facility] PAGER: [phone] DATE of SERVICE: January 25, 2019 TIME of SERVICE: 6:35 PM Normal [facility] Protein mass conc HNO ID: [id number] Author: Melissa Osorio Service: Cardiovascular Medicine Author Type: Resident Type: Progress Notes Filed: 01/25/2019 12:58 PM Note Text: [facility] PROGRESS NOTE (Template ID [id number]) Pancho Lopez [id number] Admit Date: 01/23/2019 LOS: 2 PRIMARY SERVICE: Medical Intensive care unit INTERVAL EVENTS / PERTINENT ROS: - no acute events overnight - evaluated by ENT: Flexible laryngoscopy demonstrated markedly edematous and erythematous epiglottis with purulent exudate, unable to visualize glottis. - Continue IV antibiotics for epiglottitis -- would recommend broadening to Vancomycin/Zosyn - Will repeat scope exam to monitor for improvement - No immediate plans for decannulation - Will plan to cut sutures POD 5-7 and downsize to cuffless trach - Remainder of care per primary team - Please page ENT with any questions or concerns - not tolerating off sedation due to increased anxiety : has been on propofol and fentanyl. Off precedex - labs unremarkable : WBC improved, creatinine down trending - switched from unasyn to zosyn and vancomycin Plan for today: - discontinue D10-0.45 % NS - consult to initiate PPN since not anticipating PO intake in the near future - baseline EKG - begin haldol 2.5 mg q6H + prn for anxiety - discontinue propofol - plan to trial on PSV mode and continue if tolerates - monitor electrolytes - continue Vanco + Zosyn ppx per ENT recs - appreciate ENT assistance TELEMETRY: sinus bradycardia VENT SETTINGS: PSV mode, 40 % FiO2 PHYSICAL EXAM: BP 125/74 Pulse (!) 45 Temp 36.3 ?C (97.3 ?F) (Axillary) Resp 16 Ht 198.1 cm (6' 6) Wt (!) 163.8 kg (361 lb 1.8 oz) SpO2 (!) 84% BMI 41.73 kg/m? Body mass index is 41.73 kg/m?. Intake/Output Summary (Last 24 hours) at 01/25/2019 1238 Last data filed at 01/25/2019 0600 Gross per 24 hour Intake 3441 ml Output 2310 ml Net 1131 ml General: morbidly obese male, sedated Resp : b/l clear air entry present, no wheeze, rales, rhonchi Cardiac : S1S2 present, no mrg, regular rate and rhythm GI: large distended abdomen, BS+, limited due to obesity Extremities: no edema, pulses 2+ Skin: no visible rash, ulcers ? ASSESSMENT AND PLAN: Pancho Lopez is a 33 y.o. M w/PMH of multiple substance abuse who presents with concern for epiglottitis. ? Neurological: - Intubated and sedated 2/2 agitation at the OSH - Outside notes mention belligerence etc. when not heavily sedated, in addition to the patient being asked to be knocked out - Hx notable for polysubstance abuse including methamphetamines in the previous week - ongoing agitation PLAN: - Monitor for signs of agitation - Slowly wean sedation; restraints as needed to keep patient safe - Avoid opioids, sedatives, benzos as able - baseline EKG - initiate haldol 2.5 mg q6H + prn ? Cardiovascular: - Notably hypertensive at OSH. Was controlled with hydralazine PLAN: - Control blood pressure as needed - hydralazine ? Respiratory: - Intubated and sedated on the vent 2/2 upper airway obstruction secondary to epiglottitis PLAN: - decrease sedation - continue mechanical ventilation on pressure support - continue vanco and zosyn, de-escalate as able - appreciate ENT assistance ? Infectious Disease: - Labs at OSH notable for WBC to 32.9, granted, this was after administration of steroids. - Imaging concerning for epiglottitis - Notes mention initial treatment with zosyn, followed by vancomycin and ceftriaxone. Last notes prior to transfer show administration of unasyn. Unclear the duration of these medications or the accuracy of these notes. Improvement of WBC to 15 at OSH. PLAN: - follow blood cultures x2 - continue vanco and zosyn, de-escalate as able - appreciate ENT assistance - Follow CBC for WBC count ? Endocrine - no acute concerns - blood sugars well controlled ? Gastrointestinal/Nutrition: - unlikely PO intake - consult for PPN - GI PPx ? Renal: - Outside labs notable for SHARON. No baseline CKD. Unclear etiology but likely relates to possible severe sepsis. - SHARON resolving PLAN: - Continue to follow BMP - follow Urine Na, urine creatinine ? Prophylaxis: DVT PPX: Heparin 5000 u GI PPX: Protonix 40 mg qd ? Plan will be discussed with MICU Staff. ? ? PATIENT CHECKLIST ? Are restraints necessary: No ? Deep vein thrombosis prophylaxis administered? Yes ? Stress ulcer prophylaxis? Yes ? Nasogastric tube? No ? Agrawal catheter necessary? No ? Is central line essential? No ? Plan discussed with assigned RN? Yes ? Family updated within last 24 hours? No SIGNATURE: Melissa Osorio MD PAGER: [phone] DATE of SERVICE: 01/25/2019 TIME of SERVICE: 12:31 PM Normal [facility] Phosphoruson 01-25-2019 Phosphate mass conc 2.7 mg/dL Normal 2.7-4.8 [facility] Comment on above: Performed By: #### C BCDIF, CMP #### [place] [id number] [place] [phone] Basic Metabolic Panlon 01-24 Anion gap molar conc 11 mmol/L Normal 9-18 [facility] Comment on above: Performed By: #### C BCDIF, CMP #### [facility] [address] [place] [phone] Calcium mass conc 8.4 mg/dL Low 8.5-10.2 [facility] Comment on above: Performed By: #### C BCDIF, CMP #### [facility] [address] [place] [address] Chloride molar conc 108 mmol/L High 97-105 [facility] Comment on above: Performed By: #### C BCDIF, CMP #### [facility] [employer] [address] [place] [address] CO2 molar conc 22 mmol/L Normal 22-30 [facility] Comment on above: Performed By: #### C BCDIF, CMP #### [facility] [employer] [address] [place] [phone] Creatinine mass conc 1.57 mg/dL High 0.73-1.22 [facility] Comment on above: Performed By: #### C NUNO ESPINO #### [facility] [employer] [address] [place] [address] eGFR- Amer. >60 Normal [facility] Comment on above: Performed By: #### C NUNO ESPINO #### [facility] [address] [place] [address] GFR/1.73 sq M predicted among non-blacks MDRD vol rate/area (S/P/Bld) 51 . Normal [facility] Comment on above: Result Comment: eGFR (Estimated GFR) Units of measure: mL/min/1.73 meters squared eGFR is derived from the reexpressed MDRD Study equation using the following parameters: serum creatinine, age, gender and race. The creatinine assay has been calibrated to be traceable to IDMS. An eGFR <60 mL/min/1.73m2 for >3 months is consistent with chronic kidney disease. Refer to KDOQI guidelines for clinical interpretation. In patients with unstable renal function, e.g. those with acute kidney injury, the eGFR may not accurately reflect actual GFR. Performed By: #### C NUNO ESPINO #### [facility] [address] [place] [address] Glucose mass conc 94 mg/dL Normal 74-99 [facility] Comment on above: Result Comment: The [place] Diabetes Association (ADA) provides guidance for cutoff values for fasting glucose and random glucose. The ADA defines fasting as no caloric intake for at least 8 hours. Fasting plasma glucose results between 100 to 125 mg/dL indicate increased risk for diabetes (prediabetes). Fasting plasma glucose results greater than or equal to 126 mg/dL meet the criteria for diagnosis of diabetes. In the absence of unequivocal hyperglycemia, results should be confirmed by repeat testing. In a patient with classic symptoms of hyperglycemia or hyperglycemic crisis, random plasma glucose results greater than or equal to 200 mg/dL meet the criteria for diagnosis of diabetes. Reference: Standards of Medical Care in Diabetes 2016, [place] [employer]. Diabetes Care. 2016.39(Suppl 1). Performed By: #### C NUNO ESPINO #### [facility] [address] [place] [address] Potassium molar conc 3.6 mmol/L Low 3.7-5.1 [facility] Comment on above: Performed By: #### C BCDIF, CMP #### [facility] [address] [place] [address] Sodium molar conc 141 mmol/L Normal 136-144 [facility] Comment on above: Performed By: #### C BCDIF, CMP #### [place] [phone] [place] [phone] Urea nitrogen mass conc 24 mg/dL Normal 9-24 [facility] Comment on above: Performed By: #### C BCDIF, CMP #### [place] [phone] Blood Cultureon 01-24-2019 Bacteria identified Cx Nom (Bld) Sp. Request/Comment: - The blood culture bottles are underfilled. Adding volume lower or higher than the 8 to 10 mL per bottle, which is the manufacturers recommended volume, may adversely affect the recovery and/or detection of organisms. 11.7CC Culture Result - No growth 5 days Normal [facility] Comment on above: Performed By: #### B LCUL ####[facility] [place] [phone] Bacteria identified Cx Nom (Bld) Culture Result - No growth 5 days Normal [facility] Comment on above: Performed By: #### B LCUL ####[facility] [place] [phone] CBC and Differentialon 01-24 Abs Baso 0.04 k/uL Normal <0.11 [facility] Comment on above: Performed By: #### C BCDIF, CMP, MG1, PHOS #### [facility] [address] [place] [phone] Abs [place] 1.06 k/uL High <0.87 [facility] Comment on above: Performed By: #### C BCDIF, CMP, MG1, PHOS #### [place] [phone] [place] [address] Abs Neut 7.67 k/uL High 1.45-7.50 [facility] Comment on above: Performed By: #### C BCDIF, CMP, MG1, PHOS #### [place] [phone] [place] [address] Absolute nRBC <0.01 Normal <0.01 [facility] Comment on above: Performed By: #### C BCDIF, CMP, MG1, PHOS #### [place] [address] Basophils/100 WBC (Bld) 0.4 % Normal [facility] Comment on above: Performed By: #### C BCDIF, CMP, MG1, PHOS #### [place] [address] DTYPE Auto Diff Normal [facility] Comment on above: Performed By: #### C BCDIF, CMP, MG1, PHOS #### [place] [address] Eosinophils #/vol (Bld) 0.14 10*3/uL Normal <0.46 [facility] Comment on above: Performed By: #### C BCDIF, CMP, MG1, PHOS #### [place] [phone] [place] [address] Eosinophils/100 WBC (Bld) 1.3 % Normal [facility] Comment on above: Performed By: #### C BCDIF, CMP, MG1, PHOS #### [place] [phone] [place] [address] Erythrocyte distribution width Ratio (RBC) 13.0 % Normal 11.5-15.0 [facility] Comment on above: Performed By: #### C BCDIF, CMP, MG1, PHOS #### [place] [phone] [place] [phone] Hematocrit Volume Fraction (Bld) 36.3 % Low 39.0-51.0 [facility] Comment on above: Performed By: #### C BCDIF, CMP, MG1, PHOS #### [place] [phone] Hemoglobin mass conc (Bld) 11.8 g/dL Low 13.0-17.0 [facility] Comment on above: Performed By: #### C BCDIF, CMP, MG1, PHOS #### [place] [phone] Lymphocytes #/vol (Bld) 2.18 10*3/uL Normal 1.00-4.00 [facility] Comment on above: Performed By: #### C BCDIF, CMP, MG1, PHOS #### [place] [phone] Lymphocytes/100 WBC (Bld) 19.7 % Normal [facility] Comment on above: Performed By: #### C BCDIF, CMP, MG1, PHOS #### [place] [phone] MCH Entitic mass (RBC) 29.0 pG Normal 26.0-34.0 [facility] Comment on above: Performed By: #### C BCDIF, CMP, MG1, PHOS #### [place] [phone] [place] [phone] MCHC mass conc (RBC) 32.5 g/dL Normal 30.5-36.0 [facility] Comment on above: Performed By: #### C BCDIF, CMP, MG1, PHOS #### [place] [phone] MCV Entitic volume (RBC) 89.2 fL Normal 80.0-100.0 [facility] Comment on above: Performed By: #### C BCDIF, CMP, MG1, PHOS #### [facility] [address] [place], [place] [address] Monocytes/100 WBC (Bld) 9.6 % Normal [facility] Comment on above: Performed By: #### C BCDIF, CMP, MG1, PHOS #### [place] [phone] [place] [address] Neutrophils/100 WBC (Bld) 69.0 % Normal [facility] Comment on above: Performed By: #### C BCDIF, CMP, MG1, PHOS #### [place] [address] NRBCs 0.0 /100 WBC Normal 0 [facility] Comment on above: Performed By: #### C BCDIF, CMP, MG1, PHOS #### [place] [address] [place], [place] [address] Platelet mean volume Entitic volume (Bld) 11.8 fL Normal 9.0-12.7 [facility] Comment on above: Performed By: #### C BCDIF, CMP, MG1, PHOS #### [place] [phone] [place] [phone] Platelets #/vol (Bld) 186 10*3/uL Normal 150-400 [facility] Comment on above: Performed By: #### C BCDIF, CMP, MG1, PHOS #### [place] [phone] [place] [address] RBC #/vol (Bld) 4.07 10*6/uL Low 4.20-6.00 [facility] Comment on above: Performed By: #### C BCDIF, CMP, MG1, PHOS #### [address] [place], [place] [phone] WBC #/vol (Bld) 11.09 10*3/uL High 3.70-11.00 [facility] Comment on above: Performed By: #### C BCDIF, CMP, MG1, PHOS #### [place] [phone] [place] [address] Comp Metabolic Panelon 01-24 Albumin mass conc 3.4 g/dL Low 3.9-4.9 [facility] Comment on above: Performed By: #### C BCDIF, CMP, MG1, PHOS #### [place] [phone] [place] [address] ALP enzyme act/vol 65 U/L Normal 38-113 [facility] Comment on above: Performed By: #### C BCDIF, CMP, MG1, PHOS #### [place] [address] ALT enzyme act/vol 45 U/L Normal 10-54 [facility] Comment on above: Performed By: #### C BCDIF, CMP, MG1, PHOS #### [place] [address] [place] [phone] Anion gap molar conc 13 mmol/L Normal 9-18 [facility] Comment on above: Performed By: #### C BCDIF, CMP, MG1, PHOS #### [place] [address] [place], [place] [address] AST enzyme act/vol 32 U/L Normal 14-40 [facility] Comment on above: Performed By: #### C BCDIF, CMP, MG1, PHOS #### [place] [address] [place] [phone] Bilirubin mass conc 0.3 mg/dL Normal 0.2-1.3 [facility] Comment on above: Performed By: #### C BCDIF, CMP, MG1, PHOS #### [place] [address] [place] [phone] Calcium mass conc 9.1 mg/dL Normal 8.5-10.2 [facility] Comment on above: Performed By: #### C BCDIF, CMP, MG1, PHOS #### [place] [address] [place] [phone] Chloride molar conc 108 mmol/L High 97-105 [facility] Comment on above: Performed By: #### C BCDIF, CMP, MG1, PHOS #### [place] [phone] CO2 molar conc 25 mmol/L Normal 22-30 [facility] Comment on above: Performed By: #### C BCDIF, CMP, MG1, PHOS #### [place] [phone] Creatinine mass conc 1.62 mg/dL High 0.73-1.22 [facility] Comment on above: Performed By: #### C BCDIF, CMP, MG1, PHOS #### [place] [phone] eGFR- Amer. >60 Normal [facility] Comment on above: Performed By: #### C BCDIF, CMP, MG1, PHOS #### [place] [phone] GFR/1.73 sq M predicted among non-blacks MDRD vol rate/area (S/P/Bld) 50 . Normal [facility] Comment on above: Result Comment: eGFR (Estimated GFR) Units of measure: mL/min/1.73 meters squared eGFR is derived from the reexpressed MDRD Study equation using the following parameters: serum creatinine, age, gender and race. The creatinine assay has been calibrated to be traceable to IDMS. An eGFR <60 mL/min/1.73m2 for >3 months is consistent with chronic kidney disease. Refer to KDOQI guidelines for clinical interpretation. In patients with unstable renal function, e.g. those with acute kidney injury, the eGFR may not accurately reflect actual GFR. Performed By: #### C BCDIF, CMP, MG1, PHOS #### [facility] [employer] [address] [place], [place] [address] Glucose mass conc 81 mg/dL Normal 74-99 [facility] Comment on above: Result Comment: The [place] Diabetes [employer] (ADA) provides guidance for cutoff values for fasting glucose and random glucose. The ADA defines fasting as no caloric intake for at least 8 hours. Fasting plasma glucose results between 100 to 125 mg/dL indicate increased risk for diabetes (prediabetes). Fasting plasma glucose results greater than or equal to 126 mg/dL meet the criteria for diagnosis of diabetes. In the absence of unequivocal hyperglycemia, results should be confirmed by repeat testing. In a patient with classic symptoms of hyperglycemia or hyperglycemic crisis, random plasma glucose results greater than or equal to 200 mg/dL meet the criteria for diagnosis of diabetes. Reference: Standards of Medical Care in Diabetes 2016, [place] [employer]. Diabetes Care. 2016.39(Suppl 1). Performed By: #### C BCDIF, CMP, MG1, PHOS #### [facility] [employer] [address] [place], [place] [address] Potassium molar conc 3.9 mmol/L Normal 3.7-5.1 [facility] Comment on above: Performed By: #### C BCDIF, CMP, MG1, PHOS #### [facility] [employer] [address] [place], [place] [address] Protein mass conc 6.5 g/dL Normal 6.3-8.0 [facility] Comment on above: Performed By: #### C BCDIF, CMP, MG1, PHOS #### [facility] [employer] [address] [place], [place] [address] Sodium molar conc 146 mmol/L High 136-144 [facility] Comment on above: Performed By: #### C BCDIF, CMP, MG1, PHOS #### [facility] [address] [place], [place] [address] Urea nitrogen mass conc 28 mg/dL High 9-24 [facility] Comment on above: Performed By: #### C BCDIF, CMP, MG1, PHOS #### [facility] [address] [place] [address] Creatinine,Urine,Ranon 01-24 Creatinine,Urine,Ra n 93.8 mg/dL Normal 20-300 [facility] Comment on above: Performed By: #### C BCDIF, CMP #### [facility] [address] [place] [address] Magnesiumon 01-24-2019 Magnesium mass conc 2.2 mg/dL Normal 1.7-2.3 [facility] Comment on above: Performed By: #### C BCDIF, CMP, MG1, PHOS #### [facility] [address] [place] [address] PROGRESSon 01-24-2019 Protein mass conc HNO ID: [id number] Author: Dilcia (Rn) COLETTE Ricci Service: Nursing Author Type: Registered Nurse Type: Progress Notes Filed: 01/24/2019 8:03 PM Note Text: 0830: fentanyl and propofol stopped for SAT. Patient resting comfortably. 0900: pt. waking from sedation. I oriented him to time and place. 0915: pt. Now on trach collar. Pt became agitated, pulled off pulse oximeter and refused to let it be put back on. 0920: pt. Started complaining of not being able to breathe, and felt like he was choking. I suctioned him (ET and orally) and asked respiratory therapy to come assess the pt. Unable to calm patient. 0935: Pt. Still agitated and throwing items. [facility] team paged to bedside. 1000: fentanyl gtt started for pain 1015: precedex started and fentanyl gtt stopped. Pt removed BP cuff and is refusing to allow BP to be taken. 1030: [facility] team paged to bedside again for increasing agitation and statement of feeling of inability to breathe. Asked team for medication for anxiety. 1630: pt put call light on and requested his family to bedside. I went to get his family from the waiting room. Family at bedside. 1640: pt. Became very agitated and anxious. Stated could not breathe and feeling like he was choking. Suctioned him. Asked respiratory to assess pt. Attempted to calm and redirect pt. Pt. Observed asleep. Resting comfortably in bed. Normal [facility] Protein mass conc HNO ID: [id number] Author: Nikko Choi Service: Critical Care Author Type: Physician Type: Progress Notes Filed: 01/24/2019 3:26 PM Note Text: [facility] STAFF PHYSICIAN NOTE OF PERSONAL INVOLVEMENT IN CARE I have reviewed the progress note obtained and documented by the resident and I personally participated in the casiano components. I have discussed the case and management of the patient's care. The following comments revise or confirm relevant casiano components of the note. IMPRESSION: 33 y.o. M w/PMH of multiple substance abuse who presented to [place] with concern for epiglottitis s/p tracheostomy and transferred to [facility] for further management 1. Epiglottis 2. Upper Airway obstruction 3. S/p trach 4. Agitation 5. Acute respiratory failure 6.SHARON PLAN: [employer]ENT: Off sedation, alert, interactive, witting on paper but feels unable to breathe and wants to be sedated, on sedation RS: Bedside bronch as patient kept complaining the trach is clogged. Clean Trach and upper airway with bedside bronch. ENT for upper airway evaluation, cont antibiotics GI: Awaiting EN Renal:SHARON pre renal vs GN as concern for strep epiglottis, check UA, ASO titer, urine microscopy ID: IV Unasyn PX: MICU PX This patient has a high probability of sudden, clinically significant deterioration, which requires the highest level of physician preparedness to intervene urgently. I managed/supervised life or organ supporting interventions that required frequent physician assessment. I devoted my full attention to the direct care of this patient for the amount of time indicated below. Time I spent with family or surrogate(s) is included only if the patient was incapable of providing the necessary information or participating in medical decision making. Time devoted to teaching is not included. Critical Care Documentation: The patient has the following organ/system impairment(s): Acute kidney injury and Respiratory failure (Acute, with Hypoxemia) Time spent providing critical care services: 40 minutes excluding procedures. SIGNATURE: Nikko Choi MD [facility] PAGER:[phone] DATE of SERVICE: 01/24/19 TIME of SERVICE: 3:22 PM Normal [facility] Phosphoruson 01-24-2019 Phosphate mass conc 3.6 mg/dL Normal 2.7-4.8 [facility] Comment on above: Performed By: #### C BCDIF, CMP #### [place] [address] [place] [address] Sodium,Urine,Randomon 2018 Sodium molar conc (U) 56 mmol/L Normal 14-216 [facility] Comment on above: Performed By: #### C BCDIF, CMP #### [place] [address] [place] [address] CBC and Differentialon 01-23 Abs Baso 0.03 k/uL Normal <0.11 [facility] Comment on above: Performed By: #### C BCDIF, CMP #### [place] [address] [place] [address] Abs [place] 1.42 k/uL High <0.87 [facility] Comment on above: Performed By: #### C BCDIF, CMP #### [place] [address] [place] [address] Abs Neut 8.31 k/uL High 1.45-7.50 [facility] Comment on above: Performed By: #### C BCDIF, CMP #### [place] [address] [place] [address] Absolute nRBC <0.01 Normal <0.01 [facility] Comment on above: Performed By: #### C BCDIF, CMP #### [place] [address] [place] [phone] Basophils/100 WBC (Bld) 0.3 % Normal [facility] Comment on above: Performed By: #### C BCDIF, CMP #### [facility] [address] [place] [phone] DTYPE Auto Diff Normal [facility] Comment on above: Performed By: #### C BCDIF, CMP #### [place] [address] [place] [phone] Eosinophils #/vol (Bld) 0.16 10*3/uL Normal <0.46 [facility] Comment on above: Performed By: #### C BCDIF, CMP #### [place] [address] [place] [phone] Eosinophils/100 WBC (Bld) 1.4 % Normal [facility] Comment on above: Performed By: #### C BCDIF, CMP #### [place] [phone] Erythrocyte distribution width Ratio (RBC) 13.0 % Normal 11.5-15.0 [facility] Comment on above: Performed By: #### C BCDIF, CMP #### [place] [phone] Hematocrit Volume Fraction (Bld) 36.5 % Low 39.0-51.0 [facility] Comment on above: Performed By: #### C BCDIF, CMP #### [place] [address] [place] [phone] Hemoglobin mass conc (Bld) 12.1 g/dL Low 13.0-17.0 [facility] Comment on above: Performed By: #### C BCDIF, CMP #### [place] [address] [place] [phone] Lymphocytes #/vol (Bld) 1.85 10*3/uL Normal 1.00-4.00 [facility] Comment on above: Performed By: #### C BCDIF, CMP #### [place] [address] Lymphocytes/100 WBC (Bld) 15.7 % Normal [facility] Comment on above: Performed By: #### C BCDIF, CMP #### [place] [address] [place], [place] [address] MCH Entitic mass (RBC) 30.0 pG Normal 26.0-34.0 [facility] Comment on above: Performed By: #### C BCDIF, CMP #### [place] [address] [place] [address] MCHC mass conc (RBC) 33.2 g/dL Normal 30.5-36.0 [facility] Comment on above: Performed By: #### C BCDIF, CMP #### [address] [address] MCV Entitic volume (RBC) 90.3 fL Normal 80.0-100.0 [facility] Comment on above: Performed By: #### C BCDIF, CMP #### [place] [id number] [place], [place] [address] Monocytes/100 WBC (Bld) 12.1 % Normal [facility] Comment on above: Performed By: #### C BCDIF, CMP #### [address] [address] Neutrophils/100 WBC (Bld) 70.5 % Normal [facility] Comment on above: Performed By: #### C BCDIF, CMP #### [place] [id number] [place], [place] [address] NRBCs 0.0 /100 WBC Normal 0 [facility] Comment on above: Performed By: #### C BCDIF, CMP #### [place] [id number] [place], [place] [address] Platelet mean volume Entitic volume (Bld) 11.8 fL Normal 9.0-12.7 [facility] Comment on above: Performed By: #### C BCDIF, CMP #### [facility] [address] [place], [place] [address] Platelets #/vol (Bld) 176 10*3/uL Normal 150-400 [facility] Comment on above: Performed By: #### C BCDIF, CMP #### [place] [address] [place], [place] [address] RBC #/vol (Bld) 4.04 10*6/uL Low 4.20-6.00 [facility] Comment on above: Performed By: #### C BCDIF, CMP #### [place] [address] [place], [place] [address] WBC #/vol (Bld) 11.77 10*3/uL High 3.70-11.00 [facility] Comment on above: Performed By: #### C BCDIF, CMP #### [place] [address] Comp Metabolic Panelon 01-23 Albumin mass conc 3.2 g/dL Low 3.9-4.9 [facility] Comment on above: Performed By: #### C BCDIF, CMP #### [place] [address] [place], [place] [address] ALP enzyme act/vol 58 U/L Normal 38-113 [facility] Comment on above: Performed By: #### C BCDIF, CMP #### [place] [address] [place], [place] [address] ALT enzyme act/vol 38 U/L Normal 10-54 [facility] Comment on above: Performed By: #### C BCDIF, CMP #### [place] [address] [place], [place] [address] Anion gap molar conc 10 mmol/L Normal 9-18 [facility] Comment on above: Performed By: #### C BCDIF, CMP #### [facility] [address] [place] [phone] AST enzyme act/vol 26 U/L Normal 14-40 [facility] Comment on above: Performed By: #### C BCDIF, CMP #### [facility] [address] [place] [address] Bilirubin mass conc 0.2 mg/dL Normal 0.2-1.3 [facility] Comment on above: Performed By: #### C BCDIF, CMP #### [place] [address] [place] [address] Calcium mass conc 8.2 mg/dL Low 8.5-10.2 [facility] Comment on above: Performed By: #### C BCDIF, CMP #### [place] [address] [place] [phone] Chloride molar conc 110 mmol/L High 97-105 [facility] Comment on above: Performed By: #### C BCDIF, CMP #### [place] [address] [place] [phone] CO2 molar conc 25 mmol/L Normal 22-30 [facility] Comment on above: Performed By: #### C BCDIF, CMP #### [facility] [address] [place] [address] Creatinine mass conc 1.57 mg/dL High 0.73-1.22 [facility] Comment on above: Performed By: #### C BCDIF, CMP #### [facility] [address] [place] [phone] eGFR- Amer. >60 Normal [facility] Comment on above: Performed By: #### C BCDIF, CMP #### [facility] [address] [place] [phone] GFR/1.73 sq M predicted among non-blacks MDRD vol rate/area (S/P/Bld) 51 . Normal [facility] Comment on above: Result Comment: eGFR (Estimated GFR) Units of measure: mL/min/1.73 meters squared eGFR is derived from the reexpressed MDRD Study equation using the following parameters: serum creatinine, age, gender and race. The creatinine assay has been calibrated to be traceable to IDMS. An eGFR <60 mL/min/1.73m2 for >3 months is consistent with chronic kidney disease. Refer to KDOQI guidelines for clinical interpretation. In patients with unstable renal function, e.g. those with acute kidney injury, the eGFR may not accurately reflect actual GFR. Performed By: #### C BCDIF, CMP #### [facility] [address] [place], [place] [address] Glucose mass conc 139 mg/dL High 74-99 [facility] Comment on above: Result Comment: The [place] Diabetes Association (ADA) provides guidance for cutoff values for fasting glucose and random glucose. The ADA defines fasting as no caloric intake for at least 8 hours. Fasting plasma glucose results between 100 to 125 mg/dL indicate increased risk for diabetes (prediabetes). Fasting plasma glucose results greater than or equal to 126 mg/dL meet the criteria for diagnosis of diabetes. In the absence of unequivocal hyperglycemia, results should be confirmed by repeat testing. In a patient with classic symptoms of hyperglycemia or hyperglycemic crisis, random plasma glucose results greater than or equal to 200 mg/dL meet the criteria for diagnosis of diabetes. Reference: Standards of Medical Care in Diabetes 2016, [place] [employer]. Diabetes Care. 2016.39(Suppl 1). Performed By: #### C BCDIF, CMP #### [facility] [address] [place], [place] [address] Potassium molar conc 3.8 mmol/L Normal 3.7-5.1 [facility] Comment on above: Performed By: #### C BCALBAF, CMP #### [facility] [address] [place], [place] [address] Protein mass conc 5.8 g/dL Low 6.3-8.0 [facility] Comment on above: Performed By: #### C BCDIF, CMP #### [facility] [address] [place], [place] [address] Sodium molar conc 145 mmol/L High 136-144 [facility] Comment on above: Performed By: #### C BCDIF, CMP #### [facility] [address] [place] [address] Urea nitrogen mass conc 29 mg/dL High 9-24 [facility] Comment on above: Performed By: #### C BCDIF, CMP #### [facility] [address] [place], [place] [address] HISTORY PHYSICALon HISTORY PHYSICAL HNO ID: [id number] Author: Jose R Butler Service: Critical Care Author Type: Physician Type: HANDP Filed: 01/24/2019 1:15 AM Note Text: MICU - HISTORY AND PHYSICAL Admission Date: 01/23/2019 Day #: 0 in the MICU. SUBJECTIVE: Chief Complaint: Upper Airway Obstruction HPI: This is a 33 year old male with PMH of: - Polysubstance abuse- methamphetamines (in previous 1 week), opioids (on methadone) - Tobacco Abuse - EtOH abuse - HTN- currently not being treated 2/2 non-compliance - Obesity Who presents to [facility] from OSH with concern for upper airway obstruction. The patient intially presented to [facility] on 01/21/19 with concern for sore throat. He was diagnosed with strep throat empirically and D/Sree with steroids and Abx. He then returned to the ED later that day and endorsed worsening difficulty breathing. At that time, he was noted to have BP 191/125 (some mention of as high as 250 systolic), HR 101, RR 17 @ 97% on RA, WBC of 32.9 with ANC of 30.8, AST 40, ALT 92, and lactate of 2.5. On exam, he was observed to have a muffled voice which prompted a CT neck. The CT scan showed concern for epiglottitis and gas in the epiglottis. On re-exam, the staff felt as if he sounded worse, and he was observed to be in a sniffing position (tripoding?). He then began endorsing inability to breath through his mouth (nose only), and inability to swallow his secretions. No ENT doctor was available to evaluate the patient at that time, so anesthesia was called to place ETT. Attempts to intubate by anesthesia were unsuccessful so an LMA was inserted. The patient was then taken to the OR for placement of urgent tracheostomy which was successful. Following placement of the trach, the patient was admitted to the MICU. Given the mild transaminities, abdominal ultrasound was done which was essentially unremarkable but did see hepatomegaly and fatty infiltration of the liver. On 01/22, the patient was noted to have developed an SHARON with creatinine level of 1.86, and BUN of 23. He was otherwise improving on ABX and fluids, and was communicating with staff by nodding his head etc. Later that day, the patient was noted to be belligerent and extremely agitated with staff and called the product design specialist to the room and requested to be transferred to another facility, as he felt like he was not receiving good care. He insisted that he wanted the trach out and that he felt like he was unable to breathe. After being told that it needed to remain in place 2/2 airway protection, he requested to be entirely sedated pending transfer so that he wouldn't freak out. He was sedated as requested pending transfer on 01/23 and out of concern for staff safety. The following day, the patient was noted to be afebrile, HDS, with improving SHARON (creatinine 1.61) and WBC count (15). He was sent to [facility] later that evening in stable condition. On evaluation here at [facility], he is intubated and sedated heavily and could not be aroused. The history was ascertained from the notes. PAST MEDICAL HISTORY Diagnosis Date - Alcohol abuse - HTN (hypertension) - Obesity (BMI 30-39.9) - Opioid abuse (HCC) on methadone - Polysubstance abuse (HCC) 01/23/2019 Methamphetamines, Opioids PAST SURGICAL HISTORY Procedure Laterality Date - CHOLECYSTECTOMY - TONSILLECTOMY HX FAMILY HISTORY Problem Relation Age of Onset - Hypertension Mother - Diabetes Mother - Heart disease Mother - Hypertension Father - Diabetes Father - Heart disease Father Social History Socioeconomic History Marital status: Single Spouse name: Not on file Number of children: Not on file Years of education: Not on file Highest education level: Not on file Social Needs Financial resource strain: Not on file Food insecurity - worry: Not on file Food insecurity - inability: Not on file Transportation needs - medical: Not on file Transportation needs - non-medical: Not on file Occupational History Not on file Tobacco Use Smoking status: Current Every Day Smoker Types: Cigarettes Smokeless tobacco: Never Used Substance and Sexual Activity Alcohol use: Yes Drug use: Yes Types: Amphetamines, Narcotics Sexual activity: Not on file Other Topics Concerns: Not on file Social History Narrative Not on file CURRENT MEDICATIONS: Current Facility-Administered Medications Medication Dose Route Frequency - potassium chloride ER 40 mEq tab(s) (K-DUR, KLOR-CON) 40 mEq ORAL/FEEDING TUBE q 2 H PRN - magnesium sulfate in water 4-6 g in sterile water 50 ml 4-6 g INTRAVENOUS PRN - sodium glycerophosphate 45 mmol in NaCl 0.9% 250 mL (GLYCOPHOS) 45 mmol INTRAVENOUS PRN - NaCl 0.9% 3-5 mL 3-5 mL INTRAVENOUS q 12 H - insulin regular human injection (short acting) (NovoLIN R,HumuLIN R) SUBCUTANEOUS q 6 H - insulin regular 100 units in NaCl 0.9% 100 mL iv infusion - ICU NOMOGRAM 0.5-30 Units/hr INTRAVENOUS CONTINUOUS - insulin regular human iv bolus 2-10 Units 2-10 Units INTRAVENOUS PRN - dextrose 50% in water 25-50 mL syringe 12.5-25 g INTRAVENOUS PRN - dextrose 40 % 15 g 15 g ORAL PRN - glucagon 1 mg injection (GLUCAGEN) 1 mg SUBCUTANEOUS PRN - fentaNYL 50 mcg/mL 50-100 mcg injection (SUBLIMAZE) 50-100 mcg INTRAVENOUS q 15 MIN PRN - fentaNYL 20 mcg/mL iv infusion in NaCl 0.9% 100 mL 50-250 mcg/hr INTRAVENOUS CONTINUOUS - propofol iv bolus 20 mg (DIPRIVAN) 20 mg INTRAVENOUS q 30 MIN PRN - propofol infusion (DIPRIVAN) 5-60 mcg/kg/min INTRAVENOUS CONTINUOUS - Chlorhexidine Gluconate 0.12 % 15 mL (PERIDEX) 15 mL ORAL QID - heparin 5,000 Units injection 5,000 Units SUBCUTANEOUS q 12 H - dextrose 5% in NaCl 0.45% iv infusion 75 mL/hr INTRAVENOUS CONTINUOUS - ampicillin-sulbactam 3 g in NaCl 0.9% 100 mL MB+/ADD-[place] (UNASYN) 3 g INTRAVENOUS q 6 H - pantoprazole 40 mg injection (PROTONIX) 40 mg INTRAVENOUS DAILY (6 AM) OUTPATIENT MEDICATIONS: Current Facility-Administered Medications: potassium chloride ER 40 mEq tab(s) (K-DUR, KLOR-CON) 40 mEq ORAL/FEEDING TUBE q 2 H PRN magnesium sulfate in water 4-6 g in sterile water 50 ml 4-6 g INTRAVENOUS PRN sodium glycerophosphate 45 mmol in NaCl 0.9% 250 mL (GLYCOPHOS) 45 mmol INTRAVENOUS PRN NaCl 0.9% 3-5 mL 3-5 mL INTRAVENOUS q 12 H insulin regular human injection (short acting) (NovoLIN R,HumuLIN R) SUBCUTANEOUS q 6 H insulin regular 100 units in NaCl 0.9% 100 mL iv infusion - ICU NOMOGRAM 0.5-30 Units/hr INTRAVENOUS CONTINUOUS insulin regular human iv bolus 2-10 Units 2-10 Units INTRAVENOUS PRN dextrose 50% in water 25-50 mL syringe 12.5-25 g INTRAVENOUS PRN dextrose 40 % 15 g 15 g ORAL PRN glucagon 1 mg injection (GLUCAGEN) 1 mg SUBCUTANEOUS PRN fentaNYL 50 mcg/mL 50-100 mcg injection (SUBLIMAZE) 50-100 mcg INTRAVENOUS q 15 MIN PRN fentaNYL 20 mcg/mL iv infusion in NaCl 0.9% 100 mL 50-250 mcg/hr INTRAVENOUS CONTINUOUS propofol iv bolus 20 mg (DIPRIVAN) 20 mg INTRAVENOUS q 30 MIN PRN propofol infusion (DIPRIVAN) 5-60 mcg/kg/min INTRAVENOUS CONTINUOUS Chlorhexidine Gluconate 0.12 % 15 mL (PERIDEX) 15 mL ORAL QID heparin 5,000 Units injection 5,000 Units SUBCUTANEOUS q 12 H dextrose 5% in NaCl 0.45% iv infusion 75 mL/hr INTRAVENOUS CONTINUOUS ampicillin-sulbactam 3 g in NaCl 0.9% 100 mL MB+/ADD-[place] (UNASYN) 3 g INTRAVENOUS q 6 H pantoprazole 40 mg injection (PROTONIX) 40 mg INTRAVENOUS DAILY (6 AM) COMPLETE REVIEW OF SYSTEMS: Unable to complete as patient is intubated and sedated OBJECTIVE: VITAL SIGNS (last 24hrs min/max): 01/23/19 2145 01/23/19 2200 01/23/19 2300 01/24/19 0000 BP: 136/66 135/70 133/74 Pulse: (!) 57 (!) 56 (!) 54 Resp: 16 16 8 Temp: 37 ?C (98.6 ?F) TempSrc: Axillary SpO2: 99% 99% 100% Weight: Height: NET FLUID BALANCE No intake or output data in the 24 hours ending 01/24/19 0023 INFUSIONS: Fentanyl and Propofol INDWELLING CATHETERS: Other Lines/Drains: PIV and condom catheter HEENT: Oral Mucosa: Moist mucous membranes Feeding Tube: No Eyes: PERRLA Neck: Unremarkable; No adenopathy or JVD Cardiovascular: Regular rhythm Relevant Hemodynamic Data: HDS Respiratory: Clear to auscultation Mechanical Ventilator Settings: PRVC- freq 16, TV 650, Peep 5, @ 21% Abdomen: Soft, Nontender and Positive bowel sounds Extremities: Edema- No Peripheral Pulses- Present all extremities Skin: Abnormalities- No Breakdown- No Neurologic: Sedated DATA: Diagnostic tests reviewed for today's visit: Most recent labs and imaging results. LABS: CBC, Coags, BMP, Mg, Phos Recent Labs 01/23/19 2148 WBC 11.77* HB 12.1* HCT 36.5* PLT 176 NA 145* K 3.8 CHLOR 110* CO2 25 BUN 29* CREAT 1.57* GLUC 139* CA 8.2* Liver Function, Amylase, AND Lipase Recent Labs 01/23/19 2148 TPROT 5.8* ALB 3.2* ALT 38 AST 26 ALKPHOS 58 TBILI 0.2 CULTURES: Pending CXR FINDINGS: Unremarkable chest x-ray OTHER IMAGING: Imaging from OSH uploaded to [facility] grid Notes from outside CT CT Scan- Mild prominence of the lingual tonsil. Thickened epiglottitis with gas noted. Normal bilateral vallecula and hypopharnyx. The pre-epiglottic and paraepiglottic adipose spaces are normal. Normal visualized bilateral piriform sinuses, aryepiglottic folds, vocal cords, and arytendoi-cricoid articulations. Normal subglottic trachea. Mild bilateral cervical adenopathy. ASSESSMENT AND PLAN: Pancho Lopez is a 33 y.o. M w/PMH of multiple substance abuse who presents with concern for epiglottitis. He presents with trach in place and being mechanically ventilated being treated actively for possible infection, as well as SHARON. Neurological: - Intubated and sedated 2/2 agitation at the OSH - Outside notes mention belligerence etc. when not heavily sedated, in addition to the patient being asked to be knocked out - Hx notable for polysubstance abuse including methamphetamines in the previous week PLAN: - Monitor for signs of agitation - Slowly wean sedation; restraints as needed to keep patient safe - Avoid opioids, sedatives, benzos as able Cardiovascular: - Notably hypertensive at OSH. Was controlled with hydralazine PLAN: - Control blood pressure as needed (currently normotensive with sedation going) Respiratory: - Intubated and sedated on the vent 2/2 upper airway obstruction and what appears to be epiglottitis PLAN: - No need for ongoing mechanical ventilation; decrease sedation and stop vent - Consult ENT in AM - Scope larynx for potential decannulation - if still edematous, consider switching to a 6 cuffless trach with speaking valve. Infectious Disease: - Labs at OSH notable for WBC to 32.9, granted, this was after administration of steroids. - Imaging concerning for epiglottitis - Notes mention initial treatment with zosyn, followed by vancomycin and ceftriaxone. Last notes prior to transfer show administration of unasyn. Unclear the duration of these medications or the accuracy of these notes. Improvement of WBC to 15 at OSH. PLAN: - Blood cultures x2 - Continue Unasyn - Follow CBC for WBC count - Consider ID consult for epiglottitis Endocrine - No hx of diabetes or other. - Nursing noted patient to be persistently hypotensive despite d5 1/2 NS PLAN: - d10-1/2 NS until transitioned to PO Gastrointestinal/Nutrition: PLAN: - Need to restart PO intake once awake. Fluid as above - GI PPx Renal: - Outside labs notable for SHARON. No baseline CKD. Unclear etiology but likely relates to possible severe sepsis. PLAN: - Continue to follow BMP - IVF as above - Urine Na, urine creatinine Prophylaxis: DVT PPX: Heparin 5000 u GI PPX: Protonix 40 mg qd Plan will be discussed with MICU Staff. PATIENT CHECKLIST ? Are restraints necessary: No ? Deep vein thrombosis prophylaxis administered? Yes ? Stress ulcer prophylaxis? Yes ? Nasogastric tube? No ? Agrawal catheter necessary? No ? Is central line essential? No ? Plan discussed with assigned RN? Yes ? Family updated within last 24 hours? No Bennie Donohue MD PGY1 Internal Medicine Resident Pager [phone] 9:47 PM 01/23/2019 [facility] STAFF PHYSICIAN NOTE OF PERSONAL INVOLVEMENT IN CARE I have reviewed the history and physical examination obtained and documented by the resident and I personally participated in the casiano components. I have discussed the case and management of the patient's care. The following comments revise or confirm relevant casiano components of the note. IMPRESSION: 33 y.o. M w/PMH of multiple substance abuse who presents with concern for epiglottitis. He presents with trach in place and being mechanically ventilated being treated actively for possible infection, as well as SHARON. PLAN: Acute respiratory failure: -continue current vent settings, wean as tolerated. -compromised airway due to epiglottitis. Likely to need ENT and ID input. -monitor per RT protocol -continue IV sedation. This patient has a high probability of sudden, clinically significant deterioration, which requires the highest level of physician preparedness to intervene urgently. I managed/supervised life or organ supporting interventions that required frequent physician assessment. I devoted my full attention to the direct care of this patient for the amount of time indicated below. Time I spent with family or surrogate(s) is included only if the patient was incapable of providing the necessary information or participating in medical decision making. Time devoted to teaching and to any procedures I billed separately is not included. Critical Care Documentation: The patient has the following organ/system impairment(s): Complex life-threatening medical problem(s) and Respiratory failure (Acute) Time spent providing critical care services: 30 minutes. SIGNATURE: Jose R Butler MD [facility] PAGER:[phone] DATE of SERVICE: 01/23/2019 TIME of SERVICE: 22:45-23:20 Normal [facility] Staph aureus PCRon 9 MRSA PCR Negative Normal [facility] Comment on above: Performed By: #### S APCR #### [facility] [address] [place] [address] S aureus Spec Source Nasal Normal [facility] Comment on above: Performed By: #### S APCR #### [facility] [address] [place], [place] [address] Staph aureus PCR Positive Critically abnormal [facility] Comment on above: Performed By: #### S APCR #### [facility] [address] [place] [phone] XR CHEST 1V FRONTAL PORTon 0 01-23-2019 XR CHEST 1V FRONTAL PORT * * *Final Report* * * DATE OF EXAM: Jan 23 2019 8:44PM TESFAYE [id number] - XR CHEST 1V FRONTAL PORT / PROCEDURE REASON: Shortness of breath * * * * Physician Interpretation * * * * EXAMINATION: CHEST RADIOGRAPH (PORTABLE SINGLE VIEW AP) Exam Date/Time: 01/23/2019 8:44 PM Clinical History: Shortness of breath MQ: [id number] Comparison: None available RESULT: See impression. IMPRESSION: Lines, tubes, and devices: A tracheostomy is present in expected position. Lungs and pleura: Shallow inspiration. The right hemidiaphragm is mildly elevated. Mild bibasilar opacities are probably due to atelectasis. No substantial pleural effusion. There is vascular crowding without overt pulmonary edema. No pneumothorax. Cardiomediastinal silhouette: The cardiomediastinal silhouette is mildly enlarged, likely accentuated by the shallow inspiration. Other: . Pretzel Twisting Machine Operator: PSCB Transcribe Date/Time: Jan 23 2019 9:19P Dictated by : RISHI SULLIVAN MD This examination was interpreted and the report reviewed and electronically signed by: RISHI SULLIVAN MD on Jan 23 2019 9:21PM EST [id number] Normal [facility] US-Liver IMPORTon 01-22-2019 US-Liver IMPORT Images were obtained outside of [facility] [id number] Normal [facility] SR-Soft Tissue Neck without Contr IMPORTon 01-21-2019 SR-Soft Tissue Neck without Contr IMPORT Images were obtained outside of [facility] [id number] Normal [facility] Vital Signs Date Time Vital Sign Value Performing Clinician Facility 05-30-2025 14:24-0400 Body height 179.1 cm Zenobia Queen DO Work Phone: [facility] 05-30-2025 14:24-0400 Body mass index (BMI) [Ratio] 30.27 kg/m2 Zenobia Queen DO Work Phone: [facility] 05-30-2025 14:24-0400 Body temperature 98.1 [degF] Zenobia Brode DO Work Phone: [facility] 05-30-2025 14:24-0400 Body weight 97.07 kg Zenobia Brode DO Work Phone: [facility] 05-30-2025 14:24-0400 Diastolic blood pressure 82 mm[Hg] Zenobia Brode DO Work Phone: [facility] 05-30-2025 14:24-0400 Heart rate 83 /min Zenobia Turnerde DO Work Phone: [facility] 05-30-2025 14:24-0400 SaO2% (BldA) [Mass fraction] 96 % Zenobia Turnerde DO Work Phone: [facility] 05-30-2025 14:24-0400 Systolic blood pressure 120 mm[Hg] Zenobia Queen DO Work Phone: [facility] 09-03-2024 11:51-0400 Diastolic Blood Pressure Non-Invasive 93 mm[Hg] VÍCTOR CHEN MD [facility] 09-03-2024 11:51-0400 Heart rate 107 /min VÍCTOR CHEN MD [facility] 09-03-2024 11:51-0400 Respiratory rate 16 /min VÍCTOR CHEN MD [facility] 09-03-2024 11:51-0400 Systolic Blood Pressure Non-Invasive 143 mm[Hg] VÍCTOR CHEN MD [facility] 09-03-2024 11:33-0400 Heart rate 104 /min VÍCTOR CHEN MD [facility] 09-03-2024 11:33-0400 Respiratory rate 16 /min VÍCTOR CHEN MD [facility] 09-03-2024 11:27-0400 Diastolic Blood Pressure Non-Invasive 94 mm[Hg] VÍCTOR CHEN MD [facility] 09-03-2024 11:27-0400 Heart rate 108 /min VÍCTOR CHEN MD [facility] 09-03-2024 11:27-0400 Respiratory rate 15 /min VÍCTOR CHEN MD [facility] 09-03-2024 11:27-0400 Systolic Blood Pressure Non-Invasive 148 mm[Hg] VÍCTOR CHEN MD [facility] 09-03-2024 11:22-0400 Heart rate 108 /min VÍCTOR CHEN MD [facility] 09-03-2024 11:00-0400 Diastolic Blood Pressure Non-Invasive 86 mm[Hg] VÍCTOR CHEN MD [facility] 09-03-2024 11:00-0400 Heart rate 109 /min VÍCTOR CHEN MD [facility] 09-03-2024 11:00-0400 Systolic Blood Pressure Non-Invasive 134 mm[Hg] VÍCTOR CHEN MD [facility] 09-03-2024 10:30-0400 Heart rate 112 /min VÍCTOR CHEN MD [facility] 09-03-2024 09:06-0400 Body height 198.1 cm VÍCTOR CHEN MD [facility] 09-03-2024 09:06-0400 Body temperature 99.5 [degF] VÍCTOR CHEN MD [facility] 09-03-2024 09:06-0400 Body weight 178.3 kg VÍCTOR CHEN MD [facility] 07-27-2024 10:44-0400 Blood Pressure Cuff Size ELGIN RCIHARDS MD [facility] 07-27-2024 10:44-0400 Blood Pressure Location ELGIN RICHARDS MD [facility] 07-27-2024 10:44-0400 Blood Pressure Method ELGIN RICHARDS MD [facility] 07-27-2024 10:44-0400 Body temperature 97.16 [degF] ELGIN RICHARDS MD [address] 07-27-2024 10:44-0400 Diastolic Blood Pressure Non-Invasive 101 mm[Hg] ELGIN RICHARDS MD [address] 07-27-2024 10:44-0400 Heart rate 79 /min ELGIN RICHARDS MD [facility] 07-27-2024 10:44-0400 Reason For Taking VItal Signs ELGIN RICHARDS MD [address] 07-27-2024 10:44-0400 Respiratory rate 18 /min ELGIN RICHARDS MD [facility] 07-27-2024 10:44-0400 Systolic Blood Pressure Non-Invasive 167 mm[Hg] ELGIN RICHARDS MD [facility] 07-27-2024 09:17-0400 Heart rate 112 /min ELGIN RICHARDS MD [facility] 07-27-2024 07:12-0400 Blood Pressure Cuff Size ELGIN RICHARDS MD [facility] 07-27-2024 07:12-0400 Blood Pressure Location ELGIN RICHARDS MD [address] 07-27-2024 07:12-0400 Blood Pressure Method ELGIN RICHARDS MD [facility] 07-27-2024 07:12-0400 Body temperature 98.06 [degF] ELGIN RICHARDS MD [address] [place] [address] 07-27-2024 07:12-0400 Diastolic Blood Pressure Non-Invasive 74 mm[Hg] ELGIN RICHARDS MD [address] [place] [address] 07-27-2024 07:12-0400 Heart rate 101 /min ELGIN RICHARDS MD [address] [place] [address] 07-27-2024 07:12-0400 Reason For Taking VItal Signs ELGIN RICHARDS MD [address] [place] [address] 07-27-2024 07:12-0400 Respiratory rate 18 /min ELGIN RICHARDS MD [address] [place] [address] 07-27-2024 07:12-0400 Systolic Blood Pressure Non-Invasive 158 mm[Hg] ELGIN RICHARDS MD [address] [place] [address] 07-27-2024 03:36-0400 Body temperature 97.88 [degF] ELGIN RICHARDS MD [address] [place] [address] 07-27-2024 03:36-0400 Diastolic Blood Pressure Non-Invasive 58 mm[Hg] ELGIN RICHARDS MD [address] [place] [address] 07-27-2024 03:36-0400 Reason For Taking VItal Signs ELGIN RICHARDS MD [address] [place] [address] 07-27-2024 03:36-0400 Respiratory rate 18 /min ELGIN RICHARDS MD [address] [place] [address] 07-27-2024 03:36-0400 Systolic Blood Pressure Non-Invasive 132 mm[Hg] ELGIN RICHARDS MD [address] [place] [address] 07-26-2024 22:36-0400 Blood Pressure Cuff Size ELGIN RICHARDS MD [address] [place] [address] 07-26-2024 22:36-0400 Blood Pressure Location ELGIN RICHARDS MD [address] [place] [address] 07-26-2024 22:36-0400 Blood Pressure Method ELGIN RICHARDS MD [facility] 07-26-2024 19:25-0400 Mean blood pressure 102 mm[Hg] ELGIN RICHARDS MD [facility] 07-26-2024 17:20-0400 Mean blood pressure 90 mm[Hg] ELGIN RICHARDS MD [facility] 07-26-2024 17:04-0400 Mean blood pressure 101 mm[Hg] ELGIN RICHARDS MD [facility] 07-25-2024 19:52-0400 Body height 198.1 cm ELGIN RICHARDS MD [address] [place] [address] 07-25-2024 19:52-0400 Body weight 180.2 kg ELGIN RICHARDS MD [facility] 07-25-2024 19:52-0400 Body weight 45.92 kg/m2 ELGIN RICHARDS MD [facility] 07-25-2024 18:33-0400 Diastolic Blood Pressure Non-Invasive 86 mm[Hg] EDILMA RUBY MD [facility] 07-25-2024 18:33-0400 Heart rate 91 /min EDILMA RUBY MD [facility] 07-25-2024 18:33-0400 Reason For Taking VItal Signs EDILMA RUBY MD [facility] 07-25-2024 18:33-0400 Respiratory rate 24 /min EDILMA RUBY MD [facility] 07-25-2024 18:33-0400 Systolic Blood Pressure Non-Invasive 159 mm[Hg] EDILMA RUBY MD [facility] 07-25-2024 18:00-0400 Diastolic Blood Pressure Non-Invasive 96 mm[Hg] EDILMA RUBY MD [facility] 07-25-2024 18:00-0400 Heart rate 101 /min EDILMA RUBY MD [facility] 07-25-2024 18:00-0400 Systolic Blood Pressure Non-Invasive 167 mm[Hg] EDILMA RUBY MD [facility] 07-25-2024 17:14-0400 Diastolic Blood Pressure Non-Invasive 93 mm[Hg] EDILMA RUBY MD [facility] 07-25-2024 17:14-0400 Systolic Blood Pressure Non-Invasive 157 mm[Hg] EDILMA RUBY MD [facility] 07-25-2024 15:00-0400 Heart rate 99 /min EDILMA RUBY MD [facility] 07-25-2024 15:00-0400 Respiratory rate 22 /min EDILMA RUBY MD [facility] 07-25-2024 12:27-0400 Blood Pressure Method EDILMA RUBY MD [facility] 07-25-2024 12:04-0400 Blood Pressure Location EDILMA RUBY MD [facility] 07-25-2024 12:04-0400 Blood Pressure Method EDILMA RUBY MD [facility] 07-25-2024 12:04-0400 Body temperature 97.16 [degF] EDILMA RUBY MD [facility] 07-25-2024 12:04-0400 Body weight 180.4 kg EDILMA RUBY MD [facility] 07-25-2024 12:04-0400 Heart rate 114 /min EDILMA RUBY MD [facility] 06-01-2024 17:35-0400 Diastolic Blood Pressure Non-Invasive 94 mm[Hg] MIKA PIPER MD [facility] 06-01-2024 17:35-0400 Heart rate 81 /min MIKA PIPER MD [facility] 06-01-2024 17:35-0400 Mean blood pressure 112 mm[Hg] MIKA PIPER MD [facility] 06-01-2024 17:35-0400 Respiratory rate 18 /min MIKA PIPER MD [facility] 06-01-2024 17:35-0400 Systolic Blood Pressure Non-Invasive 151 mm[Hg] MIKA PIPER MD [facility] 06-01-2024 15:27-0400 Body height 198.1 cm MIKA PIPER MD [facility] 06-01-2024 15:27-0400 Body temperature 98.06 [degF] MIKA PIPER MD [facility] 06-01-2024 15:27-0400 Body weight 173 kg MIKA PIPER MD [facility] 06-01-2024 15:27-0400 Diastolic Blood Pressure Non-Invasive 112 mm[Hg] MIKA PIPER MD [facility] 06-01-2024 15:27-0400 Heart rate 114 /min MIKA PIPER MD [facility] 06-01-2024 15:27-0400 Respiratory rate 20 /min MIKA PIPER MD [facility] 06-01-2024 15:27-0400 Systolic Blood Pressure Non-Invasive 188 mm[Hg] MIKA PIPER MD [facility] 03-24-2024 21:41-0400 Diastolic Blood Pressure Non-Invasive 89 mm[Hg] MICHAEL OTOOLE DO [facility] 03-24-2024 21:41-0400 Systolic Blood Pressure Non-Invasive 130 mm[Hg] MICHAEL OTOOLE DO [facility] 07-18-2023 15:35-0400 Blood Pressure Cuff Size PERICO RODRIGUEZ MD [facility] 07-18-2023 15:35-0400 Blood Pressure Location PERICO RODRIGUEZ MD [facility] 07-18-2023 15:35-0400 Blood Pressure Method PERICO RODRIGUEZ MD [facility] 07-18-2023 15:35-0400 Body temperature 97.88 [degF] PERICO RODRIGUEZ MD [facility] 07-18-2023 15:35-0400 Diastolic Blood Pressure Non-Invasive 108 1 PERICO RODRIGUEZ MD [facility] 07-18-2023 15:35-0400 Heart rate 74 /min PERICO RODRIGUEZ MD [facility] 07-18-2023 15:35-0400 Mean blood pressure 120 mm[Hg] PERICO RODRIGUEZ MD [facility] 07-18-2023 15:35-0400 Reason For Taking VItal Signs PERICO RODRIGUEZ MD [facility] 07-18-2023 15:35-0400 Respiratory rate 18 /min PERICO RODRIGUEZ MD [facility] 07-18-2023 15:35-0400 Systolic Blood Pressure Non-Invasive 149 1 PERICO RODRIGUEZ MD [address] [place] [address] 07-18-2023 14:59-0400 Heart rate 68 /min PERICO RODRIGUEZ MD [address] [place] [address] 07-18-2023 10:28-0400 Blood Pressure Cuff Size PERICO RODRIGUEZ MD [address] [place] [address] 07-18-2023 10:28-0400 Blood Pressure Location PERICO RODRIGUEZ MD [address] [place] [address] 07-18-2023 10:28-0400 Blood Pressure Method PERICO RODRIGUEZ MD [address] [place] [address] 07-18-2023 10:28-0400 Body temperature 98.6 [degF] PERICO RODRIGUEZ MD [address] [place] [address] 07-18-2023 10:28-0400 Diastolic Blood Pressure Non-Invasive 95 1 PERICO RODRIGUEZ MD [address] [place] [address] 07-18-2023 10:28-0400 Heart rate 82 /min PERICO RODRIGUEZ MD [address] [place] [address] 07-18-2023 10:28-0400 Mean blood pressure 109 mm[Hg] PERICO RODRIGUEZ MD [address] [place] [address] 07-18-2023 10:28-0400 Reason For Taking VItal Signs PERICO RODRIGUEZ MD [address] [place] [address] 07-18-2023 10:28-0400 Respiratory rate 20 /min PERICO RODRIGUEZ MD [address] [place] [address] 07-18-2023 10:28-0400 Systolic Blood Pressure Non-Invasive 143 1 PERICO RODRIGUEZ MD [address] [place] [address] 07-18-2023 06:48-0400 Blood Pressure Cuff Size PERICO RODRIGUEZ MD [address] [place] [address] 07-18-2023 06:48-0400 Blood Pressure Location PERICO RODRIGUEZ MD [address] [place] [address] 07-18-2023 06:48-0400 Blood Pressure Method PERICO RODRIGUEZ MD [address] [place] [address] 07-18-2023 06:48-0400 Body temperature 98.24 [degF] PERICO RODRIGUEZ MD [address] [place] [address] 07-18-2023 06:48-0400 Diastolic Blood Pressure Non-Invasive 99 1 PERICO RODRIGUEZ MD [address] [place] [address] 07-18-2023 06:48-0400 Mean blood pressure 113 mm[Hg] PERICO RODRIGUEZ MD [address] [place] [address] 07-18-2023 06:48-0400 Reason For Taking VItal Signs PERICO RODRIGUEZ MD [address] [place] [address] 07-18-2023 06:48-0400 Respiratory rate 18 /min PERICO RODRIGUEZ MD [address] [place] [address] 07-18-2023 06:48-0400 Systolic Blood Pressure Non-Invasive 146 1 PERICO RODRIGUEZ MD [address] [place] [address] 07-16-2023 19:20-0400 Heart rate 87 /min PERICO RODRIGUEZ MD [address] [place] [address] 07-16-2023 08:07-0400 Heart rate 80 /min PERICO RODRIGUEZ MD [address] [place] [address] 07-16-2023 07:46-0400 Heart rate 82 /min PERICO RODRIGUEZ MD [address] [place] [address] 07-16-2023 04:07-0400 Body height 198.1 cm PERICO RODRIGUEZ MD [address] [place] [address] 07-16-2023 04:07-0400 Body weight 146.9 kg PERICO RODRIGUEZ MD [facility] 07-16-2023 04:07-0400 Body weight 37.43 kg/m2 PERICO RODRIGUEZ MD [facility] 07-16-2023 04:05-0400 Heart rate 78 /min PERICO RODRIGUEZ MD [facility] 07-16-2023 02:59-0400 Body temperature 98.1 [degF] No Primary Care Physician [facility] 07-16-2023 02:59-0400 Diastolic blood pressure 82 mm[Hg] No Primary Care Physician [facility] 07-16-2023 02:59-0400 Heart rate 71 /min No Primary Care Physician [facility] 07-16-2023 02:59-0400 Respiratory rate 18 /min No Primary Care Physician [facility] 07-16-2023 02:59-0400 SaO2% (BldA) [Mass fraction] 95 % No Primary Care Physician [facility] 07-16-2023 02:59-0400 Systolic blood pressure 119 mm[Hg] No Primary Care Physician [facility] 07-15-2023 10:12-0400 Body height 198.12 cm No Primary Care Physician [facility] 07-15-2023 10:12-0400 Body mass index (BMI) [Ratio] 38.7 kg/m2 No Primary Care Physician [facility] 07-15-2023 10:12-0400 Body weight 152.2 kg No Primary Care Physician [facility] 07-13-2023 16:04-0400 Body temperature 98.42 [degF] DR MICHAEL PIZANO MD [facility] 07-13-2023 16:04-0400 Diastolic Blood Pressure Non-Invasive [address] MICHAEL PIZANO MD [facility] 07-13-2023 16:04-0400 Heart rate 83 /min DR MICHAEL PIZANO MD [facility] 07-13-2023 16:04-0400 Mean blood pressure 105 mm[Hg] DR MICHAEL PIZANO MD [address] 07-13-2023 16:04-0400 Reason For Taking VItal Signs DR MICHAEL PIZANO MD [address] [place] [address] 07-13-2023 16:04-0400 Respiratory rate 18 /min DR MICHAEL PIZANO MD [address] [place] [address] 07-13-2023 16:04-0400 Systolic Blood Pressure Non-Invasive [address] MICHAEL PIZANO MD [address] [place] [address] 07-13-2023 11:16-0400 Body temperature 98.06 [degF] DR MICHAEL PIZANO MD [address] [place] [address] 07-13-2023 11:16-0400 Diastolic Blood Pressure Non-Invasive [address] MICHAEL PIZANO MD [address] [place] [address] 07-13-2023 11:16-0400 Heart rate 87 /min DR MICHAEL PIZANO MD [address] [place] [address] 07-13-2023 11:16-0400 Mean blood pressure 101 mm[Hg] DR MICHAEL PIZANO MD [address] [place] [address] 07-13-2023 11:16-0400 Reason For Taking VItal Signs DR MICHAEL PIZANO MD [address] [place] [address] 07-13-2023 11:16-0400 Respiratory rate 18 /min DR MICHAEL PIZANO MD [address] [place] [address] 07-13-2023 11:16-0400 Systolic Blood Pressure Non-Invasive [address] MICHAEL PIZANO MD [address] [place] [address] 07-13-2023 08:20-0400 Heart rate 89 /min DR MICHAEL PIZANO MD [address] [place] [address] 07-13-2023 08:07-0400 Body temperature 98.06 [degF] DR MICHAEL PIZANO MD [address] [place] [address] 07-13-2023 08:07-0400 Diastolic Blood Pressure Non-Invasive [address] MICHAEL PIZANO MD [address] [place] [address] 07-13-2023 08:07-0400 Heart rate 95 /min DR MICHAEL PIZANO MD [address] [place] [address] 07-13-2023 08:07-0400 Mean blood pressure 123 mm[Hg] DR MICHAEL PIZANO MD [address] [place] [address] 07-13-2023 08:07-0400 Reason For Taking VItal Signs DR MICHAEL PIZANO MD [address] [place] [address] 07-13-2023 08:07-0400 Respiratory rate 20 /min DR MICHAEL PIZANO MD [address] [place] [address] 07-13-2023 08:07-0400 Systolic Blood Pressure Non-Invasive [address] MICHAEL PIZANO MD [address] [place] [address] 07-13-2023 04:20-0400 Blood Pressure Cuff Size DR MICHAEL PIZANO MD [address] [place] [address] 07-13-2023 04:20-[address] MICHAEL PIZANO MD [address] [place] [address] 07-13-2023 04:20-[address] MICHAEL PIZANO MD [address] [place] [address] 07-12-2023 22:57-0400 Blood Pressure Cuff Size DR MICHAEL PIZANO MD [address] [place] [address] 07-12-2023 22:57-[address] MICHAEL PIZANO MD [address] [place] [address] 07-12-2023 22:57-[address] MICHAEL PIZANO MD [address] [place] [address] 07-12-2023 15:51-0400 Blood Pressure Cuff Size DR MICHAEL PIZANO MD [address] [place] [address] 07-12-2023 15:51-[address] MICHALE PIZANO MD [address] [place] [address] 07-12-2023 15:51-[address] MICHAEL PIZANO MD [facility] 07-12-2023 07:02-0400 Heart rate 95 /min DR MICHAEL PIZANO MD [facility] 07-11-2023 22:42-0400 Heart rate 94 /min DR MICHAEL PIZANO MD [facility] 07-11-2023 03:21-0400 Body height 198.[address] MICHAEL PIZANO MD [facility] 07-11-2023 03:21-0400 Body weight 153.[address] MICHAEL PIZANO MD [facility] 07-11-2023 03:21-0400 Body weight 39.11 kg/m2 DR MICHAEL PIZANO MD [facility] 07-11-2023 02:20-0400 Diastolic Blood Pressure Non-Invasive 121 1 EDILMA RUBY MD [facility] 07-11-2023 02:20-0400 Heart rate 99 /min EDILMA RUBY MD [facility] 07-11-2023 02:20-0400 Respiratory rate 20 /min EDILMA RUBY MD [facility] 07-11-2023 02:20-0400 Systolic Blood Pressure Non-Invasive 165 1 EDILMA RUBY MD [facility] 07-11-2023 02:01-0400 Diastolic Blood Pressure Non-Invasive 121 1 EDILMA RUBY MD [facility] 07-11-2023 02:01-0400 Heart rate 99 /min EDILMA RUBY MD [facility] 07-11-2023 02:01-0400 Systolic Blood Pressure Non-Invasive 165 1 EDILMA RUBY MD [facility] 07-11-2023 01:23-0400 Diastolic Blood Pressure Non-Invasive 113 1 EDILMA RUBY MD [facility] 07-11-2023 01:23-0400 Systolic Blood Pressure Non-Invasive 153 1 EDILMA RUBY MD [facility] 07-11-2023 01:21-0400 Heart rate 96 /min EDILMA RUBY MD [facility] 07-11-2023 01:21-0400 Respiratory rate 20 /min EDILMA RUBY MD [facility] 07-10-2023 22:09-0400 Body height 198 cm EDILMA RUBY MD [facility] 07-10-2023 22:09-0400 Body temperature 98.6 [degF] EDILMA RUBY MD [facility] 07-10-2023 22:09-0400 Body weight 136 kg EDILMA RUBY MD [facility] 07-10-2023 22:09-0400 Respiratory rate 22 /min EDILMA RUBY MD [facility] 06-09-2023 08:01-0400 Body mass index (BMI) [Ratio] 29.92 kg/m2 Luis Walsh MD Work Phone: [facility] 06-09-2023 08:01-0400 Body temperature 98.01 [degF] Luis Walsh MD Work Phone: [facility] 06-09-2023 08:01-0400 Body weight 95.25 kg Luis Walsh MD Work Phone: [facility] 06-09-2023 08:01-0400 Diastolic blood pressure 76 mm[Hg] Luis Walsh MD Work Phone: [facility] 06-09-2023 08:01-0400 Heart rate 77 /min Luis Walsh MD Work Phone: [facility] 06-09-2023 08:01-0400 SaO2% (BldA) [Mass fraction] 99 % Luis Walsh MD Work Phone: [facility] 06-09-2023 08:01-0400 Systolic blood pressure 120 mm[Hg] Luis Walsh MD Work Phone: [facility] 11-25-2019 09:08-0500 BMI (Body Mass Index) 26.69 kg/m2 Luis Walsh [facility] Work Phone: 11-25-2019 09:08-0500 Body weight 84.99 kg Luis Walsh [facility] Work Phone: 11-25-2019 09:08-0500 BP Diastolic 84 mm[Hg] Luis Walsh [facility] Work Phone: Comment on above: Location: LUE; Position: Sitting 11-25-2019 09:08-0500 BP Systolic 130 mm[Hg] Luis Walsh [facility] Work Phone: Comment on above: Location: LUE; Position: Sitting 11-25-2019 09:08-0500 BSA (Body Surface Area) 2.04 m2 Luis Walsh [facility] Work Phone: 11-25-2019 09:08-0500 Height 178.44 cm Luis Walsh [facility] Work Phone: Encounters Encounter Date Encounter Type Care Provider Facility Start: 08-07-2025 End: 08-07-2025 Emergency department patient visit MIKA PIPER MD [facility] Start: 07-04-2025 End: 07-04-2025 ambulatory MICHAEL OTOOLE DO [facility] Start: 07-04-2025 End: 07-04-2025 Patient encounter procedure MICHAEL Akiko OTOOLE DO [facility] Start: 07-04-2025 End: 07-04-2025 Well adult monitoring check done MICHAEL Akiko XIANG CH [facility] Start: 06-26-2025 End: 06-26-2025 Emergency department patient visit LUIS VEGA DO [facility] Start: 06-06-2025 End: 06-06-2025 ambulatory MICHAEL OTOOLE DO Facility[facility] Start: 06-06-2025 End: 06-06-2025 Patient encounter procedure MICHAEL Akiko XIANG CH [facility] Start: 05-30-2025 End: 05-30-2025 Patient encounter status Zenobia Queen DO Work Phone: [facility] Work Phone: Start: 05-30-2025 End: 05-30-2025 Periodic preventive med est patient 18-39 yrs Zenobia Bernice CH Work Phone: [facility] Comment on above: Routine general medi margaret examination at a health care facility (Primary Dx); Lipid screening; Screening for diabetes mellitus Start: 05-30-2025 End: 05-30-2025 ambulatory [facility] Start: 05-30-2025 End: 05-30-2025 Encounter for general adult medical examination without abnormal findings [facility] Start: 09-03-2024 End: 09-03-2024 Emergency department patient visit VÍCTOR CHEN MD [facility] Start: 07-25-2024 End: 07-27-2024 Evaluation and management of inpatient ELGIN RICHARDS MD [facility] Start: 07-25-2024 End: 07-25-2024 Emergency department patient visit EDILMA RUBY MD [facility] Start: 06-01-2024 End: 06-01-2024 Emergency department patient visit MIKA PIPER MD [facility] Start: 04-12-2024 End: 04-12-2024 ambulatory MICHAEL OTOOLE DO Facility:[facility] Start: 04-12-2024 End: 04-12-2024 Patient encounter procedure MICHAEL OTOOLE DO [facility] Start: 03-24-2024 End: 03-24-2024 ambulatory MICHAEL OTOOLE DO Facility:[facility] Start: 03-24-2024 End: 03-24-2024 Patient encounter procedure MICHAEL OTOOLE DO [facility] Start: 03-20-2024 End: 03-20-2024 ambulatory MICHAEL OTOOLE DO Facility:[facility] Start: 03-20-2024 End: 03-20-2024 Patient encounter procedure MICHAEL OTOOLE DO [facility] Start: 12-02-2023 End: 12-02-2023 ambulatory PAVEL PEREZ MD Facility:[facility] Start: 12-02-2023 End: 12-02-2023 Patient encounter procedure PAVEL PEREZ MD [facility] Start: 11-06-2023 ambulatory LISSETH CHOPRA APRN-[facility] Fa cility:[facility] Start: 11-06-2023 End: 11-30-2024 Lab-Standing Order LISSETH CHOPRA POLARITY TESTER-[employer] Start: 09-23-2023 ambulatory PAVEL PEREZ MD Facili ty:[facility] Start: 09-22-2023 End: 09-22-2023 ambulatory LISSETH GONSALESITA POLARITY TESTER[employer] Facility:[facility] Start: 09-22-2023 End: 09-22-2023 Patient encounter procedure LISSETH CHOPRA POLARITY TESTER[employer] Start: 08-29-2023 End: 08-29-2023 ambulatory LISSETH CHOPRA POLARITY TESTER[employer] Facility:[facility] Start: 08-29-2023 End: 08-29-2023 Patient encounter procedure LISSETH CHOPRA POLARITY TESTER[employer] [facility] Start: 07-16-2023 End: 07-18-2023 ambulatory PERICO RODRIGUEZ MD Facility:[facility] Start: 07-16-2023 End: 07-18-2023 Observation PERICO RODRIGUEZ MD [facility] Start: 07-16-2023 Non-patient / Non-visit No [facility] Work Phone: Start: 07-15-2023 End: 07-16-2023 Emergency department patient visit No Primary Care Physician [facility] Work Phone: Start: 07-11-2023 End: 07-13-2023 Evaluation and management of inpatient DR MICHAEL PIZANO MD [facility] Start: 07-10-2023 End: 07-11-2023 Emergency department patient visit EDILMA RUBY MD [facility] Start: 06-09-2023 End: 06-09-2023 Office outpatient visit 15 minutes Luis Walsh MD Work Phone: [facility] Comment on above: Rectal bleeding (Kendra colón Dx) Start: 11-25-2019 Patient encounter procedure Luis Walsh [facility] Work Phone: Start: 01-30-2019 End: 01-31-2019 Patient encounter procedure BERT ZIMMERURG [facility] Start: 01-23-2019 End: 01-30-2019 Evaluation and management of inpatient NIKKO CHOI [facility] Start: 04-30-2018 Patient encounter procedure Luis Walsh [facility] Work Phone: Procedures Date Procedure Procedure Detail Performing Clinician Start: 12-02-2023 Echocardiography MICHAEL OTOOLE DO Comment on above: 1. Left ventricle: T he cavity size is normal. Wall thickness is normal. Systolic function is mildly to moderately reduced. The estimated ejection fraction is 40-45%. Hypokinesis of the apical anteroseptal, anterior, anterolateral, inferolateral, and apical myocardium. Grade I diastolic dysfunction. 2. Mitral valve: The annulus is mildly to moderately calcified. 3. Right atrium: The atrium is dilated. Start: 07-15-2023 Measurement of occul t blood in stool specimen using immunoassay No Primary Care Physician Start: 07-15-2023 Computed tomography of abdomen and pelvis with intravenous contrast No Primary Care Physician Start: 07-15-2023 CT angiography of ch est with contrast No Primary Care Physician Start: 07-15-2023 Plain chest X-ray No Pr imary Care Physician Start: 11-25-2019 Acute hepatitis panel C julia Walsh Start: 11-25-2019 Antibody hiv-1 Luis Walsh Start: 11-25-2019 CBC W Auto Different ial panel - Blood Luis Walsh Start: 11-25-2019 Comprehensive metabo lic 2000 panel Luis Walsh Start: 11-25-2019 Lipid panel Luis Shepherd [facility]Callum Start: 11-25-2019 SYPHILIS SCREENING W ITH REFLEX Luis Walsh Start: 11-25-2019 Lipid 1996 panel - S ulysses or Plasma Luis Walsh MD Work Phone: Entire gallbladder ( body structure) EDILMA RUBY MD History of placement of stent for coronary artery disease H/O heart artery stent No Primary Care Physician Stent, device (physi margaret object) EDILMA RUBY MD Plan of Treatment Date Care Activity Detail Author Start: 2036 Zoster Vaccines (1 of 2) Zoste r Vaccines (1 of 2) [facility] Start: 05-31-2026 Yearly Adult Physical Yearly Adult P hysical [facility] Start: 07-11-2025 Influenza vaccination Influenza Vacc ine (#1) [facility] Start: 05-30-2025 End: 05-30-2026 CBC panel - Blood by Automated count CBC Lab Routine Lipid screening Screening for diabetes mellitus Expected: 05/30/2025 (Approximate), Expires: 05/30/2026 [facility] Work Phone: Comment on above: Expected: 05/30/2025 (Approximate), Expires: 05/30/2026 Start: 05-30-2025 End: 05-30-2026 Comprehensive metabolic 2000 panel - Serum or Plasma Comprehensive Metabolic Panel Lab Routine Lipid screening Screening for diabetes mellitus Expected: 05/30/2025 (Approximate), Expires: 05/30/2026 [facility] Work Phone: Comment on above: Expected: 05/30/2025 (Approximate), Expires: 05/30/2026 Start: 05-30-2025 End: 05-30-2026 Hemoglobin A1c/Hemoglobin.total in Blood Hemoglobin A1C Lab Routine Lipid screening Screening for diabetes mellitus Expected: 05/30/2025 (Approximate), Expires: 05/30/2026 [facility] Work Phone: Comment on above: Expected: 05/30/2025 (Approximate), Expires: 05/30/2026 Start: 05-30-2025 End: 05-30-2026 Lipid 1996 panel - Serum or Plasma Lipid Panel Lab Routine Lipid screening Screening for diabetes mellitus Expected: 05/30/2025 (Approximate), Expires: 05/30/2026 [facility] Service Area Work Phone: Comment on above: Expected: 05/30/2025 (Approximate), Expires: 05/30/2026 Start: 11-25-2024 Lipid panel Lipid Panel [facility] Start: 07-11-2024 COVID-19 Vaccine ( season) COVID-19 Vaccine ( season) [facility] Start: [facility] Start: 07-11-2023 Influenza vaccination Influenza Vacc ine (#1) [facility] Start: 10-31-2022 COVID-19 Vaccine (4 - Booster for Moderna series) COVID-19 Vaccine (4 - Booster for Moderna series) [facility] Start: 09-27-2021 DTaP/Tdap/Td Vaccine s (2 - Td or Tdap) DTaP/Tdap/Td Vaccines (2 - Td or Tdap) [facility] Start: 11-25-2020 Creatinine measurement Creatinine Le maryam [facility] Start: 11-25-2020 Diabetes mellitus screening Diabetes Screening [facility] Start: 11-25-2020 Potassium measurement Potassium Leve l [facility] Start: 2013 HPV Vaccines (1 - 3- dose standard series) HPV Vaccines (1 - 3-dose standard series) [facility] Start: 10-25-2011 IPV Vaccines (2 of 3 - Adult catch-up series) IPV Vaccines (2 of 3 - Adult catch-up series) [facility] Start: 10-25-2011 MMR Vaccines (1 of 1 - Standard series) MMR Vaccines (1 of 1 - Standard series) [facility] Start: 10-25-2011 [facility] 2005 Pneumococcal Vaccine : Pediatrics and At-Risk Adult Patients (1 of 2 - PCV) Pneumococcal Vaccine: Pediatrics and At-Risk Adult Patients (1 of 2 - PCV) [facility] Start: 2004 Diabetes mellitus screening Diabetes Screening [facility] Start: 1986 Echocardiography Echocardiogram [facility] Start: 1986 Yearly Adult Physical Yearly Adult P hysical [facility] Patient referral [facility] Work Phone: Immunizations Immunization Date Immunization Notes Care Provider Fa constance 10-31-2023 influenza virus vacc ine, unspecified formulation MCIHAEL OTOOLE DO [facility] 10-31-2023 Influenza, injectabl e, Madin Eliana Canine Kidney, preservative free, quadrivalent Zenobiadelon Queen DO Work Phone: [facility] Work Phone: 10-31-2023 SARS-CoV-2 (COVID-19 ) [id number] MICHAEL OTOOLE DO [facility] 09-05-2022 Moderna COVID-19 vaccine, bivalent, blue cap/rogers label *Check age/dose* Luis Walsh MD Work Phone: [facility] Work Phone: 09-05-2022 SARS-CoV-2 (CV19)mRNA-1273 bivalent vac MICHAEL OTOOLE DO [facility] 09-02-2022 influenza, injectabl e, quadrivalent, preservative free Luis Walsh MD Work Phone: [facility] Work Phone: 09-02-2022 influenza virus vacc ine, unspecified formulation Luis Walsh MD Work Phone: [facility] 10-31-2021 influenza virus vacc ine, unspecified formulation MICHAEL OTOOLE DO [facility] 10-31-2021 Influenza, injectabl e, Madin [place] Canine Kidney, quadrivalent with preservative Luis Walsh MD Work Phone: [facility] Work Phone: 10-31-2021 SARS-CoV-2 (COVID-19 ) mRNA-1273 vaccine MICHAEL OTOOLE DO [facility] 03-13-2021 SARS-CoV-2 (COVID-19 ) mRNA-1273 vaccine MICHAEL OTOOLE DO [facility] 02-13-2021 SARS-CoV-2 (COVID-19 ) mRNA-1273 vaccine MICHAEL OTOOLE DO [facility] 01-24-2019 influenza virus vacc ine, unspecified formulation MICHAEL OTOOLE DO [facility] 01-24-2019 influenza, injectabl e, quadrivalent, preservative free Luis Walsh MD Work Phone: [facility] Work Phone: 12-26-2018 influenza virus vacc ine, unspecified formulation MICHAEL OTOOLE DO [facility] 12-26-2018 influenza, injectabl e, quadrivalent, preservative free Luis Walsh MD Work Phone: [facility] Work Phone: 04-03-2012 hepatitis A vaccine, adult dosage Luis Walsh MD Work Phone: [facility] Work Phone: 04-03-2012 hepatitis B vaccine, adult dosage Luis Walsh MD Work Phone: [facility] Work Phone: 10-28-2011 hepatitis B vaccine, adult dosage Luis Walsh MD Work Phone: [facility] Work Phone: 09-27-2011 adenovirus, type 4 a nd type 7, live, oral MICHAEL OTOOLE DO [facility] 09-27-2011 hepatitis A vaccine, adult dosage Luis Walsh MD Work Phone: [facility] Work Phone: 09-27-2011 hepatitis B vaccine, adult dosage Luis Walsh MD Work Phone: [facility] Work Phone: 09-27-2011 influenza virus vacc ine, live, attenuated, for intranasal use Luis Walsh MD Work Phone: [facility] Work Phone: 09-27-2011 influenza virus vacc ine, unspecified formulation MICHAEL OTOOLE DO [facility] 09-27-2011 poliovirus vaccine, inactivated Luis Walsh MD Work Phone: [facility] Work Phone: 09-27-2011 tetanus toxoid, redu sree diphtheria toxoid, and acellular pertussis vaccine, adsorbed Luis Walsh MD Work Phone: [facility] Work Phone: 09-27-2011 typhoid capsular polysaccharide vaccine Luis Walsh MD Work Phone: [facility] Work Phone: 09-27-2011 poliovirus vaccine, unspecified formulation Zenobia Queen DO Work Phone: [facility] Work Phone: 11-21-2009 novel Influenza-H1N1 -09, live virus for nasal administration Luis Walsh MD Work Phone: [facility] Work Phone: Payers Date Payer Category Payer Medicaid [id number] 2024 Self-pay [id number] 2023 Managed Care (Private) [facility] [id number] 2023 Private Health Insurance [id number] 2023 Unknown [id number] 2023 Unknown [id number] 2022 Private Health Insurance [id number] 2010 Unknown [facility] [id number] 1986 Unknown [id number] 2.16.840.1.553281.3.579.2. 1986 Unknown [id number] 2.16.840.1.199131.3.579.2. 1986 Unknown [id number] 2.16840.1.319344.3.579.2 1986 Unknown [id number] 2.16840.1.358871.3.579.2. 1986 Unknown [id number] 2.16.840.1.464506.3.579.2 1986 Unknown [id number] 2.16840.1.851291.3.579.2. 627 1986 Unknown [id number] 2.16840.1.688451.3.579.2. 627 1986 Unknown [id number] 2.16.840.1.575306.3.579.2. 627 1986 Unknown [id number] 2.16.840.1.422518.3.579.2. 627 1986 Unknown [id number] 2.16.840.1.529832.3.579.2. 627 1986 Unknown [id number] 2.16.840.1.154810.3.579.2. 627 1986 Unknown [id number] 2.16.840.1.157678.3.579.2. 627 1986 Unknown [id number] 2.16.840.1.471472.3.579.2. 627 1986 Unknown [id number] 2.16.840.1.904884.3.579.2. 1244 1986 Unknown [id number] 2.16.840.1.550341.3.579.2. 627 1986 Unknown [id number] 2.16.840.1.869885.3.579.2. 627 1986 Unknown [id number] 2.16.840.1.120221.3.579.2. 627 1986 Unknown [id number] 2.16.840.1.349675.3.579.2. 627 1986 Unknown [id number] 2.16.840.1.518004.3.579.2. 627 Social History Date Type Detail Facility Assertion Unknown if ever smoked [facility] Work Phone: Start: 06-05-2023 [facility] Work Phone: Start: 06-05-2023 Tobacco use and exposure Smokeless tobacco non-user [facility] Work Phone: Start: 06-09-2023 Alcohol intake Current drinke r of alcohol (finding) [facility] Work Phone: Start: 06-09-2023 End: 05-30-2025 Alcohol intake [facility] Work Phone: Start: 06-09-2023 End: 05-30-2025 Tobacco use panel [facility] Work Phone: Start: 1985 Sex Assigned At Not on file U [facility] Work Phone: Start: 05-30-2023 End: 06-09-2023 Exposure to SARS-CoV-2 (event) Not sure [facility] Start: 07-10-2023 Tobacco smoking status Light t obacco smoker (finding) [facility] Sex Assigned At [facility] Start: 07-16-2023 Tobacco smoking stat us NHIS Unknown if ever smoked [facility] Start: 01-22-2019 Heavy [facility] Start: 01-22-2019 None [facility] Start: 01-22-2019 Alone [facility] Start: 04-10-2020 Cigarettes [facility] Start: 1985 Sex Assigned At Male [facility] Start: 07-25-2024 Tobacco smoking status Heavy t obacco smoker (finding) [facility] Start: 12-19-2005 Sex Male (finding) [facility] Start: 05-30-2025 Alcoholic beverage intake Ex-drinker (finding) [facility] Work Phone: Start: 10-05-2022 Sex Male [facility] Functional Status Date Assessment Result Facility 05-30-2025 Patient Health Questionnaire 2 item (PHQ-2) [Reported] [facility] Work Phone: 09-03-2024 Functional Status Independent [facility] 09-03-2024 Functional Status Activity Statu s ADL Urinal provided [facility] 09-03-2024 Functional Status Standard Safet y ID band on, Call device within reach, Bed in low position, Wheels locked, Visitor at bedside [facility] 07-27-2024 Functional Status Room check performed [facility] 07-27-2024 Functional [facility] 07-27-2024 [facility] 07-27-2024 Functional Status [facility] 07-26-2024 Functional Status Apartment [facility] 07-26-2024 Functional Status NPO Status Maintained A [facility] 07-26-2024 Functional Status Ambulation Amb ulation in Room [facility] 07-25-2024 Functional Status ID band on, Call device within reach, Bed in low position, Wheels locked, Bedside Cart Locked, Safety level maintained [facility] 06-01-2024 Functional Status Independent Mary [facility] 03-24-2024 Functional Status Sensory Deficits None A [facility] 07-18-2023 Functional Status bilateral knee high removed/off [facility] 07-18-2023 Functional Status Room check performed [facility] 07-18-2023 Functional Status [facility] 07-18-2023 Functional Status [facility] 07-18-2023 Functional Status [facility] 07-18-2023 Functional Status [facility] 07-17-2023 Functional Status Independent [facility] 07-17-2023 Functional Status Lunch Percent 100 [facility] 07-17-2023 Functional Status Bath cloths [facility] 07-16-2023 Functional Status [facility] 07-13-2023 Functional Status Room check performed [facility] 07-13-2023 Functional Status [facility] 07-13-2023 Functional Status [facility] 07-13-2023 Functional Status [facility] 07-13-2023 Functional Status [facility] 07-13-2023 Functional Status [facility] 07-12-2023 Functional Status [facility] 07-12-2023 Functional Status Independent [facility] 07-12-[facility]23 [facility] Functional Status Nurse Ayaka Anne green q2hrs Performed 11pm-3am [facility] 07-11-2023 Functional Status [facility] 07-11-2023 Functional Status Sensory Deficits None A [facility] 07-11-2023 Functional Status [facility] NEGATED: Highlighted row Functional performance Functional status health issues are not documented Disease [facility] Work Phone: Mental Status Date Assessment Result Facility 09-03-2024 Mental Status Orientation Orie nted x 4 [facility] 07-27-2024 Mental Status Orientation Orie nted x 4 [facility] 07-26-2024 Mental Status [facility] 07-26-2024 Mental Status [facility] 07-26-2024 [facility] Status [facility] 07-25-2024 Mental Status Orientation Orie nted x 4 [facility] 07-25-2024 Mental Status [facility] 06-01-2024 Mental Status Orientation Orie nted x 4 [facility] 07-18-2023 Mental Status Oriented x 4 [facility] 07-18-2023 Mental Status [facility] 07-17-2023 Mental Status [facility] 07-15-2023 Cognitive function Voice/Name [facility] Work Phone: 07-13-2023 Mental Status Orientation Orie nted x 4 [facility] 07-13-2023 [facility]-13[facility] 07-13-2023 Mental Status Orientation Asse ssment Oriented x [address] [place] [address] 07-12-2023 Mental Status [facility] 07-12-2023 [facility] Status [facility] 07-10-2023 Mental Status Orientation Orie nted x 4 [facility] 07-10-2023 Mental Status [facility] NEGATED: Highlighted row Cognitive function [Interpretation] Cognitive status health issues are not documented Disease [facility] Work Phone: Clinical Notes 06-09-2023 to 08-07-2025 Note Date & Type Note Facility 08-07-2025 Hospital Discharg e instructions Patient Education 08/07/2025 03:11:56 Gout Gout Gout is an inflammation of a joint due to a build-up of gout crystals in the joint fluid. This occurs when there is an excess of uric acid (a normal waste product) in the body. Uric acid builds up in the body when the kidneys are unable to filter enough of it from the blood. This may occur with age. It is also associated with kidney disease. Gout occurs more often in people with obesity, diabetes, high blood pressure, or high levels of fats in the blood. It may run in families. Gout tends to come and go. A flare up of gout is called an attack. Drinking alcohol or eating certain foods (such as shellfish or foods with additives such as high-fructose corn syrup) may increase uric acid levels in the blood and cause a gout attack. During a gout attack, the affected joint may become a hot, red, swollen and painful. If you have had one attack of gout, you are likely to have another. An attack of gout can be treated with medicine. If these attacks become frequent, a daily medicine may be prescribed to help the kidneys remove uric acid from the body. Home care During a gout attack: Rest painful joints. If gout affects the joints of your foot or leg, you may want to use crutches for the first few days to keep from bearing weight on the affected joint. When sitting or lying down, raise the painful joint to a level higher than your heart. Apply an ice pack (ice cubes in a plastic bag wrapped in a thin towel) over the injured area for 20 minutes every 1 to 2 hours the first day for pain relief. Continue this 3 to 4 times a day for swelling and pain. Avoid alcohol and foods listed below (see Preventing attacks) during a gout attack. Drink extra fluid to help flush the uric acid through your kidneys. If you were prescribed a medicine to treat gout, take it as your healthcare provider has instructed. Don't skip doses. Take anti-inflammatory medicine as directed. If pain medicines have been prescribed, take them exactly as directed. Preventing attacks Minimize or avoid alcohol use. Excess alcohol intake can cause a gout attack. Limit these foods and beverages: oOrgan meats, such as kidneys and liver oCertain seafoods (anchovies, sardines, shrimp, scallops, jefferson, mackerel) oWild game, meat extracts and meat gravies oFoods and beverages sweetened with high-fructose corn syrup, such as sodas Eat a healthy diet including low-fat and nonfat dairy, whole grains, and vegetables. If you are overweight, talk to your healthcare provider about a weight reduction plan. Avoid fasting or extreme low calorie diets (less than 900 calories per day). This will increase uric acid levels in the body. If you have diabetes or high blood pressure, work with your doctor to manage these conditions. Protect the joint from injury. Trauma can trigger a gout attack. Follow-up care Follow up with your healthcare provider, or as advised. When to seek medical advice Call your healthcare provider if you have any of the following: Fever over 100.4 F (38. C) with worsening joint pain Increasing redness around the joint Pain developing in another joint Repeated vomiting, abdominal pain, or blood in the vomit or stool (black or red color) [id number] [employer]. [address] [place] [address]. All rights reserved. This information is not intended as a substitute for professional medical care. Always follow your healthcare professional's instructions. Follow Up Care 08/07/2025 03:01:34 With:MICHAEL OTOOLE DO Address: [address] [place] [address] [phone] When:2-4 days [facility] 08-07-2025 Note Discharge Instructions Thank you for allowing [facility] to assist you with your healthcare needs. The following is important discharge information regarding your hospital visit. Diagnosis from Today's Visit Gout of big toe What to Do Next Instructions from Your Care Team No qualifying data available. Post Acute Orders No qualifying data available. You Need to Schedule the Following Appointments Follow Up with MICHAEL OTOOLE DO When:Within 2-4 days Where:[address] [place] [address] [phone] Allergies No Known Medication Allergies Medications Please ask your primary doctor or pharmacist before taking any other medication not listed, including over the counter drugs, herbal medications, vitamins and or supplements as they may interact with your home medications. What How Much When Why Instructions Last Dose New predniSONE (predniSONE 50 mg oral tablet) 1 tab(s) by mouth Once a day Duration: 5 Days Take with food Printed Prescription Please take this list to your next doctor s visit. Bring all medications you take, including over the counter medications, herbals and other supplements with you to your doctor s visit. Patients and families are reminded to discard old lists and to update any records with all medication providers or retail pharmacies. Education Materials Gout Gout is an inflammation of a joint due to a build-up of gout crystals in the joint fluid. This occurs when there is an excess of uric acid (a normal waste product) in the body. Uric acid builds up in the body when the kidneys are unable to filter enough of it from the blood. This may occur with age. It is also associated with kidney disease. Gout occurs more often in people with obesity, diabetes, high blood pressure, or high levels of fats in the blood. It may run in families. Gout tends to come and go. A flare up of gout is called an attack. Drinking alcohol or eating certain foods (such as shellfish or foods with additives such as high-fructose corn syrup) may increase uric acid levels in the blood and cause a gout attack. During a gout attack, the affected joint may become a hot, red, swollen and painful. If you have had one attack of gout, you are likely to have another. An attack of gout can be treated with medicine. If these attacks become frequent, a daily medicine may be prescribed to help the kidneys remove uric acid from the body. Home care During a gout attack: Rest painful joints. If gout affects the joints of your foot or leg, you may want to use crutches for the first few days to keep from bearing weight on the affected joint. When sitting or lying down, raise the painful joint to a level higher than your heart. Apply an ice pack (ice cubes in a plastic bag wrapped in a thin towel) over the injured area for 20 minutes every 1 to 2 hours the first day for pain relief. Continue this 3 to 4 times a day for swelling and pain. Avoid alcohol and foods listed below (see Preventing attacks) during a gout attack. Drink extra fluid to help flush the uric acid through your kidneys. If you were prescribed a medicine to treat gout, take it as your healthcare provider has instructed. Don't skip doses. Take anti-inflammatory medicine as directed. If pain medicines have been prescribed, take them exactly as directed. Preventing attacks Minimize or avoid alcohol use. Excess alcohol intake can cause a gout attack. Limit these foods and beverages: oOrgan meats, such as kidneys and liver oCertain seafoods (anchovies, sardines, shrimp, scallops, jefferson, mackerel) oWild game, meat extracts and meat gravies oFoods and beverages sweetened with high-fructose corn syrup, such as sodas Eat a healthy diet including low-fat and nonfat dairy, whole grains, and vegetables. If you are overweight, talk to your healthcare provider about a weight reduction plan. Avoid fasting or extreme low calorie diets (less than 900 calories per day). This will increase uric acid levels in the body. If you have diabetes or high blood pressure, work with your doctor to manage these conditions. Protect the joint from injury. Trauma can trigger a gout attack. Follow-up care Follow up with your healthcare provider, or as advised. When to seek medical advice Call your healthcare provider if you have any of the following: Fever over 100.4 F (38. C) with worsening joint pain Increasing redness around the joint Pain developing in another joint Repeated vomiting, abdominal pain, or blood in the vomit or stool (black or red color) [phone] [employer]. [address] [place] [address]. All rights reserved. This information is not intended as a substitute for professional medical care. Always follow your healthcare professional's instructions. Additional Information VACCINATE! IT SAVES LIVES! Members of the community who have not yet received the COVID-19 vaccine and would like to receive it can visit one of [facility] vaccine clinics. There are many vaccine clinic locations within the [facility]. For locations and available times, please visit [email or web address] [email or web address] It is important to note that some COVID mobile vaccine clinics are held outdoors and may be canceled in rainy or stormy conditions. To learn more about pediatric vaccinations (ages 5-11), we invite you to visit the [facility] webpage. [email or web address] [email or web address] [email or web address] To learn more about the COVID-19 vaccine, we invite you to visit the CDC website for a list of frequently asked questions. https://www.cdc.gov/coronavirus/ 2019-ncov/vaccines/faq.html [facility] Patient Portal Access Instructions: Stay connected with your healthcare team and access your personal medical information anytime with the [facility] Patient Portal. If you would like a full copy of your medical records please contact the [facility] Medical Records Department Friday through Friday between 8a.m. and 4:30p.m. Please follow the directions below to access the portal: 1.Access the email account you provided upon registration to the hospital.2.Look for an invitation email from [facility].3.Open the email and access the invitation link: Accept Invitation to [facility].Fill in the required hou to create your account. To access your account, visit [employer] or scan the [employer] code above. Click the blue button labeled Access Patient Portal and then log in with the username and password that you created in the steps above. You can then view a summary of results, a summary of your visits, and the ability to download your summaries to your computer or send the information securely to a physician. Remember that your healthcare information is confidential, so carefully consider who you will allow to register on the [facility] Patient Portal for access to your information. You can also access the [facility] Patient Portal on the [employer] denae. Simply click on Health Records under Health Data and then click on the SMS Assist logo. HOW TO SAFELY DISPOSE OF PRESCRIPTION MEDICATIONS Please use one of the following methods to safely dispose of your unused medications. 1.Use a drug disposal kit: the drug disposal pouch allows you to safely discard your old and unused drugs. Ask your nurse to give you one when you are discharged.2.Visit a local take-back location: Many local pharmacies and police departments have programs that collect old and unwanted prescription drugs. Call your local pharmacy or go to http://[employer].Solutionary/9I0Ga9x to find one close to you.3.Make use of household items: Use cat litter or old coffee grounds to dispose medications if other options are not available. Mix your drugs with these household products, seal them in an airtight container and throw it into the garbage. Call [facility]: [phone] to be sure your drugs can be disposed of in this way. Some medicines may require a different approach.4.Never flush your medications down the toilet. IF YOU HAVE BEEN PRESCRIBED AN OPIOIDS FOR PAIN If you have been prescribed an opioid (such as hydrocodone, oxycodone or morphine), it is critical to understand the possible side effects and risks of opioid pain medications. Even when taken as directed, opioids can have several side effects including: Tolerance, meaning you might need to take more of a medication for the same pain relief. Nausea, vomiting and/or constipation. Sleepiness, dizziness, dry mouth, confusion, depression or itching. Physical dependence, meaning you have withdrawal symptoms when a medication is stopped ? this can develop within a few days. KNOW YOUR RESPONSIBILITIES It is important to know exactly how much and how often to take the opioid pain medications you are prescribed. Never take opioids in higher amounts or more often than prescribed. Do not combine opioids with alcohol or other drugs that cause drowsiness, such as benzodiazepines, also known as benzos, including diazepam and alprazolam, muscle relaxants or sleep aids. Never sell or share prescription opioids. This is illegal. Store opioids in a secure place and out of reach of others (including children, family, friends and visitors). The last page(s) of this document has been signed and retained as a CHART COPY Signatures Patient Education Materials Gout Medication Leaflets My discharge plan and instructions have been reviewed and explained to me and IJESSICA MATTHEW understand my current condition and have read and understand these discharge instructions. I have received a written copy of the plan/instructions. If I have questions, I am aware that I should contact my doctor. 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 Often, healthcare providers don t know what causes it. But it can be caused by certain health conditions and medicines. If you have high blood pressure, you may not have any symptoms. If you do have symptoms, they may include headache, dizziness, changes in your vision, chest pain, and shortness of breath. But even without symptoms, high blood pressure that s not treated raises your risk for heart attack, heart failure, and stroke. High blood pressure is a serious health risk and shouldn t be ignored. Blood pressure measurements are given as 2 numbers. Systolic blood pressure is the upper number. This is the pressure when the heart contracts. Diastolic blood pressure is the lower number. This is the pressure when the heart relaxes between beats. You will see your blood pressure readings written together. For example, a person with a systolic pressure of 118 and a diastolic pressure of 78 will have 118/78 written in the medical record. Blood pressure is categorized as normal, elevated, or stage 1 or stage 2 high blood pressure: Normal blood pressure is systolic of less than 120 and diastolic of less than 80 (120/80) Elevated blood pressure is systolic of 120 to 129 and diastolic less than 80 Stage 1 high blood pressure is systolic is 130 to 139 or diastolic between 80 to 89 Stage 2 high blood pressure is when systolic is 140 or higher or the diastolic is 90 or higher Home care If you have high blood pressure, follow these home care guidelines to help lower your blood pressure. If you are taking medicines for high blood pressure, these methods may reduce or end your need for medicines in the future. Start a weight-loss program if you are overweight. Cut back on how much salt you get in your diet. Here s how to do this: oDon t eat foods that have a lot of salt. These include olives, pickles, smoked meats, and salted potato chips. oDon t add salt to your food at the table. oUse only small amounts of salt when cooking. Start an exercise program. Talk with your healthcare provider about the type of exercise program that would be best for you. It doesn't have to be hard. Even brisk walking for 20 minutes 3 times a week is a good form of exercise. Don t take medicines that stimulate the heart. This includes many aeos-jjp-psxoyyu cold and sinus decongestant pills and sprays, as well as diet pills. Check the warnings about high blood pressure on the label. Before buying any oute-udg-gikjtgl medicines or supplements, always ask the pharmacist about the product's potential interaction with your high blood pressure and your high blood pressure medicines. Stimulants such as amphetamine or cocaine could be deadly for someone with high blood pressure. Never take these. Limit how much caffeine you get in your diet. Switch to caffeine-free products. Stop smoking. If you are a long-time smoker, this can be hard. Talk to your healthcare provider about medicines and nicotine replacement options to help you. Also, enroll in a stop-smoking program to make it more likely that you will quit for good. Learn how to handle stress. This is an important part of any program to lower blood pressure. Learn about relaxation methods like meditation, yoga, or biofeedback. If your provider prescribed medicines, take them exactly as directed. Missing doses may cause your blood pressure get out of control. If you miss a dose or doses, check with your healthcare provider or pharmacist about what to do. Consider buying an automatic blood pressure machine to check your blood pressure at home. Ask your provider for a recommendation. You can get one of these at most pharmacies. The [place] [employer] recommends the following guidelines for home blood pressure monitoring: Don't smoke or drink coffee for 30 minutes before taking your blood pressure. Go to the bathroom before the test. Relax for 5 minutes before taking the measurement. Sit with your back supported (don't sit on a couch or soft chair); keep your feet on the floor uncrossed. Place your arm on a solid flat surface (like a table) with the upper part of the arm at heart level. Place the middle of the cuff directly above the bend of the elbow. Check the monitor's instruction manual for an illustration. Take multiple readings. When you measure, take 2 to 3 readings one minute apart and record all of the results. Take your blood pressure at the same time every day, or as your healthcare provider recommends. Record the date, time, and blood pressure reading. Take the record with you to your next medical appointment. If your blood pressure monitor has a built-in memory, simply take the monitor with you to your next appointment. Call your provider if you have several high readings. Don't be frightened by a single high blood pressure reading, but if you get several high readings, check in with your healthcare provider. Note: When blood pressure reaches a systolic (top number) of 180 or higher OR diastolic (bottom number) of 110 or higher, seek emergency medical treatment. Follow-up care You will need to see your healthcare provider regularly. This is to check your blood pressure and to make changes to your medicines. Make a follow-up appointment as directed. Bring the record of your home blood pressure readings to the appointment. When to seek medical advice Call your healthcare provider right away if any of these occur: Blood pressure reaches a systolic (upper number) of 180 or higher OR a diastolic (bottom number) of 110 or higher Chest pain or shortness of breath Severe headache Throbbing or rushing sound in the ears Nosebleed Sudden severe pain in your belly (abdomen) Extreme drowsiness, confusion, or fainting Dizziness or spinning sensation (vertigo) Weakness of an arm or leg or one side of the face You have problems speaking or seeing 9520-[address] [employer]. [address] [place] [address]. All rights reserved. This information is not intended as a substitute for professional medical care. Always follow your healthcare professional's instructions. 06/26/2025 21:05:24 Shortness of Breath (Dyspnea) Shortness of Breath (Dyspnea) Shortness of breath is the feeling that you can't catch your breath or get enough air. It is also known as dyspnea. Dyspnea can be caused by many different conditions. They include: Acute asthma attack Worsening of chronic lung diseases such as chronic bronchitis and emphysema Heart failure. This is when weak heart muscle allows extra fluid to collect in the lungs. Panic attacks or anxiety. Fear can cause rapid breathing (hyperventilation). Pneumonia, or an infection in the lung tissue Exposure to toxic substances, fumes, smoke, or certain medicines Blood clot in the lung (pulmonary embolism). This is often from a piece of blood clot in a deep vein of the leg (deep vein thrombosis) that breaks off and travels to the lungs. Heart attack or heart-related chest pain (angina) Anemia Collapsed lung (pneumothorax) Dehydration Based on your visit today, the exact cause of your shortness of breath is not certain. Your tests don t show any of the serious causes of dyspnea. You may need other tests to find out if you have a serious problem. It s important to watch for any new symptoms or symptoms that get worse. Follow up with your healthcare provider as directed. Home care Follow these tips to take care of yourself at home: When your symptoms are better, go back to your usual activities. If you smoke, you should stop. Join a quit-smoking program or ask your healthcare provider for help. Eat a healthy diet and get plenty of sleep. Get regular exercise. Talk with your healthcare provider before starting to exercise, especially if you have other medical problems. Cut down on the amount of caffeine and stimulants you consume. Follow-up care Follow up with your healthcare provider, or as advised. If tests were done, you will be told if your treatment needs to be changed. You can call as directed for the results. If an X-ray was taken, a specialist will review it. You will be notified of any new findings that may affect your care. Call 911 Shortness of breath may be a sign of a serious medical problem. For example, it may be a problem with your heart or lungs. Call 911 if you have worsening shortness of breath or trouble breathing, especially with any of the symptoms below: Confusion or difficulty waking Fainting or loss of consciousness. Fast or irregular heartbeat Coughing up blood Pain in your chest, arm, shoulder, neck, or upper back Sweating When to seek medical advice Call your healthcare provider right away if any of these occur: Slight shortness of breath or wheezing Redness, pain or swelling in your leg, arm, or other body area Swelling in both legs or ankles Fast weight gain Dizziness or weakness Fever of 100.4 F (38 C) or higher, or as directed by your healthcare provider 5526-3041 [employer]. [address] [place] [address]. All rights reserved. This information is not intended as a substitute for professional medical care. Always follow your healthcare professional's instructions. Follow Up Care 06/26/2025 19:43:15 With:MICHAEL OTOOLE DO Address: [address] [place] [address] [phone] When:2-4 days [facility] 06-26-2025 Note Discharge Instructions Thank you for allowing [facility] to assist you with your healthcare needs. The following is important discharge information regarding your hospital visit. Diagnosis from Today's Visit Dyspnea What to Do Next Instructions from Your Care Team No qualifying data available. Post Acute Orders No qualifying data available. You Need to Schedule the Following Appointments Follow Up with MICHAEL OTOOLE DO When:Within 2-4 days Where:[address], [place] [phone] Allergies No Known Medication Allergies Medications Please ask your primary doctor or pharmacist before taking any other medication not listed, including over the counter drugs, herbal medications, vitamins and or supplements as they may interact with your home medications. What How Much When Why Instructions Last Dose New predniSONE (predniSONE 20 mg oral tablet) 3 tab(s) by mouth Once a day Duration: 4 Days Printed Prescription Please take this list to your next doctor s visit. Bring all medications you take, including over the counter medications, herbals and other supplements with you to your doctor s visit. Patients and families are reminded to discard old lists and to update any records with all medication providers or retail pharmacies. Education Materials Established High Blood Pressure High blood pressure (hypertension) is a chronic disease. Often, healthcare providers don t know what causes it. But it can be caused by certain health conditions and medicines. If you have high blood pressure, you may not have any symptoms. If you do have symptoms, they may include headache, dizziness, changes in your vision, chest pain, and shortness of breath. But even without symptoms, high blood pressure that s not treated raises your risk for heart attack, heart failure, and stroke. High blood pressure is a serious health risk and shouldn t be ignored. Blood pressure measurements are given as 2 numbers. Systolic blood pressure is the upper number. This is the pressure when the heart contracts. Diastolic blood pressure is the lower number. This is the pressure when the heart relaxes between beats. You will see your blood pressure readings written together. For example, a person with a systolic pressure of 118 and a diastolic pressure of 78 will have 118/78 written in the medical record. Blood pressure is categorized as normal, elevated, or stage 1 or stage 2 high blood pressure: Normal blood pressure is systolic of less than 120 and diastolic of less than 80 (120/80) Elevated blood pressure is systolic of 120 to 129 and diastolic less than 80 Stage 1 high blood pressure is systolic is 130 to 139 or diastolic between 80 to 89 Stage 2 high blood pressure is when systolic is 140 or higher or the diastolic is 90 or higher Home care If you have high blood pressure, follow these home care guidelines to help lower your blood pressure. If you are taking medicines for high blood pressure, these methods may reduce or end your need for medicines in the future. Start a weight-loss program if you are overweight. Cut back on how much salt you get in your diet. Here s how to do this: oDon t eat foods that have a lot of salt. These include olives, pickles, smoked meats, and salted potato chips. oDon t add salt to your food at the table. oUse only small amounts of salt when cooking. Start an exercise program. Talk with your healthcare provider about the type of exercise program that would be best for you. It doesn't have to be hard. Even brisk walking for 20 minutes 3 times a week is a good form of exercise. Don t take medicines that stimulate the heart. This includes many adcb-jee-xsindvt cold and sinus decongestant pills and sprays, as well as diet pills. Check the warnings about high blood pressure on the label. Before buying any pupy-pux-gjbacar medicines or supplements, always ask the pharmacist about the product's potential interaction with your high blood pressure and your high blood pressure medicines. Stimulants such as amphetamine or cocaine could be deadly for someone with high blood pressure. Never take these. Limit how much caffeine you get in your diet. Switch to caffeine-free products. Stop smoking. If you are a long-time smoker, this can be hard. Talk to your healthcare provider about medicines and nicotine replacement options to help you. Also, enroll in a stop-smoking program to make it more likely that you will quit for good. Learn how to handle stress. This is an important part of any program to lower blood pressure. Learn about relaxation methods like meditation, yoga, or biofeedback. If your provider prescribed medicines, take them exactly as directed. Missing doses may cause your blood pressure get out of control. If you miss a dose or doses, check with your healthcare provider or pharmacist about what to do. Consider buying an automatic blood pressure machine to check your blood pressure at home. Ask your provider for a recommendation. You can get one of these at most pharmacies. The [place] [employer] recommends the following guidelines for home blood pressure monitoring: Don't smoke or drink coffee for 30 minutes before taking your blood pressure. Go to the bathroom before the test. Relax for 5 minutes before taking the measurement. Sit with your back supported (don't sit on a couch or soft chair); keep your feet on the floor uncrossed. Place your arm on a solid flat surface (like a table) with the upper part of the arm at heart level. Place the middle of the cuff directly above the bend of the elbow. Check the monitor's instruction manual for an illustration. Take multiple readings. When you measure, take 2 to 3 readings one minute apart and record all of the results. Take your blood pressure at the same time every day, or as your healthcare provider recommends. Record the date, time, and blood pressure reading. Take the record with you to your next medical appointment. If your blood pressure monitor has a built-in memory, simply take the monitor with you to your next appointment. Call your provider if you have several high readings. Don't be frightened by a single high blood pressure reading, but if you get several high readings, check in with your healthcare provider. Note: When blood pressure reaches a systolic (top number) of 180 or higher OR diastolic (bottom number) of 110 or higher, seek emergency medical treatment. Follow-up care You will need to see your healthcare provider regularly. This is to check your blood pressure and to make changes to your medicines. Make a follow-up appointment as directed. Bring the record of your home blood pressure readings to the appointment. When to seek medical advice Call your healthcare provider right away if any of these occur: Blood pressure reaches a systolic (upper number) of 180 or higher OR a diastolic (bottom number) of 110 or higher Chest pain or shortness of breath Severe headache Throbbing or rushing sound in the ears Nosebleed Sudden severe pain in your belly (abdomen) Extreme drowsiness, confusion, or fainting Dizziness or spinning sensation (vertigo) Weakness of an arm or leg or one side of the face You have problems speaking or seeing [id number] [employer]. [address] [place] [address], [place] [address]. All rights reserved. This information is not intended as a substitute for professional medical care. Always follow your healthcare professional's instructions. Shortness of Breath (Dyspnea) Shortness of breath is the feeling that you can't catch your breath or get enough air. It is also known as dyspnea. Dyspnea can be caused by many different conditions. They include: Acute asthma attack Worsening of chronic lung diseases such as chronic bronchitis and emphysema Heart failure. This is when weak heart muscle allows extra fluid to collect in the lungs. Panic attacks or anxiety. Fear can cause rapid breathing (hyperventilation). Pneumonia, or an infection in the lung tissue Exposure to toxic substances, fumes, smoke, or certain medicines Blood clot in the lung (pulmonary embolism). This is often from a piece of blood clot in a deep vein of the leg (deep vein thrombosis) that breaks off and travels to the lungs. Heart attack or heart-related chest pain (angina) Anemia Collapsed lung (pneumothorax) Dehydration Based on your visit today, the exact cause of your shortness of breath is not certain. Your tests don t show any of the serious causes of dyspnea. You may need other tests to find out if you have a serious problem. It s important to watch for any new symptoms or symptoms that get worse. Follow up with your healthcare provider as directed. Home care Follow these tips to take care of yourself at home: When your symptoms are better, go back to your usual activities. If you smoke, you should stop. Join a quit-smoking program or ask your healthcare provider for help. Eat a healthy diet and get plenty of sleep. Get regular exercise. Talk with your healthcare provider before starting to exercise, especially if you have other medical problems. Cut down on the amount of caffeine and stimulants you consume. Follow-up care Follow up with your healthcare provider, or as advised. If tests were done, you will be told if your treatment needs to be changed. You can call as directed for the results. If an X-ray was taken, a specialist will review it. You will be notified of any new findings that may affect your care. Call 911 Shortness of breath may be a sign of a serious medical problem. For example, it may be a problem with your heart or lungs. Call 911 if you have worsening shortness of breath or trouble breathing, especially with any of the symptoms below: Confusion or difficulty waking Fainting or loss of consciousness. Fast or irregular heartbeat Coughing up blood Pain in your chest, arm, shoulder, neck, or upper back Sweating When to seek medical advice Call your healthcare provider right away if any of these occur: Slight shortness of breath or wheezing Redness, pain or swelling in your leg, arm, or other body area Swelling in both legs or ankles Fast weight gain Dizziness or weakness Fever of 100.4 F (38 C) or higher, or as directed by your healthcare provider [id number] [employer]. [address] [place] [address], [place] [address]. All rights reserved. This information is not intended as a substitute for professional medical care. Always follow your healthcare professional's instructions. Additional Information VACCINATE! IT SAVES LIVES! Members of the community who have not yet received the COVID-19 vaccine and would like to receive it can visit one of [facility] vaccine clinics. There are many vaccine clinic locations within the [facility]. For locations and available times, please visit [email or web address] It is important to note that some COVID mobile vaccine clinics are held outdoors and may be canceled in rainy or stormy conditions. To learn more about pediatric vaccinations (ages 5-11), we invite you to visit the [facility] webpage. [email or web address] To learn more about the COVID-19 vaccine, we invite you to visit the CDC website for a list of frequently asked questions. https://www.cdc.gov/coronavirus/ 2019-ncov/vaccines/faq.html [facility] Patient Portal Access Instructions: Stay connected with your healthcare team and access your personal medical information anytime with the [facility] Patient Portal. If you would like a full copy of your medical records please contact the [facility] Medical Records Department Friday through Friday between 8a.m. and 4:30p.m. Please follow the directions below to access the portal: 1.Access the email account you provided upon registration to the hospital.2.Look for an invitation email from [facility].3.Open the email and access the invitation link: Accept Invitation to [facility].Fill in the required hou to create your account. Sign into [email or web address] with your username and password that you created in the above steps to stay up to date. You can then view a summary of results, a summary of your visits, and the ability to download your summaries to your computer or send the information securely to a physician. Remember that your healthcare information is confidential, so carefully consider who you will allow to register on the [facility] Patient Portal for access to your information. You can also access the [facility] Patient Portal on the [employer]. Simply click on Health Records under Health Data and then click on the [facility] logo. HOW TO SAFELY DISPOSE OF PRESCRIPTION MEDICATIONS Please use one of the following methods to safely dispose of your unused medications. 1.Use a drug disposal kit: the drug disposal pouch allows you to safely discard your old and unused drugs. Ask your nurse to give you one when you are discharged.2.Visit a local take-back location: Many local pharmacies and police departments have programs that collect old and unwanted prescription drugs. Call your local pharmacy or go to http://[employer].Solutionary/3C0Tt1i to find one close to you.3.Make use of household items: Use cat litter or old coffee grounds to dispose medications if other options are not available. Mix your drugs with these household products, seal them in an airtight container and throw it into the garbage. Call [facility]: [phone] to be sure your drugs can be disposed of in this way. Some medicines may require a different approach.4.Never flush your medications down the toilet. IF YOU HAVE BEEN PRESCRIBED AN OPIOIDS FOR PAIN If you have been prescribed an opioid (such as hydrocodone, oxycodone or morphine), it is critical to understand the possible side effects and risks of opioid pain medications. Even when taken as directed, opioids can have several side effects including: Tolerance, meaning you might need to take more of a medication for the same pain relief. Nausea, vomiting and/or constipation. Sleepiness, dizziness, dry mouth, confusion, depression or itching. Physical dependence, meaning you have withdrawal symptoms when a medication is stopped ? this can develop within a few days. KNOW YOUR RESPONSIBILITIES It is important to know exactly how much and how often to take the opioid pain medications you are prescribed. Never take opioids in higher amounts or more often than prescribed. Do not combine opioids with alcohol or other drugs that cause drowsiness, such as benzodiazepines, also known as benzos, including diazepam and alprazolam, muscle relaxants or sleep aids. Never sell or share prescription opioids. This is illegal. Store opioids in a secure place and out of reach of others (including children, family, friends and visitors). The last page(s) of this document has been signed and retained as a CHART COPY Signatures Patient Education Materials Hypertension, Established Shortness of Breath (Dyspnea) Medication Leaflets My discharge plan and instructions have been reviewed and explained to me and I,PANCHO LOPEZ understand my current condition and have read and understand these discharge instructions. I have received a written copy of the plan/instructions. If I have questions, I am aware that I should contact my doctor. 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 HISTORY: ORDERING SYSTEM PROVIDED HISTORY: Reason for Exam: chest pain FINDINGS: Cardiomediastinal contours are stable. No focal consolidation or pulmonary edema. No pneumothorax or pleural effusion. No acute osseous abnormalities. IMPRESSION: No focal consolidation. I have personally reviewed the images of this examination and agree with the resident's findings and interpretation. Interpreted by: Sukh Sandoval Preliminary Report By: Titus Herrera Electronically signed By Sukh Sandoval Dictated Date: 06/26/2025 8:52:18 PM Prelim Date: 06/26/2025 8:53:57 PM Sign Date: 06/26/2025 8:54:47 PM Ordering Provider: LUIS VEGA [facility]08-17-2025 Note* Exam Date Time Procedure Performing Provider Status 06/26/25 7:53 PM EKG [ED AOH] - CV KADYLUIS ROCHE DO ; Auth (Verified) ECG Final Report Sinus rhythm BORDERLINE ECG Electronic Signature: LUIS VEGA DO 06/26/2025 20:00:42 [facility]07-28-2025 Evaluation + Plan note Future Scheduled Tests Laboratory* Testosterone,Free and Total 06/06/25 * Lipoprotein (a) 06/06/25 * Apolipoprotein B 06/06/25 * Troponin I High Sensitivity 06/06/25 * TSH with Reflex to FT4 06/06/25 * Ferritin 06/06/25 * Vitamin B12 Level 06/06/25 * A1C Hemoglobin 06/06/25 * Complete Blood Count 06/06/25 * Lipid Profile 06/06/25 * Iron Studies 06/06/25 * Albumin/Creatinine Ratio, Random Urine 06/06/25 * Vitamin D Level 06/06/25 * Complete Metabolic Panel 06/06/25 * N-Terminal proBNP 06/06/25 [facility] 07-28-2025 Evaluation + Plan note Future Scheduled Tests Laboratory* Testosterone,Free and Total 06/06/25 * Lipoprotein (a) 06/06/25 * Apolipoprotein B 06/06/25 * TSH with Reflex to FT4 06/06/25 * Ferritin 06/06/25 * Vitamin B12 Level 06/06/25 * A1C Hemoglobin 06/06/25 * Complete Blood Count 06/06/25 * Lipid Profile 06/06/25 * Iron Studies 06/06/25 * Albumin/Creatinine Ratio, Random Urine 06/06/25 * Vitamin D Level 06/06/25 * Complete Metabolic Panel 06/06/25 * N-Terminal proBNP 06/06/25 [facility] 07-21-2025 History of Present illness Narrative* Zenobia Queen DO - 05/30/2025 2:30 PM EDT Assessment/Plan Discussed chart record of sytolic heart failure and hx of NSTEMI Pt denied any history of this. Chart also indicates hx of substance abuse / misuse Due to patient's refusal of this medical history will evaluate w/ labwork as ordered below; may consider an echo at future visit considering this sheyla thistory. Problem List Items Addressed This Visit None Visit Diagnoses Routine general medical examination at a health care facility - Primary Lipid screening Relevant Orders Lipid Panel CBC Hemoglobin A1C Comprehensive Metabolic Panel Screening for diabetes mellitus Relevant Orders Lipid Panel CBC Hemoglobin A1C Comprehensive Metabolic Panel Subjective Patient ID: Nirmal Lopez is a 39 y.o. male who presents for Annual Exam. Used to weigh 280/290 from diet /exercise. Walks for exercise. Not as much Grandmother w/ melanoma at one point. A little bit of chest pain here / there. Started after losing a lot of weight. Does happen daily Later in the afternoon. Caffeine: 2-3 cups of coffee Per chart review patient was diagnosed with an NSTEMI on July 25, 2024 Due to demand ischemia and it notes a history of cardiac dysrhythmia with nonsustained ventricular tachycardia history of systolic heart failure hypertension history of a gastrointestinal hemorrhage when asking the patient about a history of heart attack and heart failure he denied. A record from [facility] did have lab work that showed a GFR of 76 creatinine of 1.29 Objective BP 120/82 (BP Location: Right arm, Patient Position: Sitting, BP Cuff Size: Large adult) Pulse 83 Temp 36.7 C (98.1 F) (Skin) Ht 1.791 m (5' 10.5) Wt 97.1 kg (214 lb) SpO2 96% BMI 30.27 kg/m Physical Exam: Constitutional: General: not in acute distress Appearance: normal appearance, non-toxic, not ill-appearing or diaphoretic. HENT: Head: Normocephalic and atraumatic Eyes: EOMI, PERRL CV: RRR, Normal Pulses, Normal Heart sounds Pulm: CTAB, effort normal Zenobia Queen DO I spent a total of 26 minutes on the date of the service which included preparing to see the patient, urhl-vn-kvwb patient care, completing clinical documentation, performing a medically appropriate examination, counseling and educating the patient/family/caregiver and ordering medications, tests, or procedures. documented in this [facility] Work Phone: 1([phone]) 314-932110-25-2024 Hospital Discharge instructions Patient Education 09/03/2024 11:46:15 Smoking Cessation How to Quit Smoking Smoking is a hard habit to break. About half of all people who have ever smoked have been able to quit. Most people who still smoke want to quit. Here are some of the best ways to stop smoking. Keep in mind the health benefits of quitting The health benefits of quitting start right away. They keep improving the longer you go without smoking. Knowing this can help inspire you to stay on track. These benefits occur at any age. If you are 17 or 70, quitting is a good choice. Some of the health benefits after your last cigarette include: 20 minutes: Your blood pressure and pulse return to normal. 8 hours: Your oxygen levels return to normal. 2 days: Your ability to smell and taste start to improve as damaged nerves regrow. 2 to 3 weeks: Your circulation and lung function improve. 1 to 9 months: Your coughing, congestion, and shortness of breath decrease. Your tiredness decreases. 1 year: Your risk of heart attack decreases by half. 5 years: Your risk of lung cancer decreases by half. Your risk of stroke becomes the same as a nonsmoker s. Go cold turkey Most former smokers quit cold turkey. This means stopping all at once. Trying to cut back slowly often doesn't work as well. This may be because it continues the habit of smoking. Also, you may inhale more smoke while smoking fewer cigarettes. This leads to the same amount of nicotine in your body. Get support Support programs can be a big help, especially for heavy smokers. These groups offer lectures, waysto change behavior, and peer support. Here are some ways to find a support program: Free national quitline 157-UCPW-ZCD (707-884-8713) Hospital quit-smoking programs [place] [employer] 272-431-7604 [place] [employer] 510-976-9749 Support at home is important too. Family and friends can offer praise and reassurance. If the smoker in your life finds it hard to quit, encourage them to keep trying. Try iezy-zzi-wsrkvpn medicine Nicotine replacement therapy may make it easier to quit. Some aids are available without a prescription. These include a nicotine patch, gum, and lozenges. But it is best to use these under the care of your healthcare provider. The skin patch gives a steady supply of nicotine. Nicotine gum and lozenges give short- time doses of low levels of nicotine. Both methods reduce the craving for cigarettes. If you have nausea, vomiting, dizziness, weakness, or a fast heartbeat, stop using these products.See your healthcare provider. Ask about prescription medicine After reviewing your smoking patterns and past attempts to quit, your doctor may offer a prescription medicine such as bupropion, varenicline, a nicotine inhaler, or nasal spray. Each has advantages and side effects. Your doctor can review these with you. Keep trying Most smokers make many attempts at quitting before they are successful. It s important not to give up. For more information For more on how to quit smoking, try these online resources: Go to Smokefree.gov. Read Clearing the Air from the National [employer] [place] at smokefree.gov/sites/default/files/pdf/rzspenmq-zzv-kmb-accessible.pdf. 1267-[address]6 [employer]. [address] [place] [address]. All rights reserved. This information is not intended as a substitute for professional medical care. Always follow yourhealthcare professional's instructions. 09/03/2024 11:46:07 Heart Failure, Congestive (CHF) Left- or Right- Side Congestive Heart Failure (CHF) The heart is a large muscle that acts as a pump to circulate blood throughout the body. Blood carries oxygen to all of the organs, including the brain, muscles, and skin. After your body takes the oxygen out of the blood, the blood returns to the heart. The right side of the heart collects the blood from the body and pumps it to the lungs. In the lungs, it gets fresh oxygen and gives up carbon dioxide. The oxygen-rich blood from the lungs then returns to the left side of the heart, where it is pumped back out to the rest of your body, starting the process all over. Congestive heart failure (CHF) occurs when the heart muscle does not function normally, leading to fluid retention or reduces blood flow. This can be caused by heart muscle weakness or stiffness, or a heart valve problem. Heart failure can affect the right side of the heart or the left side. But heart failure may affect not only the right side of the heart or only the left side. Although it may have started on one side, it can and often eventually does affect both sides. Right-side heart failure When the right side of the heart is failing, it can t handle the blood it is getting from the rest of the body. This blood returns to the heart through veins. When too much pressure builds up in the veins, fluid leaks out into the tissues. Stephenson then causes that fluid to move to those parts of the body that are the lowest. So one of the first symptoms of right-side CHF can include swelling in the feet and ankles. If the condition gets worse, the swelling can even go up past the knees. Sometimes it gets so severe, the liver and intestines can get congested as well. Left-side heart failure When the left side of the heart is failing, it can t handle the blood it gets from the lungs. Pressure then builds up in the veins of the lungs, causing fluid to leak into the lung tissues. This may cause CHF and pulmonary edema. This causes you to feel short of breath, weak, or dizzy. These symptoms are often worse with exertion, such as when climbing stairs or walking up hills. Lying with your head flat is uncomfortable and can make your breathing worse. This may make sleeping difficult. You may need to use extra pillows to elevate your upper body to sleep well. The same is true when just resting during the daytime. You may also feel weak or tired and have less energy during exertion. There are many causes of heart failure including: Coronary artery disease Past heart attack (also known as acute myocardial infarction, or AMI) High blood pressure Damaged heart valve Diabetes Obesity Cigarette smoking Alcohol abuse Heart failure is usually a chronic condition. The purpose of medical treatment is to improve the pumping action of the heart and to remove excess water from the body. A number of medicines can help reach this goal, improve symptoms, and prevent the heart from becoming weaker. Sometimes, heart failure can become so severe that a device is placed in the heart to help with pumping. Another major goal is to better treat the causes of heart failure, such as diabetes and high blood pressure, by making changes in your lifestyle and maximizing medical control when needed. Home care Follow these guidelines when caring for yourself at home: Check your weight every day. This is very important because a sudden increase in weight gain could mean worsening heart failure. Keep these things in mind: oUse the same scale every day. oWeigh yourself at the same time every day. oMake sure the scale is on a hard floor surface, not on a rug or carpet. oKeep a record of your weight every day so your healthcare provider can see it. If you are not given a log sheet for this, keep a separate journal for this purpose. Cut back on the amount of salt (sodium) you eat. Follow your healthcare provider's recommendation on how much salt or sodium you should have each day. oLimit high-salt foods. These include olives, pickles, smoked meats, salted potato chips, and most prepared foods. oDon't add salt to your food at the table. Use only small amounts of salt when cooking. oRead the labels carefully on food packages to learn how much salt or sodium is in each serving in the package. Remember, a can or package of food may contain more than 1 serving. So if you eat all the food in the package, you may be getting more salt than you think. Follow your healthcare provider's recommendations about how much fluid you should have. Be aware that some foods, such as soup, pudding, and juicy fruits like oranges or melons, contain liquid. You'll need to count the liquid in those foods as part of your daily fluid intake. Your provider can helpyou with this. Stop smoking. Cut back on how much alcohol you drink. Lose weight if you are overweight. The excess weight adds a lot of stress on the workload of the heart. Stay active. Talk with your provider about an exercise program that is safe for your heart. Keep your feet elevated to reduce swelling. Ask your provider about support hose as a preventive treatment for daytime leg swelling. Besides taking your medicine as instructed, an important part of treatment is lifestyle changes. These include diet, physical activity, stopping smoking, and weight control. Improve your diet by including more fresh foods, cutting back on how much sugar and saturated fat you eat, and eating fewer processed foods and less salt. Follow-up care Follow up with your healthcare provider, or as advised. Make sure to keep any appointments that were made for you. These can help better control your congestive heart failure. You will need to follow up with your provider on a routine basis to make sure your heart failure is well managed. If an X-ray, electrocardiogram (ECG), or other tests were done, you will be told of any new findings that may affect your care. Call 911 Call 911 if you: Become severely short of breath Feel lightheaded, or feel like you might pass out or faint Have chest pain or discomfort that is different than usual, the medicines your doctor told you to use for this don't help, or the pain lasts longer than 10 to 15 minutes You suddenly develop a rapid heart rate When to seek medical advice The following may be signs that your heart failure is getting worse. Call your healthcare provider right away if any of these happen: Sudden weight gain. This means 3 or more pounds in one day, or 5 or more pounds in 1 week Trouble breathing not related to being active New or increased swelling of your legs or ankles Swelling or pain in your abdomen Breathing trouble at night. This means waking up short of breath or needing more pillows to breathe. Frequent coughing that doesn t go away Feeling much more tired than usual [phone] [employer]. [address] [place] [address]. All rights reserved. This information is not intended as a substitute for professional medical care. Always follow yourhealthcare professional's instructions. 09/03/2024 11:45:58 URI, Viral W/ Wheezing (Adult) Viral Upper Respiratory Illness with Wheezing (Adult) You have a viral upper respiratory illness (URI), which is another term for the common cold. When the infection causes a lot of irritation, the air passages can go into spasm. This causes wheezing and shortness of breath. This illness is contagious during the first few days. It is spread through the air by coughing and sneezing. It may also be spread by direct contact. This could be by touching the sick person and then touching your own eyes, nose, or mouth. Frequent handwashing will decrease the risk. Most viral illnesses go away within 7 to 10 days with rest and simple home remedies. Sometimes the illness may last for several weeks. Antibiotics will not kill a virus, and they are generally not prescribed for this condition. Home care If symptoms are severe, rest at home for the first 2 to 3 days. When you resume activity, don't letyourself get too tired. If you smoke, stop. Ask your healthcare provider if you need help. Stay away from secondhand cigarette smoke. Don't let people smoke in your house or car. You may use acetaminophen or ibuprofen to control pain and fever, unless another medicine was prescribed. Take the medicine only as directed on the label. If you have chronic liver or kidney disease,have ever had a stomach ulcer or gastrointestinal bleeding, or are taking blood-thinning medicines,talk with your healthcare provider before using these medicines. Aspirin should never be given to anyone under 18 years of age who is ill with a viral infection or fever. It may cause severe liver orbrain damage. Your appetite may be poor, so a light diet is fine. Stay well hydrated by drinking 6 to 8 glasses of fluids per day (water, soft drinks, juices, tea, or soup). Extra fluids will help loosen secretions in the nose and lungs. Rwln-oad-jogyotx cold medicines will not shorten the length of time you re sick, but they may be helpful for the following symptoms: cough, sore throat, and nasal and sinus congestion. Ask your healthcare provider or pharmacist which ocyd-qqi-nrwpuig medicine to use. Don't use decongestants if you have high blood pressure. Follow-up care Follow up with your healthcare provider, or as advised. When to seek medical advice Call your healthcare provider right away if any of these occur: Cough with lots of colored sputum (mucus) Severe headache; face, neck, or ear pain Difficulty swallowing due to throat pain Fever of 100.4 F (38 C) or higher, or as directed by your healthcare provider Call 911 Call 911 if any of these occur: Chest pain, shortness of breath, worsening wheezing, or difficulty breathing Coughing up blood Very severe pain when swallowing, especially if it goes along with a muffled voice [phone] [employer]. [address] [place] [address], [place] [address]. All rights reserved. This information is not intended as a substitute for professional medical care. Always follow yourhealthcare professional's instructions. Follow Up Care 09/03/2024 09:00:18 With:PAVEL PEREZ Address: [address] [facility] [address] [place] [address]- [phone] Business (1) When:3-5 days Comments:Schedule appointment for close follow-up.Use water pill (Lasix) as prescribed.Continue all other routine medications.Return to the ED if symptoms worsen. With:MICHAEL OTOOLE Address: [address] [place] [phone] Business (1) When:3-5 days Comments:Schedule appointment for follow-up regarding cough and shortness of breath.Do not smoke.Vaporizer at bedside.Use Tylenol or Advil for fever and discomfort as needed.Use albuterol inhaler for shortness of breath/wheezing and Tessalon for cough as prescribed.Continue all of the routine home medication s.Return to the ED if symptoms worsen. [facility] 10-25-2024 Note Discharge Instructions Thank you for allowing [facility] to assist you with your healthcare needs. The following is importantdischarge information regarding your hospital visit. What to Do Next Instructions from Your Care Team No qualifying data available. Post Acute Orders No qualifying data available. You Need to Schedule the Following Appointments Follow Up with PAVEL PEREZ When:Within 3-5 days Where:[address] [facility] [address] [place] [address]- [phone] Business (1) Additional Information: Schedule appointment for close follow-up. Use water pill (Lasix) as prescribed. Continue all other routine medications. Return to the ED if symptoms worsen. Follow Up with MICHAEL OTOOLE When:Within 3-5 days Where:[address] [place] [id number] [phone] Business (1) Additional Information: Schedule appointment for follow-up regarding cough and shortness of breath. Do not smoke. Vaporizer at bedside. Use Tylenol or Advil for fever and discomfort as needed. Use albuterol inhaler for shortness of breath/wheezing and Tessalon for cough as prescribed. Continue all of the routine home medications. Return to the ED if symptoms worsen. Allergies No Known Medication Allergies Medications Please ask your primary doctor or pharmacist before taking any other medication not listed, including over the counter drugs, herbal medications, vitamins and or supplements as they may interact withyour home medications. What How Much When Why Instructions Last Dose New albuterol (albuterol MDI (90 mcg/ inh) CFC free inhalation aerosol) 2 puff(s) by inhalation Every 6 hours Printed Prescription New albuterol (albuterol 5 mg/ mL (0.5%) inhalation solution) 0.5 Milliliter by inhalation Every 4 hours Duration: 7 Days Printed Prescription New benzonatate (Tessalon Perles 100 mg oral capsule) 1 cap by mouth Three (3) times a day Duration: 7 Days Printed Prescription New furosemide (Lasix 40 mg oral tablet) 1 tab(s) by mouth Once a day Printed Prescription Unchanged amLODIPine (amLODIPine 10 mg oral tablet) 1 tab(s) by mouth Once a day Unchanged aspirin (aspirin 81 mg oral tablet, chewable) 1 tab(s) by mouth Once a day with a meal Unchanged atorvastatin (atorvastatin 40 mg oral tablet) 1 tab(s) by mouth Once a day Unchanged carvedilol (Coreg 6.25 mg oral tablet) 1 tab(s) by mouth Two (2) times a day Unchanged cholecalciferol (Vitamin D3 1250 mcg (50,000 intl units) oral capsule) 1 cap by mouth Every week Hypersomnia Vitamin D insufficiency restest Vit D Unchanged dapagliflozin (Farxiga 10 mg oral tablet) 1 tab(s) by mouth Once a day Unchanged empagliflozin (Jardiance 10 mg oral tablet) 1 tab(s) by mouth Once a day (in the morning) Unchanged sacubitril-valsartan (Entresto 49 mg-51 mg oral tablet) 1 tab(s) by mouth Two (2) times a day Unchanged spironolactone (Aldactone 25 mg oral tablet) 0.5 tab(s) by mouth Once a day Unchanged testosterone (testosterone 20.25 mg/ actuation (1.62%) transdermal gel) 1 pump(s) Topical Once a day (in the morning) Please take this list to your next doctor s visit. Bring all medications you take, including over the counter medications, herbals and other supplements with you to your doctor s visit. Patients and families are reminded to discard old lists and to update any records with all medication providers or retail pharmacies. Medication Leaflets albuterol inhalation (al BUE ter ol) ProAir Digihaler, ProAir RespiClick, Ventolin HFA What is the most important information I should know about albuterol inhalation? Use only as directed. Tell your doctor if you use other medicines or have other medical conditions or allergies. What is albuterol inhalation? Albuterol inhalers are used in adults and children at least 4 years old to to treat or prevent narrowing and swelling inside the lungs (bronchospasm) that may cause breathing problems. Albuterol inhalers are also used to prevent breathing problems while exercising. Albuterol inhalation solution is used to treat acute bronchospasm attacks in children at least 2 years old with asthma. Albuterol inhalation may also be used for purposes not listed in this medication guide. What should I discuss with my healthcare provider before using albuterol inhalation? You should not use this medicine if you are allergic to albuterol inhalation. Do not use albuterol inhalation powder (ProAir RespiClick or ProAir Digihaler) if you are allergic to lactose or milk proteins. Tell your doctor if you have ever had: heart problems, high blood pressure; a thyroid disorder; seizures; if you have used an MAO inhibitor in the past 14 days, such as isocarboxazid, linezolid, methylene blue injection, phenelzine, or tranylcypromine; diabetes; or low blood levels of potassium. If you are , your name may be listed on a registry to track the effects of albuterol inhalation on the baby. Tell your doctor if you are or plan to become . It is not known whether albuterol inhalation will harm an unborn baby. However, having uncontrolled asthma during may increase the risk of premature , low weight, or eclampsia (dangerously high blood pressure thatcan lead to medical problems in both mother and baby). The benefit of preventing bronchospasm may outweigh any risks to the baby. Do not allow a young child to use albuterol inhalation without help from an adult. How should I use albuterol inhalation? Follow the directions on your prescription label and read all medication guides or instruction sheets. Use the medicine exactly as directed. Do not use the medicine more often than prescribed. Your dose needs may change if you switch to a different brand, strength, or form of this medicine. Avoid medication errors by using exactly as directed on the label, or as prescribed by your doctor. The effects of albuterol inhalation last about 4 to 6 hours. To prevent exercise-induced bronchospasm, use this medicine 15 to 30 minutes before you exercise. Talk with your doctor if you need to time your dosing around any planned activities. Read and carefully follow any instructions for preparing and using the medicine for the first time and for following doses. Ask your doctor or pharmacist if you do not understand these instructions. Your dose needs may change due to surgery, illness, stress, or a recent asthma attack. Do not change your dose or stop using asthma medication without your doctor's advice. Tell your doctor if your medicine seems to stop working. Call your doctor if your symptoms do not improve, or if they get worse. Keep the cover on your inhaler closed when not in use. Store away from open flame or high heat. Do not puncture or burn an empty canister. Do not take apart an inhaler device, wash, or put any part of your inhaler in water. Follow all storage and cleaning instructions provided with your inhaler. Your pharmacist can provide more information about how to store this medicine. Get your prescription refilled before you run out of medicine completely. Always use the new inhaler device provided. Store unused albuterol solution vials in the foil pouch at room temperature away from moisture, heat and light. Call your pharmacist if the medicine looks cloudy, has changed colors or has particles in it. Albuterol inhalation solution is stable for only a certain number of days or weeks after being removed from the foil pouch. Throw away any medicine not used within that time. Talk to your pharmacist if you have any questions. What happens if I miss a dose? Use the medicine as soon as you can, but skip the missed dose if it is almost time for your next dose. Do not use two doses at one time. What happens if I overdose? Seek emergency medical attention or call the Poison Help line at . An overdose of albuterol can be fatal. Overdose symptoms may include dry mouth, tremors, chest pain, fast heartbeats, nausea, general ill feeling, seizure, feeling light-headed or fainting. What should I avoid while using albuterol inhalation? Avoid using other fast-acting rescue medications or asthma medications with albuterol inhalation unless you doctor tells you to. Avoid getting this medicine in your eyes. What are the possible side effects of albuterol inhalation? Get emergency medical help if you have signs of an allergic reaction: hives, difficult breathing, swelling of your face, lips, tongue, or throat. Albuterol inhalation may increase the risk of asthma-related or hospitalization. Use only theprescribed dose and follow all instructions for safe use. Call your doctor at once if you have: wheezing, choking, or other breathing problems after using this medicine; chest pain, fast heart rate, pounding heartbeats or fluttering in your chest; severe headache, pounding in your neck or ears; high blood sugar--increased thirst, increased urination, dry mouth, fruity breath odor; or low blood potassium--leg cramps, constipation, irregular heartbeats, fluttering in your chest, increased thirst or urination, numbness or tingling, muscle weakness or limp feeling. Common side effects may include: chest pain, fast or pounding heartbeats; pain and burning when you urinate; upset stomach, vomiting; dizziness; tremors or shaking, nervousness; headache, back pain, body aches; or cough, sore throat, sinus pain, runny or stuffy nose. This is not a complete list of side effects and others may occur. Call your doctor for medical advice about side effects. You may report side effects to FDA at 0-511-BIG-7430. What other drugs will affect albuterol inhalation? Tell your doctor about all your other medicines, especially: any other inhaled medicines or bronchodilators such as ipratropium o tiotropium; digoxin; epinephrine; a diuretic ('water pill') an antidepressant--amitriptyline, desipramine, imipramine, doxepin, nortriptyline, and others; a beta andre--atenolol, carvedilol, labetalol, metoprolol, nadolol, nebivolol, propranolol, sotalol, and others; or an MAO inhibitor--isocarboxazid, linezolid, methylene blue injection, phenelzine, tranylcypromine, and others. This list is not complete. Other drugs may affect albuterol inhalation, including prescription and lkhp-pzk-orrmjxf medicines, vitamins, and herbal products. Not all possible drug interactions are listed here. Where can I get more information? Your doctor or pharmacist can provide more information about albuterol inhalation. Remember, keep this and all other medicines out of the reach of children, never share your medicines with others, and use this medication only for the indication prescribed. Every effort has been made to ensure that the information provided by [employer]. ('[employer]') is accurate, up-to-date, and complete, but no guarantee is made to that effect. Drug information contained herein may be time sensitive. [employer] information has been compiled for use by healthcare practitioners and consumers in the [place] and therefore [employer] does not warrant that uses outside of the [place] are appropriate, unless specifically indicated otherwise. [employer] drug information does not endorse drugs, diagnose patients or recommend therapy. [employer] drug information isan informational resource designed to assist licensed healthcare practitioners in caring for their p atients and/or to serve consumers viewing this service as a supplement to, and not a substitute for, the expertise, skill, knowledge and judgment of healthcare practitioners. The absence of a warningfor a given drug or drug combination in no way should be construed to indicate that the drug or drug combination is safe, effective or appropriate for any given patient. [employer] does not assume any responsibility for any aspect of healthcare administered with the aid of information [employer] provides. The information contained herein is not intended to cover all possible uses, directions, precautions, warnings, drug interactions, allergic reactions, or adverse effects. If you have questions about the drugs you are taking, check with your doctor, nurse or pharmacist. Copyright 8940-7397 [employer]. Version: 09.11. Revision Date: 06/21/2024. benzonatate (neri frye) What is the most important information I should know about benzonatate? Never suck or chew on a benzonatate capsule. Swallow the pill whole. Sucking or chewing the capsulemay cause serious side effects. Benzonatate is not approved for use by anyone younger than 10 years old. An overdose of benzonatatecan be fatal to a young child. What is benzonatate? Benzonatate is used to relieve coughing. Benzonatate is a non-narcotic cough medicine that numbs the throat and lungs, making the cough reflex less active. Benzonatate may also be used for purposes not listed in this medication guide. What should I discuss with my healthcare provider before taking benzonatate? You should not use this medicine if you are allergic to benzonatate or topical numbing medicines such as tetracaine or procaine (found in some insect bite and sunburn creams). Tell your doctor if you are or . Benzonatate is not approved for use by anyone younger than 10 years old. An overdose of benzonatatecan be fatal, especially to a young child who has accidentally swallowed the medicine. How should I take benzonatate? Follow all directions on your prescription label and read all medication guides or instruction sheets. Use the medicine exactly as directed. Never suck or chew on a benzonatate capsule. Swallow the pill whole. Sucking or chewing the capsulemay cause serious side effects. Store at room temperature away from moisture, heat, and light. What happens if I miss a dose? Skip the missed dose and use your next dose at the regular time. Do not use two doses at one time. What happens if I overdose? Seek emergency medical attention or call the Poison Help line at . An overdose of benzonatate can be fatal, especially to a child. Accidental has occurred in children under 10 years old. Overdose symptoms may include tremors, feeling restless, seizure (convulsions), slow heart rate, weak pulse, fainting, and slow breathing (breathing may stop). What should I avoid while taking benzonatate? Avoid eating or drinking anything while you feel numbness or tingling in your mouth or throat. What are the possible side effects of benzonatate? Stop taking this medicine and get emergency medical help if you have signs of an allergic reaction:hives; difficult breathing; swelling of your face, lips, tongue, or throat. Call your doctor at once if you have: severe drowsiness or dizziness; confusion, hallucinations. ongoing numbness or tingling in your mouth, throat, or face; numbness in your chest; a choking feeling; chills; or burning in your eyes. Some of these side effects may result from chewing or sucking on a benzonatate capsule. Common side effects may include: headache, dizziness; nausea, upset stomach; constipation; itching, rash; or stuffy nose. This is not a complete list of side effects and others may occur. Call your doctor for medical advice about side effects. You may report side effects to FDA at 0-082-NHD-4193. What other drugs will affect benzonatate? Using benzonatate with other drugs that make you drowsy can worsen this effect. Ask your doctor before using opioid medication, a sleeping pill, a muscle relaxer, or medicine for anxiety or seizures. Other drugs may affect benzonatate, including prescription and imtz-qzq-vlgovec medicines, vitamins, and herbal products. Tell your doctor about all your current medicines and any medicine you start or stop using. Where can I get more information? Your pharmacist can provide more information about benzonatate. Remember, keep this and all other medicines out of the reach of children, never share your medicines with others, and use this medication only for the indication prescribed. Every effort has been made to ensure that the information provided by [employer]. ('[employer]') is accurate, up-to-date, and complete, but no guarantee is made to that effect. Drug information contained herein may be time sensitive. [employer] information has been compiled for use by healthcare practitioners and consumers in the [place] and therefore [employer] does not warrant that uses outside of the [place] are appropriate, unless specifically indicated otherwise. [employer] drug information does not endorse drugs, diagnose patients or recommend therapy. [employer] drug information isan informational resource designed to assist licensed healthcare practitioners in caring for their p atients and/or to serve consumers viewing this service as a supplement to, and not a substitute for, the expertise, skill, knowledge and judgment of healthcare practitioners. The absence of a warningfor a given drug or drug combination in no way should be construed to indicate that the drug or drug combination is safe, effective or appropriate for any given patient. [employer] does not assume any responsibility for any aspect of healthcare administered with the aid of information [employer] provides. The information contained herein is not intended to cover all possible uses, directions, precautions, warnings, drug interactions, allergic reactions, or adverse effects. If you have questions about the drugs you are taking, check with your doctor, nurse or pharmacist. Copyright [id number] [employer]. Version: 11.. Revision Date: 06/12/2023. furosemide (oral/injection) (fur [place] se mide) Furoscix, Lasix What is the most important information I should know about furosemide? You should not use this medicine if you are unable to urinate. Using more than your recommended dose will not make this medicine more effective. High doses of furosemide may cause irreversible hearing loss. Tell your doctor about all your other medicines. Some drugs should not be used with furosemide. What is furosemide? Furosemide is used to treat fluid retention (edema) in people with congestive heart failure, liver disease, or a kidney disorder such as nephrotic syndrome. Furosemide is also used to treat high blood pressure (hypertension). The Furoscix brand of furosemide is only used in adults. Furosemide may also be used for purposes not listed in this medication guide. What should I discuss with my healthcare provider before using furosemide? You should not use furosemide if you are allergic to it, if you are unable to urinate or have hepatic cirrhosis. You should not use Furoscix if you have ascites or have allergies to medical adhesives. Tell your doctor if you have ever had: an electrolyte imbalance (such as low levels of potassium or magnesium in your blood); enlarged prostate, bladder obstruction, or other urination problems; gout; lupus; diabetes; an allergy to sulfa drugs; kidney disease; or cirrhosis or other liver disease. Tell your doctor if you have an MRI (magnetic resonance imaging) or any type of scan using a radioactive dye that is injected into a vein. Contrast dyes and furosemide can harm your kidneys. It is not known if furosemide will harm an unborn baby. Tell your doctor if you are or plan to become . It may not be safe to breastfeed while using this medicine. Ask your doctor about any risk. Furosemide may slow breast milk production. How should I use furosemide? Follow all directions on your prescription label and read all medication guides or instruction sheets. Use the medicine exactly as directed. Furosemide oral is taken by mouth. Furosemide injection is given in a muscle, under the skin, or isaac vein. A healthcare provider will give you this injection if you are unable to take the medicine by mouth. Furoscix infusion lasts about 5 hours. Furoscix should not get wet. Do not bathe, shower, swim or exercise while wearing the infusor. Also do not apply any products such as lotions or creams in the area where the infusor is placed. It is not recommended to travel by car or airplane while using Furoscix. Also do not use the infusor within 12 inches of mobile phones, tablets, computers, or wireless accessories such as remote control, or Bluetooth devices. Do not reuse a needle, syringe or cartridge. Place them in a puncture-proof 'sharps' container and dispose of it following state or local laws. Keep out of the reach of children and pets. You may receive your first dose in a hospital or clinic setting if you have severe liver disease. Do not use more than your recommended dose. High doses of furosemide may cause irreversible hearingloss. Measure liquid medicine with the supplied measuring device (not a kitchen spoon). Doses are based on weight in children and teenagers. Your child's dose may change if the child gains or loses weight. Furosemide will make you urinate more often and you may get dehydrated easily. Follow your doctor'sinstructions about using potassium supplements or getting enough salt and potassium in your diet. This medicine can affect the results of certain medical tests. Tell any doctor who treats you that you are using furosemide. Your blood pressure will need to be checked often and you may need other medical tests. If you have high blood pressure, keep using this medicine even if you feel well. High blood pressure often has no symptoms. If you need surgery, tell the surgeon ahead of time that you are using furosemide. Store at room temperature away from moisture, heat, and light. Throw away any unused oral liquid after 90 days. What happens if I miss a dose? Furosemide is sometimes used only once, if you are not on a dosing schedule. If you are using the medication regularly, use the medicine as soon as you can, but skip the missed dose if it is almost time for your next dose. Do not use two doses at one time. What happens if I overdose? Seek emergency medical attention or call the Poison Help line at . Overdose symptoms may include feeling very thirsty or hot, heavy sweating, hot and dry skin, extreme weakness, or fainting. What should I avoid while using furosemide? Avoid getting up too fast from a sitting or lying position, or you may feel dizzy. Avoid becoming dehydrated. Follow your doctor's instructions about the type and amount of liquids you should drink while you are using furosemide. Drinking alcohol with this medicine can cause side effects. Furosemide could make you sunburn more easily. Avoid sunlight or tanning beds. Wear protective clothing and use sunscreen (SPF 30 or higher) when you are outdoors. If you have high blood pressure, ask a doctor or pharmacist before taking any medicines that can raise your blood pressure, such as diet pills or degnv-tvy-sbls medicine. What are the possible side effects of furosemide? Get emergency medical help if you have signs of an allergic reaction (hives, difficult breathing, swelling in your face or throat) or a severe skin reaction (fever, sore throat, burning eyes, skin pain, red or purple skin rash with blistering and peeling). Call your doctor at once if you have: a light-headed feeling, like you might pass out; ringing in your ears, hearing loss; muscle spasms or contractions; pale skin, easy bruising, unusual bleeding; high blood sugar--increased thirst, increased urination, dry mouth, fruity breath odor; kidney problems--swelling, urinating less, feeling tired or short of breath; signs of liver or pancreas problems--loss of appetite, upper stomach pain (that may spread to your back), nausea or vomiting, dark urine, jaundice (yellowing of the skin or eyes); or signs of an electrolyte imbalance--increased thirst or urination, constipation, muscle weakness, leg cramps, numbness or tingling, feeling jittery, fluttering in your chest. Common side effects may include: diarrhea, constipation, loss of appetite; numbness or tingling; headache, dizziness; or blurred vision. This is not a complete list of side effects and others may occur. Call your doctor for medical advice about side effects. You may report side effects to FDA at 6-973-OGY-7493. What other drugs will affect furosemide? Sometimes it is not safe to use certain medicines at the same time. Some drugs can affect your blood levels of other drugs you use, which may increase side effects or make the medicines less effective If you also take sucralfate, take your furosemide dose 2 hours before or 2 hours after you take sucralfate. Tell your doctor about all your other medicines, especially: another diuretic, especially ethacrynic acid; methotrexate; chloral hydrate; lithium; phenytoin; an antibiotic; cancer medicine, such as cisplatin; heart or blood pressure medicine; or NSAIDs (nonsteroidal anti-inflammatory drugs)--aspirin, ibuprofen (Advil, Motrin), naproxen (Aleve), celecoxib, diclofenac, indomethacin, meloxicam, and others. This list is not complete. Other drugs may affect furosemide, including prescription and obeq-pxb-tdpztwr medicines, vitamins, and herbal products. Not all possible drug interactions are listed here. Where can I get more information? Your doctor or pharmacist can provide more information about furosemide. Remember, keep this and all other medicines out of the reach of children, never share your medicines with others, and use this medication only for the indication prescribed. Every effort has been made to ensure that the information provided by [employer]. ('[employer]') is accurate, up-to-date, and complete, but no guarantee is made to that effect. Drug information contained herein may be time sensitive. [employer] information has been compiled for use by healthcare practitioners and consumers in the [place] and therefore [employer] does not warrant that uses outside of the [place] are appropriate, unless specifically indicated otherwise. [employer] drug information does not endorse drugs, diagnose patients or recommend therapy. [employer] drug information isan informational resource designed to assist licensed healthcare practitioners in caring for their p atients and/or to serve consumers viewing this service as a supplement to, and not a substitute for, the expertise, skill, knowledge and judgment of healthcare practitioners. The absence of a warningfor a given drug or drug combination in no way should be construed to indicate that the drug or drug combination is safe, effective or appropriate for any given patient. [employer] does not assume any responsibility for any aspect of healthcare administered with the aid of information [employer] provides. The information contained herein is not intended to cover all possible uses, directions, precautions, warnings, drug interactions, allergic reactions, or adverse effects. If you have questions about the drugs you are taking, check with your doctor, nurse or pharmacist. Copyright 1220-6936 [employer]. Version: 20.. Revision Date: 04/20/2024. Education Materials How to Quit Smoking Smoking is a hard habit to break. About half of all people who have ever smoked have been able to quit. Most people who still smoke want to quit. Here are some of the best ways to stop smoking. Keep in mind the health benefits of quitting The health benefits of quitting start right away. They keep improving the longer you go without smoking. Knowing this can help inspire you to stay on track. These benefits occur at any age. If you are 17 or 70, quitting is a good choice. Some of the health benefits after your last cigarette include: 20 minutes: Your blood pressure and pulse return to normal. 8 hours: Your oxygen levels return to normal. 2 days: Your ability to smell and taste start to improve as damaged nerves regrow. 2 to 3 weeks: Your circulation and lung function improve. 1 to 9 months: Your coughing, congestion, and shortness of breath decrease. Your tiredness decreases. 1 year: Your risk of heart attack decreases by half. 5 years: Your risk of lung cancer decreases by half. Your risk of stroke becomes the same as a nonsmoker s. Go cold turkey Most former smokers quit cold turkey. This means stopping all at once. Trying to cut back slowly often doesn't work as well. This may be because it continues the habit of smoking. Also, you may inhale more smoke while smoking fewer cigarettes. This leads to the same amount of nicotine in your body. Get support Support programs can be a big help, especially for heavy smokers. These groups offer lectures, waysto change behavior, and peer support. Here are some ways to find a support program: Free national quitline 153-VFJF-QGO (218-761-3947) [facility] quit-smoking programs [place] [employer] [phone] [place] [employer] [phone] Support at home is important too. Family and friends can offer praise and reassurance. If the smoker in your life finds it hard to quit, encourage them to keep trying. Try vukc-lph-dtzngdy medicine Nicotine replacement therapy may make it easier to quit. Some aids are available without a prescription. These include a nicotine patch, gum, and lozenges. But it is best to use these under the care of your healthcare provider. The skin patch gives a steady supply of nicotine. Nicotine gum and lozenges give short- time doses of low levels of nicotine. Both methods reduce the craving for cigarettes. If you have nausea, vomiting, dizziness, weakness, or a fast heartbeat, stop using these products.See your healthcare provider. Ask about prescription medicine After reviewing your smoking patterns and past attempts to quit, your doctor may offer a prescription medicine such as bupropion, varenicline, a nicotine inhaler, or nasal spray. Each has advantages and side effects. Your doctor can review these with you. Keep trying Most smokers make many attempts at quitting before they are successful. It s important not to give up. For more information For more on how to quit smoking, try these online resources: Go to Smokefree.gov. Read Clearing the Air from the National Cancer [place] at smokePel[employer] Document Solutionsee.gov/sites/default/files/pdf/tpipdqlk-ldf-qzz-accessible.pdf. 0594-1978 [employer]. [address] [place] [address]. All rights reserved. This information is not intended as a substitute for professional medical care. Always follow yourhealthcare professional's instructions. Left- or Right- Side Congestive Heart Failure (CHF) The heart is a large muscle that acts as a pump to circulate blood throughout the body. Blood carries oxygen to all of the organs, including the brain, muscles, and skin. After your body takes the oxygen out of the blood, the blood returns to the heart. The right side of the heart collects the blood from the body and pumps it to the lungs. In the lungs, it gets fresh oxygen and gives up carbon dioxide. The oxygen-rich blood from the lungs then returns to the left side of the heart, where it is pumped back out to the rest of your body, starting the process all over. Congestive heart failure (CHF) occurs when the heart muscle does not function normally, leading to fluid retention or reduces blood flow. This can be caused by heart muscle weakness or stiffness, or a heart valve problem. Heart failure can affect the right side of the heart or the left side. But heart failure may affect not only the right side of the heart or only the left side. Although it may have started on one side, it can and often eventually does affect both sides. Right-side heart failure When the right side of the heart is failing, it can t handle the blood it is getting from the rest of the body. This blood returns to the heart through veins. When too much pressure builds up in the veins, fluid leaks out into the tissues. Stephenson then causes that fluid to move to those parts of the body that are the lowest. So one of the first symptoms of right-side CHF can include swelling in the feet and ankles. If the condition gets worse, the swelling can even go up past the knees. Sometimes it gets so severe, the liver and intestines can get congested as well. Left-side heart failure When the left side of the heart is failing, it can t handle the blood it gets from the lungs. Pressure then builds up in the veins of the lungs, causing fluid to leak into the lung tissues. This may cause CHF and pulmonary edema. This causes you to feel short of breath, weak, or dizzy. These symptoms are often worse with exertion, such as when climbing stairs or walking up hills. Lying with your head flat is uncomfortable and can make your breathing worse. This may make sleeping difficult. You may need to use extra pillows to elevate your upper body to sleep well. The same is true when just resting during the daytime. You may also feel weak or tired and have less energy during exertion. There are many causes of heart failure including: Coronary artery disease Past heart attack (also known as acute myocardial infarction, or AMI) High blood pressure Damaged heart valve Diabetes Obesity Cigarette smoking Alcohol abuse Heart failure is usually a chronic condition. The purpose of medical treatment is to improve the pumping action of the heart and to remove excess water from the body. A number of medicines can help reach this goal, improve symptoms, and prevent the heart from becoming weaker. Sometimes, heart failure can become so severe that a device is placed in the heart to help with pumping. Another major goal is to better treat the causes of heart failure, such as diabetes and high blood pressure, by making changes in your lifestyle and maximizing medical control when needed. Home care Follow these guidelines when caring for yourself at home: Check your weight every day. This is very important because a sudden increase in weight gain could mean worsening heart failure. Keep these things in mind: oUse the same scale every day. oWeigh yourself at the same time every day. oMake sure the scale is on a hard floor surface, not on a rug or carpet. oKeep a record of your weight every day so your healthcare provider can see it. If you are not given a log sheet for this, keep a separate journal for this purpose. Cut back on the amount of salt (sodium) you eat. Follow your healthcare provider's recommendation on how much salt or sodium you should have each day. oLimit high-salt foods. These include olives, pickles, smoked meats, salted potato chips, and most prepared foods. oDon't add salt to your food at the table. Use only small amounts of salt when cooking. oRead the labels carefully on food packages to learn how much salt or sodium is in each serving in the package. Remember, a can or package of food may contain more than 1 serving. So if you eat all the food in the package, you may be getting more salt than you think. Follow your healthcare provider's recommendations about how much fluid you should have. Be aware that some foods, such as soup, pudding, and juicy fruits like oranges or melons, contain liquid. You'll need to count the liquid in those foods as part of your daily fluid intake. Your provider can helpyou with this. Stop smoking. Cut back on how much alcohol you drink. Lose weight if you are overweight. The excess weight adds a lot of stress on the workload of the heart. Stay active. Talk with your provider about an exercise program that is safe for your heart. Keep your feet elevated to reduce swelling. Ask your provider about support hose as a preventive treatment for daytime leg swelling. Besides taking your medicine as instructed, an important part of treatment is lifestyle changes. These include diet, physical activity, stopping smoking, and weight control. Improve your diet by including more fresh foods, cutting back on how much sugar and saturated fat you eat, and eating fewer processed foods and less salt. Follow-up care Follow up with your healthcare provider, or as advised. Make sure to keep any appointments that were made for you. These can help better control your congestive heart failure. You will need to follow up with your provider on a routine basis to make sure your heart failure is well managed. If an X-ray, electrocardiogram (ECG), or other tests were done, you will be told of any new findings that may affect your care. Call 911 Call 911 if you: Become severely short of breath Feel lightheaded, or feel like you might pass out or faint Have chest pain or discomfort that is different than usual, the medicines your doctor told you to use for this don't help, or the pain lasts longer than 10 to 15 minutes You suddenly develop a rapid heart rate When to seek medical advice The following may be signs that your heart failure is getting worse. Call your healthcare provider right away if any of these happen: Sudden weight gain. This means 3 or more pounds in one day, or 5 or more pounds in 1 week Trouble breathing not related to being active New or increased swelling of your legs or ankles Swelling or pain in your abdomen Breathing trouble at night. This means waking up short of breath or needing more pillows to breathe. Frequent coughing that doesn t go away Feeling much more tired than usual [id number] [employer]. [address] [place], [place] [id number]. All rights reserved. This information is not intended as a substitute for professional medical care. Always follow yourhealthcare professional's instructions. Viral Upper Respiratory Illness with Wheezing (Adult) You have a viral upper respiratory illness (URI), which is another term for the common cold. When the infection causes a lot of irritation, the air passages can go into spasm. This causes wheezing and shortness of breath. This illness is contagious during the first few days. It is spread through the air by coughing and sneezing. It may also be spread by direct contact. This could be by touching the sick person and then touching your own eyes, nose, or mouth. Frequent handwashing will decrease the risk. Most viral illnesses go away within 7 to 10 days with rest and simple home remedies. Sometimes the illness may last for several weeks. Antibiotics will not kill a virus, and they are generally not prescribed for this condition. Home care If symptoms are severe, rest at home for the first 2 to 3 days. When you resume activity, don't letyourself get too tired. If you smoke, stop. Ask your healthcare provider if you need help. Stay away from secondhand cigarette smoke. Don't let people smoke in your house or car. You may use acetaminophen or ibuprofen to control pain and fever, unless another medicine was prescribed. Take the medicine only as directed on the label. If you have chronic liver or kidney disease,have ever had a stomach ulcer or gastrointestinal bleeding, or are taking blood-thinning medicines,talk with your healthcare provider before using these medicines. Aspirin should never be given to anyone under 18 years of age who is ill with a viral infection or fever. It may cause severe liver orbrain damage. Your appetite may be poor, so a light diet is fine. Stay well hydrated by drinking 6 to 8 glasses of fluids per day (water, soft drinks, juices, tea, or soup). Extra fluids will help loosen secretions in the nose and lungs. Byxl-dtl-nymrycx cold medicines will not shorten the length of time you re sick, but they may be helpful for the following symptoms: cough, sore throat, and nasal and sinus congestion. Ask your healthcare provider or pharmacist which ojxa-uml-xgbpjeo medicine to use. Don't use decongestants if you have high blood pressure. Follow-up care Follow up with your healthcare provider, or as advised. When to seek medical advice Call your healthcare provider right away if any of these occur: Cough with lots of colored sputum (mucus) Severe headache; face, neck, or ear pain Difficulty swallowing due to throat pain Fever of 100.4 F (38 C) or higher, or as directed by your healthcare provider Call 911 Call 911 if any of these occur: Chest pain, shortness of breath, worsening wheezing, or difficulty breathing Coughing up blood Very severe pain when swallowing, especially if it goes along with a muffled voice [phone] [employer]. [address] [place] [address]. All rights reserved. This information is not intended as a substitute for professional medical care. Always follow yourhealthcare professional's instructions. Additional Information VACCINATE! IT SAVES LIVES! Members of the community who have not yet received the COVID-19 vaccine and would like to receive it can visit one of [facility] vaccine clinics. There are many vaccine clinic locations within the [facility]. For locations and available times, please visit www.gettheshot.coronavirus.[place].gov/. It is important to note that some COVID mobile vaccine clinics are held outdoors and may be canceled in rainy or stormy conditions. To learn more about pediatric vaccinations (ages 5-11), we invite you to visit the [facility] webpage. https://www.[email or web address].org/pages/8800-Awzwu-Ymvqnmfdzuv-Xzkvwbapbg-Tbcny-Uxi stions.htmlTo learn more about the COVID-19 vaccine, we invite you to visit the CDC website for a list of frequently asked questions. https://www.cdc.gov/coronavirus/2019-ncov/vaccines/faq.html [facility] Patient Portal Access Instructions: Stay connected with your healthcare team and access your personal medical information anytime with the [facility] Patient Portal. If you would like a full copy of your medical records please c (more content not included)... [facility]10-25-2024 Note ORIGINAL EXAMINATION: ONE XRAY VIEW OF THE CHEST 09/03/2024 10:25 am COMPARISON: 07/25/2024 HISTORY: ORDERING SYSTEM PROVIDED HISTORY: Reason for Exam: SOB/cough/fever FINDINGS: Lordotic image shows top-normal cardiac size with a left ventricular configuration. There is no acute alveolar, interstitial or pleural process. IMPRESSION: 1. No acute chest process. 2. Borderline cardiomegaly. Interpreted by: Ayush Fam DO Preliminary Report By: Ayush Fam DO Electronically signed By Ayush Fam DO Dictated Date: 09/03/2024 10:53:15 AM Prelim Date: 09/03/2024 11:11:10 AM Sign Date: 09/03/2024 11:11:10 AM [facility]ing [facility] Sinus tachycardia Ventricular premature complex Probable left atrial enlargement Electronic Signature: VÍCTOR CHEN MD 09/03/2024 09:40:33[facility] 09-17-2024 Hospital Discharge instructions Patient Education 07/27/2024 11:52:10 Coronary Artery Disease, Male Coronary Artery Disease, Male Coronary artery disease (CAD) is a condition in which the arteries that lead to the heart (coronaryarteries) become narrow or blocked. The narrowing or blockage can lead to decreased blood flow to the heart. Prolonged reduced blood flow can cause a heart attack (myocardial infarction or NH). This condition may also be called coronary heart disease. Because CAD is the leading cause of in men, it is important to understand what causes this condition and how it is treated. What are the causes? CAD is most often caused by atherosclerosis. This is the buildup of fat and cholesterol (plaque) onthe inside of the arteries. Over time, the plaque may narrow or block the artery, reducing blood flow to the heart. Plaque can also become weak and break off within a coronary artery and cause a sudden blockage. Other less common causes of CAD include: A blood clot or a piece of a blood clot or other substance that blocks the flow of blood in a coronary artery (embolism). A tearing of the artery (spontaneous coronary artery dissection). An enlargement of an artery (aneurysm). Inflammation (vasculitis) in the artery wall. What increases the risk? The following factors may make you more likely to develop this condition: Age. Men over age 45 are at a greater risk of CAD. Family history of CAD. Gender. Men often develop CAD earlier in life than women. High blood pressure (hypertension). Diabetes. High cholesterol levels. Tobacco use. Excessive alcohol use. Lack of exercise. A diet high in saturated and trans fats, such as fried food and processed meat. Other possible risk factors include: High stress levels. Depression. Obesity. Sleep apnea. What are the signs or symptoms? Many people do not have any symptoms during the early stages of CAD. As the condition progresses, symptoms may include: Chest pain (angina). The pain can: ?Feel like crushing or squeezing, or like a tightness, pressure, fullness, or heaviness in the chest. ?Last more than a few minutes or can stop and recur. The pain tends to get worse with exercise or stress and to fade with rest. Pain in the arms, neck, jaw, ear, or back. Unexplained heartburn or indigestion. Shortness of breath. Nausea or vomiting. Sudden light-headedness. Sudden cold sweats. Fluttering or fast heartbeat (palpitations). How is this diagnosed? This condition is diagnosed based on: Your family and medical history. A physical exam. Tests, including: ?A test to check the electrical signals in your heart (electrocardiogram). ?Exercise stress test. This looks for signs of blockage when the heart is stressed with exercise, such as running on a treadmill. ?Pharmacologic stress test. This test looks for signs of blockage when the heart is being stressed with a medicine. ?Blood tests. ?Coronary angiogram. This is a procedure to look at the coronary arteries to see if there is any blockage. During this test, a dye is injected into your arteries so they appear on an X-ray. ?Coronary artery CT scan. This CT scan helps detect calcium deposits in your coronary arteries. Calcium deposits are an indicator of CAD. ?A test that uses sound waves to take a picture of your heart (echocardiogram). ?Chest X-ray. How is this treated? This condition may be treated by: Healthy lifestyle changes to reduce risk factors. Medicines such as: ?Antiplatelet medicines and blood-thinning medicines, such as aspirin. These help to prevent blood clots. ?Nitroglycerin. ?Blood pressure medicines. ?Cholesterol-lowering medicine. Coronary angioplasty and stenting. During this procedure, a thin, flexible tube is inserted througha blood vessel and into a blocked artery. A balloon or similar device on the end of the tube is inflated to open up the artery. In some cases, a small, mesh tube (stent) is inserted into the artery to keep it open. Coronary artery bypass surgery. During this surgery, veins or arteries from other parts of the bodyare used to create a bypass around the blockage and allow blood to reach your heart. Follow these instructions at home: Medicines Take ofgd-zha-dzfygeh and prescription medicines only as told by your health care provider. Do not take the following medicines unless your health care provider approves: ?NSAIDs, such as ibuprofen, naproxen, or celecoxib. ?Vitamin supplements that contain vitamin A, vitamin E, or both. Lifestyle Follow an exercise program approved by your health care provider. Aim for 150 minutes of moderate exercise or 75 minutes of vigorous exercise each week. Maintain a healthy weight or lose weight as approved by your health care provider. Learn to manage stress or try to limit your stress. Ask your health care provider for suggestions if you need help. Get screened for depression and seek treatment, if needed. Do not use any products that contain nicotine or tobacco, such as cigarettes, e- cigarettes, and chewing tobacco. If you need help quitting, ask your health care provider. Do not use illegal drugs. Eating and drinking Follow a heart-healthy diet. A dietitian can help educate you about healthy food options and changes. In general, eat plenty of fruits and vegetables, lean meats, and whole grains. Avoid foods high in: ?Sugar. ?Salt (sodium). ?Saturated fat, such as processed or fatty meat. ?Trans fat, such as fried foods. Use healthy cooking methods such as roasting, grilling, broiling, baking, poaching, steaming, or stir-frying. Do not drink alcohol if your health care provider tells you not to drink. If you drink alcohol: ?Limit how much you have to 0 2 drinks per day. ?Be aware of how much alcohol is in your drink. In the [place] one drink equals one 12 oz bottle of beer (355 mL), one 5 oz glass of wine (148 mL), or one 1 oz glass of hard liquor (44 mL). General instructions Manage any other health conditions, such as hypertension and diabetes. These conditions affect yourheart. Your health care provider may ask you to monitor your blood pressure. Ideally, your blood pressure should be below 130/80. Keep all follow-up visits as told by your health care provider. This is important. Get help right away if: You have pain in your chest, neck, ear, arm, jaw, stomach, or back that: ?Lasts more than a few minutes. ?Is recurring. ?Is not relieved by taking medicine under your tongue (sublingual nitroglycerin). You have profuse sweating without cause. You have unexplained: ?Heartburn or indigestion. ?Shortness of breath or difficulty breathing. ?Fluttering or fast heartbeat (palpitations). ?Nausea or vomiting. ?Fatigue. ?Feelings of nervousness or anxiety. ?Weakness. ?Diarrhea. You have sudden light-headedness or dizziness. You faint. You feel like hurting yourself or think about taking your own life. These symptoms may represent a serious problem that is an emergency. Do not wait to see if the symptoms will go away. Get medical help right away. Call your local emergency services (911 in the [place] Do not drive yourself to the hospital. Summary Coronary artery disease (CAD) is a condition in which the arteries that lead to the heart (coronaryarteries) become narrow or blocked. The narrowing or blockage can lead to a heart attack. Many people do not have any symptoms during the early stages of CAD. CAD can be treated with lifestyle changes, medicines, surgery, or a combination of these treatments. This information is not intended to replace advice given to you by your health care provider. Make sure you discuss any questions you have with your health care provider. Document Released: 05/24/2015 Document Revised: 07/16/2019 Document Reviewed: 07/06/2019 [employer] Patient Education 2020 M2G. Follow Up Care 07/25/2024 14:20:08 With:PAVEL PEREZ MD Address: [address] [facility] [place] [address] [phone] When:Within 1 Month(s) With:MICHAEL OTOOLE Address: [address] [facility] [place] [address] [phone] Business (1) When:5 to 7 days With:Cardiac Rehab [facility] Address: [facility] [address] [place] [address]- When: Unknown Comments:The Cardiac rehab department will call you to schedule you for Phase 2. If you have any questions please call us at [phone]. Thank you. [facility] 09-17-2024 Discharge summary Date of Service 07/27/2024 Discharge Diagnosis Acute exacerbation of HFrEF (EF 40 to 45%) Type II NH Systemic hypertension Methamphetamine abuse Class III obesity Hospital Course This is a 38-year-old male that is a transfer from [facility], who presented with shortness of breath and chest pain that has been ongoing for a week but got progressively worse on the day of admission. Past medical history is notable for CAD s/p PCI with stenting to RCA, hypertension, current methamphetamine use, tobacco abuse, alcohol use, obesity. Patient presented with chest pain, diaphoresis that was similar to the pain he had with a heart attack approximately a year ago. This was associated with dyspnea on exertion. Patient had not been taking any of his medications during the past month due to loss of insurance. His last use of methamphetamine was the morning of the day of presentation. In the ED, pertinent lab and imaging testing were performed. Vitals were notable for BP 144/96. Labwork showed proBNP 980, troponins trending 141-127. Drug screen was positive for amphetamines. Chest x-ray showed poor inspiratory effort effort but no acute airspace disease. EKG showed sinus tachycardia. Patient was treated for a possible NSTEMI with left heart catheterization, which showed patency of his previous stent and minimal CAD. For concerns of heart failure exacerbation, the patient was diursed with IV lasix and restarted on his home GDMT. The patient also spoke with social work, and obtained resources and vouchers to helpwith access to medications. At this time the patient is hemodynamically stable, clinical improved and ready for discharge to home. -His Entresto dose has been decreased to 49-51 mg BID. His Coreg has been increased to 6.25 mg BID for better blood pressure control. His Jardiance was stopped due to cost concerns, instead he has been started on Farxiga 10 mg qd. He has also been started on spironolactone 25 mg QD for further optimization of heart failure management. -He has been counseled on the importance of medication compliance and cessation of methamphetamine use. -He is to complete a BMP and magnesium level with 1 week of discharge to assess his electrolytes. -He is to follow up with his PCP in 1 week and program and research coordinator in 1 month. Allergies No Known Medication Allergies Procedures Left heart catheterization Consults No qualifying data available. Objective Vitals and Measurements T: 36.2 C (Oral) TMIN: 36.2 C (Oral) TMAX: 36.7 C (Oral) HR: 79 (Monitored) RR: 18 BP: 167/101 SpO2: 96% Weight Dosing Weight: 180.2 kg (07/25/24) General: Alert, no acute distress HEENT: Atraumatic & normocephalic. PERRLA. No papilledema. Tympanic membrane clear. Nasal mucosa patent & w/ no discharge. Oropharynx clear. Neck: supple, no carotid bruits, no JVD Heart: RRR, no heart murmurs Lungs: CTA bilaterally, no wheezes/rales/rhonchi, normal respiratory effort Abdomen: bowel sounds normoactive, soft, non-tender Extremities: 2+ radial pulses, 2+ doralis pedis pulses, atraumatic and non-edematous Neuro: AOx4. Pending Labs and Studies None Code Status Code Status - Ordered -- 07/25/24 20:23:00 EDT, Full Code, Constant Order Admission Date 07/26/2024 Discharge Date 07/27/2024 Patient Instructions You have been prescribed the following 4 medications for your heart failure: Entresto, Farxiga, Coreg, Aldactone. Please remain compliant with your medications, and take them as they have been prescribed. Please avoid methamphetamine use. Please follow-up with your PCP within a week and your program and research coordinator within 1 month. Thank you allowing us participate in your care. Medications New Prescription carvedilol (Coreg 6.25 mg oral tablet)1 tab(s) by mouth two (2) times a day. Refills: 0. dapagliflozin (Farxiga 10 mg oral tablet)1 tab(s) by mouth once a day. Refills: 0. spironolactone (Aldactone 25 mg oral tablet)0.5 tab(s) by mouth once a day. Refills: 0. Changed atorvastatin (atorvastatin 40 mg oral tablet)1 tab(s) by mouth once a day. Refills: 0. sacubitril-valsartan (Entresto 49 mg-51 mg oral tablet)1 tab(s) by mouth two (2) times a day. Refills: 0. Unchanged aspirin (aspirin 81 mg oral tablet, chewable)1 tab(s) by mouth once a day with a meal. Refills: 2. cholecalciferol (Vitamin D3 1250 mcg (50,000 intl units) oral capsule)1 cap by mouth every week. restest Vit D 06/24/24. Refills: 0. Discontinued cloNIDine (cloNIDine 0.1 mg oral tablet)1 tab(s) by mouth three (3) times a day as needed Hypertensive episodes. Take for BP > 180 systolic or > 100 diastolic, or 30-60 min before stressful events. Refills: 1. empagliflozin (Jardiance 10 mg oral tablet)1 tab(s) by mouth once a day (in the morning). Refills: 3. pantoprazole (Protonix 40 mg oral enteric coated tablet)1 tab(s) by mouth every other day for 10 Days. Take every other day x 10 days then stop. Ok to stop any future Rx from Pharmacy, we are discontinuing. Refills: 0. prasugrel (prasugrel 10 mg oral tablet)1 tab(s) by mouth once a day. Refills: 1. tadalafil (tadalafil 10 mg oral tablet)1 tab(s) by mouth once a day. Refills: 0. testosterone (AndroGel 1.62% Pump (20.25 mg/1.25 g) topical gel)1 pump(s) Topical once a day (in the morning) for 30 Days. apply to clean, dry, intact skin, wash hands thoroughly after application. Refills: 1. Follow Up Follow Up with PAVEL PEREZ MD When:In 1 month Where:[address] [facility] [place] [address] [phone] Follow Up with MICHAEL OTOOLE When:Within 5 to 7 days Where:[address] [facility] [place] [address]- [phone] Business (1) Follow Up with [facility] Where:[facility] [address] [place] [address]- Additional Information: The Cardiac rehab department will call you to schedule you for Phase 2. If you have any questions please call us at [phone]. Thank you. Follow Up Appointments No qualifying data available. Follow Up Labs/Studies Discharge Labs Discharge Outpatient Labwork - Ordered -- BMP, Magnesium Levels, on diuretics, follow-up within: 5-7 days, 07/27/24 11:40:00 EDT Discharge Studies No Follow-up Studies Discharge Diet Discharge Diet - Ordered -- Sodium limit: Low, No changes were made to your diet during your hospital stay. Please resume your pre hospitalization diet on discharge., 07/27/24 11:40:00 EDT Discharge Fluid Restriction - Ordered -- 1,800 ml/day Discharge Activity Discharge Activity - Ordered -- Lifting Restricted less than 5 pounds, In right wrist; for 5 days., 07/27/24 11:40:00 EDT Condition on Discharge Guarded Readmission Risk/Palliative Score LACE Score: 14 (07/26/24 08:32:00) Palliative Total Score: 2 (07/26/24 08:32:00) Discharge Disposition Home Information Provided To Patient Digitally Signed by CIRO SUBRAMANIAN MD on 07/27/2024 12:24 PM Digitally Signed by YASEMIN NEGRON [id number] Note Discharge Instructions Thank you for allowing [facility] to assist you with your healthcare needs. The following is importantdischarge information regarding your hospital visit. Your Care Team MICHAEL OTOOLE DO What to do next Instructions From Your Doctor Patient be on the following 4 medications for your heart failure: Entresto, Farxiga, Coreg, Aldactone. Please remain compliant with your medications, and avoid methamphetamine use. Please follow-up with your PCP within a week and your program and research coordinator within 1 month. Thank you allowing us participate in your care. Follow Up Appointments Follow Up with PAVEL PEREZ MD When:In 1 month Where:[address] [facility] [address] [facility] [place] [address] [phone] Follow Up with MICHAEL OTOOLE When:Within 5 to 7 days Where:[address] [facility] [place] [address] [phone] Business (1) Follow Up with [facility] Where:[facility] [address] [place] [address]- Additional Information: The Cardiac rehab department will call you to schedule you for Phase 2. If you have any questions please call us at [phone]. Thank you. The Following Activity and Diet Have Been Ordered for You Discharge Activity - Ordered -- Lifting Restricted less than 5 pounds, In right wrist; for 5 days., 07/27/24 11:40:00 EDT Discharge Diet - Ordered -- Sodium limit: Low, No changes were made to your diet during your hospital stay. Please resume your pre hospitalization diet on discharge., 07/27/24 11:40:00 EDT Discharge Fluid Restriction - Ordered -- 1,800 ml/day The Following Equipment Has Been Ordered for You No qualifying data available. The Following Treatments Have Been Ordered for You Discharge Labs Discharge Outpatient Labwork - Ordered -- BMP, Magnesium Levels, on diuretics, follow-up within: 5-7 days, 07/27/24 11:40:00 EDT Discharge Radiology No qualifying data available. Other Therapies No qualifying data available. Post Acute Orders No qualifying data available. Someone Will Contact You Regarding These Home Health Referrals No home referrals have been ordered for you. No one will call you. Allergies No Known Medication Allergies Medications Please ask your primary doctor or pharmacist before taking any other medication not listed, including over the counter drugs, herbal medications, vitamins and or supplements as they may interact withyour home medications. What How Much When Why Instructions Last Dose New carvedilol (Coreg 6.25 mg oral tablet) 1 tab(s) by mouth Two (2) times a day Pickup at [facility] New dapagliflozin (Farxiga 10 mg oral tablet) 1 tab(s) by mouth Once a day Pickup at [facility] New spironolactone (Aldactone 25 mg oral tablet) 0.5 tab(s) by mouth Once a day Pickup at [facility] Changed atorvastatin (atorvastatin 40 mg oral tablet) 1 tab(s) by mouth Once a day Pickup at [facility] Changed sacubitril-valsartan (Entresto 49 mg-51 mg oral tablet) 1 tab(s) by mouth Two (2) times a day Pickup at [facility] Unchanged aspirin (aspirin 81 mg oral tablet, chewable) 1 tab(s) by mouth Once a day with a meal Pickup at [facility] Unchanged cholecalciferol (Vitamin D3 1250 mcg (50,000 intl units) oral capsule) 1 cap by mouth Every week Hypersomnia Vitamin D insufficiency restest Vit D Pharmacy Information [facility]: [address] [place] [address] [phone] What How Much When Why Comments Stop Taking cloNIDine (cloNIDine 0.1 mg oral tablet) 1 tab(s) by mouth Three (3) times a day as needed for Hypertensive episodes (HFpEF) heart failure with preserved ejection fraction History of NH (myocardial infarction), 07/2023 Take for BP > 180 systolic or > 100 diastolic, or 30-60 min before stressful events Stop Taking empagliflozin (Jardiance 10 mg oral tablet) 1 tab(s) by mouth Once a day (in the morning) Stop Taking pantoprazole (Protonix 40 mg oral enteric coated tablet) 1 tab(s) by mouth Every other day Duration: 10 Days Take every other day x 10 days then stop. Ok to stop any future Rx from Pharmacy, we are discontinuing Stop Taking prasugrel (prasugrel 10 mg oral tablet) 1 tab(s) by mouth Once a day Stop Taking tadalafil (tadalafil 10 mg oral tablet) 1 tab(s) by mouth Once a day (HFpEF) heart failure with preserved ejection fraction History of NH (myocardial infarction), 07/2023 Stop Taking testosterone (AndroGel 1.62% Pump (20.25 mg/ 1.25 g) topical gel) 1 pump(s) Topical Once a day (in the morning) Low testosterone Duration: 30 Days apply to clean, dry, intact skin, wash hands thoroughly after application Please take this list to your next doctor s visit. Bring all medications you take, including over the counter medications, herbals and other supplements with you to your doctor s visit. Patients and families are reminded to discard old lists and to update any records with all medication providers or retail pharmacies. Education Materials Coronary Artery Disease, Male Coronary artery disease (CAD) is a condition in which the arteries that lead to the heart (coronaryarteries) become narrow or blocked. The narrowing or blockage can lead to decreased blood flow to the heart. Prolonged reduced blood flow can cause a heart attack (myocardial infarction or NH). This condition may also be called coronary heart disease. Because CAD is the leading cause of in men, it is important to understand what causes this condition and how it is treated. What are the causes? CAD is most often caused by atherosclerosis. This is the buildup of fat and cholesterol (plaque) onthe inside of the arteries. Over time, the plaque may narrow or block the artery, reducing blood flow to the heart. Plaque can also become weak and break off within a coronary artery and cause a sudden blockage. Other less common causes of CAD include: A blood clot or a piece of a blood clot or other substance that blocks the flow of blood in a coronary artery (embolism). A tearing of the artery (spontaneous coronary artery dissection). An enlargement of an artery (aneurysm). Inflammation (vasculitis) in the artery wall. What increases the risk? The following factors may make you more likely to develop this condition: Age. Men over age 45 are at a greater risk of CAD. Family history of CAD. Gender. Men often develop CAD earlier in life than women. High blood pressure (hypertension). Diabetes. High cholesterol levels. Tobacco use. Excessive alcohol use. Lack of exercise. A diet high in saturated and trans fats, such as fried food and processed meat. Other possible risk factors include: High stress levels. Depression. Obesity. Sleep apnea. What are the signs or symptoms? Many people do not have any symptoms during the early stages of CAD. As the condition progresses, symptoms may include: Chest pain (angina). The pain can: ? Feel like crushing or squeezing, or like a tightness, pressure, fullness, or heaviness in the chest. ? Last more than a few minutes or can stop and recur. The pain tends to get worse with exercise or stress and to fade with rest. Pain in the arms, neck, jaw, ear, or back. Unexplained heartburn or indigestion. Shortness of breath. Nausea or vomiting. Sudden light-headedness. Sudden cold sweats. Fluttering or fast heartbeat (palpitations). How is this diagnosed? This condition is diagnosed based on: Your family and medical history. A physical exam. Tests, including: ? A test to check the electrical signals in your heart (electrocardiogram). ? Exercise stress test. This looks for signs of blockage when the heart is stressed with exercise, such as running on a treadmill. ? Pharmacologic stress test. This test looks for signs of blockage when the heart is being stressed with a medicine. ? Blood tests. ? Coronary angiogram. This is a procedure to look at the coronary arteries to see if there is any blockage. During this test, a dye is injected into your arteries so they appear on an X-ray. ? Coronary artery CT scan. This CT scan helps detect calcium deposits in your coronary arteries. Calcium deposits are an indicator of CAD. ? A test that uses sound waves to take a picture of your heart (echocardiogram). ? Chest X-ray. How is this treated? This condition may be treated by: Healthy lifestyle changes to reduce risk factors. Medicines such as: ? Antiplatelet medicines and blood-thinning medicines, such as aspirin. These help to prevent blood clots. ? Nitroglycerin. ? Blood pressure medicines. ? Cholesterol-lowering medicine. Coronary angioplasty and stenting. During this procedure, a thin, flexible tube is inserted througha blood vessel and into a blocked artery. A balloon or similar device on the end of the tube is inflated to open up the artery. In some cases, a small, mesh tube (stent) is inserted into the artery to keep it open. Coronary artery bypass surgery. During this surgery, veins or arteries from other parts of the bodyare used to create a bypass around the blockage and allow blood to reach your heart. Follow these instructions at home: Medicines Take [id number]-emsycpe and prescription medicines only as told by your health care provider. Do not take the following medicines unless your health care provider approves: ? NSAIDs, such as ibuprofen, naproxen, or celecoxib. ? Vitamin supplements that contain vitamin A, vitamin E, or both. Lifestyle Follow an exercise program approved by your health care provider. Aim for 150 minutes of moderate exercise or 75 minutes of vigorous exercise each week. Maintain a healthy weight or lose weight as approved by your health care provider. Learn to manage stress or try to limit your stress. Ask your health care provider for suggestions if you need help. Get screened for depression and seek treatment, if needed. Do not use any products that contain nicotine or tobacco, such as cigarettes, e- cigarettes, and chewing tobacco. If you need help quitting, ask your health care provider. Do not use illegal drugs. Eating and drinking Follow a heart-healthy diet. A dietitian can help educate you about healthy food options and changes. In general, eat plenty of fruits and vegetables, lean meats, and whole grains. Avoid foods high in: ? Sugar. ? Salt (sodium). ? Saturated fat, such as processed or fatty meat. ? Trans fat, such as fried foods. Use healthy cooking methods such as roasting, grilling, broiling, baking, poaching, steaming, or stir-frying. Do not drink alcohol if your health care provider tells you not to drink. If you drink alcohol: ? Limit how much you have to 0 2 drinks per day. ? Be aware of how much alcohol is in your drink. In the [place] one drink equals one 12 oz bottle of beer (355 mL), one 5 oz glass of wine (148 mL), or one 1 oz glass of hard liquor (44 mL). General instructions Manage any other health conditions, such as hypertension and diabetes. These conditions affect yourheart. Your health care provider may ask you to monitor your blood pressure. Ideally, your blood pressure should be below 130/80. Keep all follow-up visits as told by your health care provider. This is important. Get help right away if: You have pain in your chest, neck, ear, arm, jaw, stomach, or back that: ? Lasts more than a few minutes. ? Is recurring. ? Is not relieved by taking medicine under your tongue (sublingual nitroglycerin). You have profuse sweating without cause. You have unexplained: ? Heartburn or indigestion. ? Shortness of breath or difficulty breathing. ? Fluttering or fast heartbeat (palpitations). ? Nausea or vomiting. ? Fatigue. ? Feelings of nervousness or anxiety. ? Weakness. ? Diarrhea. You have sudden light-headedness or dizziness. You faint. You feel like hurting yourself or think about taking your own life. These symptoms may represent a serious problem that is an emergency. Do not wait to see if the symptoms will go away. Get medical help right away. Call your local emergency services (911 in the [place] Do not drive yourself to the hospital. Summary Coronary artery disease (CAD) is a condition in which the arteries that lead to the heart (coronaryarteries) become narrow or blocked. The narrowing or blockage can lead to a heart attack. Many people do not have any symptoms during the early stages of CAD. CAD can be treated with lifestyle changes, medicines, surgery, or a combination of these treatments. This information is not intended to replace advice given to you by your health care provider. Make sure you discuss any questions you have with your health care provider. Document Released: 05/24/2015 Document Revised: 07/16/2019 Document Reviewed: 07/06/2019 [employer] Patient Education 2020 M2G. Additional Information VACCINATE! IT SAVES LIVES! Members of the community who have not yet received the COVID-19 vaccine and would like to receive it can visit one of [facility] vaccine clinics. There are many vaccine clinic locations within the [facility]. For locations and available times, please visit [email or web address].[place].gov/. It is important to note that some COVID mobile vaccine clinics are held outdoors and may be canceled in rainy or stormy conditions. To learn more about pediatric vaccinations (ages 5-11), we invite you to visit the [facility] webpage. [email or web address] learn more about the COVID-19 vaccine, we invite you to visit the CDC website for a list of frequently asked questions.https://www.cdc.gov/coronavirus/2019-ncov/vaccines/faq.html [facility] Patient Portal Access Instructions: Stay connected with your healthcare team and access your personal medical information anytime with the [facility] Patient Portal. Please follow the directions below to create your [facility] account: 1.Access the email account you provided upon registration to the hospital/physician office.2.Look for an invitation email from [facility].3.Open the email and access the invitation link: [facility].4.Fill in the required hou to create your account. To access your account, visit [email or web address]. Click the blue button labeled Access Patient Portal and then log in with the username and password that you created in the steps above. You will be able to view your test results, lab results, a summary of your visits, upcoming appointments and more. There is also a convenient messaging option where you can send secure messages to your p rovider. In addition, you will have the ability to download any documents or summaries to your computer and/or send the information securely to a physician. Remember that your healthcare information is confidential, so carefully consider who you will allowto register on the [facility] Patient Portal for access to your information. You can also access the [facility] Patient Portal on the [facility] denae. Simply click on Patient Portal and then log into your account. If you would like to receive a full copy of your medical records, please contact the [facility] Medical Records Department by calling [phone], Friday through Friday between 8 a.m. and 4:30 p.m. HOW TO SAFELY DISPOSE OF PRESCRIPTION MEDICATIONS Please use one of the following methods to safely dispose of your unused medications. 1.Use a drug disposal kit: the drug disposal pouch allows you to safely discard your old and unuseddrugs. Ask your nurse to give you one when you are discharged.2.Visit a local take-back location: Many local pharmacies and police departments have programs that collect old and unwanted prescriptiondrugs. Call your local pharmacy or go to http://bit.ly/8Z3Qj4m to find one close to you.3.Make use of household items: Use cat litter or old coffee grounds to dispose medications if other options arenot available. Mix your drugs with these household products, seal them in an airtight container andthrow it into the garbage. Call [facility]: [phone] to be sure your drugs can be disposed of in this way. Some medicines may require a different approach.4.Never flush your medications down the toilet. IF YOU HAVE BEEN PRESCRIBED AN OPIOID FOR PAIN If you have been prescribed an opioid (such as hydrocodone, oxycodone or morphine), it is critical to understand the possible side effects and risks of opioid pain medications. Even when taken as directed, opioids can have several side effects including: Tolerance, meaning you might need to take more of a medication for the same pain relief. Nausea, vomiting and/or constipation. Sleepiness, dizziness, dry mouth, confusion, depression or itching. Physical dependence, meaning you have withdrawal symptoms when a medication is stopped, can develop within a few days. KNOW YOUR RESPONSIBILITIES It is important to know exactly how much and how often to take the opioid pain medications you are prescribed. Never take opioids in higher amounts or more often than prescribed. Do not combine opioids with alcohol or other drugs that cause drowsiness, such as benzodiazepines, also known as benzos, including diazepam and alprazolam, muscle relaxants or sleep aids. Never sell or share prescription opioids. This is illegal. Store opioids in a secure place and out of reach of others (including children, family, friends and visitors). The last page of this document has been signed and retained as a CHART COPY. Signatures Patient Education Materials Coronary Artery Disease, Male Medication Leaflets My discharge plan and instructions have been reviewed and explained to me and I,PANCHO LOPEZ understand my current condition and have read and understand these discharge instructions. I have received a written copy of the plan/instructions. If I have questions, I am aware that I should contact my doctor. 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 Patient was lying on bed and was answering to questions. States that he has been short of breath for the past few months which has worsened since he stopped taking medication because of insurance issue. Patient mentions that he continues to use methamphetamine every day. Objective Vitals and Measurements T: 36.7 C (Oral) TMIN: 36.7 C (Oral) TMAX: 37.1 C (Oral) HR: 77 (Monitored) RR: 16 BP: 154/108 SpO2: 97% HT: 198.1 cm WT: 180.2 kg BMI: 45.92 Intake and Output 7AM Yesterday to 7AM Today Intake and Output (Last 24 hours) Intake Oral Intake 100.00 Administration Information 39.33 Output Urine Voided 1.00 Total Summary Total Intake 139.33 Total Output 1.00 Fluid Balance 138.33 Physical Exam General: Awake alert cooperative, anxious, obese HEENT: Head normocephalic atraumatic. Oral mucosa looks dry Neck: Trachea is midline. normal ROM. Cardiovascular: S1-S2 present, regular rhythm, no murmur. Respiratory: Clear to auscultation, no wheezes, rhonchi or rales. Abdomen: Soft, distended, no rigidity, no guarding, no rebound. Extremities: No deformity. 2+ pitting edema bilaterally up until knee Neurologic: Speech normal. Psych: normal affect. Skin: Warm and dry. Weight Dosing Weight: 180.2 kg (07/25/24) Medications Medications (19) Active Scheduled: (7) aspirin 81 mg Chewable 81 mg 1 tab(s), Oral, qDayM atorvastatin 40 mg tablet 40 mg 1 tab(s), Oral, qDay carvedilol 3.125 mg tablet 3.125 mg 1 tab(s), Oral, BIDM empagliflozin 10 mg tablet 10 mg 1 tab(s), Oral, qAM furosemide 40 mg/4 mL vial 40 mg 4 mL, IV Push, BID pantoprazole 40 mg EC tablet 40 mg 1 tab(s), Oral, Every other day sacubitril-valsartan 49-51mg oral tablet 1 tab(s), Oral, BID Continuous: (1) heparin 25,000 unit(s) + Dextrose 5% Premix Diluent 250 mL 250 mL, Intravenous, 10 mL/hr PRN: (11) acetaminophen 325 mg Tablet 650 mg 2 tab(s), Oral, q6hr dextrose 50% Solution Disp syringe 50 mL 12.5 gram(s) 25 mL, IV Push, AsDirected heparin 5,000 units/mL (1 mL) vial 4,000 unit(s) 0.8 mL, IV Push, q6h magnesium sulfate 4 gram(s)/100mL PMX 4 g 100 mL, IV Piggyback, AsDirected magnesium sulfate 50% (500mg/mL) 6 g 12 mL, IV Piggyback, AsDirected magnesium sulfate PMX 2 g 50 mL, IV Piggyback, AsDirected melatonin 3 mg tablet 3 mg 1 tab(s), Oral, qHS potassium chloride (PMX) 20 mEq/100 mL 20 mEq 100 mL, IV Piggyback, AsDirected potassium chloride 20 mEq ER tablet 20 mEq 1 tab(s), Oral, AsDirected potassium chloride 20 mEq ER tablet 40 mEq 2 tab(s), Oral, AsDirected potassium chloride 20 mEq ER tablet 40 mEq 2 tab(s), Oral, AsDirected Lab Results 07/26 02:37 WBC: 8.1 Hgb: 14.5 Hct: 41.7 Platelet: 237 Neutrophil %: 54.4 Protime: 10.1 PT International Ratio: 0.9 Glucose Level: 142 H Sodium Level: 140 Potassium Level: 3.9 BUN: 13.0 Creatinine Lvl (s): 1.02 07/25 21:58 WBC: 8.0 Hgb: 14.7 Hct: 42.5 Platelet: 256 Neutrophil %: 54.3 Glucose Level: 133 H Sodium Level: 141 Potassium Level: 3.9 BUN: 14.0 Creatinine Lvl (s): 1.05 Imaging Results and Diagnostics CXR 07/25/24 IMPRESSION: 1. Poor inspiratory effort. 2. No acute airspace disease. EKG Electrocardiogram (EKG) - [facility] -- 07/25/24 19:37:00 EDT Assessment/Plan Acute exacerbation of HFrEF (EF 40 to 45%) Type II NH Systemic hypertension History of CAD status post PCI to RCA in 07/2023 Methamphetamine abuse, tobacco abuse Class III obesity CODE STATUS DVT prophylaxis 38-year-old gentleman with above-mentioned comorbidities presented with worsening of dyspnea on exertion for the last 2 to 3 months. Patient has been not taking his medication for the last 1 and halfmonths because of affordability issue. Upon initial evaluation patient was found to be in volume overload state for which she has been started on IV Lasix 40 twice daily. Will continue the same. Initial part of GDMT has been resumed with medium dose Entresto and Jardiance. Will continue to monitor blood pressure. Also initiated patient on Coreg 3.125 and will titrate according to blood pressure. Troponins were elevated at 141-127-143. No signs of chest pain however patient has history of CAD and hence we will proceed with obtaining a left heart cath to rule out significant coronary obstruction. Will continue on IV heparin until cath results. Will continue on aspirin and atorvastatin. HbA1c done during this admission showed a results 6.4. Patient mentioned that he underwent sleep study on outpatient basis and MURRAY was ruled out however no records available. Case management has been consulted to help with medication affordability issue. Appreciate their recommendation. CODE STATUS full code DVT prophylaxis heparin IV Anticipated Date of Discharge 1 to 2 days Digitally Signed by FAIZAN PRIEST MD on 07/26/2024 11:46 AM Digitally Signed by YASEMIN NEGRON MD [id number] History and physical note Date of Service 07/25/2024 Chief Complaint pt c/o SOB and chest pain over past week, but states it got worse last night. Pt states he has HX of NH with stent placement this year. Pt also states he does methamphetamine frequently, with this ambeing last time. History of Present Illness Patient comes as a transfer from [facility]. 38-year-old male presenting with shortness of breath and chest pain that has been ongoing for a week but got progressively worse today 11am. Patientstates he had a heart attack about a year ago that required 1 stent to the RCA. PMH also significant for hypertension, current methamphetamine use, tobacco abuse, past alcohol abuse, and obesity. He states he feels like he is having a heart attack again. Denying chest pain but did initially endorseleft arm pain, diaphoresis. States he gets short of breath with exertion and that he lives in the basement and has to take break upon taking the stairs up to the ground level. He had cardiac cath done in July 2023 which was when he had his RCA stent placed. He had an echo done in November 2023 which showed an EF of 40 to 45%. Patient follows with [facility], Dr. Perez. He is supposed to be taking aspirin, Plavix, Entresto and Jardiance, Norvasc but has been not taking any medication for the past month due to losing his insurance. He states he is in the process of trying to get it reinstated. He also endorses methamphetamine use and states he used some today around 9 AM. He states he snortsit and his doctor is aware that he uses it. Also admits to smoking half a pack of cigarettes daily.Denies alcohol or marijuana use. He is endorsing weight gain. States he was at 100 pounds the last when he had his first heart attack. Denies any decreased p.o. intake, does endorse diarrhea but states that normal for him since he has dumping syndrome after a gallbladder removal. Vitals on presentation Temperature 37, heart rate 90, respirations 18, blood pressure 144/96 saturating 98% on room air. Labs significant for CBC showing white count of 11, hemoglobin 15, platelets 270. PT/INR within normal range. CMP significant for glucose of 127, potassium 4, creatinine 1.37, magnesium 2. CPK 238. proBNP 980. Troponins trending 141 127. Drug screen positive for amphetamine. Chest x-ray shows poor inspiratory effort but no acute airspace disease EKG done at [facility] shows sinus tachycardia. Repeat EKG later showed sinus rhythm Patient Patient was subsequently transferred to [facility] for further management. Previous cardiac workup [facility] July 2023 status post RCA stent Most recent echo November 2023 shows EF 40-45%, hypokinesis of anterior apical myocardium, grade 1 diastolic dysfunction. Moderately calcified mitral valve. Right atrium dilated. Review of Systems Constitutional: Denies any acute distress Cardiovascular: Endorses chest pain Respiratory: Endorses shortness of breath. Gastrointestinal: Denies any constipation or diarrhea Genitourinary: Denies any difficulty with urination Musculoskeletal: Denies any muscle weakness Skin: Denies any rashes or lesions Neurological: Denies any confusion or loss of consciousness Psychiatric: Denies any suicidal ideation, homicidal ideation or mood changes Endocrine: Denies any fatigue, agitation or heat/cold intolerance Physical Exam Vitals and Measurements T: 37.1 C (Oral) HR: 90 (Monitored) RR: 18 BP: 144/96 SpO2: 98% HT: 198.1 cm WT: 180.2 kg BMI: 45.92 Weight Dosing Weight: 180.2 kg (07/25/24) General: Awake alert cooperative, anxious, obese HEENT: Head normocephalic atraumatic. Oral mucosa looks dry Neck: Trachea is midline. normal ROM. Cardiovascular: tachycardic no obvious murmurs appreciated Respiratory: Clear to auscultation, no wheezes, rhonchi or rales. No signs of distress. No accessory muscle use. On Room air. Abdomen: Soft, distended, no rigidity, no guarding, no rebound. Extremities: No deformity. Minimal 1-2+ pitting edema bilaterally Neurologic: Speech normal. Psych: normal affect. Skin: Warm and dry. Lab Results No 36 Hour Lab Data Assessment/Plan NSTEMI Medication noncompliance for past 1 month Positive amphetamine use Hypertension Shortness of breath DVT prophylaxis CODE STATUS History of PCI to RCA 07/2023, EF 40-45% Nov 2023, hypertension, current methamphetamine use, tobacco abuse, past alcohol abuse, and obesity -Given patient's medication noncompliance for past 1 month, we will slowly resume some home medications from today. Resuming aspirin, atorvastatin, Jardiance, Entresto at medium dose -Holding pasugrel, clonidine. Avoid beta-blockers in this patient -Left heart cath ordered for tomorrow. Patient n.p.o. after midnight. Will start patient on a heparin drip with bolus per NSTEMI criteria -Will give Lasix 40 IV once tonight with plans to continue 40 IV twice daily from tomorrow, creatinine at normal range at this time. proBNP is already improved to 580. - goal to maintain K>4 and Mag>2, replete as necessary -will resume other home medications as appropriate DVT PPx: Heparin by weight Code status: Full code Diet: N.p.o. from midnight Problem List/Past Medical History Ongoing (HFpEF) heart failure with preserved ejection fraction Alcoholism in remission since 2012 BMI 40.0-44.9, adult CAD (coronary artery disease) History of epiglottitis History of NH (myocardial infarction), 07/2023 Hypersomnia Increased BMI 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 NSVT (nonsustained ventricular tachycardia) Severe obesity Side effect of drug Historical Systolic heart failure Procedure/Surgical History Echocardiogram: 12/02/23 Echocardiogram: 07/16/23 Catheterization of both left and right heart: 07/11/23 Cardiac stent Entire gallbladder Medications Home Medications (15) Active AndroGel 1.62% Pump (20.25 mg/1.25 g) topical gel 1 pump(s), Topical, qAM aspirin 81 mg oral tablet, chewable 81 mg = 1 tab(s), Oral, qDayM atorvastatin 10 mg oral tablet 10 mg = 1 tab(s), Oral, qDay cloNIDine 0.1 mg oral tablet 0.1 mg = 1 tab(s), PRN, Oral, TID DME MISCellaneous See Instructions DME MISCellaneous See Instructions DME MISCellaneous See Instructions Entresto 97 mg-103 mg oral tablet 1 tab(s), Oral, BID Jardiance 10 mg oral tablet 10 mg = 1 tab(s), Oral, qAM Misc Medication prasugrel 10 mg oral tablet 10 mg = 1 tab(s), Oral, qDay Protonix 40 mg oral enteric coated tablet 40 mg = 1 tab(s), Oral, Every other day Syringes See Instructions tadalafil 10 mg oral tablet 10 mg = 1 tab(s), Oral, qDay Vitamin D3 1250 mcg (50,000 intl units) oral capsule 1,250 mcg = 1 cap(s), Oral, qWeek Allergies No Known Medication Allergies Social History Alcohol Use: denies., 07/10/2023 Nutrition/Health Type of diet: Regular. Caffeine intake amount: mountain dew 3-4 cans per day. Appetite Good., 02/09/2024 Substance Abuse Use: Current. Type: Methamphetamines., 02/09/2024 Tobacco Nicotine Use: 10 or more cigarettes (1/2 pack or more)/day in last 30 days. Type: Cigarettes., 07/25/2024 Family History Asthma: Mother, Brother and Grandparent. Health Status Family Member(s) Immunizations hepatitis A adult vaccine: 0 unknown unit (04/03/12) hepatitis A adult vaccine: 0 unknown unit (09/27/11) hepatitis B adult vaccine: 0 unknown unit (04/03/12) hepatitis B adult vaccine: 0 unknown unit (10/28/11) hepatitis B adult vaccine: 0 unknown unit (09/27/11) poliovirus vaccine, inactivated: 0 unknown unit (09/27/11) SARS-CoV-2 (COVID-19) mRNA-1273 vaccine: 0.25 unknown unit (10/31/21) SARS-CoV-2 (COVID-19) mRNA-1273 vaccine: 0.5 unknown unit (03/13/21) SARS-CoV-2 (COVID-19) mRNA-1273 vaccine: 0.5 unknown unit (02/13/21) tetanus/diphth/pertuss (Tdap) adult/adol: 0 unknown unit (09/27/11) typhoid vaccine, inactivated: 0 unknown unit (09/27/11) Code Status Code Status - Ordered -- 07/25/24 20:23:00 EDT, Full Code, Constant Order Digitally Signed by AMPARO SARAVIA MD on 07/26/2024 12:07 AM [id number] NoteSINUS RHYTHM PROBABLE LEFT ATRIAL ENLARGEMENT BORDERLINE T ABNORMALITIES, INFERIOR LEADS Electronic Signature: NENA DAVID MD 07/27/2024 00:06:21[facility] 09-15-2024 NoteSinus rhythm Borderline prolonged QT interval SEE DICTATION Electronic Signature: EDILMA RUBY MD 07/25/2024 14:31:31[facility] 09-15-2024 Evaluation + Plan noteExtracted from: Title:CCU History and Physical Author:UMA SARAVIA MD Date:07/25/24 NSTEMI Medication noncompliance for past 1 month Positive amphetamine use Hypertension Shortness of breath DVT prophylaxis CODE STATUS History of PCI to RCA 07/2023, EF 40-45% Nov 2023, hypertension, current methamphetamine use, tobacco abuse, past alcohol abuse, and obesity -Given patient's medication noncompliance for past 1 month, we will slowly resume some home medications from today. Resuming aspirin, atorvastatin, Jardiance, Entresto at medium dose -Holding pasugrel, clonidine. Avoid beta-blockers in this patient -Left heart cath ordered for tomorrow. Patient n.p.o. after midnight. Will start patient on a heparin drip with bolus per NSTEMI criteria -Will give Lasix 40 IV once tonight with plans to continue 40 IV twice daily from tomorrow, creatinine at normal range at this time. proBNP is already improved to 580. - goal to maintain K>4 and Mag>2, replete as necessary -will resume other home medications as appropriate DVT PPx: Heparin by weight Code status: Full code Diet: N.p.o. from midnight Future Appointments Appointment Date:09/08/2024 02:00:00 PM Scheduled Provider: [facility] Appoint[facility] Type:[facility] Follow Up Future Scheduled Tests Laboratory* Testosterone,Free and Total 04/19/24 * Complete Blood Count 04/19/24 * Complete Metabolic Panel 04/19/24 Radiology* MRI Brain w/ Contrast 04/19/24 [facility] 09-15-2024 Note ORIGINAL EXAMINATION: ONE XRAY VIEW OF THE CHEST 07/25/2024 12:51 pm COMPARISON: 06/01/2024 HISTORY: ORDERING SYSTEM PROVIDED HISTORY: Reason for Exam: chest pain FINDINGS: There is poor inspiratory effort. Loss of spatial and contrast resolution is noted secondary to body habitus and portable technique. Heart is top-normal in size. There is no pulmonary edema, lobar consolidation or pneumothorax. The skeletal elements appear grossly intact. IMPRESSION: 1. Poor inspiratory effort. 2. No acute airspace disease. Interpreted by: Ayush Fam DO Preliminary Report By: Ayush Fam DO Electronically signed By Ayush Fam DO Dictated Date: 07/25/2024 12:56:17 PM Prelim Date: 07/25/2024 12:57:05 PM Sign Date: 07/25/2024 12:57:05 PM [facility] NoteSinus tachycardia Probable left atrial enlargement Borderline prolonged QT interval SEE DICTATION Electronic Signature: EDILMA RUBY MD 07/25/2024 13:10:[facility] 07-23-2024 Hospital Discharge instructions Patient Education 06/01/2024 17:07:34 Shortness of Breath (Dyspnea) Shortness of Breath (Dyspnea) Shortness of breath is the feeling that you can't catch your breath or get enough air. It is also known as dyspnea. Dyspnea can be caused by many different conditions. They include: Acute asthma attack Worsening of chronic lung diseases such as chronic bronchitis and emphysema Heart failure. This is when weak heart muscle allows extra fluid to collect in the lungs. Panic attacks or anxiety. Fear can cause rapid breathing (hyperventilation). Pneumonia, or an infection in the lung tissue Exposure to toxic substances, fumes, smoke, or certain medicines Blood clot in the lung (pulmonary embolism). This is often from a piece of blood clot in a deep vein of the leg (deep vein thrombosis) that breaks off and travels to the lungs. Heart attack or heart-related chest pain (angina) Anemia Collapsed lung (pneumothorax) Dehydration Based on your visit today, the exact cause of your shortness of breath is not certain. Your tests don t show any of the serious causes of dyspnea. You may need other tests to find out if you have a serious problem. It s important to watch for any new symptoms or symptoms that get worse. Follow up with your healthcare provider as directed. Home care Follow these tips to take care of yourself at home: When your symptoms are better, go back to your usual activities. If you smoke, you should stop. Join a quit-smoking program or ask your healthcare provider for help. Eat a healthy diet and get plenty of sleep. Get regular exercise. Talk with your healthcare provider before starting to exercise, especially ifyou have other medical problems. Cut down on the amount of caffeine and stimulants you consume. Follow-up care Follow up with your healthcare provider, or as advised. If tests were done, you will be told if your treatment needs to be changed. You can call as directed for the results. If an X-ray was taken, a specialist will review it. You will be notified of any new findings that may affect your care. Call 911 Shortness of breath may be a sign of a serious medical problem. For example, it may be a problem with your heart or lungs. Call 911 if you have worsening shortness of breath or trouble breathing, especially with any of the symptoms below: Confusion or difficulty waking Fainting or loss of consciousness. Fast or irregular heartbeat Coughing up blood Pain in your chest, arm, shoulder, neck, or upper back Sweating When to seek medical advice Call your healthcare provider right away if any of these occur: Slight shortness of breath or wheezing Redness, pain or swelling in your leg, arm, or other body area Swelling in both legs or ankles Fast weight gain Dizziness or weakness Fever of 100.4 F (38 C) or higher, or as directed by your healthcare provider [id number] [employer]. [address] [place] [address], [place] [address]. All rights reserved. This information is not intended as a substitute for professional medical care. Always follow yourhealthcare professional's instructions. Follow Up Care 06/01/2024 15:06:17 With:PAVEL PEREZ MD Address: [address] [phone] When:2-4 days With:MICHAEL OTOOLE DO Address: [address] [place] [phone] When:2-4 days [facility] 07-23-2024 Note Discharge Instructions Thank you for allowing [facility] to assist you with your healthcare needs. The following is importantdischarge information regarding your hospital visit. Diagnosis from Today's Visit Dyspnea Noncompliance with treatment What to Do Next Instructions from Your Care Team No qualifying data available. Post Acute Orders No qualifying data available. You Need to Schedule the Following Appointments Follow Up with PAVEL PEREZ MD When:Within 2-4 days Where:[address] [phone] [phone] Follow Up with MICHAEL OTOOLE DO When:Within 2-4 days Where:[address] [place] [id number] [phone] Allergies No Known Medication Allergies Medications Please ask your primary doctor or pharmacist before taking any other medication not listed, including over the counter drugs, herbal medications, vitamins and or supplements as they may interact withyour home medications. What How Much When Why Instructions Last Dose Unchanged amLODIPine (amLODIPine 10 mg oral tablet) 1 tab(s) by mouth Once a day Duration: 30 Days TAKE ONE TABLET BY MOUTH ONCE DAILY Unchanged aspirin (aspirin 81 mg oral tablet, chewable) 1 tab(s) by mouth Once a day with a meal Unchanged atorvastatin (atorvastatin 20 mg oral tablet) 1 tab(s) by mouth Once a day Unchanged cholecalciferol (Vitamin D3 1250 mcg (50,000 intl units) oral capsule) 1 cap by mouth Every week Hypersomnia Vitamin D insufficiency restest Vit D Unchanged DME (DME MISCellaneous) See instructions 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 23 Guage x 1.5 needle. Use to administer intramuscular testosterone injection Unchanged DME (DME MISCellaneous) See instructions 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 18 Guage x 1 needle. Use to withdraw testosterone inj from vial. Unchanged DME (DME MISCellaneous) See instructions 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 2 x 2 Sterile Gauze Pads. Use for testosterone injections, prn Unchanged DME (Syringes) See instructions 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 1 mL syringes Unchanged empagliflozin (Jardiance 10 mg oral tablet) 1 tab(s) by mouth Once a day (in the morning) Unchanged pantoprazole (Protonix 40 mg oral enteric coated tablet) 1 tab(s) by mouth Every other day Duration: 10 Days Take every other day x 10 days then stop. Ok to stop any future Rx from Pharmacy, we are discontinuing Unchanged prasugrel (prasugrel 10 mg oral tablet) 1 tab(s) by mouth Once a day Unchanged sacubitril-valsartan (Entresto 97 mg-103 mg oral tablet) 1 tab(s) by mouth Two (2) times a day Unchanged sildenafil (sildenafil 25 mg oral tablet) See instructions as needed Please take this list to your next doctor s visit. Bring all medications you take, including over the counter medications, herbals and other supplements with you to your doctor s visit. Patients and families are reminded to discard old lists and to update any records with all medication providers or retail pharmacies. Education Materials Shortness of Breath (Dyspnea) Shortness of breath is the feeling that you can't catch your breath or get enough air. It is also known as dyspnea. Dyspnea can be caused by many different conditions. They include: Acute asthma attack Worsening of chronic lung diseases such as chronic bronchitis and emphysema Heart failure. This is when weak heart muscle allows extra fluid to collect in the lungs. Panic attacks or anxiety. Fear can cause rapid breathing (hyperventilation). Pneumonia, or an infection in the lung tissue Exposure to toxic substances, fumes, smoke, or certain medicines Blood clot in the lung (pulmonary embolism). This is often from a piece of blood clot in a deep vein of the leg (deep vein thrombosis) that breaks off and travels to the lungs. Heart attack or heart-related chest pain (angina) Anemia Collapsed lung (pneumothorax) Dehydration Based on your visit today, the exact cause of your shortness of breath is not certain. Your tests don t show any of the serious causes of dyspnea. You may need other tests to find out if you have a serious problem. It s important to watch for any new symptoms or symptoms that get worse. Follow up with your healthcare provider as directed. Home care Follow these tips to take care of yourself at home: When your symptoms are better, go back to your usual activities. If you smoke, you should stop. Join a quit-smoking program or ask your healthcare provider for help. Eat a healthy diet and get plenty of sleep. Get regular exercise. Talk with your healthcare provider before starting to exercise, especially ifyou have other medical problems. Cut down on the amount of caffeine and stimulants you consume. Follow-up care Follow up with your healthcare provider, or as advised. If tests were done, you will be told if your treatment needs to be changed. You can call as directed for the results. If an X-ray was taken, a specialist will review it. You will be notified of any new findings that may affect your care. Call 911 Shortness of breath may be a sign of a serious medical problem. For example, it may be a problem with your heart or lungs. Call 911 if you have worsening shortness of breath or trouble breathing, especially with any of the symptoms below: Confusion or difficulty waking Fainting or loss of consciousness. Fast or irregular heartbeat Coughing up blood Pain in your chest, arm, shoulder, neck, or upper back Sweating When to seek medical advice Call your healthcare provider right away if any of these occur: Slight shortness of breath or wheezing Redness, pain or swelling in your leg, arm, or other body area Swelling in both legs or ankles Fast weight gain Dizziness or weakness Fever of 100.4 F (38 C) or higher, or as directed by your healthcare provider [id number] [employer]. [address] [place] [address], [place] [address]. All rights reserved. This information is not intended as a substitute for professional medical care. Always follow yourhealthcare professional's instructions. Additional Information VACCINATE! IT SAVES LIVES! Members of the community who have not yet received the COVID-19 vaccine and would like to receive it can visit one of [facility] vaccine clinics. There are many vaccine clinic locations within the [facility]. For locations and available times, please visit www.gettheshot.coronavirus.[place].gov/. It is important to note that some COVID mobile vaccine clinics are held outdoors and may be canceled in rainy or stormy conditions. To learn more about pediatric vaccinations (ages 5-11), we invite you to visit the [facility] webpage. https://www.[facility].org/pages/8236-Wuxft-Nwbhyqhxqjc-Aqadgqdwok-Ockfb-Lcf stions.htmlTo learn more about the COVID-19 vaccine, we invite you to visit the CDC website for a list of frequently asked questions. https://www.cdc.gov/coronavirus/2019-ncov/vaccines/faq.html [facility] Patient Portal Access Instructions: Stay connected with your healthcare team and access your personal medical information anytime with the [facility] Patient Portal. If you would like a full copy of your medical records please contact the [facility] Medical Records Department Friday through Friday between 8a.m. and 4:30p.m. Please follow the directions below to access the portal: 1.Access the email account you provided upon registration to the hospital.2.Look for an invitation email from [facility].3.Open the email and access the invitation link: Accept Invitation to [facility]4.Fill in the required hou to create your account. Sign into www.[employer] with your username and password that you created in the above steps to stay up to date. You can then view a summary of results, a summary of your visits, and the ability to download your summaries to your computer or send the information securely to a physician. Remember that your healthcare information is confidential, so carefully consider who you will allow to register on the [facility] Patient Portal for access to your information. You can also access the [facility] Patient Portal on the [employer] denae. Simply click on Health Records under [employer] and then click on the Mary logo. HOW TO SAFELY DISPOSE OF PRESCRIPTION MEDICATIONS Please use one of the following methods to safely dispose of your unused medications. 1.Use a drug disposal kit: the drug disposal pouch allows you to safely discard your old and unuseddrugs. Ask your nurse to give you one when you are discharged.2.Visit a local take-back location: Many local pharmacies and police departments have programs that collect old and unwanted prescriptiondrugs. Call your local pharmacy or go to http://[employer].Solutionary/5O9Zd1x to find one close to you.3.Make use of household items: Use cat litter or old coffee grounds to dispose medications if other options arenot available. Mix your drugs with these household products, seal them in an airtight container andthrow it into the garbage. Call [facility]: [phone] to be sure your drugs can be disposed of in this way. Some medicines may require a different approach.4.Never flush your medications down the toilet. IF YOU HAVE BEEN PRESCRIBED AN OPIOIDS FOR PAIN If you have been prescribed an opioid (such as hydrocodone, oxycodone or morphine), it is critical to understand the possible side effects and risks of opioid pain medications. Even when taken as directed, opioids can have several side effects including: Tolerance, meaning you might need to take more of a medication for the same pain relief. Nausea, vomiting and/or constipation. Sleepiness, dizziness, dry mouth, confusion, depression or itching. Physical dependence, meaning you have withdrawal symptoms when a medication is stopped ? this can develop within a few days. KNOW YOUR RESPONSIBILITIES It is important to know exactly how much and how often to take the opioid pain medications you are prescribed. Never take opioids in higher amounts or more often than prescribed. Do not combine opioids with alcohol or other drugs that cause drowsiness, such as benzodiazepines, also known as benzos,including diazepam and alprazolam, muscle relaxants or sleep aids. Never sell or share prescriptionopioids. This is illegal. Store opioids in a secure place and out of reach of others (including children, family, friends and visitors). The last page(s) of this document has been signed and retained as a CHART COPY Signatures Patient Education Materials Shortness of Breath (Dyspnea) Medication Leaflets My discharge plan and instructions have been reviewed and explained to me and I,PANCHO LOPEZ understand my current condition and have read and understand these discharge instructions. I have received a written copy of the plan/instructions. If I have questions, I am aware that I should contact my doctor. 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 There is no focal consolidation, significant pleural effusion, vascular congestion, or pneumothorax. Monitoring leads overlie the image. Examination is compromised by portable technique and patient body habitus. IMPRESSION: No acute radiographic findings. Interpreted by: Lina Jain MD Preliminary Report By: Lina Jain MD Electronically signed By Lina Jain MD Dictated Date: 06/01/2024 4:01:55 PM Prelim Date: 06/01/2024 4:02:35 PM Sign Date: 06/01/2024 4:02:35 PM [facility] NoteSinus tachycardia IVCD, consider atypical RBBB Inferior infarct, old Electronic Signature: MIKA PIPER MD 06/01/2024 15:25:24[facility] 06-10-2024 Evaluation + Plan note Future Scheduled Tests Laboratory* Testosterone,Free and Total 04/19/24 * Complete Blood Count 04/19/24 * Complete Metabolic Panel 04/19/24 Radiology* MRI Brain w/ Contrast 04/19/24 [facility] 06-03-2024 Evaluation + Plan note Diagnostic Tests Pending * Testosterone,Free and Total 04/12/24 Future Scheduled Tests Laboratory* Basic Metabolic Panel 07/23/23 * Basic Metabolic Panel 07/30/23 * Basic Metabolic Panel 08/06/23 * Basic Metabolic Panel 08/13/23 * Basic Metabolic Panel 08/20/23 * Basic Metabolic Panel 09/03/23 * Basic Metabolic Panel 09/10/23 * Basic Metabolic Panel 09/17/23 * Basic Metabolic Panel 10/01/23 * Basic Metabolic Panel 10/08/23 * Basic Metabolic Panel 10/15/23 * Basic Metabolic Panel 10/22/23 * Basic Metabolic Panel 10/29/23 * Basic Metabolic Panel 11/12/23 * Basic Metabolic Panel 11/19/23 * Basic Metabolic Panel 11/26/23 * Basic Metabolic Panel 12/03/23 * Basic Metabolic Panel 12/10/23 * Basic Metabolic Panel 12/17/23 [facility] 01-23-2024 Note* Exam Date Time Procedure Performing Provider Status 12/02/23 3:24 PM Echocardiogram, Adult ([facility]) Auth (Verified) [facility] 09-13-2023 Evaluation + Plan note Future Scheduled Tests Laboratory* Basic Metabolic Panel 07/23/23 * Basic Metabolic Panel 07/30/23 * Basic Metabolic Panel 08/06/23 * Basic Metabolic Panel 08/13/23 * Basic Metabolic Panel 08/20/23 * Basic Metabolic Panel 09/03/23 * Basic Metabolic Panel 09/10/23 * Basic Metabolic Panel 09/17/23 * Basic Metabolic Panel 10/01/23 * Basic Metabolic Panel 10/08/23 * Basic Metabolic Panel 10/15/23 * Basic Metabolic Panel 10/22/23 * Basic Metabolic Panel 10/29/23 * Basic Metabolic Panel 11/12/23 * Basic Metabolic Panel 11/19/23 * Basic Metabolic Panel 11/26/23 * Basic Metabolic Panel 12/03/23 * Basic Metabolic Panel 12/10/23 * Basic Metabolic Panel 12/17/23 * HIV 1/2 Ab 02/09/24 [facility] 09-08-2023 Hospital Discharge instructions Patient Education 07/18/2023 16:03:50 Carotid Angioplasty With Stent, Care After, Upcl-df-Ldws Carotid Angioplasty With Stent, Care After This sheet gives you information about how to care for yourself after your procedure. Your doctor may also give you more specific instructions. If you have problems or questions, contact your doctor. What can I expect after the procedure? After the procedure, it is common to have: Bruising at the site where the tube (catheter) was inserted. This usually goes away within 1 2 weeks. A small amount of blood or clear fluid coming from your cut from surgery (incision). A small amount of blood collecting under your skin (hematoma) around the tube site. This may form alump that can be sore and tender. This usually lasts for 1 2 weeks. Follow these instructions at home: Medicines Take eypi-ymx-hgqnajl and prescription medicines only as told by your doctor. Your doctor may prescribe a medicine to thin your blood after the procedure. This will help to prevent blood clots. If you were prescribed an antibiotic medicine, take it as told by your doctor. Do not stop taking the antibiotic even if you start to feel better. Ask your doctor if the medicine prescribed to you requires you to avoid driving or using heavy machinery. Incision care Keep your cut from surgery clean and dry. Follow instructions from your doctor about how to take care of your cut from surgery. Make sure you: ?Wash your hands with soap and water before and after you change your bandage (dressing). If you cannot use soap and water, use hand chipper feeder. ?Change your bandage as told by your doctor. ?Do not rub the site. This may cause bleeding. ?Leave stitches (sutures), skin glue, or skin tape (adhesive) strips in place. They may need to stay in place for 2 weeks or longer. If tape strips get loose and curl up, you may trim the loose edges. Do not remove tape strips completely unless your doctor says it is okay. Check the area around your cut every day for signs of infection. Check for: ?More redness, swelling, or pain. ?More fluid or blood. ?Warmth. ?Pus or a bad smell. Activity Return to your normal activities as told by your doctor. Ask your doctor what activities are safe for you. Do not lift anything that is heavier than 10 lb (4.5 kg), or the limit that you are told, until your doctor says that it is safe. Avoid sex until your doctor says that this is safe for you. Eating and drinking Follow instructions from your doctor about what you cannot eat or drink. Drink enough fluid to keep your pee (urine) pale yellow. Eat a heart-healthy diet. This includes foods like fresh fruits and vegetables, whole grains, low-fat dairy products, and low-fat (lean) meats. Avoid foods that are: ?High in salt, saturated fat, or sugar. ?Canned or highly processed. ?Fried. Lifestyle If you drink alcohol: ?Limit how much you use to: ?0 1 drink a day for women. ?0 2 drinks a day for men. ?Be aware of how much alcohol is in your drink. In the [place] one drink equals one 12 oz bottle of beer (355 mL), one 5 oz glass of wine (148 mL), or one 1 oz glass of hard liquor (44 mL). Do not use any products that contain nicotine or tobacco, such as cigarettes, e- cigarettes, and chewing tobacco. If you need help quitting, ask your doctor. Work with your doctor to keep your blood pressure under control. Stay at a healthy weight. General instructions Do not take baths, swim, or use a hot tub until your doctor approves. Avoid straining to poop to keep the cut from bleeding. Tell all doctors who provide care for you that you have a stent. Keep all follow-up visits as told by your doctor. This is important. Contact a doctor if: You have more redness, swelling, or pain around your cut. You have more fluid or blood coming from your cut. The area around your cut feels warm to the touch. You have pus or a bad smell coming from your cut. You have a lump caused by bleeding under your skin, and the lump does not go away after 2 weeks. You have a fever. Get help right away if: You have a hard time breathing. You have pain in your chest. You have any signs of a stroke. You may be at risk for a stroke even after this procedure. You may be at greater risk of a stroke if you have diabetes, lung disease, kidney disease, had a previous stroke, or are 80 years of age or older. BE FAST is an easy way to remember the main warning signs: ?B - Balance. Signs are dizziness, sudden trouble walking, or loss of balance. ?E - Eyes. Signs are trouble seeing or a change in how you see. ?F - Face. Signs are sudden weakness or loss of feeling of the face, or the face or eyelid droopingon one side. ?A - Arms. Signs are weakness or loss of feeling in an arm. This happens suddenly and usually on one side of the body. ?S - Speech. Signs are sudden trouble speaking, slurred speech, or trouble understanding what people say. ?T - Time. Time to call emergency services. Write down what time symptoms started. You have other signs of a stroke, such as: ?A sudden, very bad headache with no known cause. ?Feeling sick to your stomach (nausea). ?Vomiting. ?Jerky movements you cannot control (seizure). You notice a lump caused by bleeding under your skin and the lump is quickly getting larger. You suddenly get pain in the area where your stent was placed. Your cut from surgery starts to bleed and does not stop after you hold pressure on it for a few minutes. These symptoms may be an emergency. Do not wait to see if the symptoms will go away. Get medical help right away. Call your local emergency services (911 in the [place] Do not drive yourself to the hospital. Summary After the procedure, it is common to have bruising or a small amount of blood or fluid in the area where the surgery cut was made. Take klfy-gko-zdroghf and prescription medicines only as told by your doctor. Return to your normal activities as told by your doctor. Ask your doctor what activities are safe for you. Make sure you know which symptoms to watch for and when to get medical help right away. This information is not intended to replace advice given to you by your health care provider. Make sure you discuss any questions you have with your health care provider. Document Released: 11/01/2014 Document Revised: 12/06/2019 Document Reviewed: 09/09/2019 [employer] Patient Education 2020 [employer] Follow Up Care 07/15/2023 16:56:10 With:BENNIE LOERA MD Address: [address] [place] [address] [facility] [address]- When:Within 2 Week(s) With:NENA DAVID MD Address: [address] [facility] [address] [place] [address]- [phone] When:Within 1 Week(s) With:JOSÉ LUIS MCCORMICK MD Address: [address] [facility] [address] [place] [address]- When:1-2 days Comments:CHOICE #1 With:SANDY GOMEZ MD Address: [address] [place] [address]- When:1-2 days Comments:CHOICE #2 With:TIFFANY AGUILERA MD Address: [address] [facility]. [address] [place] [address]- When:1-2 days Comments:CHOICE #3 [facility] 09-08-2023 Note Discharge Instructions Thank you for allowing [facility] to assist you with your healthcare needs. The following is importantdischarge information regarding your hospital visit. Your Care Team PHYSICIAN, NONE What to do next Scheduled Follow-Up Appointments Appointment Type When Where Contact InformationCV OV 08/06/2023 02:15 PM EDT [facility] Follow Up Appointments Follow Up with BENNIE LOERA MD When In 2 weeks Where: [address] [facility] [place] [address]- Follow Up with NENA DAVID MD When In 1 week Where: [address] [facility] [address] [place] [address]- [phone] Follow Up with JOSÉ LUIS MCCORMICK MD When Within 1-2 days Why: CHOICE #1 Where: [address] [facility] [address] [place] [address]- Follow Up with SANDY GOMEZ MD When Within 1-2 days Why: CHOICE #2 Where: [address] [place] [address]- Follow Up with TIFFANY AGUILERA MD When Within 1-2 days Why: CHOICE #3 Where: [address] [facility]. [address] [place] [id number]- The Following Activity and Diet Have Been Ordered for You Discharge Activity - Ordered -- Activity As Tolerated, 07/18/23 15:58:00 EDT Discharge Diet - Ordered -- Type of Diet: Cardiac, 07/18/23 15:58:00 EDT The Following Equipment Has Been Ordered for You No qualifying data available. The Following Treatments Have Been Ordered for You Discharge Labs Discharge Outpatient Labwork - Ordered -- BMP, On ARB, follow-up within: 1 week, Results Notify to: NENA DAVID MD, 07/18/23 15:58:00 EDT Discharge Radiology No qualifying data available. Other Therapies No qualifying data available. Post Acute Orders No qualifying data available. Someone Will Contact You Regarding These Home Health Referrals No home referrals have been ordered for you. No one will call you. Allergies No Known Medication Allergies Medications Please ask your primary doctor or pharmacist before taking any other medication not listed, including over the counter drugs, herbal medications, vitamins and or supplements as they may interact withyour home medications. What How Much When Instructions Last Dose New aspirin (aspirin 81 mg oral tablet, chewable) 1 tab(s) by mouth Once a day with a meal New atorvastatin (atorvastatin 40 mg oral tablet) 1 tab(s) by mouth Once a day New losartan (losartan 25 mg oral tablet) 1 tab(s) by mouth Two (2) times a day Duration: 30 Days Pickup at [facility] 1811 New pantoprazole (Protonix 40 mg oral enteric coated tablet) 1 tab(s) by mouth Once a day before a meal Duration: 30 Days Pickup at [facility] Changed carvedilol (Coreg 12.5 mg oral tablet) 1 tab(s) by mouth Twice daily with meals Duration: 30 Days Pickup at [facility] 181 Unchanged prasugrel (prasugrel 10 mg oral tablet) 1 tab(s) by mouth Once a day Pharmacy Information [facility]: [address] [place], [place] [phone] What How Much When Comments Stop Taking furosemide (Lasix 40 mg oral tablet) 1 tab(s) by mouth Once a day Stop Taking sacubitril-valsartan (Entresto 24 mg-26 mg oral tablet) 1 tab(s) by mouth Two (2) times a day Please take this list to your next doctor s visit. Bring all medications you take, including over the counter medications, herbals and other supplements with you to your doctor s visit. Patients and families are reminded to discard old lists and to update any records with all medication providers or retail pharmacies. Education Materials Carotid Angioplasty With Stent, Care After This sheet gives you information about how to care for yourself after your procedure. Your doctor may also give you more specific instructions. If you have problems or questions, contact your doctor. What can I expect after the procedure? After the procedure, it is common to have: Bruising at the site where the tube (catheter) was inserted. This usually goes away within 1 2 weeks. A small amount of blood or clear fluid coming from your cut from surgery (incision). A small amount of blood collecting under your skin (hematoma) around the tube site. This may form alump that can be sore and tender. This usually lasts for 1 2 weeks. Follow these instructions at home: Medicines Take ydbq-gkk-zyifmxy and prescription medicines only as told by your doctor. Your doctor may prescribe a medicine to thin your blood after the procedure. This will help to prevent blood clots. If you were prescribed an antibiotic medicine, take it as told by your doctor. Do not stop taking the antibiotic even if you start to feel better. Ask your doctor if the medicine prescribed to you requires you to avoid driving or using heavy machinery. Incision care Keep your cut from surgery clean and dry. Follow instructions from your doctor about how to take care of your cut from surgery. Make sure you: ? Wash your hands with soap and water before and after you change your bandage (dressing). If you cannot use soap and water, use hand chipper feeder. ? Change your bandage as told by your doctor. ? Do not rub the site. This may cause bleeding. ? Leave stitches (sutures), skin glue, or skin tape (adhesive) strips in place. They may need to stayin place for 2 weeks or longer. If tape strips get loose and curl up, you may trim the loose edges.Do not remove tape strips completely unless your doctor says it is okay. Check the area around your cut every day for signs of infection. Check for: ? More redness, swelling, or pain. ? More fluid or blood. ? Warmth. ? Pus or a bad smell. Activity Return to your normal activities as told by your doctor. Ask your doctor what activities are safe for you. Do not lift anything that is heavier than 10 lb (4.5 kg), or the limit that you are told, until your doctor says that it is safe. Avoid sex until your doctor says that this is safe for you. Eating and drinking Follow instructions from your doctor about what you cannot eat or drink. Drink enough fluid to keep your pee (urine) pale yellow. Eat a heart-healthy diet. This includes foods like fresh fruits and vegetables, whole grains, low-fat dairy products, and low-fat (lean) meats. Avoid foods that are: ? High in salt, saturated fat, or sugar. ? Canned or highly processed. ? Fried. Lifestyle If you drink alcohol: ? Limit how much you use to: ? 0 1 drink a day for women. ? 0 2 drinks a day for men. ? Be aware of how much alcohol is in your drink. In the [place] one drink equals one 12 oz bottle of beer (355 mL), one 5 oz glass of wine (148 mL), or one 1 oz glass of hard liquor (44 mL). Do not use any products that contain nicotine or tobacco, such as cigarettes, e- cigarettes, and chewing tobacco. If you need help quitting, ask your doctor. Work with your doctor to keep your blood pressure under control. Stay at a healthy weight. General instructions Do not take baths, swim, or use a hot tub until your doctor approves. Avoid straining to poop to keep the cut from bleeding. Tell all doctors who provide care for you that you have a stent. Keep all follow-up visits as told by your doctor. This is important. Contact a doctor if: You have more redness, swelling, or pain around your cut. You have more fluid or blood coming from your cut. The area around your cut feels warm to the touch. You have pus or a bad smell coming from your cut. You have a lump caused by bleeding under your skin, and the lump does not go away after 2 weeks. You have a fever. Get help right away if: You have a hard time breathing. You have pain in your chest. You have any signs of a stroke. You may be at risk for a stroke even after this procedure. You may be at greater risk of a stroke if you have diabetes, lung disease, kidney disease, had a previous stroke, or are 80 years of age or older. BE FAST is an easy way to remember the main warning signs: ? B - Balance. Signs are dizziness, sudden trouble walking, or loss of balance. ? E - Eyes. Signs are trouble seeing or a change in how you see. ? F - Face. Signs are sudden weakness or loss of feeling of the face, or the face or eyelid drooping on one side. ? A - Arms. Signs are weakness or loss of feeling in an arm. This happens suddenly and usually on oneside of the body. ? S - Speech. Signs are sudden trouble speaking, slurred speech, or trouble understanding what peoplesay. ? T - Time. Time to call emergency services. Write down what time symptoms started. You have other signs of a stroke, such as: ? A sudden, very bad headache with no known cause. ? Feeling sick to your stomach (nausea). ? Vomiting. ? Jerky movements you cannot control (seizure). You notice a lump caused by bleeding under your skin and the lump is quickly getting larger. You suddenly get pain in the area where your stent was placed. Your cut from surgery starts to bleed and does not stop after you hold pressure on it for a few minutes. These symptoms may be an emergency. Do not wait to see if the symptoms will go away. Get medical help right away. Call your local emergency services (911 in the [place] Do not drive yourself to the hospital. Summary After the procedure, it is common to have bruising or a small amount of blood or fluid in the area where the surgery cut was made. Take mgvb-opp-kepufxv and prescription medicines only as told by your doctor. Return to your normal activities as told by your doctor. Ask your doctor what activities are safe for you. Make sure you know which symptoms to watch for and when to get medical help right away. This information is not intended to replace advice given to you by your health care provider. Make sure you discuss any questions you have with your health care provider. Document Released: 11/01/2014 Document Revised: 12/06/2019 Document Reviewed: 09/09/2019 [employer] Patient Education 2020 [employer] Additional Information VACCINATE! IT SAVES LIVES! Members of the community who have not yet received the COVID-19 vaccine and would like to receive it can visit one of [facility] vaccine clinics. There are many vaccine clinic locations within the [facility]. For locations and available times, please visit [email or web address].coronavirus.[place].gov/. It is important to note that some COVID mobile vaccine clinics are held outdoors and may be canceled in rainy or stormy conditions. To learn more about pediatric vaccinations (ages 5-11), we invite you to visit the [facility] webpage. [email or web address] learn more about the COVID-19 vaccine, we invite you to visit the CDC website for a list of frequently asked questions.https://www.cdc.gov/coronavirus/2019-ncov/vaccines/faq.html [facility] Patient Portal Access Instructions: Stay connected with your healthcare team and access your personal medical information anytime with the [facility] Patient Portal. Please follow the directions below to create your [facility] account: 1.Access the email account you provided upon registration to the hospital/physician office.2.Look for an invitation email from [facility].3.Open the email and access the invitation link: AcceptInvitation to MaryREMOTV.4.Fill in the required hou to create your account. To access your account, visit [employer] AssistOneChart. Click the blue button labeled Access Patient Portal and then log in with the username and password that you created in the steps above. You will be able to view your test results, lab results, a summary of your visits, upcoming appointments and more. There is also a convenient messaging option where you can send secure messages to your p rovider. In addition, you will have the ability to download any documents or summaries to your computer and/or send the information securely to a physician. Remember that your healthcare information is confidential, so carefully consider who you will allowto register on the [facility] Patient Portal for access to your information. You can also access the [facility] Patient Portal on the [employer] denae. Simply click on Patient Portal and then log into your account. If you would like to receive a full copy of your medical records, please contact the [facility] Medical Records Department by calling [phone], Friday through Friday between 8 a.m. and 4:30 p.m. HOW TO SAFELY DISPOSE OF PRESCRIPTION MEDICATIONS Please use one of the following methods to safely dispose of your unused medications. 1.Use a drug disposal kit: the drug disposal pouch allows you to safely discard your old and unuseddrugs. Ask your nurse to give you one when you are discharged.2.Visit a local take-back location: Many local pharmacies and police departments have programs that collect old and unwanted prescriptiondrugs. Call your local pharmacy or go to http://[employer].Solutionary/3A7Jj0n to find one close to you.3.Make use of household items: Use cat litter or old coffee grounds to dispose medications if other options arenot available. Mix your drugs with these household products, seal them in an airtight container andthrow it into the garbage. Call [facility]: [phone] to be sure your drugs can be disposed of in this way. Some medicines may require a different approach.4.Never flush your medications down the toilet. IF YOU HAVE BEEN PRESCRIBED AN OPIOID FOR PAIN If you have been prescribed an opioid (such as hydrocodone, oxycodone or morphine), it is critical to understand the possible side effects and risks of opioid pain medications. Even when taken as directed, opioids can have several side effects including: Tolerance, meaning you might need to take more of a medication for the same pain relief. Nausea, vomiting and/or constipation. Sleepiness, dizziness, dry mouth, confusion, depression or itching. Physical dependence, meaning you have withdrawal symptoms when a medication is stopped, can develop within a few days. KNOW YOUR RESPONSIBILITIES It is important to know exactly how much and how often to take the opioid pain medications you are prescribed. Never take opioids in higher amounts or more often than prescribed. Do not combine opioids with alcohol or other drugs that cause drowsiness, such as benzodiazepines, also known as benzos, including diazepam and alprazolam, muscle relaxants or sleep aids. Never sell or share prescription opioids. This is illegal. Store opioids in a secure place and out of reach of others (including children, family, friends and visitors). The last page of this document has been signed and retained as a CHART COPY. Signatures Patient Education Materials Carotid Angioplasty With Stent, Care After, Cczv-hs-Xqxa Medication Leaflets My discharge plan and instructions have been reviewed and explained to me and I,PANCHO LOPEZ understand my current condition and have read and understand these discharge instructions. I have received a written copy of the plan/instructions. If I have questions, I am aware that I should contact my doctor. 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 No special event was reported overnight. Patient remained asymptomatic. No more chest pain since admission to the hospital. He also denied palpitation,dyspnea, orthopnea and PND. Objective Vitals and Measurements T: 37 C (Oral) TMIN: 36.4 C (Oral) TMAX: 37.0 C (Oral) HR: 82(Monitored) RR: 20 BP: 143/95 SpO2: 96% WT: 145.5 kg Intake and Output 7AM Yesterday to 7AM Today Intake and Output (Last 24 hours) Intake Oral Intake 300.00 Output Stool Count 0.00 Urine Count 2.00 Total Summary Total Intake 300.00 Total Output 0.00 Fluid Balance 300.00 Physical Exam General Appearance: Patient comfortably lying on bed, not in acute distress Head: Normocephalic, atraumatic EENT: PERRLA, Neck: Supple, no JVD, no mass Cardiac: s1s2,RRR, no murmurs or rubs or gallops Lungs: Clear to auscultation bilaterally, no wheeze or rhonchi or crackles Abdomen: Soft , Nontender, no organomegaly, bowel sounds heard Musculoskeletal: Full ROM , no gross deformities Extremities: No rash or ulcers or pedal edema Neurological: Alert, oriented x 3, grossly no focal neurological deficits Skin: No rash or ulcers Weight Current Weight Dosing Weight: 146.9 kg (07/16/23) Current Weight: 145.5 kg (07/18/23) Medications Medications (13) Active Scheduled: (8) aspirin 81 mg Chewable 81 mg 1 tab(s), Oral, qDayM atorvastatin 40 mg tablet 40 mg 1 tab(s), Oral, qDay carvedilol 25 mg tablet 25 mg 1 tab(s), Oral, BIDM losartan 50 mg tablet 50 mg 1 tab(s), Oral, BID Nicoderm patch REMOVAL 1 EA, Miscellaneous, q24h nicotine 21 mg/24 hr ER patch 21 mg 1 patch(es), Transdermal, q24h pantoprazole 40 mg EC tablet 40 mg 1 tab(s), Oral, qDayAC prasugrel 10 mg tablet 10 mg 1 tab(s), Oral, qDay Continuous: (0) PRN: (5) acetaminophen 325 mg Tablet 650 mg 2 tab(s), Oral, q4h melatonin 3 mg tablet 3 mg 1 tab(s), Oral, qHS melatonin 3 mg tablet 3 mg 1 tab(s), Oral, qHS ondansetron 2 mg/ 1 mL 2 mL INJ 4 mg 2 mL, IV Push, q4h polyethylene glycol 3350 - UD packet 17 gram(s) 15 mL, Oral, qDay Lab Results 07/18 04:25 WBC: 9.8 Hgb: 16.3 Hct: 47.8 Platelet: 254 Neutrophil %: 60.0 Glucose Level: 111 H Sodium Level: 140 Potassium Level: 4.6 BUN: 18.0 Creatinine Lvl (s): 1.07 EKG No qualifying data available. Assessment/Plan Orders: carvedilol, Start: 07/18/23 17:00:00 EDT, Dose = 25 mg, = 1 tab(s), Oral, BIDM, 07/18/23 12:49:00 EDT losartan, Start: 07/18/23 21:00:00 EDT, Dose = 50 mg, = 1 tab(s), Oral, BID, 0, 07/18/23 12:48:00 EDT Less likely cardiac pain NSVT Type II NH Trivial pericardial effusion Coronary artery disease status post recent RCA stent Heart failure with reduced ejection fraction Ischemic cardiomyopathy Moderate mitral regurgitation For Coronary artery disease s/p recent RCA stent, Continue dual antiplatelet with aspirin, prasugrel, and GDMT for coronary artery disease with beta-andre and atorvastatin. For history of heart failure with reduced ejection fraction, patient could not get Entresto due to insurance issues. Echocardiogram today showed further reduction of EF 20 to 25%. Blood pressure is 143//95, heart rate 82/min today. We will increase to losartan 50 mg twice daily,carvedilol 25 mg twice daily. Patient is to follow-up with heart failure clinic in 1 week and recheck BMP. Patient has NSVT on telemetry. Last episode was yesterday in the afternoon lasting less than 1 seconds. Currently in the process of getting wearable defibrillator, LifeVest for prevention of arrhythmia. Patient can be discharged once he gets LifeVest. Thank you for the consult and will sign off. Digitally Signed by YENNI NOVAK MD on 07/18/2023 01:45 PM Digitally Signed by NENA DAVID MD [id number] Discharge summary Date of Service 07/18/2023 Discharge Diagnosis acute CHF atypical chest pain tobacco abuse nsvt methamphetamine abuse morbid obesity cad s/p RCA stent Hospital Course 37-year-old gentleman with past medically significant for tobacco abuse, morbid obesity, coronary disease status post RCA stent in 07/11/2023 diagnosed with congestive heart failure with ejection fraction 30% presented with back pain, chest pain. Patient had been put on aspirin and prasugrel for RODOLFO stent that was placed in the RCA when patient had presented with unstable angina on 07/11/2023. Patient also noted to have 3 bowel movements in 1 day and also noticed some blood for which he presented to the emergency room at [facility]. Patient was seen by cardiology while in the hospital. Patient was taken off the Entresto switched to losartan and Coreg per cardiology Patient's blood pressures are improving. Patient has been recommended to have a LifeVest prior to his discharge. Patient noted tohave nonsustained ventricular tachycardia on telemetry. And will be discharged once he is provided with a LifeVest. Patient counseled on smoking abuse.2D echocardiogram shows LV systolic function severely reduced 20 to 25% severe pericardial effusion patient's lipid panel showed triglycerides elevated at 292 LDL was 64. Patient's urine drug screen was positive for opioids on 07/16/2023 and positivefor methamphetamine on 07/11/2023. Has been counseled both on tobacco abuse as well as use of meth and amphetamine with when regards to his current cardiac issues. He is medically stable for discharge and will follow-up with cardiology. Allergies No Known Medication Allergies Consults No qualifying data available. Physical Exam Vitals and Measurements T: 37 C (Oral) TMIN: 36.4 C (Oral) TMAX: 37.0 C (Oral) HR: 82(Monitored) RR: 20 BP: 143/95 SpO2: 96% WT: 145.5 kg Weight Current Weight Dosing Weight: 146.9 kg (07/16/23) Current Weight: 145.5 kg (07/18/23) General Appearance: no acute distress, Head: atraumatic, perrrla, EENT:moist mucosa,, normal pharynx, normal tonsils and adenoids and tongue Neck:trachea midline, no carotid bruit, no mass or lymphadenopathy. Cardiac: RRR, no murmurs, normal S1 and S2 Lungs: Normal chest wall expansion, clear to auscultation Abdomen: Soft nontender nondistended, normal bowel sounds all quadrants, no hepatomegaly, guarding Genitourinary: No inguinal hernia, Musculoskeletal:Range of Motion intact in all extremities, strength intact, Extremities: No edema, Neurological:Awake alert oriented x3, cranial nerves II through XII intact, DTR intact, sensory function intact, Skin: Warm dry, pink, no rash, purpura, petechia Psychiatric: Normal affect, intact cognition, Code Status Code Status - Ordered -- 07/16/23 4:16:00 EDT, Full Code, Constant Order Admission Date 07/16/2023 Discharge Date 07/18/2023 Medications New Prescription aspirin (aspirin 81 mg oral tablet, chewable)1 tab(s) by mouth once a day with a meal. atorvastatin (atorvastatin 40 mg oral tablet)1 tab(s) by mouth once a day. losartan (losartan 25 mg oral tablet)1 tab(s) by mouth two (2) times a day for 30 Days. Refills: 0. pantoprazole (Protonix 40 mg oral enteric coated tablet)1 tab(s) by mouth once a day before a meal for 30 Days. Refills: 0. Changed carvedilol (Coreg 12.5 mg oral tablet)1 tab(s) by mouth twice daily with meals for 30 Days. Refills: 0. Unchanged prasugrel (prasugrel 10 mg oral tablet)1 tab(s) by mouth once a day. Refills: 0. Discontinued furosemide (Lasix 40 mg oral tablet)1 tab(s) by mouth once a day. Refills: 0. sacubitril-valsartan (Entresto 24 mg-26 mg oral tablet)1 tab(s) by mouth two (2) times a day. Refills: 0. Follow Up Follow Up with BENNIE LOERA MD When In 2 weeks Where: [address] [facility] [place] [address]- Follow Up with NENA DAVID MD When In 1 week Where: [address] [facility] [address] [facility] [place] [address]- [phone] Follow Up with JOSÉ LUIS MCCORMICK MD When Within 1-2 days Why: CHOICE #1 Where: [address] [place] [address]- Follow Up with SANDY GOMEZ MD When Within 1-2 days Why: CHOICE #2 Where: [address] [place] [address]- Follow Up with TIFFANY AGUILERA MD When Within 1-2 days Why: CHOICE #3 Where: [address] [place] [address]- Follow Up Appointments No qualifying data available. Follow Up Labs/Studies Discharge Labs No Follow-up Labs Discharge Studies No Follow-up Studies Discharge Diet cardiac , lot fat Discharge Activity as tolerated Condition on Discharge stable , improved Discharge Disposition home Time Spent 45 min Digitally Signed by JANI ARTEAGA MD on 07/18/2023 11:48 AM [id number] Note Date of Service 07/17/2023 Chief Complaint Patient is 37-year-old gentleman with past medical history significant for methamphetamine use withrecent diagnosis of coronary artery disease status post RCA stent on 07/11/2023 and newly diagnosed heart failure with reduced EF 30-35% who was transferred from [facility] on 07/16/2023 with chiefcomplaint of mid scapular pain worsening with deep breathing as well as 1 2 episodes of mild bleeding per rectum. Initial EKG did not show any ischemic changes. Troponin mildly elevated with peak of 87.92. proBNP 624. CBC with no leukocytosis. He was hypertensive on presentation and blood pressure did improve. He was otherwise afebrile and hemodynamically stable. Hemoglobin was 16. BMP with no significant electrolyte abnormality. CT chest was negative for PE. CT abdomen/pelvis was negative for dissection. Chest x-ray with no acute abnormality. Patient was admitted under observation and cardiology was consulted for further evaluation. ESR 16, CRP 0.5. After his recent discharge, patient was compliant with aspirin and prasugrel however was not able to start Entresto due to insurance issues.He was euvolemic hence Lasix was discontinued. He was started on losartan by cardiology. Limited echocardiogram was completed consistent with EF 20-25%. Trivial pericardial effusion. Patient's mid scapular pain had resolved. No evidence of bleeding per rectum since his hospitalization and hemoglobin stable. He is having NSVT on telemetry and cardiology recommended LifeVest for prevention of arrhythmia prior to discharge that is being arranged otherwise okay to discharge from cardiology standpoint. Subjective Patient seen and examined today morning at bedside. He was comfortable lying on bed and states that his pain has improved. Prefers not to be bothered by staff. Denies any chest pain, palpitations, lightheadedness or dizziness, orthopnea or PND. He declined labs this morning. Denies any further episode of bleeding. Telemetry reviewed episodes of NSVT. Objective Vitals and Measurements T: 36.8 C (Oral) TMIN: 36.4 C (Oral) TMAX: 37.0 C (Oral) HR: 68(Monitored) RR: 20 BP: 126/98 SpO2: 100% Intake and Output 7AM Yesterday to 7AM Today Intake and Output (Last 24 hours) Intake Oral Intake 240.00 Output Stool Count 0.00 Urine Count 1.00 Total Summary Total Intake 240.00 Total Output 0.00 Fluid Balance 240.00 Physical Exam General: Patient is not in acute distress Neck: Supple, No JVD HEENT: Normocephalic, atraumatic, Cardiac: Regular rate and rhythm, S1 and S2 present, no murmurs, rubs, or gallops appreciated Lungs: Clear to auscultation bilaterally, no wheezes, rhonchi, or rales appreciated Abdomen: Bowel sounds audible, abdomen is soft, nontender, non-distended, patient declined rectal exam Musculoskeletal: Preserved ROM in all 4 extremities Extremities: No clubbing or cyanosis, pitting edema Skin: Warm, well perfused, no bruises Neurological: Alert and orientated x3, No gross focal neurological deficits Weight Dosing Weight: 146.9 kg (07/16/23) Medications Medications (13) Active Scheduled: (8) aspirin 81 mg Chewable 81 mg 1 tab(s), Oral, qDayM atorvastatin 40 mg tablet 40 mg 1 tab(s), Oral, qDay carvedilol 12.5 mg tablet 12.5 mg 1 tab(s), Oral, BIDM losartan 25 mg tablet 25 mg 1 tab(s), Oral, BID Nicoderm patch REMOVAL 1 EA, Miscellaneous, q24h nicotine 21 mg/24 hr ER patch 21 mg 1 patch(es), Transdermal, q24h pantoprazole 40 mg EC tablet 40 mg 1 tab(s), Oral, qDayAC prasugrel 10 mg tablet 10 mg 1 tab(s), Oral, qDay Continuous: (0) PRN: (5) acetaminophen 325 mg Tablet 650 mg 2 tab(s), Oral, q4h melatonin 3 mg tablet 3 mg 1 tab(s), Oral, qHS melatonin 3 mg tablet 3 mg 1 tab(s), Oral, qHS ondansetron 2 mg/ 1 mL 2 mL INJ 4 mg 2 mL, IV Push, q4h polyethylene glycol 3350 - UD packet 17 gram(s) 15 mL, Oral, qDay Lab Results 07/16 18:01 Hgb: 16.0 Hct: 46.6 07/16 10:38 Hgb: 15.5 Hct: 45.5 Imaging Results and Diagnostics XR Chest 1 View Result Date: July 16, 2023 Verified By: AYUSH FRENCH DO CLINICAL STATEMENT: IMPRESSION: 1. No evidence of acute cardiopulmonary process. EKG EKG - Completed -- 07/16/23 7:16:00 EDT, Unless 2 EKGs already done in the past 6 hours EKG - Completed -- 07/16/23 10:16:00 EDT Assessment/Plan Atypical mid scapular pain likely musculoskeletal in nature improved Elevated troponin likely type II NH Bleeding per rectum Trivial pericardial effusion Coronary artery disease status post recent RCA stent Heart failure with reduced ejection fraction Ischemic cardiomyopathy Plan: 1. Patient's ESR/CRP unremarkable and his pain has resolved. Likely musculoskeletal in nature. Chest x-ray did not show any acute process. 2. No evidence of bleeding per rectum. Hemoglobin remained stable at 16. He declined labs this morning. Hemoccult was documented to be positive at [facility]. Could be from hemorrhoid but patient declined rectal exam. Continue PPI on discharge as patient is on DAPT. Outpatient GI referral unless evidence of active bleeding or significant drop in hemoglobin. 3. Repeat echocardiogram showed EF 20-25% with trivial pericardial effusion. No intervention required from cardiology standpoint. 4. Continue aspirin and prasugrel and patient being started on losartan given insurance issues withEntresto and beta-andre dose is being increased. Continue atorvastatin. Prescription was sent to the pharmacy. 5. Given evidence of NSVT on telemetry, cardiology recommending LifeVest prior to discharge that isbeing arranged. Appreciate input from cardiology. Tobacco use Nicotine patches. Counseled on cessation. Plan of care discussed with patient's mother and grandmother at bedside. DVT prophylaxis SCDs, add chemical prophylaxis if patient continues to have no bleeding and hemoglobin stable. Disposition: Anticipate discharge tomorrow once LifeVest is arranged with patient continues to remain hemodynamically stable and no evidence of bleeding. Digitally Signed by CHARLES BROWNE MD on 07/17/2023 08:09 PM [id number] Nurse Progress note I agree with supervisor public health nursing Valerie Carcamo assessment and vital sign charting. Digitally Signed by Rosa Quesada Color Separation Photographer on 07/17/2023 11:31 AM [id number] Progress note Date of Service 07/17/2023 Subjective Patient was seen and examined at bedside today. No special event was reported overnight. Patient remained asymptomatic. He denied chest pain, palpitation, dyspnea, orthopnea and PND. Echocardiogram 07/17/2023 1. Left ventricle: Systolic function is severely reduced. The estimated ejection fraction is 20-25%. 2. Right atrium: The estimated right atrial pressure is 3 mm Hg. 3. Trivial pericardial effusion. Echocardiogram 07/11/2023 1. Left ventricle: The cavity size is mildly increased. Wall thickness is mildly increased. Systolic function is moderately to severely reduced. The estimated ejection fraction is 30-35%. There is moderate diffuse hypokinesis.Diastolic dysfunction present but unable to assess severity. 2. Mitral valve: The annulus is mildly calcified. The leaflets are moderately thickened. Thickening. There is mild to moderate regurgitation. 3. Right ventricle: The cavity size is increased. The RV systolic pressure by Doppler is 11 mm Hg. 4. Pulmonic valve: There is trivial regurgitation. 5. Tricuspid valve: There is mild regurgitation. 6. Right atrium: The atrium is dilated. The estimated right atrial pressure is 3 mm Hg. Left heart catheterization 07/11/2023 Single-vessel coronary artery disease in RCA. RODOLFO stent was placed. Objective Vitals and Measurements T: 36.8 C (Oral) TMIN: 36.6 C (Oral) TMAX: 37.3 C (Oral) HR: 80(Monitored) RR: 18 BP: 136/96 SpO2: 97% Intake and Output 7AM Yesterday to 7AM Today Intake and Output (Last 24 hours) Intake Oral Intake 120.00 Output Stool Count 0.00 Urine Count 2.00 Total Summary Total Intake 120.00 Total Output 0.00 Fluid Balance 120.00 Physical Exam General Appearance: Patient comfortably lying on bed, not in acute distress Head: Normocephalic, atraumatic EENT: PERRLA, Neck: Supple, no JVD, no mass Cardiac: s1s2,RRR, no murmurs or rubs or gallops Lungs: Clear to auscultation bilaterally, no wheeze or rhonchi or crackles Abdomen: Soft , Nontender, no organomegaly, bowel sounds heard Musculoskeletal: Full ROM , no gross deformities Extremities: No rash or ulcers or pedal edema Neurological: Alert, oriented x 3, grossly no focal neurological deficits Skin: No rash or ulcers Weight Dosing Weight: 146.9 kg (07/16/23) Medications Medications (13) Active Scheduled: (8) aspirin 81 mg Chewable 81 mg 1 tab(s), Oral, qDayM atorvastatin 40 mg tablet 40 mg 1 tab(s), Oral, qDay carvedilol 6.25 mg tablet 6.25 mg 1 tab(s), Oral, BIDM losartan 25 mg tablet 25 mg 1 tab(s), Oral, qDay Nicoderm patch REMOVAL 1 EA, Miscellaneous, q24h nicotine 21 mg/24 hr ER patch 21 mg 1 patch(es), Transdermal, q24h pantoprazole 40 mg EC tablet 40 mg 1 tab(s), Oral, qDayAC prasugrel 10 mg tablet 10 mg 1 tab(s), Oral, qDay Continuous: (0) PRN: (5) acetaminophen 325 mg Tablet 650 mg 2 tab(s), Oral, q4h melatonin 3 mg tablet 3 mg 1 tab(s), Oral, qHS melatonin 3 mg tablet 3 mg 1 tab(s), Oral, qHS ondansetron 2 mg/ 1 mL 2 mL INJ 4 mg 2 mL, IV Push, q4h polyethylene glycol 3350 - UD packet 17 gram(s) 15 mL, Oral, qDay Lab Results 07/16 18:01 Hgb: 16.0 Hct: 46.6 07/16 10:38 Hgb: 15.5 Hct: 45.5 07/16 06:37 Glucose Level: 115 H Sodium Level: 143 Potassium Level: 4.4 BUN: 17.0 Creatinine Lvl (s): 1.33 07/16 05:02 WBC: 10.0 Hgb: 15.9 Hct: 46.5 Platelet: 209 Neutrophil %: 57.3 EKG EKG - Completed -- 07/16/23 7:16:00 EDT, Unless 2 EKGs already done in the past 6 hours EKG - Completed -- 07/16/23 10:16:00 EDT Assessment/Plan Less likely cardiac pain NSVT Type II NH Trivial pericardial effusion Coronary artery disease status post recent RCA stent Heart failure with reduced ejection fraction Ischemic cardiomyopathy Moderate mitral regurgitation Remained asymptomatic over the past 24 hours. Inflammatory markers are unremarkable. Chest x-ray was normal. Repeated echo showed only trivial pericardial effusion. No action is needed. Continue dual antiplatelet with aspirin, prasugrel, and GDMT for coronary artery disease with beta-andre and atorvastatin. For history of heart failure with reduced ejection fraction, patient could not get Entresto due to insurance issues. Switched to losartan. No evidence of volume overload. Will add carvedilol 12.5 mg twice daily today Echocardiogram today showed further reduction of EF 20 to 25%. Blood pressure is 136/96. Patient will need up titration of GDMT as an outpatient. Patient has NSVT on telemetry. Discussed the option of getting wearable defibrillator, LifeVest for prevention of arrhythmia. Thank you for the consult and will follow the patient. Digitally Signed by YENNI NOVAK MD on 07/17/2023 03:39 PM Digitally Signed by NENA DAVID MD [id number] Consult note Date of Service 07/16/2023 Reason for Consultation Atypical chest pain Referring Physician Dr. Charles Aviles History of Present Illness 37-year-old male with recent diagnosis of single-vessel coronary artery disease to RCA status post stent in 07/11/2023 (presented with NSTEMI), newly diagnosed heart failure with reduced ejection fraction on same admission, history of methamphetamine use, presented today with left upper back pain with inspiration. Cardiology was consulted for atypical chest pain. Initial EKG showed no significant changes. Troponin was slightly elevated at 83, trended down to 72. proBNP was 624. Echocardiogram 07/11/2023 1. Left ventricle: The cavity size is mildly increased. Wall thickness is mildly increased. Systolic function is moderately to severely reduced. The estimated ejection fraction is 30-35%. There is moderate diffuse hypokinesis.Diastolic dysfunction present but unable to assess severity. 2. Mitral valve: The annulus is mildly calcified. The leaflets are moderately thickened. Thickening. There is mild to moderate regurgitation. 3. Right ventricle: The cavity size is increased. The RV systolic pressure by Doppler is 11 mm Hg. 4. Pulmonic valve: There is trivial regurgitation. 5. Tricuspid valve: There is mild regurgitation. 6. Right atrium: The atrium is dilated. The estimated right atrial pressure is 3 mm Hg. Left heart catheterization 07/11/2023 Single-vessel coronary artery disease in RCA. RODOLFO stent was placed. Review of Systems Constitutional: denies Fevers and chills , no loss of appetite, denies fatigue or weight change Eyes: Denies double vision/blurring of vision/flashes or floaters Ears, Nose, Mouth & Throat: Denies any tinnitus/hearing loss/sinus congestion/nasal discharge/sore throat Cardiovascular: Denies any chest pain/shortness of breath/hemoptysis/palpitations/diaphoresis Respiratory: Denies any shortness of breath/cough/productive sputum/hemoptysis Gastrointestinal: Denies any abdominal pain/nausea/vomiting/diarrhea/hematochezia/hematemesis/melena Genitourinary: Denies any dysuria/hematuria Musculoskeletal: denies joint pain or joint swelling or deformities Skin: No ulcers or rash Neurological: denies Weakness or numbness of extremities/facial droop/loss of balance Endocrine: Denies any heat or cold intolerance/polyuria/polydipsia/polyphagia Hematologic/Lymphatic: denies lymphadenopathy Allergic/Immunologic: Denies any seasonal allergy/sneezing/tearing from the eyes Physical Exam Vitals and Measurements T: 37.1 C (Oral) TMIN: 36.4 C (Oral) TMAX: 37.1 C (Oral) HR: 80(Apical) RR: 16 BP: 121/83 SpO2: 97%HT: 198.1 cm WT: 146.9 kg BMI: 37.43 Weight Dosing Weight: 146.9 kg (07/16/23) General Appearance: Patient comfortably lying on bed, not in acute distress Head: Normocephalic, atraumatic EENT: PERRLA, Neck: Supple, no JVD, no mass Cardiac: s1s2,RRR, no murmurs or rubs or gallops Lungs: Clear to auscultation bilaterally, no wheeze or rhonchi or crackles Abdomen: Soft , Nontender, no organomegaly, bowel sounds heard Musculoskeletal: Full ROM , no gross deformities Extremities: No rash or ulcers or pedal edema Neurological: Alert, oriented x 3, grossly no focal neurological deficits Skin: No rash or ulcers Lab Results 07/16 10:38 Hgb: 15.5 Hct: 45.5 07/16 06:37 Glucose Level: 115 H Sodium Level: 143 Potassium Level: 4.4 BUN: 17.0 Creatinine Lvl (s): 1.33 07/16 05:02 WBC: 10.0 Hgb: 15.9 Hct: 46.5 Platelet: 209 Neutrophil %: 57.3 EKG EC07/16/23: SINUS RHYTHM PROBABLE LEFT ATRIAL ENLARGEMENT LEFT VENTRICULAR HYPERTROPHY INFERIOR INFARCT, OLD Electronic Signature: LOUISA GARCIA MD 07/16/2023 10:26:18 Assessment/Plan Less likely cardiac pain Type II NH Coronary artery disease status post recent RCA stent Heart failure with reduced ejection fraction Moderate mitral regurgitation Currently, patient's chest pain is less likely cardiac origin. Chest x-ray looks normal. Inflammatory markers are also normal. No troponin elevation and EKG has no significant changes. Patient is currently asymptomatic. We will repeat a limited echocardiogram today to rule out pericarditis/pericardial effusion. Monitor the patient for 24 hours. Can likely be discharged tomorrow if patient remains stable and asymptomatic. Continue dual antiplatelet with aspirin, prasugrel, and GDMT for coronary artery disease with beta-andre and atorvastatin. For history of heart failure with reduced ejection fraction, patient could not get Entresto due to insurance issues. We will switch the patient to losartan. No evidence of hypervolemia on admission. We will stop furosemide. On discharge, patient will need repeat BMP in 1 week and follow-up with cardiology in 2 weeks. Thank you for the consult and will follow the patient. Problem List/Past Medical History No history of hypertension, diabetes mellitus, thyroid disorder Procedure/Surgical History No qualifying data available. Medications Inpatient aspirin, 81 mg= 1 tab(s), Oral, qDayM Coreg, 6.25 mg= 1 tab(s), Oral, BIDM Entresto 24 mg-26 mg oral tablet, 1 tab(s), Oral, BID Lasix, 40 mg= 1 tab(s), Oral, qDay melatonin, 3 mg= 1 tab(s), Oral, qHS, PRN melatonin, 3 mg= 1 tab(s), Oral, qHS, PRN Miralax Powder Packet, 17 gram(s)= 15 mL, Oral, qDay, PRN Nicoderm C-Q 21 mg/24 hr transdermal film, extended release, 21 mg= 1 patch(es), Transdermal, q24h nicotine (Nicoderm Patch REMOVAL), 1 EA, Miscellaneous, q24h prasugrel, 10 mg= 1 tab(s), Oral, qDay Protonix, 40 mg= 1 tab(s), Oral, qDayAC Tylenol, 650 mg= 2 tab(s), Oral, q4h, PRN Zofran, 4 mg= 2 mL, IV Push, q4h, PRN Home Coreg 6.25 mg oral tablet, 6.25 mg= 1 tab(s), Oral, BIDM Coreg 6.25 mg oral tablet, 6.25 mg= 1 tab(s), Oral, BIDM Entresto 24 mg-26 mg oral tablet, 1 tab(s), Oral, BID Lasix 40 mg oral tablet, 40 mg= 1 tab(s), Oral, qDay prasugrel 10 mg oral tablet, 10 mg= 1 tab(s), Oral, qDay Allergies No Known Medication Allergies Social History Alcohol Use: denies., 07/10/2023 Nutrition/Health Type of diet: Regular. Appetite Good., 07/10/2023 Substance Abuse Use: Past. Type: Methamphetamines., 07/10/2023 Tobacco Nicotine Use: 5-9 cigarettes (between 1/4 to 1/2 pack)/day in last 30 days. Type: Cigarettes., 07/10/2023 Immunizations No qualifying data available. Digitally Signed by YENNI NOVAK MD on 07/16/2023 03:53 PM Digitally Signed by YENNI NOVAK MD on 07/16/2023 03:54 PM [id number] Note* Exam Date Time Procedure Performing Provider Status 07/16/23 4:15 PM Echocardiogram, Adult - CV Auth (Verified) [facility] 09-06-20[facility] Evaluation + Plan noteExtracted from: Title:History and Physical Author:JORGE WEI Date:07/16/23 37-year-old male recently ad mitted for unstable angina underwent a left heart cath with stenting to his right KENNY found to have new systolic heart failure with a EF of 30, was discharged home on aspirin and prasugrel Coreg, Lasix and Lipitor is presenting with pain in his left upper back he denies chest pain but as per documentation there was chest pain. Differential includes pulmonary emboli which was ruled out with a CT PE, it also includes aortic dissection which was ruled out with a CTA aorta, the differential also includes. Perimyocarditis however there is no rub on exam, the pain is not related to position/it is not improved with leaning forward, and there is no diffuse ST elevation on his EKG which makes it very unlikely. Post stenting ACS is on the differential we will cycle EKGs and cardiac enzymes. Pneumonia is on the differential but he has no crackles on exam nor does he have any infiltrates on chest imaging. His presentation is most consistent with pleurisy. But given his significant cardiac history it is reasonable to observe him overnight on telemetry and cycle EKGs and cardiac enzymes. Regarding his bright red blood per rectum he must be on aspirin and prasugrel to reduce the risk of restenosis of his stent unless there is a life-threatening lower GI bleed he minimizes the amount of bleeding is H&H is also reassuring we will repeat his morning labs. I have a very low suspicion for life-threatening GI bleed. CAD status post stent continue aspirin prasugrel, Lipitor, start Coreg Systolic heart failure with a EF of 30 start Lasix, euvolemic as he is laying flat during the exam Left upper back pain differential work-up assessment and plan as above I suspect this is likely pleurisy. Bright red blood per rectum reassuring H&H and the absence of a life-threatening lower GI bleed would continue his aspirin and prasugrel. Obesity stable but increases risk morbidity mortality Smoker uncontrolled nicotine patch History of methamphetamine use does not appear to be altered this, speaking normal sentences. DVT prophylaxis SCDs Full code Addendum by CHARLES BROWNE MD on July 16, 2023 10:33:56 EDT Patient seen and examined again by me this morning. He was overall frustrated because of frequent blood draws and inability to sleep. He continues to have mid scapular pain that worsens with deep breathing. Denies worsening shortness of breath, chest pain, nausea or vomiting. Denies any lightness/dizziness. Does state that he was compliant with his medications. Had 2 episodes of bright red bleeding per rectum and denies any history of hemorrhoids. No further episode since his hospitalization. He did not allow rectal exam as it was performed at [facility] already. Hemoccult was positive at [facility]. Hemoglobin this morning was 15.9 from 16.5 at [facility]. Blood pressure has normalized. On exam, he is comfortable lying on bed, lungs are clear to auscultation, heart rate is regular. Abdomen is soft, nontender, nondistended. Trace lower extremity edema, skin warm and well-perfused. Troponin at 87.92. No significant rise. Patient does not have typical chest pain however I am concerned given his unreliable history and compliance of the medications and recent stent placement. He is definitely at risk of in-stent thrombosis. Repeat EKG did not show any significant ischemic changes. I will request cardiology input continue aspirin and prasugrel involved given no evidence of active GI bleeding currently.. Repeat troponin and check proBNP. I will also check ESR/CRP as his symptoms could be from pericarditis however no significant EKG changes noticed. Appreciate input from cardiology. Regarding bleeding per rectum, patient declined rectal exam. As per [facility] records, Hemoccult was positive. He did not have any further episode of bleeding per rectum. We will repeat H&H and if hemoglobin significantly drops for further GI bleed, low threshold to involve gastroenterology service as patient will require DAPT. Discussed with patient at bedside. All questions answered Future Appointments Appointment Date:08/06/2023 02:15:00 PM Scheduled Provider: Location:[facility] Appointment Type:[facility] 09-06-2023 Note ORIGINAL EXAMINATION: ONE XRAY VIEW OF THE CHEST 07/16/2023 12:25 pm COMPARISON: 07/10/2023 HISTORY: ORDERING SYSTEM PROVIDED HISTORY: Reason for Exam: chest pain FINDINGS: Similar heart size, mildly enlarged. There is no appreciable pneumothorax, pleural effusion, or vascular congestion. No focal consolidations. No acute skeletal abnormality is evident. IMPRESSION: 1. No evidence of acute cardiopulmonary process. Interpreted by: Ayush French DO Preliminary Report By: Ayush French DO Electronically signed By Ayush French DO Dictated Date: 07/16/2023 12:36:54 PM Prelim Date: 07/16/2023 12:38:00 PM Sign Date: 07/16/2023 12:38:00 PM Ordering Provider: YENNI TAMIKO [facility]09-06-2023 Consult note Date of Service 07/16/2023 Reason for Consultation Atypical chest pain Referring Physician Dr. Charles Aviles History of Present Illness 37-year-old male with recent diagnosis of single-vessel coronary artery disease to RCA status post stent in 07/11/2023 (presented with NSTEMI), newly diagnosed heart failure with reduced ejection fraction on same admission, history of methamphetamine use, presented today with left upper back pain with inspiration. Cardiology was consulted for atypical chest pain. Initial EKG showed no significant changes. Troponin was slightly elevated at 83, trended down to 72. proBNP was 624. Echocardiogram 07/11/2023 1. Left ventricle: The cavity size is mildly increased. Wall thickness is mildly increased. Systolic function is moderately to severely reduced. The estimated ejection fraction is 30-35%. There is moderate diffuse hypokinesis.Diastolic dysfunction present but unable to assess severity. 2. Mitral valve: The annulus is mildly calcified. The leaflets are moderately thickened. Thickening. There is mild to moderate regurgitation. 3. Right ventricle: The cavity size is increased. The RV systolic pressure by Doppler is 11 mm Hg. 4. Pulmonic valve: There is trivial regurgitation. 5. Tricuspid valve: There is mild regurgitation. 6. Right atrium: The atrium is dilated. The estimated right atrial pressure is 3 mm Hg. Left heart catheterization 07/11/2023 Single-vessel coronary artery disease in RCA. RODOLFO stent was placed. Review of Systems Constitutional: denies Fevers and chills , no loss of appetite, denies fatigue or weight change Eyes: Denies double vision/blurring of vision/flashes or floaters Ears, Nose, Mouth & Throat: Denies any tinnitus/hearing loss/sinus congestion/nasal discharge/sore throat Cardiovascular: Denies any chest pain/shortness of breath/hemoptysis/palpitations/diaphoresis Respiratory: Denies any shortness of breath/cough/productive sputum/hemoptysis Gastrointestinal: Denies any abdominal pain/nausea/vomiting/diarrhea/hematochezia/hematemesis/melena Genitourinary: Denies any dysuria/hematuria Musculoskeletal: denies joint pain or joint swelling or deformities Skin: No ulcers or rash Neurological: denies Weakness or numbness of extremities/facial droop/loss of balance Endocrine: Denies any heat or cold intolerance/polyuria/polydipsia/polyphagia Hematologic/Lymphatic: denies lymphadenopathy Allergic/Immunologic: Denies any seasonal allergy/sneezing/tearing from the eyes Physical Exam Vitals and Measurements T: 37.1 C (Oral) TMIN: 36.4 C (Oral) TMAX: 37.1 C (Oral) HR: 80(Apical) RR: 16 BP: 121/83 SpO2: 97%HT: 198.1 cm WT: 146.9 kg BMI: 37.43 Weight Dosing Weight: 146.9 kg (07/16/23) General Appearance: Patient comfortably lying on bed, not in acute distress Head: Normocephalic, atraumatic EENT: PERRLA, Neck: Supple, no JVD, no mass Cardiac: s1s2,RRR, no murmurs or rubs or gallops Lungs: Clear to auscultation bilaterally, no wheeze or rhonchi or crackles Abdomen: Soft , Nontender, no organomegaly, bowel sounds heard Musculoskeletal: Full ROM , no gross deformities Extremities: No rash or ulcers or pedal edema Neurological: Alert, oriented x 3, grossly no focal neurological deficits Skin: No rash or ulcers Lab Results 07/16 10:38 Hgb: 15.5 Hct: 45.5 07/16 06:37 Glucose Level: 115 H Sodium Level: 143 Potassium Level: 4.4 BUN: 17.0 Creatinine Lvl (s): 1.33 07/16 05:02 WBC: 10.0 Hgb: 15.9 Hct: 46.5 Platelet: 209 Neutrophil %: 57.3 EKG EC07/16/23: SINUS RHYTHM PROBABLE LEFT ATRIAL ENLARGEMENT LEFT VENTRICULAR HYPERTROPHY INFERIOR INFARCT, OLD Electronic Signature: LOUISA GARCIA MD 07/16/2023 10:26:18 Assessment/Plan Less likely cardiac pain Type II NH Coronary artery disease status post recent RCA stent Heart failure with reduced ejection fraction Moderate mitral regurgitation Currently, patient's chest pain is less likely cardiac origin. Chest x-ray looks normal. Inflammatory markers are also normal. No troponin elevation and EKG has no significant changes. Patient is currently asymptomatic. We will repeat a limited echocardiogram today to rule out pericarditis/pericardial effusion. Monitor the patient for 24 hours. Can likely be discharged tomorrow if patient remains stable and asymptomatic. Continue dual antiplatelet with aspirin, prasugrel, and GDMT for coronary artery disease with beta-andre and atorvastatin. For history of heart failure with reduced ejection fraction, patient could not get Entresto due to insurance issues. We will switch the patient to losartan. No evidence of hypervolemia on admission. We will stop furosemide. On discharge, patient will need repeat BMP in 1 week and follow-up with cardiology in 2 weeks. Thank you for the consult and will follow the patient. Problem List/Past Medical History No history of hypertension, diabetes mellitus, thyroid disorder Procedure/Surgical History No qualifying data available. Medications Inpatient aspirin, 81 mg= 1 tab(s), Oral, qDayM Coreg, 6.25 mg= 1 tab(s), Oral, BIDM Entresto 24 mg-26 mg oral tablet, 1 tab(s), Oral, BID Lasix, 40 mg= 1 tab(s), Oral, qDay melatonin, 3 mg= 1 tab(s), Oral, qHS, PRN melatonin, 3 mg= 1 tab(s), Oral, qHS, PRN Miralax Powder Packet, 17 gram(s)= 15 mL, Oral, qDay, PRN Nicoderm C-Q 21 mg/24 hr transdermal film, extended release, 21 mg= 1 patch(es), Transdermal, q24h nicotine (Nicoderm Patch REMOVAL), 1 EA, Miscellaneous, q24h prasugrel, 10 mg= 1 tab(s), Oral, qDay Protonix, 40 mg= 1 tab(s), Oral, qDayAC Tylenol, 650 mg= 2 tab(s), Oral, q4h, PRN Zofran, 4 mg= 2 mL, IV Push, q4h, PRN Home Coreg 6.25 mg oral tablet, 6.25 mg= 1 tab(s), Oral, BIDM Coreg 6.25 mg oral tablet, 6.25 mg= 1 tab(s), Oral, BIDM Entresto 24 mg-26 mg oral tablet, 1 tab(s), Oral, BID Lasix 40 mg oral tablet, 40 mg= 1 tab(s), Oral, qDay prasugrel 10 mg oral tablet, 10 mg= 1 tab(s), Oral, qDay Allergies No Known Medication Allergies Social History Alcohol Use: denies., 07/10/2023 Nutrition/Health Type of diet: Regular. Appetite Good., 07/10/2023 Substance Abuse Use: Past. Type: Methamphetamines., 07/10/2023 Tobacco Nicotine Use: 5-9 cigarettes (between 1/4 to 1/2 pack)/day in last 30 days. Type: Cigarettes., 07/10/2023 Immunizations No qualifying data available. Digitally Signed by YENNI NOVAK MD on 07/16/2023 03:53 PM Digitally Signed by YENNI NOVAK MD on 07/16/2023 03:54 PM [id number] History and physical note Date of Service 07/16/2023 Chief Complaint back pain, bright red blood per rectum History of Present Illness 37-year-old male with a history of methamphetamine use presented to [facility] on 07/11/2023 rapidly progressing chest pain admitted for unstable angina underwent a left heart cath stented his RCA, echoshowed new onset systolic heart failure with EF of 30, he was discharged home on aspirin, prasugrel, Coreg, Lasix and Lipitor he was able to take his aspirin and prasugrel but the pharmacy was out ofthe other medications he was doing fine until 2 days ago he started to have pain in his left upper back that came on with inspiration, he had 3 bowel movements in 1 day and did notice some blood in the stool so he became concerned and he went to the emergency department at [place] In the emergency department Blood pressure was high on arrival 183/103, respiratory rate was respiratory 24, pulse 80, 99% on room air improved without intervention to 128/74, pulse 83, afebrile, 100% on room air As per documentation the ED physician wrote that there was also left-sided chest pain CBC WBC of 10, H&H 16/46, platelets 286 BMP glucose 138 sodium 141, potassium 4.2, CO2 low at 20, chloride 109, creatinine 1.3, BUN 17 CT PE was negative for PE CT chest abdomen pelvis was negative for dissection EKG sinus rate of 80, T wave inversion, no ST elevation. Troponin 140 1 repeat trending down to 120 Chest x-ray no acute process. Report taken by: Dr. Rodriguez [facility] physician who I personally spoke to regarding the patient's presentation Upon arrival to floor patient is resting comfortably He says that he does have pain in his left upper back but does not have any chest pain The pain comes on when he takes a deep breath but is not related to position or exertion He does not have any active pain at this time He confirms that he did have some blood in his stools but it was very mild and was only for 1 day he took 3 bowel movements throughout the day and there was blood in his stool. He denies any abdominal pain recent dc summary Date of Service 07/13/23 Discharge Diagnosis Ischemic Cardiomyopathy, CAD, HFrEF Hospital Course 37-year-old gentleman who was admitted to CCU for evaluation and management of new onset heart failure/hypertensive urgency. Patient was started on heparin by weight due to concern for unstable angina/NSTEMI in the ER. CT angiogram of the chest was negative for PE (done initially due to D-dimer being 233) but revealed mildly enlarged mediastinal/hilar lymph nodes. Patient was loaded with aspirin and was sent to [facility] for further management. His TTE revealed reduced LVEF 30-35% and his urine toxicology revealed methamphetamine use. He underwent LHC 07/11/23 which revealed 95% stenosis of RCA which was stented and he was placed on DAPT. His HFrEF was treated with IV lasix 40mg BID, he was started on GDMT which isto be optimized on an outpatient basis. Of note, when stressing the urgency and importance of following up with cardiology outpatient and maintaining pharmacological adherence, patient said I don't see doctors or take meds, call my mom. We relayed this information to the patient's mother, Eleanor Lopez at [phone]. Review of Systems All pertinent positive and negative review of systems as per HPI, all other review of systems reviewed and negative Physical Exam Vitals and Measurements No qualifying data available. GENERAL:Well nourished ; no acute distress. ASSISTIVE DEVICES: None PSYCHIATRIC: appropriate HEENT moist mucous membranes extraocular muscles intact CARDIOVASCULAR: S1-S2 no rub, murmur or gallop RESPIRATORY: Regular rate and depth; no distress, RIGHT lungclear ; LEFT lungclear . Breath soundsnormal . ABDOMEN soft, no guarding, nontender, nondistended, positive bowel sounds, NEURO: No focal deficits DERM: no acute rash Lab Results No 36 Hour Lab Data Assessment/Plan 37-year-old male recently admitted for unstable angina underwent a left heart cath with stenting tohis right KENNY found to have new systolic heart failure with a EF of 30, was discharged home on aspirin and prasugrel Coreg, Lasix and Lipitor is presenting with pain in his left upper back he denies chest pain but as per documentation there was chest pain. Differential includes pulmonary emboli which was ruled out with a CT PE, it also includes aortic dissection which was ruled out with a CTA aorta, the differential also includes. Perimyocarditis however there is no rub on exam, the pain is notrelated to position/it is not improved with leaning forward, and there is no diffuse ST elevation on his EKG which makes it very unlikely. Post stenting ACS is on the differential we will cycle EKGs and cardiac enzymes. Pneumonia is on the differential but he has no crackles on exam nor does he have any infiltrates on chest imaging. His presentation is most consistent with pleurisy. But given his significant cardiac history it is reasonable to observe him overnight on telemetry and cycle EKGs and cardiac enzymes. Regarding his bright red blood per rectum he must be on aspirin and prasugrel toreduce the risk of restenosis of his stent unless there is a life-threatening lower GI bleed he minimizes the amount of bleeding is H&H is also reassuring we will repeat his morning labs. I have a very low suspicion for life-threatening GI bleed. CAD status post stent continue aspirin prasugrel, Lipitor, start Coreg Systolic heart failure with a EF of 30 start Lasix, euvolemic as he is laying flat during the exam Left upper back pain differential work-up assessment and plan as above I suspect this is likely pleurisy. Bright red blood per rectum reassuring H&H and the absence of a life-threatening lower GI bleedwould continue his aspirin and prasugrel. Obesity stable but increases risk morbidity mortality Smoker uncontrolled nicotine patch History of methamphetamine use does not appear to be altered this, speaking normal sentences. DVT prophylaxis SCDs Full code Problem List/Past Medical History Ongoing No qualifying data Historical No qualifying data cad obesity Procedure/Surgical History No qualifying data available. left heart cath Medications Home Medications (5) Active Coreg 6.25 mg oral tablet 6.25 mg = 1 tab(s), Oral, BIDM Coreg 6.25 mg oral tablet 6.25 mg = 1 tab(s), Oral, BIDM Entresto 24 mg-26 mg oral tablet 1 tab(s), Oral, BID Lasix 40 mg oral tablet 40 mg = 1 tab(s), Oral, qDay prasugrel 10 mg oral tablet 10 mg = 1 tab(s), Oral, qDay Allergies No Known Medication Allergies Social History Alcohol Use: denies., 07/10/2023 Nutrition/Health Type of diet: Regular. Appetite Good., 07/10/2023 Substance Abuse Use: Past. Type: Methamphetamines., 07/10/2023 Tobacco Nicotine Use: 5-9 cigarettes (between 1/4 to 1/2 pack)/day in last 30 days. Type: Cigarettes., 07/10/2023 Family History noncontributory to current presentation Immunizations No qualifying data available. Code Status No qualifying data available. Digitally Signed by JORGE WEI MD on 07/16/2023 04:37 AM [id number] NoteSINUS RHYTHM LEFT VENTRICULAR HYPERTROPHY BORDERLINE PROLONGED QT INTERVAL NONSPECIFIC T-WAVE ABNORMALITY Electronic Signature: LOUISA GARCIA MD 07/17/2023 08:43:20[facility] 09-06-2023 NoteSINUS RHYTHM PROBABLE LEFT VENTRICULAR HYPERTROPHY Electronic Signature: LOUISA GARCIA MD 07/17/2023 08:42:38[facility] 09-06-2023 NoteSINUS RHYTHM PROBABLE LEFT ATRIAL ENLARGEMENT LEFT VENTRICULAR HYPERTROPHY INFERIOR INFARCT, OLD Electronic Signature: LOUISA GARCIA MD 07/16/2023 10:26:18[facility] 09-06-2023 History and physical note Date of Service 07/16/2023 Chief Complaint back pain, bright red blood per rectum History of Present Illness 37-year-old male with a history of methamphetamine use presented to [facility] on 07/11/2023 rapidly progressing chest pain admitted for unstable angina underwent a left heart cath stented his RCA, echoshowed new onset systolic heart failure with EF of 30, he was discharged home on aspirin, prasugrel, Coreg, Lasix and Lipitor he was able to take his aspirin and prasugrel but the pharmacy was out ofthe other medications he was doing fine until 2 days ago he started to have pain in his left upper back that came on with inspiration, he had 3 bowel movements in 1 day and did notice some blood in the stool so he became concerned and he went to the emergency department at [place] In the emergency department Blood pressure was high on arrival 183/103, respiratory rate was respiratory 24, pulse 80, 99% on room air improved without intervention to 128/74, pulse 83, afebrile, 100% on room air As per documentation the ED physician wrote that there was also left-sided chest pain CBC WBC of 10, H&H 16/46, platelets 286 BMP glucose 138 sodium 141, potassium 4.2, CO2 low at 20, chloride 109, creatinine 1.3, BUN 17 CT PE was negative for PE CT chest abdomen pelvis was negative for dissection EKG sinus rate of 80, T wave inversion, no ST elevation. Troponin 140 1 repeat trending down to 120 Chest x-ray no acute process. Report taken by: Dr. [facility] physician who I personally spoke to regarding the patient's presentation Upon arrival to floor patient is resting comfortably He says that he does have pain in his left upper back but does not have any chest pain The pain comes on when he takes a deep breath but is not related to position or exertion He does not have any active pain at this time He confirms that he did have some blood in his stools but it was very mild and was only for 1 day he took 3 bowel movements throughout the day and there was blood in his stool. He denies any abdominal pain recent dc summary Date of Service 07/13/23 Discharge Diagnosis Ischemic Cardiomyopathy, CAD, HFrEF Hospital Course 37-year-old gentleman who was admitted to CCU for evaluation and management of new onset heart failure/hypertensive urgency. Patient was started on heparin by weight due to concern for unstable angina/NSTEMI in the ER. CT angiogram of the chest was negative for PE (done initially due to D-dimer being 233) but revealed mildly enlarged mediastinal/hilar lymph nodes. Patient was loaded with aspirin and was sent to [facility] for further management. His TTE revealed reduced LVEF 30-35% and his urine toxicology revealed methamphetamine use. He underwent LHC 07/11/23 which revealed 95% stenosis of RCA which was stented and he was placed on DAPT. His HFrEF was treated with IV lasix 40mg BID, he was started on GDMT which isto be optimized on an outpatient basis. Of note, when stressing the urgency and importance of following up with cardiology outpatient and maintaining pharmacological adherence, patient said I don't see doctors or take meds, call my mom. We relayed this information to the patient's mother, Eleanor Lopez at [phone]. Review of Systems All pertinent positive and negative review of systems as per HPI, all other review of systems reviewed and negative Physical Exam Vitals and Measurements No qualifying data available. GENERAL:Well nourished ; no acute distress. ASSISTIVE DEVICES: None PSYCHIATRIC: appropriate HEENT moist mucous membranes extraocular muscles intact CARDIOVASCULAR: S1-S2 no rub, murmur or gallop RESPIRATORY: Regular rate and depth; no distress, RIGHT lungclear ; LEFT lungclear . Breath soundsnormal . ABDOMEN soft, no guarding, nontender, nondistended, positive bowel sounds, NEURO: No focal deficits DERM: no acute rash Lab Results No 36 Hour Lab Data Assessment/Plan 37-year-old male recently admitted for unstable angina underwent a left heart cath with stenting tohis right KENNY found to have new systolic heart failure with a EF of 30, was discharged home on aspirin and prasugrel Coreg, Lasix and Lipitor is presenting with pain in his left upper back he denies chest pain but as per documentation there was chest pain. Differential includes pulmonary emboli which was ruled out with a CT PE, it also includes aortic dissection which was ruled out with a CTA aorta, the differential also includes. Perimyocarditis however there is no rub on exam, the pain is notrelated to position/it is not improved with leaning forward, and there is no diffuse ST elevation on his EKG which makes it very unlikely. Post stenting ACS is on the differential we will cycle EKGs and cardiac enzymes. Pneumonia is on the differential but he has no crackles on exam nor does he have any infiltrates on chest imaging. His presentation is most consistent with pleurisy. But given his significant cardiac history it is reasonable to observe him overnight on telemetry and cycle EKGs and cardiac enzymes. Regarding his bright red blood per rectum he must be on aspirin and prasugrel toreduce the risk of restenosis of his stent unless there is a life-threatening lower GI bleed he minimizes the amount of bleeding is H&H is also reassuring we will repeat his morning labs. I have a very low suspicion for life-threatening GI bleed. CAD status post stent continue aspirin prasugrel, Lipitor, start Coreg Systolic heart failure with a EF of 30 start Lasix, euvolemic as he is laying flat during the exam Left upper back pain differential work-up assessment and plan as above I suspect this is likely pleurisy. Bright red blood per rectum reassuring H&H and the absence of a life-threatening lower GI bleedwould continue his aspirin and prasugrel. Obesity stable but increases risk morbidity mortality Smoker uncontrolled nicotine patch History of methamphetamine use does not appear to be altered this, speaking normal sentences. DVT prophylaxis SCDs Full code Problem List/Past Medical History Ongoing No qualifying data Historical No qualifying data cad obesity Procedure/Surgical History No qualifying data available. left heart cath Medications Home Medications (5) Active Coreg 6.25 mg oral tablet 6.25 mg = 1 tab(s), Oral, BIDM Coreg 6.25 mg oral tablet 6.25 mg = 1 tab(s), Oral, BIDM Entresto 24 mg-26 mg oral tablet 1 tab(s), Oral, BID Lasix 40 mg oral tablet 40 mg = 1 tab(s), Oral, qDay prasugrel 10 mg oral tablet 10 mg = 1 tab(s), Oral, qDay Allergies No Known Medication Allergies Social History Alcohol Use: denies., 07/10/2023 Nutrition/Health Type of diet: Regular. Appetite Good., 07/10/2023 Substance Abuse Use: Past. Type: Methamphetamines., 07/10/2023 Tobacco Nicotine Use: 5-9 cigarettes (between 1/4 to 1/2 pack)/day in last 30 days. Type: Cigarettes., 07/10/2023 Family History noncontributory to current presentation Immunizations No qualifying data available. Code Status No qualifying data available. Digitally Signed by JORGE WEI MD on 07/16/2023 04:37 AM [id number] Discharge summary Author Vernon [facility] July 15, 2023 10:20pm Note Date/Time July 15, 2023 10:27am [facility] Medical Records Department [address] [place] [address] Emergency Department Summary 07/15/23 MR#: [id number] Acct: [id number] Name: PANCHO LOPEZ Rep #:[id number] : 1985 37 From: Jose Hull PCP: Care Physician,No Primary Status :[facility] ER Location: ED HPI History of Present Illness Chief Complaint: Chest Pain Informant: patient and family Narrative Narrative: Brought in by EMS sudden pain left upper back with worsening pain with deep breaths into his left chest. Patient status post 1 coronary stent this past Friday over at [facility]. He went for exertional dyspnea for 3 weeks. Unclear where the stent was placed. He is on aspirin and prasugrel. He was discharged 2 days ago. Grandmother present. He did take his morning aspirin and prasugrel. Pharmacy did not have his statin or his Entresto medication currently. Additionally reports bright red blood in his stools with 3 episodes this morning. Denies abdominal pain. Remote tobacco quit when he left the hospital. Unclear of any family history of MIs at young age. He is not a diabetic. He was told if he has back pain in his chest to go to the emergency department. Medications reviewed 10 mg prasugrel baby aspirin, Coreg 6.25 twice daily, simvastatin 40 mg. Entresto. PE Risk Factors: Positive for [facility] Home Medications aspirin 81 mg chewable tablet (Matt Chewable Low Dose Aspirin) 1 tab PO DAILY HEART HEALTH 07/15/23 [History Last Taken 07/15/23] atorvastatin 40 mg tablet 40 mg PO QHS CHOLESTEROL 07/15/23 [History Last Taken 07/14/23] carvedilol 6.25 mg tablet 6.25 mg PO BID HEART 07/15/23 [History Last Taken 07/15/23] furosemide 40 mg tablet 40 mg PO DAILY FLUID 07/15/23 [History Last Taken 07/15/23] prasugrel 10 mg tablet 10 mg PO DAILY HEART 07/15/23 [History Last Taken 07/15/23] sacubitril 24 mg-valsartan 26 mg tablet (Entresto) 1 tab PO BID HEART FAILURE 07/15/23 [History Last Taken 07/15/23] Allergy/AdvReac Type Severity Reaction Status Date / Time No Known Allergies Allergy Verified 07/15/23 10:16 Surgical History H/O heart artery stent Social History Smoking Status: Current every day smoker tobacco type: cigarettes ROS ROS ED Constitutional Constitutional ED: Denies chills, fever(s) or sweats Eyes Eyes: Denies change in vision ENT ENT ED: Denies dysphagia or sore throat Cardiovascular Cardiovascular: Reports chest pain; Denies leg edema, palpitations or racing heartbeat Respiratory/Chest Respiratory/Chest: Reports dyspnea; Denies cough or dyspnea on exertion Gastrointestinal Gastrointestinal: Reports nausea; Denies abdominal pain, diarrhea or vomiting Genitourinary Genitourinary ED: Denies dysuria, hematuria or urinary frequency Musculoskeletal Musculoskeletal: Denies back pain, extremity pain or neck pain Integumentary Denies rash or wounds Neurologic Neurologic: Denies headache(s), paresthesias or weakness EXAM Physical Exam Const Vital Signs: 07/15/23 10:12 07/15/23 10:35 07/15/23 12:05 Temperature 97.0 F L Temperature Source Temporal Pulse Rate 83 80 Respiratory Rate 22 H 24 H Blood Pressure 128/74 H 183/103 H Blood Pressure Mean 92 129 Pulse Ox 100 99 Oxygen Delivery Method Room Air Room Air Room Air Positive well nourished and well developed General Appearance ED: well developed and NAD HEENT Reports moist mucous membranes normocephalic and atraumatic Eyes PERRL, EOMs intact bilaterally and conjunctivae normal General Eye ED: Yes normal appearance of both eyes Neck no lymphadenopathy and supple General: Negative for tenderness Chest Wall Chest: Negative for tenderness Resp normal respiratory effort and normal air movement Effort and Inspection: symmetric chest movement; Negative for respiratory distress Cardio regular rate, regular rhythm and no murmurs Peripheral Pulses: pulses 2+ throughout GI normal to inspection, nondistended, normoactive bowel sounds and non-tender Palpation: Negative for guarding or rebound tenderness present Rectal Exam: heme positive stool Back/Spine no CVA tenderness and no thoracic nor lumbar tenderness Extremity normal to inspection General Extremety ED: Negative for edema or tenderness General Extremity: Negative for edema Neuro oriented x3 and no sensory deficits noted Sensorium / Orientation: awake and alert Skin no rashes or lesions noted and no wounds Heart Score History: Moderately Suspicious ECG: Nonspecific Repolarization Age: </= 45 years Risk Factors: >/= 3 Risk Factors or History of CAD Troponin: >1 - <3 Normal Limit Score: 5 MDM MDM MDM Narrative Medical decision making narrative: Interventions / MDM: Differential diagnosis: Diagnosis considered but do not suspect: N/A My EKG interpretation: Sinus rate of 80, no ST changes T wave inversion anteriorlateral. No old for comparison. Imaging independently reviewed and interpreted by myself: Chest x-ray 1 view: Noacute process. CTA chest abdomen pelvis: No PE or dissection. Is also read by radiology. External documents reviewed: Obtaining records from [facility], cath report 95% proximal RCA, 40% distal RCA 40% left circumflex. EF was 30 to 35%. Test considered but not ordered:N/A ED course: EKG T wave inversion no old for comparison. Status post stenting to right RCA. Chest pain with deep breaths. Cardiac work-up initiated along with D-dimer for further evaluation. Also reporting rectal bleeding since this morning. Work-up Labs initial troponin 141. Hemoglobin 16 with stable. Attempted to obtain records through [facility] however unable to obtain there therefore records were requested. Treated morphine Zofran. D-dimer returned negative. When records were obtained noting from July 11 day of his cath his peak troponin at that time was 74 unable to get anything further. This was doubled his value today. Hemoccult did return guaiac positive. I did speak with on-call program and research coordinator Dr. Fernandez feels reasonable to observe him while we cycle troponins and potential GI consult. I did reach out speak with hospitalist Dr. Peña who patient's recent history. He evaluated in the ED along with Dr. Fernandez, who was also in the department. They are concerned with pain with deep breath blood pressure systolic 190s, they recommended CT angiogram to rule out dissection. With his rectal bleeding add additional abdomen pelvis. They also recommended transfer back to [facility] with his recent procedure being performed there. 1440: Patient CT scans returned negative. Reevaluation pain with deep breaths after returning from CT. His troponin rechecked at 2 hours trending down to 120. Additional morphine was given. Hemoccult returned positive. Recommended transfer from hospitalist and cardiology, I did speak with transfer line at [facility] and spoke with hospitalist Dr. Rodriguez, updated patient's historyand findings. He is excepted to their facility. No additional anticoagulants due to rectal bleeding. Re-evaluation: stable Disposition discussed with patient/family/significant other: Case discussed with consulting clinician: Cardiology, Dr. Fernandez, hospitalist , [facility] hospitalist Dr. Rodriguez This note was generated with Interface21 dictation software. It may contain incorrectwords, spelling, and punctuation that were not noted in checking the note beforesigning. Lab Data Labs: Laboratory Results - last 24 hr 07/15/23 07/15/23 10:03 12:55 WBC 10.0 RBC 5.65 Hgb 16.5 Hct 46.4 MCV 82.1 MCH 29.2 MCHC 35.6 RDW Std Deviation 37.5 RDW Coeff of Linus 12.8 Plt Count 286 MPV 11.6 Immature Gran % (Auto) 0.500 Neut % (Auto) 64.7 Lymph % (Auto) 18.6 L [place] % (Auto) 7.6 Eos % (Auto) 7.5 H Baso % (Auto) 1.1 H Absolute Neuts (auto) 6.5 Absolute Lymphs (auto) 1.87 Nucleated RBC % 0 PT 12.7 INR 1.0 APTT 27.7 D-Dimer Quant (PE/DVT) 0.37 Sodium 141 Potassium 4.2 Chloride 109 H Carbon Dioxide 20.0 L Anion Gap 12 BUN 17 Creatinine 1.30 Estim Creat Clear Calc 101.56 Est GFR (MDRD) Af Amer 80 Est GFR (MDRD) Non-Af 66 BUN/Creatinine Ratio 13.1 Glucose 138 H Calcium 9.3 Troponin I High Sens 141 H* 120 H Radiography Diagnostic Testing: Clinical Impression(s) from Imaging Studies Chest X-Ray 07/15/23 11:20 IMPRESSION: No radiographic evidence of acute cardiopulmonary disease. Electronically Signed: Harry England MD at 12:08 EDT , Chest CTA 07/15/23 13:15 IMPRESSION: Normal CTA chest examination, without a demonstrated pulmonary embolism or arterial dissection. Electronically Signed: Alfonso Sahu MD at 14:14 EDT , Abdomen/Pelvis CT 07/15/23 13:19 IMPRESSION: No focal acute inflammatory process. Electronically Signed: Harry England MD at 14:10 EDT , Critical Care Time Critical Care Time: Yes Critical care time (excluding procedures): 30-74 minutes, Discussing w/Patient &/or Family/Manager Transition, Discussing w/Consultants, Arranging Admission or Transfer, Performing Direct Patient Care at Bedside and - (45 minutes) Discharge Plan Triage Chief Complaint: Chest Pain ED Provider: Jose Dunn Dx/Rx/DC Orders Clinical Impression: H/O heart artery stent, CAD (coronary artery disease), Rectal bleed, Chest pain Prescriptions: No Action furosemide 40 mg tablet 40 mg PO DAILY carvedilol 6.25 mg tablet 6.25 mg PO BID prasugrel 10 mg tablet 10 mg PO DAILY aspirin [Matt Chewable Aspirin] 81 mg tablet,chewable 1 tab PO DAILY atorvastatin 40 mg tablet 40 mg PO QHS Entresto 24-26 mg tablet 1 tab PO BID Primary Care Provider: Care Physician,No Primary Referrals: Care Physician,No Primary [Primary Care Provider] - Disposition Disposition: DC/Tx to Another Type of HCF What to do if you have Problems For any increased pain, shortness of breath, bleeding, nausea or vomiting, chestpain, or any unexpected problems, contact your Primary Care Provider. Call [facility] ([phone]) or report to the closest Emergency Room. Call 911 if necessary. 07/15/23 1449 <Electronically signed by Jose Hull> Cosigner Signature (if applicable): CC: No Primary Care Physician ~ Signed ADDENDUM by Dr. Vernon Owens DO on 07/15/23 at 2220 Patient signed out to me pending transfer. He has been stable here. His blood pressure came up to 150/110 so I did give him a dose of labetalol 20 mg IV. He still awaiting transport. Patient will be signed out to incoming ED physician for monitoring until this occurred. 07/15/23 2220<Electronically signed by Vernon Owens DO> Cosigner Signature (if applicable): cc: No Primary Care Physician ~* Signed [facility] Work Phone: [phone] Hospital Discharge instructions Patient Education 07/13/2023 16:49:10 3- Heart Cath/PCI radial (08/2018)(CUSTOM) HEART CATHETERIZATION/PCI (radial) Discharge Instructions DIET Drink plenty of fluids for the next 48 hours to help your kidneys flush the heart cath dye out of your system ACTIVITY For the next 48 hours: Do not deep bend the wrist Do not lift, push, or pull anything over 5 pounds Do not use the hand/arm to support your weight when rising from a chair or bed Do not drive For the next 7 days: Do not submerse your procedure site in water Do not swim, wash dishes, or take tub baths You may write, eat, type, and shower WOUND CARE Keep a Band-Aid on your procedure site for the next 3-4 days Change the Band-Aid daily or if it gets wet/soiled AFTER YOU GO HOME, CALL YOUR DOCTOR FOR: Any increase in bruising or tenderness from the procedure site Any redness, pus, or other signs of infection at the site A temperature above 100.5 Severe pain at the site DIAL 911 AND RETURN TO THE HOSPITAL FOR: Any bleeding from the procedure site. The site may be bruised or tender, but it should not be bleeding at any time. If your site begins to bleed, hold firm pressure on it and dial 911 to return to the hospital Any increase in swelling at the procedure site. An increase in swelling could mean the area is bleeding under the skin. Hold firm pressure to the site and dial 911 to return to the hospital Document Released: 10/27/2006 Document Revised: 10/13/2013 Document Reviewed: 10/28/2014 [facility] Patient Information 2015 [employer]. This information is not intended to replace advicegiven to you by your health care provider. Make sure you discuss any questions you have with your health care provider. 07/13/2023 16:49:01 Hypertension, Adult, Kabw-wa-Tmat Hypertension, Adult Hypertension is another name for high blood pressure. High blood pressure forces your heart to workharder to pump blood. This can cause problems over time. There are two numbers in a blood pressure reading. There is a top number (systolic) over a bottom number (diastolic). It is best to have a blood pressure that is below 120/80. Healthy choices can help lower your blood pressure, or you may need medicine to help lower it. What are the causes? The cause of this condition is not known. Some conditions may be related to high blood pressure. What increases the risk? Smoking. Having type 2 diabetes mellitus, high cholesterol, or both. Not getting enough exercise or physical activity. Being overweight. Having too much fat, sugar, calories, or salt (sodium) in your diet. Drinking too much alcohol. Having long-term (chronic) kidney disease. Having a family history of high blood pressure. Age. Risk increases with age. Race. You may be at higher risk if you are . Gender. Men are at higher risk than women before age 45. After age 65, women are at higher risk than men. Having obstructive sleep apnea. Stress. What are the signs or symptoms? High blood pressure may not cause symptoms. Very high blood pressure (hypertensive crisis) may cause: ?Headache. ?Feelings of worry or nervousness (anxiety). ?Shortness of breath. ?Nosebleed. ?A feeling of being sick to your stomach (nausea). ?Throwing up (vomiting). ?Changes in how you see. ?Very bad chest pain. ?Seizures. How is this treated? This condition is treated by making healthy lifestyle changes, such as: ?Eating healthy foods. ?Exercising more. ?Drinking less alcohol. Your health care provider may prescribe medicine if lifestyle changes are not enough to get your blood pressure under control, and if: ?Your top number is above 130. ?Your bottom number is above 80. Your personal target blood pressure may vary. Follow these instructions at home: Eating and drinking If told, follow the DASH eating plan. To follow this plan: ?Fill one half of your plate at each meal with fruits and vegetables. ?Fill one fourth of your plate at each meal with whole grains. Whole grains include whole-wheat pasta, brown rice, and whole-grain bread. ?Eat or drink low-fat dairy products, such as skim milk or low-fat yogurt. ?Fill one fourth of your plate at each meal with low-fat (lean) proteins. Low- fat proteins include fish, chicken without skin, eggs, beans, and tofu. ?Avoid fatty meat, cured and processed meat, or chicken with skin. ?Avoid pre-made or processed food. Eat less than 1,500 mg of salt each day. Do not drink alcohol if: ?Your doctor tells you not to drink. ?You are , may be , or are planning to become . If you drink alcohol: ?Limit how much you use to: ?0 1 drink a day for women. ?0 2 drinks a day for men. ?Be aware of how much alcohol is in your drink. In the [place] one drink equals one 12 oz bottle of beer (355 mL), one 5 oz glass of wine (148 mL), or one 1 oz glass of hard liquor (44 mL). Lifestyle Work with your doctor to stay at a healthy weight or to lose weight. Ask your doctor what the best weight is for you. Get at least 30 minutes of exercise most days of the week. This may include walking, swimming, or biking. Get at least 30 minutes of exercise that strengthens your muscles (resistance exercise) at least 3 days a week. This may include lifting weights or doing Pilates. Do not use any products that contain nicotine or tobacco, such as cigarettes, e- cigarettes, and chewing tobacco. If you need help quitting, ask your doctor. Check your blood pressure at home as told by your doctor. Keep all follow-up visits as told by your doctor. This is important. Medicines Take pfgz-ppn-akhmoqr and prescription medicines only as told by your doctor. Follow directions carefully. Do not skip doses of blood pressure medicine. The medicine does not work as well if you skip doses.Skipping doses also puts you at risk for problems. Ask your doctor about side effects or reactions to medicines that you should watch for. Contact a doctor if you: Think you are having a reaction to the medicine you are taking. Have headaches that keep coming back (recurring). Feel dizzy. Have swelling in your ankles. Have trouble with your vision. Get help right away if you: Get a very bad headache. Start to feel mixed up (confused). Feel weak or numb. Feel faint. Have very bad pain in your: ?Chest. ?Belly (abdomen). Throw up more than once. Have trouble breathing. Summary Hypertension is another name for high blood pressure. High blood pressure forces your heart to work harder to pump blood. For most people, a normal blood pressure is less than 120/80. Making healthy choices can help lower blood pressure. If your blood pressure does not get lower with healthy choices, you may need to take medicine. This information is not intended to replace advice given to you by your health care provider. Make sure you discuss any questions you have with your health care provider. Document Released: 04/14/2009 Document Revised: 07/07/2019 Document Reviewed: 07/07/2019 [employer] Patient Education 2020 [employer] 07/13/2023 16:48:50 Angina, Idux-uh-Gzmy Angina Angina is very bad discomfort or pain in the chest, neck, arm, jaw, or back. The discomfort is caused by a lack of blood in the middle layer of the heart wall (myocardium). What are the causes? This condition is caused by a buildup of fat and cholesterol (plaque) in your arteries (atherosclerosis). This buildup narrows the arteries and makes it hard for blood to flow. What increases the risk? You are more likely to develop this condition if: You have high levels of cholesterol in your blood. You have high blood pressure (hypertension). You have diabetes. You have a family history of heart disease. You are not active, or you do not exercise enough. You feel sad (depressed). You have been treated with high energy rays (radiation) on the left side of your chest. Other risk factors are: Using tobacco. Being very overweight (obese). Eating a diet high in unhealthy fats (saturated fats). Having stress, or being exposed to things that cause stress. Using drugs, such as cocaine. Women have a greater risk for angina if: They are older than 55. They have stopped having their period (are in postmenopause). What are the signs or symptoms? Common symptoms of this condition in both men and women may include: Chest pain, which may: ?Feel like a crushing or squeezing in the chest. ?Feel like a tightness, pressure, fullness, or heaviness in the chest. ?Last for more than a few minutes at a time. ?Stop and come back (recur) after a few minutes. Pain in the neck, arm, jaw, or back. Heartburn or upset stomach (indigestion) for no reason. Being short of breath. Feeling sick to your stomach (nauseous). Sudden cold sweats. Women and people with diabetes may have other symptoms that are not usual, such as feeling: Tired (fatigue). Worried or nervous (anxious) for no reason. Weak for no reason. Dizzy or passing out (fainting). How is this treated? This condition may be treated with: Medicines. These are given to: ?Prevent blood clots. ?Prevent heart attack. ?Relax blood vessels and improve blood flow to the heart (nitrates). ?Reduce blood pressure. ?Improve the pumping action of the heart. ?Reduce fat and cholesterol in the blood. A procedure to widen a narrowed or blocked artery in the heart (angioplasty). Surgery to allow blood to go around a blocked artery (coronary artery bypass surgery). Follow these instructions at home: Medicines Take mkzm-ogo-qogqhhf and prescription medicines only as told by your doctor. Do not take these medicines unless your doctor says that you can: ?NSAIDs. These include: ?Ibuprofen. ?Naproxen. ?Vitamin supplements that have vitamin A, vitamin E, or both. ?Hormone therapy that contains estrogen with or without progestin. Eating and drinking Eat a heart-healthy diet that includes: ?Lots of fresh fruits and vegetables. ?Whole grains. ?Low-fat (lean) protein. ?Low-fat dairy products. Follow instructions from your doctor about what you cannot eat or drink. Activity Follow an exercise program that your doctor tells you. Talk with your doctor about joining a program to help improve the health of your heart (cardiac rehab). When you feel tired, take a break. Plan breaks if you know you are going to feel tired. Lifestyle Do not use any products that contain nicotine or tobacco. This includes cigarettes, e-cigarettes, and chewing tobacco. If you need help quitting, ask your doctor. If your doctor says you can drink alcohol: ?Limit how much you use to: ?0 1 drink a day for women who are not . ? 0 2 drinks a day for men. ?Be aware of how much alcohol is in your drink. In the [place] one drink equals: ?One 12 oz bottle of beer (355 mL). ?One 5 oz glass of wine (148 mL). ?One 1 oz glass of hard liquor (44 mL). General instructions Stay at a healthy weight. If your doctor tells you to do so, work with him or her to lose weight. Learn to deal with stress. If you need help, ask your doctor. Keep your vaccines up to date. Get a flu shot every year. Talk with your doctor if you feel sad. Take a screening test to see if you are at risk for depression. Work with your doctor to manage any other health problems that you have. These may include diabetesor high blood pressure. Keep all follow-up visits as told by your doctor. This is important. Get help right away if: You have pain in your chest, neck, arm, jaw, or back, and the pain: ?Lasts more than a few minutes. ?Comes back. ?Does not get better after you take medicine under your tongue (sublingual nitroglycerin). ?Keeps getting worse. ?Comes more often. You have any of these problems for no reason: ?Sweating a lot. ?Heartburn or upset stomach. ?Shortness of breath. ?Trouble breathing. ?Feeling sick to your stomach. ?Throwing up (vomiting). ?Feeling more tired than normal. ?Feeling nervous or worrying more than normal. ?Weakness. You are suddenly dizzy or light-headed. You pass out. These symptoms may be an emergency. Do not wait to see if the symptoms will go away. Get medical help right away. Call your local emergency services (911 in the [place] Do not drive yourself to the hospital. Summary Angina is very bad discomfort or pain in the chest, neck, arm, neck, or back. Symptoms include chest pain, heartburn or upset stomach for no reason, and shortness of breath. Women or people with diabetes may have symptoms that are not usual, such as feeling nervous or worried for no reason, weak for no reason, or tired. Take all medicines only as told by your doctor. You should eat a heart-healthy diet and follow an exercise program. This information is not intended to replace advice given to you by your health care provider. Make sure you discuss any questions you have with your health care provider. Document Released: 04/14/2009 Document Revised: 06/14/2019 Document Reviewed: 06/14/2019 [employer] Patient Education 2020 [employer]. Follow Up Care 07/11/2023 03:17:24 With:ARDEN CLARK MD Address: [address] [facility] [place] [phone] When:5 to 7 days Comments:Please call the office to schedule your hospital follow up appointment with cardiology. With:Follow up with primary care provider Address: When:5 to 7 days With:CANDE FLORES MD Address: [address] [facility] [place] [address]- When:08/06/2023 14:15:00 [facility] 09-03-2023 Note Discharge Instructions Thank you for allowing [facility] to assist you with your healthcare needs. The following is importantdischarge information regarding your hospital visit. Your Care Team PHYSICIAN, NONE What to do next Scheduled Follow-Up Appointments Appointment Type When Where Contact InformationCV OV 08/06/2023 02:15 PM EDT [facility] CV Follow Up Appointments Follow Up with CANDE FLORES MD When 08/06/2023 02:15 PM EDT Where: [address] [facility] [place] [address]- Follow Up with ARDEN CLARK MD When Within 5 to 7 days Why: Please call the office to schedule your hospital follow up appointment with cardiology. Where: [address] [facility] [place] [address]- [phone] Follow Up with Follow up with primary care provider When Within 5 to 7 days Where: The Following Activity and Diet Have Been Ordered for You No qualifying data available. No qualifying data available. The Following Equipment Has Been Ordered for You No qualifying data available. The Following Treatments Have Been Ordered for You Discharge Labs No qualifying data available. Discharge Radiology No qualifying data available. Other Therapies No qualifying data available. Post Acute Orders No qualifying data available. Someone Will Contact You Regarding These Home Health Referrals No home referrals have been ordered for you. No one will call you. Allergies No Known Medication Allergies Medications Please ask your primary doctor or pharmacist before taking any other medication not listed, including over the counter drugs, herbal medications, vitamins and or supplements as they may interact withyour home medications. What How Much When Instructions Last Dose New aspirin (aspirin 81 mg oral tablet, chewable) 1 tab(s) by mouth Once a day Pickup at [facility] New atorvastatin (atorvastatin 40 mg oral tablet) 1 tab(s) by mouth Once a day Pickup at [facility] New carvedilol (Coreg 6.25 mg oral tablet) 1 tab(s) by mouth Twice daily with meals Pickup at [facility] New furosemide (Lasix 40 mg oral tablet) 1 tab(s) by mouth Once a day Pickup at [facility] New prasugrel (prasugrel 10 mg oral tablet) 1 tab(s) by mouth Once a day Pickup at [facility] New sacubitril-valsartan (Entresto 24 mg-26 mg oral tablet) 1 tab(s) by mouth Two (2) times a day Pickup at [facility] Pharmacy Information [facility]: [address] [phone] Please take this list to your next doctor s visit. Bring all medications you take, including over the counter medications, herbals and other supplements with you to your doctor s visit. Patients and families are reminded to discard old lists and to update any records with all medication providers or retail pharmacies. Medication Leaflets atorvastatin (a TOR va sta tin) Atorvaliq, Lipitor What is the most important information I should know about atorvastatin? You should not take atorvastatin if you have liver disease or cirrhosis. Atorvastatin can cause the breakdown of muscle tissue, which can lead to kidney failure. Call your doctor right away if you have unexplained muscle pain, tenderness, or weakness especially if you also have fever, unusual tiredness, or dark urine. What is atorvastatin? Atorvastatin is used together with diet to lower blood levels of 'bad' cholesterol (low-density lipoprotein, or LDL), to increase levels of 'good' cholesterol (high-density lipoprotein, or HDL), and to lower triglycerides (a type of fat in the blood). Atorvastatin is used to lower the risk of stroke, heart attack, or other heart complications in adults with or without type 2 diabetes or heart disease or other risk factors. Atorvastatin is also used alone, or along with diet, or with other cholesterol- lowering medicationsin adults and children aged 10 years and older with an inherited condition that causes high levels of bad cholesterol. Atorvastatin may also be used for purposes not listed in this medication guide. What should I discuss with my healthcare provider before taking atorvastatin? You should not use atorvastatin if you are allergic to it, or if you have liver failure or cirrhosis. Tell your doctor if you have or have ever had: muscle pain or weakness; diabetes; stroke; a thyroid disorder; a habit of drinking more than 2 alcoholic beverages per day; or kidney disease. Atorvastatin can cause the breakdown of muscle tissue, which can lead to kidney failure. This happens more often in women, in older adults, or people who have kidney disease or poorly controlled hypothyroidism (underactive thyroid). Atorvastatin may harm an unborn baby. Tell your doctor if you are . Ask a doctor if it is safe to breastfeed while using this medicine. How should I take atorvastatin? Follow all directions on your prescription label and read all medication guides or instruction sheets. Your doctor may occasionally change your dose. Use the medicine exactly as directed. Do not change your dose or stop taking any of your medications without your doctor's advice. Atorvastatin is usually taken once per day. Follow your doctor's instructions. You may take atorvastatin tablet with or without food. Take atorvastatin liquid medicine on an empty stomach, at least 1 hour before a meal or 2 hours after a meal. It may take up to 2 weeks before your cholesterol levels improve, and you may need frequent blood tests. Even if you have no symptoms, tests can help your doctor determine if this medicine is effective. Shake the oral suspension (liquid). Measure a dose with the supplied measuring device (not a kitchen spoon). Your treatment may also include diet, exercise, weight control, and blood tests. Store at room temperature away from moisture, heat, and light. Throw away in the trash any unused liquid 60 days after opening the bottle. What happens if I miss a dose? Take the medicine as soon as you can, but skip the missed dose if you are more than 12 hours late for the dose. Do not take two doses at one time. What happens if I overdose? Seek emergency medical attention or call the Poison Help line at . What should I avoid while taking atorvastatin? Avoid eating foods high in fat or cholesterol, or atorvastatin will not be as effective. Drinking alcohol may increase your risk of liver damage. Grapefruit may interact with atorvastatin and cause side effects. Avoid consuming grapefruit products and drinking more than 1.2 liters of grapefruit juice each day. What are the possible side effects of atorvastatin? Get emergency medical help if you have signs of an allergic reaction (hives, difficult breathing, swelling in your face or throat) or a severe skin reaction (fever, sore throat, burning eyes, skin pain, red or purple skin rash with blistering and peeling). Atorvastatin can cause the breakdown of muscle tissue, which can lead to kidney failure. Call your doctor right away if you have unexplained muscle pain, tenderness, or weakness especially if you also have fever, unusual tiredness, or dark urine. Muscle problems may be more likely in older adults and those who have kidney problems, thyroid problems, or take certain other medicines. Also call your doctor at once if you have: muscle weakness in your hips, shoulders, neck, and back; trouble lifting your arms, trouble climbing or standing; liver problems--loss of appetite, stomach pain (upper right side), tiredness, itching, dark urine, keshawn-colored stools, jaundice (yellowing of the skin or eyes); kidney problems--swelling, urinating less, feeling tired or short of breath; or high blood sugar--increased thirst, increased urination, dry mouth, fruity breath odor. Common side effects may include: pain in your bones, spine, joints, or muscles; pain and burning when you urinate, painful urination; muscle spasms; upset stomach; trouble sleeping; stuffy nose, runny nose, sore throat; diarrhea, nausea; or pain in your arms or legs. This is not a complete list of side effects and others may occur. Call your doctor for medical advice about side effects. You may report side effects to FDA at 2-355-SGZ-5453. What other drugs will affect atorvastatin? Sometimes it is not safe to use certain medicines at the same time. Some drugs can affect your blood levels of other drugs you use, which can increase risk of serious muscle problems or make the medicines less effective. Tell your doctor about all your current medicines. Many drugs can affect atorvastatin, especially: other cholesterol lowering medicine--gemfibrozil, niacin, fenofibrate, fenofibric acid, and others; colchicine; antibiotic or antifungal medicine--rifampin, erythromycin, clarithromycin, itraconazole, ketoconazole, posaconazole, and voriconazole; control pills; medicine to prevent organ transplant rejection; or antiviral medicine to treat hepatitis C or HIV. This list is not complete and many other drugs may affect atorvastatin. This includes prescription and lhvr-pjh-mottesb medicines, vitamins, and herbal products. Not all possible drug interactions are listed here. Where can I get more information? Your doctor or pharmacist can provide more information about atorvastatin. Remember, keep this and all other medicines out of the reach of children, never share your medicines with others, and use this medication only for the indication prescribed. Every effort has been made to ensure that the information provided by [employer]. [employer]') is accurate, up-to-date, and complete, but no guarantee is made to that effect. Drug information contained herein may be time sensitive. [employer] information has been compiled for use by healthcare practitioners and consumers in the [place] and therefore [employer] does not warrant that uses outside of the [place] are appropriate, unless specifically indicated otherwise. [employer] drug information does not endorse drugs, diagnose patients or recommend therapy. [employer] drug information isan informational resource designed to assist licensed healthcare practitioners in caring for their p atients and/or to serve consumers viewing this service as a supplement to, and not a substitute for, the expertise, skill, knowledge and judgment of healthcare practitioners. The absence of a warningfor a given drug or drug combination in no way should be construed to indicate that the drug or drug combination is safe, effective or appropriate for any given patient. [employer] does not assume any responsibility for any aspect of healthcare administered with the aid of information [employer] provides. The information contained herein is not intended to cover all possible uses, directions, precautions, warnings, drug interactions, allergic reactions, or adverse effects. If you have questions about the drugs you are taking, check with your doctor, nurse or pharmacist. Copyright 6795-0572 [employer]. Version: 23.02. Revision Date: 05/01/2023. prasugrel (PRA paco grel) Effient What is the most important information I should know about prasugrel? Prasugrel increases your risk of bleeding, which can be severe or life- threatening. Call your doctor or seek emergency medical attention if you have bleeding that will not stop, if you have black or bloody stools, or if you cough up blood or vomit that looks like coffee grounds. You may need to stop using the medicine for a short time before any surgery or dental treatment. Donot stop taking prasugrel unless your doctor tells you to. What is prasugrel? Prasugrel is used in people who've had a balloon angioplasty to open blocked arteries after having a heart attack or severe chest pain. Prasugrel may help lower your risk of having another heart attack or stroke. Prasugrel may also be used for other purposes not listed in this medication guide. What should I discuss with my healthcare provider before taking prasugrel? You should not use prasugrel if you are allergic to it, or if you have: active bleeding such as a stomach ulcer or bleeding in the brain (such as from a head injury); a history of stroke, including TIA ('mini-stroke'); or if you are scheduled to have surgery, especially heart bypass surgery (coronary artery bypass graft, or CABG). Tell your doctor if you have ever had: a stomach ulcer, colon polyps, or diverticulosis; bleeding problems; surgery, an injury, or a medical emergency; liver or kidney disease; if you are allergic to clopidogrel or ticlopidine; if you weigh less than 132 pounds (60 kilograms); or if you also use other medicines to treat or prevent blood clots. Tell your doctor if you are or . How should I take prasugrel? Follow all directions on your prescription label and read all medication guides or instruction sheets. Use the medicine exactly as directed. If you also take aspirin, follow your doctor's instructions about how much to take and for how long. Prasugrel can be taken with or without food. Swallow the tablet whole and do not crush, chew, or break it. Because prasugrel keeps your blood from clotting, this medicine can also make it easier for you to bleed, even from a minor injury. Seek emergency medical attention if you have any bleeding that willnot stop. Tell your doctor if you have a planned surgery or dental work. Do not stop using prasugrel without your doctor's advice, even if you feel fine. Stopping this medicine too soon may increase your risk of a blood clot, heart attack, or . Store at room temperature away from moisture and heat. Keep the tablets in their original container, along with the packet or canister of moisture-absorbing preservative. What happens if I miss a dose? Take the medicine as soon as you can, but skip the missed dose if it is almost time for your next dose. Do not take two doses at one time. What happens if I overdose? Seek emergency medical attention or call the Poison Help line at . What should I avoid while taking prasugrel? Avoid activities that may increase your risk of bleeding or injury. Use extra care while shaving orbrushing your teeth. Ask your doctor before taking a nonsteroidal anti-inflammatory drug (NSAID) such as aspirin, ibuprofen, naproxen, Advil, Aleve, Motrin, and others. Using an NSAID with prasugrel may cause you to bruise or bleed easily. What are the possible side effects of prasugrel? Get emergency medical help if you have signs of an allergic reaction: hives; dizziness, chest pain,difficulty breathing; swelling of your face, lips, tongue, or throat. Prasugrel increases your risk of bleeding, which can be severe or life-threatening. Call your doctor at once if you have: a light-headed feeling, like you might pass out; any bleeding that will not stop; pink or brown urine; signs of a serious blood-clotting problem--pale skin, purple spots under your skin or on your mouth, fever, fast heart rate, weakness, stomach pain, trouble breathing, jaundice (yellowing of the skinor eyes); signs of stomach bleeding--bloody or tarry stools, coughing up blood or vomit that looks like coffee grounds; or signs of a stroke--sudden numbness or weakness (especially on one side of the body), sudden severe headache, slurred speech, problems with vision or balance. The risk of bleeding is higher in older adults. Common side effects may include: nosebleeds; or easy bruising or bleeding. This is not a complete list of side effects and others may occur. Call your doctor for medical advice about side effects. You may report side effects to FDA at 5-876-ROI-1441. What other drugs will affect prasugrel? Tell your doctor about all your other medicines, especially: opioid medication; or any other medicines to treat or prevent blood clots, including heparin or warfarin (Coumadin, Jantoven). This list is not complete. Other drugs may affect prasugrel, including prescription and ritn-dtf-cerdton medicines, vitamins, and herbal products. Not all possible drug interactions are listed here. Where can I get more information? Your pharmacist can provide more information about prasugrel. Remember, keep this and all other medicines out of the reach of children, never share your medicines with others, and use this medication only for the indication prescribed. Every effort has been made to ensure that the information provided by [employer]. ('[employer]') is accurate, up-to-date, and complete, but no guarantee is made to that effect. Drug information contained herein may be time sensitive. [employer] information has been compiled for use by healthcare practitioners and consumers in the [place] and therefore [employer] does not warrant that uses outside of the [place] are appropriate, unless specifically indicated otherwise. [employer] drug information does not endorse drugs, diagnose patients or recommend therapy. [employer] drug information isan informational resource designed to assist licensed healthcare practitioners in caring for their p atients and/or to serve consumers viewing this service as a supplement to, and not a substitute for, the expertise, skill, knowledge and judgment of healthcare practitioners. The absence of a warningfor a given drug or drug combination in no way should be construed to indicate that the drug or drug combination is safe, effective or appropriate for any given patient. [employer] does not assume any responsibility for any aspect of healthcare administered with the aid of information [employer] provides. The information contained herein is not intended to cover all possible uses, directions, precautions, warnings, drug interactions, allergic reactions, or adverse effects. If you have questions about the drugs you are taking, check with your doctor, nurse or pharmacist. Copyright [id number] [employer]. Version: 7.01. Revision Date: 04/18/2021. aspirin (oral) ( pir in) Aspi-Cor, Matt Plus, Durlaza, Ecotrin, Miniprin, Vazalore What is the most important information I should know about aspirin? Aspirin can cause Zina's syndrome, a serious and sometimes fatal condition in children. What is aspirin? Aspirin is a salicylate (me-APR-bz-ate) that is used to treat pain, and reduce fever or inflammation. Aspirin is sometimes used to treat or prevent heart attacks, strokes, and chest pain (angina). Aspirin should be used for these conditions only under the supervision of a doctor. Aspirin may also be used for purposes not listed in this medication guide. What should I discuss with my healthcare provider before taking aspirin? Using aspirin in a child or teenager with flu symptoms or chickenpox can cause a serious or fatal condition called Zina's syndrome. You should not use aspirin if you are allergic to it, or if you have: a recent history of stomach or intestinal bleeding; a bleeding disorder such as hemophilia; or if you have ever had an asthma attack or severe allergic reaction after taking aspirin or an NSAID (non-steroidal anti-inflammatory drug). Tell your doctor if you have ever had: asthma or seasonal allergies; stomach ulcers; liver disease; kidney disease; a bleeding or blood clotting disorder; gout; or heart disease, high blood pressure, or congestive heart failure. Taking aspirin during late may cause bleeding in the mother or the baby during delivery. Tell your doctor if you are or plan to become . You should not breastfeed while using this medicine. How should I take aspirin? Use exactly as directed on the label, or as prescribed by your doctor. Always follow directions on the medicine label about giving aspirin to a child. Take with food if aspirin upsets your stomach. You must chew the chewable tablet before you swallow it. Do not crush, chew, break, or open an enteric-coated or delayed/extended-release pill. Swallow it whole. Tell your doctor if you have a planned surgery. Store at room temperature away from moisture and heat. Do not use aspirin if you smell a strong vinegar odor in the aspirin bottle. The medicine may no longer be effective. What happens if I miss a dose? Aspirin is used when needed. If you are on a dosing schedule, skip any missed dose. Do not use two doses at one time. What happens if I overdose? Seek emergency medical attention or call the Poison Help line at . Overdose may cause stomach pain, vomiting, diarrhea, vision or hearing problems, fast or slow breathing, or confusion. What should I avoid while taking aspirin? Avoid alcohol. Heavy drinking can increase your risk of stomach bleeding. Avoid taking ibuprofen if you take aspirin to prevent stroke or heart attack. Ibuprofen can make aspirin less effective in protecting your heart and blood vessels. Ask your doctor how far apart your doses should be. Ask a doctor or pharmacist before using other medicines for pain, fever, swelling, or cold/flu symptoms. They may contain ingredients similar to aspirin (such as magnesium salicylate, ibuprofen, ketoprofen, or naproxen). What are the possible side effects of aspirin? Get emergency medical help if you have signs of an allergic reaction: hives; difficult breathing; swelling of your face, lips, tongue, or throat. Stop using aspirin and call your doctor at once if you have: ringing in your ears, confusion, hallucinations, rapid breathing, seizure (convulsions); severe nausea, vomiting, or stomach pain; bloody or tarry stools, coughing up blood or vomit that looks like coffee grounds; fever lasting longer than 3 days; or swelling, or pain lasting longer than 10 days. Common side effects may include: upset stomach, heartburn; drowsiness; or mild headache. This is not a complete list of side effects and others may occur. Call your doctor for medical advice about side effects. You may report side effects to FDA at 9-698-GAR-3598. What other drugs will affect aspirin? Ask your doctor before using aspirin if you take an antidepressant. Taking certain antidepressants with aspirin may cause you to bruise or bleed easily. Ask a doctor or pharmacist before using aspirin with any other medications, especially: a blood thinner (warfarin, Coumadin, Jantoven), or other medication used to prevent blood clots; or other salicylates such as Nuprin Backache Caplet, Kaopectate, KneeRelief, Pamprin Cramp Formula, Pepto-Bismol, Tricosal, Trilisate, and others. This list is not complete. Other drugs may affect aspirin, including prescription and bkkx-sbm-qnspxjm medicines, vitamins, and herbal products. Not all possible drug interactions are listed here. Where can I get more information? Your pharmacist can provide more information about aspirin. Remember, keep this and all other medicines out of the reach of children, never share your medicines with others, and use this medication only for the indication prescribed. Every effort has been made to ensure that the information provided by [employer]. [employer]') is accurate, up-to-date, and complete, but no guarantee is made to that effect. Drug information contained herein may be time sensitive. [employer] information has been compiled for use by healthcare practitioners and consumers in the [place] and therefore [employer] does not warrant that uses outside of the [place] are appropriate, unless specifically indicated otherwise. [employer] drug information does not endorse drugs, diagnose patients or recommend therapy. [employer] drug information isan informational resource designed to assist licensed healthcare practitioners in caring for their p atients and/or to serve consumers viewing this service as a supplement to, and not a substitute for, the expertise, skill, knowledge and judgment of healthcare practitioners. The absence of a warningfor a given drug or drug combination in no way should be construed to indicate that the drug or drug combination is safe, effective or appropriate for any given patient. [facility] does not assume any responsibility for any aspect of healthcare administered with the aid of information [facility] provides. The information contained herein is not intended to cover all possible uses, directions, precautions, warnings, drug interactions, allergic reactions, or adverse effects. If you have questions about the drugs you are taking, check with your doctor, nurse or pharmacist. Copyright [id number] [facility]. Version: 18.01. Revision Date: 06/02/2023. furosemide (oral/injection) (fur [place] se mide) Furoscix, Lasix What is the most important information I should know about furosemide? You should not use this medicine if you are unable to urinate. Using more than your recommended dose will not make this medicine more effective. High doses of furosemide may cause irreversible hearing loss. Tell your doctor about all your other medicines. Some drugs should not be used with furosemide. What is furosemide? Furosemide is used to treat fluid retention (edema) in people with congestive heart failure, liver disease, or a kidney disorder such as nephrotic syndrome. Furosemide is also used to treat high blood pressure (hypertension). The Furiosi brand of furosemide is only used in adults. Furosemide may also be used for purposes not listed in this medication guide. What should I discuss with my healthcare provider before using furosemide? You should not use furosemide if you are allergic to it, if you are unable to urinate or have hepatic cirrhosis. You should not use Furiosi if you have ascites or have allergies to medical adhesives. Tell your doctor if you have ever had: an electrolyte imbalance (such as low levels of potassium or magnesium in your blood); enlarged prostate, bladder obstruction, or other urination problems; gout; lupus; diabetes; an allergy to sulfa drugs; kidney disease; or cirrhosis or other liver disease. Tell your doctor if you have an MRI (magnetic resonance imaging) or any type of scan using a radioactive dye that is injected into a vein. Contrast dyes and furosemide can harm your kidneys. It is not known if furosemide will harm an unborn baby. Tell your doctor if you are or plan to become . It may not be safe to breastfeed while using this medicine. Ask your doctor about any risk. Furosemide may slow breast milk production. How should I use furosemide? Follow all directions on your prescription label and read all medication guides or instruction sheets. Use the medicine exactly as directed. Furosemide oral is taken by mouth. Furosemide injection is given in a muscle, under the skin, or isaac vein. A healthcare provider will give you this injection if you are unable to take the medicine by mouth. Furiosi infusion lasts about 5 hours. Furiosi should not get wet. Do not bathe, shower, swim or exercise while wearing the infusor. Also do not apply any products such as lotions or creams in the area where the infusor is placed. It is not recommended to travel by car or airplane while using Furiosi. Also do not use the infusorwithin 12 inches of mobile phones, tablets, computers, or wireless accessories such as remote control, or [employer] devices. Do not reuse a needle, syringe or cartridge. Place them in a puncture-proof 'sharps' container and dispose of it following state or local laws. Keep out of the reach of children and pets. You may receive your first dose in a hospital or clinic setting if you have severe liver disease. Do not use more than your recommended dose. High doses of furosemide may cause irreversible hearingloss. Measure liquid medicine with the supplied measuring device (not a kitchen spoon). Doses are based on weight in children and teenagers. Your child's dose may change if the child gains or loses weight. Furosemide will make you urinate more often and you may get dehydrated easily. Follow your doctor'sinstructions about using potassium supplements or getting enough salt and potassium in your diet. Your blood pressure will need to be checked often and you may need other medical tests. If you have high blood pressure, keep using this medicine even if you feel well. High blood pressure often has no symptoms. If you need surgery, tell the surgeon ahead of time that you are using furosemide. Store at room temperature away from moisture, heat, and light. Throw away any unused oral liquid after 90 days. What happens if I miss a dose? Furosemide is sometimes used only once, so you may not be on a dosing schedule. If you are using the medication regularly, use the medicine as soon as you can, but skip the missed dose if it is almost time for your next dose. Do not use two doses at one time. What happens if I overdose? Seek emergency medical attention or call the Poison Help line at . Overdose symptoms may include feeling very thirsty or hot, heavy sweating, hot and dry skin, extreme weakness, or fainting. What should I avoid while using furosemide? Avoid getting up too fast from a sitting or lying position, or you may feel dizzy. Avoid becoming dehydrated. Follow your doctor's instructions about the type and amount of liquids you should drink while you are using furosemide. Drinking alcohol with this medicine can cause side effects. Furosemide could make you sunburn more easily. Avoid sunlight or tanning beds. Wear protective clothing and use sunscreen (SPF 30 or higher) when you are outdoors. If you have high blood pressure, ask a doctor or pharmacist before taking any medicines that can raise your blood pressure, such as diet pills or rgscp-rxw-oeeg medicine. What are the possible side effects of furosemide? Get emergency medical help if you have signs of an allergic reaction (hives, difficult breathing, swelling in your face or throat) or a severe skin reaction (fever, sore throat, burning eyes, skin pain, red or purple skin rash with blistering and peeling). Call your doctor at once if you have: a light-headed feeling, like you might pass out; ringing in your ears, hearing loss; muscle spasms or contractions; pale skin, easy bruising, unusual bleeding; high blood sugar--increased thirst, increased urination, dry mouth, fruity breath odor; kidney problems--swelling, urinating less, feeling tired or short of breath signs of liver or pancreas problems--loss of appetite, upper stomach pain (that may spread to your back), nausea or vomiting, dark urine, jaundice (yellowing of the skin or eyes); or signs of an electrolyte imbalance--increased thirst or urination, constipation, muscle weakness, leg cramps, numbness or tingling, feeling jittery, fluttering in your chest. Common side effects may include: diarrhea, constipation, loss of appetite; numbness or tingling; headache, dizziness; or blurred vision. This is not a complete list of side effects and others may occur. Call your doctor for medical advice about side effects. You may report side effects to FDA at 3-860-JED-2845. What other drugs will affect furosemide? Sometimes it is not safe to use certain medicines at the same time. Some drugs can affect your blood levels of other drugs you use, which may increase side effects or make the medicines less effective If you also take sucralfate, take your furosemide dose 2 hours before or 2 hours after you take sucralfate. Tell your doctor about all your other medicines, especially: another diuretic, especially ethacrynic acid; methotrexate; chloral hydrate; lithium; phenytoin; an antibiotic; cancer medicine, such as cisplatin; heart or blood pressure medicine; or NSAIDs (nonsteroidal anti-inflammatory drugs)--aspirin, ibuprofen (Advil, Motrin), naproxen (Aleve), celecoxib, diclofenac, indomethacin, meloxicam, and others. This list is not complete. Other drugs may affect furosemide, including prescription and vhfm-hvs-zrpejkk medicines, vitamins, and herbal products. Not all possible drug interactions are listed here. Where can I get more information? Your doctor or pharmacist can provide more information about furosemide. Remember, keep this and all other medicines out of the reach of children, never share your medicines with others, and use this medication only for the indication prescribed. Every effort has been made to ensure that the information provided by [employer]. [employer]') is accurate, up-to-date, and complete, but no guarantee is made to that effect. Drug information contained herein may be time sensitive. [employer] information has been compiled for use by healthcare practitioners and consumers in the [place] and therefore [employer] does not warrant that uses outside of the [place] are appropriate, unless specifically indicated otherwise. [employer] drug information does not endorse drugs, diagnose patients or recommend therapy. [employer] drug information isan informational resource designed to assist licensed healthcare practitioners in caring for their p atients and/or to serve consumers viewing this service as a supplement to, and not a substitute for, the expertise, skill, knowledge and judgment of healthcare practitioners. The absence of a warningfor a given drug or drug combination in no way should be construed to indicate that the drug or drug combination is safe, effective or appropriate for any given patient. [employer] does not assume any responsibility for any aspect of healthcare administered with the aid of information [employer] provides. The information contained herein is not intended to cover all possible uses, directions, precautions, warnings, drug interactions, allergic reactions, or adverse effects. If you have questions about the drugs you are taking, check with your doctor, nurse or pharmacist. Copyright [id number] [employer]. Version: 18.. Revision Date: 01/17/2023. carvedilol (KELLE ve dil ole) Na [place] What is the most important information I should know about carvedilol? You should not take carvedilol if you have asthma, bronchitis, emphysema, severe liver disease, or a serious heart condition such as heart block, 'sick sinus syndrome,' or slow heart rate (unless youhave a pacemaker). What is carvedilol? Carvedilol is a beta-andre that is used to treat heart failure and hypertension (high blood pressure). Carvedilol is also used after a heart attack that has caused your heart not to pump as well. Carvedilol may also be used for purposes not listed in this medication guide. What should I discuss with my healthcare provider before taking carvedilol? You should not take carvedilol if you are allergic to it, or if you have: asthma, bronchitis, emphysema; severe liver disease; or a serious heart condition such as severe heart failure, heart block, 'sick sinus syndrome,' or slowheart rate (unless you have a pacemaker). Tell your doctor if you have ever had: coronary artery disease (clogged arteries); slow heartbeats that have caused you to faint; fluid retention; asthma or other lung problems; angina (chest pain); diabetes (taking carvedilol can make it harder for you to tell when you have low blood sugar); a thyroid disorder; kidney disease; circulation problems (such as Raynaud's syndrome); or pheochromocytoma (tumor of the adrenal gland). Tell your doctor if you are or . Carvedilol is not approved for use by anyone younger than 18 years old. How should I take carvedilol? Follow all directions on your prescription label and read all medication guides or instruction sheets. Your doctor may occasionally change your dose. Use the medicine exactly as directed. Carvedilol works best if you take it with food, at the same time every day. Swallow the extended-release capsule whole and do not crush, chew, break, or open it. If you cannot swallow a capsule whole, open it and sprinkle the medicine into a spoonful of cold applesauce. Swallow the mixture right away without chewing. Do not save it for later use. If you are switched from carvedilol tablets to carvedilol extended-release capsules (Coreg CR), your daily total dose of this medicine may be higher or lower than before. Older adults may be more likely to become dizzy or feel faint when switching from tablets to extended-release capsules. Follow your doctor's instructions. Your blood pressure will need to be checked often. If you need surgery (including cataract surgery), tell your surgeon you currently use this medicine. You may need to stop for a short time. You should not stop using carvedilol suddenly. Stopping suddenly may cause chest pain or a heart attack. Follow your doctor's instructions about tapering your dose. If you are being treated for high blood pressure, keep using this medication even if you feel well.High blood pressure often has no symptoms. You may need to use blood pressure medication for the rest of your life. Carvedilol is only part of a complete treatment program that may also include diet, exercise, and weight control. Follow your doctor's instructions very closely. Store at room temperature away from moisture and heat. What happens if I miss a dose? Take the medicine as soon as you can, but skip the missed dose if it is almost time for your next dose. Do not take two doses at one time. What happens if I overdose? Seek emergency medical attention or call the Poison Help line at . Overdose symptoms may include uneven heartbeats, shortness of breath, bluish- colored fingernails, dizziness, weakness, fainting, and seizure (convulsions). What should I avoid while taking carvedilol? Avoid driving or hazardous activity until you know how this medicine will affect you. Your reactions could be impaired. Avoid getting up too fast from a sitting or lying position, or you may feel dizzy. What are the possible side effects of carvedilol? Get emergency medical help if you have signs of an allergic reaction: hives; difficulty breathing; swelling of your face, lips, tongue, or throat. Call your doctor at once if you have: a light-headed feeling, like you might pass out; slow or uneven heartbeats; cold feeling or numbness in your fingers or toes; chest pain, dry cough, wheezing, chest tightness; heart problems--swelling, rapid weight gain, feeling short of breath; or high blood sugar--increased thirst, increased urination, dry mouth, fruity breath odor. Common side effects may include: dizziness; slow heartbeats; diarrhea; weight gain; dry eyes; or problems wearing contact lenses. This is not a complete list of side effects and others may occur. Call your doctor for medical advice about side effects. You may report side effects to FDA at 9-074-BJF-4665. What other drugs will affect carvedilol? Sometimes it is not safe to use certain medications at the same time. Some drugs can affect your blood levels of other drugs you take, which may increase side effects or make the medications less effective. Other drugs may affect carvedilol, including prescription and [id number] medicines, vitamins,and herbal products. Tell your doctor about all your current medicines and any medicine you start or stop using. Where can I get more information? Your pharmacist can provide more information about carvedilol. [id number] Discharge summary Date of Service 07/13/23 Discharge Diagnosis Ischemic Cardiomyopathy, CAD, HFrEF Hospital Course 37-year-old gentleman who was admitted to CCU for evaluation and management of new onset heart failure/hypertensive urgency. Patient was started on heparin by weight due to concern for unstable angina/NSTEMI in the ER. CT angiogram of the chest was negative for PE (done initially due to D-dimer being 233) but revealed mildly enlarged mediastinal/hilar lymph nodes. Patient was loaded with aspirin and was sent to [facility] for further management. His TTE revealed reduced LVEF 30-35% and his urine toxicology revealed methamphetamine use. He underwent [facility] 07/11/23 which revealed 95% stenosis of RCA which was stented and he was placed on DAPT. His HFrEF was treated with IV lasix 40mg BID, he was started on GDMT which isto be optimized on an outpatient basis. Of note, when stressing the urgency and importance of following up with cardiology outpatient and maintaining pharmacological adherence, patient said I don't see doctors or take meds, call my mom. We relayed this information to the patient's mother, Eleanor Lopez at [phone]. Allergies No Known Medication Allergies Procedures [facility] 07/11/23 Consults No qualifying data available. Objective Vitals and Measurements T: 36.9 C (Oral) TMIN: 36.6 C (Oral) TMAX: 36.9 C (Oral) HR: 83(Monitored) RR: 18 BP: 149/84 SpO2: 95% Weight Dosing Weight: 153.5 kg (07/11/23) General Appearance: NAD Head: NCAT EENT: no gross abnormalities Neck: no JVD appreciated Cardiac: NS1S2 Lungs: CTAB Abdomen: soft, NT/ND Musculoskeletal: ROM wnl Extremities: no pitting edema Neurological: no focal deficits Skin: warm, dry Psychiatric: normal mentation Code Status Code Status - Ordered -- 07/11/23 3:49:00 EDT, Full Code, Constant Order Admission Date 07/11/23 Discharge Date 07/13/23 Medications New Prescription aspirin (aspirin 81 mg oral tablet, chewable)1 tab(s) by mouth once a day. Refills: 0. atorvastatin (atorvastatin 40 mg oral tablet)1 tab(s) by mouth once a day. Refills: 0. carvedilol (Coreg 6.25 mg oral tablet)1 tab(s) by mouth twice daily with meals. Refills: 0. furosemide (Lasix 40 mg oral tablet)1 tab(s) by mouth once a day. Refills: 0. prasugrel (prasugrel 10 mg oral tablet)1 tab(s) by mouth once a day. Refills: 0. sacubitril-valsartan (Entresto 24 mg-26 mg oral tablet)1 tab(s) by mouth two (2) times a day. Refills: 0. Follow Up Follow Up with CANDE FLORES MD When 08/06/2023 02:15 PM EDT Where: [address] [facility] [address] [facility] [place] [address]- Follow Up with ARDEN CLARK MD When Within 5 to 7 days Where: [address] [facility] [place] [address]- [phone] Follow Up Appointments No qualifying data available. Follow Up Labs/Studies Discharge Labs No Follow-up Labs Discharge Studies No Follow-up Studies Discharge Diet No qualifying data available. Discharge Activity No qualifying data available. Readmission Risk/Palliative Score LACE Score: 4 (07/11/23 10:49:00) Palliative Total Score: 0 (07/11/23 10:49:00) Digitally Signed by EM MARTINEZ MD on 07/13/2023 04:43 PM [id number] Discharge summary Date of Service 07/13/23 Discharge Diagnosis Ischemic Cardiomyopathy, CAD, HFrEF Hospital Course 37-year-old gentleman who was admitted to CCU for evaluation and management of new onset heart failure/hypertensive urgency. Patient was started on heparin by weight due to concern for unstable angina/NSTEMI in the ER. CT angiogram of the chest was negative for PE (done initially due to D-dimer being 233) but revealed mildly enlarged mediastinal/hilar lymph nodes. Patient was loaded with aspirin and was sent to [facility] for further management. His TTE revealed reduced LVEF 30-35% and his urine toxicology revealed methamphetamine use. He underwent [facility] 07/11/23 which revealed 95% stenosis of RCA which was stented and he was placed on DAPT. His HFrEF was treated with IV lasix 40mg BID, he was started on GDMT which isto be optimized on an outpatient basis. Of note, when stressing the urgency and importance of following up with cardiology outpatient and maintaining pharmacological adherence, patient said I don't see doctors or take meds, call my mom. We relayed this information to the patient's mother, Eleanor Lopez at [phone]. Allergies No Known Medication Allergies Procedures [facility] 07/11/23 Consults No qualifying data available. Objective Vitals and Measurements T: 36.9 C (Oral) TMIN: 36.6 C (Oral) TMAX: 36.9 C (Oral) HR: 83(Monitored) RR: 18 BP: 149/84 SpO2: 95% Weight Dosing Weight: 153.5 kg (07/11/23) General Appearance: NAD Head: NCAT EENT: no gross abnormalities Neck: no JVD appreciated Cardiac: NS1S2 Lungs: CTAB Abdomen: soft, NT/ND Musculoskeletal: ROM wnl Extremities: no pitting edema Neurological: no focal deficits Skin: warm, dry Psychiatric: normal mentation Code Status Code Status - Ordered -- 07/11/23 3:49:00 EDT, Full Code, Constant Order Admission Date 07/11/23 Discharge Date 07/13/23 Medications New Prescription aspirin (aspirin 81 mg oral tablet, chewable)1 tab(s) by mouth once a day. Refills: 0. atorvastatin (atorvastatin 40 mg oral tablet)1 tab(s) by mouth once a day. Refills: 0. carvedilol (Coreg 6.25 mg oral tablet)1 tab(s) by mouth twice daily with meals. Refills: 0. furosemide (Lasix 40 mg oral tablet)1 tab(s) by mouth once a day. Refills: 0. prasugrel (prasugrel 10 mg oral tablet)1 tab(s) by mouth once a day. Refills: 0. sacubitril-valsartan (Entresto 24 mg-26 mg oral tablet)1 tab(s) by mouth two (2) times a day. Refills: 0. Follow Up Follow Up with CANDE FLORES MD When 08/06/2023 02:15 PM EDT Where: [address] [facility] [address] [place] [address]- Follow Up with ARDEN CLARK MD When Within 5 to 7 days Where: [address] [facility] [address] [facility] [place] [address]- [phone] Follow Up Appointments No qualifying data available. Follow Up Labs/Studies Discharge Labs No Follow-up Labs Discharge Studies No Follow-up Studies Discharge Diet No qualifying data available. Discharge Activity No qualifying data available. Readmission Risk/Palliative Score LACE Score: 4 (07/11/23 10:49:00) Palliative Total Score: 0 (07/11/23 10:49:00) Digitally Signed by EM MARTINEZ MD on 07/13/2023 04:43 PM [id number] Cardiology Progress note Date of Service 07/12/23 Subjective Complains of panic attacks at night, denies active chest pain or dyspnea Objective Vitals and Measurements HR: 98(Monitored) RR: 20 BP: 138/87 SpO2: 97% Intake and Output 7AM Yesterday to 7AM Today Intake and Output (Last 24 hours) Intake Administration Information 32.51 Oral Intake 200.00 Output Urine Voided 450.00 Urine Count 1.00 Total Summary Total Intake 232.51 Total Output 450.00 Fluid Balance -217.49 Physical Exam General Appearance: NAD Head: NCAT EENT: no gross abnormalities Neck: no JVD appreciated Cardiac: NS1S2 Lungs: CTAB Abdomen: soft, NT/ND Musculoskeletal: ROM wnl Extremities: pitting edema b/l LE Neurological: no focal deficits Skin: warm, dry Psychiatric: normal mentation Weight Dosing Weight: 153.5 kg (07/11/23) Medications Medications (24) Active Scheduled: (7) aspirin 81 mg Chewable 81 mg 1 tab(s), Oral, qDay atorvastatin 40 mg tablet 40 mg 1 tab(s), Oral, qDay furosemide 40 mg/4 mL vial 40 mg 4 mL, IV Push, qDay metoprolol succinate 25 mg ER tablet 12.5 mg 0.5 tab(s), Oral, qDay No metformin for 48 hrs post contrast 1 EA, Miscellaneous, Unscheduled prasugrel 10 mg tablet 10 mg 1 tab(s), Oral, qDay sacubitril-valsartan 24-26 mg oral tablet 1 tab(s), Oral, BID Continuous: (1) heparin 25,000 unit(s) + Dextrose 5% Premix Diluent 250 mL 250 mL, Intravenous, 10 mL/hr PRN: (16) acetaminophen 325 mg Tablet 650 mg 2 tab(s), Oral, q6hr albuterol - ipratropium 2.5 mg-0.5 mg/3 mL Inhal Doreen UD 3 mL, Inhalation, q4hRT docusate-senna (Senokot S) 50 mg-8.6 mg Tablet 1 tab(s), Oral, BID heparin 5,000 units/mL (1 mL) vial 4,000 unit(s) 0.8 mL, IV Push, q6h LORAZEPam 1 mg Tablet 1 mg 1 tab(s), Oral, qHS magnesium sulfate 4 gram(s)/100mL PMX 4 g 100 mL, IV Piggyback, AsDirected magnesium sulfate 50% (500mg/mL) 6 g 12 mL, IV Piggyback, AsDirected magnesium sulfate PMX 2 g 50 mL, IV Piggyback, AsDirected melatonin 3 mg tablet 3 mg 1 tab(s), Oral, qHS nitroglycerin 0.4 mg Tablet (25/btl) 0.4 mg 1 tab(s), Sublingual, q5min oxycodone 5 mg tablet (immediate release) 5 mg 1 tab(s), Oral, q6hr polyethylene glycol 3350 - UD packet 17 gram(s) 15 mL, Oral, BID potassium chloride (PMX) 20 mEq/100 mL 20 mEq 100 mL, IV Piggyback, AsDirected potassium chloride 20 mEq ER tablet 20 mEq 1 tab(s), Oral, AsDirected potassium chloride 20 mEq ER tablet 40 mEq 2 tab(s), Oral, AsDirected potassium chloride 20 mEq ER tablet 40 mEq 2 tab(s), Oral, AsDirected Lab Results 07/12 04:15 WBC: 9.7 Hgb: 15.3 Hct: 44.9 Platelet: 239 Neutrophil %: 69.9 Glucose Level: 108 Sodium Level: 143 Potassium Level: 4.2 BUN: 17.0 Creatinine Lvl (s): 1.13 07/11 04:34 Protime: 11.8 PT International Ratio: 1.0 EKG No qualifying data available. Assessment/Plan Orders: furosemide, Start: 07/13/23 9:00:00 EDT, Dose = 40 mg, = 4 mL, IV Push, qDay, 0, 07/12/23 12:35:00 EDT LORazepam, Start: 07/12/23 15:01:00 EDT, Dose = 1 mg, = 1 tab(s), Oral, qHS, PRN, as needed for anxiety, 0, 07/12/23 15:01:00 EDT sacubitril-valsartan, Start: 07/12/23 12:33:00 EDT, Dose = 1 tab(s), Tab, Oral, BID, 07/12/23 12:33:00 EDT Ischemic Cardiomyopathy CAD s/p PCI with RODOLFO Hypertensive emergency-resolved Obesity (BMI-39.1) ?CKD stage IIIb (no baseline creatinine available) Ongoing methamphetamine use Ongoing tobacco use (10 pack years, 0.5 pack a day) Incidentally detected mediastinal/hilar lymphadenopathy, pending further work-up HFrEF ACC/AHA Stage C -2D TTE with reduced LV systolic function with EF 30-35% -Cont. IV Lasix 40mg BID, appears to be clinically hypervolemic; I&Os inaccurate -Initiate GDMT with entresto low dose, titrate as hemodynamics tolerate -Cont. toprolol -[facility] 07/11 revealed CAD with 95% RCA stenosis s/p PCI RODOLFO - Continue DAPT therapy with Effient and high intensity statin therapy -HBW given mild troponin leak to cover for possible NSTEMI. -IV Lasix 40 mg twice daily for diuresis. Hydralazine 5 mg p.o. x1 for afterload reduction. -Renal artery Doppler, renin and aldosterone levels, urine protein creatinine ratio to rule out secondary causes of HTN. -TUSHAR/serum LENA levels/LDH to screen for autoimmune/malignant (lymphoma) because of mediastinal lymphadenopathy. Pulmonology referral as outpatient for further work-up. Digitally Signed by EM MARTINEZ MD on 07/12/2023 03:22 PM [id number] History and physical note Date of Service 07/11/23 Chief Complaint SOB on exertion x 1 month, chest pain on exertion x 12 hours History of Present Illness Patient is a 37-year-old gentleman who is being admitted to CCU for evaluation and management of new onset heart failure/hypertensive urgency. PMH:-Mentioned under assessment/plan section on the right-hand side Patient lives with his grandmother in [place] [facility] [place] and is independent for all his ADLs with good effort tolerance such that he can climb up to 2-3 flights of stairs without any significant shortness of breath. He had been diagnosed with HTN in 2017 and had been on Norvasc till 2019 when he had discontinued medication following significant weight loss and improvement in blood pressures. Lisinoprilhad been tried initially for HTN (back in 2017) and per patient this had resulted in SHARON due to which this had been discontinued. Over the past 1 month, patient has been tolerating progressive shortness of breath on exertion/orthopnea along with pedal edema in the past week. On 07/10/2023, patient had experienced chest pressure/tightness in the retrosternal region when he was walking around [facility] with symptoms lasting for upto an hour (with spontaneous resolution eventually) due to which she decided to come into the ER for further evaluation at [facility]. Patient was started on heparin by weight due to concern for unstable angina in the ER. CT angiogram of the chest was negative for PE (done initially due to D-dimer being 233) but revealed mildly enlarged mediastinal/hilar lymph nodes. Patient was loaded with aspirin and was sent to [facility] for further management. Review of Systems CONSTITUTIONAL: Patient denies fevers, chills, sweats. EYES: Patient denies any visual symptoms. EARS, NOSE, AND THROAT: No difficulties with hearing. No symptoms of rhinitis or sore throat. CARDIOVASCULAR: Mentioned above RESPIRATORY: No wheezing or cough GI: No nausea, vomiting, diarrhea, constipation, abdominal pain, hematochezia or melena. : No urinary hesitancy or dribbling. No nocturia or urinary frequency. No abnormal urethral discharge. MUSCULOSKELETAL: No myalgias or arthralgias. NEUROLOGIC: No chronic headaches, no seizures. Patient denies new onset numbness, tingling or weakness. DERMATOLOGIC: Patient denies any new rashes or skin changes. Physical Exam Vitals and Measurements T: 36.3 C (Oral) HR: 96(Monitored) RR: 26 BP: 164/108 SpO2: 98% HT: 198.1 cm WT: 153.5 kg BMI: 39.11 Weight Dosing Weight: 153.5 kg (07/11/23) GENERAL APPEARANCE: Well built, in no acute distress. SKIN: No clinically significant lesions found. LYMPHATICS: No cervical or axillary adenopathy is noted. EXTREMITIES: No cyanosis/clubbing. Grade I Pedal edema noted bilaterally. HEENT: Normocephalic and atraumatic. No scleral icterus. Pupils are equal, round, and reactive to light and accommodation. No conjunctival injection is noted. Oropharynx is clear. JVD is elevated 4 cm above the clavicle when measured in the 45 degree reclining position NECK: Supple. Trachea is midline. No lymphadenopathy or tenderness. CHEST: Symmetric. Nontender to palpation. LUNGS: Air entry is diminished bilaterally. Bibasilar crackles are noted HEART: Regular rate and rhythm with normal S1 and S2. S3 heard. ABDOMEN: Soft. No tenderness on palpation. No organomegaly. Bowel sounds are present. No CVA tenderness. NEUROLOGIC: A&O x 3. Moving all 4 extremities. Lab Results 07/11 04:34 Protime: 11.8 PT International Ratio: 1.0 Imaging Results and Diagnostics (07/11/2023 00:[address] Angiography Chest w/ Contrast) IMPRESSION: No pulmonary embolism. Mediastinum: There is mild enlargement of mediastinal and hilar lymph nodes. Right paratracheal lymph node is 1.5 cm. Subcarinal lymph node on image 98 is 2.1 cm. There are bilateral hilar lymph nodes that measure 1.5 cm. The heart is mildly enlarged in a generalized manner. There is no pericardial fluid. Thoracic aorta is nonaneurysmal. Mildly enlarged mediastinal and hilar lymph nodes. This may be due to sarcoid, lymphoma, or other neoplasm. Follow-up is recommended. Mild cardiomegaly. Small cluster of tree-in-bud nodules in the right lower lobe may be infectious or inflammatory. Assessment/Plan 1. New onset heart failure, pending further evaluation 2. Hypertensive urgency 3. Obesity (BMI-39.1) 4. ?CKD stage IIIb (no baseline creatinine available) 5. Ongoing methamphetamine use 6. Ongoing tobacco use (10 pack years, 0.5 pack a day) 7. Incidentally detected mediastinal/hilar lymphadenopathy, pending further work-up -Aspirin/atorvastatin till completion of ischemic work-up. LHC+RHC given new onset HF. -HBW given mild troponin leak to cover for possible NSTEMI. -IV Lasix 40 mg twice daily for diuresis. Hydralazine 5 mg p.o. x1 for afterload reduction. -ARB trial post heart cath with eventual transition to ARNI if EF reduced on TTE. Low-dose Toprol-XL (12.5 mg daily) scheduled later today given new onset heart failure. Uptitration to be done after other GDMT meds have been optimized. -Renal artery Doppler, renin and aldosterone levels, urine protein creatinine ratio to rule out secondary causes of HTN. -TUSHAR/serum LENA levels/LDH to screen for autoimmune/malignant (lymphoma) because of mediastinal lymphadenopathy. Pulmonology referral as outpatient for further work-up. -Full CODE STATUS. Problem List/Past Medical History Ongoing No qualifying data Historical No qualifying data Procedure/Surgical History No qualifying data available. Medications No qualifying data available Allergies No Known Medication Allergies Social History Alcohol Use: denies., 07/10/2023 Nutrition/Health Type of diet: Regular. Appetite Good., 07/10/2023 Substance Abuse Use: Past. Type: Methamphetamines., 07/10/2023 Tobacco Nicotine Use: 5-9 cigarettes (between 1/4 to 1/2 pack)/day in last 30 days. Type: Cigarettes., 07/10/2023 Family History DM, HTN in mother Immunizations No qualifying data available. Code Status Code Status - Ordered -- 07/11/23 3:49:00 EDT, Full Code, Constant Order Digitally Signed by FLAKO FUNES MD on 07/11/2023 08:17 AM [id number] Cardiology Progress note Date of Service 07/12/23 Subjective Complains of panic attacks at night, denies active chest pain or dyspnea Objective Vitals and Measurements HR: 98(Monitored) RR: 20 BP: 138/87 SpO2: 97% Intake and Output 7AM Yesterday to 7AM Today Intake and Output (Last 24 hours) Intake Administration Information 32.51 Oral Intake 200.00 Output Urine Voided 450.00 Urine Count 1.00 Total Summary Total Intake 232.51 Total Output 450.00 Fluid Balance -217.49 Physical Exam General Appearance: NAD Head: NCAT EENT: no gross abnormalities Neck: no JVD appreciated Cardiac: NS1S2 Lungs: CTAB Abdomen: soft, NT/ND Musculoskeletal: ROM wnl Extremities: pitting edema b/l LE Neurological: no focal deficits Skin: warm, dry Psychiatric: normal mentation Weight Dosing Weight: 153.5 kg (07/11/23) Medications Medications (24) Active Scheduled: (7) aspirin 81 mg Chewable 81 mg 1 tab(s), Oral, qDay atorvastatin 40 mg tablet 40 mg 1 tab(s), Oral, qDay furosemide 40 mg/4 mL vial 40 mg 4 mL, IV Push, qDay metoprolol succinate 25 mg ER tablet 12.5 mg 0.5 tab(s), Oral, qDay No metformin for 48 hrs post contrast 1 EA, Miscellaneous, Unscheduled prasugrel 10 mg tablet 10 mg 1 tab(s), Oral, qDay sacubitril-valsartan 24-26 mg oral tablet 1 tab(s), Oral, BID Continuous: (1) heparin 25,000 unit(s) + Dextrose 5% Premix Diluent 250 mL 250 mL, Intravenous, 10 mL/hr PRN: (16) acetaminophen 325 mg Tablet 650 mg 2 tab(s), Oral, q6hr albuterol - ipratropium 2.5 mg-0.5 mg/3 mL Inhal Doreen UD 3 mL, Inhalation, q4hRT docusate-senna (Senokot S) 50 mg-8.6 mg Tablet 1 tab(s), Oral, BID heparin 5,000 units/mL (1 mL) vial 4,000 unit(s) 0.8 mL, IV Push, q6h LORAZEPam 1 mg Tablet 1 mg 1 tab(s), Oral, qHS magnesium sulfate 4 gram(s)/100mL PMX 4 g 100 mL, IV Piggyback, AsDirected magnesium sulfate 50% (500mg/mL) 6 g 12 mL, IV Piggyback, AsDirected magnesium sulfate PMX 2 g 50 mL, IV Piggyback, AsDirected melatonin 3 mg tablet 3 mg 1 tab(s), Oral, qHS nitroglycerin 0.4 mg Tablet (25/btl) 0.4 mg 1 tab(s), Sublingual, q5min oxycodone 5 mg tablet (immediate release) 5 mg 1 tab(s), Oral, q6hr polyethylene glycol 3350 - UD packet 17 gram(s) 15 mL, Oral, BID potassium chloride (PMX) 20 mEq/100 mL 20 mEq 100 mL, IV Piggyback, AsDirected potassium chloride 20 mEq ER tablet 20 mEq 1 tab(s), Oral, AsDirected potassium chloride 20 mEq ER tablet 40 mEq 2 tab(s), Oral, AsDirected potassium chloride 20 mEq ER tablet 40 mEq 2 tab(s), Oral, AsDirected Lab Results 07/12 04:15 WBC: 9.7 Hgb: 15.3 Hct: 44.9 Platelet: 239 Neutrophil %: 69.9 Glucose Level: 108 Sodium Level: 143 Potassium Level: 4.2 BUN: 17.0 Creatinine Lvl (s): 1.13 07/11 04:34 Protime: 11.8 PT International Ratio: 1.0 EKG No qualifying data available. Assessment/Plan Orders: furosemide, Start: 07/13/23 9:00:00 EDT, Dose = 40 mg, = 4 mL, IV Push, qDay, 0, 07/12/23 12:35:00 EDT LORazepam, Start: 07/12/23 15:01:00 EDT, Dose = 1 mg, = 1 tab(s), Oral, qHS, PRN, as needed for anxiety, 0, 07/12/23 15:01:00 EDT sacubitril-valsartan, Start: 07/12/23 12:33:00 EDT, Dose = 1 tab(s), Tab, Oral, BID, 07/12/23 12:33:00 EDT Ischemic Cardiomyopathy CAD s/p PCI with RODOLFO Hypertensive emergency-resolved Obesity (BMI-39.1) ?CKD stage IIIb (no baseline creatinine available) Ongoing methamphetamine use Ongoing tobacco use (10 pack years, 0.5 pack a day) Incidentally detected mediastinal/hilar lymphadenopathy, pending further work-up HFrEF ACC/AHA Stage C -2D TTE with reduced LV systolic function with EF 30-35% -Cont. IV Lasix 40mg BID, appears to be clinically hypervolemic; I&Os inaccurate -Initiate GDMT with entresto low dose, titrate as hemodynamics tolerate -Cont. toprolol -[facility] 07/11 revealed CAD with 95% RCA stenosis s/p PCI RODOLFO - Continue DAPT therapy with Effient and high intensity statin therapy -HBW given mild troponin leak to cover for possible NSTEMI. -IV Lasix 40 mg twice daily for diuresis. Hydralazine 5 mg p.o. x1 for afterload reduction. -Renal artery Doppler, renin and aldosterone levels, urine protein creatinine ratio to rule out secondary causes of HTN. -TUSHAR/serum LENA levels/LDH to screen for autoimmune/malignant (lymphoma) because of mediastinal lymphadenopathy. Pulmonology referral as outpatient for further work-up. Digitally Signed by EM MARTINEZ MD on 07/12/2023 03:22 PM [id number]* Exam Date Time Procedure Performing Provider Status 07/12/23 9:00 AM VL Renal Artery US/D oppler Complete-CV Auth (Verified) [facility] 09-01-2023 Note* Exam Date Time Procedure Performing Provider Status 07/11/23 3:45 PM Cardiac Catheterization -CV Auth (Verified) [facility] 09-01-2023 Evaluation + Plan noteExtracted from: Title:History and Physical Author:FLAKO FUNES MD Date:07/11/23 1. New onset heart failure, pending further evaluation 2. Hypertensive urgency 3. Obesity (BMI-39.1) 4. ?CKD stage IIIb (no baseline creatinine available) 5. Ongoing methamphetamine use 6. Ongoing tobacco use (10 pack years, 0.5 pack a day) 7. Incidentally detected mediastinal/hilar lymphadenopathy, pending further work-up -Aspirin/atorvastatin till completion of ischemic work-up. LHC+RHC given new onset HF. -HBW given mild troponin leak to cover for possible NSTEMI. -IV Lasix 40 mg twice daily for diuresis. Hydralazine 5 mg p.o. x1 for afterload reduction. -ARB trial post heart cath with eventual transition to ARNI if EF reduced on TTE. Low-dose Toprol-XL (12.5 mg daily) scheduled later today given new onset heart failure. Uptitration to be done after other GDMT meds have been optimized. -Renal artery Doppler, renin and aldosterone levels, urine protein creatinine ratio to rule out secondary causes of HTN. -TUSHAR/serum LENA levels/LDH to screen for autoimmune/malignant (lymphoma) because of mediastinal lymphadenopathy. Pulmonology referral as outpatient for further work-up. -Full CODE STATUS. Addendum by PHU CLARK MD on July 12, 2023 20:21:21 EDT I have personally seen, examined, and evaluated the patient on the encounter date. I have reviewed the fellow s documentation and agree with the fellow s findings and plan as documented, unless otherwise stated. Future Appointments Appointment Date:08/06/2023 02:15:00 PM Scheduled Provider: Location:[facility] Appointment Type:CV OV Diagnostic Tests Pending * Aldosterone 07/11/23 * Renin, Plasma 07/11/23 [facility] 09-01-2023 Note* Exam Date Time Procedure Performing Provider Status 07/11/23 11:20 AM Echocardiogram, Adult - CV Auth (Verified) [facility] 09-01-2023 NoteSINUS RHYTHM PROLONGED AZ INTERVAL LAE, CONSIDER BIATRIAL ENLARGEMENT PROLONGED QT INTERVAL Electronic Signature: SWATI MARTINS MD 07/12/2023 15:26:12[facility] 09-01-2023 History and physical note Date of Service 07/11/23 Chief Complaint SOB on exertion x 1 month, chest pain on exertion x 12 hours History of Present Illness Patient is a 37-year-old gentleman who is being admitted to CCU for evaluation and management of new onset heart failure/hypertensive urgency. PMH:-Mentioned under assessment/plan section on the right-hand side Patient lives with his grandmother in [place] and is independent for all his ADLs with good effort tolerance such that he can climb up to 2-3 flights of stairs without any significant shortness of breath. He had been diagnosed with HTN in 2017 and had been on Norvasc till 2019 when he had discontinued medication following significant weight loss and improvement in blood pressures. Lisinoprilhad been tried initially for HTN (back in 2017) and per patient this had resulted in SHARON due to which this had been discontinued. Over the past 1 month, patient has been tolerating progressive shortness of breath on exertion/orthopnea along with pedal edema in the past week. On 07/10/2023, patient had experienced chest pressure/tightness in the retrosternal region when he was walking around [facility] with symptoms lasting for upto an hour (with spontaneous resolution eventually) due to which she decided to come into the ER for further evaluation at [facility]. Patient was started on heparin by weight due to concern for unstable angina in the ER. CT angiogram of the chest was negative for PE (done initially due to D-dimer being 233) but revealed mildly enlarged mediastinal/hilar lymph nodes. Patient was loaded with aspirin and was sent to [facility] for further management. Review of Systems CONSTITUTIONAL: Patient denies fevers, chills, sweats. EYES: Patient denies any visual symptoms. EARS, NOSE, AND THROAT: No difficulties with hearing. No symptoms of rhinitis or sore throat. CARDIOVASCULAR: Mentioned above RESPIRATORY: No wheezing or cough GI: No nausea, vomiting, diarrhea, constipation, abdominal pain, hematochezia or melena. : No urinary hesitancy or dribbling. No nocturia or urinary frequency. No abnormal urethral discharge. MUSCULOSKELETAL: No myalgias or arthralgias. NEUROLOGIC: No chronic headaches, no seizures. Patient denies new onset numbness, tingling or weakness. DERMATOLOGIC: Patient denies any new rashes or skin changes. Physical Exam Vitals and Measurements T: 36.3 C (Oral) HR: 96(Monitored) RR: 26 BP: 164/108 SpO2: 98% HT: 198.1 cm WT: 153.5 kg BMI: 39.11 Weight Dosing Weight: 153.5 kg (07/11/23) GENERAL APPEARANCE: Well built, in no acute distress. SKIN: No clinically significant lesions found. LYMPHATICS: No cervical or axillary adenopathy is noted. EXTREMITIES: No cyanosis/clubbing. Grade I Pedal edema noted bilaterally. HEENT: Normocephalic and atraumatic. No scleral icterus. Pupils are equal, round, and reactive to light and accommodation. No conjunctival injection is noted. Oropharynx is clear. JVD is elevated 4 cm above the clavicle when measured in the 45 degree reclining position NECK: Supple. Trachea is midline. No lymphadenopathy or tenderness. CHEST: Symmetric. Nontender to palpation. LUNGS: Air entry is diminished bilaterally. Bibasilar crackles are noted HEART: Regular rate and rhythm with normal S1 and S2. S3 heard. ABDOMEN: Soft. No tenderness on palpation. No organomegaly. Bowel sounds are present. No CVA tenderness. NEUROLOGIC: A&O x 3. Moving all 4 extremities. Lab Results 07/11 04:34 Protime: 11.8 PT International Ratio: 1.0 Imaging Results and Diagnostics (07/11/2023 00:[address] Angiography Chest w/ Contrast) IMPRESSION: No pulmonary embolism. Mediastinum: There is mild enlargement of mediastinal and hilar lymph nodes. Right paratracheal lymph node is 1.5 cm. Subcarinal lymph node on image 98 is 2.1 cm. There are bilateral hilar lymph nodes that measure 1.5 cm. The heart is mildly enlarged in a generalized manner. There is no pericardial fluid. Thoracic aorta is nonaneurysmal. Mildly enlarged mediastinal and hilar lymph nodes. This may be due to sarcoid, lymphoma, or other neoplasm. Follow-up is recommended. Mild cardiomegaly. Small cluster of tree-in-bud nodules in the right lower lobe may be infectious or inflammatory. Assessment/Plan 1. New onset heart failure, pending further evaluation 2. Hypertensive urgency 3. Obesity (BMI-39.1) 4. ?CKD stage IIIb (no baseline creatinine available) 5. Ongoing methamphetamine use 6. Ongoing tobacco use (10 pack years, 0.5 pack a day) 7. Incidentally detected mediastinal/hilar lymphadenopathy, pending further work-up -Aspirin/atorvastatin till completion of ischemic work-up. LHC+RHC given new onset HF. -HBW given mild troponin leak to cover for possible NSTEMI. -IV Lasix 40 mg twice daily for diuresis. Hydralazine 5 mg p.o. x1 for afterload reduction. -ARB trial post heart cath with eventual transition to ARNI if EF reduced on TTE. Low-dose Toprol-XL (12.5 mg daily) scheduled later today given new onset heart failure. Uptitration to be done after other GDMT meds have been optimized. -Renal artery Doppler, renin and aldosterone levels, urine protein creatinine ratio to rule out secondary causes of HTN. -TUSHAR/serum LENA levels/LDH to screen for autoimmune/malignant (lymphoma) because of mediastinal lymphadenopathy. Pulmonology referral as outpatient for further work-up. -Full CODE STATUS. Problem List/Past Medical History Ongoing No qualifying data Historical No qualifying data Procedure/Surgical History No qualifying data available. Medications No qualifying data available Allergies No Known Medication Allergies Social History Alcohol Use: denies., 07/10/2023 Nutrition/Health Type of diet: Regular. Appetite Good., 07/10/2023 Substance Abuse Use: Past. Type: Methamphetamines., 07/10/2023 Tobacco Nicotine Use: 5-9 cigarettes (between 1/4 to 1/2 pack)/day in last 30 days. Type: Cigarettes., 07/10/2023 Family History DM, HTN in mother Immunizations No qualifying data available. Code Status Code Status - Ordered -- 07/11/23 3:49:00 EDT, Full Code, Constant Order Digitally Signed by FLAKO FUNES MD on 07/11/2023 08:17 AM [id number] NoteSINUS RHYTHM PROBABLE LEFT ATRIAL ENLARGEMENT PROLONGED QT INTERVAL NONSPECIFIC T-WAVE ABNORMALITY Electronic Signature: SWATI MARTINS MD 07/11/2023 09:56:23[facility] 09-01-2023 Note ORIGINAL EXAMINATION: CTA OF THE CHEST 07/11/2023 12:17 am TECHNIQUE: CTA of the chest was performed after the administration of intravenous contrast. Multiplanar reformatted images are provided for review. MIP images are provided for review. Automated exposure control, iterative reconstruction, and/or weight based adjustment of the mA/kV was utilized to reduce the radiation dose to as low as reasonably achievable. COMPARISON: Chest x-ray 07/10/2023 HISTORY: ORDERING SYSTEM PROVIDED HISTORY: Reason for Exam: Elev D-dimer, BNP, Trop, and HR. HTN chest pain; suspect PE FINDINGS: Pulmonary Arteries: Pulmonary arteries are adequately opacified for evaluation. No evidence of intraluminal filling defect to suggest pulmonary embolism. Main pulmonary artery is normal in caliber. Mediastinum: There is mild enlargement of mediastinal and hilar lymph nodes. Right paratracheal lymph node is 1.5 cm. Subcarinal lymph node on image 98 is 2.1 cm. There are bilateral hilar lymph nodes that measure 1.5 cm. The heart is mildly enlarged in a generalized manner. There is no pericardial fluid. Thoracic aorta is nonaneurysmal. Lungs/pleura: There is no airspace disease. There is a tree in bud type infiltrate with small nodules that range up to 5 mm in diameter localized laterally in the right lower lobe. (Series 601 image 86. No pleural fluid or pneumothorax is present. Upper Abdomen: Limited images of the upper abdomen are unremarkable. The spleen is not enlarged. Soft Tissues/Bones: No acute bone or soft tissue abnormality. IMPRESSION: No pulmonary embolism. Mildly enlarged mediastinal and hilar lymph nodes. This may be due to sarcoid, lymphoma, or other neoplasm. Follow-up is recommended. Mild cardiomegaly. Small cluster of tree-in-bud nodules in the right lower lobe may be infectious or inflammatory. Interpreted by: Dylan Myers MD Preliminary Report By: Dylan Myers MD Electronically signed By Dylan Myers MD Dictated Date: 07/11/2023 12:19:43 AM Prelim Date: 07/11/2023 12:27:28 AM Sign Date: 07/11/2023 12:27:28 AM Ordering Provider: [facility]08-31-2023 Note ORIGINAL EXAMINATION: ONE XRAY VIEW OF THE CHEST 07/10/2023 10:57 pm COMPARISON: 08/22/2019 HISTORY: ORDERING SYSTEM PROVIDED HISTORY: Reason for Exam: patient not feeling well a week ago, today walking around [employer] and had SOB and CP chest pain FINDINGS: Mild cardiomegaly has developed. Lungs are symmetrically pneumatized and free of airspace disease, effusion or pneumothorax. Pulmonary vascular pattern is within normal range. Skeletal elements are intact. IMPRESSION: 1. Developing cardiomegaly without active airspace disease. Interpreted by: Ayush Fam DO Preliminary Report By: Ayush Fam DO Electronically signed By Ayush Fam DO Dictated Date: 07/10/2023 11:00:15 PM Prelim Date: 07/10/2023 11:01:34 PM Sign Date: 07/10/2023 11:01:34 PM [facility] NoteSinus tachycardia Left atrial enlargement Abnormal R-wave progression, late transition Prolonged QT interval SEE DICTATION Electronic Signature: EDILMA RUBY MD 07/10/2023 22:25:20[facility] 07-31-20[facility] History of Present illness Narrative* Luis Walsh MD - 06/09/2023 8:00 AM EDT Subjective Patient ID: Pancho Lopez is a 37 y.o. male who presents for rectal bleed with bowel movements. Over the past 6 weeks he has had painless rectal bleeding after having a bowel movement. He has no pain or fever. His brother was just diagnosed with colon polyps. Objective BP 120/76 (BP Location: Left arm, Patient Position: Sitting, BP Cuff Size: Adult) Pulse 77 Temp36.7 C (98 F) (Skin) Wt 95.3 kg (210 lb) SpO2 99% BMI 29.92 kg/m Physical Exam Abdominal: General: Abdomen is flat. There is no distension. Palpations: Abdomen is soft. There is no mass. Assessment/Plan Problem List Items Addressed This Visit None Visit Diagnoses Rectal bleeding - Primary Relevant Orders Referral to Gastroenterology I am referring him to gastroenterology for likely colonoscopy. documented in this [facility] Work Phone: [phone] 439-779907-31-2023 Instructions* Patient Instructions* Luis Walsh MD - 06/09/2023 8:00 AM EDT You should be contacted by central scheduling about getting hooked up with Dr. Mel Esparza. He can then advise on next steps. [facility] + Plan note Future Appointments Appointment Date:07/12/2023 07:00:00 AM Scheduled Provider: Location:[facility] Appointment Type:VL - Renal Artery US/Doppler Complete Appointment Date:08/06/2023 02:15:00 PM Scheduled Provider: Location:[facility] Appointment Type:CV OV [facility] Evaluation + Plan note Future Appointments Appointment Date:09/24/2023 10:30:00 AM Scheduled Provider: Location:[facility] Appointment Type:CV OV Future Scheduled Tests Laboratory* Basic Metabolic Panel 07/23/23 * Basic Metabolic Panel 07/30/23 * Basic Metabolic Panel 08/06/23 * Basic Metabolic Panel 08/13/23 * Basic Metabolic Panel 08/20/23 * Basic Metabolic Panel 09/03/23 * Basic Metabolic Panel 09/10/23 * Basic Metabolic Panel 09/17/23 * Basic Metabolic Panel 09/24/23 * Basic Metabolic Panel 10/01/23 * Basic Metabolic Panel 10/08/23 * Basic Metabolic Panel 10/15/23 * Basic Metabolic Panel 10/22/23 * Basic Metabolic Panel 10/29/23 * Basic Metabolic Panel 11/05/23 * Basic Metabolic Panel 11/12/23 * Basic Metabolic Panel 11/19/23 * Basic Metabolic Panel 11/26/23 * Basic Metabolic Panel 12/03/23 * Basic Metabolic Panel 12/10/23 * Basic Metabolic Panel 12/17/23 [facility] Evaluation + Plan note Future Appointments Appointment Date:09/24/2023 10:30:00 AM Scheduled Provider: Location:[facility] Appointment Type:CV OV Future Scheduled Tests Laboratory* Basic Metabolic Panel 07/23/23 * Basic Metabolic Panel 07/30/23 * Basic Metabolic Panel 08/06/23 * Basic Metabolic Panel 08/13/23 * Basic Metabolic Panel 08/20/23 * Basic Metabolic Panel 09/03/23 * Basic Metabolic Panel 09/10/23 * Basic Metabolic Panel 09/17/23 * Basic Metabolic Panel 10/01/23 * Basic Metabolic Panel 10/08/23 * Basic Metabolic Panel 10/15/23 * Basic Metabolic Panel 10/22/23 * Basic Metabolic Panel 10/29/23 * Basic Metabolic Panel 11/05/23 * Basic Metabolic Panel 11/12/23 * Basic Metabolic Panel 11/19/23 * Basic Metabolic Panel 11/26/23 * Basic Metabolic Panel 12/03/23 * Basic Metabolic Panel 12/10/23 * Basic Metabolic Panel 12/17/23 [facility] Evaluation + Plan note Future Appointments Appointment Date:12/05/2023 10:00:00 AM Scheduled Provider: Location:[facility] Appointment Type:CV OV Future Scheduled Tests Laboratory* Basic Metabolic Panel 07/23/23 * Basic Metabolic Panel 07/30/23 * Basic Metabolic Panel 08/06/23 * Basic Metabolic Panel 08/13/23 * Basic Metabolic Panel 08/20/23 * Basic Metabolic Panel 09/03/23 * Basic Metabolic Panel 09/10/23 * Basic Metabolic Panel 09/17/23 * Basic Metabolic Panel 10/01/23 * Basic Metabolic Panel 10/08/23 * Basic Metabolic Panel 10/15/23 * Basic Metabolic Panel 10/22/23 * Basic Metabolic Panel 10/29/23 * Basic Metabolic Panel 11/12/23 * Basic Metabolic Panel 11/19/23 * Basic Metabolic Panel 11/26/23 * Basic Metabolic Panel 12/03/23 * Basic Metabolic Panel 12/10/23 * Basic Metabolic Panel 12/17/23 [facility] Evaluation + Plan note Future Appointments Appointment Date:03/23/2024 11:00:00 AM Scheduled Provider:MICHAEL OTOOLE DO Location:[facility] Appointment Type:PC OV Diagnostic Tests Pending * Testosterone,Free and Total 03/20/24 Future Scheduled Tests Laboratory* Basic Metabolic Panel 07/23/23 * Basic Metabolic Panel 07/30/23 * Basic Metabolic Panel 08/06/23 * Basic Metabolic Panel 08/13/23 * Basic Metabolic Panel 08/20/23 * Basic Metabolic Panel 09/03/23 * Basic Metabolic Panel 09/10/23 * Basic Metabolic Panel 09/17/23 * Basic Metabolic Panel 10/01/23 * Basic Metabolic Panel 10/08/23 * Basic Metabolic Panel 10/15/23 * Basic Metabolic Panel 10/22/23 * Basic Metabolic Panel 10/29/23 * Basic Metabolic Panel 11/12/23 * Basic Metabolic Panel 11/19/23 * Basic Metabolic Panel 11/26/23 * Basic Metabolic Panel 12/03/23 * Basic Metabolic Panel 12/10/23 * Basic Metabolic Panel 12/17/23 * HIV 1/2 Ab 02/09/24 [facility] Evaluation + Plan note Future Appointments Appointment Date:06/23/2024 01:30:00 PM Scheduled Provider:MICHAEL OTOOLE DO Location:[facility] Appointment Type:PC OV Diagnostic Tests Pending * Urine Drug Screen (AO/AM Only) 06/01/24 Future Scheduled Tests Laboratory* Testosterone,Free and Total 04/19/24 * Basic Metabolic Panel 07/23/23 * Basic Metabolic Panel 07/30/23 * Basic Metabolic Panel 08/06/23 * Basic Metabolic Panel 08/13/23 * Basic Metabolic Panel 08/20/23 * Basic Metabolic Panel 09/03/23 * Basic Metabolic Panel 09/10/23 * Basic Metabolic Panel 09/17/23 * Basic Metabolic Panel 10/01/23 * Basic Metabolic Panel 10/08/23 * Basic Metabolic Panel 10/15/23 * Basic Metabolic Panel 10/22/23 * Basic Metabolic Panel 10/29/23 * Basic Metabolic Panel 11/12/23 * Basic Metabolic Panel 11/19/23 * Basic Metabolic Panel 11/26/23 * Basic Metabolic Panel 12/03/23 * Basic Metabolic Panel 12/10/23 * Basic Metabolic Panel 12/17/23 * Complete Blood Count 04/19/24 * Complete Metabolic Panel 04/19/24 Radiology* MRI Brain w/ Contrast 04/19/24 [facility] Evaluation + Plan note Future Appointments Appointment Date:09/08/2024 02:00:00 PM Scheduled Provider:CRYSTAL CONNELLY Location:[facility] Appointment Type:CV OV Hospital Follow Up Future Scheduled Tests Laboratory* Testosterone,Free and Total 04/19/24 * Complete Blood Count 04/19/24 * Complete Metabolic Panel 04/19/24 Radiology* MRI Brain w/ Contrast 04/19/24 [facility] Evaluation + Plan note Future Appointments Appointment Date:07/15/2025 03:45:00 PM Scheduled Provider:MICHAEL OTOOLE DO Location:[facility] Appointment Type:PC OV Diagnostic Tests Pending * Testosterone,Free and Total 07/04/25 * Apolipoprotein B 07/04/25 * Lipoprotein (a) 07/04/25 Future Scheduled Tests Laboratory* Albumin/Creatinine Ratio, Random Urine 06/06/25 [facility] Evaluation + Plan note Future Appointments Appointment Date:08/12/2025 03:30:00 PM Scheduled Provider:MICHAEL OTOOLE DO Location:[facility] Appointment Type:PC OV Future Scheduled Tests Laboratory* Testosterone,Free and Total (Ref,$,5d) 07/15/25 * Luteinizing Hormone 07/15/25 * Follicle Stimulating Hormone Level 07/15/25 * Albumin/Creatinine Ratio, Random Urine 06/06/25 [facility] Evaluation note* Diagnosis Rectal bleeding- Primary Hemorrhage of rectum and anus documented [facility] Work Phone: Evaluation noteNo assessment information available [facility] Work Phone: Evaluation note* Diagnosis Routine general medical examination at a health care facility- Primary Lipid screening Screening for lipoid disorders Screening for diabetes mellitus documented in [facility] encounter [facility] Work Phone: Hospital course Narrative No data available for this section [facility] Hospital Discharge instructions No data available for this section [facility] Note* COLETTE Fleming: PERFORM Event Display: [facility] Patient Summary Authored Date: Discharge Instructions Thank you for allowing [facility] to assist you with your healthcare needs. The following is importantdischarge information regarding your hospital visit. What to Do Next Instructions from Your Care Team No qualifying data available. Post Acute Orders No qualifying data available. You Need to Schedule the Following Appointments Follow Up with PAVEL PEREZ When:Within 3-5 days Where:[address] [facility] [address] [facility] [place] [address]- [phone] Business (1) Additional Information: Schedule appointment for close follow-up. Use water pill (Lasix) as prescribed. Continue all other routine medications. Return to the ED if symptoms worsen. Follow Up with MICHAEL OTOOLE When:Within 3-5 days Where:[address] [facility] [place] [address]- [phone] Business (1) Additional Information: Schedule appointment for follow-up regarding cough and shortness of breath. Do not smoke. Vaporizer at bedside. Use Tylenol or Advil for fever and discomfort as needed. Use albuterol inhaler for shortness of breath/wheezing and Tessalon for cough as prescribed. Continue all of the routine home medications. Return to the ED if symptoms worsen. Allergies No Known Medication Allergies Medications Please ask your primary doctor or pharmacist before taking any other medication not listed, including over the counter drugs, herbal medications, vitamins and or supplements as they may interact withyour home medications. What How Much When Why Instructions Last Dose New albuterol (albuterol MDI (90 mcg/ inh) CFC free inhalation aerosol) 2 puff(s) by inhalation Every 6 hours Printed Prescription New albuterol (albuterol 5 mg/ mL (0.5%) inhalation solution) 0.5 Milliliter by inhalation Every 4 hours Duration: 7 Days Printed Prescription New benzonatate (Tessalon Perles 100 mg oral capsule) 1 cap by mouth Three (3) times a day Duration: 7 Days Printed Prescription New furosemide (Lasix 40 mg oral tablet) 1 tab(s) by mouth Once a day Printed Prescription Unchanged amLODIPine (amLODIPine 10 mg oral tablet) 1 tab(s) by mouth Once a day Unchanged aspirin (aspirin 81 mg oral tablet, chewable) 1 tab(s) by mouth Once a day with a meal Unchanged atorvastatin (atorvastatin 40 mg oral tablet) 1 tab(s) by mouth Once a day Unchanged carvedilol (Coreg 6.25 mg oral tablet) 1 tab(s) by mouth Two (2) times a day Unchanged cholecalciferol (Vitamin D3 1250 mcg (50,000 intl units) oral capsule) 1 cap by mouth Every week Hypersomnia Vitamin D insufficiency restest Vit D Unchanged dapagliflozin (Farxiga 10 mg oral tablet) 1 tab(s) by mouth Once a day Unchanged empagliflozin (Jardiance 10 mg oral tablet) 1 tab(s) by mouth Once a day (in the morning) Unchanged sacubitril-valsartan (Entresto 49 mg-51 mg oral tablet) 1 tab(s) by mouth Two (2) times a day Unchanged spironolactone (Aldactone 25 mg oral tablet) 0.5 tab(s) by mouth Once a day Unchanged testosterone (testosterone 20.25 mg/ actuation (1.62%) transdermal gel) 1 pump(s) Topical Once a day (in the morning) Please take this list to your next doctor s visit. Bring all medications you take, including over the counter medications, herbals and other supplements with you to your doctor s visit. Patients and families are reminded to discard old lists and to update any records with all medication providers or retail pharmacies. Medication Leaflets albuterol inhalation (al BUE ter ol) ProAir Digihaler, ProAir RespiClick, Ventolin HFA What is the most important information I should know about albuterol inhalation? Use only as directed. Tell your doctor if you use other medicines or have other medical conditions or allergies. What is albuterol inhalation? Albuterol inhalers are used in adults and children at least 4 years old to to treat or prevent narrowing and swelling inside the lungs (bronchospasm) that may cause breathing problems. Albuterol inhalers are also used to prevent breathing problems while exercising. Albuterol inhalation solution is used to treat acute bronchospasm attacks in children at least 2 years old with asthma. Albuterol inhalation may also be used for purposes not listed in this medication guide. What should I discuss with my healthcare provider before using albuterol inhalation? You should not use this medicine if you are allergic to albuterol inhalation. Do not use albuterol inhalation powder (ProAir RespiClick or ProAir Digihaler) if you are allergic to lactose or milk proteins. Tell your doctor if you have ever had: heart problems, high blood pressure; a thyroid disorder; seizures; if you have used an MAO inhibitor in the past 14 days, such as isocarboxazid, linezolid, methylene blue injection, phenelzine, or tranylcypromine; diabetes; or low blood levels of potassium. If you are , your name may be listed on a registry to track the effects of albuterol inhalation on the baby. Tell your doctor if you are or plan to become . It is not known whether albuterol inhalation will harm an unborn baby. However, having uncontrolled asthma during may increase the risk of premature , low weight, or eclampsia (dangerously high blood pressure thatcan lead to medical problems in both mother and baby). The benefit of preventing bronchospasm may outweigh any risks to the baby. Do not allow a young child to use albuterol inhalation without help from an adult. How should I use albuterol inhalation? Follow the directions on your prescription label and read all medication guides or instruction sheets. Use the medicine exactly as directed. Do not use the medicine more often than prescribed. Your dose needs may change if you switch to a different brand, strength, or form of this medicine. Avoid medication errors by using exactly as directed on the label, or as prescribed by your doctor. The effects of albuterol inhalation last about 4 to 6 hours. To prevent exercise-induced bronchospasm, use this medicine 15 to 30 minutes before you exercise. Talk with your doctor if you need to time your dosing around any planned activities. Read and carefully follow any instructions for preparing and using the medicine for the first time and for following doses. Ask your doctor or pharmacist if you do not understand these instructions. Your dose needs may change due to surgery, illness, stress, or a recent asthma attack. Do not change your dose or stop using asthma medication without your doctor's advice. Tell your doctor if your medicine seems to stop working. Call your doctor if your symptoms do not improve, or if they get worse. Keep the cover on your inhaler closed when not in use. Store away from open flame or high heat. Do not puncture or burn an empty canister. Do not take apart an inhaler device, wash, or put any part of your inhaler in water. Follow all storage and cleaning instructions provided with your inhaler. Your pharmacist can provide more information about how to store this medicine. Get your prescription refilled before you run out of medicine completely. Always use the new inhaler device provided. Store unused albuterol solution vials in the foil pouch at room temperature away from moisture, heat and light. Call your pharmacist if the medicine looks cloudy, has changed colors or has particles in it. Albuterol inhalation solution is stable for only a certain number of days or weeks after being removed from the foil pouch. Throw away any medicine not used within that time. Talk to your pharmacist if you have any questions. What happens if I miss a dose? Use the medicine as soon as you can, but skip the missed dose if it is almost time for your next dose. Do not use two doses at one time. What happens if I overdose? Seek emergency medical attention or call the Poison Help line at . An overdose of albuterol can be fatal. Overdose symptoms may include dry mouth, tremors, chest pain, fast heartbeats, nausea, general ill feeling, seizure, feeling light-headed or fainting. What should I avoid while using albuterol inhalation? Avoid using other fast-acting rescue medications or asthma medications with albuterol inhalation unless you doctor tells you to. Avoid getting this medicine in your eyes. What are the possible side effects of albuterol inhalation? Get emergency medical help if you have signs of an allergic reaction: hives, difficult breathing, swelling of your face, lips, tongue, or throat. Albuterol inhalation may increase the risk of asthma-related or hospitalization. Use only theprescribed dose and follow all instructions for safe use. Call your doctor at once if you have: wheezing, choking, or other breathing problems after using this medicine; chest pain, fast heart rate, pounding heartbeats or fluttering in your chest; severe headache, pounding in your neck or ears; high blood sugar--increased thirst, increased urination, dry mouth, fruity breath odor; or low blood potassium--leg cramps, constipation, irregular heartbeats, fluttering in your chest, increased thirst or urination, numbness or tingling, muscle weakness or limp feeling. Common side effects may include: chest pain, fast or pounding heartbeats; pain and burning when you urinate; upset stomach, vomiting; dizziness; tremors or shaking, nervousness; headache, back pain, body aches; or cough, sore throat, sinus pain, runny or stuffy nose. This is not a complete list of side effects and others may occur. Call your doctor for medical advice about side effects. You may report side effects to FDA at 4-773-WZN-5317. What other drugs will affect albuterol inhalation? Tell your doctor about all your other medicines, especially: any other inhaled medicines or bronchodilators such as ipratropium o tiotropium; digoxin; epinephrine; a diuretic ('water pill') an antidepressant--amitriptyline, desipramine, imipramine, doxepin, nortriptyline, and others; a beta andre--atenolol, carvedilol, labetalol, metoprolol, nadolol, nebivolol, propranolol, sotalol, and others; or an MAO inhibitor--isocarboxazid, linezolid, methylene blue injection, phenelzine, tranylcypromine, and others. This list is not complete. Other drugs may affect albuterol inhalation, including prescription and qpkq-[id number]-jqdcgbu medicines, vitamins, and herbal products. Not all possible drug interactions are listed here. Where can I get more information? Your doctor or pharmacist can provide more information about albuterol inhalation. Remember, keep this and all other medicines out of the reach of children, never share your medicines with others, and use this medication only for the indication prescribed. Every effort has been made to ensure that the information provided by [employer]. [employer]') is accurate, up-to-date, and complete, but no guarantee is made to that effect. Drug information contained herein may be time sensitive. [employer] information has been compiled for use by healthcare practitioners and consumers in the [place] and therefore [employer] does not warrant that uses outside of the [place] are appropriate, unless specifically indicated otherwise. [employer]'s drug information does not endorse drugs, diagnose patients or recommend therapy. [facility]'s drug information isan informational resource designed to assist licensed healthcare practitioners in caring for their p atients and/or to serve consumers viewing this service as a supplement to, and not a substitute for, the expertise, skill, knowledge and judgment of healthcare practitioners. The absence of a warningfor a given drug or drug combination in no way should be construed to indicate that the drug or drug combination is safe, effective or appropriate for any given patient. [facility] does not assume any responsibility for any aspect of healthcare administered with the aid of information [facility] provides. The information contained herein is not intended to cover all possible uses, directions, precautions, warnings, drug interactions, allergic reactions, or adverse effects. If you have questions about the drugs you are taking, check with your doctor, nurse or pharmacist. Copyright 9015-0071 [facility] [employer]. Version: 09.11. Revision Date: 06/21/2024. benzonatate (neri frye) What is the most important information I should know about benzonatate? Never suck or chew on a benzonatate capsule. Swallow the pill whole. Sucking or chewing the capsulemay cause serious side effects. Benzonatate is not approved for use by anyone younger than 10 years old. An overdose of benzonatatecan be fatal to a young child. What is benzonatate? Benzonatate is used to relieve coughing. Benzonatate is a non-narcotic cough medicine that numbs the throat and lungs, making the cough reflex less active. Benzonatate may also be used for purposes not listed in this medication guide. What should I discuss with my healthcare provider before taking benzonatate? You should not use this medicine if you are allergic to benzonatate or topical numbing medicines such as tetracaine or procaine (found in some insect bite and sunburn creams). Tell your doctor if you are or . Benzonatate is not approved for use by anyone younger than 10 years old. An overdose of benzonatatecan be fatal, especially to a young child who has accidentally swallowed the medicine. How should I take benzonatate? Follow all directions on your prescription label and read all medication guides or instruction sheets. Use the medicine exactly as directed. Never suck or chew on a benzonatate capsule. Swallow the pill whole. Sucking or chewing the capsulemay cause serious side effects. Store at room temperature away from moisture, heat, and light. What happens if I miss a dose? Skip the missed dose and use your next dose at the regular time. Do not use two doses at one time. What happens if I overdose? Seek emergency medical attention or call the Poison Help line at . An overdose of benzonatate can be fatal, especially to a child. Accidental has occurred in children under 10 years old. Overdose symptoms may include tremors, feeling restless, seizure (convulsions), slow heart rate, weak pulse, fainting, and slow breathing (breathing may stop). What should I avoid while taking benzonatate? Avoid eating or drinking anything while you feel numbness or tingling in your mouth or throat. What are the possible side effects of benzonatate? Stop taking this medicine and get emergency medical help if you have signs of an allergic reaction:hives; difficult breathing; swelling of your face, lips, tongue, or throat. Call your doctor at once if you have: severe drowsiness or dizziness; confusion, hallucinations. ongoing numbness or tingling in your mouth, throat, or face; numbness in your chest; a choking feeling; chills; or burning in your eyes. Some of these side effects may result from chewing or sucking on a benzonatate capsule. Common side effects may include: headache, dizziness; nausea, upset stomach; constipation; itching, rash; or stuffy nose. This is not a complete list of side effects and others may occur. Call your doctor for medical advice about side effects. You may report side effects to FDA at 2-110-TLF-1846. What other drugs will affect benzonatate? Using benzonatate with other drugs that make you drowsy can worsen this effect. Ask your doctor before using opioid medication, a sleeping pill, a muscle relaxer, or medicine for anxiety or seizures. Other drugs may affect benzonatate, including prescription and bmri-neu-moapuca medicines, vitamins, and herbal products. Tell your doctor about all your current medicines and any medicine you start or stop using. Where can I get more information? Your pharmacist can provide more information about benzonatate. Remember, keep this and all other medicines out of the reach of children, never share your medicines with others, and use this medication only for the indication prescribed. Every effort has been made to ensure that the information provided by [employer]. [employer] is accurate, up-to-date, and complete, but no guarantee is made to that effect. Drug information contained herein may be time sensitive. [employer] information has been compiled for use by healthcare practitioners and consumers in the [place] and therefore [employer] does not warrant that uses outside of the [place] are appropriate, unless specifically indicated otherwise. [employer] drug information does not endorse drugs, diagnose patients or recommend therapy. [employer] drug information isan informational resource designed to assist licensed healthcare practitioners in caring for their p atients and/or to serve consumers viewing this service as a supplement to, and not a substitute for, the expertise, skill, knowledge and judgment of healthcare practitioners. The absence of a warningfor a given drug or drug combination in no way should be construed to indicate that the drug or drug combination is safe, effective or appropriate for any given patient. [employer] does not assume any responsibility for any aspect of healthcare administered with the aid of information [employer] provides. The information contained herein is not intended to cover all possible uses, directions, precautions, warnings, drug interactions, allergic reactions, or adverse effects. If you have questions about the drugs you are taking, check with your doctor, nurse or pharmacist. Copyright [id number] [employer]. Version: 09.10. Revision Date: 06/12/2023. furosemide (oral/injection) (fur [place] se mide) Furoscix, Lasix What is the most important information I should know about furosemide? You should not use this medicine if you are unable to urinate. Using more than your recommended dose will not make this medicine more effective. High doses of furosemide may cause irreversible hearing loss. Tell your doctor about all your other medicines. Some drugs should not be used with furosemide. What is furosemide? Furosemide is used to treat fluid retention (edema) in people with congestive heart failure, liver disease, or a kidney disorder such as nephrotic syndrome. Furosemide is also used to treat high blood pressure (hypertension). The Furoscix brand of furosemide is only used in adults. Furosemide may also be used for purposes not listed in this medication guide. What should I discuss with my healthcare provider before using furosemide? You should not use furosemide if you are allergic to it, if you are unable to urinate or have hepatic cirrhosis. You should not use Furoscix if you have ascites or have allergies to medical adhesives. Tell your doctor if you have ever had: an electrolyte imbalance (such as low levels of potassium or magnesium in your blood); enlarged prostate, bladder obstruction, or other urination problems; gout; lupus; diabetes; an allergy to sulfa drugs; kidney disease; or cirrhosis or other liver disease. Tell your doctor if you have an MRI (magnetic resonance imaging) or any type of scan using a radioactive dye that is injected into a vein. Contrast dyes and furosemide can harm your kidneys. It is not known if furosemide will harm an unborn baby. Tell your doctor if you are or plan to become . It may not be safe to breastfeed while using this medicine. Ask your doctor about any risk. Furosemide may slow breast milk production. How should I use furosemide? Follow all directions on your prescription label and read all medication guides or instruction sheets. Use the medicine exactly as directed. Furosemide oral is taken by mouth. Furosemide injection is given in a muscle, under the skin, or isaac vein. A healthcare provider will give you this injection if you are unable to take the medicine by mouth. Furoscix infusion lasts about 5 hours. Furoscix should not get wet. Do not bathe, shower, swim or exercise while wearing the infusor. Also do not apply any products such as lotions or creams in the area where the infusor is placed. It is not recommended to travel by car or airplane while using Furoscix. Also do not use the infusor within 12 inches of mobile phones, tablets, computers, or wireless accessories such as remote control, or [employer] devices. Do not reuse a needle, syringe or cartridge. Place them in a puncture-proof 'sharps' container and dispose of it following state or local laws. Keep out of the reach of children and pets. You may receive your first dose in a hospital or clinic setting if you have severe liver disease. Do not use more than your recommended dose. High doses of furosemide may cause irreversible hearingloss. Measure liquid medicine with the supplied measuring device (not a kitchen spoon). Doses are based on weight in children and teenagers. Your child's dose may change if the child gains or loses weight. Furosemide will make you urinate more often and you may get dehydrated easily. Follow your doctor'sinstructions about using potassium supplements or getting enough salt and potassium in your diet. This medicine can affect the results of certain medical tests. Tell any doctor who treats you that you are using furosemide. Your blood pressure will need to be checked often and you may need other medical tests. If you have high blood pressure, keep using this medicine even if you feel well. High blood pressure often has no symptoms. If you need surgery, tell the surgeon ahead of time that you are using furosemide. Store at room temperature away from moisture, heat, and light. Throw away any unused oral liquid after 90 days. What happens if I miss a dose? Furosemide is sometimes used only once, if you are not on a dosing schedule. If you are using the medication regularly, use the medicine as soon as you can, but skip the missed dose if it is almost time for your next dose. Do not use two doses at one time. What happens if I overdose? Seek emergency medical attention or call the Poison Help line at . Overdose symptoms may include feeling very thirsty or hot, heavy sweating, hot and dry skin, extreme weakness, or fainting. What should I avoid while using furosemide? Avoid getting up too fast from a sitting or lying position, or you may feel dizzy. Avoid becoming dehydrated. Follow your doctor's instructions about the type and amount of liquids you should drink while you are using furosemide. Drinking alcohol with this medicine can cause side effects. Furosemide could make you sunburn more easily. Avoid sunlight or tanning beds. Wear protective clothing and use sunscreen (SPF 30 or higher) when you are outdoors. If you have high blood pressure, ask a doctor or pharmacist before taking any medicines that can raise your blood pressure, such as diet pills or inrze-vxv-cxys medicine. What are the possible side effects of furosemide? Get emergency medical help if you have signs of an allergic reaction (hives, difficult breathing, swelling in your face or throat) or a severe skin reaction (fever, sore throat, burning eyes, skin pain, red or purple skin rash with blistering and peeling). Call your doctor at once if you have: a light-headed feeling, like you might pass out; ringing in your ears, hearing loss; muscle spasms or contractions; pale skin, easy bruising, unusual bleeding; high blood sugar--increased thirst, increased urination, dry mouth, fruity breath odor; kidney problems--swelling, urinating less, feeling tired or short of breath; signs of liver or pancreas problems--loss of appetite, upper stomach pain (that may spread to your back), nausea or vomiting, dark urine, jaundice (yellowing of the skin or eyes); or signs of an electrolyte imbalance--increased thirst or urination, constipation, muscle weakness, leg cramps, numbness or tingling, feeling jittery, fluttering in your chest. Common side effects may include: diarrhea, constipation, loss of appetite; numbness or tingling; headache, dizziness; or blurred vision. This is not a complete list of side effects and others may occur. Call your doctor for medical advice about side effects. You may report side effects to FDA at 3-342-PMT-6592. What other drugs will affect furosemide? Sometimes it is not safe to use certain medicines at the same time. Some drugs can affect your blood levels of other drugs you use, which may increase side effects or make the medicines less effective If you also take sucralfate, take your furosemide dose 2 hours before or 2 hours after you take sucralfate. Tell your doctor about all your other medicines, especially: another diuretic, especially ethacrynic acid; methotrexate; chloral hydrate; lithium; phenytoin; an antibiotic; cancer medicine, such as cisplatin; heart or blood pressure medicine; or NSAIDs (nonsteroidal anti-inflammatory drugs)--aspirin, ibuprofen (Advil, Motrin), naproxen (Aleve), celecoxib, diclofenac, indomethacin, meloxicam, and others. This list is not complete. Other drugs may affect furosemide, including prescription and pkzs-luc-ouzyxxs medicines, vitamins, and herbal products. Not all possible drug interactions are listed here. Where can I get more information? Your doctor or pharmacist can provide more information about furosemide. Remember, keep this and all other medicines out of the reach of children, never share your medicines with others, and use this medication only for the indication prescribed. Every effort has been made to ensure that the information provided by [employer]. [employer] is accurate, up-to-date, and complete, but no guarantee is made to that effect. Drug information contained herein may be time sensitive. [employer] information has been compiled for use by healthcare practitioners and consumers in the [place] and therefore [employer] does not warrant that uses outside of the [place] are appropriate, unless specifically indicated otherwise. [employer] drug information does not endorse drugs, diagnose patients or recommend therapy. [employer] drug information isan informational resource designed to assist licensed healthcare practitioners in caring for their p atients and/or to serve consumers viewing this service as a supplement to, and not a substitute for, the expertise, skill, knowledge and judgment of healthcare practitioners. The absence of a warningfor a given drug or drug combination in no way should be construed to indicate that the drug or drug combination is safe, effective or appropriate for any given patient. [employer] does not assume any responsibility for any aspect of healthcare administered with the aid of information [employer] provides. The information contained herein is not intended to cover all possible uses, directions, precautions, warnings, drug interactions, allergic reactions, or adverse effects. If you have questions about the drugs you are taking, check with your doctor, nurse or pharmacist. Copyright 8071-5883 [employer]. Version: 20.. Revision Date: 04/20/2024. Education Materials How to Quit Smoking Smoking is a hard habit to break. About half of all people who have ever smoked have been able to quit. Most people who still smoke want to quit. Here are some of the best ways to stop smoking. Keep in mind the health benefits of quitting The health benefits of quitting start right away. They keep improving the longer you go without smoking. Knowing this can help inspire you to stay on track. These benefits occur at any age. If you are 17 or 70, quitting is a good choice. Some of the health benefits after your last cigarette include: 20 minutes: Your blood pressure and pulse return to normal. 8 hours: Your oxygen levels return to normal. 2 days: Your ability to smell and taste start to improve as damaged nerves regrow. 2 to 3 weeks: Your circulation and lung function improve. 1 to 9 months: Your coughing, congestion, and shortness of breath decrease. Your tiredness decreases. 1 year: Your risk of heart attack decreases by half. 5 years: Your risk of lung cancer decreases by half. Your risk of stroke becomes the same as a nonsmoker s. Go cold turkey Most former smokers quit cold turkey. This means stopping all at once. Trying to cut back slowly often doesn't work as well. This may be because it continues the habit of smoking. Also, you may inhale more smoke while smoking fewer cigarettes. This leads to the same amount of nicotine in your body. Get support Support programs can be a big help, especially for heavy smokers. These groups offer lectures, waysto change behavior, and peer support. Here are some ways to find a support program: Free national quitline 119-MDUR-CZL (275-741-2711) [facility] quit-smoking programs [place] [employer] [phone] [place] [employer] [phone] Support at home is important too. Family and friends can offer praise and reassurance. If the smoker in your life finds it hard to quit, encourage them to keep trying. Try jaze-ewv-stnpkyv medicine Nicotine replacement therapy may make it easier to quit. Some aids are available without a prescription. These include a nicotine patch, gum, and lozenges. But it is best to use these under the care of your healthcare provider. The skin patch gives a steady supply of nicotine. Nicotine gum and lozenges give short- time doses of low levels of nicotine. Both methods reduce the craving for cigarettes. If you have nausea, vomiting, dizziness, weakness, or a fast heartbeat, stop using these products.See your healthcare provider. Ask about prescription medicine After reviewing your smoking patterns and past attempts to quit, your doctor may offer a prescription medicine such as bupropion, varenicline, a nicotine inhaler, or nasal spray. Each has advantages and side effects. Your doctor can review these with you. Keep trying Most smokers make many attempts at quitting before they are successful. It s important not to give up. For more information For more on how to quit smoking, try these online resources: Go to Smokefree.gov. Read Clearing the Air from the National [employer] [place] at smokefree.gov/sites/default/files/pdf/zrqvcfsc-nto-wha-accessible.pdf. 3635-9275 [employer]. [address] [place] [address]. All rights reserved. This information is not intended as a substitute for professional medical care. Always follow yourhealthcare professional's instructions. Left- or Right- Side Congestive Heart Failure (CHF) The heart is a large muscle that acts as a pump to circulate blood throughout the body. Blood carries oxygen to all of the organs, including the brain, muscles, and skin. After your body takes the oxygen out of the blood, the blood returns to the heart. The right side of the heart collects the blood from the body and pumps it to the lungs. In the lungs, it gets fresh oxygen and gives up carbon dioxide. The oxygen-rich blood from the lungs then returns to the left side of the heart, where it is pumped back out to the rest of your body, starting the process all over. Congestive heart failure (CHF) occurs when the heart muscle does not function normally, leading to fluid retention or reduces blood flow. This can be caused by heart muscle weakness or stiffness, or a heart valve problem. Heart failure can affect the right side of the heart or the left side. But heart failure may affect not only the right side of the heart or only the left side. Although it may have started on one side, it can and often eventually does affect both sides. Right-side heart failure When the right side of the heart is failing, it can t handle the blood it is getting from the rest of the body. This blood returns to the heart through veins. When too much pressure builds up in the veins, fluid leaks out into the tissues. Stephenson then causes that fluid to move to those parts of the body that are the lowest. So one of the first symptoms of right-side CHF can include swelling in the feet and ankles. If the condition gets worse, the swelling can even go up past the knees. Sometimes it gets so severe, the liver and intestines can get congested as well. Left-side heart failure When the left side of the heart is failing, it can t handle the blood it gets from the lungs. Pressure then builds up in the veins of the lungs, causing fluid to leak into the lung tissues. This may cause CHF and pulmonary edema. This causes you to feel short of breath, weak, or dizzy. These symptoms are often worse with exertion, such as when climbing stairs or walking up hills. Lying with your head flat is uncomfortable and can make your breathing worse. This may make sleeping difficult. You may need to use extra pillows to elevate your upper body to sleep well. The same is true when just resting during the daytime. You may also feel weak or tired and have less energy during exertion. There are many causes of heart failure including: Coronary artery disease Past heart attack (also known as acute myocardial infarction, or AMI) High blood pressure Damaged heart valve Diabetes Obesity Cigarette smoking Alcohol abuse Heart failure is usually a chronic condition. The purpose of medical treatment is to improve the pumping action of the heart and to remove excess water from the body. A number of medicines can help reach this goal, improve symptoms, and prevent the heart from becoming weaker. Sometimes, heart failure can become so severe that a device is placed in the heart to help with pumping. Another major goal is to better treat the causes of heart failure, such as diabetes and high blood pressure, by making changes in your lifestyle and maximizing medical control when needed. Home care Follow these guidelines when caring for yourself at home: Check your weight every day. This is very important because a sudden increase in weight gain could mean worsening heart failure. Keep these things in mind: oUse the same scale every day. oWeigh yourself at the same time every day. oMake sure the scale is on a hard floor surface, not on a rug or carpet. oKeep a record of your weight every day so your healthcare provider can see it. If you are not given a log sheet for this, keep a separate journal for this purpose. Cut back on the amount of salt (sodium) you eat. Follow your healthcare provider's recommendation on how much salt or sodium you should have each day. oLimit high-salt foods. These include olives, pickles, smoked meats, salted potato chips, and most prepared foods. oDon't add salt to your food at the table. Use only small amounts of salt when cooking. oRead the labels carefully on food packages to learn how much salt or sodium is in each serving in the package. Remember, a can or package of food may contain more than 1 serving. So if you eat all the food in the package, you may be getting more salt than you think. Follow your healthcare provider's recommendations about how much fluid you should have. Be aware that some foods, such as soup, pudding, and juicy fruits like oranges or melons, contain liquid. You'll need to count the liquid in those foods as part of your daily fluid intake. Your provider can helpyou with this. Stop smoking. Cut back on how much alcohol you drink. Lose weight if you are overweight. The excess weight adds a lot of stress on the workload of the heart. Stay active. Talk with your provider about an exercise program that is safe for your heart. Keep your feet elevated to reduce swelling. Ask your provider about support hose as a preventive treatment for daytime leg swelling. Besides taking your medicine as instructed, an important part of treatment is lifestyle changes. These include diet, physical activity, stopping smoking, and weight control. Improve your diet by including more fresh foods, cutting back on how much sugar and saturated fat you eat, and eating fewer processed foods and less salt. Follow-up care Follow up with your healthcare provider, or as advised. Make sure to keep any appointments that were made for you. These can help better control your congestive heart failure. You will need to follow up with your provider on a routine basis to make sure your heart failure is well managed. If an X-ray, electrocardiogram (ECG), or other tests were done, you will be told of any new findings that may affect your care. Call 911 Call 911 if you: Become severely short of breath Feel lightheaded, or feel like you might pass out or faint Have chest pain or discomfort that is different than usual, the medicines your doctor told you to use for this don't help, or the pain lasts longer than 10 to 15 minutes You suddenly develop a rapid heart rate When to seek medical advice The following may be signs that your heart failure is getting worse. Call your healthcare provider right away if any of these happen: Sudden weight gain. This means 3 or more pounds in one day, or 5 or more pounds in 1 week Trouble breathing not related to being active New or increased swelling of your legs or ankles Swelling or pain in your abdomen Breathing trouble at night. This means waking up short of breath or needing more pillows to breathe. Frequent coughing that doesn t go away Feeling much more tired than usual 2038-6383 [employer]. [address] [place] [address], [place] [address]. All rights reserved. This information is not intended as a substitute for professional medical care. Always follow yourhealthcare professional's instructions. Viral Upper Respiratory Illness with Wheezing (Adult) You have a viral upper respiratory illness (URI), which is another term for the common cold. When the infection causes a lot of irritation, the air passages can go into spasm. This causes wheezing and shortness of breath. This illness is contagious during the first few days. It is spread through the air by coughing and sneezing. It may also be spread by direct contact. This could be by touching the sick person and then touching your own eyes, nose, or mouth. Frequent handwashing will decrease the risk. Most viral illnesses go away within 7 to 10 days with rest and simple home remedies. Sometimes the illness may last for several weeks. Antibiotics will not kill a virus, and they are generally not prescribed for this condition. Home care If symptoms are severe, rest at home for the first 2 to 3 days. When you resume activity, don't letyourself get too tired. If you smoke, stop. Ask your healthcare provider if you need help. Stay away from secondhand cigarette smoke. Don't let people smoke in your house or car. You may use acetaminophen or ibuprofen to control pain and fever, unless another medicine was prescribed. Take the medicine only as directed on the label. If you have chronic liver or kidney disease,have ever had a stomach ulcer or gastrointestinal bleeding, or are taking blood-thinning medicines,talk with your healthcare provider before using these medicines. Aspirin should never be given to anyone under 18 years of age who is ill with a viral infection or fever. It may cause severe liver orbrain damage. Your appetite may be poor, so a light diet is fine. Stay well hydrated by drinking 6 to 8 glasses of fluids per day (water, soft drinks, juices, tea, or soup). Extra fluids will help loosen secretions in the nose and lungs. Xjxo-lwo-xwgdhfc cold medicines will not shorten the length of time you re sick, but they may be helpful for the following symptoms: cough, sore throat, and nasal and sinus congestion. Ask your healthcare provider or pharmacist which qewy-qqh-bbtirtc medicine to use. Don't use decongestants if you have high blood pressure. Follow-up care Follow up with your healthcare provider, or as advised. When to seek medical advice Call your healthcare provider right away if any of these occur: Cough with lots of colored sputum (mucus) Severe headache; face, neck, or ear pain Difficulty swallowing due to throat pain Fever of 100.4 F (38 C) or higher, or as directed by your healthcare provider Call 911 Call 911 if any of these occur: Chest pain, shortness of breath, worsening wheezing, or difficulty breathing Coughing up blood Very severe pain when swallowing, especially if it goes along with a muffled voice 2785-1382 [employer]. [address] [place] [address]. All rights reserved. This information is not intended as a substitute for professional medical care. Always follow yourhealthcare professional's instructions. Additional Information VACCINATE! IT SAVES LIVES! Members of the community who have not yet received the COVID-19 vaccine and would like to receive it can visit one of [facility] vaccine clinics. There are many vaccine clinic locations within the [facility]. For locations and available times, please visit www.gettheshot.coronavirus.[place].gov/. It is important to note that some COVID mobile vaccine clinics are held outdoors and may be canceled in rainy or stormy conditions. To learn more about pediatric vaccinations (ages 5-11), we invite you to visit the [facility] webpage. https://www.[facility].org/pages/7126-Gcyyq-Yrdrogbjgop-Yktodhpiec-Stcbo-Yrb stions.htmlTo learn more about the COVID-19 vaccine, we invite you to visit the CDC website for a list of frequently asked questions. https://www.cdc.gov/coronavirus/2019-ncov/vaccines/faq.html [facility] Patient Portal Access Instructions: Stay connected with your healthcare team and access your personal medical information anytime with the [facility] Patient Portal. If you would like a full copy of your medical records please contact the [facility] Medical Records Department Friday through Friday between 8a.m. and 4:30p.m. Please follow the directions below to access the portal: 1.Access the email account you provided upon registration to the [facility].2.Look for an invitation email from [facility].3.Open the email and access the invitation link: Accept Invitation to [facility]4.Fill in the required hou to create your account. Sign into www.[employer] with your username and password that you created in the above steps to stay up to date. You can then view a summary of results, a summary of your visits, and the ability to download your summaries to your computer or send the information securely to a physician. Remember that your healthcare information is confidential, so carefully consider who you will allow to register on the [facility] Patient Portal for access to your information. You can also access the [facility] Patient Portal on the [employer] denae. Simply click on Health Records under [employer] and then click on the [employer] logo. HOW TO SAFELY DISPOSE OF PRESCRIPTION MEDICATIONS Please use one of the following methods to safely dispose of your unused medications. 1.Use a drug disposal kit: the drug disposal pouch allows you to safely discard your old and unuseddrugs. Ask your nurse to give you one when you are discharged.2.Visit a local take-back location: Many local pharmacies and police departments have programs that collect old and unwanted prescriptiondrugs. Call your local pharmacy or go to http://JournallyMe/1Z1Ls7g to find one close to you.3.Make use of household items: Use cat litter or old coffee grounds to dispose medications if other options arenot available. Mix your drugs with these household products, seal them in an airtight container andthrow it into the garbage. Call [facility]: [phone] to be sure your drugs can be disposed of in this way. Some medicines may require a different approach.4.Never flush your medications down the toilet. IF YOU HAVE BEEN PRESCRIBED AN OPIOIDS FOR PAIN If you have been prescribed an opioid (such as hydrocodone, oxycodone or morphine), it is critical to understand the possible side effects and risks of opioid pain medications. Even when taken as directed, opioids can have several side effects including: Tolerance, meaning you might need to take more of a medication for the same pain relief. Nausea, vomiting and/or constipation. Sleepiness, dizziness, dry mouth, confusion, depression or itching. Physical dependence, meaning you have withdrawal symptoms when a medication is stopped ? this can develop within a few days. KNOW YOUR RESPONSIBILITIES It is important to know exactly how much and how often to take the opioid pain medications you are prescribed. Never take opioids in higher amounts or more often than prescribed. Do not combine opioids with alcohol or other drugs that cause drowsiness, such as benzodiazepines, also known as benzos,including diazepam and alprazolam, muscle relaxants or sleep aids. Never sell or share prescriptionopioids. This is illegal. Store opioids in a secure place and out of reach of others (including children, family, friends and visitors). The last page(s) of this document has been signed and retained as a CHART COPY Signatures Patient Education Materials Smoking Cessation Heart Failure, Congestive (CHF) URI, Viral W/ Wheezing (Adult) Medication Leaflets albuterol inhalation, benzonatate, furosemide (oral/injection) My discharge plan and instructions have been reviewed and explained to me and I,PANCHO LOPEZ understand my current condition and have read and understand these discharge instructions. I have received a written copy of the plan/instructions. If I have questions, I am aware that I should contact my doctor. 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: Date/Time: Relationship to Patient: Witness Name/Signature: Date/Time: [facility] Progrnjp note No data available for this section [facility] Progress note Author Connie Quick [facility] July 16, 2023 2:05am Note Date/Time July 16, 2023 2:05am [facility] Medical Records Department [address] [place] [address] Progress Note - Hospitalist 07/16/23 0205 MR#: [id number] Acct: [id number] Name: PANCHO LOPEZ PATRICIA Rep #:[id number] : 1985 37 From: Connie Quick MD PCP: Care Physician,No Primary Status :REG ER Location: ED Hospitalist Note The patient is a 37 y/o M w/ PMHx: Polysubstance abuse (Methamphetamine use), History EtOH abuse, HTN, HLD, CAD s/p recent PCI/NSTEMI, Ischemic Cardiomyopathy/HFrEF, Obesity, Tobacco use, recent discharge 2 days prior following history of exertional dyspnea for approximately 3 weeks with admission07/11/2023 at [facility] with hypertensive urgency and new onset heart failure (EF 30 to 35%) w/ elevated troponin c/w NSTEMI diagnosis with eventual cardiac catheterization with noted 95% stenosis RCA with PCI performed with initiation of aspirin and prasugrel as well as IV Lasix eventually transition tooral regimen who presents to the [facility] ED on 07/16/23 initially with history of 3 episodes of bright red blood in his stools with earlier in the a.m. with no associated abdominal pain with onset of left upper back discomfort worse with deep inspiratory effort with radiation also into the left chest prompting repeatED evaluation to be cautious. Recent admission H&P from [facility] noted renal artery Doppler 07/12/2023 with no evidence of any hemodynamically significant arterial stenosis with findings consistent with less than 60% stenosis in addition to lab work-up including TAVR creatinine 7.5 and aldosterone 8.9 both within the range of the lab references as well as urine protein creatinine ratio0.4 with urine protein 62.7/urine creatinine 148.6 in addition to TUSHAR negative/serum LENA levels 37 which is normal range, LDH 324 with planned pulmonary evaluation outpatient given mediastinal lymphadenopathy. During the prior admission he did have a urine drug screen which had positive methamphetamines. Work-up in the ED included T97, heart rate 83, BP 120/74, respiratory rate 22, 100% on room air with BP elevating to 194/141 with most recent repeat 121/87, CBC with WBC 10, hemoglobin 16.5, platelets 286 without marked shift, unremarkable coags, D-dimer 0.37, BMP with chloride 109,, oxide 20, glucose 138, initial troponin 141 with repeat 120 (from [facility] records mostrecent 07/11/23 high-sensitivity troponin 67.24), chest x-ray with no acute cardiopulmonary findings, CTPA unremarkable with no evidence of any pulmonary emboli or arterial dissection, CT abdomen and pelvis with IV contrast with no focal acute intra-abdominal process, positive stool guaiac, EKG with T wave inversions with sinus rhythm. ED did discuss case with on-call program and research coordinator who felt it reasonable to observe the patient with possibly a GI consult. Hospitalist physician Dr. Peña was consulted for admission and evaluated thepatient in addition to Dr. Fernandez with recommendation for transfer back to [facility] given recent procedure at their facility with acceptance by Dr. Rodriguez. Given the rectal bleeding anticoagulation/further antiplatelet therapy was held. In the ED patient ministered maintenance IV fluids, labetalol 20 mg IV x1, Zofran 4 mg IV x1 in addition to morphine 4 mg x 5 total doses. Patient fortunately obtained a bed 07/16/23 2:05 am. 07/16/23 0205 <Electronically signed by Connie Quick MD> Cosigner Signature (if applicable): CC: ~ Signed [facility] Work Phone: Reason for referral (narrative)* Consultation (Routine) - Authorized Specialty Diagnoses / Procedures Referred By Dorys t Referred To Contact Gastroenterology Diagnoses Rectal bleeding Procedures [place] OFFICE/OUTPATIENT [facility] 60-74 MINUTES Luis Walsh MD [address] [facility], [address] [place] [address] Mel Esparza MD [address] [facility] [address] [place] [address] Referral ID Status Reason Start Date Expiration Date Visits Requested Visits Authorized [id number] Authorized Specialty Services Required 06/09/2023 12/06/2023 1 1 [facility] Work Phone: Summary Purpose Family History No Family History Records Found Sibling Name Dates Details Family history of hypertensi on(V17.49, Z82.49) Status:Active Mother Name Dates Details Family history of hypertensi on(V17.49, Z82.49) Status:Active Family history of deafness o r hearing loss(V19.2, Z82.2) Status:Active Sibling Name Dates Details Family history of hypertensi on(V17.49, Z82.49) Status:Active Mother Name Dates Details Family history of hypertensi on(V17.49, Z82.49) Status:Active Family history of deafness o r hearing loss(V19.2, Z82.2) Status:Active Sibling Name Dates Details Family history of hypertensi on(V17.49, Z82.49) Status:Active Mother Name Dates Details Family history of hypertensi on(V17.49, Z82.49) Status:Active Family history of deafness o r hearing loss(V19.2, Z82.2) Status:Active Sibling Name Dates Details Family history of hypertensi on(V17.49, Z82.49) Status:Active Mother Name Dates Details Family history of hypertensi on(V17.49, Z82.49) Status:Active Family history of deafness o r hearing loss(V19.2, Z82.2) Status:Active Relationship Condition Age at Onset Recorded Date/T ron mother Hypertension Unknown Diabetes mellitus Unknown Advance Directives No Advanced Directives Records Found Advance Directive Response Recorded Date/ Time Living Will No July 15 10:16am Power of Commercial Stripper No July 15, 2023 10:16am Hospital Course Note HNO ID: [id number] Author: Akiko jeronimo (Aníbal) Kirsty Service: Critical Care Author Type: Resident Type: Discharge Summary Filed: 02/01/2019 5:17 PM Note Text: DISCHARGE SUMMARY PATIENT NAME: Pancho Lopez ADMISSION DATE: 01/23/2019 DISCHARGE DATE: 01/30/2019 ATTENDING PHYSICIAN: Nini att. providers found Code Status: Not on file Highest Readmission Risk Score: 13 The 30 day readmissions risk score is derived from an internally validated risk model which evaluates patient level characteristics, utilization history, medication orders and lab results up until the day of discharge. Patients with a score of 40 or above are considered highest risk for readmission. Specific patient level drivers will be listed at the bottom of the summary. REASON FOR HOSPITALIZATION: Epiglottis DIAGNOSIS: Active Problems: Disorder of upper airway Delirium Obesity, Class III, BMI >= 40 Malnutrition of mild degree (HCC) Resolved Problems: * No resolved hospital problems. * Ruled Out OPERATIONS DURING H (more content not included)... Chief Complaint and Reason for Visit Chief Complaint CHEST PAIN CHEST PAIN Additional Source Comments (unrecognized sect ion and content) No Status Records FoundNo Status Records FoundNo Status Records FoundNo Status Records FoundNo Status Records FoundNo Status Records FoundNo Status Records FoundNo Status Records FoundNo Status Records FoundNo Status Records FoundNo Status Records Found INFORMATION SOURCE (unrecogn ized section and content) DATE CREATED AUTHOR 02/06/2019 [facility] DATE CREATED AUTHOR AUTHOR'S ORGANIZ ATION 02/15/2019 [facility] DATE CREATED AUTHOR AUTHOR'S ORGANIZ ATION 09/21/2019 [facility] DATE CREATED AUTHOR AUTHOR'S ORGANIZ ATION 11/26/2019 [facility] DATE CREATED AUTHOR AUTHOR'S ORGANIZ ATION 11/26/2019 [facility] DATE CREATED AUTHOR AUTHOR'S ORGANIZ ATION 09/13/2020 [facility] DATE CREATED AUTHOR AUTHOR'S ORGANIZ ATION 06/05/2024 [facility] ([place]) DATE CREATED AUTHOR AUTHOR'S ORGANIZ ATION 10/21/2024 [facility] DATE CREATED AUTHOR AUTHOR'S ORGANIZ ATION 06/01/2025 [facility] DATE CREATED AUTHOR AUTHOR'S ORGANIZ ATION 06/01/2025 [facility] DATE CREATED AUTHOR AUTHOR'S ORGANIZ ATION 08/13/[address] [facility] Reason for Visit (unrecogniz ed section and content) Reason Comments rectal bleed with bowel movements Reason Comments Annual Exam Care Teams (unrecognized sec tion and content) 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 Jose Dunn DO Emergency Provider Active Dr. Connie Quikc MD Attending Provider Active Team Status: Inactive Member Role Status Dates No Primary Care Physician Primary Care Provider Active Dr. 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 This clinical summary was aggregated from multiple sources. Caution should be exercised in using it in the provision of clinical care. This summary normalizes information from multiple sources, and as a consequence, information in this document may materially change the coding, format and clinical context of patient data. In addition, data may be omitted in some cases. CLINICAL DECISIONS SHOULD BE BASED ON THE PRIMARY CLINICAL RECORDS. [facility] [employer] [facility]. provides no warranty or guarantee of the accuracy or completeness of information in this document.
[2025-11-04] MEDS: Midazolam 5 MG/ML Syringe IV (06:58)
--- NOTE | 2025-11-04 07:10 | RAD_ITS ---
PROCEDURE: CHEST 1 VIEW (PORTABLE) 11/04/2025 REASON FOR EXAM: ET TUBE TECHNIQUE: Frontal view of the chest. COMPARISON: Portable chest, 07/15/2023. FINDINGS: There has been interval development of patchy airspace consolidation in the mid and lower lung zones bilaterally. There is cardiomegaly. There are no pleural effusions. There may be some element of congestive heart failure. There is an endotracheal tube present with the tip 5.6 cm above the maribeth. RAD/Chest 1 View (Portable) IMPRESSION: 1. Multifocal airspace disease consistent with atelectasis or pneumonia. Card iomegaly. There may be some element of congestive heart failure. 2. There is an endotracheal tube with the tip in good position. Reading Location: [id number]
[2025-11-04] MEDS: Propofol 10MG/Ml 1,000 MG/100 ML Bottle 10.2 MG CONT INF (07:25)
--- NOTE | 2025-11-04 07:30 | RAD_ITS ---
PROCEDURE: CHEST 1 VIEW (PORTABLE) 11/04/2025 REASON FOR EXAM: ETT AND OG TECHNIQUE: Frontal view of the chest. COMPARISON: Chest radiograph 11/04/2025 FINDINGS: Hardware: Endotracheal tube extends 5 cm above the maribeth. Interval placement of an orogastric tube appears to course below the diaphragm. The distal tip is not imaged. Heart: Stable cardiomegaly. Lungs: Bilateral lung base opacification. Bibasilar atelectasis. Pleura: No pneumothorax. Bones: Unremarkable. RAD/Chest 1 View (Portable) IMPRESSION: Endotracheal tube extends 5 cm above the maribeth. Interval placement of a parti ally visualized orogastric tube coursing below the diaphragm. The distal tip is not imaged. No pneumothorax. Bilateral lung base opacification may reflect airspace diseas e. Reading Location: [id number]
--- NOTE | 2025-11-04 07:30 | ED.RN ---
The patient is intubated. Unable to complete medication reconciliation at this time.
[2025-11-04 07:32] LABS: AST(SGOT) 64 U/L (<=37); Alanine Aminotransfer ALT/SGPT 100 U/L (<=46); Albumin, Serum 4.2 g/dL (3.5-5.0); Alkaline Phosphatase 95 U/L (40-129); Anion Gap 10 (7-18); BUN 17 mg/dL (4-19); BUN/Creat Ratio 13.0 RATIO (10-20); Calcium,Total 9.4 mg/dL (7.6-11.0); Carbon Dioxide 28.0 mmol/L (20.0-29.0); Chloride 104 mmol/L (96-106); Globulin 3.1 g/dL (2.2-4.2); Glucose 133 mg/dL (70-99); Potassium 4.1 mmol/L (3.5-5.1)
[2025-11-04] MEDS: Ceftriaxone 2 GM in 0.9% Normal Saline (50mL MB+) 50 ML IV (07:46)
[2025-11-04 08:17] LABS: Allen Test Positive; Base Excess -3 mmol/L (-2 to +2); FI02 80.0; PEEP 5; PO2 65 mmHG (75-100); RR 16; SITE L Radial; SO2 88 % (94-98)
[2025-11-04 09:06] LABS: CPK Total, Creatine Kinase 244 U/L (24-195); Triglycerides 280 mg/dL
--- NOTE | 2025-11-04 09:58 | PCA ---
CALLED [facility] @ 272. FAXED FACE SHEET OVER SENT IMAGES
--- NOTE | 2025-11-04 10:59 | PCA ---
CC CALLED @ 1040 ASKED IF PATIENT CAN GO TO [facility]. THE ICU DR CALLED BACK [address] ROSADO.
[2025-11-04] MEDS: Propofol 10MG/Ml 1,000 MG/100 ML Bottle 20.5 MG CONT INF (11:02)
[2025-11-04] MEDS: fentaNYL 100 MCG/2 ML Ampul IV (11:26)
[2025-11-04] MEDS: fentaNYL drip 100 ML 10 MCG CONT INF (11:38)
--- NOTE | 2025-11-04 11:38 | RAD_ITS ---
PROCEDURE: CHEST 1 VIEW (PORTABLE) 11/04/2025 REASON FOR EXAM: CHECK TUBE POSITION TECHNIQUE: Frontal view of the chest. COMPARISON: Chest x-ray study dated 11/04/2025 at 0 7 30 8 a.m. FINDINGS: Hardware: NG/ OG tube tip and port are projected over the region of the stomach. ET tube tip is positioned approximately 6.4 cm above the maribeth. Cardiac leads overlie the chest. Heart: Stable cardiomegaly Lungs: Bibasilar atelectasis and increased opacification of the lower lobes bilaterally. This is a similar finding when compared to the prior exam. Bones: Unremarkable. RAD/Chest 1 View (Portable) IMPRESSION: NG/ OG tube tip and port are projected over the region of the stomach. ET tube tip is positioned approximately 6.4 cm above the maribeth. Cardiac leads overlie the chest. Stable cardiomegaly Bibasilar atelectasis and increased opacification of the lower lobes bilaterall y. This is a similar finding when compared to the prior exam. Reading Location: [id number]
[2025-11-04 12:30] LABS: Allen Test Positive; Base Excess -3 mmol/L (-2 to +2); FI02 90.0; PEEP 5; PO2 185 mmHG (75-100); RR 24; SITE L Radial; SO2 100 % (94-98)
--- NOTE | 2025-11-04 13:00 | CM.ED ---
Social work Reason for referral: support for family Referral source: case find SW provided support to patient's father, Ben, who was standing in the hallway outside patient's room. Patient was being transferred to [facility] via their ambulance team. Ben stated not speaking with patient often lately and stated patient is Ben's stepson. Ben stated patient's mother, Eleanor, is currently in [place] and patient's sister, Blanca, called Ben today to let Ben know of patient's current condition. Ben stated disappointment in patient due to the way he has let himself go, but Ben also stated desire to support patient through whatever patient goes through. SW provided active listening and empathic support as needed. SW verified that Ben had directions to [facility] and had no further needs prior to leaving the ED. Ben stated no further needs and thanked SW for support. Arlen Vang, BOILING TUB OPERATOR, CYLINDER INSPECTOR AND TESTER
== END 2025-11-04 13:07 | disposition short-term general hospital (02) ==
PROVIDERS: Emergency Provider Specialist/Technologist Athletic Trainer; Visit Provider Specialist/Technologist Athletic Trainer
DX: J05.10 Acute epiglottitis without obstruction (principal); I13.0 Hypertensive heart and chronic kidney disease with heart failure and stage 1 through stage 4 chronic kidney disease, or unspecified chronic kidney disease; I50.22 Chronic systolic (congestive) heart failure; N18.30 Chronic kidney disease, stage 3 unspecified; R13.11 Dysphagia, oral phase; I25.10 Atherosclerotic heart disease of native coronary artery without angina pectoris; F17.210 Nicotine dependence, cigarettes, uncomplicated; Z79.899 Other long term (current) drug therapy; Z79.82 Long term (current) use of aspirin
CPT/HCPCS: G0463; 31500; 31720; 36600; 51702; 70492; 71045; 80053; 82550; 82803; 83605; 84478; 85025; 87070; 87077; 87186; 87205; 87651; 94002; 94640; 96361; 96365; 96372; 96375; 99252; 99285; Q9967; A4216; J0696; J2405